=== PATIENT | male | born 1950 | race Caucasian/White ===

== ENCOUNTER → 2017-10-17 14:05 | Outpatient (CLI) | payer MEDICARE, SELFPAY ==
--- NOTE | 2017-10-17 | DI.US.S_ITS ---
PROCEDURE: US PERIPH VENOUS LOW EXTREM LT INDICATIONS: PAIN AND SWELLING LEFT LEG TECHNIQUE: Real-time imaging, as well as color and pulse Doppler interrogation, were performed of the lower extremity deep veins from the inguinal ligament to the popliteal fossa. COMPARISON: None. FINDINGS: The deep veins are normally compressible, and free of intraluminal thrombus. Color and pulse Doppler demonstrate normal phasic intraluminal flow. There is normal augmentation response to distal compression maneuver. IMPRESSION: No DVT in the left lower extremity. Dictated by: Audelia Casey M.D. on 10/17/2017 at 15:35 Approved by: Audelia Casey M.D. on 10/17/2017 at 15:36
== END ==
PROVIDERS: Family Provider Orthopaedic Surgery; PCP Internal Medicine; Visit Provider Internal Medicine
DX: M79.605 Pain in left leg (principal); M79.89 Other specified soft tissue disorders
CPT/HCPCS: 93971

== ENCOUNTER → 2017-10-24 08:29 | Outpatient (CLI) | payer MEDICARE, SELFPAY ==
[2017-10-24 09:59] LABS: Alanine Aminotransferase 28 IU/L (21-72); Albumin 4.2 g/dL (3.5-5.0); Albumin Globulin Ratio 1.4 (1.0-2.8); Alkaline Phosphatase 47 U/L (38-126); Aspartate Aminotransferase 24 IU/L (17-59); BUN Creatinine Ratio 24.4 (6-22); Blood Urea Nitrogen 22 mg/dL (9-20); Calcium 9.3 mg/dL (8.4-10.2); Carbon Dioxide 33 mmol/L (22-32); Chloride 101 mmol/L (98-107); Estimated Glomerular Filt Rate > 60.0 mL/min (>60); Globulin 2.9 g/dL (1.7-4.1); Glucose 103 mg/dL (80-110); HEMOLYSIS < 15 (0-50); Potassium 3.9 mmol/L (3.4-5.1); Sodium 142 mmol/L (137-145); Total Protein 7.1 g/dL (6.3-8.2)
== END ==
PROVIDERS: PCP Internal Medicine; Visit Provider Internal Medicine Cardiovascular Disease
DX: I48.2 Chronic atrial fibrillation (principal); I42.9 Cardiomyopathy, unspecified
CPT/HCPCS: 36415; 80053

== ENCOUNTER → 2018-01-02 08:06 | Outpatient (CLI) | payer MEDICARE, SELFPAY ==
[2018-01-02 10:00] LABS: Add Manual Diff / Slide Review NO; Basophils Percent Auto 0.3 % (0-2); Eosinophils Percent Auto 1.9 % (2-4); Hematocrit 47.9 % (41-53); Lymphocytes Percent Auto 23.9 % (25-40); Mean Corpuscular HGB Conc 33.4 % (30-36); Mean Corpuscular Hemoglobin 32.4 PG (26-34); Monocytes Percent Auto 12.9 % (3-14); Neutrophils Absolute Auto 2600 /uL (3000-5900); Platelet Count 221 X10^3/uL (150-400); Red Blood Cell Count 4.94 X10^6/uL (4.5-5.9); Red Cell Distribution Width 14.7 % (11.6-14.8); White Blood Cell Count 4.3 X10^3/uL (4.5-11.0)
[2018-01-02 10:19] LABS: Erythrocyte Sedimentation Rate 1 MM/HR (0-15)
[2018-01-02 10:52] LABS: Alanine Aminotransferase 30 IU/L (21-72); Albumin 4.3 g/dL (3.5-5.0); Albumin Globulin Ratio 1.3 (1.0-2.8); Alkaline Phosphatase 48 U/L (38-126); Aspartate Aminotransferase 30 IU/L (17-59); BUN Creatinine Ratio 26.3 (6-22); Blood Urea Nitrogen 21 mg/dL (9-20); Calcium 9.1 mg/dL (8.4-10.2); Carbon Dioxide 28 mmol/L (22-32); Chloride 104 mmol/L (98-107); Cholesterol 187 mg/dL (140-199); Estimated Glomerular Filt Rate > 60.0 mL/min (>60); Globulin 3.2 g/dL (1.7-4.1); Glucose 101 mg/dL (80-110); HDL Cholesterol 47 mg/dL (40-60); LDL Cholesterol Calculated 113 mg/dL (<100); Potassium 3.9 mmol/L (3.4-5.1); Sodium 144 mmol/L (137-145); Total Protein 7.5 g/dL (6.3-8.2); Triglycerides 135 mg/dL (35-150)
[2018-01-02 11:58] LABS: HEMOLYSIS < 15 (0-50)
== END ==
PROVIDERS: PCP Internal Medicine; Visit Provider Internal Medicine
DX: I48.2 Chronic atrial fibrillation (principal); M15.0 Primary generalized (osteo)arthritis; E29.1 Testicular hypofunction; I50.22 Chronic systolic (congestive) heart failure
CPT/HCPCS: 36415; 80053; 80061; 84403; 85025; 85651

== ENCOUNTER → 2018-05-29 08:28 | Outpatient (CLI) | payer MEDICARE, SELFPAY ==
[2018-05-29 10:00] LABS: Cholesterol 201 mg/dL (140-199); HDL Cholesterol 47 mg/dL (40-60); LDL Cholesterol Calculated 124 mg/dL (<100); Triglycerides 152 mg/dL (35-150)
[2018-05-29 10:32] LABS: Testosterone 81.2 ng/dL (71.8-623)
== END ==
PROVIDERS: PCP Internal Medicine; Visit Provider Internal Medicine
DX: I10 Essential (primary) hypertension (principal); E29.1 Testicular hypofunction
CPT/HCPCS: 36415; 80061; 84403

== ENCOUNTER → 2018-09-06 07:06 | Outpatient (CLI) | payer MEDICARE, SELFPAY ==
[2018-09-06 08:32] LABS: Add Manual Diff / Slide Review NO; Basophils Absolute Auto 0 /uL (0-100); Basophils Percent Auto 0.5 % (0-2); Eosinophils Absolute Auto 0 /uL (0-450); Eosinophils Percent Auto 1.1 % (2-4); Hematocrit 48.1 % (41-53); Hemoglobin 16.1 g/dL (13.5-17.5); Lymphocytes Absolute Auto 900 /uL (1100-4500); Lymphocytes Percent Auto 21.2 % (25-40); Mean Corpuscular HGB Conc 33.4 % (30-36); Mean Corpuscular Hemoglobin 33.1 PG (26-34); Mean Corpuscular Volume 98.9 fL (80-100); Monocytes Absolute Auto 500 /uL (0-900); Monocytes Percent Auto 11.1 % (3-14); Neutrophils Absolute Auto 2900 /uL (1500-7000); Neutrophils Percent Auto 66.1 % (50-75); Platelet Count 228 X10^3/uL (150-400); Red Blood Cell Count 4.86 X10^6/uL (4.5-5.9); Red Cell Distribution Width 14.7 % (11.6-14.8); White Blood Cell Count 4.5 X10^3/uL (4.5-11.0)
[2018-09-06 08:44] LABS: Alanine Aminotransferase 25 IU/L (21-72); Albumin 4.2 g/dL (3.5-5.0); Albumin Globulin Ratio 1.4 (1.0-2.8); Alkaline Phosphatase 52 U/L (38-126); Aspartate Aminotransferase 28 IU/L (17-59); BUN Creatinine Ratio 27.8 (6-22); Bilirubin Total 0.7 mg/dL (0.2-1.3); Blood Urea Nitrogen 25 mg/dL (9-20); Calcium 9.5 mg/dL (8.4-10.2); Carbon Dioxide 32 mmol/L (22-32); Chloride 101 mmol/L (98-107); Cholesterol 193 mg/dL (140-199); Estimated Glomerular Filt Rate > 60.0 mL/min (>60); Globulin 2.9 g/dL (1.7-4.1); Glucose 105 mg/dL (80-110); HDL Cholesterol 52 mg/dL (40-60); HEMOLYSIS 20 (0-50); LDL Cholesterol Calculated 109 mg/dL (<100); Potassium 4.5 mmol/L (3.4-5.1); Sodium 139 mmol/L (137-145); Total Protein 7.1 g/dL (6.3-8.2); Triglycerides 158 mg/dL (35-150)
== END ==
PROVIDERS: PCP Internal Medicine; Visit Provider Internal Medicine Cardiovascular Disease
DX: E78.5 Hyperlipidemia, unspecified (principal); I48.2 Chronic atrial fibrillation; I42.9 Cardiomyopathy, unspecified
CPT/HCPCS: 36415; 80053; 80061; 85025

== ENCOUNTER → 2019-02-25 08:25 | Outpatient (CLI) | payer MEDICARE, SELFPAY ==
[2019-02-28 17:15] LABS: Sex Hormone Binding Globulin 33 nmol/L (22-77); Testosterone, Bioavailable 144.9 ng/dL (15.0-150.0); Testosterone, Total 553 ng/dL (250-1100); Testosterone,Free 78.8 pg/mL (6.0-73.0)
== END ==
PROVIDERS: PCP Student in an Organized Health Care Education/Training Program; Visit Provider Student in an Organized Health Care Education/Training Program
DX: E29.1 Testicular hypofunction (principal)
CPT/HCPCS: 36415; 82040; 84270; 84403

== ENCOUNTER → 2019-06-11 12:03 | Outpatient (CLI) | payer MEDICARE, SELFPAY ==
[2019-06-11 12:55] LABS: Prothrombin Time 45.5 SECONDS (10.1-12.7)
== END ==
PROVIDERS: PCP Student in an Organized Health Care Education/Training Program; Referring Provider Internal Medicine Cardiovascular Disease; Visit Provider Internal Medicine Cardiovascular Disease
DX: I48.0 Paroxysmal atrial fibrillation (principal)
CPT/HCPCS: 36415; 85610

== ENCOUNTER → 2019-11-04 12:32 | Outpatient (CLI) | payer MEDICARE, SELFPAY ==
[2019-11-05 12:51] LABS: COVID19 Sendout Not Detected (Not Detect)
== END ==
PROVIDERS: PCP Student in an Organized Health Care Education/Training Program; Visit Provider Physician Assistant
DX: Z11.59 Encounter for screening for other viral diseases (principal); R06.02 Shortness of breath
CPT/HCPCS: 87635

== ENCOUNTER 2019-11-19 09:36 | Emergency (ER) | payer MEDICARE, SELFPAY ==
[2019-11-19 09:40] VITALS: BP 123/72; PULSE 64; RESP 14; TEMP 36.7; O2SAT 96
[2019-11-19 10:10] LABS: Add Manual Diff / Slide Review NO; Basophils Absolute Auto 0 /uL (0-100); Basophils Percent Auto 0.3 % (0-2); Eosinophils Absolute Auto 0 /uL (0-450); Eosinophils Percent Auto 0.3 % (2-4); Hemoglobin 15.3 g/dL (13.5-17.5); Lymphocytes Absolute Auto 600 /uL (1100-4500); Mean Corpuscular HGB Conc 33.4 % (30-36); Mean Corpuscular Hemoglobin 32.9 PG (26-34); Mean Corpuscular Volume 98.6 fL (80-100); Monocytes Absolute Auto 800 /uL (0-900); Monocytes Percent Auto 8.9 % (3-14); Neutrophils Absolute Auto 7500 /uL (1500-7000); Neutrophils Percent Auto 83.5 % (50-75); Platelet Count 183 X10^3/uL (150-400); Red Blood Cell Count 4.66 X10^6/uL (4.5-5.9)
[2019-11-19 10:18] LABS: INR 3.8 (0.9-1.3); Prothrombin Time 43.1 SECONDS (10.1-12.7)
[2019-11-19 10:20] LABS: PTT Partial Thromboplastin Tim 46 SECONDS (26.4-36.2)
[2019-11-19 10:21] LABS: Alanine Aminotransferase 21 IU/L (<50); Albumin 4.1 g/dL (3.5-5.0); Albumin Globulin Ratio 1.3 (1.0-2.8); Alkaline Phosphatase 48 U/L (38-126); Aspartate Aminotransferase 35 IU/L (17-59); BUN Creatinine Ratio 28.1 (6-22); Bilirubin Total 1.3 mg/dL (0.2-1.3); Blood Urea Nitrogen 25 mg/dL (9-20); Calcium 9.3 mg/dL (8.4-10.2); Carbon Dioxide 26 mmol/L (22-32); Chloride 105 mmol/L (98-107); Estimated Glomerular Filt Rate > 60.0 mL/min (>60); Globulin 3.2 g/dL (1.7-4.1); Glucose 108 mg/dL (80-110); Lipase 85 U/L (23-300); Potassium 4.3 mmol/L (3.4-5.1); Sodium 137 mmol/L (137-145); Total Protein 7.3 g/dL (6.3-8.2)
[2019-11-19 10:22] LABS: HEMOLYSIS 67 (0-50)
[2019-11-19 10:27] VITALS: PULSE 57; O2SAT 96
[2019-11-19 10:30] VITALS: PULSE 54; O2SAT 95
[2019-11-19 10:31] VITALS: BP 109/58; PULSE 59; O2SAT 93
[2019-11-19] MEDS: PHENAZOPYRIDINE 100 MG TABLET PO (10:43)
[2019-11-19 10:49] LABS: Ictotest Urine Negative (Negative); RBC Urine 5-10/HPF (0-5/HPF)
[2019-11-19 10:50] LABS: Bacteria Urine Moderate (10-30); Culture Indicated Urine Specimen Cultured; Hyaline Casts Urine 0-1/LPF; WBC Urine 30-100/HPF (0-5/HPF)
--- NOTE | 2019-11-19 10:51 | ED_ITS ---
HPI - Male Genitourinary General Chief complaint: Urogenital-Male Stated complaint: Says he might have a kidney stone. Time Seen by Provider: 11/19/19 09:59 Source: patient Mode of arrival: Ambulatory Limitations: no limitations History of Present Illness HPI Narrative: Patient here with . Complains of urinary urgency as well as dysuria. Onset 4:00 a.m. this morning. Awoke him at distally. Has suprapubic discomfort. No other abdominal pain. No flank pain back pain chest pain. No fever or chills. Has history of enlarged prostate followed by family physician which is a new provider. Does not have a urologist. In no distress at this time. Patient was on Augmentin for pneumonia earlier this month Related Data Home Medications Medication Instructions Recorded Confirmed carvedilol 12.5 mg tablet 12.5 mg PO BID 10/18/18 11/04/19 furosemide 40 mg tablet 40 mg PO DAILY 10/18/18 11/04/19 lisinopril 10 mg tablet 10 mg PO DAILY 10/18/18 11/04/19 warfarin 10 mg tablet 5 mg PO DAILY 12/25/18 11/04/19 Previous Rx's Medication Instructions Recorded tadalafil 2.5 mg tablet 2.5 mg PO BEDTIME #90 tab 01/24/19 omeprazole magnesium 20 mg 20 mg PO BID #180 cap 02/04/19 capsule,delayed release testosterone 30 mg/actuation (1.5 2 pump TOP DAILY #270 ml 06/18/19 mL) transderm solution metered pump terazosin 5 mg capsule 5 mg PO BEDTIME #90 cap 06/26/19 dicyclomine 10 mg capsule 10 mg PO BID #180 cap 09/13/19 nitrofurantoin monohyd/m-cryst 100 mg PO Q12H 5 Days #10 cap 11/19/19 [Macrobid] phenazopyridine [Pyridium] 100 mg PO TID PRN #6 tab 11/19/19 Allergies Allergy/AdvReac Type Severity Reaction Status Date / Time latex [LATEX] Allergy Intermediate Verified 11/19/19 10:33 CAT/DOG DANDER Allergy Intermediate WATERY,ITCHY Uncoded 08/30/19 14:36 EYES,COUGHING/SNEEZING FITS DUST MITES Allergy Intermediate WATERY/ITCHY Uncoded 08/30/19 14:36 EYES,COUGH,SNEEZING MULTIPLE FOOD ALLERGIES Allergy Intermediate STOMACH Uncoded 08/30/19 14:36 CRAMPS,DIARRHEA GRASS,T Allergy Unknown WATERY Uncoded 08/30/19 14:36 EYES,COUGHING/SNEEZING Review of Systems Review of Systems Narrative: GENERAL: Denies chills, fatigue, malaise, fever, sweats. HEENT: Denies sinus pain, ear pain, sore throat, difficulty swallowing, dizziness. RESPIRATORY: Denies dyspnea, cough, wheezing, hemoptysis, sputum. CARDIOVASCULAR: Denies chest pain, palpitations, orthopnea, edema, GASTROINTESTINAL: Denies nausea, vomiting, abdominal pain, diarrhea, constipation, melena. : Complains of dysuria, frequency, denies incontinence, hematuria, urinary retention. MUSCULOSKELETAL: denies weakness, joint pain, or bony pain SKIN: Denies rash, skin lesions, or other NEUROLOGIC: Denies weakness, headache, numbness, change in speech, confusion, seizures, incoordination. PSYCHIATRIC: No concerning psychosocial issues. ROS Unobtainable: All systems reviewed & are unremarkable except as noted in HPI and below Patient History Medical History Atrial fibrillation (Chronic ~2014) Chicken pox (Resolved ~1959) Chronic back pain (Chronic ~2009) Deep vein thrombosis (Inactive ~1989) Foot pain (Inactive ~1989) Fractures (Resolved ~1989) Irritable bowel syndrome (Chronic ~2014) Low testosterone (Inactive ~1989) Measles (Resolved ~1959) Pneumonia (Acute) Sleep apnea (Chronic ~1989) Surgical History Anesthesia (Resolved) [place] filter in place (Resolved ~1992) History of back surgery (Inactive) History of surgery (Resolved ~2015) History of tonsillectomy (Resolved) Social History Smoking Status: Never smoker Smoking Status: Never smoker alcohol intake frequency: 3 or more drinks per day Substance Use Type: does not use Exam Narrative Exam Narrative: GENERAL: patient appears stated age. Well-nourished, well- developed patient, in no distress, not toxic HEAD: Atraumatic. Normocephalic. EYES: Pupils equal round and reactive. Extraocular motions intact. No scleral icterus. No injection or drainage. ENT: Nose without bleeding, purulent drainage. Throat without erythema, tonsillar hypertrophy or exudate. Airway patent. NECK: Trachea midline. Non tender GASTROINTESTINAL: Abdomen soft, non-tender, nondistended. EXTREMITIES: No edema or joint tenderness. BACK: Nontender without deformity or crepitance. No flank tenderness. NEURO: AOx3. SKIN: No rash or erythema of visible areas PSYCH: Not anxious, is cooperative Initial Vital Signs Initial Vital Signs: Vital Signs Temperature 98.1 F 11/19/19 09:40 Pulse Rate 64 11/19/19 09:40 Respiratory Rate 14 11/19/19 09:40 Blood Pressure 123/72 11/19/19 09:40 Pulse Oximetry 96 11/19/19 09:40 Course Orders Ordered: Discontinued Medications Nitrofurantoin Macrocrystals (Macrobid 100 Mg Capsule) 100 mg PO NOW ONE Stop: 11/19/19 11:50 Last Admin: 11/19/19 12:23 Dose: 100 mg Documented by: SCANSTUARTO Phenazopyridine HCl (Pyridium) 100 mg PO NOW ONE Stop: 11/19/19 10:35 Last Admin: 11/19/19 10:43 Dose: 100 mg Documented by: SCANAPO Vital Signs Vital signs: Vital Signs - 8 hr 11/19/19 09:40 11/19/19 10:27 11/19/19 10:30 Temperature 98.1 F Pulse Rate 64 57 L 54 L Respiratory Rate 14 Blood Pressure 123/72 Pulse Oximetry 96 96 95 11/19/19 10:31 11/19/19 11:00 11/19/19 11:49 Temperature Pulse Rate 59 L 60 52 L Respiratory Rate Blood Pressure 109/58 L 102/58 L 120/59 L Pulse Oximetry 93 95 97 MDM - Male Genitourinary Differential Diagnosis Differential diagnosis: Likely urinary tract infection, urethritis, acute retention of urine and other (Kidney stone) Lab Data Attestation: I reviewed the patient's lab results. Result diagrams: 11/19/19 10:00 11/19/19 10:00 Labs: Lab Results 11/19/19 11/19/19 11/19/19 Range/Units 10:00 10:00 10:00 WBC 9.0 (4.5-11.0) X10^3/uL RBC 4.66 (4.5-5.9) X10^6/uL Hgb 15.3 (13.5-17.5) g/dL Hct 46.0 (41-53) % MCV 98.6 (80-100) fL MCH 32.9 (26-34) PG MCHC 33.4 (30-36) % RDW 15.0 H (11.6-14.8) % Plt Count 183 (150-400) X10^3/uL Neut % (Auto) 83.5 H (50-75) % Lymph % (Auto) 7.0 L (25-40) % [place] % (Auto) 8.9 (3-14) % Eos % (Auto) 0.3 L (2-4) % Baso % (Auto) 0.3 (0-2) % Neut # (Auto) 7500 H (6897-1155) /uL Lymph # (Auto) 600 L (7880-5488) /uL [place] # (Auto) 800 (0-900) /uL Eos # (Auto) 0 (0-450) /uL Baso # (Auto) 0 (0-100) /uL PT 43.1 H (10.1-12.7) SECONDS INR 3.8 H (0.9-1.3) APTT 46 H (26.4-36.2) SECONDS Sodium 137 (137-145) mmol/L Potassium 4.3 (3.4-5.1) mmol/L Chloride 105 (98-107) mmol/L Carbon Dioxide 26 (22-32) mmol/L BUN 25 H (9-20) mg/dL Creatinine 0.89 (0.66-1.25) mg/dL Estimated GFR > 60.0 (>60) mL/min BUN/Creatinine Ratio 28.1 H (6-22) Glucose 108 (80-110) mg/dL Calcium 9.3 (8.4-10.2) mg/dL Total Bilirubin 1.3 (0.2-1.3) mg/dL AST 35 (17-59) IU/L ALT 21 (<50) IU/L Alkaline Phosphatase 48 (38-126) U/L Total Protein 7.3 (6.3-8.2) g/dL Albumin 4.1 (3.5-5.0) g/dL Globulin 3.2 (1.7-4.1) g/dL Albumin/Globulin Ratio 1.3 (1.0-2.8) Lipase 85 (23-300) U/L Ur Bilirubin Confirm (Negative) Urine RBC (0-5/HPF) Urine WBC (0-5/HPF) Urine Bacteria (None) Hyaline Casts (None) Ur Culture Indicated? 11/19/19 Range/Units 10:20 WBC (4.5-11.0) X10^3/uL RBC (4.5-5.9) X10^6/uL Hgb (13.5-17.5) g/dL Hct (41-53) % MCV (80-100) fL MCH (26-34) PG MCHC (30-36) % RDW (11.6-14.8) % Plt Count (150-400) X10^3/uL Neut % (Auto) (50-75) % Lymph % (Auto) (25-40) % [place] % (Auto) (3-14) % Eos % (Auto) (2-4) % Baso % (Auto) (0-2) % Neut # (Auto) (6574-1907) /uL Lymph # (Auto) (8979-0956) /uL [place] # (Auto) (0-900) /uL Eos # (Auto) (0-450) /uL Baso # (Auto) (0-100) /uL PT (10.1-12.7) SECONDS INR (0.9-1.3) APTT (26.4-36.2) SECONDS Sodium (137-145) mmol/L Potassium (3.4-5.1) mmol/L Chloride (98-107) mmol/L Carbon Dioxide (22-32) mmol/L BUN (9-20) mg/dL Creatinine (0.66-1.25) mg/dL Estimated GFR (>60) mL/min BUN/Creatinine Ratio (6-22) Glucose (80-110) mg/dL Calcium (8.4-10.2) mg/dL Total Bilirubin (0.2-1.3) mg/dL AST (17-59) IU/L ALT (<50) IU/L Alkaline Phosphatase (38-126) U/L Total Protein (6.3-8.2) g/dL Albumin (3.5-5.0) g/dL Globulin (1.7-4.1) g/dL Albumin/Globulin Ratio (1.0-2.8) Lipase (23-300) U/L Ur Bilirubin Confirm Negative (Negative) Urine RBC 5-10/hpf H (0-5/HPF) Urine WBC 30-100/hpf H (0-5/HPF) Urine Bacteria Moderate (10-30) H (None) Hyaline Casts 0-1/lpf (None) Ur Culture Indicated? Specimen cultured Urine Dip Bedside Urine Glucose Negative Bedside Urine Bilirubin + 1 Bedside Urine Ketone +/- 5 Urine Specific [place] 1.015 Bedside Urine Occult Blood + Bedside Urine pH 5.5 Bedside Urine Protein + 30 Bedside Urine Urobilinogen +/- 1mg Bedside Urine Nitrite - Negative Bedside Urine Leukocytes ++ [address] scan - abdomen/pelvis: Radiologist's Impression: [address] [address] [address] Scan Report Signed Patient: Anderson Duarte CMR#: [id number] : 8Acct:[id number] Age/Sex: 69 / MDate of Service: 11/19/19 Loc: ED Accession Number: [id number] Procedure: CT abdomen pelvis wo con Ordering Provider: Lázaro Zuniga MD PROCEDURE: CT ABDOMEN PELVIS WO CON INDICATIONS: Dysuria/hematuria TECHNIQUE: Noncontrast 5 mm thick sections acquired from the diaphragms to the symphysis. 5 mm thick coronal and sagittal reformats were then performed. For radiation dose reduction, the following was used: automated exposure control, adjustment of mA and/or kV according to patient size. COMPARISON: [facility], CT, KIDNEY/ URETER/BLADDER, 01/07/2014, 23:56. [facility], CT, CT-IVP, 08/22/2007, 13:49. FINDINGS: Image quality: Excellent. Lung bases: Lung bases are clear. Heart size is mildly increased. There is a small hiatal hernia. Urinary system: Both kidneys are normal in size. No kidney stones. No hydronephrosis. Mild bilateral perinephric fat stranding. Both ureters appear non-dilated throughout their expected courses. Bladder wall thickness is normal; no calcified bladder stones. Other solid organs: Liver is normal in size. Gallbladder is normal. Pancreas is normal in contours. Spleen is normal in size. No adrenal nodules. Peritoneum and bowel: Unenhanced bowel loops demonstrate normal wall thickness and caliber. There are scattered colonic diverticula. No CT findings to suggest acute diverticulitis. No free fluid or air. There is mild stranding in the mesentery and numerous small normal sized mesenteric lymph nodes. Nodes and vessels: No retroperitoneal or mesenteric adenopathy by size criteria. Aorta and inferior vena cava are normal in caliber. There is an IVC filter. Abdominal wall: There is a small fat containing umbilical hernia. Pelvis: No free pelvic fluid. No inguinal adenopathy. There is a small fat containing right inguinal hernia. Bones: No suspicious bony lesions. No vertebral body compression fractures. IMPRESSION: 1. No renal stone or ureteral stone. No hydronephrosis. Mild bilateral perinephric stranding. 2. Mild diverticulosis without acute diverticulitis. 3. Mild stranding in the mesentery and numerous small normal sized mesenteric lymph nodes, consistent with mild mesenteric panniculitis and adenitis. 4. Small hiatal hernia. Dictated by: Audelia Casey M.D. on 11/19/2019 at 10:39 Approved by: Audelia Casey M.D. on 11/19/2019 at 10:53 MDM Narrative Medical decision making narrative: CT scan results nonspecific. Clinically will treat for UTI. Appropriate for discharge home. Laboratory studies reviewed. Not toxic. Discharge Plan Departure Patient Disposition: Home Clinical Impression: Urinary tract infection Qualifiers: Urinary tract infection type: site unspecified Hematuria presence: with hematuria Qualified Code(s): N39.0 - Urinary tract infection, site not specified Discharge Date/Time: 11/19/19 12:34 Instructions: DI for Urinary Tract Infection (UTI) Activity Restrictions/Additional Instructions: Return if worse or if new questions or concerns or fever or increased pain. Return if any nausea or vomiting. See family doctor in a week for recheck. Keep well hydrated. Continue prescribed antibiotic. Prescriptions: New nitrofurantoin monohyd/m-cryst [Macrobid] 100 mg capsule 100 mg PO Q12H 5 Days Qty: 10 RF: 0 phenazopyridine [Pyridium] 100 mg tablet 100 mg PO TID PRN (Reason: pain) Qty: 6 RF: 0 No Action carvedilol 12.5 mg tablet 12.5 mg PO BID RF: 0 furosemide 40 mg tablet 40 mg PO DAILY RF: 0 lisinopril 10 mg tablet 10 mg PO DAILY RF: 0 tadalafil 2.5 mg tablet 2.5 mg PO BEDTIME Qty: 90 RF: 1 omeprazole magnesium 20 mg capsule,delayed release(DR/EC) 20 mg PO BID Qty: 180 RF: 3 testosterone 30 mg/actuation (1.5 mL) solution in metered pump w/fabio 2 pump TOP DAILY Qty: 270 RF: 5 terazosin 5 mg capsule 5 mg PO BEDTIME Qty: 90 RF: 3 dicyclomine 10 mg capsule 10 mg PO BID Qty: 180 RF: 1 warfarin [Jantoven] 10 mg tablet 5 mg PO DAILY RF: 0 Referrals: Brandon Houston MD [Primary Care Provider] -
[2019-11-19 11:00] VITALS: BP 102/58; PULSE 60; O2SAT 95
[2019-11-19 11:49] VITALS: BP 120/59; PULSE 52; O2SAT 97
[2019-11-19] MEDS: NITROFURANTOIN ER 100 MG CAPSULE PO (12:23)
== END 2019-11-19 12:34 | disposition home or self-care (01) ==
PROVIDERS: Emergency Provider Emergency Medicine; PCP Student in an Organized Health Care Education/Training Program
DX: N39.0 Urinary tract infection, site not specified (principal); R31.9 Hematuria, unspecified; N40.0 Benign prostatic hyperplasia without lower urinary tract symptoms
CPT/HCPCS: 36415; 74176; 80053; 81003; 81015; 83690; 85025; 85610; 85730; 87077; 87086; 87186; 99284

== ENCOUNTER → 2019-11-27 15:43 | Outpatient (CLI) | payer MEDICARE, SELFPAY ==
--- NOTE | 2019-11-27 15:45 | DI.RAD.S_ITS ---
PROCEDURE: XR CHEST 2V INDICATIONS: Chest congestion TECHNIQUE: 2 views of the chest were acquired. COMPARISON: Merged With [facility], , CHEST 1 VIEW, 02/24/2014, 19:58. Merged With [facility], , CHEST 2 VIEW, 05/24/2013, 19:14. FINDINGS: Surgical changes and devices: None. Lungs and pleura: Lungs are abnormal with a chronic interstitial prominence. No pleural effusions or pneumothorax. Mediastinum: Mediastinal contours are normal. Heart size is mildly enlarged. Bones and chest wall: No suspicious bony abnormalities. Soft tissues appear unremarkable. IMPRESSION: Mild chronic cardiomegaly, mild chronic interstitial prominence. Episodic CHF likely explains the interstitial prominence, which also can be induced by episodic pulmonary edema over time. Dictated by: Toby Prabhakar M.D. on 11/27/2019 at 16:10 Approved by: Toby Prabhakar M.D. on 11/27/2019 at 16:11
== END ==
PROVIDERS: PCP Student in an Organized Health Care Education/Training Program; Referring Provider Student in an Organized Health Care Education/Training Program; Visit Provider Student in an Organized Health Care Education/Training Program
DX: J18.9 Pneumonia, unspecified organism (principal)
CPT/HCPCS: 71046

== ENCOUNTER → 2019-12-23 08:18 | Outpatient (CLI) | payer MEDICARE, SELFPAY ==
[2019-12-23 09:22] LABS: BUN Creatinine Ratio 22.6 (6-22); Blood Urea Nitrogen 19 mg/dL (9-20); Calcium 9.3 mg/dL (8.4-10.2); Carbon Dioxide 28 mmol/L (22-32); Chloride 105 mmol/L (98-107); Estimated Glomerular Filt Rate > 60.0 mL/min (>60); Glucose 92 mg/dL (80-110); HEMOLYSIS < 15 (0-50); Sodium 140 mmol/L (137-145)
== END ==
PROVIDERS: PCP Student in an Organized Health Care Education/Training Program; Referring Provider Physician Assistant; Visit Provider Physician Assistant
DX: I48.21 Permanent atrial fibrillation (principal); I42.8 Other cardiomyopathies
CPT/HCPCS: 36415; 80048

== ENCOUNTER → 2020-09-26 08:30 | Outpatient (CLI) | payer MEDICARE, SELFPAY ==
[2020-09-26 11:14] LABS: Clostridium Difficile Tox PCR Negative for C. diff (Negative)
== END ==
PROVIDERS: PCP Student in an Organized Health Care Education/Training Program; Referring Provider Student in an Organized Health Care Education/Training Program; Visit Provider Student in an Organized Health Care Education/Training Program
DX: K58.9 Irritable bowel syndrome, unspecified (principal); R19.7 Diarrhea, unspecified
CPT/HCPCS: 87045; 87493; 87899

== ENCOUNTER → 2020-12-18 09:05 | Outpatient (CLI) | payer MEDICARE, SELFPAY ==
[2020-12-18 10:17] LABS: Blood Urea Nitrogen 30 mg/dL (9-20); Calcium 10.2 mg/dL (8.4-10.2); Carbon Dioxide 33 mmol/L (22-32); Chloride 105 mmol/L (98-107); Estimated Glomerular Filt Rate > 60.0 mL/min (>60); Glucose 110 mg/dL (80-110); HEMOLYSIS < 15 (0-50); Potassium 4.8 mmol/L (3.4-5.1); Sodium 141 mmol/L (137-145)
== END ==
PROVIDERS: PCP Student in an Organized Health Care Education/Training Program; Referring Provider Physician Assistant; Visit Provider Physician Assistant
DX: I42.9 Cardiomyopathy, unspecified (principal)
CPT/HCPCS: 36415; 80048

== ENCOUNTER → 2021-10-19 14:10 | Outpatient (CLI) | payer MEDICARE, SELFPAY ==
[2021-10-19 15:22] LABS: Alanine Aminotransferase 33 IU/L (<50); Albumin 3.9 g/dL (3.5-5.0); Albumin Globulin Ratio 1.4 (1.0-2.8); Alkaline Phosphatase 95 U/L (38-126); Aspartate Aminotransferase 43 IU/L (17-59); BUN Creatinine Ratio 19.1 (6-22); Bilirubin Total 0.8 mg/dL (0.2-1.3); Blood Urea Nitrogen 29 mg/dL (9-20); Calcium 9.7 mg/dL (8.4-10.2); Carbon Dioxide 36 mmol/L (22-32); Chloride 102 mmol/L (98-107); Estimated Glomerular Filt Rate 48 mL/min (>60); Globulin 2.7 g/dL (1.7-4.1); Glucose 95 mg/dL (80-110); HEMOLYSIS < 15 (0-50); Potassium 4.1 mmol/L (3.4-5.1); Sodium 141 mmol/L (137-145); Total Protein 6.6 g/dL (6.3-8.2)
[2021-10-19 15:44] LABS: Vitamin D 25 Hydroxy (D3) 38.9 ng/mL (30.0-100.0)
== END ==
PROVIDERS: PCP Student in an Organized Health Care Education/Training Program; Referring Provider Student in an Organized Health Care Education/Training Program; Visit Provider Student in an Organized Health Care Education/Training Program
DX: E66.01 Morbid (severe) obesity due to excess calories (principal); E55.9 Vitamin D deficiency, unspecified; I48.91 Unspecified atrial fibrillation; Z79.899 Other long term (current) drug therapy
CPT/HCPCS: 36415; 80053; 82306

== ENCOUNTER 2021-10-22 18:49 | Emergency (ER) | payer MEDICARE, SELFPAY ==
[2021-10-22 18:55] VITALS: BP 117/77; PULSE 70; RESP 15; TEMP 36.9; O2SAT 97; BMI 40.4
--- NOTE | 2021-10-22 18:59 | DI.RAD.S_ITS ---
PROCEDURE: XR FOOT RT 2V INDICATIONS: wound right heel, toes 1/2. TECHNIQUE: Two views of the foot were acquired. COMPARISON: None. FINDINGS: Bones: No fractures or dislocations. No suspicious bony lesions. Plantar calcaneal spur. Soft tissues: No tibiotalar joint effusion. Achilles tendon was not well seen. There is small vessel calcification posteriorly. No soft tissue gas or foreign body. IMPRESSION: 1. No visible soft tissue gas or foreign body in the area of wounds. Dictated by: Sasha Zelaya M.D. on 10/22/2021 at 20:23 Approved by: Sasha Zelaya M.D. on 10/22/2021 at 20:24
--- NOTE | 2021-10-22 18:59 | ED.LOWEXIN ---
HPI - Extremity Injury (Lower) General Chief Complaint: Wound/Laceration Stated Complaint: Wound Time Seen by Provider: 10/22/21 18:59 Source: patient and old records reviewed Mode of arrival: EMS Limitations: no limitations History of Present Illness HPI Narrative: This is a 71-year-old male with history of AFib on Eliquis, CHF, chronic bilateral lower extremity weakness after some form of illness while in [place]. Patient lost the ability to ambulate and has had weakness and loss of sensation of his lower extremities since that time last January. Patient states he noticed some pain in his heel at the beginning of the week on Monday, it has been persistent and today when moving his leg wound opened up some pus and yellow purulent material drained. He is also had several small wounds on the knuckles of his toes. Patient states he does have decreased sensation in his feet. He states the toes of been curling for the last several weeks he can not straighten them any longer. States that he has weakness in his lower extremities he has proximal strength can lift and lower with his proximal muscles but can not flex extend the lower legs and he can plantar flex but can not dorsiflex. They have not been using any form of question or devices to prevent pressure ulcers. Patient denies any history of diabetes or issues with glucose. Does take gabapentin for pain. He has follow-up with [facility] for EMG and workup. He states that he was unconscious for several weeks or a month or 2 when he was in [place] had some form of viral illness is what he describes an and eventually regained consciousness but not his strength. Patient denies any allergies to medications. No tobacco, alcohol or illicit. He lives with his . His primary care is Dr. Houston. Related Data Home Medications Medication Instructions Recorded Confirmed fluticasone propionate 50 1 spray intranasal BID 10/14/21 10/19/21 mcg/actuation nasal spray,suspension (Flonase Allergy Relief) multivitamin 1 tab PO DAILY 10/14/21 10/19/21 Previous Rx's Medication Instructions Recorded amiodarone 200 mg tablet 200 mg PO DAILY #90 tabs 10/14/21 apixaban 5 mg tablet (Eliquis) 5 mg PO BID #180 tabs 10/14/21 carvedilol 6.25 mg tablet 6.25 mg PO BID #180 tabs 07/14/22 furosemide 20 mg tablet 20 mg PO BID #180 tabs 10/14/21 gabapentin 300 mg capsule 300 mg PO QD-BID #180 caps 10/14/21 omeprazole 20 mg capsule,delayed 20 mg PO DAILY #90 caps 10/14/21 release terazosin 5 mg capsule 5 mg PO BEDTIME #90 caps 10/14/21 clindamycin HCl 300 mg capsule 300 mg PO QID #40 caps 10/22/21 Allergies Allergy/AdvReac Type Severity Reaction Status Date / Time latex [LATEX] Allergy Intermediate Verified 10/22/21 19:02 CAT/DOG DANDER Allergy Intermediate WATERY,ITCHY Uncoded 09/22/20 09:40 EYES,COUGHING/SNEEZING FITS DUST MITES Allergy Intermediate WATERY/ITCHY Uncoded 09/22/20 09:40 EYES,COUGH,SNEEZING MULTIPLE FOOD ALLERGIES Allergy Intermediate STOMACH Uncoded 09/22/20 09:40 CRAMPS,DIARRHEA GRASS,T Allergy Unknown WATERY Uncoded 09/22/20 09:40 EYES,COUGHING/SNEEZING Review of Systems Review of Systems ROS Unobtainable: All systems reviewed & are unremarkable except as noted in HPI and below Patient History Medical History (Updated 10/22/21 @ 20:54 by Yahaira Mckeon DO) Atrial fibrillation (~2014) Chicken pox (~1959) Chronic back pain (~2009) Deep vein thrombosis (~1989) Foot pain (~1989) Fractures (~1989) Irritable bowel syndrome (~2014) Low testosterone (~1989) Measles (~1959) Pneumonia Sleep apnea (~1989) Surgical History Anesthesia Mehdi filter in place (~1992) History of back surgery History of surgery (~2015) History of tonsillectomy Social History Smoking Status: Never smoker Smoking Status: Never smoker alcohol intake frequency: 3 or more drinks per day Substance Use Type: does not use Exam Narrative Exam Narrative: GENERAL: Alert and oriented x three, obese male in mild distress. HEENT: Head normocephalic, atraumatic, EOMI, pupils reactive, face symmetric, moist mucous membranes NECK: Supple, full range of motion CARDIOVASCULAR: Regular rate and rhythm without murmurs, rubs or gallops. RESPIRATORY: Breath sounds equal bilaterally, no wheezes rales or rhonchi. ABDOMEN: Soft, nontender. Normoactive bowel sounds all 4 quadrants. No guarding or rebound, rigidity, no mass : No CVA tenderness EXTREMITIES: Patient has 2/5 strength of bilateral lower extremities at the proximal muscles, minimal to no movement of his lower legs. Has plantar flexion but no dorsiflexion. Toes are curled he is not able to straighten them bilaterally. Has wound that is approximately 3-1/2 x 3 cm on his right heel that shows subcutaneous tissue but no bone, there is a slight amount of erythema extending about 2 cm along the edge with no active purulent drainage there is serosanguineous drainage. Patient also has several small wounds that are 0.25 cm in size with some slight surrounding erythema over the proximal joint of the 1st and 2nd toe. Patient does not have sensation to touch over the toes he has some mild sensation over the feet but not significant. NEUROLOGICAL: Cranial nerves II through XII grossly intact. Moving all extremities SKIN: Warm, dry, no petechiae, no rashes or lesions otherwise noted. Initial Vital Signs Initial Vital Signs: Vital Signs Temperature 98.4 F 10/22/21 18:55 Pulse Rate 70 10/22/21 18:55 Respiratory Rate 15 10/22/21 18:55 Blood Pressure 117/77 10/22/21 18:55 Pulse Oximetry 97 10/22/21 18:55 Oxygen Delivery Method 10/22/21 18:55 Course Orders Ordered: ED Orders 10/22/21 18:59 XR foot RT 2V Stat 10/22/21 19:03 CBC Auto Diff [Complete Blood Count AUTO DIFF] Stat CMP [Comprehensive Metabolic Panel] Stat CRP [C-Reactive Protein Quant] Stat ESR [Erythrocyte Sedimentation Rate] Stat Lactate (Lactic Acid) Stat Procalcitonin Stat 10/22/21 19:05 Wound Culture and Gram Stain Stat 10/22/21 19:52 Blood Culture Stat Discontinued Medications Clindamycin Phosphate (Cleocin) 900 mg in 50 mls @ 50 mls/hr IV NOW ONE Stop: 10/22/21 20:05 Last Infusion: 10/22/21 21:11 Dose: 0 mls/hr Documented By: Admin: 10/22/21 20:09 Dose: 50 mls/hr Documented By: AT Vital Signs Vital signs: Vital Signs - 8 hr 10/22/21 18:55 10/22/21 21:07 10/22/21 22:17 Temperature 98.4 F Pulse Rate 70 71 56 L Respiratory Rate 15 18 16 Blood Pressure 117/77 93/52 L 95/68 Pulse Oximetry 97 99 99 Oxygen Delivery Method Room Air Room Air Room Air 10/23/21 00:03 Temperature Pulse Rate 63 Respiratory Rate 18 Blood Pressure 114/72 Pulse Oximetry 98 Oxygen Delivery Method Room Air MDM - Extremity Injury (Lower) Lab Data Result diagrams: 10/22/21 19:03 10/22/21 19:03 Labs: Lab Results 10/22/21 10/22/21 10/22/21 Range/Units 19:03 19:03 19:03 WBC 5.6 (4.5-11.0) X10^3/uL RBC 3.90 L (4.5-5.9) X10^6/uL Hgb 12.5 L (13.5-17.5) g/dL Hct 37.0 L (41-53) % MCV 95.0 (80-100) fL MCH 32.1 (26-34) PG MCHC 33.8 (30-36) % RDW 15.4 H (11.6-14.8) % Plt Count 201 (150-400) X10^3/uL Neut % (Auto) 69.2 (50-75) % Lymph % (Auto) 15.5 L (25-40) % Donley % (Auto) 10.1 (3-14) % Eos % (Auto) 4.6 H (2-4) % Baso % (Auto) 0.6 (0-2) % Neut # (Auto) 3900 (8229-3964) /uL Lymph # (Auto) 900 L (9230-3845) /uL Donley # (Auto) 600 (0-900) /uL Eos # (Auto) 300 (0-450) /uL Baso # (Auto) 0 (0-100) /uL ESR 39 H (0-15) MM/HR Sodium 139 (137-145) mmol/L Potassium 4.0 (3.4-5.1) mmol/L Chloride 101 (98-107) mmol/L Carbon Dioxide 34 H (22-32) mmol/L BUN 27 H (9-20) mg/dL Creatinine 1.42 H (0.66-1.25) mg/dL Estimated GFR 52 L (>60) mL/min BUN/Creatinine Ratio 19.0 (6-22) Glucose 110 (80-110) mg/dL Lactate 1.1 (0.7-2.1) mmol/L Calcium 9.4 (8.4-10.2) mg/dL Total Bilirubin 0.8 (0.2-1.3) mg/dL AST 39 (17-59) IU/L ALT 27 (<50) IU/L Alkaline Phosphatase 99 (38-126) U/L C-Reactive Protein 2.2 H (<1.0) mg/dL Total Protein 7.2 (6.3-8.2) g/dL Albumin 4.0 (3.5-5.0) g/dL Globulin 3.2 (1.7-4.1) g/dL Albumin/Globulin Ratio 1.3 (1.0-2.8) Procalcitonin 0.28 (<0.5) ng/mL Imaging Data Extremity x-ray #1: Radiologist's Impression: [address] [address] XRay Report Signed Patient: Anderson Duarte MR#: [id number] : 1950 Acct:[id number] Age/Sex: 71 / M Date of Service: 10/22/21 Loc: Accession Number: [id number] ?? Procedure: XR foot RT 2V Ordering Provider: Yahaira Mckeon D.O. PROCEDURE:? XR FOOT RT 2V ? INDICATIONS:? wound right heel, toes 1/2. ? TECHNIQUE:? Two views of the foot were acquired.? ? COMPARISON:? None. ? FINDINGS:? ? Bones:? No fractures or dislocations.? No suspicious bony lesions.? Plantar calcaneal spur. ? Soft tissues:? No tibiotalar joint effusion.? Achilles tendon was not well seen.? There is small vessel calcification posteriorly.? No soft tissue gas or foreign body. ? ? IMPRESSION:? ? 1. No visible soft tissue gas or foreign body in the area of wounds.? ? ? Dictated by: Sasha Zelaya M.D. on 10/22/2021 at 20:23 ? ? Approved by: Sasha Zelaya M.D. on 10/22/2021 at 20:24?? [facility] Narrative Medical decision making narrative: This is a 71-year-old male with some form of illness that caused permanent weakness in his bilateral lower extremities with minimal movement and appears to have developed a pressure ulcer on his right heel and possibly traumatic wounds over his toes as well. X-ray, labs were obtained to evaluate for possible underlying osteomyelitis. Patient's ESR CRP are slightly elevated, his x-ray does not show obvious changes consistent with osteomyelitis. Patient's wound just developed in the last day so my suspicion for osteomyelitis is low but we discussed following up for recheck, wound care, patient's has heel protectors at home but also given handout with options available for the patient. He has already been in touch to try to get referral for wound care and 1 was sent here from the department as well. Plan to cover for oral antibiotic as there is some slight erythema surrounding no signs of sepsis at this time, labs are otherwise reassuring. Patient and family were recommended to return if any worsening symptoms or changes. Discharge Plan Departure Patient Disposition: Home Clinical Impression: Pressure ulcer of right heel, Wound, open, toe Instructions: Pressure Injuries Activity Restrictions/Additional Instructions: Talk with your neurologist to let them know you have noticed that your toes your starting to curl, they may adjust your workup. You appear to have developed a pressure ulcer on the heel of your right foot. Please use the heel protectors at home, I have also included a link for alternatives if you are unable to find yours. These kinds of wounds can develop infections all the way down to the bone if it is not healing well with wound care you may need either MRI or bone scan to more fully evaluate. Take antibiotics until completely gone. Washing pat dry area daily. Make sure to monitor the wound each day. No long-term soaks or baths but you can shower. Prescription sent to [facility] in [place]. Please return for fevers, increasing pain, increasing redness, drainage, purulent drainage, if you are having increasing swelling or signs of worsening infection. Prescriptions: New clindamycin HCl 300 mg capsule 300 mg PO QID Qty: 40 0RF No Action omeprazole 20 mg capsule,delayed release(DR/EC) 20 mg PO DAILY Qty: 90 0RF multivitamin Tablet 1 tab PO DAILY fluticasone propionate [Flonase Allergy Relief] 50 mcg/actuation spray,suspension 1 spray intranasal BID Rx Instructions: administer into each nostril amiodarone 200 mg tablet 200 mg PO DAILY Qty: 90 3RF Eliquis 5 mg tablet 5 mg PO BID Qty: 180 3RF carvedilol 6.25 mg tablet 6.25 mg PO BID Qty: 180 3RF furosemide 20 mg tablet 20 mg PO BID Qty: 180 0RF gabapentin 300 mg capsule 300 mg PO QD-BID Qty: 180 1RF terazosin 5 mg capsule 5 mg PO BEDTIME Qty: 90 3RF Referrals: Brandon Houston MD [Primary Care Provider] - Visit Report Forms: Patient Portal/API
[2021-10-22 19:25] LABS: Add Manual Diff / Slide Review NO; Basophils Absolute Auto 0 /uL (0-100); Basophils Percent Auto 0.6 % (0-2); Eosinophils Absolute Auto 300 /uL (0-450); Eosinophils Percent Auto 4.6 % (2-4); Hemoglobin 12.5 g/dL (13.5-17.5); Lymphocytes Absolute Auto 900 /uL (1100-4500); Lymphocytes Percent Auto 15.5 % (25-40); Mean Corpuscular HGB Conc 33.8 % (30-36); Mean Corpuscular Hemoglobin 32.1 PG (26-34); Monocytes Absolute Auto 600 /uL (0-900); Monocytes Percent Auto 10.1 % (3-14); Neutrophils Absolute Auto 3900 /uL (1500-7000); Neutrophils Percent Auto 69.2 % (50-75); Platelet Count 201 X10^3/uL (150-400); Red Cell Distribution Width 15.4 % (11.6-14.8); White Blood Cell Count 5.6 X10^3/uL (4.5-11.0)
[2021-10-22 19:30] LABS: Lactate (Lactic Acid) 1.1 mmol/L (0.7-2.1)
[2021-10-22 19:34] LABS: Alanine Aminotransferase 27 IU/L (<50); Albumin Globulin Ratio 1.3 (1.0-2.8); Alkaline Phosphatase 99 U/L (38-126); Aspartate Aminotransferase 39 IU/L (17-59); Bilirubin Total 0.8 mg/dL (0.2-1.3); Blood Urea Nitrogen 27 mg/dL (9-20); C-Reactive Protein Quant 2.2 mg/dL (<1.0); Calcium 9.4 mg/dL (8.4-10.2); Carbon Dioxide 34 mmol/L (22-32); Chloride 101 mmol/L (98-107); Estimated Glomerular Filt Rate 52 mL/min (>60); Globulin 3.2 g/dL (1.7-4.1); Glucose 110 mg/dL (80-110); HEMOLYSIS < 15 (0-50); Sodium 139 mmol/L (137-145); Total Protein 7.2 g/dL (6.3-8.2)
[2021-10-22 19:45] LABS: Erythrocyte Sedimentation Rate 39 MM/HR (0-15)
[2021-10-22 19:49] LABS: Procalcitonin 0.28 ng/mL (<0.5)
--- NOTE | 2021-10-22 20:06 | PC.NURSE ---
Silicone foam dressing applied to left heel, duoderm padded dressing applied to right heel. Education about off loading heels provided to and pt. Pt states he is working on getting established with wound care through his PCP.
[2021-10-22] MEDS: CLINDAMYCIN 900 MG/50 ML PIGGYBACK 50 MG IV (20:09)
[2021-10-22 21:07] VITALS: BP 93/52; PULSE 71; RESP 18; O2SAT 99
--- NOTE | 2021-10-22 21:12 | PC.NURSE ---
Transport called for patient return to home, ETA 0120. Food and water offered to pt, call light in reach, heels offloaded of stretcher.
[2021-10-22 22:17] VITALS: BP 95/68; PULSE 56; RESP 16; O2SAT 99
[2021-10-23 00:03] VITALS: BP 114/72; PULSE 63; RESP 18; O2SAT 98
== END 2021-10-23 00:05 | disposition home or self-care (01) ==
PROVIDERS: Emergency Provider Emergency Medicine; PCP Student in an Organized Health Care Education/Training Program
DX: L89.619 Pressure ulcer of right heel, unspecified stage (principal); S91.109A Unspecified open wound of unspecified toe(s) without damage to nail, initial encounter; Z79.01 Long term (current) use of anticoagulants
CPT/HCPCS: 36415; 73620; 80053; 83605; 84145; 85025; 85651; 86140; 87040; 87070; 87205; 96365; 99284

== ENCOUNTER → 2021-11-01 12:52 | Outpatient (CLI) | payer MEDICARE, SELFPAY | PROVIDERS: PCP Student in an Organized Health Care Education/Training Program; Referring Provider Emergency Medicine; Visit Provider Family Medicine | DX: L89.613 Pressure ulcer of right heel, stage 3 (principal); L89.893 Pressure ulcer of other site, stage 3; G72.81 Critical illness myopathy; G90.09 Other idiopathic peripheral autonomic neuropathy; R53.1 Weakness; Z79.01 Long term (current) use of anticoagulants | CPT/HCPCS: 11042; 97597; 99204; 99213 ==

== ENCOUNTER → 2021-11-08 12:59 | Outpatient (CLI) | payer MEDICARE, SELFPAY | PROVIDERS: Family Provider Student in an Organized Health Care Education/Training Program; PCP Student in an Organized Health Care Education/Training Program; Referring Provider Student in an Organized Health Care Education/Training Program; Visit Provider Family Medicine | DX: L89.613 Pressure ulcer of right heel, stage 3 (principal); G72.81 Critical illness myopathy; G90.09 Other idiopathic peripheral autonomic neuropathy; R53.1 Weakness; Z79.01 Long term (current) use of anticoagulants; L08.9 Local infection of the skin and subcutaneous tissue, unspecified | CPT/HCPCS: 11042; 87070; 87075; 87077; 87186; 87205; 97597; 99213 ==

== ENCOUNTER → 2021-11-15 15:25 | Outpatient (CLI) | payer MEDICARE, SELFPAY | PROVIDERS: Family Provider Student in an Organized Health Care Education/Training Program; PCP Student in an Organized Health Care Education/Training Program; Referring Provider Student in an Organized Health Care Education/Training Program; Visit Provider Family Medicine | DX: L89.893 Pressure ulcer of other site, stage 3 (principal); L89.613 Pressure ulcer of right heel, stage 3; G72.81 Critical illness myopathy; G90.09 Other idiopathic peripheral autonomic neuropathy; R53.1 Weakness; B95.7 Other staphylococcus as the cause of diseases classified elsewhere; Z79.01 Long term (current) use of anticoagulants; L08.9 Local infection of the skin and subcutaneous tissue, unspecified; E66.01 Morbid (severe) obesity due to excess calories; Z68.41 Body mass index [BMI] 40.0-44.9, adult | CPT/HCPCS: 11042; 99214 ==

== ENCOUNTER → 2021-11-22 14:02 | Outpatient (CLI) | payer MEDICARE, SELFPAY | PROVIDERS: Family Provider Student in an Organized Health Care Education/Training Program; PCP Student in an Organized Health Care Education/Training Program; Referring Provider Student in an Organized Health Care Education/Training Program; Visit Provider Family Medicine | DX: L89.894 Pressure ulcer of other site, stage 4 (principal); L08.9 Local infection of the skin and subcutaneous tissue, unspecified; G72.81 Critical illness myopathy; G90.09 Other idiopathic peripheral autonomic neuropathy; R53.1 Weakness; Z79.01 Long term (current) use of anticoagulants | CPT/HCPCS: 73630; 87070; 87075; 87205; 97597; 99214 ==

== ENCOUNTER → 2021-11-22 15:22 | Outpatient (CLI) | payer MEDICARE, SELFPAY ==
--- NOTE | 2021-11-22 15:24 | DI.RAD.S_ITS ---
PROCEDURE: XR FOOT RT MIN 3V INDICATIONS: evaluate 1st IPJ for osteomyelitis TECHNIQUE: 3 views of the foot were acquired. COMPARISON: [facility], CR, XR FOOT RT 2V, 10/22/2021, 19:06. FINDINGS: Bones: The 1st IP joint is well visualized on the lateral view and appears intact without cortical erosions. However, there are questionable bony lucencies at the distal aspect of the 1st metatarsal. No other suspicious bony lesions. No acute fracture or dislocation. Soft tissues: No tibiotalar joint effusion. Achilles tendon appears normal. IMPRESSION: 1. No definite findings to suggest osteomyelitis at the 1st IP joint. 2. Questionable bony erosions of the distal 1st metatarsal. If further characterization is warranted, MRI of the foot with and without contrast could be used. Dictated by: Merissa Carbajal M.D. on 11/22/2021 at 16:49 Approved by: Merissa Carbajal M.D. on 11/22/2021 at 16:50
--- NOTE | 2021-11-22 15:24 | DI.RAD.S_ITS ---
PROCEDURE: XR FOOT LT MIN 3V INDICATIONS: evaluate 1st IPJ for osteomyelitis TECHNIQUE: 3 views of the foot were acquired. COMPARISON: [facility], CR, XR FOOT RT 2V, 10/22/2021, 19:06. FINDINGS: Bones: No fractures or dislocations. No suspicious bony lesions. Soft tissues: No tibiotalar joint effusion. Achilles tendon appears normal. IMPRESSION: No bony erosions to suggest acute osteomyelitis. Although no bony erosions are identified, plain film radiography is relatively insensitive in the acute phases of osteomyelitis and may not demonstrate radiographic changes for 15 days. If acute osteomyelitis is of clinical concern, nuclear medicine regional bone scan or MRI is recommended. Dictated by: Merissa Carbajal M.D. on 11/22/2021 at 16:50 Approved by: Merissa Carbajal M.D. on 11/22/2021 at 16:51
== END ==
PROVIDERS: Family Provider Student in an Organized Health Care Education/Training Program; PCP Student in an Organized Health Care Education/Training Program; Referring Provider Family Medicine; Visit Provider Family Medicine
DX: L89.893 Pressure ulcer of other site, stage 3 (principal)
CPT/HCPCS: 73630

== ENCOUNTER → 2021-11-30 10:51 | Outpatient (CLI) | payer MEDICARE, SELFPAY ==
[2021-11-30 11:29] LABS: Appearance Urine UA CLEAR; Bilirubin Urine UA NEGATIVE (NEGATIVE); Color Urine UA YELLOW; Glucose Urine UA NEGATIVE (Negative); Ketones Urine UA NEGATIVE (NEGATIVE); Leukocyte Esterase Urine UA NEGATIVE (NEGATIVE); Nitrite Urine UA NEGATIVE (Negative); Occult Blood Urine UA TRACE-INTACT (Negative); Protein Urine UA NEGATIVE (Negative); Specific Gravity Urine UA 1.015 (1.000-1.035); Urobilinogen Urine UA 0.2 E.U./dL (0.2); pH Urine UA 6.5 (4.5-8.0)
[2021-11-30 11:44] LABS: Bacteria Urine None Seen; Culture Indicated Urine Cult Not Indicated; Hyaline Casts Urine 1-5/LPF; RBC Urine 1-5/HPF (0-5/HPF); Squamous Epithelial Cell Urine None Seen (0-5/HPF); WBC Urine None Seen (0-5/HPF)
[2021-11-30 17:03] LABS: BUN Creatinine Ratio 23.1 (6-22); Blood Urea Nitrogen 36 mg/dL (9-20); Calcium 9.5 mg/dL (8.4-10.2); Carbon Dioxide 33 mmol/L (22-32); Chloride 104 mmol/L (98-107); Estimated Glomerular Filt Rate 47 mL/min (>60); Glucose 90 mg/dL (80-110); HEMOLYSIS < 15 (0-50); Potassium 4.3 mmol/L (3.4-5.1); Sodium 142 mmol/L (137-145)
== END ==
PROVIDERS: Family Provider Student in an Organized Health Care Education/Training Program; PCP Student in an Organized Health Care Education/Training Program; Referring Provider Student in an Organized Health Care Education/Training Program; Visit Provider Student in an Organized Health Care Education/Training Program
DX: N17.9 Acute kidney failure, unspecified (principal)
CPT/HCPCS: 36415; 80048; 81001

== ENCOUNTER → 2021-12-07 13:56 | Outpatient (CLI) | payer MEDICARE, SELFPAY | PROVIDERS: Family Provider Student in an Organized Health Care Education/Training Program; PCP Student in an Organized Health Care Education/Training Program; Referring Provider Student in an Organized Health Care Education/Training Program; Visit Provider Family Medicine | DX: L89.894 Pressure ulcer of other site, stage 4 (principal); G72.81 Critical illness myopathy; G90.09 Other idiopathic peripheral autonomic neuropathy; R53.1 Weakness; Z79.01 Long term (current) use of anticoagulants | CPT/HCPCS: 87070; 87075; 87077; 87205; 97597; 99213 ==

== ENCOUNTER → 2021-12-14 12:00 | Outpatient (CLI) | payer MEDICARE, SELFPAY | PROVIDERS: Family Provider Student in an Organized Health Care Education/Training Program; PCP Student in an Organized Health Care Education/Training Program; Referring Provider Student in an Organized Health Care Education/Training Program; Visit Provider Family Medicine | DX: L89.894 Pressure ulcer of other site, stage 4 (principal); G90.09 Other idiopathic peripheral autonomic neuropathy; G72.81 Critical illness myopathy; R53.1 Weakness; Z79.01 Long term (current) use of anticoagulants | CPT/HCPCS: 97597; 99212; 99213 ==

== ENCOUNTER → 2021-12-21 14:37 | Outpatient (CLI) | payer MEDICARE, SELFPAY | PROVIDERS: Family Provider Student in an Organized Health Care Education/Training Program; PCP Student in an Organized Health Care Education/Training Program; Referring Provider Student in an Organized Health Care Education/Training Program; Visit Provider Family Medicine | DX: L89.894 Pressure ulcer of other site, stage 4 (principal); G72.81 Critical illness myopathy; G90.09 Other idiopathic peripheral autonomic neuropathy; R53.1 Weakness; Z79.01 Long term (current) use of anticoagulants; E66.01 Morbid (severe) obesity due to excess calories; Z68.41 Body mass index [BMI] 40.0-44.9, adult | CPT/HCPCS: 97597 ==

== ENCOUNTER → 2022-01-04 13:49 | Outpatient (CLI) | payer MEDICARE, SELFPAY | PROVIDERS: Family Provider Student in an Organized Health Care Education/Training Program; PCP Student in an Organized Health Care Education/Training Program; Referring Provider Student in an Organized Health Care Education/Training Program; Visit Provider Family Medicine | DX: L89.894 Pressure ulcer of other site, stage 4 (principal); G90.09 Other idiopathic peripheral autonomic neuropathy; G72.81 Critical illness myopathy; R53.1 Weakness; Z79.01 Long term (current) use of anticoagulants | CPT/HCPCS: 99212 ==

== ENCOUNTER → 2022-01-18 14:28 | Outpatient (CLI) | payer MEDICARE, SELFPAY | PROVIDERS: Family Provider Student in an Organized Health Care Education/Training Program; PCP Student in an Organized Health Care Education/Training Program; Referring Provider Student in an Organized Health Care Education/Training Program; Visit Provider Family Medicine | DX: L89.894 Pressure ulcer of other site, stage 4 (principal); G72.81 Critical illness myopathy; G90.09 Other idiopathic peripheral autonomic neuropathy; R53.1 Weakness; Z79.01 Long term (current) use of anticoagulants; Z68.41 Body mass index [BMI] 40.0-44.9, adult | CPT/HCPCS: 99212; 99214 ==

== ENCOUNTER 2022-02-16 18:09 | Inpatient (IN) | payer MEDICARE, SELFPAY ==
[2022-02-16] VITALS (13 sets, daily range): BP systolic 115–152; BP diastolic 69–87; PULSE 65–100; RESP 16–38; TEMP 36.7–37; O2SAT 93–96; BMI 40.0
--- NOTE | 2022-02-16 18:17 | DI.RAD.S_ITS ---
PROCEDURE: XR CHEST 1V INDICATIONS: dyspnea TECHNIQUE: One view of the chest was acquired. COMPARISON: [facility], CR, XR CHEST 2V, 11/27/2019, 15:41. FINDINGS: Surgical changes and devices: None. Lungs and pleura: Mild diffuse interstitial prominence. Patchy airspace opacity of the right mid lung zone and left lung base. No pneumothorax. Suspected small left pleural effusion. Mediastinum: Mediastinal contours appear normal. Heart size is mildly enlarged. Bones and chest wall: No suspicious bony lesions. Overlying soft tissues appear unremarkable. IMPRESSION: Patchy airspace opacities of the right mid lung zone and left lung base which may represent developing airspace disease/pneumonia. Asymmetric pulmonary edema may have a similar appearance given mild cardiomegaly. Suspected small left pleural effusion. Recommend follow up chest radiograph 4-6 weeks after treatment to document resolution of findings and/or return to baseline examination. Dictated by: Matt Izaguirre M.D. on 02/16/2022 at 19:01 Approved by: Matt Izaguirre M.D. on 02/16/2022 at 19:02
--- NOTE | 2022-02-16 18:19 | ED.URI ---
HPI - URI/Sore Throat General Chief Complaint: Shortness of Breath/Dyspnea Stated Complaint: SOB Time Seen by Provider: 02/16/22 18:17 History of Present Illness HPI Narrative: Patient brought in by EMS from home. Complains of productive cough and dyspnea has had chills. History of pneumonia in the past. Is on CPAP for sleep apnea at night otherwise is not on any oxygen at home. Does have history of congestive heart failure. Denies any chest pain. EMS arrives with patient on 4 L nasal cannula. Did have DuoNeb treatment prior to arrival. Patient denies any chest pain. Denies any swelling more than usual for his congestive heart failure. He sees Dr. Carrasco for Cardiology. He sees Dr. Chester for primary care. Related Data Home Medications Medication Instructions Recorded Confirmed fluticasone propionate 50 1 spray intranasal BID 10/14/21 02/16/22 mcg/actuation nasal spray,suspension (Flonase Allergy Relief) amiodarone 200 mg tablet 200 mg PO DAILY 02/16/22 02/16/22 Previous Rx's Medication Instructions Recorded apixaban 5 mg tablet (Eliquis) 5 mg PO BID #180 tabs 10/14/21 carvedilol 6.25 mg tablet 6.25 mg PO BID #180 tabs 10/14/21 gabapentin 300 mg capsule 300 mg PO QD-BID #180 caps 10/14/21 omeprazole 20 mg capsule,delayed 20 mg PO DAILY #90 caps 10/14/21 release furosemide 20 mg tablet 20 mg PO BID #180 tabs 01/28/22 terazosin 10 mg capsule 10 mg PO BEDTIME #90 caps 01/28/22 Allergies Allergy/AdvReac Type Severity Reaction Status Date / Time latex [LATEX] Allergy Intermediate Verified 02/16/22 18:26 CAT/DOG DANDER Allergy Intermediate WATERY,ITCHY Uncoded 01/04/22 15:23 EYES,COUGHING/SNEEZING FITS DUST MITES Allergy Intermediate WATERY/ITCHY Uncoded 01/04/22 15:23 EYES,COUGH,SNEEZING MULTIPLE FOOD ALLERGIES Allergy Intermediate STOMACH Uncoded 01/04/22 15:23 CRAMPS,DIARRHEA GRASS,T Allergy Unknown WATERY Uncoded 01/04/22 15:23 EYES,COUGHING/SNEEZING Review of Systems Review of Systems Narrative: GENERAL: Positive for chills, fatigue, malaise, fever, sweats. HEENT: Denies sinus pain, ear pain, sore throat RESPIRATORY: positive dyspnea, cough CARDIOVASCULAR: Denies chest pain, palpitations GASTROINTESTINAL: Denies nausea, vomiting, abdominal pain : Denies dysuria, frequency, hematuria MUSCULOSKELETAL: denies muscle or bony pain SKIN: Denies rash, skin lesions NEUROLOGIC: Denies weakness, numbness ROS Unobtainable: All systems reviewed & are unremarkable except as noted in HPI and below Patient History Medical History Atrial fibrillation (~2014) Chicken pox (~1959) Chronic back pain (~2009) Deep vein thrombosis (~1989) Foot pain (~1989) Fractures (~1989) Hearing loss Irritable bowel syndrome (~2014) Low testosterone (~1989) Measles (~1959) Pneumonia Sleep apnea (~1989) Vision disorder Surgical History Anesthesia [place] filter in place (~1992) History of back surgery History of surgery (~2015) History of tonsillectomy Social History household members: spouse Smoking Status: Never smoker alcohol intake: current Smoking Status: Never smoker alcohol intake frequency: 3 or more drinks per day Substance Use Type: does not use Exam Narrative Exam Narrative: GENERAL: in no distress, not toxic not dyspneic HEAD: Normocephalic. EYES: Pupils equal round No scleral icterus. ENT: Mucous membranes moist. NECK: Trachea midline. CARDIOVASCULAR: Regular rate and rhythm without murmurs RESPIRATORY: Clear to auscultation. Breath sounds equal bilaterally. Bibasilar mild wheezes, as well as rales, and rhonchi. GASTROINTESTINAL: Abdomen soft, non-tender EXTREMITIES: No gross deformities. BACK: No flank tenderness. NEURO: AOx4. SKIN: Warm and dry PSYCH: Not anxious, is cooperative Initial Vital Signs Initial Vital Signs: Vital Signs Pulse Rate 81 02/16/22 18:14 Pulse Oximetry 95 02/16/22 18:14 Course Orders Ordered: ED Orders 02/16/22 18:17 XR chest 1V Stat 02/16/22 18:18 Sputum Culture Stat 02/16/22 18:26 Complete Blood Count AUTO DIFF Stat Comprehensive Metabolic Panel Stat Lactate (Lactic Acid) Stat NT-proBNP (BNP-Adult 18+) Stat Procalcitonin Stat Prothrombin Time INR Stat Troponin & CK Cardiac Panel Stat 02/16/22 18:27 EKG-12 Lead Stat 02/16/22 18:40 Blood Culture Stat Respiratory Panel (Film Array) Stat Acetaminophen (Acetaminophen 325 Mg Tablet) 650 mg PO Q6H PRN PRN Reason: Fever/Mild Pain (1-3) Last Admin: 02/16/22 23:28 Dose: 650 mg Documented By: Apixaban (Apixaban 5 Mg Tablet) 5 mg PO BID [facility] Last Admin: 02/16/22 22:31 Dose: 5 mg Documented By: MS Ceftriaxone Sodium 1,000 mg/ (Sodium Chloride) 100 mls @ 200 mls/hr IV Q24H [facility] Last Admin: 02/16/22 22:32 Dose: 200 mls/hr Documented By: Azithromycin 500 mg/ Dextrose 250 mls @ 250 mls/hr IV Q24H [facility] Last Admin: 02/16/22 23:26 Dose: 250 mls/hr Documented By: Ondansetron HCl (Ondansetron 4 Mg/2 Ml Inj) 4 mg IV Q8HR PRN PRN Reason: Nausea And Vomiting Discontinued Medications Acetaminophen (Acetaminophen 325 Mg Tablet) 975 mg PO NOW ONE Stop: 02/16/22 19:58 Last Admin: 02/16/22 20:03 Dose: 975 mg Documented By: DANAY Albuterol/Ipratropium (Albuterol/Ipratropium 3 Ml Ampul) 3 ml INH NOW ONE Stop: 02/16/22 18:40 Last Admin: 02/16/22 19:28 Dose: 3 ml Documented By: GAUDENCIO Ceftriaxone Sodium 2,000 mg/ (Sodium Chloride) 100 mls @ 200 mls/hr IV NOW ONE Stop: 02/16/22 19:40 Last Infusion: 02/16/22 20:41 Dose: 0 mls/hr Documented By: Admin: 02/16/22 19:53 Dose: 200 mls/hr Documented By: DANAY Doxycycline Hyclate 100 mg/ (Sodium Chloride) 100 mls @ 100 mls/hr IV NOW ONE Stop: 02/16/22 19:40 Vital Signs Vital signs: Vital Signs - 8 hr 02/16/22 18:20 02/16/22 19:28 02/16/22 18:30 Temperature 98.6 F Pulse Rate 65 94 H 96 H Respiratory Rate 16 20 38 H Blood Pressure 115/87 Pulse Oximetry 96 94 95 Oxygen Delivery Method Nasal Cannula Nasal Cannula Oxygen Flow Rate 4 4 02/16/22 19:00 02/16/22 19:00 02/16/22 19:30 Temperature Pulse Rate 94 H 95 H Respiratory Rate 32 H 23 Blood Pressure 142/83 H Pulse Oximetry 94 96 Oxygen Delivery Method Oxygen Flow Rate 02/16/22 19:31 02/16/22 19:31 Temperature Pulse Rate 91 H Respiratory Rate 22 Blood Pressure 152/69 H Pulse Oximetry 95 Oxygen Delivery Method Oxygen Flow Rate MDM - URI/Sore Throat Differential Diagnosis Differential diagnosis: Likely upper respiratory infection, bronchitis and other (Pneumonia/CHF) Lab Data Result diagrams: 02/16/22 18:26 02/16/22 18:26 Labs: Lab Results 02/16/22 02/16/22 02/16/22 Range/Units 18:26 18:26 18:26 WBC 5.8 (4.5-11.0) X10^3/uL RBC 3.42 L (4.5-5.9) X10^6/uL Hgb 11.6 L (13.5-17.5) g/dL Hct 33.8 L (41-53) % MCV 99.1 (80-100) fL MCH 34.0 (26-34) PG MCHC 34.3 (30-36) % RDW 14.3 (11.6-14.8) % Plt Count 182 (150-400) X10^3/uL Neut % (Auto) 76.7 H (50-75) % Lymph % (Auto) 12.6 L (25-40) % [place] % (Auto) 8.5 (3-14) % Eos % (Auto) 1.8 L (2-4) % Baso % (Auto) 0.4 (0-2) % Neut # (Auto) 4500 (7070-1786) /uL Lymph # (Auto) 700 L (9808-9152) /uL [place] # (Auto) 500 (0-900) /uL Eos # (Auto) 100 (0-450) /uL Baso # (Auto) 0 (0-100) /uL PT 16.0 H (10.1-12.7) SECONDS INR 1.4 H (0.9-1.3) D-Dimer (<500) ng/ml Sodium 144 (137-145) mmol/L Potassium 3.9 (3.4-5.1) mmol/L Chloride 107 (98-107) mmol/L Carbon Dioxide 30 (22-32) mmol/L BUN 43 H (9-20) mg/dL Creatinine 1.47 H (0.66-1.25) mg/dL Estimated GFR 50 L (>60) mL/min BUN/Creatinine Ratio 29.3 H (6-22) Glucose 102 (80-110) mg/dL Lactate (0.7-2.1) mmol/L Calcium 9.3 (8.4-10.2) mg/dL Total Bilirubin 0.7 (0.2-1.3) mg/dL AST 30 (17-59) IU/L ALT 19 (<50) IU/L Alkaline Phosphatase 89 (38-126) U/L Total Creatine Kinase 72 (55-170) U/L CK-MB (CK-2) TNP CK-MB (CK-2) Rel Index TNP Troponin I 0.050 H (0.01-0.034) ng/mL NT-Pro-B Natriuret Pep (<125) pg/mL Total Protein 7.5 (6.3-8.2) g/dL Albumin 4.1 (3.5-5.0) g/dL Globulin 3.4 (1.7-4.1) g/dL Albumin/Globulin Ratio 1.2 (1.0-2.8) Procalcitonin 0.16 (<0.5) ng/mL Chlamy pneumoniae PCR (Not Detect) Adenovirus (PCR) (Not Detect) B. pertussis DNA (PCR) (Not Detecte) B.parapertussis DNA PCR (Not Detecte) Coronavirus OC43 (PCR) (Not Detect) Coronavirus HKU1 (PCR) (Not Detect) Coronavirus 229E (PCR) (Not Detect) SARS-CoV-2 (PCR) (Not Detecte) Coronavirus NL63 (PCR) (Not Detect) Human Metapneumovir PCR (Not Detect) Influenza Type A (PCR) (Not Detect) Influenza Type B (PCR) (Not Detect) M. pneumoniae (PCR) (Not Detect) Parainfluenza 1 (PCR) (Not Detect) Parainfluenza 2 (PCR) (Not Detect) Parainfluenza 3 (PCR) (Not Detect) Parainfluenza 4 (PCR) (Not Detect) RSV (PCR) (Not Detect) Entero/Rhino (PCR) (Not Detect) 02/16/22 02/16/22 02/16/22 Range/Units 18:26 18:26 18:26 WBC (4.5-11.0) X10^3/uL RBC (4.5-5.9) X10^6/uL Hgb (13.5-17.5) g/dL Hct (41-53) % MCV (80-100) fL MCH (26-34) PG MCHC (30-36) % RDW (11.6-14.8) % Plt Count (150-400) X10^3/uL Neut % (Auto) (50-75) % Lymph % (Auto) (25-40) % [place] % (Auto) (3-14) % Eos % (Auto) (2-4) % Baso % (Auto) (0-2) % Neut # (Auto) (4488-4467) /uL Lymph # (Auto) (2324-8384) /uL [place] # (Auto) (0-900) /uL Eos # (Auto) (0-450) /uL Baso # (Auto) (0-100) /uL PT (10.1-12.7) SECONDS INR (0.9-1.3) D-Dimer 1740 H (<500) ng/ml Sodium (137-145) mmol/L Potassium (3.4-5.1) mmol/L Chloride (98-107) mmol/L Carbon Dioxide (22-32) mmol/L BUN (9-20) mg/dL Creatinine (0.66-1.25) mg/dL Estimated GFR (>60) mL/min BUN/Creatinine Ratio (6-22) Glucose (80-110) mg/dL Lactate 1.0 (0.7-2.1) mmol/L Calcium (8.4-10.2) mg/dL Total Bilirubin (0.2-1.3) mg/dL AST (17-59) IU/L ALT (<50) IU/L Alkaline Phosphatase (38-126) U/L Total Creatine Kinase (55-170) U/L CK-MB (CK-2) CK-MB (CK-2) Rel Index Troponin I (0.01-0.034) ng/mL NT-Pro-B Natriuret Pep 2130 H (<125) pg/mL Total Protein (6.3-8.2) g/dL Albumin (3.5-5.0) g/dL Globulin (1.7-4.1) g/dL Albumin/Globulin Ratio (1.0-2.8) Procalcitonin (<0.5) ng/mL Chlamy pneumoniae PCR (Not Detect) Adenovirus (PCR) (Not Detect) B. pertussis DNA (PCR) (Not Detecte) B.parapertussis DNA PCR (Not Detecte) Coronavirus OC43 (PCR) (Not Detect) Coronavirus HKU1 (PCR) (Not Detect) Coronavirus 229E (PCR) (Not Detect) SARS-CoV-2 (PCR) (Not Detecte) Coronavirus NL63 (PCR) (Not Detect) Human Metapneumovir PCR (Not Detect) Influenza Type A (PCR) (Not Detect) Influenza Type B (PCR) (Not Detect) M. pneumoniae (PCR) (Not Detect) Parainfluenza 1 (PCR) (Not Detect) Parainfluenza 2 (PCR) (Not Detect) Parainfluenza 3 (PCR) (Not Detect) Parainfluenza 4 (PCR) (Not Detect) RSV (PCR) (Not Detect) Entero/Rhino (PCR) (Not Detect) 02/16/22 Range/Units 18:40 WBC (4.5-11.0) X10^3/uL RBC (4.5-5.9) X10^6/uL Hgb (13.5-17.5) g/dL Hct (41-53) % MCV (80-100) fL MCH (26-34) PG MCHC (30-36) % RDW (11.6-14.8) % Plt Count (150-400) X10^3/uL Neut % (Auto) (50-75) % Lymph % (Auto) (25-40) % [place] % (Auto) (3-14) % Eos % (Auto) (2-4) % Baso % (Auto) (0-2) % Neut # (Auto) (8584-2578) /uL Lymph # (Auto) (0051-5300) /uL [place] # (Auto) (0-900) /uL Eos # (Auto) (0-450) /uL Baso # (Auto) (0-100) /uL PT (10.1-12.7) SECONDS INR (0.9-1.3) D-Dimer (<500) ng/ml Sodium (137-145) mmol/L Potassium (3.4-5.1) mmol/L Chloride (98-107) mmol/L Carbon Dioxide (22-32) mmol/L BUN (9-20) mg/dL Creatinine (0.66-1.25) mg/dL Estimated GFR (>60) mL/min BUN/Creatinine Ratio (6-22) Glucose (80-110) mg/dL Lactate (0.7-2.1) mmol/L Calcium (8.4-10.2) mg/dL Total Bilirubin (0.2-1.3) mg/dL AST (17-59) IU/L ALT (<50) IU/L Alkaline Phosphatase (38-126) U/L Total Creatine Kinase (55-170) U/L CK-MB (CK-2) CK-MB (CK-2) Rel Index Troponin I (0.01-0.034) ng/mL NT-Pro-B Natriuret Pep (<125) pg/mL Total Protein (6.3-8.2) g/dL Albumin (3.5-5.0) g/dL Globulin (1.7-4.1) g/dL Albumin/Globulin Ratio (1.0-2.8) Procalcitonin (<0.5) ng/mL Chlamy pneumoniae PCR Not detected (Not Detect) Adenovirus (PCR) Not detected (Not Detect) B. pertussis DNA (PCR) Not detected (Not Detecte) B.parapertussis DNA PCR Not detected (Not Detecte) Coronavirus OC43 (PCR) Not detected (Not Detect) Coronavirus HKU1 (PCR) Not detected (Not Detect) Coronavirus 229E (PCR) Not detected (Not Detect) SARS-CoV-2 (PCR) Not detected (Not Detecte) Coronavirus NL63 (PCR) Not detected (Not Detect) Human Metapneumovir PCR Not detected (Not Detect) Influenza Type A (PCR) Not detected (Not Detect) Influenza Type B (PCR) Not detected (Not Detect) M. pneumoniae (PCR) Not detected (Not Detect) Parainfluenza 1 (PCR) Not detected (Not Detect) Parainfluenza 2 (PCR) Not detected (Not Detect) Parainfluenza 3 (PCR) Not detected (Not Detect) Parainfluenza 4 (PCR) Not detected (Not Detect) RSV (PCR) Not detected (Not Detect) Entero/Rhino (PCR) Not detected (Not Detect) ECG Data Interpretation: Atrial fibrillation rate [address] elevation or depression MDM Narrative Medical decision making narrative: Appropriate for admission. Patient requiring supplemental oxygen. Antibiotics have been started. Patient agrees for admit. Hospitalist agrees for admit as well. Discharge Plan Departure Patient Disposition: Admitted As Inpatient Clinical Impression: Community acquired pneumonia Admit Date/Time: 02/16/22 19:55 Admit Provider: Claude Mason
[2022-02-16 18:34] LABS: Add Manual Diff / Slide Review NO; Basophils Absolute Auto 0 /uL (0-100); Basophils Percent Auto 0.4 % (0-2); Eosinophils Absolute Auto 100 /uL (0-450); Eosinophils Percent Auto 1.8 % (2-4); Hematocrit 33.8 % (41-53); Hemoglobin 11.6 g/dL (13.5-17.5); Lymphocytes Absolute Auto 700 /uL (1100-4500); Lymphocytes Percent Auto 12.6 % (25-40); Mean Corpuscular HGB Conc 34.3 % (30-36); Mean Corpuscular Volume 99.1 fL (80-100); Monocytes Absolute Auto 500 /uL (0-900); Monocytes Percent Auto 8.5 % (3-14); Neutrophils Absolute Auto 4500 /uL (1500-7000); Neutrophils Percent Auto 76.7 % (50-75); Platelet Count 182 X10^3/uL (150-400); Red Blood Cell Count 3.42 X10^6/uL (4.5-5.9); Red Cell Distribution Width 14.3 % (11.6-14.8); White Blood Cell Count 5.8 X10^3/uL (4.5-11.0)
[2022-02-16 18:38] LABS: INR 1.4 (0.9-1.3)
[2022-02-16 18:44] LABS: Alanine Aminotransferase 19 IU/L (<50); Albumin 4.1 g/dL (3.5-5.0); Albumin Globulin Ratio 1.2 (1.0-2.8); Alkaline Phosphatase 89 U/L (38-126); Aspartate Aminotransferase 30 IU/L (17-59); BUN Creatinine Ratio 29.3 (6-22); Bilirubin Total 0.7 mg/dL (0.2-1.3); Blood Urea Nitrogen 43 mg/dL (9-20); Calcium 9.3 mg/dL (8.4-10.2); Carbon Dioxide 30 mmol/L (22-32); Chloride 107 mmol/L (98-107); Creatine Kinase 72 U/L (55-170); Estimated Glomerular Filt Rate 50 mL/min (>60); Globulin 3.4 g/dL (1.7-4.1); Glucose 102 mg/dL (80-110); HEMOLYSIS < 15 (0-50); Potassium 3.9 mmol/L (3.4-5.1); Sodium 144 mmol/L (137-145); Total Protein 7.5 g/dL (6.3-8.2)
[2022-02-16 18:53] LABS: NT-proBNP (BNP-Adult 18+) 2130 pg/mL (<125)
[2022-02-16 19:00] LABS: Procalcitonin 0.16 ng/mL (<0.5)
[2022-02-16] MEDS: ALBUTEROL/IPRATROPIUM 3 ML AMPUL INH (19:28)
[2022-02-16] MEDS: cefTRIAXone 2,000 MG in SODIUM CHLORIDE 0.9% 100 ML 200 MG IV (19:53)
[2022-02-16] MEDS: ACETAMINOPHEN 325 MG TABLET 975 MG PO (20:03)
[2022-02-16 20:24] LABS: Adenovirus Not Detected (Not Detect); B. parapertussis Not Detected (Not Detecte); Bordetella pertussis Not Detected (Not Detecte); Chlamydophila pneumoniae Not Detected (Not Detect); Coronavirus 229E Not Detected (Not Detect); Coronavirus HKU1 Not Detected (Not Detect); Coronavirus NL 63 Not Detected (Not Detect); Coronavirus OC43 Not Detected (Not Detect); Human Metapneumovirus Not Detected (Not Detect); Human Rhinovirus/Enterovirus Not Detected (Not Detect); Influenza A Not Detected (Not Detect); Influenza B Not Detected (Not Detect); Mycoplasma pneumoniae Not Detected (Not Detect); Parainfluenza Virus 1 Not Detected (Not Detect); Parainfluenza Virus 2 Not Detected (Not Detect); Parainfluenza Virus 3 Not Detected (Not Detect); Parainfluenza Virus 4 Not Detected (Not Detect); Respiratory Syncytial Virus Not Detected (Not Detect); SARS- CoV-2 Not Detected (Not Detecte)
--- NOTE | 2022-02-16 20:37 | P.HP_ITS ---
History of Present Illness History of Present Illness Date Patient Seen: 02/16/22 Time Patient Seen: 21:30 Chief complaint: SOB Narrative: Mr. Duarte is a 71M with PMH afib, DVT, CAROL, CHF who presents to the hospital with cough and shortness of breath. He has a productive cough with green sputum and streaks of blood. He has also noted no fevers/chills. No chest pain. He has noted some slight increase in lower extremity edema. He called EMS who administered a duoneb and placed him on 4L oxygen. He has no sick contacts at home. In the ED workup was done, vitals notable for tachycardia and tachypnea. He continued on oxygen. Labs notable for WBC 5.8, hgb 11.6. Creatinine 1.47. Trop 0.05, BNP 2130. Procal 0.16. Respiratory pcr panel negative. Chest xray showed bilateral patchy airspace opacities. He was ordered for antibiotics and admitted for further treatment. Patient History Medical History Atrial fibrillation (~2014) Chicken pox (~1959) Chronic back pain (~2009) Deep vein thrombosis (~1989) Foot pain (~1989) Fractures (~1989) Hearing loss Irritable bowel syndrome (~2014) Low testosterone (~1989) Measles (~1959) Pneumonia Sleep apnea (~1989) Vision disorder Surgical History Anesthesia [employer] filter in place (~1992) History of back surgery History of surgery (~2015) History of tonsillectomy Family & Social History Safety & Behavioral: Feels Safe in Current Yes Environment Been Physically Hurt or No Threatened By a Person Tobacco & Substance use: Smoking Status Never smoker alcohol intake frequency 3 or more drinks per day Substance Use Type does not use Meds Home Medications and Allergies Home Medications Medication Instructions Recorded Confirmed Type apixaban 5 mg tablet (Eliquis) 5 mg PO BID #180 tabs 10/14/21 02/16/22 Rx carvedilol 6.25 mg tablet 6.25 mg PO BID #180 tabs 10/14/21 02/16/22 Rx fluticasone propionate 50 1 spray intranasal BID 10/14/21 02/16/22 History mcg/actuation nasal spray,suspension (Flonase Allergy Relief) gabapentin 300 mg capsule 300 mg PO QD-BID #180 caps 10/14/21 02/16/22 Rx omeprazole 20 mg capsule,delayed 20 mg PO DAILY #90 caps 10/14/21 02/16/22 Rx release furosemide 20 mg tablet 20 mg PO BID #180 tabs 01/28/22 02/16/22 Rx terazosin 10 mg capsule 10 mg PO BEDTIME #90 caps 01/28/22 02/16/22 Rx amiodarone 200 mg tablet 200 mg PO DAILY 02/16/22 02/16/22 History Allergies Allergy/AdvReac Type Severity Reaction Status Date / Time latex [LATEX] Allergy Intermediate Verified 02/16/22 18:26 CAT/DOG DANDER Allergy Intermediate WATERY,ITCHY Uncoded 01/04/22 15:23 EYES,COUGHING/SNEEZING FITS DUST MITES Allergy Intermediate WATERY/ITCHY Uncoded 01/04/22 15:23 EYES,COUGH,SNEEZING MULTIPLE FOOD ALLERGIES Allergy Intermediate STOMACH Uncoded 01/04/22 15:23 CRAMPS,DIARRHEA GRASS,T Allergy Unknown WATERY Uncoded 01/04/22 15:23 EYES,COUGHING/SNEEZING Review of Systems Review of Systems Narrative: 14 systems reviewed and negative aside from what is noted in HPI Exam Vital Signs (past 8 hours): - 02/16/22 18:20 02/16/22 19:28 Temperature 98.6 F Pulse Rate 65 94 H Respiratory Rate 16 20 Blood Pressure 115/87 Pulse Oximetry 96 94 Oxygen Delivery Method Nasal Cannula Nasal Cannula Oxygen Flow Rate 4 4 Oxygen Delivery Method Nasal Cannula Oxygen Flow Rate 4 Narrative Exam Narrative: GEN: in respiratory distress HEENT: moist mucous membranes, PERRL NECK: trachea midline, no JVD CV: irregular, no murmurs PULM: coarse breath sounds bilaterally with faint crackles ABD: soft, nontender, nondistended, no organomegaly EXT: warm and well perfused with no edema NEURO: awake, alert, oriented, no focal deficits Objective Labs Result Diagrams: 02/16/22 18:26 02/16/22 18:26 Labs: Laboratory Results - last 24 hr 02/16/22 02/16/22 02/16/22 18:26 18:26 18:26 WBC 5.8 RBC 3.42 L Hgb 11.6 L Hct 33.8 L MCV 99.1 MCH 34.0 MCHC 34.3 RDW 14.3 Plt Count 182 Neut % (Auto) 76.7 H Lymph % (Auto) 12.6 L [place] % (Auto) 8.5 Eos % (Auto) 1.8 L Baso % (Auto) 0.4 Neut # (Auto) 4500 Lymph # (Auto) 700 L [place] # (Auto) 500 Eos # (Auto) 100 Baso # (Auto) 0 PT 16.0 H INR 1.4 H Sodium 144 Potassium 3.9 Chloride 107 Carbon Dioxide 30 BUN 43 H Creatinine 1.47 H Estimated GFR 50 L BUN/Creatinine Ratio 29.3 H Glucose 102 Lactate Calcium 9.3 Total Bilirubin 0.7 AST 30 ALT 19 Alkaline Phosphatase 89 Total Creatine Kinase 72 CK-MB (CK-2) TNP CK-MB (CK-2) Rel Index TNP Troponin I 0.050 H NT-Pro-B Natriuret Pep Total Protein 7.5 Albumin 4.1 Globulin 3.4 Albumin/Globulin Ratio 1.2 Procalcitonin 0.16 Chlamy pneumoniae PCR Adenovirus (PCR) B. pertussis DNA (PCR) B.parapertussis DNA PCR Coronavirus OC43 (PCR) Coronavirus HKU1 (PCR) Coronavirus 229E (PCR) SARS-CoV-2 (PCR) Coronavirus NL63 (PCR) Human Metapneumovir PCR Influenza Type A (PCR) Influenza Type B (PCR) M. pneumoniae (PCR) Parainfluenza 1 (PCR) Parainfluenza 2 (PCR) Parainfluenza 3 (PCR) Parainfluenza 4 (PCR) RSV (PCR) Entero/Rhino (PCR) 02/16/22 02/16/22 02/16/22 18:26 18:26 18:40 WBC RBC Hgb Hct MCV MCH MCHC RDW Plt Count Neut % (Auto) Lymph % (Auto) [place] % (Auto) Eos % (Auto) Baso % (Auto) Neut # (Auto) Lymph # (Auto) [place] # (Auto) Eos # (Auto) Baso # (Auto) PT INR Sodium Potassium Chloride Carbon Dioxide BUN Creatinine Estimated GFR BUN/Creatinine Ratio Glucose Lactate 1.0 Calcium Total Bilirubin AST ALT Alkaline Phosphatase Total Creatine Kinase CK-MB (CK-2) CK-MB (CK-2) Rel Index Troponin I NT-Pro-B Natriuret Pep 2130 H Total Protein Albumin Globulin Albumin/Globulin Ratio Procalcitonin Chlamy pneumoniae PCR Not detected Adenovirus (PCR) Not detected B. pertussis DNA (PCR) Not detected B.parapertussis DNA PCR Not detected Coronavirus OC43 (PCR) Not detected Coronavirus HKU1 (PCR) Not detected Coronavirus 229E (PCR) Not detected SARS-CoV-2 (PCR) Not detected Coronavirus NL63 (PCR) Not detected Human Metapneumovir PCR Not detected Influenza Type A (PCR) Not detected Influenza Type B (PCR) Not detected M. pneumoniae (PCR) Not detected Parainfluenza 1 (PCR) Not detected Parainfluenza 2 (PCR) Not detected Parainfluenza 3 (PCR) Not detected Parainfluenza 4 (PCR) Not detected RSV (PCR) Not detected Entero/Rhino (PCR) Not detected Assessment & Plan Assessment & Plan narrative: 1. Acute hypoxemic respiratory failure secondary to probable pneumonia -patient with cough, chills, xray findings consistent with pneumonia with marguerite ateral patchy opacities -continue ceftriaxone and azithromycin -respratory panel PCR negative -BNP elevated, and troponin indeterminate -trend troponins -may have a component of fluid overload and will consider trialing IV lasix if not improving with antibiotics -check D-dimer which was elevated, patient already on anticoagulation -consider lung perfusion scan to rule out DVT, though this is lower on differential, and may be difficult to rule out with opacities on xray, may need CTA chest if not improved 2. Atrial fibrillation -hold coreg for now -continue apixaban 3. CAROL -continue CPAP 4. History of DVT -continue apixaban 5. CKD stage 2 -monitor creatinine, creatinine appears at baseline CODE: Full Proxy: Kennedi Duarte, spouse I have utilized all available resources to reconcile the patient's home medications Time Spent With Patient Critical Care time: I spent a total of [] minutes of critical care time on this patient's care today; this time is exclusive of procedural time.
[2022-02-16 21:01] LABS: D Dimer 1740 ng/ml (<500)
[2022-02-16] MEDS: APIXABAN 5 MG TABLET PO (22:31)
[2022-02-16] MEDS: cefTRIAXone 1,000 MG in SODIUM CHLORIDE 0.9% 100 ML 200 MG IV (22:32)
[2022-02-16] MEDS: AZITHROMYCIN 500 MG in DEXTROSE 5% IN WATER 250 ML 250 MG IV (23:26)
[2022-02-16] MEDS: ACETAMINOPHEN 325 MG TABLET 650 MG PO (23:28)
[2022-02-17] VITALS: BP 122/73; PULSE 86; RESP 18; TEMP 36.7; O2SAT 95
[2022-02-17 05:55] LABS: Add Manual Diff / Slide Review NO; Basophils Absolute Auto 0 /uL (0-100); Basophils Percent Auto 0.3 % (0-2); Eosinophils Absolute Auto 100 /uL (0-450); Eosinophils Percent Auto 1.3 % (2-4); Hematocrit 30.5 % (41-53); Hemoglobin 10.4 g/dL (13.5-17.5); Lymphocytes Absolute Auto 700 /uL (1100-4500); Lymphocytes Percent Auto 11.7 % (25-40); Mean Corpuscular Hemoglobin 33.9 PG (26-34); Mean Corpuscular Volume 99.6 fL (80-100); Monocytes Absolute Auto 600 /uL (0-900); Monocytes Percent Auto 10.8 % (3-14); Neutrophils Absolute Auto 4500 /uL (1500-7000); Neutrophils Percent Auto 75.9 % (50-75); Platelet Count 167 X10^3/uL (150-400); Red Blood Cell Count 3.07 X10^6/uL (4.5-5.9); Red Cell Distribution Width 14.3 % (11.6-14.8)
[2022-02-17 05:58] LABS: BUN Creatinine Ratio 31.3 (6-22); Blood Urea Nitrogen 42 mg/dL (9-20); Calcium 8.8 mg/dL (8.4-10.2); Carbon Dioxide 29 mmol/L (22-32); Chloride 106 mmol/L (98-107); Estimated Glomerular Filt Rate 56 mL/min (>60); Glucose 106 mg/dL (80-110); HEMOLYSIS < 15 (0-50); Potassium 3.8 mmol/L (3.4-5.1); Sodium 143 mmol/L (137-145)
[2022-02-17 06:00] VITALS: BP 129/87; PULSE 67; RESP 16; TEMP 36.6; O2SAT 97
[2022-02-17 06:10] LABS: Troponin I 0.069 ng/mL (0.01-0.034)
[2022-02-17 07:00] VITALS: O2SAT 97
--- NOTE | 2022-02-17 07:21 | DI.ECHO.S_ITS ---
[facility] +---------+ [facility] +---------+ : : [address] : : : : [id number] : : : : Phone: [phone]+ Echocardiogram Report + + :Name: MARIOLA DUCKWORTH Study Date: 02/17/2022 Height: 72 in : :[facility] ReadingLocation: Weight: 295 lb: : Gender: Male BSA: 2.5 m2 : :: 1950 Age: 71 yrs : :Reason For Study: Congestive Heart Failure : :Ordering Physician: JENNY, : :ASHLEIGH Performed By: Edgar Pandey : :Referring: ASHLEIGH ALVARADO : + + Interpretation Summary The left ventricle is moderate-severely dilated. Left ventricular systolic function is moderately reduced. The ejection fraction is estimated to be 30- 35%. LVEF has mildly decreased since prior study. There is moderate global hypokinesis of the left ventricle. The right ventricle is severely dilated. The right ventricular systolic function is normal. The right ventricular systolic pressure is estimated to be at least 59 mmHg based on an estimated right atrial pressure of 8 mm Hg. Pulomonary arterial hypertension has increased. Both atria are severely dilated. There is moderate mitral regurgitation. There is moderate tricuspid regurgitation. The aortic root is normal size. Procedure: A two-dimensional transthoracic echocardiogram with color flow and Doppler was performed. The study quality was technically adequate. Comparison is made with the echocardiogram of 12/18/2019. A contrast injection of Definity was performed to improve assessment of LV function. Left Ventricle: The left ventricle is moderate-severely dilated. Left ventricular wall thickness is borderline increased. Left ventricular systolic function is moderately reduced. The ejection fraction is estimated to be 30- 35%. There is moderate global hypokinesis of the left ventricle. Diastolic function could not be accurately assessed due to atrial fibrillation. Right Ventricle: The right ventricle is severely dilated. The right ventricular systolic function is normal. Atria: Both atria are severely dilated. The interatrial septum grossly appears intact with no obvious evidence for an atrial septal defect. Mitral Valve: There is mild mitral annular calcification. There is moderate mitral regurgitation. Aortic Valve: The aortic valve is normal in structure and function. No aortic regurgitation is present. Tricuspid Valve: The tricuspid valve is normal in structure but is abnormal in function. There is moderate tricuspid regurgitation. The right ventricular systolic pressure is estimated to be at least 59 mmHg based on an estimated right atrial pressure of 8 mm Hg. Pulmonic Valve: The pulmonic valve is not well seen, but is grossly normal. There is no pulmonic valvular regurgitation. Great Vessels: The aortic root is normal size. The ascending aorta could not be visualized. The IVC is dilated (diameter is greater than 2.1 cm) yet it collapses greater than 50% with a sniff. This suggests a right atrial pressure of 8 mm Hg. Pericardium/ Pleura There is no pericardial effusion. There is no pleural effusion. MMode/2D Measurements & Calculations LVIDd: 6.8 cm LVOT diam: 2.1 cm LVIDs: 5.3 cm Ao root diam: 3.4 cm FS: 22.1 % IVSd: 1.0 cm LVPWd: 1.0 cm LV marie. diameter/BSA (cm/m^2): 2.7 LV sys. diameter/BSA (cm/m^2): 2.1 LA dimension: 5.7 cm RA long axis: 8.4 cm LA A2 area: 48.7 cm2 IVC diam: 3.4 cm LA A4 area: 48.2 cm2 LA length (vol): 8.3 cm LA vol: 239.5 ml LA vol index: 95.3 ml/m2 LVLs ap4: 7.8 cm LVLd ap2: 8.7 cm LVLs ap2: 8.5 cm TAPSE_phl: 2.1 cm Doppler Measurements & Calculations Ao V2 max: 161.0 cm/sec LVOT Max Christo: 114.0 cm/sec Ao V2 mean: 111.0 cm/sec LV V1 max P.2 mmHg Ao max P.0 mmHg LV V1 VTI: 19.8 cm Ao mean P.0 mmHg HAYLEE(I,D): 2.7 cm2 Ao V2 VTI: 25.7 cm HAYLEE(V,D): 2.5 cm2 sev ratio: 0.77 HAYLEE indexed to BSA (cm^2/m^2): 1.1 TR max christo: 357.0 cm/sec MR VTI: 128.0 cm TR max P.0 mmHg SV(LVOT): 68.6 ml AV VR_phl: 0.71 HAYLEE(VTI)/BSA_phl: 1.1 Reading Physician:01:09 PM
[2022-02-17] MEDS: FUROSEMIDE 40 MG/4 ML VIAL IV ×2 (08:35→16:17)
[2022-02-17] MEDS: ACETAMINOPHEN 325 MG TABLET 650 MG PO (08:36)
--- NOTE | 2022-02-17 09:20 | CM.DANOTE ---
DCP Assessment: Payor confirmed: [facility] PCP Confirmed: Brandon Houston MD Pt is a 71 y.o. M admitted for pneumonia. Pt currently on O2 NC. Pt admitted for further management and evaluation of his symptoms. DCP met with pt this morning to discuss discharge needs. Pt sitting up in bed eating breakfast. DCP introduced self and role. Pt lives at home with his , Kennedi, in a three story house with an elevator in [place]. Pt is wheelchair bound. Pt denies using home O2. Pt relies on other for transport. Pt states he has caregivers who come to the home but unable to identify which agency. Pt to come up to hospital today to see pt and DCP will attempt to meet with her for further questions. Unclear needs at this time. [employer]ulse updated. Instructed to call. Pt thankful for discussion. Upon leaving room ,pt asking for O2 to be turned up as he is having trouble breathing. DCP verbalized she would let his nurse know. DCP did let RN know and she is managing. P: Unclear needs at this time. DCP to continue to follow. Anticipate home with his current caregivers/home health. Amina Rosa RN/KALLI Discharge Planning/Care Management Advanced directive, confirm from FAMILY Start: 02/16/22 21:43 Freq: Q24H Status: Active Protocol: Document 02/16/22 21:43 AKP (Rec: 02/16/22 21:44 AKP [id number]) Advance Directive, confirm on record Time 21:44 Person contacted pt to ask to bring in. Copy received No CM Discharge Assessment Start: 02/17/22 09:18 Freq: Status: Active Protocol: Document 02/17/22 09:18 AJ (Rec: 02/17/22 09:20 AJ [id number]) Discharge Planning Assessment Assigned Floor Mechanic Amina Rosa RN/KALLI Advance Directives? Yes Advance Directives on File No History Provided By Patient Prior Living Arrangements House Household Members spouse Type of transporation used prior to Relies on Others admit Independent with ADL's No: Pt requiring some assistance Needs Assistance With Bathing,Managing Medications, Home Chores / Shopping DME Already Rented / Owned Wheelchair Comment Pt wheelchair bound Discharge Plan Home Community Services Home Health Aid,Home Health Nurse Transportation Arrangement Spouse POV Referrals Initiated Home Health Additional Comment Pt does pay privately for caregivers. Whiteboard Updated in Patient Room with Yes name and ext. # of Floor Mechanic Comment Instructed to call Review Status In Process Please Provide Date Initial DC 02/17/22 Assessment Was Performed Next Review Type Continued Stay Review
[2022-02-17] MEDS: APIXABAN 5 MG TABLET PO ×2 (10:31→21:18)
--- NOTE | 2022-02-17 10:46 | PM.PN.1 ---
Subjective Subjective Date Patient Seen: 02/17/22 Time Patient Seen: 14:00 Interval history: Patient says his breathing has improved alot since this morning. Exam Vital Signs (past 8 hours): - 02/17/22 06:00 Temperature 97.8 F Pulse Rate 67 Respiratory Rate 16 Blood Pressure 129/87 Pulse Oximetry 97 Oxygen Flow Rate 4 Oxygen Delivery Method CPAP Oxygen Flow Rate 4 Narrative Exam Narrative: GEN: comfortable on O2 NC, no acute distress, obese HEENT: moist mucous membranes, PERRL NECK: trachea midline, no JVD CV: irregular, no murmurs PULM: faint crackles ABD: soft, nontender, nondistended, no organomegaly EXT: warm and well perfused with no edema NEURO: awake, alert, oriented, no focal deficits Objective Labs Result Diagrams: 02/17/22 04:50 02/17/22 04:50 Labs: Laboratory Results - last 24 hr 02/16/22 02/16/22 02/16/22 18:26 18:26 18:26 WBC 5.8 RBC 3.42 L Hgb 11.6 L Hct 33.8 L MCV 99.1 MCH 34.0 MCHC 34.3 RDW 14.3 Plt Count 182 Neut % (Auto) 76.7 H Lymph % (Auto) 12.6 L [place] % (Auto) 8.5 Eos % (Auto) 1.8 L Baso % (Auto) 0.4 Neut # (Auto) 4500 Lymph # (Auto) 700 L [place] # (Auto) 500 Eos # (Auto) 100 Baso # (Auto) 0 PT 16.0 H INR 1.4 H D-Dimer Sodium 144 Potassium 3.9 Chloride 107 Carbon Dioxide 30 BUN 43 H Creatinine 1.47 H Estimated GFR 50 L BUN/Creatinine Ratio 29.3 H Glucose 102 Lactate Calcium 9.3 Total Bilirubin 0.7 AST 30 ALT 19 Alkaline Phosphatase 89 Total Creatine Kinase 72 CK-MB (CK-2) TNP CK-MB (CK-2) Rel Index TNP Troponin I 0.050 H NT-Pro-B Natriuret Pep Total Protein 7.5 Albumin 4.1 Globulin 3.4 Albumin/Globulin Ratio 1.2 Procalcitonin 0.16 Chlamy pneumoniae PCR Adenovirus (PCR) B. pertussis DNA (PCR) B.parapertussis DNA PCR Coronavirus OC43 (PCR) Coronavirus HKU1 (PCR) Coronavirus 229E (PCR) SARS-CoV-2 (PCR) Coronavirus NL63 (PCR) Human Metapneumovir PCR Influenza Type A (PCR) Influenza Type B (PCR) M. pneumoniae (PCR) Parainfluenza 1 (PCR) Parainfluenza 2 (PCR) Parainfluenza 3 (PCR) Parainfluenza 4 (PCR) RSV (PCR) Entero/Rhino (PCR) 02/16/22 02/16/22 02/16/22 18:26 18:26 18:26 WBC RBC Hgb Hct MCV MCH MCHC RDW Plt Count Neut % (Auto) Lymph % (Auto) [place] % (Auto) Eos % (Auto) Baso % (Auto) Neut # (Auto) Lymph # (Auto) [place] # (Auto) Eos # (Auto) Baso # (Auto) PT INR D-Dimer 1740 H Sodium Potassium Chloride Carbon Dioxide BUN Creatinine Estimated GFR BUN/Creatinine Ratio Glucose Lactate 1.0 Calcium Total Bilirubin AST ALT Alkaline Phosphatase Total Creatine Kinase CK-MB (CK-2) CK-MB (CK-2) Rel Index Troponin I NT-Pro-B Natriuret Pep 2130 H Total Protein Albumin Globulin Albumin/Globulin Ratio Procalcitonin Chlamy pneumoniae PCR Adenovirus (PCR) B. pertussis DNA (PCR) B.parapertussis DNA PCR Coronavirus OC43 (PCR) Coronavirus HKU1 (PCR) Coronavirus 229E (PCR) SARS-CoV-2 (PCR) Coronavirus NL63 (PCR) Human Metapneumovir PCR Influenza Type A (PCR) Influenza Type B (PCR) M. pneumoniae (PCR) Parainfluenza 1 (PCR) Parainfluenza 2 (PCR) Parainfluenza 3 (PCR) Parainfluenza 4 (PCR) RSV (PCR) Entero/Rhino (PCR) 02/16/22 02/17/22 02/17/22 18:40 00:27 04:50 WBC 6.0 RBC 3.07 L Hgb 10.4 L Hct 30.5 L MCV 99.6 MCH 33.9 MCHC 34.0 RDW 14.3 Plt Count 167 Neut % (Auto) 75.9 H Lymph % (Auto) 11.7 L [place] % (Auto) 10.8 Eos % (Auto) 1.3 L Baso % (Auto) 0.3 Neut # (Auto) 4500 Lymph # (Auto) 700 L [place] # (Auto) 600 Eos # (Auto) 100 Baso # (Auto) 0 PT INR D-Dimer Sodium Potassium Chloride Carbon Dioxide BUN Creatinine Estimated GFR BUN/Creatinine Ratio Glucose Lactate Calcium Total Bilirubin AST ALT Alkaline Phosphatase Total Creatine Kinase CK-MB (CK-2) CK-MB (CK-2) Rel Index Troponin I 0.060 H NT-Pro-B Natriuret Pep Total Protein Albumin Globulin Albumin/Globulin Ratio Procalcitonin Chlamy pneumoniae PCR Not detected Adenovirus (PCR) Not detected B. pertussis DNA (PCR) Not detected B.parapertussis DNA PCR Not detected Coronavirus OC43 (PCR) Not detected Coronavirus HKU1 (PCR) Not detected Coronavirus 229E (PCR) Not detected SARS-CoV-2 (PCR) Not detected Coronavirus NL63 (PCR) Not detected Human Metapneumovir PCR Not detected Influenza Type A (PCR) Not detected Influenza Type B (PCR) Not detected M. pneumoniae (PCR) Not detected Parainfluenza 1 (PCR) Not detected Parainfluenza 2 (PCR) Not detected Parainfluenza 3 (PCR) Not detected Parainfluenza 4 (PCR) Not detected RSV (PCR) Not detected Entero/Rhino (PCR) Not detected 02/17/22 02/17/22 04:50 04:50 WBC RBC Hgb Hct MCV MCH MCHC RDW Plt Count Neut % (Auto) Lymph % (Auto) [place] % (Auto) Eos % (Auto) Baso % (Auto) Neut # (Auto) Lymph # (Auto) [place] # (Auto) Eos # (Auto) Baso # (Auto) PT INR D-Dimer Sodium 143 Potassium 3.8 Chloride 106 Carbon Dioxide 29 BUN 42 H Creatinine 1.34 H Estimated GFR 56 L BUN/Creatinine Ratio 31.3 H Glucose 106 Lactate Calcium 8.8 Total Bilirubin AST ALT Alkaline Phosphatase Total Creatine Kinase CK-MB (CK-2) CK-MB (CK-2) Rel Index Troponin I 0.069 H NT-Pro-B Natriuret Pep Total Protein Albumin Globulin Albumin/Globulin Ratio Procalcitonin Chlamy pneumoniae PCR Adenovirus (PCR) B. pertussis DNA (PCR) B.parapertussis DNA PCR Coronavirus OC43 (PCR) Coronavirus HKU1 (PCR) Coronavirus 229E (PCR) SARS-CoV-2 (PCR) Coronavirus NL63 (PCR) Human Metapneumovir PCR Influenza Type A (PCR) Influenza Type B (PCR) M. pneumoniae (PCR) Parainfluenza 1 (PCR) Parainfluenza 2 (PCR) Parainfluenza 3 (PCR) Parainfluenza 4 (PCR) RSV (PCR) Entero/Rhino (PCR) [facility] Medical History Atrial fibrillation (~2014) Chicken pox (~1959) Chronic back pain (~2009) Deep vein thrombosis (~1989) Foot pain (~1989) Fractures (~1989) Hearing loss Irritable bowel syndrome (~2014) Low testosterone (~1989) Measles (~1959) Pneumonia Sleep apnea (~1989) Vision disorder Surgical History Anesthesia [place] filter in place (~1992) History of back surgery History of surgery (~2015) History of tonsillectomy Social History household members: spouse Smoking Status: Never smoker alcohol intake: current Assessment & Plan Assessment & Plan narrative: 1. Acute hypoxemic respiratory failure secondary to probable pneumonia vs systolic CHF exacerbation -patient with cough, chills, xray findings consistent with pneumonia with bilateral patchy opacities. Requiring 4L NC and normally only on CPAP at night. -echo with EF 30-35%, global LV dysfunction and mildly reduced from prior echo. Dr. Carrasco his home health clinical supervisor contacted and aware and recommends diuresis. -continue ceftriaxone and azithromycin -continue lasix 40mg IV BID -respiratory panel PCR negative -BNP elevated, and troponin indeterminate -Dimer 1740 but patient on eliquis -breathing improving with diuresis and IV abx -wean O2 as able 2. Atrial fibrillation -restart home coreg -continue apixaban 3. CAROL -continue CPAP 4. History of DVT -continue apixaban 5. CKD stage 2 -monitor creatinine, creatinine appears at baseline 6. Myocardial demand ischemia -trops stable at 0.060's -doubt true nstemi as no chest pain CODE: Full Proxy: Kennedi Duarte, spouse I have utilized all available resources to reconcile the patient's home medications Dispo: 1-2 days pending improvement in CHF, PNA and weaning off O2. Time Spent With Patient Critical Care time: I spent a total of [] minutes of critical care time on this patient's care today; this time is exclusive of procedural time. Quality VTE Deep Vein Thrombosis/Pulmonary Embolism Present on Admission: No
[2022-02-17 12:00] VITALS: BP 130/72; PULSE 70; RESP 16; TEMP 37.2; O2SAT 97
[2022-02-17 21:15] VITALS: O2SAT 96
[2022-02-17] MEDS: cefTRIAXone 1,000 MG in SODIUM CHLORIDE 0.9% 100 ML 200 MG IV (21:22)
[2022-02-17] MEDS: AZITHROMYCIN 500 MG in DEXTROSE 5% IN WATER 250 ML 250 MG IV (22:21)
[2022-02-17] MEDS: SODIUM CHLORIDE 0.9% FLUSH 10 ML IV (23:21)
[2022-02-17 23:44] VITALS: BP 119/74; PULSE 75; RESP 19; TEMP 36.1; O2SAT 96
[2022-02-18] VITALS (7 sets, daily range): BP systolic 111–163; BP diastolic 60–83; PULSE 67–81; RESP 16–19; TEMP 36.1–36.4; O2SAT 94–98
[2022-02-18] MEDS: ACETAMINOPHEN 325 MG TABLET 650 MG PO (05:51)
[2022-02-18] MEDS: SODIUM CHLORIDE 0.9% FLUSH 10 ML IV ×2 (08:58→21:26)
[2022-02-18] MEDS: APIXABAN 5 MG TABLET PO ×2 (08:58→21:27)
[2022-02-18] MEDS: FUROSEMIDE 40 MG/4 ML VIAL IV ×2 (08:58→16:53)
--- NOTE | 2022-02-18 18:30 | PM.PN.1 ---
Subjective Subjective Date Patient Seen: 02/18/22 Interval history: 71-year-old gentleman with underlying atrial fibrillation, obstructive sleep apnea on CPAP, chronic systolic congestive heart failure,, chronically wheelchair-bound secondary to a viral illness he contracted in [place] that led to severe lower extremity weakness, and prior DVT who was admitted with acute hypoxic respiratory failure, pneumonia, and concern for acute CHF exacerbation. Patient reports he continues to have significant cough. He does expectorates some sputum. At baseline, he states he does not use any oxygen. However, here he has required 4 L of oxygen continuously. He denies any chest pain. He denies any other acute symptoms. Exam Vital Signs (past 8 hours): - 02/18/22 12:40 02/18/22 18:00 Temperature 97.5 F L 97.0 F L Pulse Rate 79 81 Respiratory Rate 16 18 Blood Pressure 135/74 163/79 H Pulse Oximetry 96 97 Oxygen Flow Rate 2 3 Oxygen Delivery Method Nasal Cannula Oxygen Flow Rate 3 Narrative Exam Narrative: GEN: Pleasant middle-aged male, Alert and oriented x 3, NAD HEENT:NC, Face symmetric CHEST: Respiratory excursions symmetric, decreased breath sounds in the anterior lung moss CV: Irregularly irregular, no M/R/G ABD: Soft, obese, NT/ND, BT present in all 4 quadrants, body habitus limits exam EXTR: warm, well perfused, no C/C/E SKIN: warm and dry, no rash NEURO: Alert and oriented x 3, nonfocal Objective Labs Result Diagrams: 02/17/22 04:50 02/17/22 04:50 [facility] Medical History Atrial fibrillation (~2014) Chicken pox (~1959) Chronic back pain (~2009) Deep vein thrombosis (~1989) Foot pain (~1989) Fractures (~1989) Hearing loss Irritable bowel syndrome (~2014) Low testosterone (~1989) Measles (~1959) Pneumonia Sleep apnea (~1989) Vision disorder Surgical History Anesthesia Chidester filter in place (~1992) History of back surgery History of surgery (~2015) History of tonsillectomy Social History household members: spouse Smoking Status: Never smoker alcohol intake: current Assessment & Plan Assessment & Plan narrative: Acute hypoxic respiratory failure Etiology is likely pneumonia. He continues to require 4 L of oxygen to maintain his saturations. Will wean as tolerated. I have encouraged him to work on getting up to a chair to help improve pulmonary hygiene. Pneumonia, right mid lung and left lung base Continue IV Rocephin and azithromycin. At noted, will work on it attempting to improve his pulmonary hygiene Atrial fibrillation Continue apixaban Restart Coreg. Holding amiodarone in the setting of azithromycin use Obstructive sleep apnea Continue his usual home CPAP History of DVT Remains on apixaban CKD 2 Creatinine is stable at 1.34 with a GFR 56 Chronic systolic CHF, with acute exacerbation Continue IV furosemide for now. Will consider transitioning to oral diuretics tomorrow. Code status Full Prophylaxis Apixaban Disposition Pending Time Spent With Patient Critical Care time: I spent a total of [] minutes of critical care time on this patient's care today; this time is exclusive of procedural time. Quality VTE Deep Vein Thrombosis/Pulmonary Embolism Present on Admission: No
[2022-02-18] MEDS: cefTRIAXone 1,000 MG in SODIUM CHLORIDE 0.9% 100 ML 200 MG IV (21:27)
[2022-02-18] MEDS: GABAPENTIN 300 MG CAPSULE PO (21:27)
[2022-02-18] MEDS: TERAZOSIN 5 MG CAPSULE 10 MG PO (21:30)
[2022-02-18] MEDS: carvediloL 12.5 MG TABLET 6.25 MG PO (21:38)
[2022-02-18] MEDS: AZITHROMYCIN 500 MG in DEXTROSE 5% IN WATER 250 ML 250 MG IV (22:13)
[2022-02-19] VITALS (9 sets, daily range): BP systolic 110–112; BP diastolic 45–62; PULSE 58–71; RESP 17–20; TEMP 36.9–37.3; O2SAT 92–98
--- NOTE | 2022-02-19 05:46 | P.PN_ITS ---
Subjective Subjective Interval history: 71-year-old gentleman with underlying atrial fibrillation, obstructive sleep apnea on CPAP, chronic systolic congestive heart failure,, chronically wheelchair-bound secondary to a viral illness he contracted in [place] that led to severe lower extremity weakness, and prior DVT who was admitted with acute hypoxic respiratory failure, pneumonia, and concern for acute CHF exacerbation. Patient reports he continues to have significant cough. He is expectorating green/yellow/clear sputum. He has had decreased oxygen need in the last 24 hours, down from 4 L to 1 L today. He is hopeful of being able to discharge home tomorrow. He continues to ask questions regarding his chronic lower extremity weakness with neurologic symptoms such as foot drop and he reports impaired nerve conduction studies. He has been followed at the [facility] as well as his primary care provider attempting to get him in with Neurology in [facility]. He reports he was up yesterday in a chair for quite awhile and was able to tolerate that well. He expresses that he will need to go home in an ambulance given his significant mobility issues. Exam Vital Signs (past 8 hours): - 02/19/22 00:00 Temperature 99.2 F Pulse Rate 60 Respiratory Rate 17 Blood Pressure 110/57 L Pulse Oximetry 92 Oxygen Flow Rate 3 Oxygen Delivery Method CPAP Oxygen Flow Rate 3 Const Other: GEN:? Pleasant middle-aged male, Alert and oriented x 3, NAD HEENT:NC, Face symmetric CHEST: Respiratory excursions symmetric, decreased breath sounds in the anterior lung moss CV:? Irregularly irregular, no M/R/G ABD: Soft, obese, NT/ND, BT present in all 4 quadrants, body habitus limits exam EXTR: warm, well perfused, no C/C/E SKIN: warm and dry, no rash NEURO: Alert and oriented x 3, nonfocal Objective Labs Result Diagrams: 02/19/22 17:15 02/19/22 17:15 [facility] Medical History Atrial fibrillation (~2014) Chicken pox (~1959) Chronic back pain (~2009) Deep vein thrombosis (~1989) Foot pain (~1989) Fractures (~1989) Hearing loss Irritable bowel syndrome (~2014) Low testosterone (~1989) Measles (~1959) Pneumonia Sleep apnea (~1989) Vision disorder Surgical History Anesthesia Mehdi filter in place (~1992) History of back surgery History of surgery (~2015) History of tonsillectomy Social History household members: spouse Smoking Status: Never smoker alcohol intake: current Assessment & Plan Assessment & Plan narrative: Acute hypoxic respiratory failure Etiology is likely pneumonia.? O2 need is improved today down from 4 liters/minute to 1 liter/minute. Continue working on getting up to chair as florencia erated..? Pneumonia, right mid lung and left lung base Continue IV Rocephin and azithromycin.? He is clinically improving. Atrial fibrillation Continue apixaban and Coreg. Holding amiodarone in the setting of azithromycin treatment Obstructive sleep apnea Continue his usual home CPAP History of DVT Remains on apixaban CKD 2 Creatinine was 1.34 yesterday with a GFR of 56. Today it is 1.50 with GFR 49, stable at baseline overall. However, will discontinue IV furosemide. Resume his usual oral Lasix. Chronic systolic CHF, with acute exacerbation As above, transitioned to usual home dose of Lasix today. Code status Full Prophylaxis Apixaban Disposition Possible discharge home tomorrow. Time Spent With Patient Critical Care time: I spent a total of [] minutes of critical care time on this patient's care tod ay; this time is exclusive of procedural time. Quality VTE Deep Vein Thrombosis/Pulmonary Embolism Present on Admission: No
[2022-02-19] MEDS: PANTOPRAZOLE DR 20 MG TABLET PO (06:17)
[2022-02-19] MEDS: carvediloL 12.5 MG TABLET 6.25 MG PO ×2 (10:23→20:38)
[2022-02-19] MEDS: MULTIVITAMIN 1 TABLET 1 TAB PO (10:23)
[2022-02-19] MEDS: FUROSEMIDE 40 MG/4 ML VIAL IV ×2 (10:27→17:36)
[2022-02-19] MEDS: APIXABAN 5 MG TABLET PO ×2 (10:27→20:37)
[2022-02-19] MEDS: GABAPENTIN 300 MG CAPSULE PO ×2 (10:27→20:37)
[2022-02-19] MEDS: FLUTICASONE 120 SPRAY/16 GM SPRAY.SUSP NASAL (10:29)
[2022-02-19] MEDS: SODIUM CHLORIDE 0.9% FLUSH 10 ML IV ×2 (10:30→20:42)
--- NOTE | 2022-02-19 13:31 | CM.DPC ---
DCP Cont: Met with patient in his room. Introduced self and role. Confirmed that patient resides with spouse, Kennedi. Patient is currently going to outpatient rehab next door. Patient prefers to continue to do so, not home health. He feels that he has been making progress. Patient indicated that he does have home elevator, and a sit to stand mechanical lift at home. He has [facility] that come in for 4 hours a week. He has a wheel-chair van that he will rent for appointments. Patient is frustrated, as he still does not know why his legs don't work. Let patient know that per hospitalist, placed a P.T. order for him. Patient also has orthodics that he uses. Patient has seen neurologists, feel that they don't help much. Patient indicated that he was at [facility] in [place] a year ago, developed a virus and could not walk. He indicated that he is frustrated, because he has a boat at the [place] that he can't use, and a jennifer that he can't get into. P: DCP to continue to follow. Plan at this time is home when medically stable, and patient will continue with outpatient P.T. He will work with P.T. here in the hospital. Vanna Hardy RN/Career Services Representative
--- NOTE | 2022-02-19 13:59 | PC.NURSE ---
Alert and oriented, follows commands asking appropriate questions, discussing plan of care will decrease O2 over the day as tolerated. at 3ltrs presently. spoke with RT decreased O2 to 1.5 ltrs. Pt sat 95-98%
[2022-02-19 17:34] LABS: BUN Creatinine Ratio 28.7 (6-22); Blood Urea Nitrogen 43 mg/dL (9-20); Calcium 9.1 mg/dL (8.4-10.2); Carbon Dioxide 34 mmol/L (22-32); Chloride 99 mmol/L (98-107); Estimated Glomerular Filt Rate 49 mL/min (>60); Glucose 109 mg/dL (80-110); HEMOLYSIS < 15 (0-50); Potassium 3.7 mmol/L (3.4-5.1); Sodium 139 mmol/L (137-145)
[2022-02-19 17:35] LABS: Add Manual Diff / Slide Review NO; Basophils Absolute Auto 0 /uL (0-100); Basophils Percent Auto 0.5 % (0-2); Eosinophils Absolute Auto 100 /uL (0-450); Eosinophils Percent Auto 2.6 % (2-4); Hematocrit 32.1 % (41-53); Lymphocytes Absolute Auto 800 /uL (1100-4500); Lymphocytes Percent Auto 14.8 % (25-40); Mean Corpuscular HGB Conc 34.4 % (30-36); Mean Corpuscular Hemoglobin 33.8 PG (26-34); Mean Corpuscular Volume 98.2 fL (80-100); Monocytes Absolute Auto 700 /uL (0-900); Monocytes Percent Auto 12.1 % (3-14); Neutrophils Absolute Auto 3900 /uL (1500-7000); Platelet Count 197 X10^3/uL (150-400); Red Blood Cell Count 3.27 X10^6/uL (4.5-5.9); Red Cell Distribution Width 13.9 % (11.6-14.8); White Blood Cell Count 5.5 X10^3/uL (4.5-11.0)
--- NOTE | 2022-02-19 17:40 | PT.IIE ---
Current Diagnoses Pneumonia, unspecified organism (02/16/22) Surgical History (Last Reviewed 02/16/22 @ 20:37 by Claude Mason MD) Anesthesia Mehdi filter in place (~1992) History of back surgery History of surgery (~2015) History of tonsillectomy Medical History (Last Reviewed 02/16/22 @ 20:37 by Claude aMson MD) Atrial fibrillation (~2014) Chicken pox (~1959) Chronic back pain (~2009) Deep vein thrombosis (~1989) Foot pain (~1989) Fractures (~1989) Hearing loss Irritable bowel syndrome (~2014) Low testosterone (~1989) Measles (~1959) Pneumonia Sleep apnea (~1989) Vision disorder Physical Therapy Inpatient Evaluation/Re-Eval M1 PT/OT-IP Prior Functional Status Start: 02/19/22 17:47 Freq: NEEDED Status: Active Protocol: Document 02/19/22 17:40 DLM (Rec: 02/19/22 18:08 DLM [id number]) Medical Review Prior Functional Status Medical History Reviewed Yes Diet/Fluid Consistency Regular Communication WFL Mobility and Gait uses manual wheelchair with assist from his , has power sit-stand for transfers, has been working on standing and taking steps in out-pt physical therapy with two assist, he has a hospital bed with bed rail and trapeze Activities of Daily Living and IADL's can feet himself; help with toileting, dressing, bathing His and hired caregiver assist him Prior Functional Level (Other details) Hired caregiver assist Mon-Sat for 4 hours at a time. Sometimes they have 6 hours of help so his can get errands, etc completed. Social History Household Members spouse Living Arrangements House Number of Stairs To Enter/Railing? elevator in house Home Environment High Toilet Home Equipment Front Wheel Walker,Manual Wheelchair,Hand Held Shower, Hospital Bed,Bed Rails,Grab Bars Near Toilet,Grab Bars In Shower Employment Status Retired Additional Social History Comment He is participating in out-pt PT at [facility]. His rents a wheelchair van to transport him but she has difficulty getting him up the ramp into the van. The driveway at their house is uphill which makes it difficult for his to push him up so the patient pushes with his UE's while his pushes. M2 PT-IP Current Condition Start: 02/19/22 17:47 Freq: NEEDED Status: Active Protocol: Document 02/19/22 17:40 DLM (Rec: 02/19/22 18:08 DLM [id number]) Physical Therapy Current Condition Current Condition Evaluation Date 02/19/22 Treatment Diagnosis PNA, impaired mobility/gait Onset Date 02/16/22 M3 PT-IP Subjective Start: 02/19/22 17:47 Freq: NEEDED Status: Active Protocol: Document 02/19/22 17:40 DLM (Rec: 02/19/22 18:08 DLM [id number]) Subjective Physical Therapy Visit Type Type Initial Evaluation Visit Start Time 16:30 Visit Stop Time 14:30 Total Visit Minutes 60 Number of PRINCIPAL SOFTWARE ARCHITECT Visits 0 Physical Therapy Visit Comments Patient Comments His reports as long as he can use the power sit-stand she can manage him at home. Patient Goals be able to discharge home M4 PT-IP Mobility and Gait Start: 02/19/22 17:47 Freq: NEEDED Status: Active Protocol: Document 02/19/22 17:40 DLM (Rec: 02/19/22 18:08 DLM [id number]) PT-Bed Mobility Assessment Rolling Type of Rolling Bilateral Level of Assist Minimal Assistance Supine to Sit Supine to Sit Minimal Assistance,Head of Bed Elevated,Bedrails Sit to Supine Sit to Supine Minimal Assistance,Bedrails Scooting Scooting to Edge of Bed Standby Assistance PT-Transfer Assessment Comments Mobility Comments Power sit to stand used to get pt in standing and to transfer. Pt able to participate with the power sit -stand and tolerated it well. Gait Assessment Comments Gait Comments not tested this visit, pt primarily in the wheelchair at home and working to progress to gait in out-pt PT Stair Climbing Assessment Comments Stair Climbing Comments does not do stairs at baseline PT-Balance Assessment Sitting Balance and Reactions Static Sitting Balance Ability Good Dynamic Sitting Balance Ability Good Comments Other Balance Tests/Deviations/Treatment pt only stood in the power sit : -stand so balance not assessed Functional Assessments Other Functional Tests Performed he was not able to scoot laterally seated on the edge of the bed M5 PT-IP Objective Assessments Start: 02/19/22 17:47 Freq: NEEDED Status: Active Protocol: Document 02/19/22 17:40 DLM (Rec: 02/19/22 18:08 DL [id number]) Orientation Orientation/Cognition Level of Alertness Alert Orientation Name,Age,Birthday,Month,Date, Year,Day of Week,Place, Situation Language Function Ability No Deficits Noted Safety Awareness Understands Safety Issues Memory Description No Deficits Noted Gross Range of Motion Upper Extremity ROM Assessment Within Functional Limits Lower Extremity ROM Assessment Within Functional Limits Strength Upper Extremity Strength Assessment Bilaterally Impaired Lower Extremity Strength Assessment Bilaterally Impaired Comments Strength Comments LE's more impaired than UE's Coordination Assessment Gross Coordination Gross Coordination WNL Sensation Assessment Sensation Gross Sensation Right LE Impaired,Left LE Impaired Sensation Description Hyperesthesia,Pain Comments Sensation Comments His distal LE's are hypersensative to touch M6 PT-IP Treatment Start: 02/19/22 17:47 Freq: NEEDED Status: Active Protocol: Document 02/19/22 17:40 DLM (Rec: 02/19/22 18:08 DL [id number]) Physical Therapy Treatment Education Education Provided Safety Other Treatments Other Treatment Performed His is present and discussed what he needs to be able to do to safely discharge home. Pt is on 1 LPM of oxygen today . M7 PT-IP Assessment and Plan Start: 02/19/22 17:47 Freq: NEEDED Status: Active Protocol: Document 02/19/22 17:40 DLM (Rec: 02/19/22 18:08 DL [id number]) PT Summary Assessment and Plan Potential Rehabilitation Potential Good Status of Condition at Evaluation Evolving Summary Impairments Pain,Strength,Sensation,Bed Mobility,Transfers,Gait, Activity Tolerance Progress Towards Goals Safe For Discharge Assessment Summary Anderson and his want to make sure he is safe to discharge home when he is medically cleared to leave the hospital. He uses a power sit -stand at home for transfers and showed good tolerance for using it today. Pt is using a wheelchair at home. After this assessment and discussion with pt and his he appears safe to discharge home with his and caregiver support. Recommend he return to out-pt PT for further therapy. Anderson and his feel they have a good routine at home. His feels she can transport him if she has the rented wheelchair van and pt is in his wheelchair. He will need to transport by stretcher if a wheelchair van is not available. Pt needs a wide wheelchair. Frequency of Treatment Frequency Of Treatment Discharge Treatment Plan Other Recommendations and Next Treatment defer further treatment to out Focus -pt PT Recommendations To Nursing Amount of Assist Needed Mechanical Lift,Power Sit- Stand Discharge Recommendations PT Discharge Recommendations Home with Assistance, Outpatient PT Other Discharge Recommendations His and hired caregivers assist him at home, his reports they have the equiment they need at this time Transportation Needs at Discharge Wheelchair/Cabulance,Stretcher /Ambulance
[2022-02-19] MEDS: LOPERAMIDE 2 MG CAPSULE PO ×2 (17:57→20:37)
[2022-02-19] MEDS: TERAZOSIN 5 MG CAPSULE 10 MG PO (20:37)
[2022-02-19] MEDS: AZITHROMYCIN 250 MG TABLET 500 MG PO (22:58)
[2022-02-19] MEDS: cefTRIAXone 1,000 MG in SODIUM CHLORIDE 0.9% 100 ML 200 MG IV (22:59)
[2022-02-20] VITALS: BP 111/63; PULSE 72; RESP 16; TEMP 36.9; O2SAT 94
[2022-02-20 05:43] VITALS: BP 104/65; PULSE 97; RESP 18; TEMP 37.2; O2SAT 97
[2022-02-20] MEDS: PANTOPRAZOLE DR 20 MG TABLET PO (06:08)
[2022-02-20] MEDS: FUROSEMIDE 20 MG TABLET PO (09:57)
[2022-02-20] MEDS: GABAPENTIN 300 MG CAPSULE PO (09:57)
[2022-02-20] MEDS: MULTIVITAMIN 1 TABLET 1 TAB PO (09:57)
[2022-02-20] MEDS: LOPERAMIDE 2 MG CAPSULE PO (09:57)
[2022-02-20] MEDS: APIXABAN 5 MG TABLET PO (09:57)
[2022-02-20] MEDS: FLUTICASONE 120 SPRAY/16 GM SPRAY.SUSP NASAL (09:57)
[2022-02-20 11:10] VITALS: BP 114/60; PULSE 69; RESP 22; TEMP 36.6; O2SAT 93
--- NOTE | 2022-02-20 11:26 | PC.NURSE ---
Patient is going to be discharged to home, [facility] transportation is being arranged, for around 1300. Patient is being repositioned every 2 hours, as he has a small pressure ulcer to his coccyx area. Cream being applied to area, He is lying on his r.side at this time. is at bedside. He denies pain, only when lying supine on his bottom.
--- NOTE | 2022-02-20 13:28 | CM.DPC ---
DCP Continued: CM met with patient at the bedside to discuss DC transportation home. Patient would like to have BLS transport home due to him being wheel chair/ bed bound at baseline and needs a lift to get him in and out of his chair and bed. Patients wheel chair is currently at home and will need assistance to get him into his chair at home once he arrives. Cm explained to the patient that he could receive a bill for around $1500 (Per [facility]) for the BLS ambulance ride home. Patient stated understanding and agreed to having BLS transport home. CM called [facility] and scheduled ride to patients home for 1345. CM contacted patients who stated she would be home when they arrive to assist with the patient. CM got medical necessity form signed by Dr. Wynne and gave original to Nurse to give to BLS transport and put copy to be scanned into EMR. Nancy Fox RNmanager global communications
--- NOTE | 2022-02-20 20:44 | PM.DS.1 ---
History of Present Illness History of Present Illness Chief complaint: SOB Narrative: Per history and physical: Mr. Duarte is a 71M with PMH afib, DVT, CAROL, CHF who presents to the hospital with cough and shortness of breath. He has a productive cough with green sputum and streaks of blood. He has also noted no fevers/chills. No chest pain. He has noted some slight increase in lower extremity edema. He called EMS who administered a duoneb and placed him on 4L oxygen. He has no sick contacts at home. In the ED workup was done, vitals notable for tachycardia and tachypnea. He continued on oxygen. Labs notable for WBC 5.8, hgb 11.6. Creatinine 1.47. Trop 0.05, BNP 2130. Procal 0.16. Respiratory pcr panel negative. Chest xray showed bilateral patchy airspace opacities. He was ordered for antibiotics and admitted for further treatment. Discharge Providers Provider Date of admission: 02/16/22 19:55 Discharge Date: 02/20/22 Primary care physician: Brandon Houston MD Consults: 02/19/22 12:58 Consult to Physical Therapy Evaluate & Treat Comment: Physician Instructions: Evaluate and Treat Discharge provider: Leonor Wynne MD Summary Hospital Course Discharge Diagnosis: Acute hypoxic respiratory failure, secondary to pneumonia, resolved Pneumonia, right mid lung and left lung base, improved Permanent atrial fibrillation, chronic, stable Chronic anticoagulation with apixaban Obstructive sleep apnea on CPAP History of DVT Chronic kidney disease stage 2 Chronic systolic congestive heart failure with acute exacerbation, improved Chronic lower extremity paresis/weakness secondary to unclear spinal cord injury related to viral infection 1 year ago Pulmonary artery hypertension Moderate mitral regurgitation Moderate tricuspid regurgitation Myocardial demand ischemia, improved Hospital Course: Patient presented to the emergency department with cough and shortness of breath. Cough was productive with green sputum and blood streaking. He was having a slight increase in lower extremity edema but denied fevers or chills. No chest pain. In the emergency department he was noted to be tachycardic and tachypneic. He was placed on oxygen. Chest x-ray revealed patchy bilateral airspace opacities and he was admitted for further treatment. He was placed on IV antibiotics. Given his shortness of breath echocardiogram was performed which revealed a moderately to severely dilated left ventricle, moderately reduced LV systolic function with an ejection fraction of 30-35%. LVEF had mildly decreased since prior study. Moderate global hypokinesis of the left ventricle. Severely dilated right ventricle. RV systolic pressure is elevated to at least 59 mmHg. Moderate mitral regurgitation, moderate tricuspid regurgitation were noted. Patient was placed on IV diuresis. He continued to require 4 L of oxygen to maintain his saturations. Gradually increase activity and oxygen need improved from 4 L on February 18 to 1 L on February 19. Due to some rising creatinine in the setting of his CKD 2, IV diuresis was discontinued on February 19 and he was placed back on his usual oral furosemide. By the date of discharge, he would weaned to room air. Reported clinically significant improvement. He felt ready for discharge home. His who was at bedside also felt comfortable with discharge. Due to his inability to sit up in a wheelchair, it was felt that discharge via nonemergent ambulance would be the best she. He does have an elevator in his home as well as appropriate adaptive DME for use upon his return home. He is encouraged to follow-up with his primary care provider. He remains greatly concerned about his lower extremity weakness and spinal cord injury. I have encouraged him to request a consult with Physical Medicine and rehab as well as Neurology on an outpatient basis. Is discharged in stable condition. 35 minutes spent coordinating discharge Status at Discharge Cognitive/behavioral status at discharge: at baseline, oriented Functional status at discharge: wheelchair bound Overall status at discharge: patient is progressing back to baseline Exam Vital Signs (past 8 hours): Oxygen Delivery Method Room Air Oxygen Flow Rate 0 Narrative Exam Narrative: GEN:? Pleasant middle-aged male, Alert and oriented x 3, NAD HEENT:NC, Face symmetric CHEST: Respiratory excursions symmetric, decreased breath sounds in the anterior lung moss CV:? Irregularly irregular, no M/R/G ABD: Soft, obese, NT/ND, BT present in all 4 quadrants, body habitus limits exam EXTR: warm, well perfused, no C/C/E SKIN: warm and dry, no rash NEURO: Alert and oriented x 3, nonfocal Objective Labs Result Diagrams: 02/19/22 17:15 02/19/22 17:15 [facility]END[facility] TO [facility] Medical History Atrial fibrillation (~2014) Chicken pox (~1959) Chronic back pain (~2009) Deep vein thrombosis (~1989) Foot pain (~1989) Fractures (~1989) Hearing loss Irritable bowel syndrome (~2014) Low testosterone (~1989) Measles (~1959) Pneumonia Sleep apnea (~1989) Vision disorder Surgical History Anesthesia Pass Christian filter in place (~1992) History of back surgery History of surgery (~2015) History of tonsillectomy Social History household members: spouse Smoking Status: Never smoker alcohol intake: current Discharge Plan Discharge Plan Patient Disposition: Home Provider Discharge Comment: Nonemergent ambulance transfer Please return to the ER for worsening shortness of breath/cough, fevers/chills, or inability to hold down food/fluids Discharge orders & Medications Prescriptions: New loperamide 2 mg Capsule 2 mg PO QID PRN (Reason: Diarrhea) Qty: 10 0RF azithromycin [Zithromax Z-Polo] 250 mg Tablet 500 mg PO DAILY@2200 Qty: 1 0RF cefdinir 300 mg capsule 300 mg PO Q12H Qty: 10 0RF Mucus-ER MAX 1,200 mg tablet extended release 12hr 1,200 mg PO Q12H Qty: 20 0RF Continued furosemide 20 mg tablet 20 mg PO BID Qty: 180 3RF terazosin 10 mg capsule 10 mg PO BEDTIME Qty: 90 3RF omeprazole 20 mg capsule,delayed release(DR/EC) 20 mg PO DAILY Qty: 90 0RF fluticasone propionate [Flonase Allergy Relief] 50 mcg/actuation spray,suspension 1 spray intranasal BID Rx Instructions: administer into each nostril Eliquis 5 mg tablet 5 mg PO BID Qty: 180 3RF carvedilol 6.25 mg tablet 6.25 mg PO BID Qty: 180 3RF gabapentin 300 mg capsule 300 mg PO QD-BID Qty: 180 1RF amiodarone 200 mg tablet 200 mg PO DAILY Label Comments: TAKE 1 TABLET BY MOUTH DAILY multivit with min-folic acid 0.4 mg Tablet 1 tab PO DAILY Follow up/Referrals: Brandon Houston MD [Primary Care Provider] - Diet/Activity/Treatments Diet: Diet as Tolerated and Low-sodium Activity: As tolerated Other treatments: Recommend you follow up with neurology and get a referral to a Physical Medicine and Rehab MD/spinal cord injury specialist for consultation Visit Report/Discharge Packet Instructions: DI for Pneumonia -- Adult Discharge Data Primary Care Provider: Brandon Houston VTE Deep Vein Thrombosis/Pulmonary Embolism Present on Admission: No
== END 2022-02-20 13:57 | disposition home or self-care (01) | DRG 193 ==
LOC: ED 18:17 → AC 19:55
PROVIDERS: Family Medicine; Admitting Provider Internal Medicine; Emergency Provider Emergency Medicine; Family Provider Student in an Organized Health Care Education/Training Program; PCP Student in an Organized Health Care Education/Training Program; Referring Provider Emergency Medicine; Visit Provider Internal Medicine
DX: J18.9 Pneumonia, unspecified organism (principal); I50.23 Acute on chronic systolic (congestive) heart failure; J96.01 Acute respiratory failure with hypoxia; I24.8 Other forms of acute ischemic heart disease; I48.21 Permanent atrial fibrillation; G47.33 Obstructive sleep apnea (adult) (pediatric); N18.2 Chronic kidney disease, stage 2 (mild); L89.159 Pressure ulcer of sacral region, unspecified stage; I34.0 Nonrheumatic mitral (valve) insufficiency; I07.1 Rheumatic tricuspid insufficiency; S90.31XA Contusion of right foot, initial encounter; X58.XXXA Exposure to other specified factors, initial encounter; Z86.718 Personal history of other venous thrombosis and embolism; Z79.01 Long term (current) use of anticoagulants; Z20.822 Contact with and (suspected) exposure to COVID-19
CPT/HCPCS: 36415; 71045; 80048; 80053; 82550; 83605; 83880; 84145; 84484; 85025; 85379; 85610; 87040; 87070; 87205; 87633; 93005; 94640; 94760; 96365; 97162; 99284; 99285; C8929; J0696; J1940; Q9957

== ENCOUNTER 2022-03-10 20:49 | Inpatient (IN) | payer MEDICARE, SELFPAY ==
[2022-02-16 21:24] VITALS: BMI 40.0
[2022-03-10] VITALS (14 sets, daily range): BP systolic 141–203; BP diastolic 65–114; PULSE 82–115; RESP 3–58; TEMP 36.7; O2SAT 87–97; BMI 40.0
--- NOTE | 2022-03-10 20:55 | DI.RAD.S_ITS ---
PROCEDURE: XR CHEST 1V INDICATIONS: Shortness of breath TECHNIQUE: One view of the chest was acquired. COMPARISON: [facility], [place], XR CHEST 1V, 02/16/2022, 18:27. FINDINGS: Surgical changes and devices: None. Lungs and pleura: There are bilateral confluent perihilar opacities redemonstrated suggestive of consolidation. Pulmonary vascular prominence is also present suggestive of pulmonary edema. There are small bilateral pleural effusions. No pneumothorax. Mediastinum: Mediastinal contours are unchanged. Heart size is enlarged. Bones and chest wall: No suspicious bony lesions. Overlying soft tissues appear unremarkable. IMPRESSION: 1. Bilateral perihilar opacities suggestive of consolidation and pneumonia. The differential includes confluent areas of pulmonary edema. 2. Pulmonary edema, small pleural effusions, and cardiomegaly suggestive of congestive heart failure. Dictated by: Yousif Virgen M.D. on 03/10/2022 at 23:19 Approved by: Yousif Virgen M.D. on 03/10/2022 at 23:22
--- NOTE | 2022-03-10 21:00 | ED_ITS ---
HPI - SOB/Dyspnea General Chief Complaint: Shortness of Breath/Dyspnea Stated Complaint: cough- fever Time Seen by Provider: 03/10/22 21:00 Source: patient and EMS Mode of arrival: EMS History of Present Illness HPI Narrative: 71-year-old male nonsmoker with extensive medical history including AFib on Eliquis, DVT, sleep apnea, CHF with recent hospitalization for pneumonia presents by EMS for evaluation increasing weakness, chills and productive cough over the past few days. He had been admitted on February 16 discharged on February 20 and had been doing well for 10 days or so and started to have a decline over the past few days. He is had oxygen saturations in the mid 80s and arrives on a nasal cannula at 3 L. he had a rather significant and prolonged hospitalization a year 2 ago after acquiring bacterial pneumonia while on a trip in [place]. Once appropriately stable he was airlifted from [place] to [facility] where he was eventually hospitalized for 85 days. In the aftermath he is had profound generalized weakness, difficulty with ambulation and requires a [id number] lift at home and can ambulate with a walker and much assistance. He does live at home with his they have 4 hours of in-home nursing care per day. In addition to the increasing shortness of breath and sputum production with chills he is profoundly weak. He denies headache or sore throat. He is had no chest pain. He denies nausea, vomiting or diarrhea. Related Data Home Medications Medication Instructions Recorded Confirmed fluticasone propionate 50 1 spray intranasal BID 10/14/21 03/08/22 mcg/actuation nasal spray,suspension (Flonase Allergy Relief) multivitamin with minerals-folic 1 tab PO DAILY 02/17/22 03/08/22 acid 0.4 mg tablet Previous Rx's Medication Instructions Recorded apixaban 5 mg tablet (Eliquis) 5 mg PO BID #180 tabs 10/14/21 carvedilol 6.25 mg tablet 6.25 mg PO BID #180 tabs 10/14/21 gabapentin 300 mg capsule 300 mg PO QD-BID #180 caps 10/14/21 omeprazole 20 mg capsule,delayed 20 mg PO DAILY #90 caps 10/14/21 release furosemide 20 mg tablet 20 mg PO BID #180 tabs 01/28/22 terazosin 10 mg capsule 10 mg PO BEDTIME #90 caps 01/28/22 cefdinir 300 mg capsule 300 mg PO Q12H #10 caps 02/20/22 loperamide 2 mg capsule 2 mg PO QID PRN Diarrhea #10 caps 02/20/22 albuterol sulfate 90 mcg/actuation 1 puff inhalation Q2-4H PRN 03/03/22 aerosol inhaler shortness of breath or wheezing #6.7 grams Allergies Allergy/AdvReac Type Severity Reaction Status Date / Time latex [LATEX] Allergy Intermediate Verified 03/10/22 20:57 CAT/DOG DANDER Allergy Intermediate WATERY,ITCHY Uncoded 03/08/22 15:10 EYES,COUGHING/SNEEZING FITS DUST MITES Allergy Intermediate WATERY/ITCHY Uncoded 03/08/22 15:10 EYES,COUGH,SNEEZING MULTIPLE FOOD ALLERGIES Allergy Intermediate STOMACH Uncoded 03/08/22 15:10 CRAMPS,DIARRHEA GRASS,T Allergy Unknown WATERY Uncoded 03/08/22 15:10 EYES,COUGHING/SNEEZING Review of Systems Review of Systems Narrative: GENERAL: see HPI HEENT: Denies sinus pain, ear pain, sore throat, difficulty swallowing, dizziness. RESPIRATORY: see HPI CARDIOVASCULAR: Denies chest pain, palpitations, orthopnea, edema, GASTROINTESTINAL: Denies nausea, vomiting, abdominal pain, diarrhea, constipation, melena. : Denies dysuria, frequency, incontinence, hematuria, urinary retention. MUSCULOSKELETAL: denies weakness, joint pain, or bony pain SKIN: Denies rash, skin lesions, or other NEUROLOGIC: Denies weakness, headache, numbness, change in speech, confusion, seizures, incoordination. PSYCHIATRIC: No concerning psychosocial issues. 12 point review of systems is negative except for those stated above Patient History Medical History Atrial fibrillation (~2014) Chicken pox (~1959) Chronic back pain (~2009) Deep vein thrombosis (~1989) Foot pain (~1989) Fractures (~1989) Hearing loss Irritable bowel syndrome (~2014) Low testosterone (~1989) Measles (~1959) Pneumonia Sleep apnea (~1989) Vision disorder Surgical History Anesthesia [place] filter in place (~1992) History of back surgery History of surgery (~2015) History of tonsillectomy Social History household members: spouse Smoking Status: Never smoker alcohol intake: current Smoking Status: Never smoker alcohol intake frequency: 0-2 drinks per day Substance Use Type: does not use Exam Narrative Exam Narrative: GENERAL: [71] year old patient appears stated age. Well-developed patient, in mild distress. Significantly weak, requires 2 person assist to sit up for physical exam. Wearing nasal cannula HEAD: Atraumatic. Normocephalic. EYES: Pupils equal round and reactive. Extraocular motions intact. No scleral icterus. No injection or drainage. ENT: Nose without bleeding, purulent drainage. Throat without erythema, tonsillar hypertrophy or exudate. Airway patent. NECK: Trachea midline. Non tender CARDIOVASCULAR: Regular rate and rhythm without murmurs, gallops, or rubs. RESPIRATORY: Decreased breath sounds throughout with crackles in bilateral ba ses GASTROINTESTINAL: Abdomen soft, non-tender, nondistended. EXTREMITIES: No edema or joint tenderness. BACK: Nontender without deformity or crepitance. No flank tenderness. NEURO: AOx3. SKIN: No rash or erythema of visible areas Initial Vital Signs Initial Vital Signs: Vital Signs Pulse Rate 115 H 03/10/22 20:53 Respiratory Rate 17 03/10/22 20:53 Blood Pressure 203/101 H 03/10/22 20:53 Pulse Oximetry 89 L 03/10/22 20:53 Oxygen Delivery Method 03/10/22 20:53 Oxygen Flow Rate 4 03/10/22 20:53 Course Orders Ordered: ED Orders 03/10/22 22:48 ABG [Arterial Blood Gas] Stat Acetaminophen (Acetaminophen 325 Mg Tablet) 650 mg PO Q6H PRN PRN Reason: Fever/Mild Pain (1-3) Albuterol (Albuterol 2.5 Mg/3 Ml Neb (Adult)) 2.5 mg INH Q2H PRN PRN Reason: Shortness Of Breath Or Wheezing Apixaban (Apixaban 5 Mg Tablet) 5 mg PO BID DONNELL Furosemide 80 mg/ Sodium (Chloride) 58 mls @ 116 mls/hr IV Q8H DONNELL Last Admin: 03/11/22 03:34 Dose: 116 mls/hr Documented By: MS Cefepime HCl 1 gm/ Sodium (Chloride) 100 mls @ 200 mls/hr IV Q12H DONNELL Azithromycin 500 mg/ Dextrose 250 mls @ 250 mls/hr IV Q24H [facility] Vancomycin HCl (Vancomycin) 1,250 mg in 250 mls @ 167 mls/hr IV Q12H DONNELL Ondansetron HCl (Ondansetron 4 Mg/2 Ml Inj) 4 mg IV Q8HR PRN PRN Reason: Nausea And Vomiting Vancomycin HCl (Vancomycin Per Pharmacy) 1 request MISC NOW ONE Stop: 03/11/22 01:05 Discontinued Medications Furosemide (Furosemide 40 Mg/4 Ml Vial) 40 mg IV NOW ONE Stop: 03/10/22 21:29 Last Admin: 03/10/22 22:02 Dose: 40 mg Documented By: ROBIN Lactated Ringer's (Lactated Ringers) 2,328 mls @ 776 mls/hr 30 ml/kg infuse over 3 hr (2328 ml) IV NOW ONE Stop: 03/11/22 00:01 Last Infusion: 03/10/22 23:31 Dose: 0 mls/hr Documented By: Admin: 03/10/22 21:58 Dose: 776 mls/hr Documented By: ROBIN Vancomycin HCl/Dextrose (Vancomycin) 2,000 mg in 400 mls @ 200 mls/hr IV NOW ONE Stop: 03/11/22 01:10 Last Admin: 03/11/22 04:10 Dose: 200 mls/hr Documented By: Cefepime HCl 2 gm/ Sodium (Chloride) 100 mls @ 200 mls/hr IV NOW ONE Stop: 03/10/22 23:11 Last Admin: 03/11/22 01:19 Dose: 200 mls/hr Documented By: Azithromycin 500 mg/ Dextrose 250 mls @ 250 mls/hr IV NOW ONE Stop: 03/10/22 23:11 Last Admin: 03/11/22 02:22 Dose: 250 mls/hr Documented By: Vital Signs Vital signs: Vital Signs - 8 hr 03/10/22 22:30 03/10/22 22:30 03/10/22 23:00 Pulse Rate 97 H 95 H Respiratory Rate 38 H 36 H Blood Pressure 172/109 H Pulse Oximetry 87 L 95 Oxygen Delivery Method Nasal Cannula Nasal Cannula Oxygen Flow Rate 4 4 03/10/22 23:01 03/10/22 23:01 Pulse Rate 86 Respiratory Rate 58 H Blood Pressure 157/65 H Pulse Oximetry 96 Oxygen Delivery Method Nasal Cannula Oxygen Flow Rate 4 MDM - SOB/Dyspnea Lab Data Result diagrams: 03/10/22 20:45 03/10/22 20:45 Labs: Lab Results 03/10/22 03/10/22 03/10/22 Range/Units 20:45 20:45 20:45 WBC 6.7 (4.5-11.0) X10^3/uL RBC 3.47 L (4.5-5.9) X10^6/uL Hgb 11.6 L (13.5-17.5) g/dL Hct 34.6 L (41-53) % MCV 99.8 (80-100) fL MCH 33.5 (26-34) PG MCHC 33.6 (30-36) % RDW 14.0 (11.6-14.8) % Plt Count 185 (150-400) X10^3/uL Neut % (Auto) 78.7 H (50-75) % Lymph % (Auto) 11.9 L (25-40) % [place] % (Auto) 7.2 (3-14) % Eos % (Auto) 1.7 L (2-4) % Baso % (Auto) 0.5 (0-2) % Neut # (Auto) 5200 (4911-8790) /uL Lymph # (Auto) 800 L (8472-7898) /uL [place] # (Auto) 500 (0-900) /uL Eos # (Auto) 100 (0-450) /uL Baso # (Auto) 0 (0-100) /uL PT 17.2 H (10.1-12.7) SECONDS INR 1.5 H (0.9-1.3) ABG pH (7.35-7.45) ABG pCO2 (35-45) mmHg ABG pO2 (80-100) mmHg ABG HCO3 (22-26) mmol/L ABG Total CO2 (21-31) mmol/L ABG O2 Saturation (95-100) % ABG Base Excess (-2-2) mmol/L FiO2 Sodium 144 (137-145) mmol/L Potassium 4.0 (3.4-5.1) mmol/L Chloride 107 (98-107) mmol/L Carbon Dioxide 31 (22-32) mmol/L BUN 29 H (9-20) mg/dL Creatinine 1.34 H (0.66-1.25) mg/dL Estimated GFR 56 L (>60) mL/min BUN/Creatinine Ratio 21.6 (6-22) Glucose 114 H (80-110) mg/dL Lactate (0.7-2.1) mmol/L Calcium 9.3 (8.4-10.2) mg/dL Total Bilirubin 0.8 (0.2-1.3) mg/dL AST 28 (17-59) IU/L ALT 19 (<50) IU/L Alkaline Phosphatase 77 (38-126) U/L Troponin I 0.038 H (0.01-0.034) ng/mL NT-Pro-B Natriuret Pep 3100 H (<125) pg/mL Total Protein 7.4 (6.3-8.2) g/dL Albumin 4.2 (3.5-5.0) g/dL Globulin 3.2 (1.7-4.1) g/dL Albumin/Globulin Ratio 1.3 (1.0-2.8) Procalcitonin (<0.5) ng/mL Chlamy pneumoniae PCR (Not Detect) Adenovirus (PCR) (Not Detect) B. pertussis DNA (PCR) (Not Detecte) B.parapertussis DNA PCR (Not Detecte) Coronavirus OC43 (PCR) (Not Detect) Coronavirus HKU1 (PCR) (Not Detect) Coronavirus 229E (PCR) (Not Detect) SARS-CoV-2 (PCR) (Not Detecte) Coronavirus NL63 (PCR) (Not Detect) Human Metapneumovir PCR (Not Detect) Influenza Type A (PCR) (Not Detect) Influenza Type B (PCR) (Not Detect) M. pneumoniae (PCR) (Not Detect) Parainfluenza 1 (PCR) (Not Detect) Parainfluenza 2 (PCR) (Not Detect) Parainfluenza 3 (PCR) (Not Detect) Parainfluenza 4 (PCR) (Not Detect) RSV (PCR) (Not Detect) Entero/Rhino (PCR) (Not Detect) 03/10/22 03/10/22 03/10/22 Range/Units 20:45 20:45 21:00 WBC (4.5-11.0) X10^3/uL RBC (4.5-5.9) X10^6/uL Hgb (13.5-17.5) g/dL Hct (41-53) % MCV (80-100) fL MCH (26-34) PG MCHC (30-36) % RDW (11.6-14.8) % Plt Count (150-400) X10^3/uL Neut % (Auto) (50-75) % Lymph % (Auto) (25-40) % [place] % (Auto) (3-14) % Eos % (Auto) (2-4) % Baso % (Auto) (0-2) % Neut # (Auto) (2617-0660) /uL Lymph # (Auto) (0743-9911) /uL [place] # (Auto) (0-900) /uL Eos # (Auto) (0-450) /uL Baso # (Auto) (0-100) /uL PT (10.1-12.7) SECONDS INR (0.9-1.3) ABG pH (7.35-7.45) ABG pCO2 (35-45) mmHg ABG pO2 (80-100) mmHg ABG HCO3 (22-26) mmol/L ABG Total CO2 (21-31) mmol/L ABG O2 Saturation (95-100) % ABG Base Excess (-2-2) mmol/L FiO2 Sodium (137-145) mmol/L Potassium (3.4-5.1) mmol/L Chloride (98-107) mmol/L Carbon Dioxide (22-32) mmol/L BUN (9-20) mg/dL Creatinine (0.66-1.25) mg/dL Estimated GFR (>60) mL/min BUN/Creatinine Ratio (6-22) Glucose (80-110) mg/dL Lactate 1.4 (0.7-2.1) mmol/L Calcium (8.4-10.2) mg/dL Total Bilirubin (0.2-1.3) mg/dL AST (17-59) IU/L ALT (<50) IU/L Alkaline Phosphatase (38-126) U/L Troponin I (0.01-0.034) ng/mL NT-Pro-B Natriuret Pep (<125) pg/mL Total Protein (6.3-8.2) g/dL Albumin (3.5-5.0) g/dL Globulin (1.7-4.1) g/dL Albumin/Globulin Ratio (1.0-2.8) Procalcitonin 0.14 (<0.5) ng/mL Chlamy pneumoniae PCR Not detected (Not Detect) Adenovirus (PCR) Not detected (Not Detect) B. pertussis DNA (PCR) Not detected (Not Detecte) B.parapertussis DNA PCR Not detected (Not Detecte) Coronavirus OC43 (PCR) Not detected (Not Detect) Coronavirus HKU1 (PCR) Not detected (Not Detect) Coronavirus 229E (PCR) Not detected (Not Detect) SARS-CoV-2 (PCR) Not detected (Not Detecte) Coronavirus NL63 (PCR) Not detected (Not Detect) Human Metapneumovir PCR Not detected (Not Detect) Influenza Type A (PCR) Not detected (Not Detect) Influenza Type B (PCR) Not detected (Not Detect) M. pneumoniae (PCR) Not detected (Not Detect) Parainfluenza 1 (PCR) Not detected (Not Detect) Parainfluenza 2 (PCR) Not detected (Not Detect) Parainfluenza 3 (PCR) Not detected (Not Detect) Parainfluenza 4 (PCR) Not detected (Not Detect) RSV (PCR) Not detected (Not Detect) Entero/Rhino (PCR) Not detected (Not Detect) 03/10/22 Range/Units 22:48 WBC (4.5-11.0) X10^3/uL RBC (4.5-5.9) X10^6/uL Hgb (13.5-17.5) g/dL Hct (41-53) % MCV (80-100) fL MCH (26-34) PG MCHC (30-36) % RDW (11.6-14.8) % Plt Count (150-400) X10^3/uL Neut % (Auto) (50-75) % Lymph % (Auto) (25-40) % [place] % (Auto) (3-14) % Eos % (Auto) (2-4) % Baso % (Auto) (0-2) % Neut # (Auto) (4671-7624) /uL Lymph # (Auto) (7059-9394) /uL [place] # (Auto) (0-900) /uL Eos # (Auto) (0-450) /uL Baso # (Auto) (0-100) /uL PT (10.1-12.7) SECONDS INR (0.9-1.3) ABG pH 7.30 L (7.35-7.45) ABG pCO2 61.0 H (35-45) mmHg ABG pO2 74 L (80-100) mmHg ABG HCO3 30 H (22-26) mmol/L ABG Total CO2 32 H (21-31) mmol/L ABG O2 Saturation 93 L (95-100) % ABG Base Excess 3.0 H (-2-2) mmol/L FiO2 38 Sodium (137-145) mmol/L Potassium (3.4-5.1) mmol/L Chloride (98-107) mmol/L Carbon Dioxide (22-32) mmol/L BUN (9-20) mg/dL Creatinine (0.66-1.25) mg/dL Estimated GFR (>60) mL/min BUN/Creatinine Ratio (6-22) Glucose (80-110) mg/dL Lactate (0.7-2.1) mmol/L Calcium (8.4-10.2) mg/dL Total Bilirubin (0.2-1.3) mg/dL AST (17-59) IU/L ALT (<50) IU/L Alkaline Phosphatase (38-126) U/L Troponin I (0.01-0.034) ng/mL NT-Pro-B Natriuret Pep (<125) pg/mL Total Protein (6.3-8.2) g/dL Albumin (3.5-5.0) g/dL Globulin (1.7-4.1) g/dL Albumin/Globulin Ratio (1.0-2.8) Procalcitonin (<0.5) ng/mL Chlamy pneumoniae PCR (Not Detect) Adenovirus (PCR) (Not Detect) B. pertussis DNA (PCR) (Not Detecte) B.parapertussis DNA PCR (Not Detecte) Coronavirus OC43 (PCR) (Not Detect) Coronavirus HKU1 (PCR) (Not Detect) Coronavirus 229E (PCR) (Not Detect) SARS-CoV-2 (PCR) (Not Detecte) Coronavirus NL63 (PCR) (Not Detect) Human Metapneumovir PCR (Not Detect) Influenza Type A (PCR) (Not Detect) Influenza Type B (PCR) (Not Detect) M. pneumoniae (PCR) (Not Detect) Parainfluenza 1 (PCR) (Not Detect) Parainfluenza 2 (PCR) (Not Detect) Parainfluenza 3 (PCR) (Not Detect) Parainfluenza 4 (PCR) (Not Detect) RSV (PCR) (Not Detect) Entero/Rhino (PCR) (Not Detect) Imaging Data Chest x-ray: Radiologist's Impression: Allergy/Adv: latex, [CAT/DOG DANDER], [DUST MITES], [MULTIPLE FOOD ALLERGIES], [GRASS,T] (More??) Close Chest X-Ray (Signed) Yousif Virgen - 03/10/22 Echocardiogram Ultrasound (Cancelled) 02/17/22 Chest X-Ray (Signed) Matt Izaguirre - 02/16/22 DI Result CC 02/10/22 Foot X-Ray (Signed) Merissa Carbajal - 11/22/21 Foot X-Ray (Signed) Merissa Carbajal - 11/22/21 Foot X-Ray (Signed) Sasha Zelaya - 10/22/21 DI Result CC 03/19/21 DI Result CC 03/19/21 DI Result CC 02/24/20 Chest X-Ray (Signed) Toby Prabhakar - 11/27/19 Abdomen/Pelvis CT (Signed) Yudy Casey - 11/19/19 Vascular Ultrasound (Signed) Yudy Casey - 10/17/17 Launch?[address] [address] XRay Report Signed Patient: Anderson Duarte MR#: [id number] : 1950 Acct:[id number] Age/Sex: 71 / M Date of Service: 03/10/22 Loc: 90B-1 Accession Number: [id number] ?? Procedure: XR chest 1V Ordering Provider: Nagi Mesa D.O. PROCEDURE:? XR CHEST 1V ? INDICATIONS:? Shortness of breath ? TECHNIQUE:? One view of the chest was acquired.? ? COMPARISON:? [facility], , XR CHEST 1V, 02/16/2022, 18:27. ? FINDINGS:? ? Surgical changes and devices:? None.? ? Lungs and pleura:? There are bilateral confluent perihilar opacities redemonstrated suggestive of consolidation.? Pulmonary vascular prominence is also present alejo ggestive of pulmonary edema.? There are small bilateral pleural effusions.? No pneumothorax. ? Mediastinum:? Mediastinal contours are unchanged.? Heart size is enlarged. ? Bones and chest wall:? No suspicious bony lesions.? Overlying soft tissues appear unremarkable.? ? IMPRESSION:? ? 1. Bilateral perihilar opacities suggestive of consolidation and pneumonia.? The differential includes confluent areas of pulmonary edema. ? 2. Pulmonary edema, small pleural effusions, and cardiomegaly suggestive of congestive heart failure.? ? Dictated by: Yousif Virgen M.D. on 03/10/2022 at 23:19 ? ? Approved by: Yousif Virgen M.D. on 03/10/2022 at 23:22 ? Discharge Plan Departure Patient Disposition: Admitted As Inpatient Clinical Impression: Shortness of breath, CHF (congestive heart failure), Acute hypoxemic r espiratory failure, Pneumonia Admit Date/Time: 03/10/22 23:25 Admit Provider: Claude Mason
[2022-03-10 21:07] LABS: Add Manual Diff / Slide Review NO; Basophils Absolute Auto 0 /uL (0-100); Basophils Percent Auto 0.5 % (0-2); Eosinophils Absolute Auto 100 /uL (0-450); Eosinophils Percent Auto 1.7 % (2-4); Hematocrit 34.6 % (41-53); Hemoglobin 11.6 g/dL (13.5-17.5); INR 1.5 (0.9-1.3); Lymphocytes Absolute Auto 800 /uL (1100-4500); Lymphocytes Percent Auto 11.9 % (25-40); Mean Corpuscular HGB Conc 33.6 % (30-36); Mean Corpuscular Hemoglobin 33.5 PG (26-34); Mean Corpuscular Volume 99.8 fL (80-100); Monocytes Absolute Auto 500 /uL (0-900); Monocytes Percent Auto 7.2 % (3-14); Neutrophils Absolute Auto 5200 /uL (1500-7000); Neutrophils Percent Auto 78.7 % (50-75); Platelet Count 185 X10^3/uL (150-400); Prothrombin Time 17.2 SECONDS (10.1-12.7); Red Blood Cell Count 3.47 X10^6/uL (4.5-5.9); White Blood Cell Count 6.7 X10^3/uL (4.5-11.0)
[2022-03-10 21:11] LABS: Lactate (Lactic Acid) 1.4 mmol/L (0.7-2.1)
[2022-03-10 21:12] LABS: Alanine Aminotransferase 19 IU/L (<50); Albumin 4.2 g/dL (3.5-5.0); Albumin Globulin Ratio 1.3 (1.0-2.8); Alkaline Phosphatase 77 U/L (38-126); Aspartate Aminotransferase 28 IU/L (17-59); BUN Creatinine Ratio 21.6 (6-22); Bilirubin Total 0.8 mg/dL (0.2-1.3); Blood Urea Nitrogen 29 mg/dL (9-20); Calcium 9.3 mg/dL (8.4-10.2); Carbon Dioxide 31 mmol/L (22-32); Chloride 107 mmol/L (98-107); Estimated Glomerular Filt Rate 56 mL/min (>60); Globulin 3.2 g/dL (1.7-4.1); Glucose 114 mg/dL (80-110); HEMOLYSIS 21 (0-50); Sodium 144 mmol/L (137-145); Total Protein 7.4 g/dL (6.3-8.2)
[2022-03-10 21:24] LABS: NT-proBNP (BNP-Adult 18+) 3100 pg/mL (<125); Troponin I 0.038 ng/mL (0.01-0.034)
[2022-03-10] MEDS: LACTATED RINGERS 2,328 ML 776 ML IV (21:58)
[2022-03-10 22:00] LABS: Adenovirus Not Detected (Not Detect); B. parapertussis Not Detected (Not Detecte); Bordetella pertussis Not Detected (Not Detecte); Chlamydophila pneumoniae Not Detected (Not Detect); Coronavirus 229E Not Detected (Not Detect); Coronavirus HKU1 Not Detected (Not Detect); Coronavirus NL 63 Not Detected (Not Detect); Coronavirus OC43 Not Detected (Not Detect); Human Metapneumovirus Not Detected (Not Detect); Human Rhinovirus/Enterovirus Not Detected (Not Detect); Influenza A Not Detected (Not Detect); Influenza B Not Detected (Not Detect); Mycoplasma pneumoniae Not Detected (Not Detect); Parainfluenza Virus 1 Not Detected (Not Detect); Parainfluenza Virus 2 Not Detected (Not Detect); Parainfluenza Virus 3 Not Detected (Not Detect); Parainfluenza Virus 4 Not Detected (Not Detect); Respiratory Syncytial Virus Not Detected (Not Detect); SARS- CoV-2 Not Detected (Not Detecte)
[2022-03-10] MEDS: FUROSEMIDE 40 MG/4 ML VIAL IV (22:02)
[2022-03-10 23:30] LABS: HCO3 ABG 30 mmol/L (22-26); Oxygen Saturation ABG 93 % (95-100); PO2 ABG 74 mmHg (80-100); TCO2 ABG 32 mmol/L (21-31)
[2022-03-10 23:31] LABS: Fractionated Inspired Oxygen 38
[2022-03-10 23:44] LABS: Procalcitonin 0.14 ng/mL (<0.5)
[2022-03-11] VITALS (45 sets, daily range): BP systolic 100–159; BP diastolic 57–90; PULSE 51–133; RESP 12–55; TEMP 31.7–37; O2SAT 86–99
--- NOTE | 2022-03-11 00:23 | PC.NURSE ---
Report called to [facility]. Questions answered. Pt transported to 218 via stretcher
[2022-03-11] MEDS: CEFEPIME 2 GM in SODIUM CHLORIDE 0.9% 100 ML IV (01:19)
[2022-03-11] MEDS: AZITHROMYCIN 500 MG in DEXTROSE 5% IN WATER 250 ML 250 MG IV ×2 (02:22→22:30)
[2022-03-11] MEDS: FUROSEMIDE 80 MG in SODIUM CHLORIDE 0.9% 50 ML 116 MG IV (03:34)
[2022-03-11] MEDS: VANCOMYCIN 2,000 MG/400 ML PIGGYBACK 200 MG IV (04:10)
[2022-03-11] MEDS: ALBUTEROL 2.5 MG/3 ML NEB (ADULT) INH (04:33)
--- NOTE | 2022-03-11 05:05 | P.HP_ITS ---
History of Present Illness History of Present Illness Date Patient Seen: 03/10/22 Time Patient Seen: 23:30 Chief complaint: cough- fever Narrative: Mr. Duarte is a 71M with PMH afib, DVT, CAROL, CHF who presents to the hospital with cough and shortness of breath. He has a productive cough with green sputum that has been worsening over the last day. He has also noted no fevers/chills. He has some chest pain with coughing. He is not sure if there is any increase in p eripheral edema. He has no sick contacts at home. He was recently in the hospital with similar complaints and diagnosed with pneumonia and CHF and discharged with antibiotics and after diuresis. His ECHO showed EF 30-35% with RV dilation also noted. He called EMS who found him sats in the 80s and placed him on 3L oxygen. In the ED workup was done, vitals notable for tachypnea. He was continued on 4L of oxygen. Labs notable for WBC 6.7, hgb 11.6. Creatinine 1.34. ABG 7.3, pco2 61, pao2 74. Trop 0.038, BNP 3100. Procal 0.14. Respiratory pcr panel negative. Chest xray showed bilateral opacities, additionally noted pulmonary edema, pleural effusions and cardiomegaly. He was initially thought to be septic and started on aggresive fluid resuscitation but this was stopped with further workup and he was then ordered for lasix. He was ordered for antibiotics and admitted for further treatment. Family history: siblings with diabetes Patient History Medical History Atrial fibrillation (~2014) Chicken pox (~1959) Chronic back pain (~2009) Deep vein thrombosis (~1989) Foot pain (~1989) Fractures (~1989) Hearing loss Irritable bowel syndrome (~2014) Low testosterone (~1989) Measles (~1959) Pneumonia Sleep apnea (~1989) Vision disorder Surgical History Anesthesia [place] filter in place (~1992) History of back surgery History of surgery (~2015) History of tonsillectomy Family & Social History Social History: household members spouse Safety & Behavioral: Feels Safe in Current Yes Environment Been Physically Hurt or No Threatened By a Person Tobacco & Substance use: Smoking Status Never smoker alcohol intake current alcohol intake frequency 0-2 drinks per day Substance Use Type does not use Meds Home Medications and Allergies Home Medications Medication Instructions Recorded Confirmed Type apixaban 5 mg tablet (Eliquis) 5 mg PO BID #180 tabs 10/14/21 03/08/22 Rx carvedilol 6.25 mg tablet 6.25 mg PO BID #180 tabs 10/14/21 03/08/22 Rx fluticasone propionate 50 1 spray intranasal BID 10/14/21 03/08/22 History mcg/actuation nasal spray,suspension (Flonase Allergy Relief) gabapentin 300 mg capsule 300 mg PO QD-BID #180 caps 10/14/21 03/08/22 Rx omeprazole 20 mg capsule,delayed 20 mg PO DAILY #90 caps 10/14/21 03/08/22 Rx release furosemide 20 mg tablet 20 mg PO BID #180 tabs 01/28/22 03/08/22 Rx terazosin 10 mg capsule 10 mg PO BEDTIME #90 caps 01/28/22 03/08/22 Rx multivitamin with minerals-folic 1 tab PO DAILY 02/17/22 03/08/22 History acid 0.4 mg tablet cefdinir 300 mg capsule 300 mg PO Q12H #10 caps 02/20/22 03/08/22 Rx loperamide 2 mg capsule 2 mg PO QID PRN Diarrhea #10 caps 02/20/22 03/08/22 Rx albuterol sulfate 90 mcg/actuation 1 puff inhalation Q2-4H PRN 03/03/22 03/08/22 Rx aerosol inhaler shortness of breath or wheezing #6.7 grams Allergies Allergy/AdvReac Type Severity Reaction Status Date / Time latex [LATEX] Allergy Intermediate Verified 03/10/22 20:57 CAT/DOG DANDER Allergy Intermediate WATERY,ITCHY Uncoded 03/08/22 15:10 EYES,COUGHING/SNEEZING FITS DUST MITES Allergy Intermediate WATERY/ITCHY Uncoded 03/08/22 15:10 EYES,COUGH,SNEEZING MULTIPLE FOOD ALLERGIES Allergy Intermediate STOMACH Uncoded 03/08/22 15:10 CRAMPS,DIARRHEA GRASS,T Allergy Unknown WATERY Uncoded 03/08/22 15:10 EYES,COUGHING/SNEEZING Review of Systems Review of Systems Narrative: 14 systems reviewed and negative aside from what is noted in HPI Exam Vital Signs (past 8 hours): - 03/10/22 20:57 03/10/22 20:53 03/10/22 20:53 Temperature 98.0 F Pulse Rate 88 115 H Respiratory Rate 30 H 17 Blood Pressure 193/84 H 203/101 H Pulse Oximetry 95 89 L Oxygen Delivery Method Room Air Nasal Cannula Oxygen Flow Rate 4 Fraction of Inspired Oxygen 03/10/22 20:56 03/10/22 20:56 03/10/22 21:00 Temperature Pulse Rate 90 85 Respiratory Rate 3 L 36 H Blood Pressure 193/84 H Pulse Oximetry 92 91 Oxygen Delivery Method Nasal Cannula Nasal Cannula Oxygen Flow Rate 4 4 Fraction of Inspired Oxygen 03/10/22 21:01 03/10/22 21:01 03/10/22 21:30 Temperature Pulse Rate 88 82 Respiratory Rate 33 H 34 H Blood Pressure 189/114 H Pulse Oximetry 92 94 Oxygen Delivery Method Nasal Cannula Nasal Cannula Oxygen Flow Rate 4 4 Fraction of Inspired Oxygen 03/10/22 21:31 03/10/22 21:31 03/10/22 22:00 Temperature Pulse Rate 83 83 Respiratory Rate 30 H 32 H Blood Pressure 169/95 H Pulse Oximetry 93 92 Oxygen Delivery Method Nasal Cannula Nasal Cannula Oxygen Flow Rate 4 4 Fraction of Inspired Oxygen 03/10/22 22:01 03/10/22 22:01 03/10/22 22:30 Temperature Pulse Rate 83 Respiratory Rate 35 H Blood Pressure 154/98 H 172/109 H Pulse Oximetry 92 Oxygen Delivery Method Nasal Cannula Oxygen Flow Rate 4 Fraction of Inspired Oxygen 03/10/22 22:30 03/10/22 23:00 03/10/22 23:01 Temperature Pulse Rate 97 H 95 H 86 Respiratory Rate 38 H 36 H 58 H Blood Pressure Pulse Oximetry 87 L 95 96 Oxygen Delivery Method Nasal Cannula Nasal Cannula Nasal Cannula Oxygen Flow Rate 4 4 4 Fraction of Inspired Oxygen 03/10/22 23:01 03/11/22 00:24 03/10/22 23:30 Temperature Pulse Rate 87 Respiratory Rate 34 H Blood Pressure 157/65 H Pulse Oximetry 96 Oxygen Delivery Method Nasal Cannula Oxygen Flow Rate 4 Fraction of Inspired Oxygen 03/10/22 23:31 03/10/22 23:31 03/11/22 00:00 Temperature Pulse Rate 87 81 Respiratory Rate 50 H 55 H Blood Pressure 141/67 H Pulse Oximetry 97 97 Oxygen Delivery Method Oxygen Flow Rate Fraction of Inspired Oxygen 03/11/22 00:01 03/11/22 00:01 03/11/22 00:16 Temperature Pulse Rate 80 65 Respiratory Rate 37 H 24 Blood Pressure 115/58 L Pulse Oximetry 96 99 Oxygen Delivery Method Nasal Cannula Oxygen Flow Rate 4 Fraction of Inspired Oxygen 36 Fraction of Inspired Oxygen 36 SaO2/FiO2 Ratio 275 Oxygen Delivery Method Nasal Cannula Oxygen Flow Rate 4 Narrative Exam Narrative: GEN: ill appearing, in respiratory distress HEENT: moist mucous membranes, PERRL NECK: trachea midline, no JVD CV: irregular, no murmurs PULM: coarse breath sounds bilaterally with faint crackles, increased work of breathing ABD: soft, nontender, nondistended, no organomegaly EXT: warm and well perfused with mild edema NEURO: awake, alert, oriented, no focal deficits Objective Labs Result Diagrams: 03/10/22 20:45 03/10/22 20:45 Labs: Laboratory Results - last 24 hr 03/10/22 03/10/22 03/10/22 20:45 20:45 20:45 WBC 6.7 RBC 3.47 L Hgb 11.6 L Hct 34.6 L MCV 99.8 MCH 33.5 MCHC 33.6 RDW 14.0 Plt Count 185 Neut % (Auto) 78.7 H Lymph % (Auto) 11.9 L Simpson % (Auto) 7.2 Eos % (Auto) 1.7 L Baso % (Auto) 0.5 Neut # (Auto) 5200 Lymph # (Auto) 800 L Simpson # (Auto) 500 Eos # (Auto) 100 Baso # (Auto) 0 PT 17.2 H INR 1.5 H ABG pH ABG pCO2 ABG pO2 ABG HCO3 ABG Total CO2 ABG O2 Saturation ABG Base Excess FiO2 Sodium 144 Potassium 4.0 Chloride 107 Carbon Dioxide 31 BUN 29 H Creatinine 1.34 H Estimated GFR 56 L BUN/Creatinine Ratio 21.6 Glucose 114 H Lactate Calcium 9.3 Total Bilirubin 0.8 AST 28 ALT 19 Alkaline Phosphatase 77 Troponin I 0.038 H NT-Pro-B Natriuret Pep 3100 H Total Protein 7.4 Albumin 4.2 Globulin 3.2 Albumin/Globulin Ratio 1.3 Procalcitonin Chlamy pneumoniae PCR Adenovirus (PCR) B. pertussis DNA (PCR) B.parapertussis DNA PCR Coronavirus OC43 (PCR) Coronavirus HKU1 (PCR) Coronavirus 229E (PCR) SARS-CoV-2 (PCR) Coronavirus NL63 (PCR) Human Metapneumovir PCR Influenza Type A (PCR) Influenza Type B (PCR) M. pneumoniae (PCR) Parainfluenza 1 (PCR) Parainfluenza 2 (PCR) Parainfluenza 3 (PCR) Parainfluenza 4 (PCR) RSV (PCR) Entero/Rhino (PCR) 03/10/22 03/10/22 03/10/22 20:45 20:45 21:00 WBC RBC Hgb Hct MCV MCH MCHC RDW Plt Count Neut % (Auto) Lymph % (Auto) Simpson % (Auto) Eos % (Auto) Baso % (Auto) Neut # (Auto) Lymph # (Auto) Simpson # (Auto) Eos # (Auto) Baso # (Auto) PT INR ABG pH ABG pCO2 ABG pO2 ABG HCO3 ABG Total CO2 ABG O2 Saturation ABG Base Excess FiO2 Sodium Potassium Chloride Carbon Dioxide BUN Creatinine Estimated GFR BUN/Creatinine Ratio Glucose Lactate 1.4 Calcium Total Bilirubin AST ALT Alkaline Phosphatase Troponin I NT-Pro-B Natriuret Pep Total Protein Albumin Globulin Albumin/Globulin Ratio Procalcitonin 0.14 Chlamy pneumoniae PCR Not detected Adenovirus (PCR) Not detected B. pertussis DNA (PCR) Not detected B.parapertussis DNA PCR Not detected Coronavirus OC43 (PCR) Not detected Coronavirus HKU1 (PCR) Not detected Coronavirus 229E (PCR) Not detected SARS-CoV-2 (PCR) Not detected Coronavirus NL63 (PCR) Not detected Human Metapneumovir PCR Not detected Influenza Type A (PCR) Not detected Influenza Type B (PCR) Not detected M. pneumoniae (PCR) Not detected Parainfluenza 1 (PCR) Not detected Parainfluenza 2 (PCR) Not detected Parainfluenza 3 (PCR) Not detected Parainfluenza 4 (PCR) Not detected RSV (PCR) Not detected Entero/Rhino (PCR) Not detected 03/10/22 22:48 WBC RBC Hgb Hct MCV MCH MCHC RDW Plt Count Neut % (Auto) Lymph % (Auto) Simpson % (Auto) Eos % (Auto) Baso % (Auto) Neut # (Auto) Lymph # (Auto) Simpson # (Auto) Eos # (Auto) Baso # (Auto) PT INR ABG pH 7.30 L ABG pCO2 61.0 H ABG pO2 74 L ABG HCO3 30 H ABG Total CO2 32 H ABG O2 Saturation 93 L ABG Base Excess 3.0 H FiO2 38 Sodium Potassium Chloride Carbon Dioxide BUN Creatinine Estimated GFR BUN/Creatinine Ratio Glucose Lactate Calcium Total Bilirubin AST ALT Alkaline Phosphatase Troponin I NT-Pro-B Natriuret Pep Total Protein Albumin Globulin Albumin/Globulin Ratio Procalcitonin Chlamy pneumoniae PCR Adenovirus (PCR) B. pertussis DNA (PCR) B.parapertussis DNA PCR Coronavirus OC43 (PCR) Coronavirus HKU1 (PCR) Coronavirus 229E (PCR) SARS-CoV-2 (PCR) Coronavirus NL63 (PCR) Human Metapneumovir PCR Influenza Type A (PCR) Influenza Type B (PCR) M. pneumoniae (PCR) Parainfluenza 1 (PCR) Parainfluenza 2 (PCR) Parainfluenza 3 (PCR) Parainfluenza 4 (PCR) RSV (PCR) Entero/Rhino (PCR) Assessment & Plan Assessment & Plan narrative: 1. Acute hypoxemic respiratory failure secondary to probable CHF exacerbation, and possible pneumonia -patient with cough, sputum production possibly with pneumonia -was just hospitalized so cover broadly with vanc, cefepime, azithro -respratory panel PCR negative -BNP elevated, and troponin indeterminate -trend troponins -appears volume overloaded and has known EF of 30-35% -start lasix, fluid restrction, low salt diet with goal 2-3L net negative -check D-dimer -consider lung perfusion scan to rule out DVT, though this is lower on differential, and may be difficult to rule out with opacities on xray, may need CTA chest if not improved 2. Atrial fibrillation -hold coreg for now -continue apixaban 3. CAROL -continue CPAP 4. History of DVT -continue apixaban 5. CKD stage 2 -monitor creatinine, creatinine appears at baseline CODE: Full Proxy: Kennedi Duarte, spouse I have utilized all available resources to reconcile the patient's home medications Time Spent With Patient Critical Care time: I spent a total of [] minutes of critical care time on this patient's care today; this time is exclusive of procedural time.
[2022-03-11 05:36] LABS: Magnesium 1.7 mg/dL (1.6-2.3)
[2022-03-11 05:42] LABS: HCO3 ABG 32 mmol/L (22-26); PCO2 ABG 58.6 mmHg (35-45); PO2 ABG 76 mmHg (80-100); pH ABG 7.35 (7.35-7.45)
[2022-03-11 05:43] LABS: Fractionated Inspired Oxygen 50; Oxygen Saturation ABG 94 % (95-100); TCO2 ABG 34 mmol/L (21-31)
--- NOTE | 2022-03-11 06:05 | PM.PN.1 ---
Subjective Subjective Date Patient Seen: 03/11/22 Time Patient Seen: 05:00 Interval history: He had increasing shortness of breath, higher oxygen needs, increased work of breathing. He was placed on BIPAP. Exam Vital Signs (past 8 hours): - 03/10/22 22:30 03/10/22 22:30 03/10/22 23:00 Temperature Pulse Rate 97 H 95 H Respiratory Rate 38 H 36 H Blood Pressure 172/109 H Pulse Oximetry 87 L 95 Oxygen Delivery Method Nasal Cannula Nasal Cannula Oxygen Flow Rate 4 4 Fraction of Inspired Oxygen 03/10/22 23:01 03/10/22 23:01 03/11/22 00:24 Temperature Pulse Rate 86 Respiratory Rate 58 H Blood Pressure 157/65 H Pulse Oximetry 96 Oxygen Delivery Method Nasal Cannula Nasal Cannula Oxygen Flow Rate 4 4 Fraction of Inspired Oxygen 03/10/22 23:30 03/10/22 23:31 03/10/22 23:31 Temperature Pulse Rate 87 87 Respiratory Rate 34 H 50 H Blood Pressure 141/67 H Pulse Oximetry 96 97 Oxygen Delivery Method Oxygen Flow Rate Fraction of Inspired Oxygen 03/11/22 00:00 03/11/22 00:01 03/11/22 00:01 Temperature Pulse Rate 81 80 Respiratory Rate 55 H 37 H Blood Pressure 115/58 L Pulse Oximetry 97 96 Oxygen Delivery Method Oxygen Flow Rate Fraction of Inspired Oxygen 03/11/22 00:16 03/11/22 01:10 03/10/22 23:31 Temperature 97.7 F Pulse Rate 65 90 Respiratory Rate 24 32 H Blood Pressure 159/90 H Pulse Oximetry 99 95 Oxygen Delivery Method Nasal Cannula Nasal Cannula Oxygen Flow Rate 4 4 Fraction of Inspired Oxygen 36 03/11/22 01:04 03/11/22 04:00 03/11/22 04:25 Temperature 97.7 F 97.8 F Pulse Rate 51 L 91 H Respiratory Rate 16 29 H Blood Pressure 153/89 H Pulse Oximetry 97 98 86 L Oxygen Delivery Method Nasal Cannula Oxygen Flow Rate 4 4 5 Fraction of Inspired Oxygen 03/11/22 04:45 03/11/22 04:45 Temperature Pulse Rate 101 H Respiratory Rate 28 H Blood Pressure Pulse Oximetry 98 Oxygen Delivery Method Oxygen Flow Rate 15 Fraction of Inspired Oxygen 50 Fraction of Inspired Oxygen 50 SaO2/FiO2 Ratio 275 Oxygen Delivery Method Nasal Cannula Oxygen Flow Rate 15 Narrative Exam Narrative: GEN: ill appearing, in respiratory distress HEENT: moist mucous membranes, PERRL NECK: trachea midline, no JVD CV: irregular, no murmurs PULM: coarse breath sounds bilaterally with faint crackles, increased work of breathing ABD: soft, nontender, nondistended, no organomegaly EXT: warm and well perfused with mild edema NEURO: awake, alert, oriented, no focal deficits Objective Labs Result Diagrams: 03/10/22 20:45 03/10/22 20:45 Labs: Laboratory Results - last 24 hr 03/10/22 03/10/22 03/10/22 20:45 20:45 20:45 WBC 6.7 RBC 3.47 L Hgb 11.6 L Hct 34.6 L MCV 99.8 MCH 33.5 MCHC 33.6 RDW 14.0 Plt Count 185 Neut % (Auto) 78.7 H Lymph % (Auto) 11.9 L Williams % (Auto) 7.2 Eos % (Auto) 1.7 L Baso % (Auto) 0.5 Neut # (Auto) 5200 Lymph # (Auto) 800 L Williams # (Auto) 500 Eos # (Auto) 100 Baso # (Auto) 0 PT 17.2 H INR 1.5 H ABG pH ABG pCO2 ABG pO2 ABG HCO3 ABG Total CO2 ABG O2 Saturation ABG Base Excess FiO2 Sodium 144 Potassium 4.0 Chloride 107 Carbon Dioxide 31 BUN 29 H Creatinine 1.34 H Estimated GFR 56 L BUN/Creatinine Ratio 21.6 Glucose 114 H Lactate Calcium 9.3 Magnesium Total Bilirubin 0.8 AST 28 ALT 19 Alkaline Phosphatase 77 Troponin I 0.038 H NT-Pro-B Natriuret Pep 3100 H Total Protein 7.4 Albumin 4.2 Globulin 3.2 Albumin/Globulin Ratio 1.3 Procalcitonin Chlamy pneumoniae PCR Adenovirus (PCR) B. pertussis DNA (PCR) B.parapertussis DNA PCR Coronavirus OC43 (PCR) Coronavirus HKU1 (PCR) Coronavirus 229E (PCR) SARS-CoV-2 (PCR) Coronavirus NL63 (PCR) Human Metapneumovir PCR Influenza Type A (PCR) Influenza Type B (PCR) M. pneumoniae (PCR) Parainfluenza 1 (PCR) Parainfluenza 2 (PCR) Parainfluenza 3 (PCR) Parainfluenza 4 (PCR) RSV (PCR) Entero/Rhino (PCR) 12/08/22 12/08/22 12/08/22 20:45 20:45 21:00 WBC RBC Hgb Hct MCV MCH MCHC RDW Plt Count Neut % (Auto) Lymph % (Auto) Williams % (Auto) Eos % (Auto) Baso % (Auto) Neut # (Auto) Lymph # (Auto) Williams # (Auto) Eos # (Auto) Baso # (Auto) PT INR ABG pH ABG pCO2 ABG pO2 ABG HCO3 ABG Total CO2 ABG O2 Saturation ABG Base Excess FiO2 Sodium Potassium Chloride Carbon Dioxide BUN Creatinine Estimated GFR BUN/Creatinine Ratio Glucose Lactate 1.4 Calcium Magnesium Total Bilirubin AST ALT Alkaline Phosphatase Troponin I NT-Pro-B Natriuret Pep Total Protein Albumin Globulin Albumin/Globulin Ratio Procalcitonin 0.14 Chlamy pneumoniae PCR Not detected Adenovirus (PCR) Not detected B. pertussis DNA (PCR) Not detected B.parapertussis DNA PCR Not detected Coronavirus OC43 (PCR) Not detected Coronavirus HKU1 (PCR) Not detected Coronavirus 229E (PCR) Not detected SARS-CoV-2 (PCR) Not detected Coronavirus NL63 (PCR) Not detected Human Metapneumovir PCR Not detected Influenza Type A (PCR) Not detected Influenza Type B (PCR) Not detected M. pneumoniae (PCR) Not detected Parainfluenza 1 (PCR) Not detected Parainfluenza 2 (PCR) Not detected Parainfluenza 3 (PCR) Not detected Parainfluenza 4 (PCR) Not detected RSV (PCR) Not detected Entero/Rhino (PCR) Not detected 03/10/22 03/11/22 03/11/22 22:48 04:55 04:55 WBC RBC Hgb Hct MCV MCH MCHC RDW Plt Count Neut % (Auto) Lymph % (Auto) Williams % (Auto) Eos % (Auto) Baso % (Auto) Neut # (Auto) Lymph # (Auto) Williams # (Auto) Eos # (Auto) Baso # (Auto) PT INR ABG pH 7.30 L ABG pCO2 61.0 H ABG pO2 74 L ABG HCO3 30 H ABG Total CO2 32 H ABG O2 Saturation 93 L ABG Base Excess 3.0 H FiO2 38 Sodium Cancelled Potassium Cancelled Chloride Cancelled Carbon Dioxide Cancelled BUN Cancelled Creatinine Cancelled Estimated GFR Cancelled BUN/Creatinine Ratio Cancelled Glucose Cancelled Lactate Calcium Cancelled Magnesium 1.7 Total Bilirubin AST ALT Alkaline Phosphatase Troponin I NT-Pro-B Natriuret Pep Total Protein Albumin Globulin Albumin/Globulin Ratio Procalcitonin Chlamy pneumoniae PCR Adenovirus (PCR) B. pertussis DNA (PCR) B.parapertussis DNA PCR Coronavirus OC43 (PCR) Coronavirus HKU1 (PCR) Coronavirus 229E (PCR) SARS-CoV-2 (PCR) Coronavirus NL63 (PCR) Human Metapneumovir PCR Influenza Type A (PCR) Influenza Type B (PCR) M. pneumoniae (PCR) Parainfluenza 1 (PCR) Parainfluenza 2 (PCR) Parainfluenza 3 (PCR) Parainfluenza 4 (PCR) RSV (PCR) Entero/Rhino (PCR) 03/11/22 05:05 WBC RBC Hgb Hct MCV MCH MCHC RDW Plt Count Neut % (Auto) Lymph % (Auto) Williams % (Auto) Eos % (Auto) Baso % (Auto) Neut # (Auto) Lymph # (Auto) Williams # (Auto) Eos # (Auto) Baso # (Auto) PT INR ABG pH 7.35 ABG pCO2 58.6 H ABG pO2 76 L ABG HCO3 32 H ABG Total CO2 34 H ABG O2 Saturation 94 L ABG Base Excess 7.0 H FiO2 50 Sodium Potassium Chloride Carbon Dioxide BUN Creatinine Estimated GFR BUN/Creatinine Ratio Glucose Lactate Calcium Magnesium Total Bilirubin AST ALT Alkaline Phosphatase Troponin I NT-Pro-B Natriuret Pep Total Protein Albumin Globulin Albumin/Globulin Ratio Procalcitonin Chlamy pneumoniae PCR Adenovirus (PCR) B. pertussis DNA (PCR) B.parapertussis DNA PCR Coronavirus OC43 (PCR) Coronavirus HKU1 (PCR) Coronavirus 229E (PCR) SARS-CoV-2 (PCR) Coronavirus NL63 (PCR) Human Metapneumovir PCR Influenza Type A (PCR) Influenza Type B (PCR) M. pneumoniae (PCR) Parainfluenza 1 (PCR) Parainfluenza 2 (PCR) Parainfluenza 3 (PCR) Parainfluenza 4 (PCR) RSV (PCR) Entero/Rhino (PCR) [facility] Medical History Atrial fibrillation (~2014) Chicken pox (~1959) Chronic back pain (~2009) Deep vein thrombosis (~1989) Foot pain (~1989) Fractures (~1989) Hearing loss Irritable bowel syndrome (~2014) Low testosterone (~1989) Measles (~1959) Pneumonia Sleep apnea (~1989) Vision disorder Surgical History Anesthesia [place] filter in place (~1992) History of back surgery History of surgery (~2015) History of tonsillectomy Social History household members: spouse Smoking Status: Never smoker alcohol intake: current Assessment & Plan Assessment & Plan narrative: 1. Acute hypoxemic respiratory failure secondary to probable CHF exacerbation, and possible pneumonia -patient with cough, sputum production possibly with pneumonia -was just hospitalized so cover broadly with vanc, cefepime, azithro -respratory panel PCR negative -BNP elevated, and troponin indeterminate -trend troponins -appears volume overloaded and has known EF of 30-35% -lasix, fluid restriction, low salt diet with goal 2-3L net negative -check D-dimer, has been on apixaban so doubt PE 2. Atrial fibrillation -hold coreg for now -continue apixaban 3. CAROL -continue CPAP 4. History of DVT -continue apixaban 5. CKD stage 2 -monitor creatinine, creatinine appears at baseline He is transferred to the ICU with circuit court clerk consult for increased work of breathing requiring BIPAP. CODE: Full Proxy: Kennedi Duarte, spouse I have utilized all available resources to reconcile the patient's home medications Time Spent With Patient Critical Care time: I spent a total of [] minutes of critical care time on this patient's care today; this time is exclusive of procedural time.
[2022-03-11 06:06] LABS: Alanine Aminotransferase 17 IU/L (<50); Albumin 3.6 g/dL (3.5-5.0); Albumin Globulin Ratio 1.2 (1.0-2.8); Alkaline Phosphatase 76 U/L (38-126); Aspartate Aminotransferase 39 IU/L (17-59); BUN Creatinine Ratio 21.1 (6-22); Bilirubin Total 0.9 mg/dL (0.2-1.3); Blood Urea Nitrogen 27 mg/dL (9-20); Calcium 8.9 mg/dL (8.4-10.2); Carbon Dioxide 30 mmol/L (22-32); Chloride 104 mmol/L (98-107); Estimated Glomerular Filt Rate 59 mL/min (>60); Globulin 3.1 g/dL (1.7-4.1); Glucose 120 mg/dL (80-110); HEMOLYSIS < 15 (0-50); Potassium 3.9 mmol/L (3.4-5.1); Sodium 141 mmol/L (137-145); Total Protein 6.7 g/dL (6.3-8.2)
[2022-03-11 06:07] LABS: Magnesium 1.8 mg/dL (1.6-2.3); Phosphorous 4.1 mg/dL (2.3-3.7)
[2022-03-11 06:18] LABS: Troponin I 0.113 ng/mL (0.01-0.034)
--- NOTE | 2022-03-11 06:30 | P.TELICUCN_ITS ---
History of Present Illness Consult details IF CAMERA ACTIVATED, patient seen via real-time interactive audiovisual communication: Camera activated Chief complaint: cough- fever Consent obtained for tele-orthotic aide care: Yes Patient Location: ICU Provider location (State): Other participants/roles: RN Narrative: Mr. Duarte is a 71M with medical history of afib, DVT, on Eliquis, CAROL, CHF with EF 30-35 who presents to the hospital with productive cough with greenish sputum, shortness of breath and worsening LE swelling. no fevers, chills, pt was found hypoxic ?sats in the 80s and placed him on 3L oxygen. In ED received fluid initially then Lasix as his Chest xray showed bilateral opacities, pulmonary edema, pleural effusions and cardiomegaly. On the floor he was working to breathe, and increasing O2 requirement so he was placed on BiPAP and transferred to ICU. He was recently in the hospital with similar complaints and diagnosed with pneumonia and CHF. Last Echo: Moderate global hypokinesis of the left ventricle.? Severely dilated right ventricle.? RV systolic pressure is elevated to at least 59 mmHg.? Moderate mitral regurgitation, moderate tricuspid regurgitation were noted. Assessment: Acute hypoxic respiratory failure, multifactorial 2/2 the below probelms Acute on chronic systolic CHF Pul edema ? Recurrent PNA CKD stage III witn baseline Cr around 1.3 Permanent atrial fibrillation, chronic, on apixaban Obstructive sleep apnea on CPAP History of DVT Pulmonary artery hypertension Moderate mitral regurgitation Moderate tricuspid regurgitation Recommendation Continue BiPAP at the current sitting 15/08/49 IV diuresis Lasix 80 mg Q8H, strict I/O , goal 2 L negative daily/ adjust diuretics based on that. Fluid restriction to 1 L daily BMP bid and Mag daily, replace electrolytes as needed Continue VAnc , Cefepime and Azithromycin ( check QTC and switch to Doxy if prolonged), f/u resp and blood Cx and de esacalate as appropriate Pharmacy to manage Vanc dosing CT Chest w/o contrast after becoming stable and off BiPAP Continue Eliquis Pepcid for GI ppx Recommendation discussed with ICU staff CCT 60 min [facility] Medical History Atrial fibrillation (~2014) Chicken pox (~1959) Chronic back pain (~2009) Deep vein thrombosis (~1989) Foot pain (~1989) Fractures (~1989) Hearing loss Irritable bowel syndrome (~2014) Low testosterone (~1989) Measles (~1959) Pneumonia Sleep apnea (~1989) Vision disorder Surgical History Anesthesia Mehdi filter in place (~1992) History of back surgery History of surgery (~2015) History of tonsillectomy Social History household members: spouse Smoking Status: Never smoker alcohol intake: current Current Medications Current Medications Medications: Home Medications apixaban 5 mg tablet (Eliquis) 5 mg PO BID #180 tabs 10/14/21 [Rx Confirmed 03/08/22] carvedilol 6.25 mg tablet 6.25 mg PO BID #180 tabs 10/14/21 [Rx Confirmed 03/08/22] fluticasone propionate 50 mcg/actuation nasal spray,suspension (Flonase Allergy Relief) 1 spray intranasal BID 10/14/21 [History Confirmed 03/08/22] gabapentin 300 mg capsule 300 mg PO QD-BID #180 caps 10/14/21 [Rx Confirmed 03/08/22] omeprazole 20 mg capsule,delayed release 20 mg PO DAILY #90 caps 10/14/21 [Rx Confirmed 03/08/22] furosemide 20 mg tablet 20 mg PO BID #180 tabs 01/28/22 [Rx Confirmed 03/08/22] terazosin 10 mg capsule 10 mg PO BEDTIME #90 caps 01/28/22 [Rx Confirmed 03/08/22] multivitamin with minerals-folic acid 0.4 mg tablet 1 tab PO DAILY 02/17/22 [History Confirmed 03/08/22] cefdinir 300 mg capsule 300 mg PO Q12H #10 caps 02/20/22 [Rx Confirmed 03/08/22] loperamide 2 mg capsule 2 mg PO QID PRN Diarrhea #10 caps 02/20/22 [Rx Confirmed 03/08/22] albuterol sulfate 90 mcg/actuation aerosol inhaler 1 puff inhalation Q2-4H PRN shortness of breath or wheezing #6.7 grams 03/03/22 [Rx Confirmed 03/08/22] Visit Medications (administered) Generic Name Dose Route Start Last Admin Trade Name Freq PRN Reason Stop Dose Admin Furosemide 80 mg/ Sodium 58 mls @ 116 mls/hr 03/11/22 04:00 03/11/22 03:34 Chloride IV 116 mls/hr Q8H DONNELL Administration Exam Vital Signs (past 8 hours): - 03/10/22 23:00 03/10/22 23:01 03/10/22 23:01 Temperature Pulse Rate 95 H 86 Respiratory Rate 36 H 58 H Blood Pressure 157/65 H Pulse Oximetry 95 96 Oxygen Delivery Method Nasal Cannula Nasal Cannula Oxygen Flow Rate 4 4 Fraction of Inspired Oxygen 03/11/22 00:24 03/10/22 23:30 03/10/22 23:31 Temperature Pulse Rate 87 87 Respiratory Rate 34 H 50 H Blood Pressure Pulse Oximetry 96 97 Oxygen Delivery Method Nasal Cannula Oxygen Flow Rate 4 Fraction of Inspired Oxygen 03/10/22 23:31 03/11/22 00:00 03/11/22 00:01 Temperature Pulse Rate 81 80 Respiratory Rate 55 H 37 H Blood Pressure 141/67 H Pulse Oximetry 97 96 Oxygen Delivery Method Oxygen Flow Rate Fraction of Inspired Oxygen 03/11/22 00:01 03/11/22 00:16 03/11/22 01:10 Temperature 97.7 F Pulse Rate 65 90 Respiratory Rate 24 32 H Blood Pressure 115/58 L 159/90 H Pulse Oximetry 99 95 Oxygen Delivery Method Nasal Cannula Oxygen Flow Rate 4 4 Fraction of Inspired Oxygen 36 03/10/22 23:31 03/11/22 01:04 03/11/22 04:00 Temperature 97.7 F Pulse Rate 51 L Respiratory Rate 16 Blood Pressure 153/89 H Pulse Oximetry 97 98 Oxygen Delivery Method Nasal Cannula Nasal Cannula Oxygen Flow Rate 4 4 Fraction of Inspired Oxygen 03/11/22 04:25 03/11/22 04:45 03/11/22 04:45 Temperature 97.8 F Pulse Rate 91 H 101 H Respiratory Rate 29 H 28 H Blood Pressure Pulse Oximetry 86 L 98 Oxygen Delivery Method Oxygen Flow Rate 5 15 Fraction of Inspired Oxygen 50 Fraction of Inspired Oxygen 50 SaO2/FiO2 Ratio 275 Oxygen Delivery Method Nasal Cannula Oxygen Flow Rate 15 Objective Labs Result Diagrams: 03/10/22 20:45 03/11/22 04:55 Labs: Laboratory Results - last 24 hr 03/10/22 03/10/22 03/10/22 20:45 20:45 20:45 WBC 6.7 RBC 3.47 L Hgb 11.6 L Hct 34.6 L MCV 99.8 MCH 33.5 MCHC 33.6 RDW 14.0 Plt Count 185 Neut % (Auto) 78.7 H Lymph % (Auto) 11.9 L [place] % (Auto) 7.2 Eos % (Auto) 1.7 L Baso % (Auto) 0.5 Neut # (Auto) 5200 Lymph # (Auto) 800 L [place] # (Auto) 500 Eos # (Auto) 100 Baso # (Auto) 0 PT 17.2 H INR 1.5 H ABG pH ABG pCO2 ABG pO2 ABG HCO3 ABG Total CO2 ABG O2 Saturation ABG Base Excess FiO2 Sodium 144 Potassium 4.0 Chloride 107 Carbon Dioxide 31 BUN 29 H Creatinine 1.34 H Estimated GFR 56 L BUN/Creatinine Ratio 21.6 Glucose 114 H Lactate Calcium 9.3 Phosphorus Magnesium Total Bilirubin 0.8 AST 28 ALT 19 Alkaline Phosphatase 77 Troponin I 0.038 H NT-Pro-B Natriuret Pep 3100 H Total Protein 7.4 Albumin 4.2 Globulin 3.2 Albumin/Globulin Ratio 1.3 Procalcitonin Chlamy pneumoniae PCR Adenovirus (PCR) B. pertussis DNA (PCR) B.parapertussis DNA PCR Coronavirus OC43 (PCR) Coronavirus HKU1 (PCR) Coronavirus 229E (PCR) SARS-CoV-2 (PCR) Coronavirus NL63 (PCR) Human Metapneumovir PCR Influenza Type A (PCR) Influenza Type B (PCR) M. pneumoniae (PCR) Parainfluenza 1 (PCR) Parainfluenza 2 (PCR) Parainfluenza 3 (PCR) Parainfluenza 4 (PCR) RSV (PCR) Entero/Rhino (PCR) 03/10/22 03/10/22 03/10/22 20:45 20:45 21:00 WBC RBC Hgb Hct MCV MCH MCHC RDW Plt Count Neut % (Auto) Lymph % (Auto) [place] % (Auto) Eos % (Auto) Baso % (Auto) Neut # (Auto) Lymph # (Auto) [place] # (Auto) Eos # (Auto) Baso # (Auto) PT INR ABG pH ABG pCO2 ABG pO2 ABG HCO3 ABG Total CO2 ABG O2 Saturation ABG Base Excess FiO2 Sodium Potassium Chloride Carbon Dioxide BUN Creatinine Estimated GFR BUN/Creatinine Ratio Glucose Lactate 1.4 Calcium Phosphorus Magnesium Total Bilirubin AST ALT Alkaline Phosphatase Troponin I NT-Pro-B Natriuret Pep Total Protein Albumin Globulin Albumin/Globulin Ratio Procalcitonin 0.14 Chlamy pneumoniae PCR Not detected Adenovirus (PCR) Not detected B. pertussis DNA (PCR) Not detected B.parapertussis DNA PCR Not detected Coronavirus OC43 (PCR) Not detected Coronavirus HKU1 (PCR) Not detected Coronavirus 229E (PCR) Not detected SARS-CoV-2 (PCR) Not detected Coronavirus NL63 (PCR) Not detected Human Metapneumovir PCR Not detected Influenza Type A (PCR) Not detected Influenza Type B (PCR) Not detected M. pneumoniae (PCR) Not detected Parainfluenza 1 (PCR) Not detected Parainfluenza 2 (PCR) Not detected Parainfluenza 3 (PCR) Not detected Parainfluenza 4 (PCR) Not detected RSV (PCR) Not detected Entero/Rhino (PCR) Not detected 03/10/22 03/11/22 03/11/22 22:48 04:55 04:55 WBC RBC Hgb Hct MCV MCH MCHC RDW Plt Count Neut % (Auto) Lymph % (Auto) [place] % (Auto) Eos % (Auto) Baso % (Auto) Neut # (Auto) Lymph # (Auto) [place] # (Auto) Eos # (Auto) Baso # (Auto) PT INR ABG pH 7.30 L ABG pCO2 61.0 H ABG pO2 74 L ABG HCO3 30 H ABG Total CO2 32 H ABG O2 Saturation 93 L ABG Base Excess 3.0 H FiO2 38 Sodium Cancelled 141 Potassium Cancelled 3.9 Chloride Cancelled 104 Carbon Dioxide Cancelled 30 BUN Cancelled 27 H Creatinine Cancelled 1.28 H Estimated GFR Cancelled 59 L BUN/Creatinine Ratio Cancelled 21.1 Glucose Cancelled 120 H Lactate Calcium Cancelled 8.9 Phosphorus 4.1 H Magnesium 1.8 Total Bilirubin 0.9 AST 39 ALT 17 Alkaline Phosphatase 76 Troponin I 0.113 H NT-Pro-B Natriuret Pep Total Protein 6.7 Albumin 3.6 Globulin 3.1 Albumin/Globulin Ratio 1.2 Procalcitonin Chlamy pneumoniae PCR Adenovirus (PCR) B. pertussis DNA (PCR) B.parapertussis DNA PCR Coronavirus OC43 (PCR) Coronavirus HKU1 (PCR) Coronavirus 229E (PCR) SARS-CoV-2 (PCR) Coronavirus NL63 (PCR) Human Metapneumovir PCR Influenza Type A (PCR) Influenza Type B (PCR) M. pneumoniae (PCR) Parainfluenza 1 (PCR) Parainfluenza 2 (PCR) Parainfluenza 3 (PCR) Parainfluenza 4 (PCR) RSV (PCR) Entero/Rhino (PCR) 03/11/22 03/11/22 04:55 05:05 WBC RBC Hgb Hct MCV MCH MCHC RDW Plt Count Neut % (Auto) Lymph % (Auto) [place] % (Auto) Eos % (Auto) Baso % (Auto) Neut # (Auto) Lymph # (Auto) [place] # (Auto) Eos # (Auto) Baso # (Auto) PT INR ABG pH 7.35 ABG pCO2 58.6 H ABG pO2 76 L ABG HCO3 32 H ABG Total CO2 34 H ABG O2 Saturation 94 L ABG Base Excess 7.0 H FiO2 50 Sodium Potassium Chloride Carbon Dioxide BUN Creatinine Estimated GFR BUN/Creatinine Ratio Glucose Lactate Calcium Phosphorus Magnesium 1.7 Total Bilirubin AST ALT Alkaline Phosphatase Troponin I NT-Pro-B Natriuret Pep Total Protein Albumin Globulin Albumin/Globulin Ratio Procalcitonin Chlamy pneumoniae PCR Adenovirus (PCR) B. pertussis DNA (PCR) B.parapertussis DNA PCR Coronavirus OC43 (PCR) Coronavirus HKU1 (PCR) Coronavirus 229E (PCR) SARS-CoV-2 (PCR) Coronavirus NL63 (PCR) Human Metapneumovir PCR Influenza Type A (PCR) Influenza Type B (PCR) M. pneumoniae (PCR) Parainfluenza 1 (PCR) Parainfluenza 2 (PCR) Parainfluenza 3 (PCR) Parainfluenza 4 (PCR) RSV (PCR) Entero/Rhino (PCR) Assessment & Plan Time Spent With Patient Critical Care time: I spent a total of [] minutes of critical care time on this patient's care today; this time is exclusive of procedural time.
[2022-03-11 06:31] LABS: Lactate (Lactic Acid) 1.5 mmol/L (0.7-2.1)
[2022-03-11 06:39] LABS: Add Manual Diff / Slide Review NO; Basophils Absolute Auto 0 /uL (0-100); Basophils Percent Auto 0.5 % (0-2); Eosinophils Absolute Auto 0 /uL (0-450); Eosinophils Percent Auto 0.4 % (2-4); Hematocrit 32.7 % (41-53); Hemoglobin 10.9 g/dL (13.5-17.5); Lymphocytes Absolute Auto 900 /uL (1100-4500); Mean Corpuscular HGB Conc 33.4 % (30-36); Mean Corpuscular Hemoglobin 33.4 PG (26-34); Monocytes Absolute Auto 0 /uL (0-900); Monocytes Percent Auto 1.2 % (3-14); Neutrophils Absolute Auto 2100 /uL (1500-7000); Neutrophils Percent Auto 67.9 % (50-75); Platelet Count 175 X10^3/uL (150-400); Red Blood Cell Count 3.28 X10^6/uL (4.5-5.9); Red Cell Distribution Width 13.9 % (11.6-14.8); White Blood Cell Count 3.1 X10^3/uL (4.5-11.0)
--- NOTE | 2022-03-11 07:05 | PC.NURSE ---
Received patient from the floor in minimal distress. Patient on bipap at 50% 15/5. No respiratory distress noted at present time. Patient placed on bed using lift and heart rhythm remains in atrial fibrillation.
--- NOTE | 2022-03-11 07:23 | DI.ECHO.S_ITS ---
[facility] +---------+ : : [address] [address] : : : : [id number] : : : : Phone: [phone]+ Echocardiogram Report + + :Name: MARIOLA DUCKWORTH Study Date: 03/11/2022 Height: 72 in : :[facility] ReadingLocation: Weight: 295 lb : : Gender: Male BSA: 2.5 m2 : :: 1950 Age: 71 yrs BP: 100/66 mmHg: :Reason For Study: NSTEMI : :Ordering Physician: : :EUGENE PATTERSON Performed By: Edgar Pandey : :Referring: EUGENE PATTERSON : + + Interpretation Summary Limited Echo: 1) Moderately enlarged left ventricle with moderately reduced systolic function (EF about 35%). 2) Severely enlarged right ventricle with mildly to moderately reduced function. 3) There is mild to moderate tricuspid regurgitation. 4) The right ventricular systolic pressure is estimated to be at least 42 mmHg based on an estimated right atrial pressure of 15 mm Hg. 5) There is a large left-sided pleural effusion. 6) Compared to the Echo done 02/17/2022, hypervolemia is present on this study. Procedure: A two-dimensional transthoracic echocardiogram with color flow and Doppler was performed. The study quality was technically adequate. Comparison is made with the echocardiogram of 02/17/2022. A contrast injection of Definity was performed to improve assessment of LV function. Left Ventricle: The left ventricle is moderately dilated. The estimated left ventricular end diastolic volume is 240 ml. Left ventricular systolic function is moderately reduced. Left ventricular ejection fraction is estimated to be 35 +/- 5%. There is moderate global hypokinesis of the left ventricle. Right Ventricle: The right ventricle is severely dilated. Right ventricular systolic function is mild to moderately reduced. Tricuspid Valve: There is mild to moderate tricuspid regurgitation. The right ventricular systolic pressure is estimated to be at least 42 mmHg based on an estimated right atrial pressure of 15 mm Hg. Great Vessels: The IVC is dilated (diameter is greater than 2.1 cm) and it collapses less than 50% with a sniff. This suggests a high right atrial pressure of 15 mm Hg. Pericardium/ Pleura There is no pericardial effusion. There is a large left- sided pleural effusion. MMode/2D Measurements & Calculations LVIDd: 6.1 cm LVIDs: 5.0 cm FS: 16.9 % IVSd: 1.1 cm LVPWd: 1.1 cm LV marie. diameter/BSA (cm/m^2): 2.4 LV sys. diameter/BSA (cm/m^2): 2.0 Doppler Measurements & Calculations TR max delfina: 259.8 cm/sec TR max P.0 mmHg Reading Physician:01:49 PM
[2022-03-11 07:36] LABS: D Dimer 3041 ng/ml (<500)
[2022-03-11] MEDS: APIXABAN 5 MG TABLET PO ×2 (09:22→20:47)
[2022-03-11] MEDS: FAMOTIDINE 20 MG/2 ML VIAL IV (09:48)
[2022-03-11] MEDS: ASPIRIN 325 MG TABLET PO (10:00)
[2022-03-11 11:44] LABS: Troponin I 0.138 ng/mL (0.01-0.034)
[2022-03-11] MEDS: CEFEPIME 1 GM in SODIUM CHLORIDE 0.9% 100 ML IV (13:56)
--- NOTE | 2022-03-11 15:13 | CM.DANOTE ---
Initial DCP Assessment Note Pt is a 71 yo male, resident of [place], arrives via EMS with cough, SOB, dyspnea. Admitted for further treatment of Acute hypoxic respiratory failure, CHF and other chronic medical conditions Chart notes indicate that approx 2 years ago patient had an 85 day hospital stay for bacterial pneumonia after being air [place]. After which patient has been severely debilitated and w/c bound PCP: Brandon Houston Payer: [facility] Reviewed chart, met w/patient to introduce self and role, patient currently on his home cpap but able to carry on conversation Patient reports he lives w/spouse and has caregivers through [employer] Mon-Sat approx 6 hours daily. Patient's home is well equipped with DME that helps him navigate in his manual wheelchair. Patient states he requires assist with most ADLs at baseline and cannot stand for long or ambulate at this time d/t profound weakness. Asked about prior SNF stay and willingness to consider upon discharge? Patient discharged to [facility] after his extended hospitalization and prefers to return home w/assistance from his caregivers. CM team will plan to follow closely as medical POC unfolds. Patient may require SNF stay d/t heaviness of care needs vs home w/caregivers and HH services if recommended PADDY Olmos Discharge Planning/Care Management CM Discharge Assessment Start: 03/11/22 15:08 Freq: Status: Active Protocol: Document 03/11/22 15:10 ANNA (Rec: 03/11/22 15:13 [id number]) Discharge Planning Assessment Assigned Inventory Control Clerk PADDY Guzman DPOA/Assigned Designee Name Kennedi Duarte, spouse Contact Information [phone] Advance Directives? Yes Advance Directives on File No History Provided By Patient Prior Living Arrangements House Household Members spouse Type of transporation used prior to Relies on Others admit Independent with ADL's No Is patient alert and oriented? Yes Comment Pt wheelchair bound Comment In home caregivers from [employer] Patient/Family Preference Home with Home Health Comment TBD Discharge Plan Home Transportation Arrangement Spouse POV Referrals Initiated Home Health Additional Comment Pt does pay privately for caregivers.
[2022-03-11] MEDS: VANCOMYCIN 1,250 MG/250 ML PIGGYBACK 167 MG IV (18:19)
[2022-03-12] VITALS (12 sets, daily range): BP systolic 100–123; BP diastolic 53–79; PULSE 60–79; RESP 16–22; TEMP 36.3–37.1; O2SAT 94–98
[2022-03-12] MEDS: CEFEPIME 1 GM in SODIUM CHLORIDE 0.9% 100 ML IV ×2 (01:09→13:20)
[2022-03-12 04:55] LABS: Add Manual Diff / Slide Review NO; Basophils Absolute Auto 100 /uL (0-100); Basophils Percent Auto 1.1 % (0-2); Eosinophils Absolute Auto 100 /uL (0-450); Eosinophils Percent Auto 1.1 % (2-4); Hematocrit 29.4 % (41-53); Hemoglobin 9.9 g/dL (13.5-17.5); Lymphocytes Absolute Auto 700 /uL (1100-4500); Lymphocytes Percent Auto 7.1 % (25-40); Mean Corpuscular HGB Conc 33.7 % (30-36); Mean Corpuscular Hemoglobin 33.5 PG (26-34); Mean Corpuscular Volume 99.5 fL (80-100); Monocytes Absolute Auto 800 /uL (0-900); Monocytes Percent Auto 8.4 % (3-14); Neutrophils Absolute Auto 7600 /uL (1500-7000); Neutrophils Percent Auto 82.3 % (50-75); Platelet Count 136 X10^3/uL (150-400); Red Blood Cell Count 2.96 X10^6/uL (4.5-5.9); Red Cell Distribution Width 14.1 % (11.6-14.8); White Blood Cell Count 9.3 X10^3/uL (4.5-11.0)
[2022-03-12 05:02] LABS: Blood Urea Nitrogen 38 mg/dL (9-20); Calcium 8.5 mg/dL (8.4-10.2); Carbon Dioxide 29 mmol/L (22-32); Chloride 103 mmol/L (98-107); Estimated Glomerular Filt Rate 44 mL/min (>60); Glucose 96 mg/dL (80-110); HEMOLYSIS < 15 (0-50); Potassium 3.4 mmol/L (3.4-5.1); Sodium 140 mmol/L (137-145)
[2022-03-12] MEDS: VANCOMYCIN 1,250 MG/250 ML PIGGYBACK 167 MG IV (05:26)
--- NOTE | 2022-03-12 06:08 | PC.NURSE ---
Patient with stable respiratory system, all night. sleeping on home cpap unit. Abiding by his fluid limit.
[2022-03-12] MEDS: FAMOTIDINE 20 MG/2 ML VIAL IV (09:14)
[2022-03-12] MEDS: APIXABAN 5 MG TABLET PO ×2 (09:14→20:54)
[2022-03-12] MEDS: POTASSIUM CHLORIDE 20 MEQ TAB 40 MEQ PO (09:14)
--- NOTE | 2022-03-12 10:49 | PM.PN.1 ---
Subjective Subjective Interval history: 71-year-old gentleman with atrial fibrillation, prior DVT, obstructive sleep apnea, and congestive heart failure who was admitted early yesterday morning with acute hypoxic respiratory failure felt to be secondary to CHF exacerbation and possible pneumonia. He required initiation of BiPAP on the date of admission. Tele employee development manager consultation was obtained with recommendations for ongoing diuresis, BiPAP, and recommendations for a CT of the chest. Patient reports he is feeling quite a bit better overall today. He has been weaned down to nasal cannula oxygen. Pedroza catheter remains in place. He denies significant shortness of breath. No chest pain. He has been coughing up greenish sputum. He states following his hospital discharge he felt quite well for at least a week. He then developed hemoptysis which has since resolved. His notes that during therapies he was having reduced oxygen saturations but recovered quickly. He had a bowel movement this morning. Exam Vital Signs (past 8 hours): - 03/12/22 05:00 03/12/22 06:00 03/12/22 09:00 Temperature 97.4 F L Pulse Rate 60 Respiratory Rate 18 Blood Pressure 107/66 Pulse Oximetry 98 96 95 Oxygen Delivery Method CPAP Nasal Cannula Oxygen Flow Rate 5 2 03/12/22 08:00 03/12/22 08:45 Temperature 97.9 F Pulse Rate 70 Respiratory Rate 16 Blood Pressure 115/75 Pulse Oximetry 96 Oxygen Delivery Method CPAP Oxygen Flow Rate 5 Fraction of Inspired Oxygen 35 SaO2/FiO2 Ratio 275 Oxygen Delivery Method Nasal Cannula Oxygen Flow Rate 2 Narrative Exam Narrative: GEN: Pleasant middle-aged male, Alert and oriented x 3, NAD HEENT:NC, Face symmetric CHEST: Respiratory excursions symmetric, coarse but CTAB CV: RRR, no M/R/G ABD: Soft, obese, NT/ND, BT present in all 4 quadrants, body habitus limits exam EXTR: warm, well perfused, no C/C/E SKIN: warm and dry, no rash NEURO: Alert and oriented x 3, nonfocal Objective Labs Result Diagrams: 03/12/22 04:17 03/12/22 04:17 Labs: Laboratory Results - last 24 hr 03/11/22 03/11/22 03/12/22 10:50 18:00 04:17 WBC 9.3 D RBC 2.96 L Hgb 9.9 L Hct 29.4 L MCV 99.5 MCH 33.5 MCHC 33.7 RDW 14.1 Plt Count 136 L Neut % (Auto) 82.3 H Lymph % (Auto) 7.1 L D [place] % (Auto) 8.4 Eos % (Auto) 1.1 L Baso % (Auto) 1.1 Neut # (Auto) 7600 H Lymph # (Auto) 700 L [place] # (Auto) 800 Eos # (Auto) 100 Baso # (Auto) 100 Sodium Potassium Chloride Carbon Dioxide BUN Creatinine Estimated GFR BUN/Creatinine Ratio Glucose Calcium Troponin I 0.138 H* Nasal Screen MRSA (PCR) Negative for mrsa 03/12/22 04:17 WBC RBC Hgb Hct MCV MCH MCHC RDW Plt Count Neut % (Auto) Lymph % (Auto) [place] % (Auto) Eos % (Auto) Baso % (Auto) Neut # (Auto) Lymph # (Auto) [place] # (Auto) Eos # (Auto) Baso # (Auto) Sodium 140 Potassium 3.4 Chloride 103 Carbon Dioxide 29 BUN 38 H Creatinine 1.65 H Estimated GFR 44 L BUN/Creatinine Ratio 23.0 H Glucose 96 Calcium 8.5 Troponin I Nasal Screen MRSA (PCR) [facility] Medical History Atrial fibrillation (~2014) Chicken pox (~1959) Chronic back pain (~2009) Deep vein thrombosis (~1989) Foot pain (~1989) Fractures (~1989) Hearing loss Irritable bowel syndrome (~2014) Low testosterone (~1989) Measles (~1959) Pneumonia Sleep apnea (~1989) Vision disorder Surgical History Anesthesia Mehdi filter in place (~1992) History of back surgery History of surgery (~2015) History of tonsillectomy Social History household members: spouse Smoking Status: Never smoker alcohol intake: current Assessment & Plan Assessment & Plan narrative: 1. Acute hypoxic respiratory failure Suspected etiology of congestive heart failure and pneumonia. He remains on cefepime, vancomycin and azithromycin. He was receiving furosemide 80 mg IV q.8 hours. This was discontinued yesterday. We will restart furosemide at 40 mg IV b.i.d.. Will discontinue vancomycin, as MRSA swab was negative. Will plan a total of 3 doses of azithromycin. Continue cefepime. Patient was just hospitalized a few weeks ago with pneumonia and CHF. 2. Acute on chronic systolic CHF exacerbation Echocardiogram was done yesterday and revealed: a moderately enlarged left ventricle with moderately reduced systolic function. LVEF 35%. Severely enlarged right ventricle with mild to moderately reduced function. To moderate tricuspid regurgitation. RVSP 42 mmHg. Large left pleural effusion. Compared with prior study, hypervolemia is present on this study. 3. Atrial fibrillation Continue apixaban. 4. Obstructive sleep apnea Continue CPAP at night 5. Prior DVT Continue apixaban 6. CKD 2 Creatinine is up from 1.28 yesterday to 1.65 today. Baseline appears to be between about 1.3 and 1.5. Will monitor. Code status Full Prophylaxis Apixaban Disposition Home at discharge. PT consult ordered. Time Spent With Patient Critical Care time: I spent a total of [] minutes of critical care time on this patient's care today; this time is exclusive of procedural time.
--- NOTE | 2022-03-12 11:43 | CM.DPC ---
DCP Cont: Per MD, pt able to transition off bipap this morning and on NC oxygen at this time and not yet medically stable to d/c today. SW met bedside with pt and explained role and he confirms that about 2 years ago he had an extended hospital stay for bacterial pneumonia at [facility] and was finally discharged to [facility] for SNF and was at SNF for a couple months before discharging home with HH. Pt states that he and spouse have been fighting insurance for the past two years and have had to pay out of pocket at least $100,000 for air flight [employer], DME in the home like hospital bed and [id number] lift, and copays for SNF, etc.. Pt states he feels outpt PT at [facility] has been the most beneficial and his goal is still to be able to walk. Pt does not feel SNF needed at [facility] as they have the DME, hospital bed, and set up for home and he is concerned that he will have more bills at SNF due to [facility] managing his Medicare. PT was ordered initially to confirm pt at his baseline but pt appears to be baseline and w/c bound and does not transfer independently without [id number] and would likely not be skillable for SNF and pt discharged from Inpt PT. Pt feels outpt PT more beneficial than HH and preference would be home with spouse assist and resume outpt PT. Plan: SW to follow closely to confirm safe plan of home with spouse and any further identified discharge planning needs. PADDY Curry
[2022-03-12] MEDS: FUROSEMIDE 40 MG/4 ML VIAL IV ×2 (13:19→23:16)
--- NOTE | 2022-03-12 13:20 | PT-IP ANOTE ---
checked on pt and wants to eat lunch first. will check back again.
--- NOTE | 2022-03-12 14:10 | PT.IIE ---
Current Diagnoses Unspecified atrial fibrillation (03/10/22) Pneumonia, unspecified organism (03/10/22) Surgical History (Last Reviewed 03/11/22 @ 01:05 by Claude Mason MD) Anesthesia Mehdi filter in place (~1992) History of back surgery History of surgery (~2015) History of tonsillectomy Medical History (Last Reviewed 03/11/22 @ 01:05 by Claude Mason MD) Atrial fibrillation (~2014) Chicken pox (~1959) Chronic back pain (~2009) Deep vein thrombosis (~1989) Foot pain (~1989) Fractures (~1989) Hearing loss Irritable bowel syndrome (~2014) Low testosterone (~1989) Measles (~1959) Pneumonia Sleep apnea (~1989) Vision disorder Physical Therapy Inpatient Evaluation/Re-Eval M1 PT/OT-IP Prior Functional Status Start: 03/12/22 16:22 Freq: NEEDED Status: Active Protocol: Document 03/12/22 14:10 AB (Rec: 03/12/22 16:57 AB [id number]) Medical Review Prior Functional Status Medical History Reviewed Yes Communication able to make needs known Mobility and Gait pt requiring assistance at home: has 4 hours caregivers and spouse to assist. Pt has a hospital bed and an overhead trapeze to assist him with bed mobility and and able to complete mod I at home per pt. pt uses a sit to stand machine for transfers and is w/c bound. per pt, he has been going to outpt PT and has been working on ambulation and able to ambulate using FWW max A and w/c follow. Per outpt PT notes: pt just recently started ambulating using FWW; prior to that has been standing in // bars Activities of Daily Living and IADL's pt has assists with all ADLs Social History Household Members spouse Living Arrangements House Number of Floors (Floors) Two Floors Home Environment High Toilet,Tub/Shower Doors, Elevator Home Equipment Front Wheel Walker,Manual Wheelchair,Tub Transfer Bench, Shower Seat with Backrest,Hand Held Shower,Grab Bars Near Toilet,Grab Bars In Shower Additional Social History Comment caregivers: M-Sat ~ 4 hours pt has a hospital bed and overhead trapeze at home. M2 PT-IP Current Condition Start: 03/12/22 16:22 Freq: NEEDED Status: Active Protocol: Document 03/12/22 14:10 AB (Rec: 03/12/22 16:57 [email or web address]) Physical Therapy Current Condition Current Condition Evaluation Date 03/12/22 Treatment Diagnosis CHF; generalized weakness Onset Date 03/10/22 M3 PT-IP Subjective Start: 03/12/22 16:22 Freq: NEEDED Status: Active Protocol: Document 03/12/22 14:10 AB (Rec: 03/12/22 16:57 [email or web address]) Subjective Physical Therapy Visit Type Type Initial Evaluation Visit Start Time 14:10 Visit Stop Time 14:45 Total Visit Minutes 35 Notes Checked on pt prior to lunch and talked with spouse and pt. informed regarding PT eval and educated on risks and benefits. Pt uses a sit<> stand machine for transfers at home and between his caregivers and spouse has 24/7 assist at home. pt has been receiving outpt PT prior to admission and has been slowly progressing and has been able to ambulate with max A using FWW for a few feet and a w/c follow. Pt and spouse stated that they don't want pt to lose the progress pt made with outpt PT. Pt at that time, wanting to eat lunch first but agreed to do PT in the afternoon. Checked back on pt after lunch and initially refusing PT. spouse was not in room. Pt stated that his LLE is swollen and he does not want to move his LE. reminded pt of the earlier conversation with him and spouse regarding PT and reiterated of what he really wants to do with regarding PT goals. Pt then stated that he is willing to try and agreed to do PT. Pt seemed to be more motivated and agreeable to do PT with present. Number of ORTHOPEDIC NURSE Visits 0 Physical Therapy Visit Comments Patient Comments initially refusing PT but then agreed after education M4 PT-IP Mobility and Gait Start: 03/12/22 16:22 Freq: NEEDED Status: Active Protocol: Document 03/12/22 14:10 AB (Rec: 03/12/22 16:57 [email or web address]) PT-Bed Mobility Assessment Supine to Sit Supine to Sit Moderate Assistance,Maximum Assistance,Head of Bed Elevated,Bedrails Sit to Supine Sit to Supine Maximum Assistance,2 Person Assistance,Bedrails Scooting Scooting to Edge of Bed Maximum Assistance PT-Transfer Assessment Sit to and From Stand Sit to and from Stand Maximum Assistance,2 Person Assistance,Use of Upper Extremities Equipment Transfer Assistive Device Gait Belt,Front Wheeled Walker Orthotic/Prosthetic Devices or Brace: No Comments Mobility Comments O2 sat with 2L/min O2 at rest: 94%. completed supine to sit mod to max A and max cues. max A for scooting to EOB. O2 sat decreased to 85%. cued for deep breathing and O2 sat increased to 90%. nurse stated that O2 can be increased up to 6L/min. completed sit to stand max A x 2 and max cues. O2 sat decreased to ~ 87% with standing and O2 increased to 3L/min. able to take side stepping towards HOB max A x 2 and max cues. LE shuffling and needing assist to weight shift to be able to have LE clearance to move LE. pt sat on EOB and O2 sat checked: 80% . increased O2 to 4L/min and cued for deep breathing. O2 sat increased to 92%. able to completed sit to supine max A x 2 and max cues. positioned pt in bed total Ax 2. call light and table placed within reach. O2 sat supine with 4Lmin: 96%. O2 decreased back to 2L/min: O2 sat 93% informed nurse PT-Balance Assessment Sitting Balance and Reactions Static Sitting Balance Ability Fair Dynamic Sitting Balance Ability Fair Standing Balance and Reactions Static Standing Balance Ability Poor Dynamic Standing Balance Ability Poor Device Used FWW M5 PT-IP Objective Assessments Start: 03/12/22 16:22 Freq: NEEDED Status: Active Protocol: Document 03/12/22 14:10 AB (Rec: 03/12/22 16:57 AB [id number]) Orientation Orientation/Cognition Level of Alertness Alert Orientation Name,Place,Situation Language Function Ability No Deficits Noted Safety Awareness Decreased Safety Awareness Memory Description Short Term Impaired Strength Lower Extremity Strength Assessment Bilaterally Impaired Knee 3+/5 Ankle bilateral foot drop Sensation Assessment Sensation Gross Sensation Right LE Impaired,Left LE Impaired Light Touch Impaired Proprioception (Position) Impaired Sensation Description Numbness M6 PT-IP Treatment Start: 03/12/22 16:22 Freq: NEEDED Status: Active Protocol: Document 03/12/22 14:10 AB (Rec: 03/12/22 16:57 AB [id number]) Physical Therapy Treatment Education Education Provided Safety M7 PT-IP Assessment and Plan Start: 03/12/22 16:22 Freq: NEEDED Status: Active Protocol: Document 03/12/22 14:10 AB (Rec: 03/12/22 16:57 AB [email or web address]) PT Summary Assessment and Plan Potential Rehabilitation Potential Fair Status of Condition at Evaluation Evolving Summary Impairments Pain,ROM,Strength,Balance, Coordination,Sensation,Tone, Cognition,Bed Mobility, Transfers,Gait,Activity Tolerance Assessment Summary pt has very limited mobility at home and is w/c bound but has been working with outpt PT to improve standing and ambulation and has been slowly progressing. Pt admitted in the hospital for CHF and has gotten weaker and PT to improve overall strength and prevent further deconditioning . pt and spouse refuses to go to SNF and has caregivers a few hours 6/wk to assist. pt has all DME needs at home. will continue to assess progress. Goals Bed Mobility Goal Standby Assistance Transfer Goal Maximal Assistance,Front Wheeled Walker Gait Goal Maximal Assistance,Front Wheel Walker Gait Distance 10 Days to Meet Goals 10 Frequency of Treatment Frequency Of Treatment Once a Day Treatment Plan Physical Therapy Treatment Plan Bed Mobility Training,Transfer Training,Gait Training, Therapeutic Exercise,Balance Retraining,Discharge Planning, Hot or Cold Pack,Neuromuscular Re-ed,Coordination Retraining ,Manual Therapy Precautions Other Precautions falls; O2 sat Recommendations To Nursing Amount of Assist Needed Mechanical Lift Discharge Recommendations PT Discharge Recommendations Home with 24/10 Assist Available,Home Health Transportation Needs at Discharge Wheelchair/Cabulance
[2022-03-12] MEDS: POTASSIUM CHLORIDE 20 MEQ TAB PO (16:52)
[2022-03-12] MEDS: LACTOBACILLUS ACIDOPHILUS TABLET 1 EACH PO (16:52)
[2022-03-12] MEDS: AZITHROMYCIN 500 MG in DEXTROSE 5% IN WATER 250 ML 250 MG IV (22:36)
[2022-03-12] MEDS: ACETAMINOPHEN 325 MG TABLET 650 MG PO (23:14)
[2022-03-13] VITALS (10 sets, daily range): BP systolic 129–146; BP diastolic 62–86; PULSE 55–76; RESP 18–21; TEMP 36.3–36.9; O2SAT 90–99
[2022-03-13] MEDS: CEFEPIME 1 GM in SODIUM CHLORIDE 0.9% 100 ML IV ×2 (00:28→14:13)
[2022-03-13 05:03] LABS: Add Manual Diff / Slide Review NO; Basophils Absolute Auto 0 /uL (0-100); Basophils Percent Auto 0.5 % (0-2); Eosinophils Absolute Auto 200 /uL (0-450); Eosinophils Percent Auto 3.1 % (2-4); Hematocrit 29.8 % (41-53); Hemoglobin 10.1 g/dL (13.5-17.5); Lymphocytes Absolute Auto 800 /uL (1100-4500); Lymphocytes Percent Auto 11.6 % (25-40); Mean Corpuscular Hemoglobin 33.4 PG (26-34); Mean Corpuscular Volume 98.2 fL (80-100); Monocytes Absolute Auto 700 /uL (0-900); Monocytes Percent Auto 10.8 % (3-14); Neutrophils Absolute Auto 4800 /uL (1500-7000); Platelet Count 137 X10^3/uL (150-400); Red Blood Cell Count 3.03 X10^6/uL (4.5-5.9); Red Cell Distribution Width 14.2 % (11.6-14.8); White Blood Cell Count 6.5 X10^3/uL (4.5-11.0)
[2022-03-13 05:09] LABS: BUN Creatinine Ratio 21.1 (6-22); Blood Urea Nitrogen 37 mg/dL (9-20); Carbon Dioxide 33 mmol/L (22-32); Chloride 102 mmol/L (98-107); Estimated Glomerular Filt Rate 41 mL/min (>60); Glucose 89 mg/dL (80-110); HEMOLYSIS < 15 (0-50); Potassium 3.8 mmol/L (3.4-5.1); Sodium 141 mmol/L (137-145)
--- NOTE | 2022-03-13 05:56 | PM.PN.1 ---
Subjective Subjective Interval history: 71-year-old gentleman with atrial fibrillation, prior DVT, obstructive sleep apnea, and congestive heart failure who was admitted early yesterday morning with acute hypoxic respiratory failure felt to be secondary to CHF exacerbation and possible pneumonia.? He required initiation of BiPAP on the date of admission.? Tele computer repair technician consultation was obtained with recommendations for ongoing diuresis, BiPAP, and recommendations for a CT of the chest. Patient reports he is feeling a bit better again today. He is down to a 0.5 L of oxygen. Pedroza catheter remains in place but he would like to have it discontinued. He is hopeful to go home tomorrow. He continues to cough up some greenish sputum. He denies any chest pain, nausea. He is moving his bowels as noted yesterday. Exam Vital Signs (past 8 hours): - 03/13/22 01:00 03/13/22 04:00 03/13/22 05:00 Temperature 97.3 F L Pulse Rate 65 Respiratory Rate 18 Blood Pressure 129/86 Pulse Oximetry 90 L 97 94 Oxygen Delivery Method Nasal Cannula CPAP Oxygen Flow Rate 2 5 2 Fraction of Inspired Oxygen 35 SaO2/FiO2 Ratio 275 Oxygen Delivery Method CPAP Oxygen Flow Rate 2 Narrative Exam Narrative: GEN:? Pleasant middle-aged male, Alert and oriented x 3, NAD HEENT:NC, Face symmetric CHEST: Respiratory excursions symmetric, coarse but CTAB CV: RRR, no M/R/G ABD: Soft, obese, NT/ND, BT present in all 4 quadrants, body habitus limits exam EXTR: warm, well perfused, no C/C/E SKIN: warm and dry, no rash NEURO: Alert and oriented x 3, nonfocal Objective Labs Result Diagrams: 03/13/22 04:33 03/13/22 04:33 Labs: Laboratory Results - last 24 hr 03/13/22 03/13/22 04:33 04:33 WBC 6.5 RBC 3.03 L Hgb 10.1 L Hct 29.8 L MCV 98.2 MCH 33.4 MCHC 34.0 RDW 14.2 Plt Count 137 L Neut % (Auto) 74.0 Lymph % (Auto) 11.6 L [place] % (Auto) 10.8 Eos % (Auto) 3.1 Baso % (Auto) 0.5 Neut # (Auto) 4800 Lymph # (Auto) 800 L [place] # (Auto) 700 Eos # (Auto) 200 Baso # (Auto) 0 Sodium 141 Potassium 3.8 Chloride 102 Carbon Dioxide 33 H BUN 37 H Creatinine 1.75 H Estimated GFR 41 L BUN/Creatinine Ratio 21.1 Glucose 89 Calcium 9.0 PFS Medical History Atrial fibrillation (~2014) Chicken pox (~1959) Chronic back pain (~2009) Deep vein thrombosis (~1989) Foot pain (~1989) Fractures (~1989) Hearing loss Irritable bowel syndrome (~2014) Low testosterone (~1989) Measles (~1959) Pneumonia Sleep apnea (~1989) Vision disorder Surgical History Anesthesia [place] filter in place (~1992) History of back surgery History of surgery (~2015) History of tonsillectomy Social History household members: spouse Smoking Status: Never smoker alcohol intake: current Assessment & Plan Assessment & Plan narrative: 1. Acute hypoxic respiratory failure Suspected etiology of congestive heart failure and pneumonia.? He remains on cefepime.? He w is receiving furosemide 40 mg IV b.i.d.. Will plan to transition back to his usual outpatient oral Lasix..? He completed 3 doses of azithromycin. Continue cefepime for another 24 hours as he did have a very recent hospitalization for pneumonia, and I want to ensure this is not ongoing infection versus new discrete episode of pneumonia. 2. Acute on chronic systolic CHF exacerbation Echocardiogram was done on March 11 and revealed: a moderately enlarged left ventricle with moderately reduced systolic function.? LVEF 35%.? Severely enlarged right ventricle with mild to moderately reduced function.? To moderate tricuspid regurgitation.? RVSP 42 mmHg.? Large left pleural effusion.? Compared with prior study, hypervolemia is present on this study. As his creatinine has been increasing, plan to discontinue IV diuresis and transitioned back to his usual oral Lasix. 3. Atrial fibrillation Continue apixaban. 4. Obstructive sleep apnea Continue CPAP at night 5. Prior DVT Continue apixaban 6. CKD 2 Creatinine is up from 1.28 on admission to 1.65 yesterday and 1.75 today. Baseline appears to be between about 1.3 and 1.5.? As noted, will transition back to oral diuresis. Code status Full Prophylaxis Apixaban Disposition Home at discharge.? Possible discharge home tomorrow. His can bring him home in the rented van with his wheelchair. Would benefit from ongoing home health therapies. Time Spent With Patient Critical Care time: I spent a total of [] minutes of critical care time on this patient's care today; this time is exclusive of procedural time.
--- NOTE | 2022-03-13 06:41 | PC.NURSE ---
0640- Patient noted to have significant desaturation at night while on his CPap. Saturations as low as 79% with a good wave form. Rebounds after a few seconds. Patient refusing to turn as he says he cannot sleep tipped. Patient otherwise stable.
[2022-03-13] MEDS: LACTOBACILLUS ACIDOPHILUS TABLET 1 EACH PO ×2 (08:33→18:17)
[2022-03-13] MEDS: APIXABAN 5 MG TABLET PO ×2 (08:33→20:53)
[2022-03-13] MEDS: POTASSIUM CHLORIDE 20 MEQ TAB PO ×2 (08:33→18:17)
[2022-03-13] MEDS: ACETAMINOPHEN 325 MG TABLET 650 MG PO ×2 (08:34→23:26)
[2022-03-13] MEDS: FAMOTIDINE 20 MG/2 ML VIAL IV (08:34)
[2022-03-13] MEDS: FUROSEMIDE 40 MG/4 ML VIAL IV (14:13)
--- NOTE | 2022-03-13 14:18 | PT.IPTN ---
Current Diagnoses Unspecified atrial fibrillation (03/10/22) Pneumonia, unspecified organism (03/10/22) Physical Therapy Treatment Note M2 PT-IP Current Condition Start: 03/12/22 16:22 Freq: NEEDED Status: Active Protocol: Document 03/12/22 14:10 AB (Rec: 03/12/22 16:57 AB [id number]) Physical Therapy Current Condition Current Condition Evaluation Date 03/12/22 Treatment Diagnosis CHF; generalized weakness Onset Date 03/10/22 M3 PT-IP Subjective Start: 03/12/22 16:22 Freq: NEEDED Status: Active Protocol: Document 03/13/22 14:03 LJ (Rec: 03/13/22 14:18 LJ [id number]) Subjective Physical Therapy Visit Type Type Treatment Note Visit Start Time 13:37 Visit Stop Time 14:03 Total Visit Minutes 26 Notes Assist from nursing Physical Therapy Visit Comments Patient Comments Pt agreeable to stand at side of the bed M4 PT-IP Mobility and Gait Start: 03/12/22 16:22 Freq: NEEDED Status: Active Protocol: Document 03/13/22 14:03 LJ (Rec: 03/13/22 14:18 LJ [id number]) PT-Bed Mobility Assessment Rolling Type of Rolling Bilateral Supine to Sit Supine to Sit Maximum Assistance,2 Person Assistance,Bedrails Sit to Supine Sit to Supine Maximum Assistance,2 Person Assistance,Bedrails Scooting Scooting to Edge of Bed Maximum Assistance Scooting Up and Down in Bed Dependent PT-Transfer Assessment Sit to and From Stand Sit to and from Stand Maximum Assistance,2 Person Assistance,Use of Upper Extremities Equipment Transfer Assistive Device Gait Belt,Front Wheeled Walker Orthotic/Prosthetic Devices or Brace: No Comments Mobility Comments Pt requirred MaxA x2 for logroll to left using bedrails also. MaxA x2 for moving LEs off side of the bed and lifting trunk to seated position. Pt sat at dieo of bed several minutes prior to standing. O2 remained at 97% on 3L. Pt stood maxA x2 and Max cues for standing upright. Nursing changing and weighing bed which required pt to stand several minutes. Unable to shuffle feet sideways to reposition prior to returning to bed. Pt sat on side of bed then stood again MaxA x2 to swing buttocks toward head of bed. Pt sat back on the bed and required MaxA x2-3 for repositioning in bed. Dependent for scooting up in bed. Pt was left in bed with all needs within reach. O2 did not drop below 93% during tx. PT-Balance Assessment Sitting Balance and Reactions Static Sitting Balance Ability Fair Dynamic Sitting Balance Ability Fair Standing Balance and Reactions Static Standing Balance Ability Poor Dynamic Standing Balance Ability Poor Device Used FWW M5 PT-IP Objective Assessments Start: 03/12/22 16:22 Freq: NEEDED Status: Active Protocol: Document 03/12/22 14:10 AB (Rec: 03/12/22 16:57 AB [id number]) Orientation Orientation/Cognition Level of Alertness Alert Orientation Name,Place,Situation Language Function Ability No Deficits Noted Safety Awareness Decreased Safety Awareness Memory Description Short Term Impaired Strength Lower Extremity Strength Assessment Bilaterally Impaired Knee 3+/5 Ankle bilateral foot drop Sensation Assessment Sensation Gross Sensation Right LE Impaired,Left LE Impaired Light Touch Impaired Proprioception (Position) Impaired Sensation Description Numbness M6 PT-IP Treatment Start: 03/12/22 16:22 Freq: NEEDED Status: Active Protocol: Document 03/12/22 14:10 AB (Rec: 03/12/22 16:57 AB [id number]) Physical Therapy Treatment Education Education Provided Safety M7 PT-IP Assessment and Plan Start: 03/12/22 16:22 Freq: NEEDED Status: Active Protocol: Document 03/13/22 14:03 PURA (Rec: 03/13/22 14:18 LJ [id number]) PT Summary Assessment and Plan Potential Rehabilitation Potential Fair Status of Condition at Evaluation Evolving Summary Impairments Pain,ROM,Strength,Balance, Coordination,Sensation,Tone, Cognition,Bed Mobility, Transfers,Gait,Activity Tolerance Assessment Summary Pt required same amount of assist this session. Unable to shuffle his LEs sideways unlike . He stood x2 which is more than and his O2% sat improved. He will require continued PT to improve mobility and strength. Goals Bed Mobility Goal Standby Assistance Transfer Goal Maximal Assistance,Front Wheeled Walker Gait Goal Maximal Assistance,Front Wheel Walker Gait Distance 10 Days to Meet Goals 10 Frequency of Treatment Frequency Of Treatment Once a Day Treatment Plan Physical Therapy Treatment Plan Bed Mobility Training,Transfer Training,Gait Training, Therapeutic Exercise,Balance Retraining,Discharge Planning, Hot or Cold Pack,Neuromuscular Re-ed,Coordination Retraining ,Manual Therapy Other Recommendations and Next Treatment defer further treatment to out Focus -pt PT Precautions Other Precautions falls; O2 sat Recommendations To Nursing Amount of Assist Needed 3 or More Person Assist, Mechanical Lift Discharge Recommendations PT Discharge Recommendations Home with 24/10 Assist Available,Home Health
[2022-03-13] MEDS: GABAPENTIN 300 MG CAPSULE PO (20:49)
[2022-03-13] MEDS: carvediloL 3.125 MG TABLET 6.25 MG PO (20:49)
[2022-03-13] MEDS: TERAZOSIN 5 MG CAPSULE 10 MG PO (20:53)
[2022-03-13] MEDS: FLUTICASONE 120 SPRAY/16 GM SPRAY.SUSP NASAL (20:53)
[2022-03-13] MEDS: FUROSEMIDE 20 MG TABLET PO (20:53)
[2022-03-14] VITALS: BP 114/67; PULSE 71; RESP 22; TEMP 36.9; O2SAT 93
[2022-03-14] MEDS: CEFEPIME 1 GM in SODIUM CHLORIDE 0.9% 100 ML IV (00:44)
[2022-03-14 01:00] VITALS: O2SAT 93
[2022-03-14 04:00] VITALS: BP 104/6; PULSE 67; RESP 19; TEMP 36.4; O2SAT 96
[2022-03-14 04:51] LABS: Add Manual Diff / Slide Review NO; Basophils Absolute Auto 0 /uL (0-100); Basophils Percent Auto 0.6 % (0-2); Eosinophils Absolute Auto 200 /uL (0-450); Eosinophils Percent Auto 3.4 % (2-4); Hematocrit 29.5 % (41-53); Hemoglobin 9.9 g/dL (13.5-17.5); Lymphocytes Absolute Auto 700 /uL (1100-4500); Lymphocytes Percent Auto 13.5 % (25-40); Mean Corpuscular HGB Conc 33.8 % (30-36); Mean Corpuscular Hemoglobin 33.1 PG (26-34); Mean Corpuscular Volume 97.9 fL (80-100); Monocytes Absolute Auto 600 /uL (0-900); Neutrophils Absolute Auto 3600 /uL (1500-7000); Neutrophils Percent Auto 71.5 % (50-75); Platelet Count 139 X10^3/uL (150-400); Red Blood Cell Count 3.01 X10^6/uL (4.5-5.9); Red Cell Distribution Width 14.2 % (11.6-14.8)
[2022-03-14 04:59] LABS: HEMOLYSIS < 15 (0-50); Potassium 3.7 mmol/L (3.4-5.1)
[2022-03-14 05:00] LABS: BUN Creatinine Ratio 21.9 (6-22); Blood Urea Nitrogen 35 mg/dL (9-20); Calcium 9.1 mg/dL (8.4-10.2); Carbon Dioxide 32 mmol/L (22-32); Chloride 105 mmol/L (98-107); Estimated Glomerular Filt Rate 45 mL/min (>60); Glucose 101 mg/dL (80-110); Sodium 142 mmol/L (137-145)
[2022-03-14 05:25] VITALS: O2SAT 94
[2022-03-14] MEDS: PANTOPRAZOLE DR 40 MG TABLET PO (06:41)
[2022-03-14 06:50] VITALS: BP 105/67; PULSE 58; RESP 19; TEMP 36.1; O2SAT 95
--- NOTE | 2022-03-14 07:22 | P.DS_ITS ---
History of Present Illness History of Present Illness Date Patient Seen: 03/14/22 Chief complaint: cough- fever Discharge Providers Provider Date of admission: 03/10/22 23:25 Discharge Date: 03/14/22 Primary care physician: Brandon Houston MD Consults: 03/11/22 06:55 Consult to Tele-fly rail operator Routine Comment: Consulting Provider: [facility] [employer] Reason for consultation: Analysis Intern services 03/12/22 11:29 Consult to Physical Therapy Evaluate & Treat Comment: Physician Instructions: Evaluate and Treat Discharge provider: Terrance Rodriguez DO Summary Hospital Course Discharge Diagnosis: 1. Acute hypoxic respiratory failure with possible CAP Suspected etiology of congestive heart failure and pneumonia.? He remains on c efepime.? He received furosemide 40 mg IV b.i.d. then transitioned back to his usual outpatient oral Lasix..? He completed 3 doses of azithromycin.? Finished 5 days of cefepime as well. Discharged on 6 more days of po augmentin. 2. Acute on chronic systolic CHF exacerbation Echocardiogram was done on March 11 and revealed: a moderately enlarged left ventricle with moderately reduced systolic function.? LVEF 35%.? Severely enlarged right ventricle with mild to moderately reduced function.? To moderate tricuspid regurgitation.? RVSP 42 mmHg.? Large left pleural effusion.? Compared with prior study, hypervolemia is present on this study.? As his creatinine has been increasing, plan to discontinue IV diuresis and transitioned back to his usual oral Lasix. 3. Atrial fibrillation Continue apixaban. 4. Obstructive sleep apnea Continue CPAP at night 5. Prior DVT Continue apixaban 6. CKD 2 Creatinine is up from 1.28 on admission to 1.65 yesterday and 1.75 today.? Baseline appears to be between about 1.3 and 1.5.? As noted, will transition back to oral diuresis. Hospital Course: Admitted for acute hypoxic resp failure thought to be due to pneumonia and CHF. Given IV abx and diuretics with improvement in his O2 requirements and able to wean off O2. Discharged on 6 more days of po abx. Time Spent with Patient Time spent: Greater than 30 minutes Exam Vital Signs (past 8 hours): Fraction of Inspired Oxygen 35 SaO2/FiO2 Ratio 275 Oxygen Delivery Method Room Air Oxygen Flow Rate 1 Narrative Exam Narrative: GEN:? Pleasant middle-aged male, Alert and oriented x 3, NAD HEENT:NC, Face symmetric CHEST: Respiratory excursions symmetric, coarse but CTAB CV: RRR, no M/R/G ABD: Soft, obese, NT/ND, BT present in all 4 quadrants, body habitus limits exam EXTR: warm, well perfused, no C/C/E SKIN: warm and dry, no rash NEURO: Alert and oriented x 3, nonfocal Objective Labs Result Diagrams: 03/14/22 04:31 03/14/22 04:31 [facility] Medical History Atrial fibrillation (~2014) Chicken pox (~1959) Chronic back pain (~2009) Deep vein thrombosis (~1989) Foot pain (~1989) Fractures (~1989) Hearing loss Irritable bowel syndrome (~2014) Low testosterone (~1989) Measles (~1959) Pneumonia Sleep apnea (~1989) Vision disorder Surgical History Anesthesia Mehdi filter in place (~1992) History of back surgery History of surgery (~2015) History of tonsillectomy Social History household members: spouse Smoking Status: Never smoker alcohol intake: current Discharge Plan Discharge Plan Patient Disposition: Home Provider Discharge Comment: Continue working on good pulmonary hygiene (increased time out of bed, frequent cough and deep breathing), continue good hand hygiene, avoid being around ill people, optimize good nutrition. You will complete a few more days of oral antibiotics. I've sent you a small supply of a pain pill for your heel. Discharge orders & Medications Prescriptions: New Freeze Dried Acidophilus Capsule 1 ea PO BIDWM Qty: 60 0RF amoxicillin-pot clavulanate 875-125 mg tablet 1 tab PO BID Qty: 12 0RF oxycodone 5 mg tablet 5 mg PO Q8H PRN (Reason: pain) Qty: 20 0RF Continued furosemide 20 mg tablet 20 mg PO BID Qty: 180 3RF terazosin 10 mg capsule 10 mg PO BEDTIME Qty: 90 3RF albuterol sulfate 90 mcg/actuation HFA aerosol inhaler 1 puff inhalation Q2-4H PRN (Reason: shortness of breath or wheezing) Qty: 6.7 0RF omeprazole 20 mg capsule,delayed release(/EC) 20 mg PO DAILY Qty: 90 0RF fluticasone propionate [Flonase Allergy Relief] 50 mcg/actuation spray,suspension 1 spray intranasal BID Rx Instructions: administer into each nostril Eliquis 5 mg tablet 5 mg PO BID Qty: 180 3RF carvedilol 6.25 mg tablet 6.25 mg PO BID Qty: 180 3RF gabapentin 300 mg capsule 300 mg PO QD-BID Qty: 180 1RF multivit with min-folic acid 0.4 mg Tablet 1 tab PO DAILY loperamide 2 mg Capsule 2 mg PO QID PRN (Reason: Diarrhea) Qty: 10 0RF Discontinued cefdinir 300 mg capsule 300 mg PO Q12H Qty: 10 0RF Follow up/Referrals: Brandon Houston MD [Primary Care Provider] - 2 Weeks Diet/Activity/Treatments Diet: Diet as Tolerated and Low-sodium Diet comment: Do not consume more than 2 liters of fluid daily Activity: Resume Home Health PT/OT. Continue increasing activity as tolerated Oxygen: N/A Visit Report/Discharge Packet Instructions: Pneumonia-Adult, DI for Heart Failure, Amoxicillin and Clavulanic Acid Discharge Data Primary Care Provider: Brandon Houston
[2022-03-14] MEDS: FLUTICASONE 120 SPRAY/16 GM SPRAY.SUSP NASAL (09:07)
[2022-03-14] MEDS: carvediloL 3.125 MG TABLET 6.25 MG PO (09:07)
[2022-03-14] MEDS: MULTIVITAMIN 1 TABLET 1 TAB PO (09:07)
[2022-03-14] MEDS: APIXABAN 5 MG TABLET PO (09:08)
[2022-03-14] MEDS: LACTOBACILLUS ACIDOPHILUS TABLET 1 EACH PO (09:08)
[2022-03-14] MEDS: GABAPENTIN 300 MG CAPSULE PO (09:08)
[2022-03-14] MEDS: FUROSEMIDE 20 MG TABLET PO (09:08)
[2022-03-14] MEDS: POTASSIUM CHLORIDE 20 MEQ TAB PO (09:08)
[2022-03-14] MEDS: FAMOTIDINE 20 MG TABLET PO (09:14)
--- NOTE | 2022-03-14 09:26 | PC.NURSE ---
Addendum entered by Debra Rossi R.N. 03/14/22 11:23: Patient placed on the bed leung. Patient had a medium, soft stool. Cleaned up and pulled up in bed. His r.heel is pink and dry but not open. He states that he can feel pain to area. Support socks on with non skid socks, and heel protectors to area. Patient ate all of his breakfast and is visiting with his . He may discharge home today, and he resting comfortably. Original Note: Assess- Patient is alert and oriented x4, he has been on his light several times. He is asking to go home in an ambulance, this message has been relayed to health care social worker and Priscilla is aware. Patient complains of pain to his r.heel. Per report patients skin is boggy but not open. He does not help with any of his care, and he is a 3 person assist to be scooted up in bed with a lift sheet. VSS and patient took his medications whole with water.
[2022-03-14 12:00] VITALS: BP 100/67; PULSE 57; RESP 21; TEMP 36.5; O2SAT 96
[2022-03-14] MEDS: OXYCODONE IR 5 MG TABLET PO (13:22)
== END 2022-03-14 13:56 | disposition home or self-care (01) | DRG 193 ==
LOC: ED 21:02 → AC 23:26 → ICU 03-11 05:57
PROVIDERS: Student in an Organized Health Care Education/Training Program; Admitting Provider Internal Medicine; Emergency Provider Emergency Medicine; Family Provider Student in an Organized Health Care Education/Training Program; PCP Student in an Organized Health Care Education/Training Program; Referring Provider Emergency Medicine; Visit Provider Internal Medicine
DX: J18.9 Pneumonia, unspecified organism (principal); I50.23 Acute on chronic systolic (congestive) heart failure; J96.01 Acute respiratory failure with hypoxia; I48.91 Unspecified atrial fibrillation; G47.33 Obstructive sleep apnea (adult) (pediatric); N18.2 Chronic kidney disease, stage 2 (mild); Z20.822 Contact with and (suspected) exposure to COVID-19; Z79.01 Long term (current) use of anticoagulants; Z86.718 Personal history of other venous thrombosis and embolism; R29.898 Other symptoms and signs involving the musculoskeletal system; M62.81 Muscle weakness (generalized); Z74.09 Other reduced mobility; R53.83 Other fatigue; R26.9 Unspecified abnormalities of gait and mobility
CPT/HCPCS: 36415; 36600; 71045; 80048; 80053; 82805; 83605; 83735; 83880; 84100; 84145; 84484; 85025; 85379; 85610; 87040; 87070; 87205; 87633; 87797; 93005; 93010; 93307; 94640; 94660; 94760; 94762; 96374; 97116; 97163; 97530; 99285; A9270; J0692; J1940; J7613; Q9957

== ENCOUNTER → 2022-05-23 15:10 | Outpatient (CLI) | payer MEDICARE, SELFPAY ==
[2022-03-10 23:31] VITALS: BMI 40.0
[2022-03-11 12:11] VITALS: PULSE 64; RESP 22; O2SAT 98
--- NOTE | 2022-05-23 15:11 | DI.RAD.S_ITS ---
PROCEDURE: XR CHEST 2V INDICATIONS: Cough, chest congestion TECHNIQUE: 2 views of the chest were acquired. COMPARISON: [facility], [place], XR CHEST 1V, 03/10/2022, 21:30. [facility], [place], XR CHEST 1V, 02/16/2022, 18:27. FINDINGS: Surgical changes and devices: None. Lungs and pleura: Small pleural effusions. Mediastinum: Cardiomegaly. Bones and chest wall: No suspicious bony abnormalities. Soft tissues appear unremarkable. IMPRESSION: Small pleural effusions. Dictated by: Reymundo Kong M.D. on 05/23/2022 at 15:48 Approved by: Reymundo Kong M.D. on 05/23/2022 at 15:49
== END ==
PROVIDERS: Family Provider Student in an Organized Health Care Education/Training Program; PCP Student in an Organized Health Care Education/Training Program; Referring Provider Student in an Organized Health Care Education/Training Program; Visit Provider Student in an Organized Health Care Education/Training Program
DX: J90 Pleural effusion, not elsewhere classified (principal); I50.9 Heart failure, unspecified; R06.02 Shortness of breath
CPT/HCPCS: 71046

== ENCOUNTER → 2022-05-26 10:43 | Outpatient (CLI) | payer MEDICARE, SELFPAY ==
[2022-03-10 23:31] VITALS: BMI 40.0
[2022-03-11 12:11] VITALS: PULSE 64; RESP 22; O2SAT 98
[2022-05-26 11:54] LABS: Appearance Urine UA SL CLOUDY; Bilirubin Urine UA NEGATIVE (NEGATIVE); Color Urine UA YELLOW; Glucose Urine UA NEGATIVE (Negative); Ketones Urine UA NEGATIVE (NEGATIVE); Leukocyte Esterase Urine UA 2+ (NEGATIVE); Nitrite Urine UA POSITIVE (Negative); Occult Blood Urine UA 1+ (Negative); Protein Urine UA 1+ (Negative); Specific Gravity Urine UA 1.015 (1.000-1.035); Urobilinogen Urine UA 0.2 E.U./dL (0.2)
[2022-05-26 12:28] LABS: Amorphous Sediment Urine 1+; Bacteria Urine Many (>30); RBC Urine 1-5/HPF (0-5/HPF); Triple Phosphate Crystal Urine Few; WBC Urine 10-30/HPF (0-5/HPF)
[2022-05-26 12:29] LABS: Culture Indicated Urine Specimen Cultured
== END ==
PROVIDERS: Family Provider Student in an Organized Health Care Education/Training Program; PCP Student in an Organized Health Care Education/Training Program; Referring Provider Student in an Organized Health Care Education/Training Program; Visit Provider Student in an Organized Health Care Education/Training Program
DX: R30.0 Dysuria (principal)
CPT/HCPCS: 81001; 87077; 87086; 87186

== ENCOUNTER 2022-06-07 13:45 | Outpatient (RCR) | payer MEDICARE, SELFPAY ==
--- NOTE | 2021-12-14 16:45 | PT.OPPOC ---
Physical, Occupational & Speech Therapy At [facility] Current Diagnoses Muscle weakness (generalized) (12/14/21) Unspecified abnormalities of gait and mobility (12/14/21) Other symptoms and signs involving the musculoskeletal system (12/14/21) Other fatigue (12/14/21) Other reduced mobility (12/14/21) Visit Care Team Role Provider Type Brandon Houston MD Attending Provider Physician Family Provider Primary Care Provider Referring Provider Specialty: Internal Medicine Address: [address] [place] [address], [address], [facility] Email: [email or web address] Plan Of Care PT-OP-T Assessment and Plan Start: 12/14/21 17:57 Freq: Status: Active Protocol: Document 12/14/21 16:00 DCW (Rec: 12/15/21 09:25 DCW [id number]) Physical Therapy Assessment Rehab Potential Rehabilitation Potential Fair Evaluation Complexity Number of Personal Factors/Comorbidities 3 or More Number of Body Systems Impaired 4 or More Clinical Presentation at Evaluation Unstable Impairments Impairments Activity Tolerance,Balance, Edema,Functional Activities, Functional Mobility,Gait,ROM, Sensation,Strength,Tone, Transfers Other Concerns Fall Risk Severe falls risk Goals Three Impairment Pt unable to propel himself well in w/c due to severely limited R UE ROM Nursing Home Goal (LTG) Pt to improve right shoulder ROM to 100? flexion and abduction and increase IR to reach back to at least his left SI area in order to better propel his wheelchair independently. LTG Duration 03/14/22 Two Impairment Pt unable to step inside // bars due to severe ankle weakness and neuropath Head Filter Press Tender Goal (LTG) Pt to ambulate 50' using least restrictive AD CGA while wearing appropriate AFOs to limit impact of foot drop to allow him to be more functionally mobile at home, including getting to the bathroom. LTG Duration 03/14/22 One Impairment Pt does not have an appropriate home exercise program Short Term Goal (STG) Pt to be independent and compliant with an appropriate HEP STG Duration 01/28/22 Assessment Summary Assessment Pt presents to skilled therapy severely debilitated with global weakness, decreased activity tolerance, limited mobility, inability to perform gait, poor balance, neuropathy, and increased reliance on caregivers following a very long, complicated illness which left him either in a hospital or rehab facility for eight months. Pt currently only able to sit->stand with UE assistance using parallel bars or Mod Ax2 from his caregivers holding a walker stable, which he uses to pull himself up, as he is unable to push himself up from the chair due to UE weakness and decreased shoulder ROM. Pt has recently improved with bed mobility in the past few weeks , noting that he can largely perform bed mobility independently, as long as he as help getting seated EOB. Pt currently limited to standing inside parallel bars for 4 minutes, unable/unwilling to ambulate without AFOs that prevent his dropfoot, feels it is too risky between dropfoot and neuropathy. Pt should benefit from skilled therapy focusing on increasing strength, mobility, activity tolerance, UE ROM, bracing, gait, balance, and transfers. Physical Therapy Plan Frequency and Duration Frequency of Treatment 2x/Week Duration of Treatment 90 days Plan of Care Start Date 12/14/21 Plan of Care End Date 03/14/22 Therapeutic Interventions Therapeutic Interventions Aquatic Therapy,Balance Training,Coordination Training ,Gait Training,Home Exercise Program,Lymphedema Management, Manual Therapy,Neuromuscular Re-education,Orthotic/ Prosthetic Management,Patient/ Caregiver Education,Self-Care/ Home Management,Soft Tissue Mobilization,Therapeutic Activities,Therapeutic Exercises,Wheelchair Management Modalities Cold Pack/Ice Massage,Electric Stimulation,Hot Packs, Ultrasound Other Referrals/Consults Referrals/Consults Recommended Pt would likely greatly benefit from bilateral AFOs to help improve potential of pt to ambulate with his severe foot drop. Next Visit Focus/Plan Next Note Type Treatment Note Next Visit Plan Activity tolerance, sit<-> stand, LE strengthening, UE ROM Plan of Care Dates Plan of Care Start Date 12/14/21 Plan of Care End Date 03/14/22 Electronically Signed by: Rikki Lopez, PT 12/15/21 0926 If you are in agreement with this Plan of Care, please return a signed and dated copy. I have reviewed this Plan of Care and certify that the skilled therapy services above are required to meet the patient?s needs. Physician Signature Date Printed Name and Credentials Clinical Instructor Signature Printed Name and Credentials
--- NOTE | 2021-12-14 16:45 | PT.OIE ---
Current Diagnoses Muscle weakness (generalized) (12/14/21) Unspecified abnormalities of gait and mobility (12/14/21) Other symptoms and signs involving the musculoskeletal system (12/14/21) Other fatigue (12/14/21) Other reduced mobility (12/14/21) Past Medical History (Last Updated 10/25/21 @ 08:25 by Brandon Houston MD) Atrial fibrillation (~2014) Chicken pox (~1959) Chronic back pain (~2009) Deep vein thrombosis (~1989) Foot pain (~1989) Fractures (~1989) Hearing loss Irritable bowel syndrome (~2014) Low testosterone (~1989) Measles (~1959) Pneumonia Sleep apnea (~1989) Vision disorder Past Surgical History (Last Reviewed 10/22/21 @ 19:04 by Yahaira Mckeon DO) Anesthesia Stopover filter in place (~1992) History of back surgery History of surgery (~2015) History of tonsillectomy Visit Care Team Role Provider Type Brandon Houston MD Attending Provider Physician Family Provider Primary Care Provider Referring Provider Specialty: Internal Medicine Address: [address] [place] [address], [address], [facility] Email: [email or web address] Physical Therapy Initial Evaluation PT-OP-A Visit Information Start: 12/14/21 17:57 Freq: Status: Active Protocol: Document 12/14/21 16:00 DCW (Rec: 12/14/21 18:01 DC [id number]) Out-Patient Physical Therapy Visit Information Visit Information Visit Type Initial Evaluation Visit Start Time 16:00 Visit Stop Time 16:45 Total Visit Minutes 45 Visit Number 1 Number of NEEDLE CONTROL CHENILLER Visits 0 Evaluation Information Evaluation Date 12/14/21 PT-OP-B Current Condition Start: 12/14/21 17:57 Freq: Status: Active Protocol: Document 12/14/21 16:00 DCW (Rec: 12/14/21 18:10 DC [id number]) Current Condition History of Current Condition Onset Date February, Current Complaints Physical debility, deconditioning, limited mobility, weakness History of Current Condition Pt is a 71 year old male presenting with a very complicated medical history. Pt was vacationing in [place] in February,, when he was hospitalized with a bacterial respiratory infection. He was there for two weeks, and then airlifted to [facility] in [place], where he remained for 90 days, including a long stay on a respirator. He was released from [facility] on May 17, 2021 and sent to a rehab facility in [place] until October 06, 2021, and then finally released home. Pt had home health PT for a few weeks, but they stopped coming after pt developed pressure ulcers. Pt is now healed, and feeling improved enough to begin outpatient therapy. Pt is dramatically deconditioned, limited to w/c mobility, and only uses a FWW and Mod Ax1 to stand for 1-2 minutes at a time. Pt complains of ongoing neuropathy and foot drop, both of which began during his hospital stay. is primary caregiver, but they do have an additional caregiver come for four hours a day. They have purchased a recumbent elliptical for exercise, and pt has improved from using it on level 0 for 5 minutes to level 8 for an hour or more. Pt notes that he has been trying to get a prescription for AFOs to help with his drop foot, as he is unable to take a step due to 0/5 ankle weakness. Able to slowly mobilize himself in his manual wheelchair, but unable to propel himself with his LEs. Treatment Goals Patient/Caregiver Goals Pt wants to be able to get up and take a few steps. Personal Factors Other Personal Factors That May Effect Obesity, limited R shoulder Therapy/Recovery mobility, severe ankle weakness/drop foot, Hx PE, lymphedema, neuropathy PT-OP-C Subjective Start: 12/14/21 17:57 Freq: Status: Active Protocol: Document 12/14/21 16:00 DCW (Rec: 12/15/21 09:08 [facility] [id number]) OP-PT Subjective Patient Comments Patient Comments I've really been waiting to get something to help with this dropfoot. I don't think I 'll be able to walk until I get braces or something. Between my feet dragging and not being able to feel them, it just wouldn't be safe. Patient Reported Progress Improving Patient Questionnaires Lower Extremity Functional Scale LEFS Score 4/80 = 5% LEFS Impairment 80 to 99% Impaired (Score 1-16 ) OP-PT Pain Assessment Pain Assessment Grid Paper Pain Assessment Grid Completed No PT-OP-G Mobility & Gait Start: 12/14/21 17:57 Freq: Status: Active Protocol: Document 12/14/21 16:00 DCW (Rec: 12/15/21 09:08 DCW [id number]) OP Mobility Evaluation Bed Mobility Rolling Per pt's , Indep, occasional Min A Transfers Sit to Stand Pt able to sit->stand from w/c CGA using UE assist on // bars. Pt requires Mod Ax2 at home with and caregiver holding FWW stable so he can pull himself up. Wheelchair Management Type of Wheelchair Manual Assessment Details Pt able to use UE to propel w/ c at a very slow speed, limited by overall arm weakness and decreased shoulder ROM. Barely able to propel with LEs, very weak HS pull with limited traction on floor due to ankle weakness and neuropathy. OP Gait Assessment Comments Gait Comments Unwilling and unable to attempt to ambulate at this time, even in parallel bars. Severe foot drop with neuropathy makes pt unable to take any steps forward due to fear of falling and tripping hazard. PT-OP-K Range of Motion Start: 12/14/21 17:57 Freq: Status: Active Protocol: Document 12/14/21 16:00 DCW (Rec: 12/15/21 09:08 DCW [id number]) Shoulder Goniometric Range of Motion Shoulder Right Active Shoulder ROM WFL No Testing Position Sitting Flexion 50 Abduction 50 Internal Rotation Behind Back (text) Unable to reach back past lateral hip Left Active Shoulder ROM WFL No Testing Position Sitting Flexion 90 Abduction 110 Internal Rotation Behind Back (text) L PSIS PT-OP-M Strength Start: 12/14/21 17:57 Freq: Status: Active Protocol: Document 12/14/21 16:00 DCW (Rec: 12/14/21 18:01 DCW [id number]) Hip Strength Hip Manual Muscle Testing Right Flexion (L2) 2 Poor Abduction 3+ Fair+ Adduction 3- Fair- Left Flexion (L2) 2 Poor Abduction 3+ Fair+ Adduction 3- Fair- Knee Strength Knee Manual Muscle Testing Right Flexion (S2) 2+ Poor+ Extension (L3) 4+ Good+ Left Flexion (S2) 3 Fair Extension (L3) 4+ Good+ Ankle/Foot Strength Ankle and Foot Manual Muscle Testing Right Dorsiflexion (L4) 0 Zero Plantarflexion (S1) 2+ Poor+ Inversion 0 Zero Eversion (S1) 0 Zero Left Dorsiflexion (L4) 0 Zero Plantarflexion (S1) 1 Trace Inversion 0 Zero Eversion (S1) 0 Zero PT-OP-T Assessment and Plan Start: 12/14/21 17:57 Freq: Status: Active Protocol: Document 12/14/21 16:00 DCW (Rec: 12/15/21 09:25 DCW [id number]) Physical Therapy Assessment Rehab Potential Rehabilitation Potential Fair Evaluation Complexity Number of Personal Factors/Comorbidities 3 or More Number of Body Systems Impaired 4 or More Clinical Presentation at Evaluation Unstable Impairments Impairments Activity Tolerance,Balance, Edema,Functional Activities, Functional Mobility,Gait,ROM, Sensation,Strength,Tone, Transfers Other Concerns Fall Risk Severe falls risk Goals Three Impairment Pt unable to propel himself well in w/c due to severely limited R UE ROM Halfway Goal (LTG) Pt to improve right shoulder ROM to 100? flexion and abduction and increase IR to reach back to at least his left SI area in order to better propel his wheelchair independently. LTG Duration 03/14/22 Two Impairment Pt unable to step inside // bars due to severe ankle weakness and neuropath Halfway Goal (LTG) Pt to ambulate 50' using least restrictive AD CGA while wearing appropriate AFOs to limit impact of foot drop to allow him to be more functionally mobile at home, including getting to the bathroom. LTG Duration 03/14/22 One Impairment Pt does not have an appropriate home exercise program Short Term Goal (STG) Pt to be independent and compliant with an appropriate HEP STG Duration 01/28/22 Assessment Summary Assessment Pt presents to skilled therapy severely debilitated with global weakness, decreased activity tolerance, limited mobility, inability to perform gait, poor balance, neuropathy, and increased reliance on caregivers following a very long, complicated illness which left him either in a hospital or rehab facility for eight months. Pt currently only able to sit->stand with UE assistance using parallel bars or Mod Ax2 from his caregivers holding a walker stable, which he uses to pull himself up, as he is unable to push himself up from the chair due to UE weakness and decreased shoulder ROM. Pt has recently improved with bed mobility in the past few weeks , noting that he can largely perform bed mobility independently, as long as he as help getting seated EOB. Pt currently limited to standing inside parallel bars for 4 minutes, unable/unwilling to ambulate without AFOs that prevent his dropfoot, feels it is too risky between dropfoot and neuropathy. Pt should benefit from skilled therapy focusing on increasing strength, mobility, activity tolerance, UE ROM, bracing, gait, balance, and transfers. Physical Therapy Plan Frequency and Duration Frequency of Treatment 2x/Week Duration of Treatment 90 days Plan of Care Start Date 12/14/21 Plan of Care End Date 03/14/22 Therapeutic Interventions Therapeutic Interventions Aquatic Therapy,Balance Training,Coordination Training ,Gait Training,Home Exercise Program,Lymphedema Management, Manual Therapy,Neuromuscular Re-education,Orthotic/ Prosthetic Management,Patient/ Caregiver Education,Self-Care/ Home Management,Soft Tissue Mobilization,Therapeutic Activities,Therapeutic Exercises,Wheelchair Management Modalities Cold Pack/Ice Massage,Electric Stimulation,Hot Packs, Ultrasound Other Referrals/Consults Referrals/Consults Recommended Pt would likely greatly benefit from bilateral AFOs to help improve potential of pt to ambulate with his severe foot drop. Next Visit Focus/Plan Next Note Type Treatment Note Next Visit Plan Activity tolerance, sit<-> stand, LE strengthening, UE ROM
--- NOTE | 2021-12-17 15:07 | PT.OTN ---
Current Diagnoses Muscle weakness (generalized) (12/17/21) Unspecified abnormalities of gait and mobility (12/17/21) Other symptoms and signs involving the musculoskeletal system (12/17/21) Other fatigue (12/17/21) Other reduced mobility (12/17/21) Physical Therapy Treatment Note PT-OP-A Visit Information Start: 12/14/21 17:57 Freq: Status: Active Protocol: Document 12/17/21 14:30 DCW (Rec: 12/17/21 15:07 DCW [id number]) Out-Patient Physical Therapy Visit Information Visit Information Visit Type Treatment Note Visit Start Time 14:30 Visit Stop Time 15:00 Total Visit Minutes 30 Visit Number 2 Number of PLAYER DEVELOPMENT EXECUTIVE Visits 0 Evaluation Information Evaluation Date 12/14/21 PT-OP-B Current Condition Start: 12/14/21 17:57 Freq: Status: Active Protocol: Document 12/14/21 16:00 DCW (Rec: 12/14/21 18:10 DCW [id number]) Current Condition History of Current Condition Onset Date February, Current Complaints Physical debility, deconditioning, limited mobility, weakness History of Current Condition Pt is a 71 year old male presenting with a very complicated medical history. Pt was vacationing in [place] in February,, when he was hospitalized with a bacterial respiratory infection. He was there for two weeks, and then airlifted to [facility] in [place], where he remained for 90 days, including a long stay on a respirator. He was released from [facility] on May 17, 2021 and sent to a rehab facility in [place] until October 06, 2021, and then finally released home. Pt had home health PT for a few weeks, but they stopped coming after pt developed pressure ulcers. Pt is now healed, and feeling improved enough to begin outpatient therapy. Pt is dramatically deconditioned, limited to w/c mobility, and only uses a FWW and Mod Ax1 to stand for 1-2 minutes at a time. Pt complains of ongoing neuropathy and foot drop, both of which began during his hospital stay. is primary caregiver, but they do have an additional caregiver come for four hours a day. They have purchased a recumbent elliptical for exercise, and pt has improved from using it on level 0 for 5 minutes to level 8 for an hour or more. Pt notes that he has been trying to get a prescription for AFOs to help with his drop foot, as he is unable to take a step due to 0/5 ankle weakness. Able to slowly mobilize himself in his manual wheelchair, but unable to propell himself with his LEs. Treatment Goals Patient/Caregiver Goals Pt wants to be able to get up and take a few steps. Personal Factors Other Personal Factors That May Effect Obesity, limited R shoulder Therapy/Recovery mobility, severe ankle weakness/drop foot, Hx PE, lymphedema, neuropathy PT-OP-C Subjective Start: 12/14/21 17:57 Freq: Status: Active Protocol: Document 12/17/21 14:30 DCW (Rec: 12/17/21 15:07 DCW [id number]) OP-PT Subjective Patient Comments Patient Comments I really over did it yesterday. I got new ankle weights and I just really did too much. PT-OP-G Mobility & Gait Start: 12/14/21 17:57 Freq: Status: Active Protocol: Document 12/14/21 16:00 DCW (Rec: 12/15/21 09:08 DCW [id number]) OP Mobility Evaluation Bed Mobility Rolling Per pt's , Indep, occasional Min A Transfers Sit to Stand Pt able to sit->stand from w/c CGA using UE assist on // bars. Pt requires Mod Ax2 at home with and caregiver holding FWW stable so he can pull himself up. Wheelchair Management Type of Wheelchair Manual Assessment Details Pt able to use UE to propel w/ c at a very slow speed, limited by overall arm weakness and decreased shoulder ROM. Barely able to propel with LEs, very weak HS pull with limited traction on floor due to ankle weakness and neuropathy. OP Gait Assessment Comments Gait Comments Unwilling and unable to attempt to ambulate at this time, even in parallel bars. Severe foot drop with neuropathy makes pt unable to take any steps forward due to fear of falling and tripping hazard. PT-OP-K Range of Motion Start: 12/14/21 17:57 Freq: Status: Active Protocol: Document 12/14/21 16:00 DCW (Rec: 12/15/21 09:08 DCW [id number]) Shoulder Goniometric Range of Motion Shoulder Right Active Shoulder ROM WFL No Testing Position Sitting Flexion 50 Abduction 50 Internal Rotation Behind Back (text) Unable to reach back past lateral hip Left Active Shoulder ROM WFL No Testing Position Sitting Flexion 90 Abduction 110 Internal Rotation Behind Back (text) L PSIS PT-OP-M Strength Start: 12/14/21 17:57 Freq: Status: Active Protocol: Document 12/14/21 16:00 DCW (Rec: 12/14/21 18:01 DCW [id number]) Hip Strength Hip Manual Muscle Testing Right Flexion (L2) 2 Poor Abduction 3+ Fair+ Adduction 3- Fair- Left Flexion (L2) 2 Poor Abduction 3+ Fair+ Adduction 3- Fair- Knee Strength Knee Manual Muscle Testing Right Flexion (S2) 2+ Poor+ Extension (L3) 4+ Good+ Left Flexion (S2) 3 Fair Extension (L3) 4+ Good+ Ankle/Foot Strength Ankle and Foot Manual Muscle Testing Right Dorsiflexion (L4) 0 Zero Plantarflexion (S1) 2+ Poor+ Inversion 0 Zero Eversion (S1) 0 Zero Left Dorsiflexion (L4) 0 Zero Plantarflexion (S1) 1 Trace Inversion 0 Zero Eversion (S1) 0 Zero PT-OP-Q Treatments Start: 12/14/21 17:57 Freq: Status: Active Protocol: Document 12/17/21 14:30 DCW (Rec: 12/17/21 15:07 DCW [id number]) Cardio Equipment Upper Body Ergometer (UBE) Seat Position w/c Height 2.5 Recumbent Stepper (Sci-Fit) Duration (Minutes) 4 Resistance 1 Seat Position w/c Other c/o LE pain Therapeutic Activity Therapeutic Activity Sit<->stand Name Sit<->stand attempts x6 Max Ax1 Comments was able to get fully standing one time, was unable to remain up longer than 5 seconds PT-OP-T Assessment and Plan Start: 12/14/21 17:57 Freq: Status: Active Protocol: Document 12/17/21 14:30 DCW (Rec: 12/17/21 15:07 DCW [id number]) Physical Therapy Assessment Impairments Impairments Activity Tolerance,Balance, Edema,Functional Activities, Functional Mobility,Gait,ROM, Sensation,Strength,Tone, Transfers Other Concerns Fall Risk Severe falls risk Goals Three Impairment Pt unable to propel himself well in w/c due to severely limited R UE ROM Fci Goal (LTG) Pt to improve right shoulder ROM to 100? flexion and abduction and increase IR to reach back to at least his left SI area in order to better propel his wheelchair independently. LTG Duration 03/14/22 Two Impairment Pt unable to step inside // bars due to severe ankle weakness and neuropath Fci Goal (LTG) Pt to ambulate 50' using least restrictive AD CGA while wearing appropriate AFOs to limit impact of foot drop to allow him to be more functionally mobile at home, including getting to the bathroom. LTG Duration 03/14/22 One Impairment Pt does not have an appropriate home exercise program Short Term Goal (STG) Pt to be independent and compliant with an appropriate HEP STG Duration 01/28/22 Assessment Summary Assessment Attempted to walk with straps to limit foot drop, however pt was so sore and fatigued from exercise yesterday, he was unable to even stand up from wheelchair, much less attempt to ambulate. Tried multiple different activities and exercises, and pt was completely unable to perform any activities due to extreme weakness and fatigue. Too much LE pain with recumbent stepper, pt tolerated UBE slightly better, was able to help some with right UE mobility in an effort to improve pt's ability to propel wheelchair. Physical Therapy Plan Frequency and Duration Frequency of Treatment 2x/Week Duration of Treatment 90 days Plan of Care Start Date 12/14/21 Plan of Care End Date 03/14/22 Therapeutic Interventions Therapeutic Interventions Aquatic Therapy,Balance Training,Coordination Training ,Gait Training,Home Exercise Program,Lymphedema Management, Manual Therapy,Neuromuscular Re-education,Orthotic/ Prosthetic Management,Patient/ Caregiver Education,Self-Care/ Home Management,Soft Tissue Mobilization,Therapeutic Activities,Therapeutic Exercises,Wheelchair Management Modalities Cold Pack/Ice Massage,Electric Stimulation,Hot Packs, Ultrasound Other Referrals/Consults Referrals/Consults Recommended Pt would likely greatly benefit from bilateral AFOs to help improve potential of pt to ambulate with his severe foot drop. Next Visit Focus/Plan Next Note Type Treatment Note Next Visit Plan Activity tolerance, sit<-> stand, LE strengthening, UE ROM
--- NOTE | 2021-12-20 15:17 | PT.OTN ---
Current Diagnoses Muscle weakness (generalized) (12/20/21) Unspecified abnormalities of gait and mobility (12/20/21) Other symptoms and signs involving the musculoskeletal system (12/20/21) Other fatigue (12/20/21) Other reduced mobility (12/20/21) Physical Therapy Treatment Note PT-OP-A Visit Information Start: 12/14/21 17:57 Freq: Status: Active Protocol: Document 12/20/21 14:30 DCW (Rec: 12/20/21 15:17 DCW [id number]) Out-Patient Physical Therapy Visit Information Visit Information Visit Type Treatment Note Visit Start Time 14:30 Visit Stop Time 15:15 Total Visit Minutes 45 Visit Number 3 Number of CRUST SORTER Visits 0 Evaluation Information Evaluation Date 12/14/21 PT-OP-B Current Condition Start: 12/14/21 17:57 Freq: Status: Active Protocol: Document 12/14/21 16:00 DCW (Rec: 12/14/21 18:10 DCW [id number]) Current Condition History of Current Condition Onset Date February, Current Complaints Physical debility, deconditioning, limited mobility, weakness History of Current Condition Pt is a 71 year old male presenting with a very complicated medical history. Pt was vacationing in [place] in February,, when he was hospitalized with a bacterial respiratory infection. He was there for two weeks, and then airlifted to [facility] in [place], where he remained for 90 days, including a long stay on a respirator. He was released from [facility] on May 17, 2021 and sent to a rehab facility in [place] until October 06, 2021, and then finally released home. Pt had home health PT for a few weeks, but they stopped coming after pt developed pressure ulcers. Pt is now healed, and feeling improved enough to begin outpatient therapy. Pt is dramatically deconditioned, limited to w/c mobility, and only uses a FWW and Mod Ax1 to stand for 1-2 minutes at a time. Pt complains of ongoing neuropathy and foot drop, both of which began during his hospital stay. is primary caregiver, but they do have an additional caregiver come for four hours a day. They have purchased a recumbent elliptical for exercise, and pt has improved from using it on level 0 for 5 minutes to level 8 for an hour or more. Pt notes that he has been trying to get a prescription for AFOs to help with his drop foot, as he is unable to take a step due to 0/5 ankle weakness. Able to slowly mobilize himself in his manual wheelchair, but unable to propell himself with his LEs. Treatment Goals Patient/Caregiver Goals Pt wants to be able to get up and take a few steps. Personal Factors Other Personal Factors That May Effect Obesity, limited R shoulder Therapy/Recovery mobility, severe ankle weakness/drop foot, Hx PE, lymphedema, neuropathy PT-OP-C Subjective Start: 12/14/21 17:57 Freq: Status: Active Protocol: Document 12/20/21 14:30 DCW (Rec: 12/20/21 15:17 DCW [id number]) OP-PT Subjective Patient Comments Patient Comments I did some sit to stands today, but made sure I didn't overdo anything. PT-OP-G Mobility & Gait Start: 12/14/21 17:57 Freq: Status: Active Protocol: Document 12/14/21 16:00 DCW (Rec: 12/15/21 09:08 DCW [id number]) OP Mobility Evaluation Bed Mobility Rolling Per pt's , Indep, occasional Min A Transfers Sit to Stand Pt able to sit->stand from w/c CGA using UE assist on // bars. Pt requires Mod Ax2 at home with and caregiver holding FWW stable so he can pull himself up. Wheelchair Management Type of Wheelchair Manual Assessment Details Pt able to use UE to propel w/ c at a very slow speed, limited by overall arm weakness and decreased shoulder ROM. Barely able to propel with LEs, very weak HS pull with limited traction on floor due to ankle weakness and neuropathy. OP Gait Assessment Comments Gait Comments Unwilling and unable to attempt to ambulate at this time, even in parallel bars. Severe foot drop with neuropathy makes pt unable to take any steps forward due to fear of falling and tripping hazard. PT-OP-K Range of Motion Start: 12/14/21 17:57 Freq: Status: Active Protocol: Document 12/14/21 16:00 DCW (Rec: 12/15/21 09:08 DCW [id number]) Shoulder Goniometric Range of Motion Shoulder Right Active Shoulder ROM WFL No Testing Position Sitting Flexion 50 Abduction 50 Internal Rotation Behind Back (text) Unable to reach back past lateral hip Left Active Shoulder ROM WFL No Testing Position Sitting Flexion 90 Abduction 110 Internal Rotation Behind Back (text) L PSIS PT-OP-M Strength Start: 12/14/21 17:57 Freq: Status: Active Protocol: Document 12/14/21 16:00 DCW (Rec: 12/14/21 18:01 DCW [id number]) Hip Strength Hip Manual Muscle Testing Right Flexion (L2) 2 Poor Abduction 3+ Fair+ Adduction 3- Fair- Left Flexion (L2) 2 Poor Abduction 3+ Fair+ Adduction 3- Fair- Knee Strength Knee Manual Muscle Testing Right Flexion (S2) 2+ Poor+ Extension (L3) 4+ Good+ Left Flexion (S2) 3 Fair Extension (L3) 4+ Good+ Ankle/Foot Strength Ankle and Foot Manual Muscle Testing Right Dorsiflexion (L4) 0 Zero Plantarflexion (S1) 2+ Poor+ Inversion 0 Zero Eversion (S1) 0 Zero Left Dorsiflexion (L4) 0 Zero Plantarflexion (S1) 1 Trace Inversion 0 Zero Eversion (S1) 0 Zero PT-OP-Q Treatments Start: 12/14/21 17:57 Freq: Status: Active Protocol: Document 12/20/21 14:30 DCW (Rec: 12/20/21 15:17 DCW [id number]) Therapeutic Exercises Sitting Exercises Hamstring curls Sitting Exercise Name HS curls Side bilateral Resistance Lv 1 Therapeutic Activity Therapeutic Activity Sit<->stand Name StS x4 Gait Training Gait Activity Pre-gait Description Pre-gait weight shift Distance/Duration 3' Assisted gait Distance/Duration 7 x2 Comments Min Ax1 to advance right foot. Using straps attached to gait belt in order to limit foot drop PT-OP-T Assessment and Plan Start: 12/14/21 17:57 Freq: Status: Active Protocol: Document 12/20/21 14:30 DCW (Rec: 12/20/21 15:17 DCW [id number]) Physical Therapy Assessment Impairments Impairments Activity Tolerance,Balance, Edema,Functional Activities, Functional Mobility,Gait,ROM, Sensation,Strength,Tone, Transfers Other Concerns Fall Risk Severe falls risk Goals Three Impairment Pt unable to propel himself well in w/c due to severely limited R UE ROM Barrelhead Inspector Goal (LTG) Pt to improve right shoulder ROM to 100? flexion and abduction and increase IR to reach back to at least his left SI area in order to better propel his wheelchair independently. LTG Duration 03/14/22 Two Impairment Pt unable to step inside // bars due to severe ankle weakness and neuropath Usp Goal (LTG) Pt to ambulate 50' using least restrictive AD CGA while wearing appropriate AFOs to limit impact of foot drop to allow him to be more functionally mobile at home, including getting to the bathroom. LTG Duration 03/14/22 One Impairment Pt does not have an appropriate home exercise program Short Term Goal (STG) Pt to be independent and compliant with an appropriate HEP STG Duration 01/28/22 Assessment Summary Assessment Pt much better able to participate in today's session , he and very happy with ability to take a few forward steps with assistance. Has appt to get measured for AFOs later this week. Physical Therapy Plan Frequency and Duration Frequency of Treatment 2x/Week Duration of Treatment 90 days Plan of Care Start Date 12/14/21 Plan of Care End Date 03/14/22 Therapeutic Interventions Therapeutic Interventions Aquatic Therapy,Balance Training,Coordination Training ,Gait Training,Home Exercise Program,Lymphedema Management, Manual Therapy,Neuromuscular Re-education,Orthotic/ Prosthetic Management,Patient/ Caregiver Education,Self-Care/ Home Management,Soft Tissue Mobilization,Therapeutic Activities,Therapeutic Exercises,Wheelchair Management Modalities Cold Pack/Ice Massage,Electric Stimulation,Hot Packs, Ultrasound Next Visit Focus/Plan Next Note Type Treatment Note Next Visit Plan Activity tolerance, sit<-> stand, LE strengthening, UE ROM
--- NOTE | 2021-12-23 15:16 | PT.OTN ---
Current Diagnoses Muscle weakness (generalized) (12/23/21) Unspecified abnormalities of gait and mobility (12/23/21) Other symptoms and signs involving the musculoskeletal system (12/23/21) Other fatigue (12/23/21) Other reduced mobility (12/23/21) Physical Therapy Treatment Note PT-OP-A Visit Information Start: 12/14/21 17:57 Freq: Status: Active Protocol: Document 12/23/21 14:30 DCW (Rec: 12/23/21 15:16 DCW [id number]) Out-Patient Physical Therapy Visit Information Visit Information Visit Type Treatment Note Visit Start Time 14:30 Visit Stop Time 15:15 Total Visit Minutes 45 Visit Number 4 Number of CREATIVE/ART DIRECTOR Visits 0 Evaluation Information Evaluation Date 12/14/21 PT-OP-B Current Condition Start: 12/14/21 17:57 Freq: Status: Active Protocol: Document 12/14/21 16:00 DCW (Rec: 12/14/21 18:10 DCW [id number]) Current Condition History of Current Condition Onset Date February, Current Complaints Physical debility, deconditioning, limited mobility, weakness History of Current Condition Pt is a 71 year old male presenting with a very complicated medical history. Pt was vacationing in [place] in February,, when he was hospitalized with a bacterial respiratory infection. He was there for two weeks, and then airlifted to [facility] in [place], where he remained for 90 days, including a long stay on a respirator. He was released from [facility] on May 17, 2021 and sent to a rehab facility in [place] until October 06, 2021, and then finally released home. Pt had home health PT for a few weeks, but they stopped coming after pt developed pressure ulcers. Pt is now healed, and feeling improved enough to begin outpatient therapy. Pt is dramatically deconditioned, limited to w/c mobility, and only uses a FWW and Mod Ax1 to stand for 1-2 minutes at a time. Pt complains of ongoing neuropathy and foot drop, both of which began during his hospital stay. is primary caregiver, but they do have an additional caregiver come for four hours a day. They have purchased a recumbent elliptical for exercise, and pt has improved from using it on level 0 for 5 minutes to level 8 for an hour or more. Pt notes that he has been trying to get a prescription for AFOs to help with his drop foot, as he is unable to take a step due to 0/5 ankle weakness. Able to slowly mobilize himself in his manual wheelchair, but unable to propell himself with his LEs. Treatment Goals Patient/Caregiver Goals Pt wants to be able to get up and take a few steps. Personal Factors Other Personal Factors That May Effect Obesity, limited R shoulder Therapy/Recovery mobility, severe ankle weakness/drop foot, Hx PE, lymphedema, neuropathy PT-OP-C Subjective Start: 12/14/21 17:57 Freq: Status: Active Protocol: Document 12/23/21 14:30 DCW (Rec: 12/23/21 15:16 DCW [id number]) OP-PT Subjective Patient Comments Patient Comments PT unable to make it to his orthotic appintment today due to car trouble. PT-OP-G Mobility & Gait Start: 12/14/21 17:57 Freq: Status: Active Protocol: Document 12/14/21 16:00 DCW (Rec: 12/15/21 09:08 DCW [id number]) OP Mobility Evaluation Bed Mobility Rolling Per pt's , Indep, occasional Min A Transfers Sit to Stand Pt able to sit->stand from w/c CGA using UE assist on // bars. Pt requires Mod Ax2 at home with and caregiver holding FWW stable so he can pull himself up. Wheelchair Management Type of Wheelchair Manual Assessment Details Pt able to use UE to propel w/ c at a very slow speed, limited by overall arm weakness and decreased shoulder ROM. Barely able to propel with LEs, very weak HS pull with limited traction on floor due to ankle weakness and neuropathy. OP Gait Assessment Comments Gait Comments Unwilling and unable to attempt to ambulate at this time, even in parallel bars. Severe foot drop with neuropathy makes pt unable to take any steps forward due to fear of falling and tripping hazard. PT-OP-K Range of Motion Start: 12/14/21 17:57 Freq: Status: Active Protocol: Document 12/14/21 16:00 DCW (Rec: 12/15/21 09:08 DCW [id number]) Shoulder Goniometric Range of Motion Shoulder Right Active Shoulder ROM WFL No Testing Position Sitting Flexion 50 Abduction 50 Internal Rotation Behind Back (text) Unable to reach back past lateral hip Left Active Shoulder ROM WFL No Testing Position Sitting Flexion 90 Abduction 110 Internal Rotation Behind Back (text) L PSIS PT-OP-M Strength Start: 12/14/21 17:57 Freq: Status: Active Protocol: Document 12/14/21 16:00 DCW (Rec: 12/14/21 18:01 DCW [id number]) Hip Strength Hip Manual Muscle Testing Right Flexion (L2) 2 Poor Abduction 3+ Fair+ Adduction 3- Fair- Left Flexion (L2) 2 Poor Abduction 3+ Fair+ Adduction 3- Fair- Knee Strength Knee Manual Muscle Testing Right Flexion (S2) 2+ Poor+ Extension (L3) 4+ Good+ Left Flexion (S2) 3 Fair Extension (L3) 4+ Good+ Ankle/Foot Strength Ankle and Foot Manual Muscle Testing Right Dorsiflexion (L4) 0 Zero Plantarflexion (S1) 2+ Poor+ Inversion 0 Zero Eversion (S1) 0 Zero Left Dorsiflexion (L4) 0 Zero Plantarflexion (S1) 1 Trace Inversion 0 Zero Eversion (S1) 0 Zero PT-OP-Q Treatments Start: 12/14/21 17:57 Freq: Status: Active Protocol: Document 12/23/21 14:30 DCW (Rec: 12/23/21 15:16 DCW [id number]) Therapeutic Exercises Sitting Exercises Shoulder PROM Sitting Exercise Name Abduction, ER, Flexion /c PVC Side right Therapeutic Activity Therapeutic Activity Sit<->stand Name StS x6 Comments Min Ax1 Gait Training Gait Activity Pre-gait Description Pre-gait weight shift Device Used // bars Level of Assistance Min Ax1 Distance/Duration x3 Assisted gait Distance/Duration 5 x2 Comments Min Ax1 to advance right foot. Using straps attached to gait belt in order to limit foot drop PT-OP-T Assessment and Plan Start: 12/14/21 17:57 Freq: Status: Active Protocol: Document 12/23/21 14:30 DCW (Rec: 12/23/21 15:16 DCW [id number]) Physical Therapy Assessment Impairments Impairments Activity Tolerance,Balance, Edema,Functional Activities, Functional Mobility,Gait,ROM, Sensation,Strength,Tone, Transfers Other Concerns Fall Risk Severe falls risk Goals Three Impairment Pt unable to propel himself well in w/c due to severely limited R UE ROM Long-Term Goal (LTG) Pt to improve right shoulder ROM to 100? flexion and abduction and increase IR to reach back to at least his left SI area in order to better propel his wheelchair independently. LTG Duration 03/14/22 Two Impairment Pt unable to step inside // bars due to severe ankle weakness and neuropath Long-Term Goal (LTG) Pt to ambulate 50' using least restrictive AD CGA while wearing appropriate AFOs to limit impact of foot drop to allow him to be more functionally mobile at home, including getting to the bathroom. LTG Duration 03/14/22 One Impairment Pt does not have an appropriate home exercise program Short Term Goal (STG) Pt to be independent and compliant with an appropriate HEP STG Duration 01/28/22 Assessment Summary Assessment Pt struggled more with advancing his feet today than he did last visit, but sit<-> stands and weight shifting both improved. Started more PROM of his R shoulder to help with UE assist during sit<-> stand and propelling his wheelchair. Physical Therapy Plan Frequency and Duration Frequency of Treatment 2x/Week Duration of Treatment 90 days Plan of Care Start Date 12/14/21 Plan of Care End Date 03/14/22 Therapeutic Interventions Therapeutic Interventions Aquatic Therapy,Balance Training,Coordination Training ,Gait Training,Home Exercise Program,Lymphedema Management, Manual Therapy,Neuromuscular Re-education,Orthotic/ Prosthetic Management,Patient/ Caregiver Education,Self-Care/ Home Management,Soft Tissue Mobilization,Therapeutic Activities,Therapeutic Exercises,Wheelchair Management Modalities Cold Pack/Ice Massage,Electric Stimulation,Hot Packs, Ultrasound Next Visit Focus/Plan Next Note Type Treatment Note Next Visit Plan Activity tolerance, sit<-> stand, LE strengthening, UE ROM
--- NOTE | 2021-12-27 17:33 | PT.OTN ---
Current Diagnoses Muscle weakness (generalized) (12/27/21) Unspecified abnormalities of gait and mobility (12/27/21) Other symptoms and signs involving the musculoskeletal system (12/27/21) Other fatigue (12/27/21) Other reduced mobility (12/27/21) Physical Therapy Treatment Note PT-OP-A Visit Information Start: 12/14/21 17:57 Freq: Status: Active Protocol: Document 12/27/21 16:45 DCW (Rec: 12/27/21 17:33 DCW [id number]) Out-Patient Physical Therapy Visit Information Visit Information Visit Type Treatment Note Visit Start Time 16:45 Visit Stop Time 17:30 Total Visit Minutes 45 Visit Number 5 Number of ASSEMBLER ADJUSTER Visits 0 Evaluation Information Evaluation Date 12/14/21 PT-OP-B Current Condition Start: 12/14/21 17:57 Freq: Status: Active Protocol: Document 12/14/21 16:00 DCW (Rec: 12/14/21 18:10 DCW [id number]) Current Condition History of Current Condition Onset Date February, Current Complaints Physical debility, deconditioning, limited mobility, weakness History of Current Condition Pt is a 71 year old male presenting with a very complicated medical history. Pt was vacationing in [place] in February,, when he was hospitalized with a bacterial respiratory infection. He was there for two weeks, and then airlifted to [facility] in [place], where he remained for 90 days, including a long stay on a respirator. He was released from [facility] on May 17, 2021 and sent to a rehab facility in [place] until October 06, 2021, and then finally released home. Pt had home health PT for a few weeks, but they stopped coming after pt developed pressure ulcers. Pt is now healed, and feeling improved enough to begin outpatient therapy. Pt is dramatically deconditioned, limited to w/c mobility, and only uses a FWW and Mod Ax1 to stand for 1-2 minutes at a time. Pt complains of ongoing neuropathy and foot drop, both of which began during his hospital stay. is primary caregiver, but they do have an additional caregiver come for four hours a day. They have purchased a recumbent elliptical for exercise, and pt has improved from using it on level 0 for 5 minutes to level 8 for an hour or more. Pt notes that he has been trying to get a prescription for AFOs to help with his drop foot, as he is unable to take a step due to 0/5 ankle weakness. Able to slowly mobilize himself in his manual wheelchair, but unable to propell himself with his LEs. Treatment Goals Patient/Caregiver Goals Pt wants to be able to get up and take a few steps. Personal Factors Other Personal Factors That May Effect Obesity, limited R shoulder Therapy/Recovery mobility, severe ankle weakness/drop foot, Hx PE, lymphedema, neuropathy PT-OP-C Subjective Start: 12/14/21 17:57 Freq: Status: Active Protocol: Document 12/27/21 16:45 DCW (Rec: 12/27/21 17:33 DCW [id number]) OP-PT Subjective Patient Comments Patient Comments Pt has not done much exercise today due to car difficulty leading to a busy day. PT-OP-G Mobility & Gait Start: 12/14/21 17:57 Freq: Status: Active Protocol: Document 12/14/21 16:00 DCW (Rec: 12/15/21 09:08 DCW [id number]) OP Mobility Evaluation Bed Mobility Rolling Per pt's , Indep, occasional Min A Transfers Sit to Stand Pt able to sit->stand from w/c CGA using UE assist on // bars. Pt requires Mod Ax2 at home with and caregiver holding FWW stable so he can pull himself up. Wheelchair Management Type of Wheelchair Manual Assessment Details Pt able to use UE to propel w/ c at a very slow speed, limited by overall arm weakness and decreased shoulder ROM. Barely able to propel with LEs, very weak HS pull with limited traction on floor due to ankle weakness and neuropathy. OP Gait Assessment Comments Gait Comments Unwilling and unable to attempt to ambulate at this time, even in parallel bars. Severe foot drop with neuropathy makes pt unable to take any steps forward due to fear of falling and tripping hazard. PT-OP-K Range of Motion Start: 12/14/21 17:57 Freq: Status: Active Protocol: Document 12/14/21 16:00 DCW (Rec: 12/15/21 09:08 DCW [id number]) Shoulder Goniometric Range of Motion Shoulder Right Active Shoulder ROM WFL No Testing Position Sitting Flexion 50 Abduction 50 Internal Rotation Behind Back (text) Unable to reach back past lateral hip Left Active Shoulder ROM WFL No Testing Position Sitting Flexion 90 Abduction 110 Internal Rotation Behind Back (text) L PSIS PT-OP-M Strength Start: 12/14/21 17:57 Freq: Status: Active Protocol: Document 12/14/21 16:00 DCW (Rec: 12/14/21 18:01 DCW [id number]) Hip Strength Hip Manual Muscle Testing Right Flexion (L2) 2 Poor Abduction 3+ Fair+ Adduction 3- Fair- Left Flexion (L2) 2 Poor Abduction 3+ Fair+ Adduction 3- Fair- Knee Strength Knee Manual Muscle Testing Right Flexion (S2) 2+ Poor+ Extension (L3) 4+ Good+ Left Flexion (S2) 3 Fair Extension (L3) 4+ Good+ Ankle/Foot Strength Ankle and Foot Manual Muscle Testing Right Dorsiflexion (L4) 0 Zero Plantarflexion (S1) 2+ Poor+ Inversion 0 Zero Eversion (S1) 0 Zero Left Dorsiflexion (L4) 0 Zero Plantarflexion (S1) 1 Trace Inversion 0 Zero Eversion (S1) 0 Zero PT-OP-Q Treatments Start: 12/14/21 17:57 Freq: Status: Active Protocol: Document 12/27/21 16:45 DCW (Rec: 12/27/21 17:33 DCW [id number]) Therapeutic Exercises Sitting Exercises Shoulder PROM Sitting Exercise Name Abduction, ER, Flexion /c PVC Side right Standing Exercises TKE Standing Exercise Name TKE Side bilateral Resistance Lv 1 Equipment Used // bars Comments T-band anchored to therapist knee Therapeutic Activity Therapeutic Activity Sit<->stand Name StS x6 Comments Min Ax1 Gait Training Gait Activity Pre-gait Description Pre-gait weight shift Device Used // bars Level of Assistance Min Ax1 Distance/Duration x3 Assisted gait Distance/Duration 8' x2 Comments Min Ax1 to advance right foot. Using straps attached to gait belt in order to limit foot drop PT-OP-T Assessment and Plan Start: 12/14/21 17:57 Freq: Status: Active Protocol: Document 12/27/21 16:45 DCW (Rec: 12/27/21 17:33 DCW [id number]) Physical Therapy Assessment Impairments Impairments Activity Tolerance,Balance, Edema,Functional Activities, Functional Mobility,Gait,ROM, Sensation,Strength,Tone, Transfers Goals Three Impairment Pt unable to propel himself well in w/c due to severely limited R UE ROM Assisted Goal (LTG) Pt to improve right shoulder ROM to 100? flexion and abduction and increase IR to reach back to at least his left SI area in order to better propel his wheelchair independently. LTG Duration 03/14/22 Two Impairment Pt unable to step inside // bars due to severe ankle weakness and neuropath Cafeteria Supervisor Goal (LTG) Pt to ambulate 50' using least restrictive AD CGA while wearing appropriate AFOs to limit impact of foot drop to allow him to be more functionally mobile at home, including getting to the bathroom. LTG Duration 03/14/22 One Impairment Pt does not have an appropriate home exercise program Short Term Goal (STG) Pt to be independent and compliant with an appropriate HEP STG Duration 01/28/22 Assessment Summary Assessment Pt able to do more today, improved gait and sit<->stands , although advancing right foot during gait still heavily reliant on therapist. Added TKE standing in // bars, pt fatigued quickly, but was able to do good work while standing. Physical Therapy Plan Frequency and Duration Frequency of Treatment 2x/Week Plan of Care Start Date 12/14/21 Plan of Care End Date 03/14/22 Therapeutic Interventions Therapeutic Interventions Aquatic Therapy,Balance Training,Coordination Training ,Gait Training,Home Exercise Program,Lymphedema Management, Manual Therapy,Neuromuscular Re-education,Orthotic/ Prosthetic Management,Patient/ Caregiver Education,Self-Care/ Home Management,Soft Tissue Mobilization,Therapeutic Activities,Therapeutic Exercises,Wheelchair Management Modalities Cold Pack/Ice Massage,Electric Stimulation,Hot Packs, Ultrasound Next Visit Focus/Plan Next Note Type Treatment Note Next Visit Plan Activity tolerance, sit<-> stand, LE strengthening, UE ROM
--- NOTE | 2021-12-30 15:58 | PT.OTN ---
Current Diagnoses Muscle weakness (generalized) (12/30/21) Unspecified abnormalities of gait and mobility (12/30/21) Other symptoms and signs involving the musculoskeletal system (12/30/21) Other fatigue (12/30/21) Other reduced mobility (12/30/21) Physical Therapy Treatment Note PT-OP-A Visit Information Start: 12/14/21 17:57 Freq: Status: Active Protocol: Document 12/30/21 15:15 DCW (Rec: 12/30/21 15:53 DCW [id number]) Out-Patient Physical Therapy Visit Information Visit Information Visit Type Treatment Note Visit Start Time 15:15 Visit Stop Time 16:00 Total Visit Minutes 45 Visit Number 6 Number of FOREIGN LAW CONSULTANT Visits 0 Evaluation Information Evaluation Date 12/14/21 PT-OP-B Current Condition Start: 12/14/21 17:57 Freq: Status: Active Protocol: Document 12/14/21 16:00 DCW (Rec: 12/14/21 18:10 DCW [id number]) Current Condition History of Current Condition Onset Date February, Current Complaints Physical debility, deconditioning, limited mobility, weakness History of Current Condition Pt is a 71 year old male presenting with a very complicated medical history. Pt was vacationing in [place] in February,, when he was hospitalized with a bacterial respiratory infection. He was there for two weeks, and then airlifted to [facility] in [place], where he remained for 90 days, including a long stay on a respirator. He was released from [facility] on May 17, 2021 and sent to a rehab facility in [place] until October 06, 2021, and then finally released home. Pt had home health PT for a few weeks, but they stopped coming after pt developed pressure ulcers. Pt is now healed, and feeling improved enough to begin outpatient therapy. Pt is dramatically deconditioned, limited to w/c mobility, and only uses a FWW and Mod Ax1 to stand for 1-2 minutes at a time. Pt complains of ongoing neuropathy and foot drop, both of which began during his hospital stay. is primary caregiver, but they do have an additional caregiver come for four hours a day. They have purchased a recumbent elliptical for exercise, and pt has improved from using it on level 0 for 5 minutes to level 8 for an hour or more. Pt notes that he has been trying to get a prescription for AFOs to help with his drop foot, as he is unable to take a step due to 0/5 ankle weakness. Able to slowly mobilize himself in his manual wheelchair, but unable to propell himself with his LEs. Treatment Goals Patient/Caregiver Goals Pt wants to be able to get up and take a few steps. Personal Factors Other Personal Factors That May Effect Obesity, limited R shoulder Therapy/Recovery mobility, severe ankle weakness/drop foot, Hx PE, lymphedema, neuropathy PT-OP-C Subjective Start: 12/14/21 17:57 Freq: Status: Active Protocol: Document 12/30/21 15:15 DCW (Rec: 12/30/21 15:53 DCW [id number]) OP-PT Subjective Patient Comments Patient Comments Pt arrives today with a left AFO, notes they had to order a R one. PT-OP-G Mobility & Gait Start: 12/14/21 17:57 Freq: Status: Active Protocol: Document 12/14/21 16:00 DCW (Rec: 12/15/21 09:08 DCW [id number]) OP Mobility Evaluation Bed Mobility Rolling Per pt's , Indep, occasional Min A Transfers Sit to Stand Pt able to sit->stand from w/c CGA using UE assist on // bars. Pt requires Mod Ax2 at home with and caregiver holding FWW stable so he can pull himself up. Wheelchair Management Type of Wheelchair Manual Assessment Details Pt able to use UE to propel w/ c at a very slow speed, limited by overall arm weakness and decreased shoulder ROM. Barely able to propel with LEs, very weak HS pull with limited traction on floor due to ankle weakness and neuropathy. OP Gait Assessment Comments Gait Comments Unwilling and unable to attempt to ambulate at this time, even in parallel bars. Severe foot drop with neuropathy makes pt unable to take any steps forward due to fear of falling and tripping hazard. PT-OP-K Range of Motion Start: 12/14/21 17:57 Freq: Status: Active Protocol: Document 12/14/21 16:00 DCW (Rec: 12/15/21 09:08 DCW [id number]) Shoulder Goniometric Range of Motion Shoulder Right Active Shoulder ROM WFL No Testing Position Sitting Flexion 50 Abduction 50 Internal Rotation Behind Back (text) Unable to reach back past lateral hip Left Active Shoulder ROM WFL No Testing Position Sitting Flexion 90 Abduction 110 Internal Rotation Behind Back (text) L PSIS PT-OP-M Strength Start: 12/14/21 17:57 Freq: Status: Active Protocol: Document 12/14/21 16:00 DCW (Rec: 12/14/21 18:01 DCW [id number]) Hip Strength Hip Manual Muscle Testing Right Flexion (L2) 2 Poor Abduction 3+ Fair+ Adduction 3- Fair- Left Flexion (L2) 2 Poor Abduction 3+ Fair+ Adduction 3- Fair- Knee Strength Knee Manual Muscle Testing Right Flexion (S2) 2+ Poor+ Extension (L3) 4+ Good+ Left Flexion (S2) 3 Fair Extension (L3) 4+ Good+ Ankle/Foot Strength Ankle and Foot Manual Muscle Testing Right Dorsiflexion (L4) 0 Zero Plantarflexion (S1) 2+ Poor+ Inversion 0 Zero Eversion (S1) 0 Zero Left Dorsiflexion (L4) 0 Zero Plantarflexion (S1) 1 Trace Inversion 0 Zero Eversion (S1) 0 Zero PT-OP-Q Treatments Start: 12/14/21 17:57 Freq: Status: Active Protocol: Document 12/30/21 15:15 DCW (Rec: 12/30/21 15:53 DCW [id number]) Therapeutic Exercises Sitting Exercises Seated crunch Sitting Exercise Name Seated crunch/reverse crunch Resistance Lv 3 Shoulder PROM Sitting Exercise Name Abduction, ER, Flexion /c PVC Side right Gait Training Gait Activity Stance Description Double leg stance /s UE support Device Used // bars Comments Able to stand 2-3 seconds with Min Ax1 for stability. Pre-gait Description Pre-gait weight shift Device Used // bars Level of Assistance Min Ax1 Distance/Duration 6' Comments Attempting to lift heel off floor during weight shift. Assisted gait Device Used // bars Distance/Duration 8' x2 Comments Min Ax1 to advance right foot. Using straps attached to gait belt in order to limit R foot drop, L foot using AFO PT-OP-T Assessment and Plan Start: 12/14/21 17:57 Freq: Status: Active Protocol: Document 12/30/21 15:15 DCW (Rec: 12/30/21 15:53 DCW [id number]) Physical Therapy Assessment Impairments Impairments Activity Tolerance,Balance, Edema,Functional Activities, Functional Mobility,Gait,ROM, Sensation,Strength,Tone, Transfers Goals Three Impairment Pt unable to propel himself well in w/c due to severely limited R UE ROM Gimp Buttonhole Machine Operator Goal (LTG) Pt to improve right shoulder ROM to 100? flexion and abduction and increase IR to reach back to at least his left SI area in order to better propel his wheelchair independently. LTG Duration 03/14/22 Two Impairment Pt unable to step inside // bars due to severe ankle weakness and neuropath Prison Goal (LTG) Pt to ambulate 50' using least restrictive AD CGA while wearing appropriate AFOs to limit impact of foot drop to allow him to be more functionally mobile at home, including getting to the bathroom. LTG Duration 03/14/22 One Impairment Pt does not have an appropriate home exercise program Short Term Goal (STG) Pt to be independent and compliant with an appropriate HEP STG Duration 01/28/22 Assessment Summary Assessment Pt showing much better confidence and stability in standing with new AFO, should continue to improve with addition of R AFO when it comes in next week. Added some core/back strengthening to HEP. Physical Therapy Plan Frequency and Duration Frequency of Treatment 2x/Week Plan of Care Start Date 12/14/21 Plan of Care End Date 03/14/22 Therapeutic Interventions Therapeutic Interventions Aquatic Therapy,Balance Training,Coordination Training ,Gait Training,Home Exercise Program,Lymphedema Management, Manual Therapy,Neuromuscular Re-education,Orthotic/ Prosthetic Management,Patient/ Caregiver Education,Self-Care/ Home Management,Soft Tissue Mobilization,Therapeutic Activities,Therapeutic Exercises,Wheelchair Management Modalities Cold Pack/Ice Massage,Electric Stimulation,Hot Packs, Ultrasound Next Visit Focus/Plan Next Note Type Treatment Note Next Visit Plan Activity tolerance, sit<-> stand, LE strengthening, UE ROM
--- NOTE | 2022-01-03 16:00 | PT.OTN ---
Current Diagnoses Muscle weakness (generalized) (01/03/22) Unspecified abnormalities of gait and mobility (01/03/22) Other symptoms and signs involving the musculoskeletal system (01/03/22) Other fatigue (01/03/22) Other reduced mobility (01/03/22) Physical Therapy Treatment Note PT-OP-A Visit Information Start: 12/14/21 17:57 Freq: Status: Active Protocol: Document 01/03/22 15:20 DCW (Rec: 01/03/22 16:00 DCW [id number]) Out-Patient Physical Therapy Visit Information Visit Information Visit Type Treatment Note Visit Start Time 15:20 Visit Stop Time 16:00 Total Visit Minutes 40 Visit Number 7 Number of SURGICAL LEAD Visits 0 Evaluation Information Evaluation Date 12/14/21 PT-OP-B Current Condition Start: 12/14/21 17:57 Freq: Status: Active Protocol: Document 12/14/21 16:00 DCW (Rec: 12/14/21 18:10 DCW [id number]) Current Condition History of Current Condition Onset Date February, Current Complaints Physical debility, deconditioning, limited mobility, weakness History of Current Condition Pt is a 71 year old male presenting with a very complicated medical history. Pt was vacationing in [place] in February,, when he was hospitalized with a bacterial respiratory infection. He was there for two weeks, and then airlifted to [facility] in [place], where he remained for 90 days, including a long stay on a respirator. He was released from [facility] on May 17, 2021 and sent to a rehab facility in [place] until October 06, 2021, and then finally released home. Pt had home health PT for a few weeks, but they stopped coming after pt developed pressure ulcers. Pt is now healed, and feeling improved enough to begin outpatient therapy. Pt is dramatically deconditioned, limited to w/c mobility, and only uses a FWW and Mod Ax1 to stand for 1-2 minutes at a time. Pt complains of ongoing neuropathy and foot drop, both of which began during his hospital stay. is primary caregiver, but they do have an additional caregiver come for four hours a day. They have purchased a recumbent elliptical for exercise, and pt has improved from using it on level 0 for 5 minutes to level 8 for an hour or more. Pt notes that he has been trying to get a prescription for AFOs to help with his drop foot, as he is unable to take a step due to 0/5 ankle weakness. Able to slowly mobilize himself in his manual wheelchair, but unable to propell himself with his LEs. Treatment Goals Patient/Caregiver Goals Pt wants to be able to get up and take a few steps. Personal Factors Other Personal Factors That May Effect Obesity, limited R shoulder Therapy/Recovery mobility, severe ankle weakness/drop foot, Hx PE, lymphedema, neuropathy PT-OP-C Subjective Start: 12/14/21 17:57 Freq: Status: Active Protocol: Document 01/03/22 15:20 DCW (Rec: 01/03/22 16:00 DCW [id number]) OP-PT Subjective Patient Comments Patient Comments Pt received R AFO earlier this afternoon. PT-OP-G Mobility & Gait Start: 12/14/21 17:57 Freq: Status: Active Protocol: Document 12/14/21 16:00 DCW (Rec: 12/15/21 09:08 DCW [id number]) OP Mobility Evaluation Bed Mobility Rolling Per pt's , Indep, occasional Min A Transfers Sit to Stand Pt able to sit->stand from w/c CGA using UE assist on // bars. Pt requires Mod Ax2 at home with and caregiver holding FWW stable so he can pull himself up. Wheelchair Management Type of Wheelchair Manual Assessment Details Pt able to use UE to propel w/ c at a very slow speed, limited by overall arm weakness and decreased shoulder ROM. Barely able to propel with LEs, very weak HS pull with limited traction on floor due to ankle weakness and neuropathy. OP Gait Assessment Comments Gait Comments Unwilling and unable to attempt to ambulate at this time, even in parallel bars. Severe foot drop with neuropathy makes pt unable to take any steps forward due to fear of falling and tripping hazard. PT-OP-K Range of Motion Start: 12/14/21 17:57 Freq: Status: Active Protocol: Document 12/14/21 16:00 DCW (Rec: 12/15/21 09:08 DCW [id number]) Shoulder Goniometric Range of Motion Shoulder Right Active Shoulder ROM WFL No Testing Position Sitting Flexion 50 Abduction 50 Internal Rotation Behind Back (text) Unable to reach back past lateral hip Left Active Shoulder ROM WFL No Testing Position Sitting Flexion 90 Abduction 110 Internal Rotation Behind Back (text) L PSIS PT-OP-M Strength Start: 12/14/21 17:57 Freq: Status: Active Protocol: Document 12/14/21 16:00 DCW (Rec: 12/14/21 18:01 DCW [id number]) Hip Strength Hip Manual Muscle Testing Right Flexion (L2) 2 Poor Abduction 3+ Fair+ Adduction 3- Fair- Left Flexion (L2) 2 Poor Abduction 3+ Fair+ Adduction 3- Fair- Knee Strength Knee Manual Muscle Testing Right Flexion (S2) 2+ Poor+ Extension (L3) 4+ Good+ Left Flexion (S2) 3 Fair Extension (L3) 4+ Good+ Ankle/Foot Strength Ankle and Foot Manual Muscle Testing Right Dorsiflexion (L4) 0 Zero Plantarflexion (S1) 2+ Poor+ Inversion 0 Zero Eversion (S1) 0 Zero Left Dorsiflexion (L4) 0 Zero Plantarflexion (S1) 1 Trace Inversion 0 Zero Eversion (S1) 0 Zero PT-OP-Q Treatments Start: 12/14/21 17:57 Freq: Status: Active Protocol: Document 01/03/22 15:20 DCW (Rec: 01/03/22 16:00 DCW [id number]) Therapeutic Exercises Sitting Exercises Shoulder PROM Sitting Exercise Name Abduction, ER, Flexion /c PVC Side right Therapeutic Activity Therapeutic Activity Sit<->stand Name StS x8 Comments Min Ax1 Gait Training Gait Activity Stance Description Double leg stance /s UE support Device Used // bars Comments Able to stand 2-3 seconds with Min Ax1 for stability. Pre-gait Description Pre-gait weight shift Device Used // bars Level of Assistance Min Ax1 Distance/Duration 6' Comments Attempting to lift heel off floor during weight shift. Assisted gait Device Used // bars Distance/Duration 8' x2 Comments Min Ax1 to advance right foot, manual assistand for right knee flexion and right foot clearance PT-OP-T Assessment and Plan Start: 12/14/21 17:57 Freq: Status: Active Protocol: Document 01/03/22 15:20 DCW (Rec: 01/03/22 16:00 DCW [id number]) Physical Therapy Assessment Impairments Impairments Activity Tolerance,Balance, Edema,Functional Activities, Functional Mobility,Gait,ROM, Sensation,Strength,Tone, Transfers Goals Three Impairment Pt unable to propel himself well in w/c due to severely limited R UE ROM Bumboater Goal (LTG) Pt to improve right shoulder ROM to 100? flexion and abduction and increase IR to reach back to at least his left SI area in order to better propel his wheelchair independently. LTG Duration 03/14/22 Two Impairment Pt unable to step inside // bars due to severe ankle weakness and neuropath Bumboater Goal (LTG) Pt to ambulate 50' using least restrictive AD CGA while wearing appropriate AFOs to limit impact of foot drop to allow him to be more functionally mobile at home, including getting to the bathroom. LTG Duration 03/14/22 One Impairment Pt does not have an appropriate home exercise program Short Term Goal (STG) Pt to be independent and compliant with an appropriate HEP STG Duration 01/28/22 Assessment Summary Assessment Sit<->stand and weight- shifting much improved today, showing good progress with advancing feet during gait, especially left foot. Right foot still requires assistance from therapist, doing better today with new AFO. Physical Therapy Plan Frequency and Duration Frequency of Treatment 2x/Week Plan of Care Start Date 12/14/21 Plan of Care End Date 03/14/22 Therapeutic Interventions Therapeutic Interventions Aquatic Therapy,Balance Training,Coordination Training ,Gait Training,Home Exercise Program,Lymphedema Management, Manual Therapy,Neuromuscular Re-education,Orthotic/ Prosthetic Management,Patient/ Caregiver Education,Self-Care/ Home Management,Soft Tissue Mobilization,Therapeutic Activities,Therapeutic Exercises,Wheelchair Management Modalities Cold Pack/Ice Massage,Electric Stimulation,Hot Packs, Ultrasound Next Visit Focus/Plan Next Note Type Treatment Note Next Visit Plan Activity tolerance, sit<-> stand, LE strengthening, UE ROM
--- NOTE | 2022-01-06 15:59 | PT.OTN ---
Current Diagnoses Muscle weakness (generalized) (01/06/22) Unspecified abnormalities of gait and mobility (01/06/22) Other symptoms and signs involving the musculoskeletal system (01/06/22) Other fatigue (01/06/22) Other reduced mobility (01/06/22) Physical Therapy Treatment Note PT-OP-A Visit Information Start: 12/14/21 17:57 Freq: Status: Active Protocol: Document 01/06/22 15:15 DCW (Rec: 01/06/22 15:59 DCW [id number]) Out-Patient Physical Therapy Visit Information Visit Information Visit Type Treatment Note Visit Start Time 15:15 Visit Stop Time 16:00 Total Visit Minutes 45 Visit Number 8 Number of FUEL TRUCK DRIVER Visits 0 Evaluation Information Evaluation Date 12/14/21 PT-OP-B Current Condition Start: 12/14/21 17:57 Freq: Status: Active Protocol: Document 12/14/21 16:00 DCW (Rec: 12/14/21 18:10 DCW [id number]) Current Condition History of Current Condition Onset Date February, Current Complaints Physical debility, deconditioning, limited mobility, weakness History of Current Condition Pt is a 71 year old male presenting with a very complicated medical history. Pt was vacationing in [place] in February,, when he was hospitalized with a bacterial respiratory infection. He was there for two weeks, and then airlifted to [facility] in [place], where he remained for 90 days, including a long stay on a respirator. He was released from [facility] on May 17, 2021 and sent to a rehab facility in [place] until October 06, 2021, and then finally released home. Pt had home health PT for a few weeks, but they stopped coming after pt developed pressure ulcers. Pt is now healed, and feeling improved enough to begin outpatient therapy. Pt is dramatically deconditioned, limited to w/c mobility, and only uses a FWW and Mod Ax1 to stand for 1-2 minutes at a time. Pt complains of ongoing neuropathy and foot drop, both of which began during his hospital stay. is primary caregiver, but they do have an additional caregiver come for four hours a day. They have purchased a recumbent elliptical for exercise, and pt has improved from using it on level 0 for 5 minutes to level 8 for an hour or more. Pt notes that he has been trying to get a prescription for AFOs to help with his drop foot, as he is unable to take a step due to 0/5 ankle weakness. Able to slowly mobilize himself in his manual wheelchair, but unable to propell himself with his LEs. Treatment Goals Patient/Caregiver Goals Pt wants to be able to get up and take a few steps. Personal Factors Other Personal Factors That May Effect Obesity, limited R shoulder Therapy/Recovery mobility, severe ankle weakness/drop foot, Hx PE, lymphedema, neuropathy PT-OP-C Subjective Start: 12/14/21 17:57 Freq: Status: Active Protocol: Document 01/06/22 15:15 DCW (Rec: 01/06/22 15:59 DCW [id number]) OP-PT Subjective Patient Comments Patient Comments Pt feeling good with his gains the last few visits. PT-OP-G Mobility & Gait Start: 12/14/21 17:57 Freq: Status: Active Protocol: Document 12/14/21 16:00 DCW (Rec: 12/15/21 09:08 DCW [id number]) OP Mobility Evaluation Bed Mobility Rolling Per pt's , Indep, occasional Min A Transfers Sit to Stand Pt able to sit->stand from w/c CGA using UE assist on // bars. Pt requires Mod Ax2 at home with and caregiver holding FWW stable so he can pull himself up. Wheelchair Management Type of Wheelchair Manual Assessment Details Pt able to use UE to propel w/ c at a very slow speed, limited by overall arm weakness and decreased shoulder ROM. Barely able to propel with LEs, very weak HS pull with limited traction on floor due to ankle weakness and neuropathy. OP Gait Assessment Comments Gait Comments Unwilling and unable to attempt to ambulate at this time, even in parallel bars. Severe foot drop with neuropathy makes pt unable to take any steps forward due to fear of falling and tripping hazard. PT-OP-K Range of Motion Start: 12/14/21 17:57 Freq: Status: Active Protocol: Document 12/14/21 16:00 DCW (Rec: 12/15/21 09:08 DCW [id number]) Shoulder Goniometric Range of Motion Shoulder Right Active Shoulder ROM WFL No Testing Position Sitting Flexion 50 Abduction 50 Internal Rotation Behind Back (text) Unable to reach back past lateral hip Left Active Shoulder ROM WFL No Testing Position Sitting Flexion 90 Abduction 110 Internal Rotation Behind Back (text) L PSIS PT-OP-M Strength Start: 12/14/21 17:57 Freq: Status: Active Protocol: Document 12/14/21 16:00 DCW (Rec: 12/14/21 18:01 DCW [id number]) Hip Strength Hip Manual Muscle Testing Right Flexion (L2) 2 Poor Abduction 3+ Fair+ Adduction 3- Fair- Left Flexion (L2) 2 Poor Abduction 3+ Fair+ Adduction 3- Fair- Knee Strength Knee Manual Muscle Testing Right Flexion (S2) 2+ Poor+ Extension (L3) 4+ Good+ Left Flexion (S2) 3 Fair Extension (L3) 4+ Good+ Ankle/Foot Strength Ankle and Foot Manual Muscle Testing Right Dorsiflexion (L4) 0 Zero Plantarflexion (S1) 2+ Poor+ Inversion 0 Zero Eversion (S1) 0 Zero Left Dorsiflexion (L4) 0 Zero Plantarflexion (S1) 1 Trace Inversion 0 Zero Eversion (S1) 0 Zero PT-OP-Q Treatments Start: 12/14/21 17:57 Freq: Status: Active Protocol: Document 01/06/22 15:15 DCW (Rec: 01/06/22 15:59 DCW [id number]) Therapeutic Exercises Sitting Exercises Chest Press Sitting Exercise Name UE Chest Press /c PVC UE PNF Sitting Exercise Name PNF B UE Lift Resistance 4.4# ball Therapeutic Activity Therapeutic Activity Sit<->stand Name StS x8 Comments Min Ax1->CGA Use of 2 seat lift SBA Gait Training Gait Activity Stance Description Double leg stance /s UE support Device Used // bars Comments Able to stand 2-3 seconds with Min Ax1 for stability. Pre-gait Description Pre-gait weight shift Device Used // bars Level of Assistance Min Ax1 Distance/Duration 6' Comments Weight-shift with standing marching Assisted gait Device Used // bars Distance/Duration 8' x3 Comments Min Ax1 to advance right foot first lap, the VCs for lifting foot up first instead of forward. Pt then able to perform next two laps without assistance for advancing foot. PT-OP-T Assessment and Plan Start: 12/14/21 17:57 Freq: Status: Active Protocol: Document 01/06/22 15:15 DCW (Rec: 01/06/22 15:59 DCW [id number]) Physical Therapy Assessment Impairments Impairments Activity Tolerance,Balance, Edema,Functional Activities, Functional Mobility,Gait,ROM, Sensation,Strength,Tone, Transfers Goals Three Impairment Pt unable to propel himself well in w/c due to severely limited R UE ROM Mcc Goal (LTG) Pt to improve right shoulder ROM to 100? flexion and abduction and increase IR to reach back to at least his left SI area in order to better propel his wheelchair independently. LTG Duration 03/14/22 Two Impairment Pt unable to step inside // bars due to severe ankle weakness and neuropath Mcc Goal (LTG) Pt to ambulate 50' using least restrictive AD CGA while wearing appropriate AFOs to limit impact of foot drop to allow him to be more functionally mobile at home, including getting to the bathroom. LTG Duration 03/14/22 One Impairment Pt does not have an appropriate home exercise program Short Term Goal (STG) Pt to be independent and compliant with an appropriate HEP STG Duration 01/28/22 Assessment Summary Assessment Great progress today, able to sit->stand and ambulate without only CGA for the first time today, although still relying heavily on UEs. Able to advance both LEs during gait with no assistance. Physical Therapy Plan Frequency and Duration Frequency of Treatment 2x/Week Plan of Care Start Date 12/14/21 Plan of Care End Date 03/14/22 Therapeutic Interventions Therapeutic Interventions Aquatic Therapy,Balance Training,Coordination Training ,Gait Training,Home Exercise Program,Lymphedema Management, Manual Therapy,Neuromuscular Re-education,Orthotic/ Prosthetic Management,Patient/ Caregiver Education,Self-Care/ Home Management,Soft Tissue Mobilization,Therapeutic Activities,Therapeutic Exercises,Wheelchair Management Modalities Cold Pack/Ice Massage,Electric Stimulation,Hot Packs, Ultrasound Next Visit Focus/Plan Next Note Type Treatment Note Next Visit Plan Activity tolerance, sit<-> stand, LE strengthening, UE ROM
--- NOTE | 2022-01-10 15:14 | PT.OTN ---
Current Diagnoses Muscle weakness (generalized) (01/10/22) Unspecified abnormalities of gait and mobility (01/10/22) Other symptoms and signs involving the musculoskeletal system (01/10/22) Other fatigue (01/10/22) Other reduced mobility (01/10/22) Physical Therapy Treatment Note PT-OP-A Visit Information Start: 12/14/21 17:57 Freq: Status: Active Protocol: Document 01/10/22 14:30 DCW (Rec: 01/10/22 15:14 DCW [id number]) Out-Patient Physical Therapy Visit Information Visit Information Visit Type Treatment Note Visit Start Time 14:30 Visit Stop Time 15:15 Total Visit Minutes 45 Visit Number 9 Number of ASSISTANT CROSS COUNTRY COACH Visits 0 Evaluation Information Evaluation Date 12/14/21 PT-OP-B Current Condition Start: 12/14/21 17:57 Freq: Status: Active Protocol: Document 12/14/21 16:00 DCW (Rec: 12/14/21 18:10 DCW [id number]) Current Condition History of Current Condition Onset Date February, Current Complaints Physical debility, deconditioning, limited mobility, weakness History of Current Condition Pt is a 71 year old male presenting with a very complicated medical history. Pt was vacationing in [place] in February,, when he was hospitalized with a bacterial respiratory infection. He was there for two weeks, and then airlifted to [facility] in [place], where he remained for 90 days, including a long stay on a respirator. He was released from [facility] on May 17, 2021 and sent to a rehab facility in [place] until October 06, 2021, and then finally released home. Pt had home health PT for a few weeks, but they stopped coming after pt developed pressure ulcers. Pt is now healed, and feeling improved enough to begin outpatient therapy. Pt is dramatically deconditioned, limited to w/c mobility, and only uses a FWW and Mod Ax1 to stand for 1-2 minutes at a time. Pt complains of ongoing neuropathy and foot drop, both of which began during his hospital stay. is primary caregiver, but they do have an additional caregiver come for four hours a day. They have purchased a recumbent elliptical for exercise, and pt has improved from using it on level 0 for 5 minutes to level 8 for an hour or more. Pt notes that he has been trying to get a prescription for AFOs to help with his drop foot, as he is unable to take a step due to 0/5 ankle weakness. Able to slowly mobilize himself in his manual wheelchair, but unable to propell himself with his LEs. Treatment Goals Patient/Caregiver Goals Pt wants to be able to get up and take a few steps. Personal Factors Other Personal Factors That May Effect Obesity, limited R shoulder Therapy/Recovery mobility, severe ankle weakness/drop foot, Hx PE, lymphedema, neuropathy PT-OP-C Subjective Start: 12/14/21 17:57 Freq: Status: Active Protocol: Document 01/10/22 14:30 DCW (Rec: 01/10/22 15:14 DCW [id number]) OP-PT Subjective Patient Comments Patient Comments Pt feeling pretty good overall today. PT-OP-G Mobility & Gait Start: 12/14/21 17:57 Freq: Status: Active Protocol: Document 12/14/21 16:00 DCW (Rec: 12/15/21 09:08 DCW [id number]) OP Mobility Evaluation Bed Mobility Rolling Per pt's , Indep, occasional Min A Transfers Sit to Stand Pt able to sit->stand from w/c CGA using UE assist on // bars. Pt requires Mod Ax2 at home with and caregiver holding FWW stable so he can pull himself up. Wheelchair Management Type of Wheelchair Manual Assessment Details Pt able to use UE to propel w/ c at a very slow speed, limited by overall arm weakness and decreased shoulder ROM. Barely able to propel with LEs, very weak HS pull with limited traction on floor due to ankle weakness and neuropathy. OP Gait Assessment Comments Gait Comments Unwilling and unable to attempt to ambulate at this time, even in parallel bars. Severe foot drop with neuropathy makes pt unable to take any steps forward due to fear of falling and tripping hazard. PT-OP-K Range of Motion Start: 12/14/21 17:57 Freq: Status: Active Protocol: Document 12/14/21 16:00 DCW (Rec: 12/15/21 09:08 DCW [id number]) Shoulder Goniometric Range of Motion Shoulder Right Active Shoulder ROM WFL No Testing Position Sitting Flexion 50 Abduction 50 Internal Rotation Behind Back (text) Unable to reach back past lateral hip Left Active Shoulder ROM WFL No Testing Position Sitting Flexion 90 Abduction 110 Internal Rotation Behind Back (text) L PSIS PT-OP-M Strength Start: 12/14/21 17:57 Freq: Status: Active Protocol: Document 12/14/21 16:00 DCW (Rec: 12/14/21 18:01 DCW [id number]) Hip Strength Hip Manual Muscle Testing Right Flexion (L2) 2 Poor Abduction 3+ Fair+ Adduction 3- Fair- Left Flexion (L2) 2 Poor Abduction 3+ Fair+ Adduction 3- Fair- Knee Strength Knee Manual Muscle Testing Right Flexion (S2) 2+ Poor+ Extension (L3) 4+ Good+ Left Flexion (S2) 3 Fair Extension (L3) 4+ Good+ Ankle/Foot Strength Ankle and Foot Manual Muscle Testing Right Dorsiflexion (L4) 0 Zero Plantarflexion (S1) 2+ Poor+ Inversion 0 Zero Eversion (S1) 0 Zero Left Dorsiflexion (L4) 0 Zero Plantarflexion (S1) 1 Trace Inversion 0 Zero Eversion (S1) 0 Zero PT-OP-Q Treatments Start: 12/14/21 17:57 Freq: Status: Active Protocol: Document 01/10/22 14:30 DCW (Rec: 01/10/22 15:14 DCW [id number]) Therapeutic Exercises Sitting Exercises Rows Sitting Exercise Name Seated Rows Side bilateral Resistance Lv 3 Chest Press Sitting Exercise Name UE Chest Press /c PVC Resistance 5# UE PNF Sitting Exercise Name PNF B UE Lift Resistance 4.4# ball Reps/Minutes x8 Therapeutic Activity Therapeutic Activity Sit<->stand Name StS x8 Comments CGA Gait Training Gait Activity Stance Description Double leg stance /s UE support Device Used // bars Comments Able to stand 2-3 seconds with Min Ax1 for stability. Pre-gait Description Pre-gait weight shift Device Used // bars Level of Assistance Min Ax1 Distance/Duration 3' x2 Comments Weight-shift with standing marching, 4# Assisted gait Description Forward then Backwards Device Used // bars Distance/Duration 8' each direction x3 Comments VCs for lifting foot up first instead of forward, PT Aide assist with W/C follow for safety PT-OP-T Assessment and Plan Start: 12/14/21 17:57 Freq: Status: Active Protocol: Document 01/10/22 14:30 DCW (Rec: 01/10/22 15:14 DCW [id number]) Physical Therapy Assessment Impairments Impairments Activity Tolerance,Balance, Edema,Functional Activities, Functional Mobility,Gait,ROM, Sensation,Strength,Tone, Transfers Goals Three Impairment Pt unable to propel himself well in w/c due to severely limited R UE ROM Jail Goal (LTG) Pt to improve right shoulder ROM to 100? flexion and abduction and increase IR to reach back to at least his left SI area in order to better propel his wheelchair independently. LTG Duration 03/14/22 Two Impairment Pt unable to step inside // bars due to severe ankle weakness and neuropath [employer] T[employer] Goal (LTG) Pt to ambulate 50' using least restrictive AD CGA while wearing appropriate AFOs to limit impact of foot drop to allow him to be more functionally mobile at home, including getting to the bathroom. LTG Duration 03/14/22 One Impairment Pt does not have an appropriate home exercise program Short Term Goal (STG) Pt to be independent and compliant with an appropriate HEP STG Duration 01/28/22 Assessment Summary Assessment Pt continues to progress well, improved sit<->stand with reduced reliance on PT assist. Able to show good foot clearance while marching with added ankle weights. Using less UE support on // bars during gait. Physical Therapy Plan Frequency and Duration Frequency of Treatment 2x/Week Plan of Care Start Date 12/14/21 Plan of Care End Date 03/14/22 Therapeutic Interventions Therapeutic Interventions Aquatic Therapy,Balance Training,Coordination Training ,Gait Training,Home Exercise Program,Lymphedema Management, Manual Therapy,Neuromuscular Re-education,Orthotic/ Prosthetic Management,Patient/ Caregiver Education,Self-Care/ Home Management,Soft Tissue Mobilization,Therapeutic Activities,Therapeutic Exercises,Wheelchair Management Modalities Cold Pack/Ice Massage,Electric Stimulation,Hot Packs, Ultrasound Next Visit Focus/Plan Next Note Type Treatment Note Next Visit Plan Activity tolerance, sit<-> stand, LE strengthening, gait in // bars, UE ROM
--- NOTE | 2022-01-13 15:14 | PT.OTN ---
Current Diagnoses Muscle weakness (generalized) (01/13/22) Unspecified abnormalities of gait and mobility (01/13/22) Other symptoms and signs involving the musculoskeletal system (01/13/22) Other fatigue (01/13/22) Other reduced mobility (01/13/22) Physical Therapy Treatment Note PT-OP-A Visit Information Start: 12/14/21 17:57 Freq: Status: Active Protocol: Document 01/13/22 14:30 DCW (Rec: 01/13/22 15:14 DCW [id number]) Out-Patient Physical Therapy Visit Information Visit Information Visit Type Treatment Note Visit Start Time 14:30 Visit Stop Time 15:15 Total Visit Minutes 45 Visit Number 10 Number of CENTERPUNCHER Visits 0 Evaluation Information Evaluation Date 12/14/21 PT-OP-B Current Condition Start: 12/14/21 17:57 Freq: Status: Active Protocol: Document 12/14/21 16:00 DCW (Rec: 12/14/21 18:10 DCW [id number]) Current Condition History of Current Condition Onset Date February, Current Complaints Physical debility, deconditioning, limited mobility, weakness History of Current Condition Pt is a 71 year old male presenting with a very complicated medical history. Pt was vacationing in [place] in February,, when he was hospitalized with a bacterial respiratory infection. He was there for two weeks, and then airlifted to [facility] in [place], where he remained for 90 days, including a long stay on a respirator. He was released from [facility] on May 17, 2021 and sent to a rehab facility in [place] until October 06, 2021, and then finally released home. Pt had home health PT for a few weeks, but they stopped coming after pt developed pressure ulcers. Pt is now healed, and feeling improved enough to begin outpatient therapy. Pt is dramatically deconditioned, limited to w/c mobility, and only uses a FWW and Mod Ax1 to stand for 1-2 minutes at a time. Pt complains of ongoing neuropathy and foot drop, both of which began during his hospital stay. is primary caregiver, but they do have an additional caregiver come for four hours a day. They have purchased a recumbent elliptical for exercise, and pt has improved from using it on level 0 for 5 minutes to level 8 for an hour or more. Pt notes that he has been trying to get a prescription for AFOs to help with his drop foot, as he is unable to take a step due to 0/5 ankle weakness. Able to slowly mobilize himself in his manual wheelchair, but unable to propell himself with his LEs. Treatment Goals Patient/Caregiver Goals Pt wants to be able to get up and take a few steps. Personal Factors Other Personal Factors That May Effect Obesity, limited R shoulder Therapy/Recovery mobility, severe ankle weakness/drop foot, Hx PE, lymphedema, neuropathy PT-OP-C Subjective Start: 12/14/21 17:57 Freq: Status: Active Protocol: Document 01/13/22 14:30 DCW (Rec: 01/13/22 15:14 DCW [id number]) OP-PT Subjective Patient Comments Patient Comments Pt reports he has very very sore toes, notes his toes have been curled in and he has a toenail that has been digging into his foot. PT-OP-G Mobility & Gait Start: 12/14/21 17:57 Freq: Status: Active Protocol: Document 12/14/21 16:00 DCW (Rec: 12/15/21 09:08 DCW [id number]) OP Mobility Evaluation Bed Mobility Rolling Per pt's , Indep, occasional Min A Transfers Sit to Stand Pt able to sit->stand from w/c CGA using UE assist on // bars. Pt requires Mod Ax2 at home with and caregiver holding FWW stable so he can pull himself up. Wheelchair Management Type of Wheelchair Manual Assessment Details Pt able to use UE to propel w/ c at a very slow speed, limited by overall arm weakness and decreased shoulder ROM. Barely able to propel with LEs, very weak HS pull with limited traction on floor due to ankle weakness and neuropathy. OP Gait Assessment Comments Gait Comments Unwilling and unable to attempt to ambulate at this time, even in parallel bars. Severe foot drop with neuropathy makes pt unable to take any steps forward due to fear of falling and tripping hazard. PT-OP-K Range of Motion Start: 12/14/21 17:57 Freq: Status: Active Protocol: Document 12/14/21 16:00 DCW (Rec: 12/15/21 09:08 DCW [id number]) Shoulder Goniometric Range of Motion Shoulder Right Active Shoulder ROM WFL No Testing Position Sitting Flexion 50 Abduction 50 Internal Rotation Behind Back (text) Unable to reach back past lateral hip Left Active Shoulder ROM WFL No Testing Position Sitting Flexion 90 Abduction 110 Internal Rotation Behind Back (text) L PSIS PT-OP-M Strength Start: 12/14/21 17:57 Freq: Status: Active Protocol: Document 12/14/21 16:00 DCW (Rec: 12/14/21 18:01 DCW [id number]) Hip Strength Hip Manual Muscle Testing Right Flexion (L2) 2 Poor Abduction 3+ Fair+ Adduction 3- Fair- Left Flexion (L2) 2 Poor Abduction 3+ Fair+ Adduction 3- Fair- Knee Strength Knee Manual Muscle Testing Right Flexion (S2) 2+ Poor+ Extension (L3) 4+ Good+ Left Flexion (S2) 3 Fair Extension (L3) 4+ Good+ Ankle/Foot Strength Ankle and Foot Manual Muscle Testing Right Dorsiflexion (L4) 0 Zero Plantarflexion (S1) 2+ Poor+ Inversion 0 Zero Eversion (S1) 0 Zero Left Dorsiflexion (L4) 0 Zero Plantarflexion (S1) 1 Trace Inversion 0 Zero Eversion (S1) 0 Zero PT-OP-Q Treatments Start: 12/14/21 17:57 Freq: Status: Active Protocol: Document 01/13/22 14:30 DCW (Rec: 01/13/22 15:14 DCW [id number]) Therapeutic Exercises Sitting Exercises Rows Sitting Exercise Name Seated Rows Side bilateral Resistance Lv 3 Chest Press Sitting Exercise Name UE Chest Press /c PVC Resistance 5# UE PNF Sitting Exercise Name PNF B UE Lift Resistance 4.4# ball Reps/Minutes x8 Therapeutic Activity Therapeutic Activity Sit<->stand Name StS x8 Comments Min Ax1 More fatigued today Gait Training Gait Activity Stance Description Double leg stance /s UE support Device Used // bars Comments Able to stand 2-4 seconds with Min Ax1 for stability. Pre-gait Description Pre-gait weight shift Device Used // bars Level of Assistance Min Ax1 Distance/Duration 5' Comments Weight-shift with standing marching, 5# Assisted gait Description Forward then Backwards Device Used // bars Distance/Duration 8' each direction x4 Comments VCs for lifting foot up first instead of forward, two laps without resting x2, did not require w/c follow PT-OP-T Assessment and Plan Start: 12/14/21 17:57 Freq: Status: Active Protocol: Document 01/13/22 14:30 DCW (Rec: 01/13/22 15:14 DCW [id number]) Physical Therapy Assessment Impairments Impairments Activity Tolerance,Balance, Edema,Functional Activities, Functional Mobility,Gait,ROM, Sensation,Strength,Tone, Transfers Goals Three Impairment Pt unable to propel himself well in w/c due to severely limited R UE ROM Chcf Goal (LTG) Pt to improve right shoulder ROM to 100? flexion and abduction and increase IR to reach back to at least his left SI area in order to better propel his wheelchair independently. LTG Duration 03/14/22 Two Impairment Pt unable to step inside // bars due to severe ankle weakness and neuropath Staying Machine Operator Goal (LTG) Pt to ambulate 50' using least restrictive AD CGA while wearing appropriate AFOs to limit impact of foot drop to allow him to be more functionally mobile at home, including getting to the bathroom. LTG Duration 03/14/22 One Impairment Pt does not have an appropriate home exercise program Short Term Goal (STG) Pt to be independent and compliant with an appropriate HEP STG Duration 01/28/22 Assessment Summary Assessment Pt progressing very well, fewer rest breaks during ambulation today, feeling confident and controlled enough that he was comfortable with walking in // bars without a w/c follow. Pt did have some notable increased foot pain due to a toenail issue, which resulted in requiring a little bit more assistance with sit<->stand than what he has needed recently. Physical Therapy Plan Frequency and Duration Frequency of Treatment 2x/Week Plan of Care Start Date 12/14/21 Plan of Care End Date 03/14/22 Therapeutic Interventions Therapeutic Interventions Aquatic Therapy,Balance Training,Coordination Training ,Gait Training,Home Exercise Program,Lymphedema Management, Manual Therapy,Neuromuscular Re-education,Orthotic/ Prosthetic Management,Patient/ Caregiver Education,Self-Care/ Home Management,Soft Tissue Mobilization,Therapeutic Activities,Therapeutic Exercises,Wheelchair Management Modalities Cold Pack/Ice Massage,Electric Stimulation,Hot Packs, Ultrasound Next Visit Focus/Plan Next Note Type Treatment Note Next Visit Plan Activity tolerance, sit<-> stand, LE strengthening, gait in // bars, UE ROM
--- NOTE | 2022-01-17 18:23 | PT.OTN ---
Current Diagnoses Muscle weakness (generalized) (01/17/22) Unspecified abnormalities of gait and mobility (01/17/22) Other symptoms and signs involving the musculoskeletal system (01/17/22) Other fatigue (01/17/22) Other reduced mobility (01/17/22) Physical Therapy Treatment Note PT-OP-A Visit Information Start: 12/14/21 17:57 Freq: Status: Active Protocol: Document 01/17/22 15:21 NBM (Rec: 01/17/22 18:20 NBM [id number]) Out-Patient Physical Therapy Visit Information Visit Information Visit Type Treatment Note Visit Note spouse Priscilla present throughout treatment session. Visit Start Time 15:20 Visit Stop Time 16:05 Total Visit Minutes 45 Visit Number 11 Number of CERTIFIED INCOME TAX PREPARER Visits 1 PT-OP-B Current Condition Start: 12/14/21 17:57 Freq: Status: Active Protocol: Document 12/14/21 16:00 DCW (Rec: 12/14/21 18:10 DCW [id number]) Current Condition History of Current Condition Onset Date February, Current Complaints Physical debility, deconditioning, limited mobility, weakness History of Current Condition Pt is a 71 year old male presenting with a very complicated medical history. Pt was vacationing in [place] in February,, when he was hospitalized with a bacterial respiratory infection. He was there for two weeks, and then airlifted to [facility] in [place], where he remained for 90 days, including a long stay on a respirator. He was released from [facility] on May 17, 2021 and sent to a rehab facility in [place] until October 06, 2021, and then finally released home. Pt had home health PT for a few weeks, but they stopped coming after pt developed pressure ulcers. Pt is now healed, and feeling improved enough to begin outpatient therapy. Pt is dramatically deconditioned, limited to w/c mobility, and only uses a FWW and Mod Ax1 to stand for 1-2 minutes at a time. Pt complains of ongoing neuropathy and foot drop, both of which began during his hospital stay. is primary caregiver, but they do have an additional caregiver come for four hours a day. They have purchased a recumbent elliptical for exercise, and pt has improved from using it on level 0 for 5 minutes to level 8 for an hour or more. Pt notes that he has been trying to get a prescription for AFOs to help with his drop foot, as he is unable to take a step due to 0/5 ankle weakness. Able to slowly mobilize himself in his manual wheelchair, but unable to propell himself with his LEs. Treatment Goals Patient/Caregiver Goals Pt wants to be able to get up and take a few steps. Personal Factors Other Personal Factors That May Effect Obesity, limited R shoulder Therapy/Recovery mobility, severe ankle weakness/drop foot, Hx PE, lymphedema, neuropathy PT-OP-C Subjective Start: 12/14/21 17:57 Freq: Status: Active Protocol: Document 01/17/22 15:21 NBM (Rec: 01/17/22 18:20 NBM [id number]) OP-PT Subjective Patient Comments Patient Comments Pt reports he did his upper body exercises later in the day than usual and feels sore all over. He's doing more cooking but the stove is tall for the wheel chair so his arms are tired. PT-OP-G Mobility & Gait Start: 12/14/21 17:57 Freq: Status: Active Protocol: Document 12/14/21 16:00 DCW (Rec: 12/15/21 09:08 DCW [id number]) OP Mobility Evaluation Bed Mobility Rolling Per pt's , Indep, occasional Min A Transfers Sit to Stand Pt able to sit->stand from w/c CGA using UE assist on // bars. Pt requires Mod Ax2 at home with and caregiver holding FWW stable so he can pull himself up. Wheelchair Management Type of Wheelchair Manual Assessment Details Pt able to use UE to propel w/ c at a very slow speed, limited by overall arm weakness and decreased shoulder ROM. Barely able to propel with LEs, very weak HS pull with limited traction on floor due to ankle weakness and neuropathy. OP Gait Assessment Comments Gait Comments Unwilling and unable to attempt to ambulate at this time, even in parallel bars. Severe foot drop with neuropathy makes pt unable to take any steps forward due to fear of falling and tripping hazard. PT-OP-K Range of Motion Start: 12/14/21 17:57 Freq: Status: Active Protocol: Document 12/14/21 16:00 DCW (Rec: 12/15/21 09:08 DCW [id number]) Shoulder Goniometric Range of Motion Shoulder Right Active Shoulder ROM WFL No Testing Position Sitting Flexion 50 Abduction 50 Internal Rotation Behind Back (text) Unable to reach back past lateral hip Left Active Shoulder ROM WFL No Testing Position Sitting Flexion 90 Abduction 110 Internal Rotation Behind Back (text) L PSIS PT-OP-M Strength Start: 12/14/21 17:57 Freq: Status: Active Protocol: Document 12/14/21 16:00 DCW (Rec: 12/14/21 18:01 DCW [id number]) Hip Strength Hip Manual Muscle Testing Right Flexion (L2) 2 Poor Abduction 3+ Fair+ Adduction 3- Fair- Left Flexion (L2) 2 Poor Abduction 3+ Fair+ Adduction 3- Fair- Knee Strength Knee Manual Muscle Testing Right Flexion (S2) 2+ Poor+ Extension (L3) 4+ Good+ Left Flexion (S2) 3 Fair Extension (L3) 4+ Good+ Ankle/Foot Strength Ankle and Foot Manual Muscle Testing Right Dorsiflexion (L4) 0 Zero Plantarflexion (S1) 2+ Poor+ Inversion 0 Zero Eversion (S1) 0 Zero Left Dorsiflexion (L4) 0 Zero Plantarflexion (S1) 1 Trace Inversion 0 Zero Eversion (S1) 0 Zero PT-OP-Q Treatments Start: 12/14/21 17:57 Freq: Status: Active Protocol: Document 01/17/22 15:21 [facility] (Rec: 01/17/22 18:20 [facility] [id number]) Therapeutic Exercises Sitting Exercises Scapular Squeezes Sitting Exercise Name added to HEP Reps/Minutes x10 Comments R UT overactive; tactile and verbal cues initially - improves w/ repetition Rows Sitting Exercise Name Seated Rows Side bilateral Resistance Lv 3 Comments cues for scapular setting, R UT overactivation Chest Press Sitting Exercise Name UE Chest Press /c PVC Resistance Lv 3 Tb only >5#>4# Comments R UT overactive; vc for scap resetting Therapeutic Activity Therapeutic Activity Sit<->stand Name StS x2 Comments CGA Gait Training Gait Activity Stance Description Double leg stance /s UE support Device Used // bars Comments Able to stand 2-5 seconds with Min Ax1 for stability. Cues for glute activation, upright posture. Assisted gait Description Forward then Backwards Device Used // bars Distance/Duration 8' each direction x4 Comments VC for upright posture, lift foot completely for backwards; no rest breaks, did not require w/c follow Self-Care/Home Management Treatment Education Patient Education Home Exercise Program Other Education Extra time spent educating on scapular setting to improve RUE functional mobility. Added to HEP: Glute sets, Quad sets, Heel Digs, Scap squeeze - HO given. PT-OP-T Assessment and Plan Start: 12/14/21 17:57 Freq: Status: Active Protocol: Document 01/17/22 15:21 [facility] (Rec: 01/17/22 18:20 [facility] [id number]) Physical Therapy Assessment Impairments Impairments Activity Tolerance,Balance, Edema,Functional Activities, Functional Mobility,Gait,ROM, Sensation,Strength,Tone, Transfers Goals Three Impairment Pt unable to propel himself well in w/c due to severely limited R UE ROM Water Resource Specialist Goal (LTG) Pt to improve right shoulder ROM to 100? flexion and abduction and increase IR to reach back to at least his left SI area in order to better propel his wheelchair independently. LTG Duration 03/14/22 Two Impairment Pt unable to step inside // bars due to severe ankle weakness and neuropath Water Resource Specialist Goal (LTG) Pt to ambulate 50' using least restrictive AD CGA while wearing appropriate AFOs to limit impact of foot drop to allow him to be more functionally mobile at home, including getting to the bathroom. LTG Duration 03/14/22 One Impairment Pt does not have an appropriate home exercise program Short Term Goal (STG) Pt to be independent and compliant with an appropriate HEP STG Duration 01/28/22 Assessment Summary Assessment Anderson is able to walk in parallel bars forwards and backwards 4x 8 ft without rest breaks or w/c follow today - pt does require cues for upright posture and lifting R foot completely w/ walking backwards. Pt is able to heat and frost insulator helper parallel bars up to 5 seconds today. Pt presents w/ observable R Upper trapezius overactivation (possibly related to increased time cooking at stove in low w/c) - pt requires max cues for scapular squeezing and R UT overactivation w/ RUE mobility but improves w/ repetition. Chest press resistance modified from 5# to 4# today due to extreme R Upper trap overactivation w/ 5#. Added to HEP: Glute sets, Quad sets, Heel Digs, Scap squeeze - HO given. Physical Therapy Plan Frequency and Duration Frequency of Treatment 2x/Week Plan of Care Start Date 12/14/21 Plan of Care End Date 03/14/22 Therapeutic Interventions Therapeutic Interventions Aquatic Therapy,Balance Training,Coordination Training ,Gait Training,Home Exercise Program,Lymphedema Management, Manual Therapy,Neuromuscular Re-education,Orthotic/ Prosthetic Management,Patient/ Caregiver Education,Self-Care/ Home Management,Soft Tissue Mobilization,Therapeutic Activities,Therapeutic Exercises,Wheelchair Management Modalities Cold Pack/Ice Massage,Electric Stimulation,Hot Packs, Ultrasound Next Visit Focus/Plan Next Note Type Treatment Note Next Visit Plan Activity tolerance, sit<-> stand, LE strengthening, gait in // bars, UE ROM
--- NOTE | 2022-01-20 15:18 | PT.OTN ---
Current Diagnoses Muscle weakness (generalized) (01/20/22) Unspecified abnormalities of gait and mobility (01/20/22) Other symptoms and signs involving the musculoskeletal system (01/20/22) Other fatigue (01/20/22) Other reduced mobility (01/20/22) Physical Therapy Treatment Note PT-OP-A Visit Information Start: 12/14/21 17:57 Freq: Status: Active Protocol: Document 01/20/22 14:26 SAK (Rec: 01/20/22 15:18 SAK [id number]) Out-Patient Physical Therapy Visit Information Visit Information Visit Type Treatment Note Visit Note spouse Priscilla present throughout treatment session. Visit Start Time 14:30 Visit Stop Time 15:15 Total Visit Minutes 45 Visit Number 12 Number of COMPUTER SCIENCE PROFESSOR Visits 0 PT-OP-B Current Condition Start: 12/14/21 17:57 Freq: Status: Active Protocol: Document 12/14/21 16:00 DCW (Rec: 12/14/21 18:10 DCW [id number]) Current Condition History of Current Condition Onset Date February, Current Complaints Physical debility, deconditioning, limited mobility, weakness History of Current Condition Pt is a 71 year old male presenting with a very complicated medical history. Pt was vacationing in [place] in February,, when he was hospitalized with a bacterial respiratory infection. He was there for two weeks, and then airlifted to [facility] in [place], where he remained for 90 days, including a long stay on a respirator. He was released from [facility] on May 17, 2021 and sent to a rehab facility in [place] until October 06, 2021, and then finally released home. Pt had home health PT for a few weeks, but they stopped coming after pt developed pressure ulcers. Pt is now healed, and feeling improved enough to begin outpatient therapy. Pt is dramatically deconditioned, limited to w/c mobility, and only uses a FWW and Mod Ax1 to stand for 1-2 minutes at a time. Pt complains of ongoing neuropathy and foot drop, both of which began during his hospital stay. is primary caregiver, but they do have an additional caregiver come for four hours a day. They have purchased a recumbent elliptical for exercise, and pt has improved from using it on level 0 for 5 minutes to level 8 for an hour or more. Pt notes that he has been trying to get a prescription for AFOs to help with his drop foot, as he is unable to take a step due to 0/5 ankle weakness. Able to slowly mobilize himself in his manual wheelchair, but unable to propell himself with his LEs. Treatment Goals Patient/Caregiver Goals Pt wants to be able to get up and take a few steps. Personal Factors Other Personal Factors That May Effect Obesity, limited R shoulder Therapy/Recovery mobility, severe ankle weakness/drop foot, Hx PE, lymphedema, neuropathy PT-OP-C Subjective Start: 12/14/21 17:57 Freq: Status: Active Protocol: Document 01/20/22 14:26 SAK (Rec: 01/20/22 15:18 SAK [id number]) OP-PT Subjective Patient Comments Patient Comments Nothing new to report. Feels PT helpful. PT-OP-G Mobility & Gait Start: 12/14/21 17:57 Freq: Status: Active Protocol: Document 12/14/21 16:00 DCW (Rec: 12/15/21 09:08 DCW [id number]) OP Mobility Evaluation Bed Mobility Rolling Per pt's , Indep, occasional Min A Transfers Sit to Stand Pt able to sit->stand from w/c CGA using UE assist on // bars. Pt requires Mod Ax2 at home with and caregiver holding FWW stable so he can pull himself up. Wheelchair Management Type of Wheelchair Manual Assessment Details Pt able to use UE to propel w/ c at a very slow speed, limited by overall arm weakness and decreased shoulder ROM. Barely able to propel with LEs, very weak HS pull with limited traction on floor due to ankle weakness and neuropathy. OP Gait Assessment Comments Gait Comments Unwilling and unable to attempt to ambulate at this time, even in parallel bars. Severe foot drop with neuropathy makes pt unable to take any steps forward due to fear of falling and tripping hazard. PT-OP-K Range of Motion Start: 12/14/21 17:57 Freq: Status: Active Protocol: Document 12/14/21 16:00 DCW (Rec: 12/15/21 09:08 DCW [id number]) Shoulder Goniometric Range of Motion Shoulder Right Active Shoulder ROM WFL No Testing Position Sitting Flexion 50 Abduction 50 Internal Rotation Behind Back (text) Unable to reach back past lateral hip Left Active Shoulder ROM WFL No Testing Position Sitting Flexion 90 Abduction 110 Internal Rotation Behind Back (text) L PSIS PT-OP-M Strength Start: 12/14/21 17:57 Freq: Status: Active Protocol: Document 12/14/21 16:00 DCW (Rec: 12/14/21 18:01 DCW [id number]) Hip Strength Hip Manual Muscle Testing Right Flexion (L2) 2 Poor Abduction 3+ Fair+ Adduction 3- Fair- Left Flexion (L2) 2 Poor Abduction 3+ Fair+ Adduction 3- Fair- Knee Strength Knee Manual Muscle Testing Right Flexion (S2) 2+ Poor+ Extension (L3) 4+ Good+ Left Flexion (S2) 3 Fair Extension (L3) 4+ Good+ Ankle/Foot Strength Ankle and Foot Manual Muscle Testing Right Dorsiflexion (L4) 0 Zero Plantarflexion (S1) 2+ Poor+ Inversion 0 Zero Eversion (S1) 0 Zero Left Dorsiflexion (L4) 0 Zero Plantarflexion (S1) 1 Trace Inversion 0 Zero Eversion (S1) 0 Zero PT-OP-Q Treatments Start: 12/14/21 17:57 Freq: Status: Active Protocol: Document 01/20/22 14:26 SAK (Rec: 01/20/22 15:18 SAK [id number]) Therapeutic Exercises Sitting Exercises pulleys Sitting Exercise Name flexion, scaption Scapular Squeezes Sitting Exercise Name added to HEP Reps/Minutes x10 Comments R UT overactive; tactile and verbal cues initially - improves w/ repetition Rows Sitting Exercise Name Seated Rows Side bilateral Resistance Lv 3 Comments cues for scapular setting, R UT overactivation Chest Press Sitting Exercise Name UE Chest Press /c PVC Shoulder PROM Sitting Exercise Name Abduction, ER, Flexion /c PVC Side right Hamstring curls Sitting Exercise Name HS curls Side bilateral Resistance Lv 1 Therapeutic Activity Therapeutic Activity Sit<->stand Name StS x2 Comments CGA Gait Training Gait Activity Stance Description Double leg stance /s UE support Device Used // bars with FWW Comments Able to stand 2-5 seconds with Min Ax1 for stability. Cues for glute activation, upright posture. Pre-gait Description Pre-gait weight shift Device Used // bars ( in bars holding bariatric walker) Level of Assistance CGA Distance/Duration 5' Comments Weight-shift with standing marching, 5# Assisted gait Description Forward then Backwards Device Used // bars Distance/Duration 8' each direction x5 Comments VC for upright posture, lift foot completely for backwards; no rest breaks, did not require w/c follow PT-OP-T Assessment and Plan Start: 12/14/21 17:57 Freq: Status: Active Protocol: Document 01/20/22 14:26 [facility] (Rec: 01/20/22 15:18 [facility] [id number]) Physical Therapy Assessment Impairments Impairments Activity Tolerance,Balance, Edema,Functional Activities, Functional Mobility,Gait,ROM, Sensation,Strength,Tone, Transfers Goals Three Impairment Pt unable to propel himself well in w/c due to severely limited R UE ROM Precision Crop Manager Goal (LTG) Pt to improve right shoulder ROM to 100? flexion and abduction and increase IR to reach back to at least his left SI area in order to better propel his wheelchair independently. LTG Duration 03/14/22 Two Impairment Pt unable to step inside // bars due to severe ankle weakness and neuropath Precision Crop Manager Goal (LTG) Pt to ambulate 50' using least restrictive AD CGA while wearing appropriate AFOs to limit impact of foot drop to allow him to be more functionally mobile at home, including getting to the bathroom. LTG Duration 03/14/22 One Impairment Pt does not have an appropriate home exercise program Short Term Goal (STG) Pt to be independent and compliant with an appropriate HEP STG Duration 01/28/22 Assessment Summary Assessment Able to walk in parallel bars 1 more time. Also introducted patient to FWW (bariatric) inside of parallel bars; standing only, too fatigued and fearful of trying step with walker. Physical Therapy Plan Frequency and Duration Frequency of Treatment 2x/Week Plan of Care Start Date 12/14/21 Plan of Care End Date 03/14/22 Therapeutic Interventions Therapeutic Interventions Aquatic Therapy,Balance Training,Coordination Training ,Gait Training,Home Exercise Program,Lymphedema Management, Manual Therapy,Neuromuscular Re-education,Orthotic/ Prosthetic Management,Patient/ Caregiver Education,Self-Care/ Home Management,Soft Tissue Mobilization,Therapeutic Activities,Therapeutic Exercises,Wheelchair Management Modalities Cold Pack/Ice Massage,Electric Stimulation,Hot Packs, Ultrasound Next Visit Focus/Plan Next Note Type Treatment Note Next Visit Plan Activity tolerance, sit<-> stand, LE strengthening, gait in // bars, UE ROM. Start with gait in parallel bars, use FWW as tolerated.
--- NOTE | 2022-01-26 17:38 | PT.OTN ---
Current Diagnoses Muscle weakness (generalized) (01/26/22) Unspecified abnormalities of gait and mobility (01/26/22) Other symptoms and signs involving the musculoskeletal system (01/26/22) Other fatigue (01/26/22) Other reduced mobility (01/26/22) Physical Therapy Treatment Note PT-OP-A Visit Information Start: 12/14/21 17:57 Freq: Status: Active Protocol: Document 01/26/22 16:48 DCW (Rec: 01/26/22 17:37 DCW [id number]) Out-Patient Physical Therapy Visit Information Visit Information Visit Type Treatment Note Visit Note spouse Priscilla present throughout treatment session. Visit Start Time 16:48 Visit Stop Time 17:30 Total Visit Minutes 42 Visit Number 13 Number of ONLINE PRODUCER Visits 0 Evaluation Information Evaluation Date 12/14/21 PT-OP-B Current Condition Start: 12/14/21 17:57 Freq: Status: Active Protocol: Document 12/14/21 16:00 DCW (Rec: 12/14/21 18:10 DCW [id number]) Current Condition History of Current Condition Onset Date February, Current Complaints Physical debility, deconditioning, limited mobility, weakness History of Current Condition Pt is a 71 year old male presenting with a very complicated medical history. Pt was vacationing in [place] in February,, when he was hospitalized with a bacterial respiratory infection. He was there for two weeks, and then airlifted to [facility] in [place], where he remained for 90 days, including a long stay on a respirator. He was released from [facility] on May 17, 2021 and sent to a rehab facility in [place] until October 06, 2021, and then finally released home. Pt had home health PT for a few weeks, but they stopped coming after pt developed pressure ulcers. Pt is now healed, and feeling improved enough to begin outpatient therapy. Pt is dramatically deconditioned, limited to w/c mobility, and only uses a FWW and Mod Ax1 to stand for 1-2 minutes at a time. Pt complains of ongoing neuropathy and foot drop, both of which began during his hospital stay. is primary caregiver, but they do have an additional caregiver come for four hours a day. They have purchased a recumbent elliptical for exercise, and pt has improved from using it on level 0 for 5 minutes to level 8 for an hour or more. Pt notes that he has been trying to get a prescription for AFOs to help with his drop foot, as he is unable to take a step due to 0/5 ankle weakness. Able to slowly mobilize himself in his manual wheelchair, but unable to propell himself with his LEs. Treatment Goals Patient/Caregiver Goals Pt wants to be able to get up and take a few steps. Personal Factors Other Personal Factors That May Effect Obesity, limited R shoulder Therapy/Recovery mobility, severe ankle weakness/drop foot, Hx PE, lymphedema, neuropathy PT-OP-C Subjective Start: 12/14/21 17:57 Freq: Status: Active Protocol: Document 01/26/22 16:48 DCW (Rec: 01/26/22 17:38 DCW [id number]) OP-PT Subjective Patient Comments Patient Comments Pt reports they had to [place] her[place] from another appointment , he's feeling a little tired. PT-OP-G Mobility & Gait Start: 12/14/21 17:57 Freq: Status: Active Protocol: Document 12/14/21 16:00 DCW (Rec: 12/15/21 09:08 DCW [id number]) OP Mobility Evaluation Bed Mobility Rolling Per pt's , Indep, occasional Min A Transfers Sit to Stand Pt able to sit->stand from w/c CGA using UE assist on // bars. Pt requires Mod Ax2 at home with and caregiver holding FWW stable so he can pull himself up. Wheelchair Management Type of Wheelchair Manual Assessment Details Pt able to use UE to propel w/ c at a very slow speed, limited by overall arm weakness and decreased shoulder ROM. Barely able to propel with LEs, very weak HS pull with limited traction on floor due to ankle weakness and neuropathy. OP Gait Assessment Comments Gait Comments Unwilling and unable to attempt to ambulate at this time, even in parallel bars. Severe foot drop with neuropathy makes pt unable to take any steps forward due to fear of falling and tripping hazard. PT-OP-K Range of Motion Start: 12/14/21 17:57 Freq: Status: Active Protocol: Document 12/14/21 16:00 DCW (Rec: 12/15/21 09:08 DCW [id number]) Shoulder Goniometric Range of Motion Shoulder Right Active Shoulder ROM WFL No Testing Position Sitting Flexion 50 Abduction 50 Internal Rotation Behind Back (text) Unable to reach back past lateral hip Left Active Shoulder ROM WFL No Testing Position Sitting Flexion 90 Abduction 110 Internal Rotation Behind Back (text) L PSIS PT-OP-M Strength Start: 12/14/21 17:57 Freq: Status: Active Protocol: Document 12/14/21 16:00 DCW (Rec: 12/14/21 18:01 DCW [id number]) Hip Strength Hip Manual Muscle Testing Right Flexion (L2) 2 Poor Abduction 3+ Fair+ Adduction 3- Fair- Left Flexion (L2) 2 Poor Abduction 3+ Fair+ Adduction 3- Fair- Knee Strength Knee Manual Muscle Testing Right Flexion (S2) 2+ Poor+ Extension (L3) 4+ Good+ Left Flexion (S2) 3 Fair Extension (L3) 4+ Good+ Ankle/Foot Strength Ankle and Foot Manual Muscle Testing Right Dorsiflexion (L4) 0 Zero Plantarflexion (S1) 2+ Poor+ Inversion 0 Zero Eversion (S1) 0 Zero Left Dorsiflexion (L4) 0 Zero Plantarflexion (S1) 1 Trace Inversion 0 Zero Eversion (S1) 0 Zero PT-OP-Q Treatments Start: 12/14/21 17:57 Freq: Status: Active Protocol: Document 01/26/22 16:48 DCW (Rec: 01/26/22 17:37 DCW [id number]) Therapeutic Exercises Sitting Exercises Chest Press Sitting Exercise Name UE Chest Press /c PVC Resistance 5# UE PNF Sitting Exercise Name PNF B UE Lift Resistance 4.4# ball Reps/Minutes x8 Therapeutic Activity Therapeutic Activity Sit<->stand Name StS x3 Comments CGA Gait Training Gait Activity FWW Description Fwd amb /c FWW Device Used Bariactric FWW Level of Assistance Min Ax1 Distance/Duration 5', 2' Assisted gait Description Forward then Backwards Device Used // bars Distance/Duration 8' each direction x2 Comments VC for upright posture, lift foot completely for backwards; no rest breaks, did not require w/c follow PT-OP-T Assessment and Plan Start: 12/14/21 17:57 Freq: Status: Active Protocol: Document 01/26/22 16:48 DCW (Rec: 01/26/22 17:37 DCW [id number]) Physical Therapy Assessment Impairments Impairments Activity Tolerance,Balance, Edema,Functional Activities, Functional Mobility,Gait,ROM, Sensation,Strength,Tone, Transfers Goals Three Impairment Pt unable to propel himself well in w/c due to severely limited R UE ROM Nursing Home Goal (LTG) Pt to improve right shoulder ROM to 100? flexion and abduction and increase IR to reach back to at least his left SI area in order to better propel his wheelchair independently. LTG Duration 03/14/22 Two Impairment Pt unable to step inside // bars due to severe ankle weakness and neuropath Therapeutic Assistant Goal (LTG) Pt to ambulate 50' using least restrictive AD CGA while wearing appropriate AFOs to limit impact of foot drop to allow him to be more functionally mobile at home, including getting to the bathroom. LTG Duration 03/14/22 One Impairment Pt does not have an appropriate home exercise program Short Term Goal (STG) Pt to be independent and compliant with an appropriate HEP STG Duration 01/28/22 Assessment Summary Assessment Pt fatigued very quickly with FWW, had increased difficulty advancing right foot, required extended rest break after each attempt. Physical Therapy Plan Frequency and Duration Frequency of Treatment 2x/Week Plan of Care Start Date 12/14/21 Plan of Care End Date 03/14/22 Therapeutic Interventions Therapeutic Interventions Aquatic Therapy,Balance Training,Coordination Training ,Gait Training,Home Exercise Program,Lymphedema Management, Manual Therapy,Neuromuscular Re-education,Orthotic/ Prosthetic Management,Patient/ Caregiver Education,Self-Care/ Home Management,Soft Tissue Mobilization,Therapeutic Activities,Therapeutic Exercises,Wheelchair Management Modalities Cold Pack/Ice Massage,Electric Stimulation,Hot Packs, Ultrasound Next Visit Focus/Plan Next Note Type Treatment Note Next Visit Plan Activity tolerance, sit<-> stand, LE strengthening, gait in // bars, UE ROM. Start with gait in parallel bars, use FWW as tolerated.
--- NOTE | 2022-01-28 16:02 | PT.OTN ---
Current Diagnoses Muscle weakness (generalized) (01/28/22) Unspecified abnormalities of gait and mobility (01/28/22) Other symptoms and signs involving the musculoskeletal system (01/28/22) Other fatigue (01/28/22) Other reduced mobility (01/28/22) Physical Therapy Treatment Note PT-OP-A Visit Information Start: 12/14/21 17:57 Freq: Status: Active Protocol: Document 01/28/22 15:15 DCW (Rec: 01/28/22 16:02 DCW [id number]) Out-Patient Physical Therapy Visit Information Visit Information Visit Type Treatment Note Visit Note spouse Priscilla present throughout treatment session. Visit Start Time 15:15 Visit Stop Time 16:00 Total Visit Minutes 45 Visit Number 14 Number of WATER TREATMENT PLANT ENGINEER Visits 0 Evaluation Information Evaluation Date 12/14/21 PT-OP-B Current Condition Start: 12/14/21 17:57 Freq: Status: Active Protocol: Document 12/14/21 16:00 DCW (Rec: 12/14/21 18:10 DCW [id number]) Current Condition History of Current Condition Onset Date February, Current Complaints Physical debility, deconditioning, limited mobility, weakness History of Current Condition Pt is a 71 year old male presenting with a very complicated medical history. Pt was vacationing in [place] in February,, when he was hospitalized with a bacterial respiratory infection. He was there for two weeks, and then airlifted to [facility] in [place], where he remained for 90 days, including a long stay on a respirator. He was released from [facility] on May 17, 2021 and sent to a rehab facility in [place] until October 06, 2021, and then finally released home. Pt had home health PT for a few weeks, but they stopped coming after pt developed pressure ulcers. Pt is now healed, and feeling improved enough to begin outpatient therapy. Pt is dramatically deconditioned, limited to w/c mobility, and only uses a FWW and Mod Ax1 to stand for 1-2 minutes at a time. Pt complains of ongoing neuropathy and foot drop, both of which began during his hospital stay. is primary caregiver, but they do have an additional caregiver come for four hours a day. They have purchased a recumbent elliptical for exercise, and pt has improved from using it on level 0 for 5 minutes to level 8 for an hour or more. Pt notes that he has been trying to get a prescription for AFOs to help with his drop foot, as he is unable to take a step due to 0/5 ankle weakness. Able to slowly mobilize himself in his manual wheelchair, but unable to propell himself with his LEs. Treatment Goals Patient/Caregiver Goals Pt wants to be able to get up and take a few steps. Personal Factors Other Personal Factors That May Effect Obesity, limited R shoulder Therapy/Recovery mobility, severe ankle weakness/drop foot, Hx PE, lymphedema, neuropathy PT-OP-C Subjective Start: 12/14/21 17:57 Freq: Status: Active Protocol: Document 01/28/22 15:15 DCW (Rec: 01/28/22 16:02 DCW [id number]) OP-PT Subjective Patient Comments Patient Comments Pt feeling pretty good today. PT-OP-G Mobility & Gait Start: 12/14/21 17:57 Freq: Status: Active Protocol: Document 12/14/21 16:00 DCW (Rec: 12/15/21 09:08 DCW [id number]) OP Mobility Evaluation Bed Mobility Rolling Per pt's , Indep, occasional Min A Transfers Sit to Stand Pt able to sit->stand from w/c CGA using UE assist on // bars. Pt requires Mod Ax2 at home with and caregiver holding FWW stable so he can pull himself up. Wheelchair Management Type of Wheelchair Manual Assessment Details Pt able to use UE to propel w/ c at a very slow speed, limited by overall arm weakness and decreased shoulder ROM. Barely able to propel with LEs, very weak HS pull with limited traction on floor due to ankle weakness and neuropathy. OP Gait Assessment Comments Gait Comments Unwilling and unable to attempt to ambulate at this time, even in parallel bars. Severe foot drop with neuropathy makes pt unable to take any steps forward due to fear of falling and tripping hazard. PT-OP-K Range of Motion Start: 12/14/21 17:57 Freq: Status: Active Protocol: Document 12/14/21 16:00 DCW (Rec: 12/15/21 09:08 DCW [id number]) Shoulder Goniometric Range of Motion Shoulder Right Active Shoulder ROM WFL No Testing Position Sitting Flexion 50 Abduction 50 Internal Rotation Behind Back (text) Unable to reach back past lateral hip Left Active Shoulder ROM WFL No Testing Position Sitting Flexion 90 Abduction 110 Internal Rotation Behind Back (text) L PSIS PT-OP-M Strength Start: 12/14/21 17:57 Freq: Status: Active Protocol: Document 12/14/21 16:00 DCW (Rec: 12/14/21 18:01 DCW [id number]) Hip Strength Hip Manual Muscle Testing Right Flexion (L2) 2 Poor Abduction 3+ Fair+ Adduction 3- Fair- Left Flexion (L2) 2 Poor Abduction 3+ Fair+ Adduction 3- Fair- Knee Strength Knee Manual Muscle Testing Right Flexion (S2) 2+ Poor+ Extension (L3) 4+ Good+ Left Flexion (S2) 3 Fair Extension (L3) 4+ Good+ Ankle/Foot Strength Ankle and Foot Manual Muscle Testing Right Dorsiflexion (L4) 0 Zero Plantarflexion (S1) 2+ Poor+ Inversion 0 Zero Eversion (S1) 0 Zero Left Dorsiflexion (L4) 0 Zero Plantarflexion (S1) 1 Trace Inversion 0 Zero Eversion (S1) 0 Zero PT-OP-Q Treatments Start: 12/14/21 17:57 Freq: Status: Active Protocol: Document 01/28/22 15:15 DCW (Rec: 01/28/22 16:02 DCW [id number]) Therapeutic Exercises Sitting Exercises Chest Press Sitting Exercise Name UE Chest Press /c PVC Resistance 5# UE PNF Sitting Exercise Name PNF B UE Lift Resistance 4.4# ball Reps/Minutes x8 Therapeutic Activity Therapeutic Activity Sit<->stand Name StS x3 Comments CGA Gait Training Gait Activity FWW Description Fwd amb /c FWW Device Used Bariactric FWW Level of Assistance CGA Distance/Duration 8' Comments Forward /c FWW, backward with // bars 2 full laps without rest x2 Stance Description Double leg stance /s UE support Device Used // bars with FWW Comments Able to stand 2-5.5 seconds with Min Ax1 for stability. Cues for glute activation, upright posture. PT-OP-T Assessment and Plan Start: 12/14/21 17:57 Freq: Status: Active Protocol: Document 01/28/22 15:15 DCW (Rec: 01/28/22 16:02 DCW [id number]) Physical Therapy Assessment Impairments Impairments Activity Tolerance,Balance, Edema,Functional Activities, Functional Mobility,Gait,ROM, Sensation,Strength,Tone, Transfers Goals Three Impairment Pt unable to propel himself well in w/c due to severely limited R UE ROM Supervisor Chassis Assembly Goal (LTG) Pt to improve right shoulder ROM to 100? flexion and abduction and increase IR to reach back to at least his left SI area in order to better propel his wheelchair independently. LTG Duration 03/14/22 Two Impairment Pt unable to step inside // bars due to severe ankle weakness and neuropath Supervisor Chassis Assembly Goal (LTG) Pt to ambulate 50' using least restrictive AD CGA while wearing appropriate AFOs to limit impact of foot drop to allow him to be more functionally mobile at home, including getting to the bathroom. LTG Duration 03/14/22 One Impairment Pt does not have an appropriate home exercise program Short Term Goal (STG) Pt to be independent and compliant with an appropriate HEP STG Duration 01/28/22 Assessment Summary Assessment Pt did much better using FWW today, able to ambulate forward while inside the bars without any assistance, did very well advancing right foot , no signs of instability. Physical Therapy Plan Frequency and Duration Frequency of Treatment 2x/Week Plan of Care Start Date 12/14/21 Plan of Care End Date 03/14/22 Therapeutic Interventions Therapeutic Interventions Aquatic Therapy,Balance Training,Coordination Training ,Gait Training,Home Exercise Program,Lymphedema Management, Manual Therapy,Neuromuscular Re-education,Orthotic/ Prosthetic Management,Patient/ Caregiver Education,Self-Care/ Home Management,Soft Tissue Mobilization,Therapeutic Activities,Therapeutic Exercises,Wheelchair Management Modalities Cold Pack/Ice Massage,Electric Stimulation,Hot Packs, Ultrasound Next Visit Focus/Plan Next Note Type Treatment Note Next Visit Plan Activity tolerance, sit<-> stand, LE strengthening, gait in // bars, UE ROM. Start with gait in parallel bars, use FWW as tolerated.
--- NOTE | 2022-02-01 16:45 | PT.OTN ---
Current Diagnoses Muscle weakness (generalized) (02/01/22) Unspecified abnormalities of gait and mobility (02/01/22) Other symptoms and signs involving the musculoskeletal system (02/01/22) Other fatigue (02/01/22) Other reduced mobility (02/01/22) Physical Therapy Treatment Note PT-OP-A Visit Information Start: 12/14/21 17:57 Freq: Status: Active Protocol: Document 02/01/22 16:01 DCW (Rec: 02/01/22 16:44 DCW [id number]) Out-Patient Physical Therapy Visit Information Visit Information Visit Type Treatment Note Visit Note spouse Priscilla present throughout treatment session. Visit Start Time 16:01 Visit Stop Time 16:45 Total Visit Minutes 44 Visit Number 15 Number of DEAN OF FACULTY Visits 0 Evaluation Information Evaluation Date 12/14/21 PT-OP-B Current Condition Start: 12/14/21 17:57 Freq: Status: Active Protocol: Document 12/14/21 16:00 DCW (Rec: 12/14/21 18:10 DCW [id number]) Current Condition History of Current Condition Onset Date February, Current Complaints Physical debility, deconditioning, limited mobility, weakness History of Current Condition Pt is a 71 year old male presenting with a very complicated medical history. Pt was vacationing in [place] in February,, when he was hospitalized with a bacterial respiratory infection. He was there for two weeks, and then airlifted to [facility] in [place], where he remained for 90 days, including a long stay on a respirator. He was released from [facility] on May 17, 2021 and sent to a rehab facility in [place] until October 06, 2021, and then finally released home. Pt had home health PT for a few weeks, but they stopped coming after pt developed pressure ulcers. Pt is now healed, and feeling improved enough to begin outpatient therapy. Pt is dramatically deconditioned, limited to w/c mobility, and only uses a FWW and Mod Ax1 to stand for 1-2 minutes at a time. Pt complains of ongoing neuropathy and foot drop, both of which began during his hospital stay. is primary caregiver, but they do have an additional caregiver come for four hours a day. They have purchased a recumbent elliptical for exercise, and pt has improved from using it on level 0 for 5 minutes to level 8 for an hour or more. Pt notes that he has been trying to get a prescription for AFOs to help with his drop foot, as he is unable to take a step due to 0/5 ankle weakness. Able to slowly mobilize himself in his manual wheelchair, but unable to propell himself with his LEs. Treatment Goals Patient/Caregiver Goals Pt wants to be able to get up and take a few steps. Personal Factors Other Personal Factors That May Effect Obesity, limited R shoulder Therapy/Recovery mobility, severe ankle weakness/drop foot, Hx PE, lymphedema, neuropathy PT-OP-C Subjective Start: 12/14/21 17:57 Freq: Status: Active Protocol: Document 02/01/22 16:01 DCW (Rec: 02/01/22 16:44 DCW [id number]) OP-PT Subjective Patient Comments Patient Comments Pt reports his goal is to attend his er registrar's meeting next month while using his or his 's vehicle to ride in, because they are getting rid of the transport van they had rented. PT-OP-G Mobility & Gait Start: 12/14/21 17:57 Freq: Status: Active Protocol: Document 12/14/21 16:00 DCW (Rec: 12/15/21 09:08 DCW [id number]) OP Mobility Evaluation Bed Mobility Rolling Per pt's , Indep, occasional Min A Transfers Sit to Stand Pt able to sit->stand from w/c CGA using UE assist on // bars. Pt requires Mod Ax2 at home with and caregiver holding FWW stable so he can pull himself up. Wheelchair Management Type of Wheelchair Manual Assessment Details Pt able to use UE to propel w/ c at a very slow speed, limited by overall arm weakness and decreased shoulder ROM. Barely able to propel with LEs, very weak HS pull with limited traction on floor due to ankle weakness and neuropathy. OP Gait Assessment Comments Gait Comments Unwilling and unable to attempt to ambulate at this time, even in parallel bars. Severe foot drop with neuropathy makes pt unable to take any steps forward due to fear of falling and tripping hazard. PT-OP-K Range of Motion Start: 12/14/21 17:57 Freq: Status: Active Protocol: Document 12/14/21 16:00 DCW (Rec: 12/15/21 09:08 DCW [id number]) Shoulder Goniometric Range of Motion Shoulder Right Active Shoulder ROM WFL No Testing Position Sitting Flexion 50 Abduction 50 Internal Rotation Behind Back (text) Unable to reach back past lateral hip Left Active Shoulder ROM WFL No Testing Position Sitting Flexion 90 Abduction 110 Internal Rotation Behind Back (text) L PSIS PT-OP-M Strength Start: 12/14/21 17:57 Freq: Status: Active Protocol: Document 12/14/21 16:00 DCW (Rec: 12/14/21 18:01 [facility] [id number]) Hip Strength Hip Manual Muscle Testing Right Flexion (L2) 2 Poor Abduction 3+ Fair+ Adduction 3- Fair- Left Flexion (L2) 2 Poor Abduction 3+ Fair+ Adduction 3- Fair- Knee Strength Knee Manual Muscle Testing Right Flexion (S2) 2+ Poor+ Extension (L3) 4+ Good+ Left Flexion (S2) 3 Fair Extension (L3) 4+ Good+ Ankle/Foot Strength Ankle and Foot Manual Muscle Testing Right Dorsiflexion (L4) 0 Zero Plantarflexion (S1) 2+ Poor+ Inversion 0 Zero Eversion (S1) 0 Zero Left Dorsiflexion (L4) 0 Zero Plantarflexion (S1) 1 Trace Inversion 0 Zero Eversion (S1) 0 Zero PT-OP-Q Treatments Start: 12/14/21 17:57 Freq: Status: Active Protocol: Document 02/01/22 16:01 DCW (Rec: 02/01/22 16:44 [facility] [id number]) Therapeutic Exercises Sitting Exercises Chest Press Sitting Exercise Name UE Chest Press /c PVC Resistance 5# UE PNF Sitting Exercise Name PNF B UE Lift Resistance 5.5# ball Reps/Minutes x8 Therapeutic Activity Therapeutic Activity Sit<->stand Name StS x4 Comments CGA Gait Training Gait Activity FWW Description Fwd amb /c FWW Device Used Bariactric FWW Level of Assistance CGA Distance/Duration 8' Comments Forward /c FWW, backward with // bars 4 full laps without rest Stance Description Double leg stance /s UE support Device Used // bars with FWW Comments Able to stand 2-13 seconds with Min Ax1 for stability. Cues for glute activation, upright posture. PT-OP-T Assessment and Plan Start: 12/14/21 17:57 Freq: Status: Active Protocol: Document 02/01/22 16:01 DCW (Rec: 02/01/22 16:44 [facility] [id number]) Physical Therapy Assessment Impairments Impairments Activity Tolerance,Balance, Edema,Functional Activities, Functional Mobility,Gait,ROM, Sensation,Strength,Tone, Transfers Goals Three Impairment Pt unable to propel himself well in w/c due to severely limited R UE ROM Skilled Nursing Goal (LTG) Pt to improve right shoulder ROM to 100? flexion and abduction and increase IR to reach back to at least his left SI area in order to better propel his wheelchair independently. LTG Duration 03/14/22 Two Impairment Pt unable to step inside // bars due to severe ankle weakness and neuropath Sap Developer Goal (LTG) Pt to ambulate 50' using least restrictive AD CGA while wearing appropriate AFOs to limit impact of foot drop to allow him to be more functionally mobile at home, including getting to the bathroom. LTG Duration 03/14/22 One Impairment Pt does not have an appropriate home exercise program Short Term Goal (STG) Pt to be independent and compliant with an appropriate HEP STG Duration 01/28/22 Assessment Summary Assessment Pt continues to show great improvement, improving activity tolerance and gait, will work toward gait outside of parallel bars and turns/ pivots to prepare for car transfers. Physical Therapy Plan Frequency and Duration Frequency of Treatment 2x/Week Plan of Care Start Date 12/14/21 Plan of Care End Date 03/14/22 Therapeutic Interventions Therapeutic Interventions Aquatic Therapy,Balance Training,Coordination Training ,Gait Training,Home Exercise Program,Lymphedema Management, Manual Therapy,Neuromuscular Re-education,Orthotic/ Prosthetic Management,Patient/ Caregiver Education,Self-Care/ Home Management,Soft Tissue Mobilization,Therapeutic Activities,Therapeutic Exercises,Wheelchair Management Modalities Cold Pack/Ice Massage,Electric Stimulation,Hot Packs, Ultrasound Next Visit Focus/Plan Next Note Type Treatment Note Next Visit Plan Start with FWW outside of // bars, activity tolerance, sit< ->stand, LE strengthening, gait in // bars, UE ROM.
--- NOTE | 2022-02-03 15:55 | PT.OTN ---
Current Diagnoses Muscle weakness (generalized) (02/03/22) Unspecified abnormalities of gait and mobility (02/03/22) Other symptoms and signs involving the musculoskeletal system (02/03/22) Other fatigue (02/03/22) Other reduced mobility (02/03/22) Physical Therapy Treatment Note PT-OP-A Visit Information Start: 12/14/21 17:57 Freq: Status: Active Protocol: Document 02/03/22 15:15 DCW (Rec: 02/03/22 15:54 DCW [id number]) Out-Patient Physical Therapy Visit Information Visit Information Visit Type Treatment Note Visit Note spouse Priscilla present throughout treatment session. Visit Start Time 15:15 Visit Stop Time 16:00 Total Visit Minutes 45 Visit Number 16 Number of MOVE COORDINATOR Visits 0 Evaluation Information Evaluation Date 12/14/21 PT-OP-B Current Condition Start: 12/14/21 17:57 Freq: Status: Active Protocol: Document 12/14/21 16:00 DCW (Rec: 12/14/21 18:10 DCW [id number]) Current Condition History of Current Condition Onset Date February, Current Complaints Physical debility, deconditioning, limited mobility, weakness History of Current Condition Pt is a 71 year old male presenting with a very complicated medical history. Pt was vacationing in [place] in February,, when he was hospitalized with a bacterial respiratory infection. He was there for two weeks, and then airlifted to [facility] in [place], where he remained for 90 days, including a long stay on a respirator. He was released from [facility] on May 17, 2021 and sent to a rehab facility in [place] until October 06, 2021, and then finally released home. Pt had home health PT for a few weeks, but they stopped coming after pt developed pressure ulcers. Pt is now healed, and feeling improved enough to begin outpatient therapy. Pt is dramatically deconditioned, limited to w/c mobility, and only uses a FWW and Mod Ax1 to stand for 1-2 minutes at a time. Pt complains of ongoing neuropathy and foot drop, both of which began during his hospital stay. is primary caregiver, but they do have an additional caregiver come for four hours a day. They have purchased a recumbent elliptical for exercise, and pt has improved from using it on level 0 for 5 minutes to level 8 for an hour or more. Pt notes that he has been trying to get a prescription for AFOs to help with his drop foot, as he is unable to take a step due to 0/5 ankle weakness. Able to slowly mobilize himself in his manual wheelchair, but unable to propell himself with his LEs. Treatment Goals Patient/Caregiver Goals Pt wants to be able to get up and take a few steps. Personal Factors Other Personal Factors That May Effect Obesity, limited R shoulder Therapy/Recovery mobility, severe ankle weakness/drop foot, Hx PE, lymphedema, neuropathy PT-OP-C Subjective Start: 12/14/21 17:57 Freq: Status: Active Protocol: Document 02/03/22 15:15 DCW (Rec: 02/03/22 15:54 DCW [id number]) OP-PT Subjective Patient Comments Patient Comments Pt notes he had a frustrating day. PT-OP-G Mobility & Gait Start: 12/14/21 17:57 Freq: Status: Active Protocol: Document 12/14/21 16:00 DCW (Rec: 12/15/21 09:08 DCW [id number]) OP Mobility Evaluation Bed Mobility Rolling Per pt's , Indep, occasional Min A Transfers Sit to Stand Pt able to sit->stand from w/c CGA using UE assist on // bars. Pt requires Mod Ax2 at home with and caregiver holding FWW stable so he can pull himself up. Wheelchair Management Type of Wheelchair Manual Assessment Details Pt able to use UE to propel w/ c at a very slow speed, limited by overall arm weakness and decreased shoulder ROM. Barely able to propel with LEs, very weak HS pull with limited traction on floor due to ankle weakness and neuropathy. OP Gait Assessment Comments Gait Comments Unwilling and unable to attempt to ambulate at this time, even in parallel bars. Severe foot drop with neuropathy makes pt unable to take any steps forward due to fear of falling and tripping hazard. PT-OP-K Range of Motion Start: 12/14/21 17:57 Freq: Status: Active Protocol: Document 12/14/21 16:00 DCW (Rec: 12/15/21 09:08 DCW [id number]) Shoulder Goniometric Range of Motion Shoulder Right Active Shoulder ROM WFL No Testing Position Sitting Flexion 50 Abduction 50 Internal Rotation Behind Back (text) Unable to reach back past lateral hip Left Active Shoulder ROM WFL No Testing Position Sitting Flexion 90 Abduction 110 Internal Rotation Behind Back (text) L PSIS PT-OP-M Strength Start: 12/14/21 17:57 Freq: Status: Active Protocol: Document 12/14/21 16:00 DCW (Rec: 12/14/21 18:01 DCW [id number]) Hip Strength Hip Manual Muscle Testing Right Flexion (L2) 2 Poor Abduction 3+ Fair+ Adduction 3- Fair- Left Flexion (L2) 2 Poor Abduction 3+ Fair+ Adduction 3- Fair- Knee Strength Knee Manual Muscle Testing Right Flexion (S2) 2+ Poor+ Extension (L3) 4+ Good+ Left Flexion (S2) 3 Fair Extension (L3) 4+ Good+ Ankle/Foot Strength Ankle and Foot Manual Muscle Testing Right Dorsiflexion (L4) 0 Zero Plantarflexion (S1) 2+ Poor+ Inversion 0 Zero Eversion (S1) 0 Zero Left Dorsiflexion (L4) 0 Zero Plantarflexion (S1) 1 Trace Inversion 0 Zero Eversion (S1) 0 Zero PT-OP-Q Treatments Start: 12/14/21 17:57 Freq: Status: Active Protocol: Document 02/03/22 15:15 DCW (Rec: 02/03/22 15:54 DCW [id number]) Therapeutic Exercises Sitting Exercises Chest Press Sitting Exercise Name UE Chest Press /c PVC Resistance 7# Therapeutic Activity Therapeutic Activity Sit<->stand Name StS x4 Comments From s/c to FWW, outside of // bars, Mod Ax1 Gait Training Gait Activity FWW Description Fwd amb /c FWW Device Used Bariactric FWW Level of Assistance CGA->Min Ax1 Distance/Duration 45' Comments FWW outside of // bars, w/c follow, included two 90 deg R turns PT-OP-T Assessment and Plan Start: 12/14/21 17:57 Freq: Status: Active Protocol: Document 02/03/22 15:15 DCW (Rec: 02/03/22 15:54 DCW [id number]) Physical Therapy Assessment Impairments Impairments Activity Tolerance,Balance, Edema,Functional Activities, Functional Mobility,Gait,ROM, Sensation,Strength,Tone, Transfers Goals Three Impairment Pt unable to propel himself well in w/c due to severely limited R UE ROM Assisted Goal (LTG) Pt to improve right shoulder ROM to 100? flexion and abduction and increase IR to reach back to at least his left SI area in order to better propel his wheelchair independently. LTG Duration 03/14/22 Two Impairment Pt unable to step inside // bars due to severe ankle weakness and neuropath Assisted Goal (LTG) Pt to ambulate 50' using least restrictive AD CGA while wearing appropriate AFOs to limit impact of foot drop to allow him to be more functionally mobile at home, including getting to the bathroom. LTG Duration 03/14/22 One Impairment Pt does not have an appropriate home exercise program Short Term Goal (STG) Pt to be independent and compliant with an appropriate HEP STG Duration 01/28/22 Assessment Summary Assessment Pt did very well with ambulation using FWW outside of // bars for the first time, able to maintain balance and advance feet bilaterally CGA. Did struggle more attempting to sit<->stand when outside of // bars, required Mod Ax1, repeated verbal cues for hand positioning. Physical Therapy Plan Frequency and Duration Frequency of Treatment 2x/Week Plan of Care Start Date 12/14/21 Plan of Care End Date 03/14/22 Therapeutic Interventions Therapeutic Interventions Aquatic Therapy,Balance Training,Coordination Training ,Gait Training,Home Exercise Program,Lymphedema Management, Manual Therapy,Neuromuscular Re-education,Orthotic/ Prosthetic Management,Patient/ Caregiver Education,Self-Care/ Home Management,Soft Tissue Mobilization,Therapeutic Activities,Therapeutic Exercises,Wheelchair Management Modalities Cold Pack/Ice Massage,Electric Stimulation,Hot Packs, Ultrasound Next Visit Focus/Plan Next Note Type Treatment Note Next Visit Plan Amb FWW outside of // bars, activity tolerance, sit<-> stand, LE strengthening, UE ROM.
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
--- NOTE | 2022-02-11 14:34 | PT.OTN ---
Current Diagnoses Muscle weakness (generalized) (02/11/22) Unspecified abnormalities of gait and mobility (02/11/22) Other symptoms and signs involving the musculoskeletal system (02/11/22) Other fatigue (02/11/22) Other reduced mobility (02/11/22) Physical Therapy Treatment Note PT-OP-A Visit Information Start: 12/14/21 17:57 Freq: Status: Active Protocol: Document 02/11/22 13:50 LRN (Rec: 02/11/22 14:34 LRN [id number]) Out-Patient Physical Therapy Visit Information Visit Information Visit Type Treatment Note Visit Start Time 13:51 Visit Stop Time 14:29 Total Visit Minutes 38 Visit Number 18 Evaluation Information Evaluation Date 12/14/21 PT-OP-B Current Condition Start: 12/14/21 17:57 Freq: Status: Active Protocol: Document 12/14/21 16:00 DCW (Rec: 12/14/21 18:10 DCW [id number]) Current Condition History of Current Condition Onset Date February, Current Complaints Physical debility, deconditioning, limited mobility, weakness History of Current Condition Pt is a 71 year old male presenting with a very complicated medical history. Pt was vacationing in [place] in February,, when he was hospitalized with a bacterial respiratory infection. He was there for two weeks, and then airlifted to [facility] in [place], where he remained for 90 days, including a long stay on a respirator. He was released from [facility] on May 17, 2021 and sent to a rehab facility in [place] until October 06, 2021, and then finally released home. Pt had home health PT for a few weeks, but they stopped coming after pt developed pressure ulcers. Pt is now healed, and feeling improved enough to begin outpatient therapy. Pt is dramatically deconditioned, limited to w/c mobility, and only uses a FWW and Mod Ax1 to stand for 1-2 minutes at a time. Pt complains of ongoing neuropathy and foot drop, both of which began during his hospital stay. is primary caregiver, but they do have an additional caregiver come for four hours a day. They have purchased a recumbent elliptical for exercise, and pt has improved from using it on level 0 for 5 minutes to level 8 for an hour or more. Pt notes that he has been trying to get a prescription for AFOs to help with his drop foot, as he is unable to take a step due to 0/5 ankle weakness. Able to slowly mobilize himself in his manual wheelchair, but unable to propell himself with his LEs. Treatment Goals Patient/Caregiver Goals Pt wants to be able to get up and take a few steps. Personal Factors Other Personal Factors That May Effect Obesity, limited R shoulder Therapy/Recovery mobility, severe ankle weakness/drop foot, Hx PE, lymphedema, neuropathy PT-OP-C Subjective Start: 12/14/21 17:57 Freq: Status: Active Protocol: Document 02/11/22 13:50 LRN (Rec: 02/11/22 14:34 LRN [id number]) OP-PT Subjective Patient Comments Patient Comments Spouse states his stepping in walker looked like he was walking with baby steps, so he wasn't doing as well as he used to be. States his R shoulder is feeling better. PT-OP-G Mobility & Gait Start: 12/14/21 17:57 Freq: Status: Active Protocol: Document 12/14/21 16:00 DCW (Rec: 12/15/21 09:08 DCW [id number]) OP Mobility Evaluation Bed Mobility Rolling Per pt's , Indep, occasional Min A Transfers Sit to Stand Pt able to sit->stand from w/c CGA using UE assist on // bars. Pt requires Mod Ax2 at home with and caregiver holding FWW stable so he can pull himself up. Wheelchair Management Type of Wheelchair Manual Assessment Details Pt able to use UE to propel w/ c at a very slow speed, limited by overall arm weakness and decreased shoulder ROM. Barely able to propel with LEs, very weak HS pull with limited traction on floor due to ankle weakness and neuropathy. OP Gait Assessment Comments Gait Comments Unwilling and unable to attempt to ambulate at this time, even in parallel bars. Severe foot drop with neuropathy makes pt unable to take any steps forward due to fear of falling and tripping hazard. PT-OP-K Range of Motion Start: 12/14/21 17:57 Freq: Status: Active Protocol: Document 12/14/21 16:00 DCW (Rec: 12/15/21 09:08 DCW [id number]) Shoulder Goniometric Range of Motion Shoulder Right Active Shoulder ROM WFL No Testing Position Sitting Flexion 50 Abduction 50 Internal Rotation Behind Back (text) Unable to reach back past lateral hip Left Active Shoulder ROM WFL No Testing Position Sitting Flexion 90 Abduction 110 Internal Rotation Behind Back (text) L PSIS PT-OP-M Strength Start: 12/14/21 17:57 Freq: Status: Active Protocol: Document 12/14/21 16:00 DCW (Rec: 12/14/21 18:01 DCW [id number]) Hip Strength Hip Manual Muscle Testing Right Flexion (L2) 2 Poor Abduction 3+ Fair+ Adduction 3- Fair- Left Flexion (L2) 2 Poor Abduction 3+ Fair+ Adduction 3- Fair- Knee Strength Knee Manual Muscle Testing Right Flexion (S2) 2+ Poor+ Extension (L3) 4+ Good+ Left Flexion (S2) 3 Fair Extension (L3) 4+ Good+ Ankle/Foot Strength Ankle and Foot Manual Muscle Testing Right Dorsiflexion (L4) 0 Zero Plantarflexion (S1) 2+ Poor+ Inversion 0 Zero Eversion (S1) 0 Zero Left Dorsiflexion (L4) 0 Zero Plantarflexion (S1) 1 Trace Inversion 0 Zero Eversion (S1) 0 Zero PT-OP-Q Treatments Start: 12/14/21 17:57 Freq: Status: Active Protocol: Document 02/11/22 13:50 LRN (Rec: 02/11/22 14:34 LRN [id number]) Therapeutic Activity Therapeutic Activity Sit<->stand Name StS x2 Comments Using // bars to help pull self up. Gait Training Gait Activity FWW Description Fwd amb /c FWW Device Used Bariactric FWW Level of Assistance CGA->Min A x1 Distance/Duration 30' Comments FWW outside of // bars, w/c follow, included two 90 deg R turns Stance Description Marching w/UE support Device Used // bars Comments Standing marching between sit< >stands. Cues for glute activation, upright posture. Assisted gait Description Forward then Backwards Device Used // bars Distance/Duration 8' each direction x3 Comments VC for upright posture, lift foot completely for backwards; no rest breaks, did not require w/c follow PT-OP-T Assessment and Plan Start: 12/14/21 17:57 Freq: Status: Active Protocol: Document 02/11/22 13:50 LRN (Rec: 02/11/22 14:34 LRN [id number]) Physical Therapy Assessment Goals Three Impairment Pt unable to propel himself well in w/c due to severely limited R UE ROM [facility] Living Goal (LTG) Pt to improve right shoulder ROM to 100? flexion and abduction and increase IR to reach back to at least his left SI area in order to better propel his wheelchair independently. LTG Duration 03/14/22 Two Impairment Pt unable to step inside // bars due to severe ankle weakness and neuropath Senior Living Goal (LTG) Pt to ambulate 50' using least restrictive AD CGA while wearing appropriate AFOs to limit impact of foot drop to allow him to be more functionally mobile at home, including getting to the bathroom. LTG Duration 03/14/22 One Impairment Pt does not have an appropriate home exercise program Short Term Goal (STG) Pt to be independent and compliant with an appropriate HEP STG Duration 01/28/22 Assessment Summary Assessment Pt needed much cuing to keep posture more upright. He tends to lean forward with gait, placing more weight through the arms. R shoulder discomfort is lessening; therefore may tolerate ROM ex' s next week. Physical Therapy Plan Frequency and Duration Frequency of Treatment 2x/Week Plan of Care Start Date 12/14/21 Plan of Care End Date 03/14/22 Next Visit Focus/Plan Next Note Type Treatment Note Next Visit Plan Amb FWW outside of // bars if R shoulder recovered from recent pull strain, activity tolerance, sit<->stand, LE strengthening, UE ROM.
--- NOTE | 2022-02-14 15:58 | PT.OTN ---
Current Diagnoses Muscle weakness (generalized) (02/14/22) Unspecified abnormalities of gait and mobility (02/14/22) Other symptoms and signs involving the musculoskeletal system (02/14/22) Other fatigue (02/14/22) Other reduced mobility (02/14/22) Physical Therapy Treatment Note PT-OP-A Visit Information Start: 12/14/21 17:57 Freq: Status: Active Protocol: Document 02/14/22 15:15 DCW (Rec: 02/14/22 15:58 DCW [id number]) Out-Patient Physical Therapy Visit Information Visit Information Visit Type Treatment Note Visit Note spouse Priscilla present throughout treatment session. Visit Start Time 15:15 Visit Stop Time 16:00 Total Visit Minutes 45 Visit Number 19 Evaluation Information Evaluation Date 12/14/21 PT-OP-B Current Condition Start: 12/14/21 17:57 Freq: Status: Active Protocol: Document 12/14/21 16:00 DCW (Rec: 12/14/21 18:10 DCW [id number]) Current Condition History of Current Condition Onset Date February, Current Complaints Physical debility, deconditioning, limited mobility, weakness History of Current Condition Pt is a 71 year old male presenting with a very complicated medical history. Pt was vacationing in [place] in February,, when he was hospitalized with a bacterial respiratory infection. He was there for two weeks, and then airlifted to [facility] in [place], where he remained for 90 days, including a long stay on a respirator. He was released from [facility] on May 17, 2021 and sent to a rehab facility in [place] until October 06, 2021, and then finally released home. Pt had home health PT for a few weeks, but they stopped coming after pt developed pressure ulcers. Pt is now healed, and feeling improved enough to begin outpatient therapy. Pt is dramatically deconditioned, limited to w/c mobility, and only uses a FWW and Mod Ax1 to stand for 1-2 minutes at a time. Pt complains of ongoing neuropathy and foot drop, both of which began during his hospital stay. is primary caregiver, but they do have an additional caregiver come for four hours a day. They have purchased a recumbent elliptical for exercise, and pt has improved from using it on level 0 for 5 minutes to level 8 for an hour or more. Pt notes that he has been trying to get a prescription for AFOs to help with his drop foot, as he is unable to take a step due to 0/5 ankle weakness. Able to slowly mobilize himself in his manual wheelchair, but unable to propell himself with his LEs. Treatment Goals Patient/Caregiver Goals Pt wants to be able to get up and take a few steps. Personal Factors Other Personal Factors That May Effect Obesity, limited R shoulder Therapy/Recovery mobility, severe ankle weakness/drop foot, Hx PE, lymphedema, neuropathy PT-OP-C Subjective Start: 12/14/21 17:57 Freq: Status: Active Protocol: Document 02/14/22 15:15 DCW (Rec: 02/14/22 15:58 DCW [id number]) OP-PT Subjective Patient Comments Patient Comments Pt reports he was sick Monday, carried over a little bit to Monday, and this morning they were having problems and on the phone with [employer], so he hasn't done much exercise since Monday. PT-OP-G Mobility & Gait Start: 12/14/21 17:57 Freq: Status: Active Protocol: Document 12/14/21 16:00 DCW (Rec: 12/15/21 09:08 DCW [id number]) OP Mobility Evaluation Bed Mobility Rolling Per pt's , Indep, occasional Min A Transfers Sit to Stand Pt able to sit->stand from w/c CGA using UE assist on // bars. Pt requires Mod Ax2 at home with and caregiver holding FWW stable so he can pull himself up. Wheelchair Management Type of Wheelchair Manual Assessment Details Pt able to use UE to propel w/ c at a very slow speed, limited by overall arm weakness and decreased shoulder ROM. Barely able to propel with LEs, very weak HS pull with limited traction on floor due to ankle weakness and neuropathy. OP Gait Assessment Comments Gait Comments Unwilling and unable to attempt to ambulate at this time, even in parallel bars. Severe foot drop with neuropathy makes pt unable to take any steps forward due to fear of falling and tripping hazard. PT-OP-K Range of Motion Start: 12/14/21 17:57 Freq: Status: Active Protocol: Document 12/14/21 16:00 DCW (Rec: 12/15/21 09:08 DCW [id number]) Shoulder Goniometric Range of Motion Shoulder Right Active Shoulder ROM WFL No Testing Position Sitting Flexion 50 Abduction 50 Internal Rotation Behind Back (text) Unable to reach back past lateral hip Left Active Shoulder ROM WFL No Testing Position Sitting Flexion 90 Abduction 110 Internal Rotation Behind Back (text) L PSIS PT-OP-M Strength Start: 12/14/21 17:57 Freq: Status: Active Protocol: Document 12/14/21 16:00 DCW (Rec: 12/14/21 18:01 DCW [id number]) Hip Strength Hip Manual Muscle Testing Right Flexion (L2) 2 Poor Abduction 3+ Fair+ Adduction 3- Fair- Left Flexion (L2) 2 Poor Abduction 3+ Fair+ Adduction 3- Fair- Knee Strength Knee Manual Muscle Testing Right Flexion (S2) 2+ Poor+ Extension (L3) 4+ Good+ Left Flexion (S2) 3 Fair Extension (L3) 4+ Good+ Ankle/Foot Strength Ankle and Foot Manual Muscle Testing Right Dorsiflexion (L4) 0 Zero Plantarflexion (S1) 2+ Poor+ Inversion 0 Zero Eversion (S1) 0 Zero Left Dorsiflexion (L4) 0 Zero Plantarflexion (S1) 1 Trace Inversion 0 Zero Eversion (S1) 0 Zero PT-OP-Q Treatments Start: 12/14/21 17:57 Freq: Status: Active Protocol: Document 02/14/22 15:15 DCW (Rec: 02/14/22 15:58 DCW [id number]) Therapeutic Exercises Sitting Exercises UE PNF Sitting Exercise Name PNF B UE Lift Resistance 5.5# ball Reps/Minutes x8 Therapeutic Activity Therapeutic Activity Sit<->stand Name StS x3, plus x3 during gait Comments at //, VCs for hand placement and sequencing Gait Training Gait Activity FWW Description Fwd amb /c FWW Device Used Bariactric FWW Level of Assistance CGA->Min A x1 Distance/Duration 14' x3 Comments FWW outside of // bars, w/c follow Stance Description Marching w/UE support Device Used // bars Comments Standing marching between sit< >stands. Cues for glute activation, upright posture. PT-OP-T Assessment and Plan Start: 12/14/21 17:57 Freq: Status: Active Protocol: Document 02/14/22 15:15 DCW (Rec: 02/14/22 15:58 DCW [id number]) Physical Therapy Assessment Impairments Impairments Activity Tolerance,Balance, Edema,Functional Activities, Functional Mobility,Gait,ROM, Sensation,Strength,Tone, Transfers Goals Three Impairment Pt unable to propel himself well in w/c due to severely limited R UE ROM Penitentiary Goal (LTG) Pt to improve right shoulder ROM to 100? flexion and abduction and increase IR to reach back to at least his left SI area in order to better propel his wheelchair independently. 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 LTG Duration 03/14/22 One Impairment Pt does not have an appropriate home exercise program Short Term Goal (STG) Pt to be independent and compliant with an appropriate HEP STG Duration 01/28/22 Assessment Summary Assessment Continues to require both manual and verbal assistance with sit<->stand, struggled more with activity tolerance and step length today. Physical Therapy Plan Frequency and Duration Frequency of Treatment 2x/Week Plan of Care Start Date 12/14/21 Plan of Care End Date 03/14/22 Therapeutic Interventions Therapeutic Interventions Aquatic Therapy,Balance Training,Coordination Training ,Gait Training,Home Exercise Program,Lymphedema Management, Manual Therapy,Neuromuscular Re-education,Orthotic/ Prosthetic Management,Patient/ Caregiver Education,Self-Care/ Home Management,Soft Tissue Mobilization,Therapeutic Activities,Therapeutic Exercises,Wheelchair Management Modalities Cold Pack/Ice Massage,Electric Stimulation,Hot Packs, Ultrasound Next Visit Focus/Plan Next Note Type Treatment Note Next Visit Plan Amb FWW outside of // bars if R shoulder recovered from recent pull strain, activity tolerance, sit<->stand, LE strengthening, UE ROM.
--- NOTE | 2022-02-23 15:16 | PT.OTN ---
Current Diagnoses Muscle weakness (generalized) (02/23/22) Unspecified abnormalities of gait and mobility (02/23/22) Other symptoms and signs involving the musculoskeletal system (02/23/22) Other fatigue (02/23/22) Other reduced mobility (02/23/22) Physical Therapy Treatment Note PT-OP-A Visit Information Start: 12/14/21 17:57 Freq: Status: Active Protocol: Document 02/23/22 14:30 DCW (Rec: 02/23/22 15:15 DCW [id number]) Out-Patient Physical Therapy Visit Information Visit Information Visit Type Progress Note Visit Start Time 14:30 Visit Stop Time 15:15 Total Visit Minutes 45 Visit Number 20 Number of GEOLOGIST PETROLEUM Visits 0 Evaluation Information Evaluation Date 12/14/21 PT-OP-B Current Condition Start: 12/14/21 17:57 Freq: Status: Active Protocol: Document 12/14/21 16:00 DCW (Rec: 12/14/21 18:10 DCW [id number]) Current Condition History of Current Condition Onset Date February, Current Complaints Physical debility, deconditioning, limited mobility, weakness History of Current Condition Pt is a 71 year old male presenting with a very complicated medical history. Pt was vacationing in [place] in February,, when he was hospitalized with a bacterial respiratory infection. He was there for two weeks, and then airlifted to [facility] in [place], where he remained for 90 days, including a long stay on a respirator. He was released from [facility] on May 17, 2021 and sent to a rehab facility in [place] until October 06, 2021, and then finally released home. Pt had home health PT for a few weeks, but they stopped coming after pt developed pressure ulcers. Pt is now healed, and feeling improved enough to begin outpatient therapy. Pt is dramatically deconditioned, limited to w/c mobility, and only uses a FWW and Mod Ax1 to stand for 1-2 minutes at a time. Pt complains of ongoing neuropathy and foot drop, both of which began during his hospital stay. is primary caregiver, but they do have an additional caregiver come for four hours a day. They have purchased a recumbent elliptical for exercise, and pt has improved from using it on level 0 for 5 minutes to level 8 for an hour or more. Pt notes that he has been trying to get a prescription for AFOs to help with his drop foot, as he is unable to take a step due to 0/5 ankle weakness. Able to slowly mobilize himself in his manual wheelchair, but unable to propell himself with his LEs. Treatment Goals Patient/Caregiver Goals Pt wants to be able to get up and take a few steps. Personal Factors Other Personal Factors That May Effect Obesity, limited R shoulder Therapy/Recovery mobility, severe ankle weakness/drop foot, Hx PE, lymphedema, neuropathy PT-OP-C Subjective Start: 12/14/21 17:57 Freq: Status: Active Protocol: Document 02/23/22 14:30 DCW (Rec: 02/23/22 15:15 DCW [id number]) OP-PT Subjective Patient Comments Patient Comments Pt returns following hospitalization secondary to pneumonia. Pt feeling better overall, still more fatigued than normal. PT-OP-G Mobility & Gait Start: 12/14/21 17:57 Freq: Status: Active Protocol: Document 12/14/21 16:00 DCW (Rec: 12/15/21 09:08 DCW [id number]) OP Mobility Evaluation Bed Mobility Rolling Per pt's , Indep, occasional Min A Transfers Sit to Stand Pt able to sit->stand from w/c CGA using UE assist on // bars. Pt requires Mod Ax2 at home with and caregiver holding FWW stable so he can pull himself up. Wheelchair Management Type of Wheelchair Manual Assessment Details Pt able to use UE to propel w/ c at a very slow speed, limited by overall arm weakness and decreased shoulder ROM. Barely able to propel with LEs, very weak HS pull with limited traction on floor due to ankle weakness and neuropathy. OP Gait Assessment Comments Gait Comments Unwilling and unable to attempt to ambulate at this time, even in parallel bars. Severe foot drop with neuropathy makes pt unable to take any steps forward due to fear of falling and tripping hazard. PT-OP-K Range of Motion Start: 12/14/21 17:57 Freq: Status: Active Protocol: Document 12/14/21 16:00 DCW (Rec: 12/15/21 09:08 DCW [id number]) Shoulder Goniometric Range of Motion Shoulder Right Active Shoulder ROM WFL No Testing Position Sitting Flexion 50 Abduction 50 Internal Rotation Behind Back (text) Unable to reach back past lateral hip Left Active Shoulder ROM WFL No Testing Position Sitting Flexion 90 Abduction 110 Internal Rotation Behind Back (text) L PSIS PT-OP-M Strength Start: 12/14/21 17:57 Freq: Status: Active Protocol: Document 12/14/21 16:00 DCW (Rec: 12/14/21 18:01 DCW [id number]) Hip Strength Hip Manual Muscle Testing Right Flexion (L2) 2 Poor Abduction 3+ Fair+ Adduction 3- Fair- Left Flexion (L2) 2 Poor Abduction 3+ Fair+ Adduction 3- Fair- Knee Strength Knee Manual Muscle Testing Right Flexion (S2) 2+ Poor+ Extension (L3) 4+ Good+ Left Flexion (S2) 3 Fair Extension (L3) 4+ Good+ Ankle/Foot Strength Ankle and Foot Manual Muscle Testing Right Dorsiflexion (L4) 0 Zero Plantarflexion (S1) 2+ Poor+ Inversion 0 Zero Eversion (S1) 0 Zero Left Dorsiflexion (L4) 0 Zero Plantarflexion (S1) 1 Trace Inversion 0 Zero Eversion (S1) 0 Zero PT-OP-Q Treatments Start: 12/14/21 17:57 Freq: Status: Active Protocol: Document 02/23/22 14:30 DCW (Rec: 02/23/22 15:15 DCW [id number]) Therapeutic Exercises Sitting Exercises Chest Press Sitting Exercise Name UE Chest Press /c PVC Resistance 7# UE PNF Sitting Exercise Name PNF B UE Lift Resistance 5.5# ball Reps/Minutes x8 Gait Training Gait Activity Stance Description Double leg stance /s UE support Device Used // bars with FWW Pre-gait Description Pre-gait weight shift Device Used // bars Level of Assistance Min Ax1 Distance/Duration 5' Comments Weight-shift with standing marching Assisted gait Description Forward then Backwards Device Used // bars Distance/Duration 8' each direction x3 without break, then x2 Comments VC for upright posture, lift foot completely for backwards; no rest breaks, did not require w/c follow PT-OP-T Assessment and Plan Start: 12/14/21 17:57 Freq: Status: Active Protocol: Document 02/23/22 14:30 DCW (Rec: 02/23/22 15:15 DCW [id number]) Physical Therapy Assessment Impairments Impairments Activity Tolerance,Balance, Edema,Functional Activities, Functional Mobility,Gait,ROM, Sensation,Strength,Tone, Transfers Goals Three Impairment Pt unable to propel himself well in w/c due to severely limited R UE ROM Retirement Goal (LTG) Pt to improve right shoulder ROM to 100? flexion and abduction and increase IR to reach back to at least his left SI area in order to better propel his wheelchair independently. LTG Duration 03/14/22 Two Impairment Pt unable to step inside // bars due to severe ankle weakness and neuropath Retirement Goal (LTG) Pt to ambulate 50' using least restrictive AD CGA while wearing appropriate AFOs to limit impact of foot drop to allow him to be more functionally mobile at home, including getting to the bathroom. LTG Duration 03/14/22 One Impairment Pt does not have an appropriate home exercise program Short Term Goal (STG) Pt to be independent and compliant with an appropriate HEP STG Duration 01/28/22 Assessment Summary Assessment Pt obviously more fatigued today following hospital stay, but actually did very well with overall activity level. Good gait inside // bars, not requiring as much VCs for advancing feet. O2 sat dropped down to 88% after ambulation, recovered to 98% quickly. Physical Therapy Plan Frequency and Duration Frequency of Treatment 2x/Week Plan of Care Start Date 12/14/21 Plan of Care End Date 03/14/22 Therapeutic Interventions Therapeutic Interventions Aquatic Therapy,Balance Training,Coordination Training ,Gait Training,Home Exercise Program,Lymphedema Management, Manual Therapy,Neuromuscular Re-education,Orthotic/ Prosthetic Management,Patient/ Caregiver Education,Self-Care/ Home Management,Soft Tissue Mobilization,Therapeutic Activities,Therapeutic Exercises,Wheelchair Management Modalities Cold Pack/Ice Massage,Electric Stimulation,Hot Packs, Ultrasound Next Visit Focus/Plan Next Note Type Treatment Note Next Visit Plan Amb FWW outside of // bars if R shoulder recovered from recent pull strain, activity tolerance, sit<->stand, LE strengthening, UE ROM.
--- NOTE | 2022-02-28 15:16 | PT.OTN ---
Current Diagnoses Muscle weakness (generalized) (02/28/22) Unspecified abnormalities of gait and mobility (02/28/22) Other symptoms and signs involving the musculoskeletal system (02/28/22) Other fatigue (02/28/22) Other reduced mobility (02/28/22) Physical Therapy Treatment Note PT-OP-A Visit Information Start: 12/14/21 17:57 Freq: Status: Active Protocol: Document 02/28/22 14:30 DCW (Rec: 02/28/22 15:16 DCW [id number]) Out-Patient Physical Therapy Visit Information Visit Information Visit Type Treatment Note Visit Start Time 14:30 Visit Stop Time 15:15 Total Visit Minutes 45 Visit Number 21 Number of BUSINESS LAW TEACHER Visits 0 Evaluation Information Evaluation Date 12/14/21 PT-OP-B Current Condition Start: 12/14/21 17:57 Freq: Status: Active Protocol: Document 12/14/21 16:00 DCW (Rec: 12/14/21 18:10 DCW [id number]) Current Condition History of Current Condition Onset Date February, Current Complaints Physical debility, deconditioning, limited mobility, weakness History of Current Condition Pt is a 71 year old male presenting with a very complicated medical history. Pt was vacationing in [place] in February,, when he was hospitalized with a bacterial respiratory infection. He was there for two weeks, and then airlifted to [facility] in [place], where he remained for 90 days, including a long stay on a respirator. He was released from [facility] on May 17, 2021 and sent to a rehab facility in [place] until October 06, 2021, and then finally released home. Pt had home health PT for a few weeks, but they stopped coming after pt developed pressure ulcers. Pt is now healed, and feeling improved enough to begin outpatient therapy. Pt is dramatically deconditioned, limited to w/c mobility, and only uses a FWW and Mod Ax1 to stand for 1-2 minutes at a time. Pt complains of ongoing neuropathy and foot drop, both of which began during his hospital stay. is primary caregiver, but they do have an additional caregiver come for four hours a day. They have purchased a recumbent elliptical for exercise, and pt has improved from using it on level 0 for 5 minutes to level 8 for an hour or more. Pt notes that he has been trying to get a prescription for AFOs to help with his drop foot, as he is unable to take a step due to 0/5 ankle weakness. Able to slowly mobilize himself in his manual wheelchair, but unable to propell himself with his LEs. Treatment Goals Patient/Caregiver Goals Pt wants to be able to get up and take a few steps. Personal Factors Other Personal Factors That May Effect Obesity, limited R shoulder Therapy/Recovery mobility, severe ankle weakness/drop foot, Hx PE, lymphedema, neuropathy PT-OP-C Subjective Start: 12/14/21 17:57 Freq: Status: Active Protocol: Document 02/28/22 14:30 DCW (Rec: 02/28/22 15:16 DCW [id number]) OP-PT Subjective Patient Comments Patient Comments Pt notes he has been sitting too long today, it's making his legs sore. PT-OP-G Mobility & Gait Start: 12/14/21 17:57 Freq: Status: Active Protocol: Document 12/14/21 16:00 DCW (Rec: 12/15/21 09:08 DCW [id number]) OP Mobility Evaluation Bed Mobility Rolling Per pt's , Indep, occasional Min A Transfers Sit to Stand Pt able to sit->stand from w/c CGA using UE assist on // bars. Pt requires Mod Ax2 at home with and caregiver holding FWW stable so he can pull himself up. Wheelchair Management Type of Wheelchair Manual Assessment Details Pt able to use UE to propel w/ c at a very slow speed, limited by overall arm weakness and decreased shoulder ROM. Barely able to propel with LEs, very weak HS pull with limited traction on floor due to ankle weakness and neuropathy. OP Gait Assessment Comments Gait Comments Unwilling and unable to attempt to ambulate at this time, even in parallel bars. Severe foot drop with neuropathy makes pt unable to take any steps forward due to fear of falling and tripping hazard. PT-OP-K Range of Motion Start: 12/14/21 17:57 Freq: Status: Active Protocol: Document 12/14/21 16:00 DCW (Rec: 12/15/21 09:08 DCW [id number]) Shoulder Goniometric Range of Motion Shoulder Right Active Shoulder ROM WFL No Testing Position Sitting Flexion 50 Abduction 50 Internal Rotation Behind Back (text) Unable to reach back past lateral hip Left Active Shoulder ROM WFL No Testing Position Sitting Flexion 90 Abduction 110 Internal Rotation Behind Back (text) L PSIS PT-OP-M Strength Start: 12/14/21 17:57 Freq: Status: Active Protocol: Document 12/14/21 16:00 DCW (Rec: 12/14/21 18:01 DCW [id number]) Hip Strength Hip Manual Muscle Testing Right Flexion (L2) 2 Poor Abduction 3+ Fair+ Adduction 3- Fair- Left Flexion (L2) 2 Poor Abduction 3+ Fair+ Adduction 3- Fair- Knee Strength Knee Manual Muscle Testing Right Flexion (S2) 2+ Poor+ Extension (L3) 4+ Good+ Left Flexion (S2) 3 Fair Extension (L3) 4+ Good+ Ankle/Foot Strength Ankle and Foot Manual Muscle Testing Right Dorsiflexion (L4) 0 Zero Plantarflexion (S1) 2+ Poor+ Inversion 0 Zero Eversion (S1) 0 Zero Left Dorsiflexion (L4) 0 Zero Plantarflexion (S1) 1 Trace Inversion 0 Zero Eversion (S1) 0 Zero PT-OP-Q Treatments Start: 12/14/21 17:57 Freq: Status: Active Protocol: Document 02/28/22 14:30 DCW (Rec: 02/28/22 15:16 DCW [id number]) Therapeutic Exercises Sitting Exercises Chest Press Sitting Exercise Name UE Chest Press /c PVC Resistance 10# UE PNF Sitting Exercise Name PNF B UE Lift Resistance 5.5# ball Reps/Minutes x8 Therapeutic Activity Therapeutic Activity Sit<->stand Name StS x3, plus x3 during gait Comments at //, VCs for hand placement and sequencing Gait Training Gait Activity FWW Description Fwd amb /c FWW Device Used Bariactric FWW Level of Assistance CGA->Min A x1 Distance/Duration 25' x3 Comments FWW outside of // bars, w/c follow, 180 degree turn x2 Stance Description Double leg stance /s UE support Device Used // bars with FWW PT-OP-T Assessment and Plan Start: 12/14/21 17:57 Freq: Status: Active Protocol: Document 02/28/22 14:30 DCW (Rec: 02/28/22 15:16 DCW [id number]) Physical Therapy Assessment Impairments Impairments Activity Tolerance,Balance, Edema,Functional Activities, Functional Mobility,Gait,ROM, Sensation,Strength,Tone, Transfers Goals Three Impairment Pt unable to propel himself well in w/c due to severely limited R UE ROM Housing Inspectors Goal (LTG) Pt to improve right shoulder ROM to 100? flexion and abduction and increase IR to reach back to at least his left SI area in order to better propel his wheelchair independently. LTG Duration 03/14/22 Two Impairment Pt unable to step inside // bars due to severe ankle weakness and neuropath Housing Inspectors Goal (LTG) Pt to ambulate 50' using least restrictive AD CGA while wearing appropriate AFOs to limit impact of foot drop to allow him to be more functionally mobile at home, including getting to the bathroom. LTG Duration 03/14/22 One Impairment Pt does not have an appropriate home exercise program Short Term Goal (STG) Pt to be independent and compliant with an appropriate HEP STG Duration 01/28/22 Assessment Summary Assessment Increased ambulation distance today, able to ambulate 25' using FWW x3. Additionally, worked on standing-pivot turns using FWW in order to prep for car transfers. Physical Therapy Plan Frequency and Duration Frequency of Treatment 2x/Week Plan of Care Start Date 12/14/21 Plan of Care End Date 03/14/22 Therapeutic Interventions Therapeutic Interventions Aquatic Therapy,Balance Training,Coordination Training ,Gait Training,Home Exercise Program,Lymphedema Management, Manual Therapy,Neuromuscular Re-education,Orthotic/ Prosthetic Management,Patient/ Caregiver Education,Self-Care/ Home Management,Soft Tissue Mobilization,Therapeutic Activities,Therapeutic Exercises,Wheelchair Management Modalities Cold Pack/Ice Massage,Electric Stimulation,Hot Packs, Ultrasound Next Visit Focus/Plan Next Note Type Treatment Note Next Visit Plan Work toward vehicle transfers, Amb FWW outside of // bars, activity tolerance, sit<-> stand, LE strengthening, UE ROM.
--- NOTE | 2022-03-03 14:59 | PT.OTN ---
Current Diagnoses Muscle weakness (generalized) (03/03/22) Unspecified abnormalities of gait and mobility (03/03/22) Other symptoms and signs involving the musculoskeletal system (03/03/22) Other fatigue (03/03/22) Other reduced mobility (03/03/22) Physical Therapy Treatment Note PT-OP-A Visit Information Start: 12/14/21 17:57 Freq: Status: Active Protocol: Document 03/03/22 14:30 DCW (Rec: 03/03/22 14:59 DCW [id number]) Out-Patient Physical Therapy Visit Information Visit Information Visit Type Treatment Note Visit Start Time 14:30 Visit Stop Time 14:55 Total Visit Minutes 25 Visit Number 22 Number of PATIENT EXPERIENCE COORDINATOR Visits 0 Evaluation Information Evaluation Date 12/14/21 PT-OP-B Current Condition Start: 12/14/21 17:57 Freq: Status: Active Protocol: Document 12/14/21 16:00 DCW (Rec: 12/14/21 18:10 DCW [id number]) Current Condition History of Current Condition Onset Date February, Current Complaints Physical debility, deconditioning, limited mobility, weakness History of Current Condition Pt is a 71 year old male presenting with a very complicated medical history. Pt was vacationing in [place] in February,, when he was hospitalized with a bacterial respiratory infection. He was there for two weeks, and then airlifted to [facility] in [place], where he remained for 90 days, including a long stay on a respirator. He was released from [facility] on May 17, 2021 and sent to a rehab facility in [place] until October 06, 2021, and then finally released home. Pt had home health PT for a few weeks, but they stopped coming after pt developed pressure ulcers. Pt is now healed, and feeling improved enough to begin outpatient therapy. Pt is dramatically deconditioned, limited to w/c mobility, and only uses a FWW and Mod Ax1 to stand for 1-2 minutes at a time. Pt complains of ongoing neuropathy and foot drop, both of which began during his hospital stay. is primary caregiver, but they do have an additional caregiver come for four hours a day. They have purchased a recumbent elliptical for exercise, and pt has improved from using it on level 0 for 5 minutes to level 8 for an hour or more. Pt notes that he has been trying to get a prescription for AFOs to help with his drop foot, as he is unable to take a step due to 0/5 ankle weakness. Able to slowly mobilize himself in his manual wheelchair, but unable to propell himself with his LEs. Treatment Goals Patient/Caregiver Goals Pt wants to be able to get up and take a few steps. Personal Factors Other Personal Factors That May Effect Obesity, limited R shoulder Therapy/Recovery mobility, severe ankle weakness/drop foot, Hx PE, lymphedema, neuropathy PT-OP-C Subjective Start: 12/14/21 17:57 Freq: Status: Active Protocol: Document 03/03/22 14:30 DCW (Rec: 03/03/22 14:59 DCW [id number]) OP-PT Subjective Patient Comments Patient Comments Pt's : I don't know how well he's going to do today, his oxygen has been all over the place. We talked to his doctor, and she said we should come anyway, give it a try PT-OP-G Mobility & Gait Start: 12/14/21 17:57 Freq: Status: Active Protocol: Document 12/14/21 16:00 DCW (Rec: 12/15/21 09:08 DCW [id number]) OP Mobility Evaluation Bed Mobility Rolling Per pt's , Indep, occasional Min A Transfers Sit to Stand Pt able to sit->stand from w/c CGA using UE assist on // bars. Pt requires Mod Ax2 at home with and caregiver holding FWW stable so he can pull himself up. Wheelchair Management Type of Wheelchair Manual Assessment Details Pt able to use UE to propel w/ c at a very slow speed, limited by overall arm weakness and decreased shoulder ROM. Barely able to propel with LEs, very weak HS pull with limited traction on floor due to ankle weakness and neuropathy. OP Gait Assessment Comments Gait Comments Unwilling and unable to attempt to ambulate at this time, even in parallel bars. Severe foot drop with neuropathy makes pt unable to take any steps forward due to fear of falling and tripping hazard. PT-OP-K Range of Motion Start: 12/14/21 17:57 Freq: Status: Active Protocol: Document 12/14/21 16:00 DCW (Rec: 12/15/21 09:08 DCW [id number]) Shoulder Goniometric Range of Motion Shoulder Right Active Shoulder ROM WFL No Testing Position Sitting Flexion 50 Abduction 50 Internal Rotation Behind Back (text) Unable to reach back past lateral hip Left Active Shoulder ROM WFL No Testing Position Sitting Flexion 90 Abduction 110 Internal Rotation Behind Back (text) L PSIS PT-OP-M Strength Start: 12/14/21 17:57 Freq: Status: Active Protocol: Document 12/14/21 16:00 DCW (Rec: 12/14/21 18:01 DCW [id number]) Hip Strength Hip Manual Muscle Testing Right Flexion (L2) 2 Poor Abduction 3+ Fair+ Adduction 3- Fair- Left Flexion (L2) 2 Poor Abduction 3+ Fair+ Adduction 3- Fair- Knee Strength Knee Manual Muscle Testing Right Flexion (S2) 2+ Poor+ Extension (L3) 4+ Good+ Left Flexion (S2) 3 Fair Extension (L3) 4+ Good+ Ankle/Foot Strength Ankle and Foot Manual Muscle Testing Right Dorsiflexion (L4) 0 Zero Plantarflexion (S1) 2+ Poor+ Inversion 0 Zero Eversion (S1) 0 Zero Left Dorsiflexion (L4) 0 Zero Plantarflexion (S1) 1 Trace Inversion 0 Zero Eversion (S1) 0 Zero PT-OP-Q Treatments Start: 12/14/21 17:57 Freq: Status: Active Protocol: Document 03/03/22 14:30 DCW (Rec: 03/03/22 14:59 [facility] [id number]) Therapeutic Exercises Sitting Exercises Chest Press Sitting Exercise Name UE Chest Press /c PVC Resistance 7# Reps/Minutes x4 Gait Training Gait Activity FWW Comments Standing 180? turn using FWW, w/c follow. PT-OP-T Assessment and Plan Start: 12/14/21 17:57 Freq: Status: Active Protocol: Document 03/03/22 14:30 DCW (Rec: 03/03/22 14:59 [facility] [id number]) Physical Therapy Assessment Impairments Impairments Activity Tolerance,Balance, Edema,Functional Activities, Functional Mobility,Gait,ROM, Sensation,Strength,Tone, Transfers Goals Three Impairment Pt unable to propel himself well in w/c due to severely limited R UE ROM Nursing Home Goal (LTG) Pt to improve right shoulder ROM to 100? flexion and abduction and increase IR to reach back to at least his left SI area in order to better propel his wheelchair independently. LTG Duration 03/14/22 Two Impairment Pt unable to step inside // bars due to severe ankle weakness and neuropath Interactive Media Specialist Goal (LTG) Pt to ambulate 50' using least restrictive AD CGA while wearing appropriate AFOs to limit impact of foot drop to allow him to be more functionally mobile at home, including getting to the bathroom. LTG Duration 03/14/22 One Impairment Pt does not have an appropriate home exercise program Short Term Goal (STG) Pt to be independent and compliant with an appropriate HEP STG Duration 01/28/22 Assessment Summary Assessment Pt performed one 180? turn today, O2 sat dropped from 94% ->85%, requires PLB and long rest to return to 94%. Attempted to just focus on UE strengthening, chest press x2 resulted in O2 sat dropping to 87%. Decided to stop therapy at this time. discussed importance of pt and tracking O2 levels, recommended going to ED with any changes. Physical Therapy Plan Frequency and Duration Frequency of Treatment 2x/Week Plan of Care Start Date 12/14/21 Plan of Care End Date 03/14/22 Therapeutic Interventions Therapeutic Interventions Aquatic Therapy,Balance Training,Coordination Training ,Gait Training,Home Exercise Program,Lymphedema Management, Manual Therapy,Neuromuscular Re-education,Orthotic/ Prosthetic Management,Patient/ Caregiver Education,Self-Care/ Home Management,Soft Tissue Mobilization,Therapeutic Activities,Therapeutic Exercises,Wheelchair Management Modalities Cold Pack/Ice Massage,Electric Stimulation,Hot Packs, Ultrasound Next Visit Focus/Plan Next Note Type Treatment Note Next Visit Plan Work toward vehicle transfers, Amb FWW outside of // bars, activity tolerance, sit<-> stand, LE strengthening, UE ROM.
--- NOTE | 2022-03-07 15:13 | PT.OTN ---
Current Diagnoses Muscle weakness (generalized) (03/07/22) Unspecified abnormalities of gait and mobility (03/07/22) Other symptoms and signs involving the musculoskeletal system (03/07/22) Other fatigue (03/07/22) Other reduced mobility (03/07/22) Physical Therapy Treatment Note PT-OP-A Visit Information Start: 12/14/21 17:57 Freq: Status: Active Protocol: Document 03/07/22 14:30 DCW (Rec: 03/07/22 15:13 DCW [id number]) Out-Patient Physical Therapy Visit Information Visit Information Visit Type Treatment Note Visit Start Time 14:30 Visit Stop Time 14:55 Total Visit Minutes 45 Visit Number 23 Number of MOBILE HE[employer] VEHICLE OPERATOR Visits 0 Evaluation Information Evaluation Date 12/14/21 PT-OP-B Current Condition Start: 12/14/21 17:57 Freq: Status: Active Protocol: Document 12/14/21 16:00 DCW (Rec: 12/14/21 18:10 DCW [id number]) Current Condition History of Current Condition Onset Date February, Current Complaints Physical debility, deconditioning, limited mobility, weakness History of Current Condition Pt is a 71 year old male presenting with a very complicated medical history. Pt was vacationing in [place] in February,, when he was hospitalized with a bacterial respiratory infection. He was there for two weeks, and then airlifted to [facility] in [place], where he remained for 90 days, including a long stay on a respirator. He was released from [facility] on May 17, 2021 and sent to a rehab facility in [place] until October 06, 2021, and then finally released home. Pt had home health PT for a few weeks, but they stopped coming after pt developed pressure ulcers. Pt is now healed, and feeling improved enough to begin outpatient therapy. Pt is dramatically deconditioned, limited to w/c mobility, and only uses a FWW and Mod Ax1 to stand for 1-2 minutes at a time. Pt complains of ongoing neuropathy and foot drop, both of which began during his hospital stay. is primary caregiver, but they do have an additional caregiver come for four hours a day. They have purchased a recumbent elliptical for exercise, and pt has improved from using it on level 0 for 5 minutes to level 8 for an hour or more. Pt notes that he has been trying to get a prescription for AFOs to help with his drop foot, as he is unable to take a step due to 0/5 ankle weakness. Able to slowly mobilize himself in his manual wheelchair, but unable to propell himself with his LEs. Treatment Goals Patient/Caregiver Goals Pt wants to be able to get up and take a few steps. Personal Factors Other Personal Factors That May Effect Obesity, limited R shoulder Therapy/Recovery mobility, severe ankle weakness/drop foot, Hx PE, lymphedema, neuropathy PT-OP-C Subjective Start: 12/14/21 17:57 Freq: Status: Active Protocol: Document 03/07/22 14:30 DCW (Rec: 03/07/22 15:13 DCW [id number]) OP-PT Subjective Patient Comments Patient Comments Pt doing better today, still not great, admits O2 sat has still been falling to low 90s with a longer recovery time with any activity. PT-OP-G Mobility & Gait Start: 12/14/21 17:57 Freq: Status: Active Protocol: Document 12/14/21 16:00 DCW (Rec: 12/15/21 09:08 DCW [id number]) OP Mobility Evaluation Bed Mobility Rolling Per pt's , Indep, occasional Min A Transfers Sit to Stand Pt able to sit->stand from w/c CGA using UE assist on // bars. Pt requires Mod Ax2 at home with and caregiver holding FWW stable so he can pull himself up. Wheelchair Management Type of Wheelchair Manual Assessment Details Pt able to use UE to propel w/ c at a very slow speed, limited by overall arm weakness and decreased shoulder ROM. Barely able to propel with LEs, very weak HS pull with limited traction on floor due to ankle weakness and neuropathy. OP Gait Assessment Comments Gait Comments Unwilling and unable to attempt to ambulate at this time, even in parallel bars. Severe foot drop with neuropathy makes pt unable to take any steps forward due to fear of falling and tripping hazard. PT-OP-K Range of Motion Start: 12/14/21 17:57 Freq: Status: Active Protocol: Document 12/14/21 16:00 DCW (Rec: 12/15/21 09:08 DCW [id number]) Shoulder Goniometric Range of Motion Shoulder Right Active Shoulder ROM WFL No Testing Position Sitting Flexion 50 Abduction 50 Internal Rotation Behind Back (text) Unable to reach back past lateral hip Left Active Shoulder ROM WFL No Testing Position Sitting Flexion 90 Abduction 110 Internal Rotation Behind Back (text) L PSIS PT-OP-M Strength Start: 12/14/21 17:57 Freq: Status: Active Protocol: Document 12/14/21 16:00 DCW (Rec: 12/14/21 18:01 DCW [id number]) Hip Strength Hip Manual Muscle Testing Right Flexion (L2) 2 Poor Abduction 3+ Fair+ Adduction 3- Fair- Left Flexion (L2) 2 Poor Abduction 3+ Fair+ Adduction 3- Fair- Knee Strength Knee Manual Muscle Testing Right Flexion (S2) 2+ Poor+ Extension (L3) 4+ Good+ Left Flexion (S2) 3 Fair Extension (L3) 4+ Good+ Ankle/Foot Strength Ankle and Foot Manual Muscle Testing Right Dorsiflexion (L4) 0 Zero Plantarflexion (S1) 2+ Poor+ Inversion 0 Zero Eversion (S1) 0 Zero Left Dorsiflexion (L4) 0 Zero Plantarflexion (S1) 1 Trace Inversion 0 Zero Eversion (S1) 0 Zero PT-OP-Q Treatments Start: 12/14/21 17:57 Freq: Status: Active Protocol: Document 03/07/22 14:30 DCW (Rec: 03/07/22 15:13 DCW [id number]) Therapeutic Exercises Sitting Exercises Chest Press Sitting Exercise Name UE Chest Press /c PVC Resistance 7# Reps/Minutes x10 UE PNF Sitting Exercise Name PNF B UE Lift Resistance 5.5# ball Reps/Minutes x8 Therapeutic Activity Therapeutic Activity Sit<->stand Name StS x2 Comments FWW held in place by /PT, VCs for hand placement and sequencing Gait Training Gait Activity FWW Description Fwd amb /c FWW Device Used Bariactric FWW Level of Assistance CGA->Min A x1 Distance/Duration 10' x1, 20' x1 Comments FWW outside of // bars, w/c follow, 180? turn x2 Stance Description Double leg stance /s UE support Device Used // bars with FWW PT-OP-T Assessment and Plan Start: 12/14/21 17:57 Freq: Status: Active Protocol: Document 03/07/22 14:30 DCW (Rec: 03/07/22 15:13 DCW [id number]) Physical Therapy Assessment Impairments Impairments Activity Tolerance,Balance, Edema,Functional Activities, Functional Mobility,Gait,ROM, Sensation,Strength,Tone, Transfers Goals Three Impairment Pt unable to propel himself well in w/c due to severely limited R UE ROM Skilled Nursing Goal (LTG) Pt to improve right shoulder ROM to 100? flexion and abduction and increase IR to reach back to at least his left SI area in order to better propel his wheelchair independently. LTG Duration 03/14/22 Two Impairment Pt unable to step inside // bars due to severe ankle weakness and neuropath Production Graphic Designer Goal (LTG) Pt to ambulate 50' using least restrictive AD CGA while wearing appropriate AFOs to limit impact of foot drop to allow him to be more functionally mobile at home, including getting to the bathroom. LTG Duration 03/14/22 One Impairment Pt does not have an appropriate home exercise program Short Term Goal (STG) Pt to be independent and compliant with an appropriate HEP STG Duration 01/28/22 Assessment Summary Assessment Despite continued complaints of fatigue and weakness, pt largely returned to normal function during today's session, with exception of ambulation distance, limited to 10' then 20', as well as demonstrating decreased spenser during turns. Physical Therapy Plan Frequency and Duration Frequency of Treatment 2x/Week Plan of Care Start Date 12/14/21 Plan of Care End Date 03/14/22 Therapeutic Interventions Therapeutic Interventions Aquatic Therapy,Balance Training,Coordination Training ,Gait Training,Home Exercise Program,Lymphedema Management, Manual Therapy,Neuromuscular Re-education,Orthotic/ Prosthetic Management,Patient/ Caregiver Education,Self-Care/ Home Management,Soft Tissue Mobilization,Therapeutic Activities,Therapeutic Exercises,Wheelchair Management Modalities Cold Pack/Ice Massage,Electric Stimulation,Hot Packs, Ultrasound Next Visit Focus/Plan Next Note Type Treatment Note Next Visit Plan Work toward vehicle transfers, Amb FWW outside of // bars, activity tolerance, sit<-> stand, LE strengthening, UE ROM.
--- NOTE | 2022-03-10 15:15 | PT.OTN ---
Current Diagnoses Muscle weakness (generalized) (03/10/22) Unspecified abnormalities of gait and mobility (03/10/22) Other symptoms and signs involving the musculoskeletal system (03/10/22) Other fatigue (03/10/22) Other reduced mobility (03/10/22) Physical Therapy Treatment Note PT-OP-A Visit Information Start: 12/14/21 17:57 Freq: Status: Active Protocol: Document 03/10/22 14:30 DCW (Rec: 03/10/22 15:15 DCW [id number]) Out-Patient Physical Therapy Visit Information Visit Information Visit Type Treatment Note Visit Start Time 14:30 Visit Stop Time 15:15 Total Visit Minutes 45 Visit Number 24 Number of TUGBOAT ENGINEER Visits 0 Evaluation Information Evaluation Date 12/14/21 PT-OP-B Current Condition Start: 12/14/21 17:57 Freq: Status: Active Protocol: Document 12/14/21 16:00 DCW (Rec: 12/14/21 18:10 DCW [id number]) Current Condition History of Current Condition Onset Date February, Current Complaints Physical debility, deconditioning, limited mobility, weakness History of Current Condition Pt is a 71 year old male presenting with a very complicated medical history. Pt was vacationing in [place] in February,, when he was hospitalized with a bacterial respiratory infection. He was there for two weeks, and then airlifted to [facility] in [place], where he remained for 90 days, including a long stay on a respirator. He was released from [facility] on May 17, 2021 and sent to a rehab facility in [place] until October 06, 2021, and then finally released home. Pt had home health PT for a few weeks, but they stopped coming after pt developed pressure ulcers. Pt is now healed, and feeling improved enough to begin outpatient therapy. Pt is dramatically deconditioned, limited to w/c mobility, and only uses a FWW and Mod Ax1 to stand for 1-2 minutes at a time. Pt complains of ongoing neuropathy and foot drop, both of which began during his hospital stay. is primary caregiver, but they do have an additional caregiver come for four hours a day. They have purchased a recumbent elliptical for exercise, and pt has improved from using it on level 0 for 5 minutes to level 8 for an hour or more. Pt notes that he has been trying to get a prescription for AFOs to help with his drop foot, as he is unable to take a step due to 0/5 ankle weakness. Able to slowly mobilize himself in his manual wheelchair, but unable to propell himself with his LEs. Treatment Goals Patient/Caregiver Goals Pt wants to be able to get up and take a few steps. Personal Factors Other Personal Factors That May Effect Obesity, limited R shoulder Therapy/Recovery mobility, severe ankle weakness/drop foot, Hx PE, lymphedema, neuropathy PT-OP-C Subjective Start: 12/14/21 17:57 Freq: Status: Active Protocol: Document 03/10/22 14:30 DCW (Rec: 03/10/22 15:15 DCW [id number]) OP-PT Subjective Patient Comments Patient Comments Pt still having some decreased O2 sat readings at home, averaging ~94%. PT-OP-G Mobility & Gait Start: 12/14/21 17:57 Freq: Status: Active Protocol: Document 12/14/21 16:00 DCW (Rec: 12/15/21 09:08 DCW [id number]) OP Mobility Evaluation Bed Mobility Rolling Per pt's , Indep, occasional Min A Transfers Sit to Stand Pt able to sit->stand from w/c CGA using UE assist on // bars. Pt requires Mod Ax2 at home with and caregiver holding FWW stable so he can pull himself up. Wheelchair Management Type of Wheelchair Manual Assessment Details Pt able to use UE to propel w/ c at a very slow speed, limited by overall arm weakness and decreased shoulder ROM. Barely able to propel with LEs, very weak HS pull with limited traction on floor due to ankle weakness and neuropathy. OP Gait Assessment Comments Gait Comments Unwilling and unable to attempt to ambulate at this time, even in parallel bars. Severe foot drop with neuropathy makes pt unable to take any steps forward due to fear of falling and tripping hazard. PT-OP-K Range of Motion Start: 12/14/21 17:57 Freq: Status: Active Protocol: Document 12/14/21 16:00 DCW (Rec: 12/15/21 09:08 DCW [id number]) Shoulder Goniometric Range of Motion Shoulder Right Active Shoulder ROM WFL No Testing Position Sitting Flexion 50 Abduction 50 Internal Rotation Behind Back (text) Unable to reach back past lateral hip Left Active Shoulder ROM WFL No Testing Position Sitting Flexion 90 Abduction 110 Internal Rotation Behind Back (text) L PSIS PT-OP-M Strength Start: 12/14/21 17:57 Freq: Status: Active Protocol: Document 12/14/21 16:00 DCW (Rec: 12/14/21 18:01 DCW [id number]) Hip Strength Hip Manual Muscle Testing Right Flexion (L2) 2 Poor Abduction 3+ Fair+ Adduction 3- Fair- Left Flexion (L2) 2 Poor Abduction 3+ Fair+ Adduction 3- Fair- Knee Strength Knee Manual Muscle Testing Right Flexion (S2) 2+ Poor+ Extension (L3) 4+ Good+ Left Flexion (S2) 3 Fair Extension (L3) 4+ Good+ Ankle/Foot Strength Ankle and Foot Manual Muscle Testing Right Dorsiflexion (L4) 0 Zero Plantarflexion (S1) 2+ Poor+ Inversion 0 Zero Eversion (S1) 0 Zero Left Dorsiflexion (L4) 0 Zero Plantarflexion (S1) 1 Trace Inversion 0 Zero Eversion (S1) 0 Zero PT-OP-Q Treatments Start: 12/14/21 17:57 Freq: Status: Active Protocol: Document 03/10/22 14:30 DCW (Rec: 03/10/22 15:15 DCW [id number]) Therapeutic Activity Therapeutic Activity Sit<->stand Name StS x4 Comments FWW held in place by /PT, VCs for hand placement and sequencing Gait Training Gait Activity FWW Description Fwd amb /c FWW Device Used Bariactric FWW Level of Assistance CGA->Min A x1 Comments 180? turn x1, backward ambulation with FWW, 8', then forward ambulation 40' x1 /c FWW PT-OP-T Assessment and Plan Start: 12/14/21 17:57 Freq: Status: Active Protocol: Document 03/10/22 14:30 DCW (Rec: 03/10/22 15:15 DCW [id number]) Physical Therapy Assessment Impairments Impairments Activity Tolerance,Balance, Edema,Functional Activities, Functional Mobility,Gait,ROM, Sensation,Strength,Tone, Transfers Goals Three Impairment Pt unable to propel himself well in w/c due to severely limited R UE ROM Correction Goal (LTG) Pt to improve right shoulder ROM to 100? flexion and abduction and increase IR to reach back to at least his left SI area in order to better propel his wheelchair independently. LTG Duration 03/14/22 Two Impairment Pt unable to step inside // bars due to severe ankle weakness and neuropath Lace Cutter Goal (LTG) Pt to ambulate 50' using least restrictive AD CGA while wearing appropriate AFOs to limit impact of foot drop to allow him to be more functionally mobile at home, including getting to the bathroom. LTG Duration 03/14/22 One Impairment Pt does not have an appropriate home exercise program Short Term Goal (STG) Pt to be independent and compliant with an appropriate HEP STG Duration 01/28/22 Assessment Summary Assessment Pt continues to be limited by fatigue and decreased O2 sat, also unable currently to use UEs to help himself sit->stand , relies on pulling himself up using FWW Physical Therapy Plan Frequency and Duration Frequency of Treatment 2x/Week Plan of Care Start Date 12/14/21 Plan of Care End Date 03/14/22 Therapeutic Interventions Therapeutic Interventions Aquatic Therapy,Balance Training,Coordination Training ,Gait Training,Home Exercise Program,Lymphedema Management, Manual Therapy,Neuromuscular Re-education,Orthotic/ Prosthetic Management,Patient/ Caregiver Education,Self-Care/ Home Management,Soft Tissue Mobilization,Therapeutic Activities,Therapeutic Exercises,Wheelchair Management Modalities Cold Pack/Ice Massage,Electric Stimulation,Hot Packs, Ultrasound Next Visit Focus/Plan Next Note Type Treatment Note Next Visit Plan Work toward vehicle transfers, Amb FWW outside of // bars, activity tolerance, sit<-> stand, LE strengthening, UE ROM.
--- NOTE | 2022-03-14 15:49 | PT-OP ANOTE ---
Spoke with pt's by phone following pt's discharge from ICU due to pneumonia. Reports doctors were insistent that continued therapy and getting up and moving is the best thing for him, and they are looking forward to returning to PT later this week.
--- NOTE | 2022-03-17 15:17 | PT.OTN ---
Current Diagnoses Muscle weakness (generalized) (03/17/22) Unspecified abnormalities of gait and mobility (03/17/22) Other symptoms and signs involving the musculoskeletal system (03/17/22) Other fatigue (03/17/22) Other reduced mobility (03/17/22) Physical Therapy Treatment Note PT-OP-A Visit Information Start: 12/14/21 17:57 Freq: Status: Active Protocol: Document 03/17/22 14:30 DCW (Rec: 03/17/22 15:17 DCW [id number]) Out-Patient Physical Therapy Visit Information Visit Information Visit Type Treatment Note Visit Start Time 14:30 Visit Stop Time 15:15 Total Visit Minutes 45 Visit Number 25 Number of REHABILITATION TEAM LEAD Visits 0 Evaluation Information Evaluation Date 12/14/21 PT-OP-B Current Condition Start: 12/14/21 17:57 Freq: Status: Active Protocol: Document 12/14/21 16:00 DCW (Rec: 12/14/21 18:10 DCW [id number]) Current Condition History of Current Condition Onset Date February, Current Complaints Physical debility, deconditioning, limited mobility, weakness History of Current Condition Pt is a 71 year old male presenting with a very complicated medical history. Pt was vacationing in [place] in February,, when he was hospitalized with a bacterial respiratory infection. He was there for two weeks, and then airlifted to [facility] in [place], where he remained for 90 days, including a long stay on a respirator. He was released from [facility] on May 17, 2021 and sent to a rehab facility in [place] until October 06, 2021, and then finally released home. Pt had home health PT for a few weeks, but they stopped coming after pt developed pressure ulcers. Pt is now healed, and feeling improved enough to begin outpatient therapy. Pt is dramatically deconditioned, limited to w/c mobility, and only uses a FWW and Mod Ax1 to stand for 1-2 minutes at a time. Pt complains of ongoing neuropathy and foot drop, both of which began during his hospital stay. is primary caregiver, but they do have an additional caregiver come for four hours a day. They have purchased a recumbent elliptical for exercise, and pt has improved from using it on level 0 for 5 minutes to level 8 for an hour or more. Pt notes that he has been trying to get a prescription for AFOs to help with his drop foot, as he is unable to take a step due to 0/5 ankle weakness. Able to slowly mobilize himself in his manual wheelchair, but unable to propell himself with his LEs. Treatment Goals Patient/Caregiver Goals Pt wants to be able to get up and take a few steps. Personal Factors Other Personal Factors That May Effect Obesity, limited R shoulder Therapy/Recovery mobility, severe ankle weakness/drop foot, Hx PE, lymphedema, neuropathy PT-OP-C Subjective Start: 12/14/21 17:57 Freq: Status: Active Protocol: Document 03/17/22 14:30 DCW (Rec: 03/17/22 15:17 DCW [id number]) OP-PT Subjective Patient Comments Patient Comments Pt returns after hospitalization due to pneumonia. Feeling much better , still fatiguing more quickly , but breathing is much better . PT-OP-G Mobility & Gait Start: 12/14/21 17:57 Freq: Status: Active Protocol: Document 03/17/22 14:30 DCW (Rec: 03/17/22 15:00 DCW [id number]) OP Mobility Evaluation Transfers Sit to Stand Pt able to sit->stand from w/c Min Ax1 using UE assist on // bars. Pt requires Mod Ax2 at home with and caregiver holding FWW stable so he can pull himself up. Wheelchair Management Type of Wheelchair Manual Assessment Details Pt showing increased use of UEs while propelling wheelchair, although still very slow speed. OP Gait Assessment Comments Gait Comments FWW SBA 40', decreased foot clearance, decreased spenser, heavily relies on UE support. Struggles with turning FWW, requires very wide turning radius. PT-OP-K Range of Motion Start: 12/14/21 17:57 Freq: Status: Active Protocol: Document 03/17/22 14:30 DCW (Rec: 03/17/22 15:00 DCW [id number]) Shoulder Goniometric Range of Motion Shoulder Right Active Shoulder ROM WFL No Testing Position Sitting Flexion 78 Abduction 86 Internal Rotation Behind Back (text) R PSIS PT-OP-M Strength Start: 12/14/21 17:57 Freq: Status: Active Protocol: Document 03/17/22 14:30 DCW (Rec: 03/17/22 15:00 DCW [id number]) Hip Strength Hip Manual Muscle Testing Right Flexion (L2) 3- Fair- Abduction 4- Good- Adduction 4- Good- Left Flexion (L2) 2 Poor Abduction 4- Good- Adduction 4- Good- Knee Strength Knee Manual Muscle Testing Right Flexion (S2) 2+ Poor+ Extension (L3) 4+ Good+ Left Flexion (S2) 3- Fair- Extension (L3) 4+ Good+ Comments Pain with resisted flexion Ankle/Foot Strength Ankle and Foot Manual Muscle Testing Right Dorsiflexion (L4) 0 Zero Plantarflexion (S1) 2+ Poor+ Inversion 0 Zero Eversion (S1) 0 Zero Left Dorsiflexion (L4) 0 Zero Plantarflexion (S1) 1 Trace Inversion 0 Zero Eversion (S1) 0 Zero PT-OP-Q Treatments Start: 12/14/21 17:57 Freq: Status: Active Protocol: Document 03/17/22 14:30 DCW (Rec: 03/17/22 15:17 DCW [id number]) Therapeutic Activity Therapeutic Activity Sit<->stand Name StS x4 Comments FWW held in place by /PT, VCs for hand placement and sequencing Gait Training Gait Activity FWW Description Fwd amb /c FWW Device Used Bariactric FWW Level of Assistance CGA Comments 40' x2 /c FWW, working on decreasing turn radius PT-OP-T Assessment and Plan Start: 12/14/21 17:57 Freq: Status: Active Protocol: Document 03/17/22 14:30 DCW (Rec: 03/17/22 15:17 DCW [id number]) Physical Therapy Assessment Impairments Impairments Activity Tolerance,Balance, Edema,Functional Activities, Functional Mobility,Gait,ROM, Sensation,Strength,Tone, Transfers Goals Three Impairment Pt unable to propel himself well in w/c due to severely limited R UE ROM Bareback Rider Goal (LTG) Pt to improve right shoulder ROM to 100? flexion and abduction and increase IR to reach back to at least his left SI area in order to better propel his wheelchair independently. LTG Duration 06/15/22 Two Impairment Pt unable to step inside // bars due to severe ankle weakness and neuropath [facility] Goal (LTG) Pt to ambulate 50' using least restrictive AD CGA while wearing appropriate AFOs to limit impact of foot drop to allow him to be more functionally mobile at home, including getting to the bathroom. LTG Duration 06/15/22 One Impairment Pt does not have an appropriate home exercise program Short Term Goal (STG) Pt to be independent and compliant with an appropriate HEP STG Duration 05/18/22 Progress Towards Goals Progress Towards Goals Slow Progress due to Medical Issues Assessment Summary Assessment Pt showing great progress since initial evaluation, even after recent hospitalization due to pneumonia. Pt transfers much better, able to tolerate ambulation for 40' CGA /c FWW . Continues to display decreased, although improving, activity tolerance. Continues to be unable to actually use upper extremities to assist with sit<->stand, and therefore relies on two peoplae trying to stabilize FWW. Need to continue to work on addressing this issue, or else pt will be unable to perform car transfers with just him and his at home. Physical Therapy Plan Frequency and Duration Frequency of Treatment 2x/Week Plan of Care Start Date 03/17/22 Plan of Care End Date 06/15/22 Therapeutic Interventions Therapeutic Interventions Aquatic Therapy,Balance Training,Coordination Training ,Gait Training,Home Exercise Program,Lymphedema Management, Manual Therapy,Neuromuscular Re-education,Orthotic/ Prosthetic Management,Patient/ Caregiver Education,Self-Care/ Home Management,Soft Tissue Mobilization,Therapeutic Activities,Therapeutic Exercises,Wheelchair Management Modalities Cold Pack/Ice Massage,Electric Stimulation,Hot Packs, Ultrasound Next Visit Focus/Plan Next Note Type Treatment Note Next Visit Plan Work toward vehicle transfers, Amb FWW outside of // bars, activity tolerance, sit<-> stand, LE strengthening, UE ROM.
--- NOTE | 2022-03-17 15:18 | PT.OPPOC ---
Physical, Occupational & Speech Therapy At [facility] Current Diagnoses Muscle weakness (generalized) (03/17/22) Unspecified abnormalities of gait and mobility (03/17/22) Other symptoms and signs involving the musculoskeletal system (03/17/22) Other fatigue (03/17/22) Other reduced mobility (03/17/22) Visit Care Team Role Provider Type Brandon Houston MD Attending Provider Physician Family Provider Primary Care Provider Referring Provider Specialty: Internal Medicine Address: [address] [place] [address], [address], [facility] Email: [email or web address] Plan Of Care PT-OP-T Assessment and Plan Start: 12/14/21 17:57 Freq: Status: Active Protocol: Document 03/17/22 14:30 DCW (Rec: 03/17/22 15:17 DCW [id number]) Physical Therapy Assessment Impairments Impairments Activity Tolerance,Balance, Edema,Functional Activities, Functional Mobility,Gait,ROM, Sensation,Strength,Tone, Transfers Goals Three Impairment Pt unable to propel himself well in w/c due to severely limited R UE ROM [facility] Goal (LTG) Pt to improve right shoulder ROM to 100? flexion and abduction and increase IR to reach back to at least his left SI area in order to better propel his wheelchair independently. LTG Duration 06/15/22 Two Impairment Pt unable to step inside // bars due to severe ankle weakness and neuropath [facility] Goal (LTG) Pt to ambulate 50' using least restrictive AD CGA while wearing appropriate AFOs to limit impact of foot drop to allow him to be more functionally mobile at home, including getting to the bathroom. LTG Duration 06/15/22 One Impairment Pt does not have an appropriate home exercise program Short Term Goal (STG) Pt to be independent and compliant with an appropriate HEP STG Duration 05/18/22 Progress Towards Goals Progress Towards Goals Slow Progress due to Medical Issues Assessment Summary Assessment Pt showing great progress since initial evaluation, even after recent hospitalization due to pneumonia. Pt transfers much better, able to tolerate ambulation for 40' CGA /c FWW . Continues to display decreased, although improving, activity tolerance. Continues to be unable to actually use upper extremities to assist with sit<->stand, and therefore relies on two people trying to stabilize FWW. Need to continue to work on addressing this issue, or else pt will be unable to perform car transfers with just him and his at home. Physical Therapy Plan Frequency and Duration Frequency of Treatment 2x/Week Plan of Care Start Date 03/17/22 Plan of Care End Date 06/15/22 Therapeutic Interventions Therapeutic Interventions Aquatic Therapy,Balance Training,Coordination Training ,Gait Training,Home Exercise Program,Lymphedema Management, Manual Therapy,Neuromuscular Re-education,Orthotic/ Prosthetic Management,Patient/ Caregiver Education,Self-Care/ Home Management,Soft Tissue Mobilization,Therapeutic Activities,Therapeutic Exercises,Wheelchair Management Modalities Cold Pack/Ice Massage,Electric Stimulation,Hot Packs, Ultrasound Next Visit Focus/Plan Next Note Type Treatment Note Next Visit Plan Work toward vehicle transfers, Amb FWW outside of // bars, activity tolerance, sit<-> stand, LE strengthening, UE ROM. Plan of Care Dates Plan of Care Start Date 03/17/22 Plan of Care End Date 06/15/22 Electronically Signed by: Rikki Lopez, PT 03/17/22 2161 If you are in agreement with this Plan of Care, please return a signed and dated copy. I have reviewed this Plan of Care and certify that the skilled therapy services above are required to meet the patient?s needs. Physician Signature Date Printed Name and Credentials Clinical Instructor Signature Printed Name and Credentials
--- NOTE | 2022-03-21 15:02 | PT.OTN ---
Current Diagnoses Muscle weakness (generalized) (03/21/22) Unspecified abnormalities of gait and mobility (03/21/22) Other symptoms and signs involving the musculoskeletal system (03/21/22) Other fatigue (03/21/22) Other reduced mobility (03/21/22) Physical Therapy Treatment Note PT-OP-A Visit Information Start: 12/14/21 17:57 Freq: Status: Active Protocol: Document 03/21/22 14:05 DCW (Rec: 03/21/22 15:02 DCW [id number]) Out-Patient Physical Therapy Visit Information Visit Information Visit Type Treatment Note Visit Start Time 14:05 Visit Stop Time 14:50 Total Visit Minutes 45 Visit Number 26 Number of RAILWAY YARD ASSISTANT Visits 0 Evaluation Information Evaluation Date 12/14/21 PT-OP-B Current Condition Start: 12/14/21 17:57 Freq: Status: Active Protocol: Document 12/14/21 16:00 DCW (Rec: 12/14/21 18:10 DCW [id number]) Current Condition History of Current Condition Onset Date February, Current Complaints Physical debility, deconditioning, limited mobility, weakness History of Current Condition Pt is a 71 year old male presenting with a very complicated medical history. Pt was vacationing in [place] in February,, when he was hospitalized with a bacterial respiratory infection. He was there for two weeks, and then airlifted to [facility] in [place], where he remained for 90 days, including a long stay on a respirator. He was released from [facility] on May 17, 2021 and sent to a rehab facility in [place] until October 06, 2021, and then finally released home. Pt had home health PT for a few weeks, but they stopped coming after pt developed pressure ulcers. Pt is now healed, and feeling improved enough to begin outpatient therapy. Pt is dramatically deconditioned, limited to w/c mobility, and only uses a FWW and Mod Ax1 to stand for 1-2 minutes at a time. Pt complains of ongoing neuropathy and foot drop, both of which began during his hospital stay. is primary caregiver, but they do have an additional caregiver come for four hours a day. They have purchased a recumbent elliptical for exercise, and pt has improved from using it on level 0 for 5 minutes to level 8 for an hour or more. Pt notes that he has been trying to get a prescription for AFOs to help with his drop foot, as he is unable to take a step due to 0/5 ankle weakness. Able to slowly mobilize himself in his manual wheelchair, but unable to propell himself with his LEs. Treatment Goals Patient/Caregiver Goals Pt wants to be able to get up and take a few steps. Personal Factors Other Personal Factors That May Effect Obesity, limited R shoulder Therapy/Recovery mobility, severe ankle weakness/drop foot, Hx PE, lymphedema, neuropathy PT-OP-C Subjective Start: 12/14/21 17:57 Freq: Status: Active Protocol: Document 03/21/22 14:05 DCW (Rec: 03/21/22 15:02 DCW [id number]) OP-PT Subjective Patient Comments Patient Comments Pt continues to feel much better following his recent hospitalization. PT-OP-G Mobility & Gait Start: 12/14/21 17:57 Freq: Status: Active Protocol: Document 03/17/22 14:30 DCW (Rec: 03/17/22 15:00 DCW [id number]) OP Mobility Evaluation Transfers Sit to Stand Pt able to sit->stand from w/c Min Ax1 using UE assist on // bars. Pt requires Mod Ax2 at home with and caregiver holding FWW stable so he can pull himself up. Wheelchair Management Type of Wheelchair Manual Assessment Details Pt showing increased use of UEs while propelling wheelchair, although still very slow speed. OP Gait Assessment Comments Gait Comments FWW SBA 40', decreased foot clearance, decreased spenser, heavily relies on UE support. Struggles with turning FWW, requires very wide turning radius. PT-OP-K Range of Motion Start: 12/14/21 17:57 Freq: Status: Active Protocol: Document 03/17/22 14:30 DCW (Rec: 03/17/22 15:00 DCW [id number]) Shoulder Goniometric Range of Motion Shoulder Right Active Shoulder ROM WFL No Testing Position Sitting Flexion 78 Abduction 86 Internal Rotation Behind Back (text) R PSIS PT-OP-M Strength Start: 12/14/21 17:57 Freq: Status: Active Protocol: Document 03/17/22 14:30 DCW (Rec: 03/17/22 15:00 DCW [id number]) Hip Strength Hip Manual Muscle Testing Right Flexion (L2) 3- Fair- Abduction 4- Good- Adduction 4- Good- Left Flexion (L2) 2 Poor Abduction 4- Good- Adduction 4- Good- Knee Strength Knee Manual Muscle Testing Right Flexion (S2) 2+ Poor+ Extension (L3) 4+ Good+ Left Flexion (S2) 3- Fair- Extension (L3) 4+ Good+ Comments Pain with resisted flexion Ankle/Foot Strength Ankle and Foot Manual Muscle Testing Right Dorsiflexion (L4) 0 Zero Plantarflexion (S1) 2+ Poor+ Inversion 0 Zero Eversion (S1) 0 Zero Left Dorsiflexion (L4) 0 Zero Plantarflexion (S1) 1 Trace Inversion 0 Zero Eversion (S1) 0 Zero PT-OP-Q Treatments Start: 12/14/21 17:57 Freq: Status: Active Protocol: Document 03/21/22 14:05 DCW (Rec: 03/21/22 15:02 DC [id number]) Therapeutic Exercises Sitting Exercises Chest Press Sitting Exercise Name UE Chest Press /c PVC Resistance 7# Reps/Minutes x10 UE PNF Sitting Exercise Name PNF B UE Lift Resistance 5.5# ball Reps/Minutes x8 Therapeutic Activity Therapeutic Activity Transfers Name Tight stand-pivot transfers Reps/Minutes w/c<->chair Comments Mimic car transfers Sit<->stand Name StS x4 Comments FWW held in place by /PT, VCs for hand placement and sequencing, able to use one UE to help push Gait Training Gait Activity FWW Description Fwd amb /c FWW Device Used Bariactric FWW Level of Assistance CGA Comments 40' x2 /c FWW, working on decreasing turn radius PT-OP-T Assessment and Plan Start: 12/14/21 17:57 Freq: Status: Active Protocol: Document 03/21/22 14:05 DCW (Rec: 03/21/22 15:02 DCW [id number]) Physical Therapy Assessment Impairments Impairments Activity Tolerance,Balance, Edema,Functional Activities, Functional Mobility,Gait,ROM, Sensation,Strength,Tone, Transfers Goals Three Impairment Pt unable to propel himself well in w/c due to severely limited R UE ROM [facility] Goal (LTG) Pt to improve right shoulder ROM to 100? flexion and abduction and increase IR to reach back to at least his left SI area in order to better propel his wheelchair independently. LTG Duration 06/15/22 Two Impairment Pt unable to step inside // bars due to severe ankle weakness and neuropath [facility] Goal (LTG) Pt to ambulate 50' using least restrictive AD CGA while wearing appropriate AFOs to limit impact of foot drop to allow him to be more functionally mobile at home, including getting to the bathroom. LTG Duration 06/15/22 One Impairment Pt does not have an appropriate home exercise program Short Term Goal (STG) Pt to be independent and compliant with an appropriate HEP STG Duration 05/18/22 Progress Towards Goals Progress Towards Goals Slow Progress due to Medical Issues Assessment Summary Assessment Pt finally able to assist using his UEs with sit->stand, although did then require more therapist-assistance. Worked more on stand-pivot turns in prep for car transfers. Physical Therapy Plan Frequency and Duration Frequency of Treatment 2x/Week Plan of Care Start Date 03/17/22 Plan of Care End Date 06/15/22 Therapeutic Interventions Therapeutic Interventions Aquatic Therapy,Balance Training,Coordination Training ,Gait Training,Home Exercise Program,Lymphedema Management, Manual Therapy,Neuromuscular Re-education,Orthotic/ Prosthetic Management,Patient/ Caregiver Education,Self-Care/ Home Management,Soft Tissue Mobilization,Therapeutic Activities,Therapeutic Exercises,Wheelchair Management Modalities Cold Pack/Ice Massage,Electric Stimulation,Hot Packs, Ultrasound Next Visit Focus/Plan Next Note Type Treatment Note Next Visit Plan Work toward vehicle transfers, Amb FWW outside of // bars, activity tolerance, sit<-> stand, LE strengthening, UE ROM.
--- NOTE | 2022-03-31 15:58 | PT.OTN ---
Current Diagnoses Muscle weakness (generalized) (03/31/22) Unspecified abnormalities of gait and mobility (03/31/22) Other symptoms and signs involving the musculoskeletal system (03/31/22) Other fatigue (03/31/22) Other reduced mobility (03/31/22) Physical Therapy Treatment Note PT-OP-A Visit Information Start: 12/14/21 17:57 Freq: Status: Active Protocol: Document 03/31/22 15:15 DCW (Rec: 03/31/22 15:58 DCW [id number]) Out-Patient Physical Therapy Visit Information Visit Information Visit Type Treatment Note Visit Start Time 15:15 Visit Stop Time 16:00 Total Visit Minutes 45 Visit Number 27 Number of MANUFACTURING ENGINEER MACHINING Visits 0 Evaluation Information Evaluation Date 12/14/21 PT-OP-B Current Condition Start: 12/14/21 17:57 Freq: Status: Active Protocol: Document 12/14/21 16:00 DCW (Rec: 12/14/21 18:10 DCW [id number]) Current Condition History of Current Condition Onset Date February, Current Complaints Physical debility, deconditioning, limited mobility, weakness History of Current Condition Pt is a 71 year old male presenting with a very complicated medical history. Pt was vacationing in [place] in February,, when he was hospitalized with a bacterial respiratory infection. He was there for two weeks, and then airlifted to [facility] in [place], where he remained for 90 days, including a long stay on a respirator. He was released from [facility] on May 17, 2021 and sent to a rehab facility in [place] until October 06, 2021, and then finally released home. Pt had home health PT for a few weeks, but they stopped coming after pt developed pressure ulcers. Pt is now healed, and feeling improved enough to begin outpatient therapy. Pt is dramatically deconditioned, limited to w/c mobility, and only uses a FWW and Mod Ax1 to stand for 1-2 minutes at a time. Pt complains of ongoing neuropathy and foot drop, both of which began during his hospital stay. is primary caregiver, but they do have an additional caregiver come for four hours a day. They have purchased a recumbent elliptical for exercise, and pt has improved from using it on level 0 for 5 minutes to level 8 for an hour or more. Pt notes that he has been trying to get a prescription for AFOs to help with his drop foot, as he is unable to take a step due to 0/5 ankle weakness. Able to slowly mobilize himself in his manual wheelchair, but unable to propell himself with his LEs. Treatment Goals Patient/Caregiver Goals Pt wants to be able to get up and take a few steps. Personal Factors Other Personal Factors That May Effect Obesity, limited R shoulder Therapy/Recovery mobility, severe ankle weakness/drop foot, Hx PE, lymphedema, neuropathy PT-OP-C Subjective Start: 12/14/21 17:57 Freq: Status: Active Protocol: Document 03/31/22 15:15 DCW (Rec: 03/31/22 15:58 DCW [id number]) OP-PT Subjective Patient Comments Patient Comments Pt reports his breathing has been feeling better, measuring ~96-97% at home. PT-OP-G Mobility & Gait Start: 12/14/21 17:57 Freq: Status: Active Protocol: Document 03/17/22 14:30 DCW (Rec: 03/17/22 15:00 DCW [id number]) OP Mobility Evaluation Transfers Sit to Stand Pt able to sit->stand from w/c Min Ax1 using UE assist on // bars. Pt requires Mod Ax2 at home with and caregiver holding FWW stable so he can pull himself up. Wheelchair Management Type of Wheelchair Manual Assessment Details Pt showing increased use of UEs while propelling wheelchair, although still very slow speed. OP Gait Assessment Comments Gait Comments FWW SBA 40', decreased foot clearance, decreased spenser, heavily relies on UE support. Struggles with turning FWW, requires very wide turning radius. PT-OP-K Range of Motion Start: 12/14/21 17:57 Freq: Status: Active Protocol: Document 03/17/22 14:30 DCW (Rec: 03/17/22 15:00 DCW [id number]) Shoulder Goniometric Range of Motion Shoulder Right Active Shoulder ROM WFL No Testing Position Sitting Flexion 78 Abduction 86 Internal Rotation Behind Back (text) R PSIS PT-OP-M Strength Start: 12/14/21 17:57 Freq: Status: Active Protocol: Document 03/17/22 14:30 DCW (Rec: 03/17/22 15:00 DCW [id number]) Hip Strength Hip Manual Muscle Testing Right Flexion (L2) 3- Fair- Abduction 4- Good- Adduction 4- Good- Left Flexion (L2) 2 Poor Abduction 4- Good- Adduction 4- Good- Knee Strength Knee Manual Muscle Testing Right Flexion (S2) 2+ Poor+ Extension (L3) 4+ Good+ Left Flexion (S2) 3- Fair- Extension (L3) 4+ Good+ Comments Pain with resisted flexion Ankle/Foot Strength Ankle and Foot Manual Muscle Testing Right Dorsiflexion (L4) 0 Zero Plantarflexion (S1) 2+ Poor+ Inversion 0 Zero Eversion (S1) 0 Zero Left Dorsiflexion (L4) 0 Zero Plantarflexion (S1) 1 Trace Inversion 0 Zero Eversion (S1) 0 Zero PT-OP-Q Treatments Start: 12/14/21 17:57 Freq: Status: Active Protocol: Document 03/31/22 15:15 DCW (Rec: 03/31/22 15:58 DCW [id number]) Therapeutic Exercises Sitting Exercises Triceps extension Sitting Exercise Name Triceps ext/press-downs Side bilateral Resistance Lv 3->5 Therapeutic Activity Therapeutic Activity Sit<->stand Name StS x2 Comments FWW held in place by /PT, VCs for hand placement and sequencing, able to use one UE to help push, then chair push -ups x8 Gait Training Gait Activity FWW Description Fwd amb /c FWW Device Used Bariactric FWW Level of Assistance CGA Comments 90' /c FWW, working on decreasing turn radius PT-OP-T Assessment and Plan Start: 12/14/21 17:57 Freq: Status: Active Protocol: Document 03/31/22 15:15 DCW (Rec: 03/31/22 15:58 DCW [id number]) Physical Therapy Assessment Impairments Impairments Activity Tolerance,Balance, Edema,Functional Activities, Functional Mobility,Gait,ROM, Sensation,Strength,Tone, Transfers Goals Three Impairment Pt unable to propel himself well in w/c due to severely limited R UE ROM Microfiche Camera Operator Goal (LTG) Pt to improve right shoulder ROM to 100? flexion and abduction and increase IR to reach back to at least his left SI area in order to better propel his wheelchair independently. LTG Duration 06/15/22 Two Impairment Pt unable to step inside // bars due to severe ankle weakness and neuropath Microfiche Camera Operator Goal (LTG) Pt to ambulate 50' using least restrictive AD CGA while wearing appropriate AFOs to limit impact of foot drop to allow him to be more functionally mobile at home, including getting to the bathroom. LTG Duration 06/15/22 One Impairment Pt does not have an appropriate home exercise program Short Term Goal (STG) Pt to be independent and compliant with an appropriate HEP STG Duration 05/18/22 Progress Towards Goals Progress Towards Goals Slow Progress due to Medical Issues Assessment Summary Assessment Increased gait distance today, able to ambulate 90' without rest. Additionally, increased focus on sit<->stand motion using UEs with both chair push -ups and press-downs. Pt continues to improve overall functional abilities. Physical Therapy Plan Frequency and Duration Frequency of Treatment 2x/Week Plan of Care Start Date 03/17/22 Plan of Care End Date 06/15/22 Therapeutic Interventions Therapeutic Interventions Aquatic Therapy,Balance Training,Coordination Training ,Gait Training,Home Exercise Program,Lymphedema Management, Manual Therapy,Neuromuscular Re-education,Orthotic/ Prosthetic Management,Patient/ Caregiver Education,Self-Care/ Home Management,Soft Tissue Mobilization,Therapeutic Activities,Therapeutic Exercises,Wheelchair Management Modalities Cold Pack/Ice Massage,Electric Stimulation,Hot Packs, Ultrasound Next Visit Focus/Plan Next Note Type Treatment Note Next Visit Plan Work toward vehicle transfers, Amb FWW outside of // bars, activity tolerance, sit<-> stand, LE strengthening, UE ROM.
--- NOTE | 2022-04-08 15:09 | PT.OTN ---
Current Diagnoses Muscle weakness (generalized) (04/08/22) Unspecified abnormalities of gait and mobility (04/08/22) Other symptoms and signs involving the musculoskeletal system (04/08/22) Other fatigue (04/08/22) Other reduced mobility (04/08/22) Physical Therapy Treatment Note PT-OP-A Visit Information Start: 12/14/21 17:57 Freq: Status: Active Protocol: Document 04/08/22 14:15 DCW (Rec: 04/08/22 15:09 DCW [id number]) Out-Patient Physical Therapy Visit Information Visit Information Visit Type Treatment Note Visit Start Time 14:15 Visit Stop Time 15:00 Total Visit Minutes 45 Visit Number 28 Number of RUBBER THREAD SPOOLER Visits 0 Evaluation Information Evaluation Date 12/14/21 PT-OP-B Current Condition Start: 12/14/21 17:57 Freq: Status: Active Protocol: Document 12/14/21 16:00 DCW (Rec: 12/14/21 18:10 DCW [id number]) Current Condition History of Current Condition Onset Date February, Current Complaints Physical debility, deconditioning, limited mobility, weakness History of Current Condition Pt is a 71 year old male presenting with a very complicated medical history. Pt was vacationing in [place] in February,, when he was hospitalized with a bacterial respiratory infection. He was there for two weeks, and then airlifted to [facility] in [place], where he remained for 90 days, including a long stay on a respirator. He was released from [facility] on May 17, 2021 and sent to a rehab facility in [place] until October 06, 2021, and then finally released home. Pt had home health PT for a few weeks, but they stopped coming after pt developed pressure ulcers. Pt is now healed, and feeling improved enough to begin outpatient therapy. Pt is dramatically deconditioned, limited to w/c mobility, and only uses a FWW and Mod Ax1 to stand for 1-2 minutes at a time. Pt complains of ongoing neuropathy and foot drop, both of which began during his hospital stay. is primary caregiver, but they do have an additional caregiver come for four hours a day. They have purchased a recumbent elliptical for exercise, and pt has improved from using it on level 0 for 5 minutes to level 8 for an hour or more. Pt notes that he has been trying to get a prescription for AFOs to help with his drop foot, as he is unable to take a step due to 0/5 ankle weakness. Able to slowly mobilize himself in his manual wheelchair, but unable to propell himself with his LEs. Treatment Goals Patient/Caregiver Goals Pt wants to be able to get up and take a few steps. Personal Factors Other Personal Factors That May Effect Obesity, limited R shoulder Therapy/Recovery mobility, severe ankle weakness/drop foot, Hx PE, lymphedema, neuropathy PT-OP-C Subjective Start: 12/14/21 17:57 Freq: Status: Active Protocol: Document 04/08/22 14:15 DCW (Rec: 04/08/22 15:09 DCW [id number]) OP-PT Subjective Patient Comments Patient Comments Pt still struggling with some digestive issues, spoke with physician, feel it is likely due to the antibiotics he had been on recently. PT-OP-G Mobility & Gait Start: 12/14/21 17:57 Freq: Status: Active Protocol: Document 03/17/22 14:30 DCW (Rec: 03/17/22 15:00 DCW [id number]) OP Mobility Evaluation Transfers Sit to Stand Pt able to sit->stand from w/c Min Ax1 using UE assist on // bars. Pt requires Mod Ax2 at home with and caregiver holding FWW stable so he can pull himself up. Wheelchair Management Type of Wheelchair Manual Assessment Details Pt showing increased use of UEs while propelling wheelchair, although still very slow speed. OP Gait Assessment Comments Gait Comments FWW SBA 40', decreased foot clearance, decreased spenser, heavily relies on UE support. Struggles with turning FWW, requires very wide turning radius. PT-OP-K Range of Motion Start: 12/14/21 17:57 Freq: Status: Active Protocol: Document 03/17/22 14:30 DCW (Rec: 03/17/22 15:00 DCW [id number]) Shoulder Goniometric Range of Motion Shoulder Right Active Shoulder ROM WFL No Testing Position Sitting Flexion 78 Abduction 86 Internal Rotation Behind Back (text) R PSIS PT-OP-M Strength Start: 12/14/21 17:57 Freq: Status: Active Protocol: Document 03/17/22 14:30 DCW (Rec: 03/17/22 15:00 DCW [id number]) Hip Strength Hip Manual Muscle Testing Right Flexion (L2) 3- Fair- Abduction 4- Good- Adduction 4- Good- Left Flexion (L2) 2 Poor Abduction 4- Good- Adduction 4- Good- Knee Strength Knee Manual Muscle Testing Right Flexion (S2) 2+ Poor+ Extension (L3) 4+ Good+ Left Flexion (S2) 3- Fair- Extension (L3) 4+ Good+ Comments Pain with resisted flexion Ankle/Foot Strength Ankle and Foot Manual Muscle Testing Right Dorsiflexion (L4) 0 Zero Plantarflexion (S1) 2+ Poor+ Inversion 0 Zero Eversion (S1) 0 Zero Left Dorsiflexion (L4) 0 Zero Plantarflexion (S1) 1 Trace Inversion 0 Zero Eversion (S1) 0 Zero PT-OP-Q Treatments Start: 12/14/21 17:57 Freq: Status: Active Protocol: Document 04/08/22 14:15 DCW (Rec: 04/08/22 15:09 DCW [id number]) Therapeutic Exercises Sitting Exercises Chest Press Sitting Exercise Name UE Chest Press /c PVC Resistance 7# Reps/Minutes x10 UE PNF Sitting Exercise Name PNF B UE Lift Resistance 5.5# ball Reps/Minutes x8 Therapeutic Activity Therapeutic Activity Sit<->stand Name StS x2 Comments FWW held in place by /PT, VCs for hand placement and sequencing, able to use one UE to help push, then chair push -ups x10 Gait Training Gait Activity FWW Description Fwd amb /c FWW Device Used Bariactric FWW Level of Assistance CGA Comments 90' /c FWW, working on decreasing turn radius PT-OP-T Assessment and Plan Start: 12/14/21 17:57 Freq: Status: Active Protocol: Document 04/08/22 14:15 DCW (Rec: 04/08/22 15:09 DCW [id number]) Physical Therapy Assessment Impairments Impairments Activity Tolerance,Balance, Edema,Functional Activities, Functional Mobility,Gait,ROM, Sensation,Strength,Tone, Transfers Goals Three Impairment Pt unable to propel himself well in w/c due to severely limited R UE ROM Jail Goal (LTG) Pt to improve right shoulder ROM to 100? flexion and abduction and increase IR to reach back to at least his left SI area in order to better propel his wheelchair independently. LTG Duration 06/15/22 Two Impairment Pt unable to step inside // bars due to severe ankle weakness and neuropath Fast Food Shift Supervisor Goal (LTG) Pt to ambulate 50' using least restrictive AD CGA while wearing appropriate AFOs to limit impact of foot drop to allow him to be more functionally mobile at home, including getting to the bathroom. LTG Duration 06/15/22 One Impairment Pt does not have an appropriate home exercise program Short Term Goal (STG) Pt to be independent and compliant with an appropriate HEP STG Duration 05/18/22 Progress Towards Goals Progress Towards Goals Slow Progress due to Medical Issues Assessment Summary Assessment Pt similar today vs last week, gait distance remained 90'. Struggles to use UEs for sit<- >stand, still needs someone to hold FWW stable for support to get to standing. Appears to be fairly fatigued still from recent illness, will hopefully make further gains as he recovers. Physical Therapy Plan Frequency and Duration Frequency of Treatment 2x/Week Plan of Care Start Date 03/17/22 Plan of Care End Date 06/15/22 Therapeutic Interventions Therapeutic Interventions Aquatic Therapy,Balance Training,Coordination Training ,Gait Training,Home Exercise Program,Lymphedema Management, Manual Therapy,Neuromuscular Re-education,Orthotic/ Prosthetic Management,Patient/ Caregiver Education,Self-Care/ Home Management,Soft Tissue Mobilization,Therapeutic Activities,Therapeutic Exercises,Wheelchair Management Modalities Cold Pack/Ice Massage,Electric Stimulation,Hot Packs, Ultrasound Next Visit Focus/Plan Next Note Type Treatment Note Next Visit Plan Work toward vehicle transfers, Amb FWW outside of // bars, activity tolerance, sit<-> stand, LE strengthening, UE ROM.
--- NOTE | 2022-04-12 15:14 | PT.OTN ---
Current Diagnoses Muscle weakness (generalized) (04/12/22) Unspecified abnormalities of gait and mobility (04/12/22) Other symptoms and signs involving the musculoskeletal system (04/12/22) Other fatigue (04/12/22) Other reduced mobility (04/12/22) Physical Therapy Treatment Note PT-OP-A Visit Information Start: 12/14/21 17:57 Freq: Status: Active Protocol: Document 04/12/22 14:30 DCW (Rec: 04/12/22 15:14 DCW [id number]) Out-Patient Physical Therapy Visit Information Visit Information Visit Type Treatment Note Visit Start Time 14:30 Visit Stop Time 15:15 Total Visit Minutes 45 Visit Number 29 Number of SENIOR FIRE PROTECTION ENGINEER Visits 0 Evaluation Information Evaluation Date 12/14/21 PT-OP-B Current Condition Start: 12/14/21 17:57 Freq: Status: Active Protocol: Document 12/14/21 16:00 DCW (Rec: 12/14/21 18:10 DCW [id number]) Current Condition History of Current Condition Onset Date February, Current Complaints Physical debility, deconditioning, limited mobility, weakness History of Current Condition Pt is a 71 year old male presenting with a very complicated medical history. Pt was vacationing in [place] in February,, when he was hospitalized with a bacterial respiratory infection. He was there for two weeks, and then airlifted to [facility] in [place], where he remained for 90 days, including a long stay on a respirator. He was released from [facility] on May 17, 2021 and sent to a rehab facility in [place] until October 06, 2021, and then finally released home. Pt had home health PT for a few weeks, but they stopped coming after pt developed pressure ulcers. Pt is now healed, and feeling improved enough to begin outpatient therapy. Pt is dramatically deconditioned, limited to w/c mobility, and only uses a FWW and Mod Ax1 to stand for 1-2 minutes at a time. Pt complains of ongoing neuropathy and foot drop, both of which began during his hospital stay. is primary caregiver, but they do have an additional caregiver come for four hours a day. They have purchased a recumbent elliptical for exercise, and pt has improved from using it on level 0 for 5 minutes to level 8 for an hour or more. Pt notes that he has been trying to get a prescription for AFOs to help with his drop foot, as he is unable to take a step due to 0/5 ankle weakness. Able to slowly mobilize himself in his manual wheelchair, but unable to propell himself with his LEs. Treatment Goals Patient/Caregiver Goals Pt wants to be able to get up and take a few steps. Personal Factors Other Personal Factors That May Effect Obesity, limited R shoulder Therapy/Recovery mobility, severe ankle weakness/drop foot, Hx PE, lymphedema, neuropathy PT-OP-C Subjective Start: 12/14/21 17:57 Freq: Status: Active Protocol: Document 04/12/22 14:30 DCW (Rec: 04/12/22 15:14 DCW [id number]) OP-PT Subjective Patient Comments Patient Comments Pt's reports that she has been trying to get pt to walk a little bit more each day. PT-OP-G Mobility & Gait Start: 12/14/21 17:57 Freq: Status: Active Protocol: Document 03/17/22 14:30 DCW (Rec: 03/17/22 15:00 DCW [id number]) OP Mobility Evaluation Transfers Sit to Stand Pt able to sit->stand from w/c Min Ax1 using UE assist on // bars. Pt requires Mod Ax2 at home with and caregiver holding FWW stable so he can pull himself up. Wheelchair Management Type of Wheelchair Manual Assessment Details Pt showing increased use of UEs while propelling wheelchair, although still very slow speed. OP Gait Assessment Comments Gait Comments FWW SBA 40', decreased foot clearance, decreased spenser, heavily relies on UE support. Struggles with turning FWW, requires very wide turning radius. PT-OP-K Range of Motion Start: 12/14/21 17:57 Freq: Status: Active Protocol: Document 03/17/22 14:30 DCW (Rec: 03/17/22 15:00 DCW [id number]) Shoulder Goniometric Range of Motion Shoulder Right Active Shoulder ROM WFL No Testing Position Sitting Flexion 78 Abduction 86 Internal Rotation Behind Back (text) R PSIS PT-OP-M Strength Start: 12/14/21 17:57 Freq: Status: Active Protocol: Document 03/17/22 14:30 DCW (Rec: 03/17/22 15:00 DCW [id number]) Hip Strength Hip Manual Muscle Testing Right Flexion (L2) 3- Fair- Abduction 4- Good- Adduction 4- Good- Left Flexion (L2) 2 Poor Abduction 4- Good- Adduction 4- Good- Knee Strength Knee Manual Muscle Testing Right Flexion (S2) 2+ Poor+ Extension (L3) 4+ Good+ Left Flexion (S2) 3- Fair- Extension (L3) 4+ Good+ Comments Pain with resisted flexion Ankle/Foot Strength Ankle and Foot Manual Muscle Testing Right Dorsiflexion (L4) 0 Zero Plantarflexion (S1) 2+ Poor+ Inversion 0 Zero Eversion (S1) 0 Zero Left Dorsiflexion (L4) 0 Zero Plantarflexion (S1) 1 Trace Inversion 0 Zero Eversion (S1) 0 Zero PT-OP-Q Treatments Start: 12/14/21 17:57 Freq: Status: Active Protocol: Document 04/12/22 14:30 DCW (Rec: 04/12/22 15:14 DCW [id number]) Therapeutic Exercises Sitting Exercises IR/ER Sitting Exercise Name IR/ER in 90/90 Side right Resistance 2.2# Yellow ball Balloon Volley Sitting Exercise Name Balloon volley Side bilateral Resistance 4# Standing Exercises Hip Extension Standing Exercise Name Hip Extension Side bilateral Equipment Used // bars Therapeutic Activity Therapeutic Activity Sit<->stand Name StS x2 Comments FWW held in place by /PT, VCs for hand placement and sequencing, able to use one UE to help push, then chair push -ups x10 Gait Training Gait Activity FWW Description Fwd amb /c FWW Device Used Bariactric FWW Level of Assistance CGA Comments 90' /c FWW, working on decreasing turn radius Stance Description Double leg stance /s UE support Device Used // bars with FWW PT-OP-T Assessment and Plan Start: 12/14/21 17:57 Freq: Status: Active Protocol: Document 04/12/22 14:30 DCW (Rec: 04/12/22 15:14 DCW [id number]) Physical Therapy Assessment Impairments Impairments Activity Tolerance,Balance, Edema,Functional Activities, Functional Mobility,Gait,ROM, Sensation,Strength,Tone, Transfers Goals Three Impairment Pt unable to propel himself well in w/c due to severely limited R UE ROM Halfway Goal (LTG) Pt to improve right shoulder ROM to 100? flexion and abduction and increase IR to reach back to at least his left SI area in order to better propel his wheelchair independently. LTG Duration 06/15/22 Two Impairment Pt unable to step inside // bars due to severe ankle weakness and neuropath Halfway Goal (LTG) Pt to ambulate 50' using least restrictive AD CGA while wearing appropriate AFOs to limit impact of foot drop to allow him to be more functionally mobile at home, including getting to the bathroom. LTG Duration 06/15/22 One Impairment Pt does not have an appropriate home exercise program Short Term Goal (STG) Pt to be independent and compliant with an appropriate HEP STG Duration 05/18/22 Progress Towards Goals Progress Towards Goals Slow Progress due to Medical Issues Assessment Summary Assessment Pt fatigued by end of session, but happy overall with performance with new exercises . Physical Therapy Plan Frequency and Duration Frequency of Treatment 2x/Week Plan of Care Start Date 03/17/22 Plan of Care End Date 06/15/22 Therapeutic Interventions Therapeutic Interventions Aquatic Therapy,Balance Training,Coordination Training ,Gait Training,Home Exercise Program,Lymphedema Management, Manual Therapy,Neuromuscular Re-education,Orthotic/ Prosthetic Management,Patient/ Caregiver Education,Self-Care/ Home Management,Soft Tissue Mobilization,Therapeutic Activities,Therapeutic Exercises,Wheelchair Management Modalities Cold Pack/Ice Massage,Electric Stimulation,Hot Packs, Ultrasound Next Visit Focus/Plan Next Note Type Treatment Note Next Visit Plan Work toward vehicle transfers, Amb FWW outside of // bars, activity tolerance, sit<-> stand, LE strengthening, UE ROM.
--- NOTE | 2022-04-15 15:14 | PT.OTN ---
Current Diagnoses Muscle weakness (generalized) (04/15/22) Unspecified abnormalities of gait and mobility (04/15/22) Other symptoms and signs involving the musculoskeletal system (04/15/22) Other fatigue (04/15/22) Other reduced mobility (04/15/22) Physical Therapy Treatment Note PT-OP-A Visit Information Start: 12/14/21 17:57 Freq: Status: Active Protocol: Document 04/15/22 14:30 DCW (Rec: 04/15/22 15:14 DCW [id number]) Out-Patient Physical Therapy Visit Information Visit Information Visit Type Treatment Note Visit Start Time 14:30 Visit Stop Time 15:15 Total Visit Minutes 45 Visit Number 30 Number of COMMUNICATIONS DEPARTMENT CHAIRPERSON Visits 0 Evaluation Information Evaluation Date 12/14/21 PT-OP-B Current Condition Start: 12/14/21 17:57 Freq: Status: Active Protocol: Document 12/14/21 16:00 DCW (Rec: 12/14/21 18:10 DCW [id number]) Current Condition History of Current Condition Onset Date February, Current Complaints Physical debility, deconditioning, limited mobility, weakness History of Current Condition Pt is a 71 year old male presenting with a very complicated medical history. Pt was vacationing in [place] in February,, when he was hospitalized with a bacterial respiratory infection. He was there for two weeks, and then airlifted to [facility] in [place], where he remained for 90 days, including a long stay on a respirator. He was released from [facility] on May 17, 2021 and sent to a rehab facility in [place] until October 06, 2021, and then finally released home. Pt had home health PT for a few weeks, but they stopped coming after pt developed pressure ulcers. Pt is now healed, and feeling improved enough to begin outpatient therapy. Pt is dramatically deconditioned, limited to w/c mobility, and only uses a FWW and Mod Ax1 to stand for 1-2 minutes at a time. Pt complains of ongoing neuropathy and foot drop, both of which began during his hospital stay. is primary caregiver, but they do have an additional caregiver come for four hours a day. They have purchased a recumbent elliptical for exercise, and pt has improved from using it on level 0 for 5 minutes to level 8 for an hour or more. Pt notes that he has been trying to get a prescription for AFOs to help with his drop foot, as he is unable to take a step due to 0/5 ankle weakness. Able to slowly mobilize himself in his manual wheelchair, but unable to propell himself with his LEs. Treatment Goals Patient/Caregiver Goals Pt wants to be able to get up and take a few steps. Personal Factors Other Personal Factors That May Effect Obesity, limited R shoulder Therapy/Recovery mobility, severe ankle weakness/drop foot, Hx PE, lymphedema, neuropathy PT-OP-C Subjective Start: 12/14/21 17:57 Freq: Status: Active Protocol: Document 04/15/22 14:30 DCW (Rec: 04/15/22 15:14 DCW [id number]) OP-PT Subjective Patient Comments Patient Comments Pt reports that he is feeling okay. Did a lot of sit<->stand and short walks with FWW today. PT-OP-G Mobility & Gait Start: 12/14/21 17:57 Freq: Status: Active Protocol: Document 03/17/22 14:30 DCW (Rec: 03/17/22 15:00 DCW [id number]) OP Mobility Evaluation Transfers Sit to Stand Pt able to sit->stand from w/c Min Ax1 using UE assist on // bars. Pt requires Mod Ax2 at home with and caregiver holding FWW stable so he can pull himself up. Wheelchair Management Type of Wheelchair Manual Assessment Details Pt showing increased use of UEs while propelling wheelchair, although still very slow speed. OP Gait Assessment Comments Gait Comments FWW SBA 40', decreased foot clearance, decreased spenser, heavily relies on UE support. Struggles with turning FWW, requires very wide turning radius. PT-OP-K Range of Motion Start: 12/14/21 17:57 Freq: Status: Active Protocol: Document 03/17/22 14:30 DCW (Rec: 03/17/22 15:00 DCW [id number]) Shoulder Goniometric Range of Motion Shoulder Right Active Shoulder ROM WFL No Testing Position Sitting Flexion 78 Abduction 86 Internal Rotation Behind Back (text) R PSIS PT-OP-M Strength Start: 12/14/21 17:57 Freq: Status: Active Protocol: Document 03/17/22 14:30 DCW (Rec: 03/17/22 15:00 DCW [id number]) Hip Strength Hip Manual Muscle Testing Right Flexion (L2) 3- Fair- Abduction 4- Good- Adduction 4- Good- Left Flexion (L2) 2 Poor Abduction 4- Good- Adduction 4- Good- Knee Strength Knee Manual Muscle Testing Right Flexion (S2) 2+ Poor+ Extension (L3) 4+ Good+ Left Flexion (S2) 3- Fair- Extension (L3) 4+ Good+ Comments Pain with resisted flexion Ankle/Foot Strength Ankle and Foot Manual Muscle Testing Right Dorsiflexion (L4) 0 Zero Plantarflexion (S1) 2+ Poor+ Inversion 0 Zero Eversion (S1) 0 Zero Left Dorsiflexion (L4) 0 Zero Plantarflexion (S1) 1 Trace Inversion 0 Zero Eversion (S1) 0 Zero PT-OP-Q Treatments Start: 12/14/21 17:57 Freq: Status: Active Protocol: Document 04/15/22 14:30 DCW (Rec: 04/15/22 15:14 DCW [id number]) Therapeutic Exercises Sitting Exercises Balloon Volley Sitting Exercise Name Balloon volley Side bilateral Resistance 2# Therapeutic Activity Therapeutic Activity Sit<->stand Name StS x2 Comments FWW held in place by /PT, VCs for hand placement and sequencing, able to use one UE to help push, then chair push -ups 2x10, assisted for second set Gait Training Gait Activity FWW Description Fwd amb /c FWW Device Used Bariactric FWW Level of Assistance CGA Comments 75'x1, 50'x1 /c FWW, working on decreasing turn radius Stance Description Double leg stance /s UE support Device Used // bars with FWW PT-OP-T Assessment and Plan Start: 12/14/21 17:57 Freq: Status: Active Protocol: Document 04/15/22 14:30 DCW (Rec: 04/15/22 15:14 DCW [id number]) Physical Therapy Assessment Impairments Impairments Activity Tolerance,Balance, Edema,Functional Activities, Functional Mobility,Gait,ROM, Sensation,Strength,Tone, Transfers Goals Three Impairment Pt unable to propel himself well in w/c due to severely limited R UE ROM Mcfp Goal (LTG) Pt to improve right shoulder ROM to 100? flexion and abduction and increase IR to reach back to at least his left SI area in order to better propel his wheelchair independently. LTG Duration 06/15/22 Two Impairment Pt unable to step inside // bars due to severe ankle weakness and neuropath Mcfp Goal (LTG) Pt to ambulate 50' using least restrictive AD CGA while wearing appropriate AFOs to limit impact of foot drop to allow him to be more functionally mobile at home, including getting to the bathroom. LTG Duration 06/15/22 One Impairment Pt does not have an appropriate home exercise program Short Term Goal (STG) Pt to be independent and compliant with an appropriate HEP STG Duration 05/18/22 Progress Towards Goals Progress Towards Goals Slow Progress due to Medical Issues Assessment Summary Assessment Pt showing progress, increased total distance ambulated, although it was broken up into two smaller sessions. Improving R UE strength as well. Physical Therapy Plan Frequency and Duration Frequency of Treatment 2x/Week Plan of Care Start Date 03/17/22 Plan of Care End Date 06/15/22 Therapeutic Interventions Therapeutic Interventions Aquatic Therapy,Balance Training,Coordination Training ,Gait Training,Home Exercise Program,Lymphedema Management, Manual Therapy,Neuromuscular Re-education,Orthotic/ Prosthetic Management,Patient/ Caregiver Education,Self-Care/ Home Management,Soft Tissue Mobilization,Therapeutic Activities,Therapeutic Exercises,Wheelchair Management Modalities Cold Pack/Ice Massage,Electric Stimulation,Hot Packs, Ultrasound Next Visit Focus/Plan Next Note Type Treatment Note Next Visit Plan Work toward vehicle transfers, Amb FWW outside of // bars, activity tolerance, sit<-> stand, LE strengthening, UE ROM.
--- NOTE | 2022-04-19 15:14 | PT.OTN ---
Current Diagnoses Muscle weakness (generalized) (04/19/22) Unspecified abnormalities of gait and mobility (04/19/22) Other symptoms and signs involving the musculoskeletal system (04/19/22) Other fatigue (04/19/22) Other reduced mobility (04/19/22) Physical Therapy Treatment Note PT-OP-A Visit Information Start: 12/14/21 17:57 Freq: Status: Active Protocol: Document 04/19/22 14:30 DCW (Rec: 04/19/22 15:14 DCW [id number]) Out-Patient Physical Therapy Visit Information Visit Information Visit Type Treatment Note Visit Start Time 14:30 Visit Stop Time 15:05 Total Visit Minutes 35 Visit Number 31 Number of PLYWOOD PATCHER Visits 0 Evaluation Information Evaluation Date 12/14/21 PT-OP-B Current Condition Start: 12/14/21 17:57 Freq: Status: Active Protocol: Document 12/14/21 16:00 DCW (Rec: 12/14/21 18:10 DCW [id number]) Current Condition History of Current Condition Onset Date February, Current Complaints Physical debility, deconditioning, limited mobility, weakness History of Current Condition Pt is a 71 year old male presenting with a very complicated medical history. Pt was vacationing in [place] in February,, when he was hospitalized with a bacterial respiratory infection. He was there for two weeks, and then airlifted to [facility] in [place], where he remained for 90 days, including a long stay on a respirator. He was released from [facility] on May 17, 2021 and sent to a rehab facility in [place] until October 06, 2021, and then finally released home. Pt had home health PT for a few weeks, but they stopped coming after pt developed pressure ulcers. Pt is now healed, and feeling improved enough to begin outpatient therapy. Pt is dramatically deconditioned, limited to w/c mobility, and only uses a FWW and Mod Ax1 to stand for 1-2 minutes at a time. Pt complains of ongoing neuropathy and foot drop, both of which began during his hospital stay. is primary caregiver, but they do have an additional caregiver come for four hours a day. They have purchased a recumbent elliptical for exercise, and pt has improved from using it on level 0 for 5 minutes to level 8 for an hour or more. Pt notes that he has been trying to get a prescription for AFOs to help with his drop foot, as he is unable to take a step due to 0/5 ankle weakness. Able to slowly mobilize himself in his manual wheelchair, but unable to propell himself with his LEs. Treatment Goals Patient/Caregiver Goals Pt wants to be able to get up and take a few steps. Personal Factors Other Personal Factors That May Effect Obesity, limited R shoulder Therapy/Recovery mobility, severe ankle weakness/drop foot, Hx PE, lymphedema, neuropathy PT-OP-C Subjective Start: 12/14/21 17:57 Freq: Status: Active Protocol: Document 04/19/22 14:30 DCW (Rec: 04/19/22 15:14 DCW [id number]) OP-PT Subjective Patient Comments Patient Comments Pt wearing a soft brace today bilateral ankles that they purchased OTC, unable to get AFO over toe today, R great toe curled up, could not fit in AFO. PT-OP-G Mobility & Gait Start: 12/14/21 17:57 Freq: Status: Active Protocol: Document 03/17/22 14:30 DCW (Rec: 03/17/22 15:00 DCW [id number]) OP Mobility Evaluation Transfers Sit to Stand Pt able to sit->stand from w/c Min Ax1 using UE assist on // bars. Pt requires Mod Ax2 at home with and caregiver holding FWW stable so he can pull himself up. Wheelchair Management Type of Wheelchair Manual Assessment Details Pt showing increased use of UEs while propelling wheelchair, although still very slow speed. OP Gait Assessment Comments Gait Comments FWW SBA 40', decreased foot clearance, decreased spenser, heavily relies on UE support. Struggles with turning FWW, requires very wide turning radius. PT-OP-K Range of Motion Start: 12/14/21 17:57 Freq: Status: Active Protocol: Document 03/17/22 14:30 DCW (Rec: 03/17/22 15:00 DCW [id number]) Shoulder Goniometric Range of Motion Shoulder Right Active Shoulder ROM WFL No Testing Position Sitting Flexion 78 Abduction 86 Internal Rotation Behind Back (text) R PSIS PT-OP-M Strength Start: 12/14/21 17:57 Freq: Status: Active Protocol: Document 03/17/22 14:30 DCW (Rec: 03/17/22 15:00 DCW [id number]) Hip Strength Hip Manual Muscle Testing Right Flexion (L2) 3- Fair- Abduction 4- Good- Adduction 4- Good- Left Flexion (L2) 2 Poor Abduction 4- Good- Adduction 4- Good- Knee Strength Knee Manual Muscle Testing Right Flexion (S2) 2+ Poor+ Extension (L3) 4+ Good+ Left Flexion (S2) 3- Fair- Extension (L3) 4+ Good+ Comments Pain with resisted flexion Ankle/Foot Strength Ankle and Foot Manual Muscle Testing Right Dorsiflexion (L4) 0 Zero Plantarflexion (S1) 2+ Poor+ Inversion 0 Zero Eversion (S1) 0 Zero Left Dorsiflexion (L4) 0 Zero Plantarflexion (S1) 1 Trace Inversion 0 Zero Eversion (S1) 0 Zero PT-OP-Q Treatments Start: 12/14/21 17:57 Freq: Status: Active Protocol: Document 04/19/22 14:30 DCW (Rec: 04/19/22 15:14 DCW [id number]) Therapeutic Exercises Sitting Exercises IR/ER Sitting Exercise Name IR/ER in 90/90 Side right Resistance 2.2# Yellow ball->1# DB Balloon Volley Sitting Exercise Name Balloon volley Side bilateral Resistance 4# Chest Press Sitting Exercise Name UE Chest Press /c PVC Resistance 7# Reps/Minutes x10 UE PNF Sitting Exercise Name PNF B UE Lift Resistance 5.5# ball Reps/Minutes x8 Standing Exercises Hamstring Curls Standing Exercise Name HS Curls Side bilateral Equipment Used // bars Hip Extension Standing Exercise Name Hip Extension Side bilateral Equipment Used // bars Gait Training Gait Activity FWW Description Fwd amb /c FWW Device Used Bariactric FWW Level of Assistance CGA Comments 35', increased difficulty with toe clearance due to OTC AFO. PT-OP-T Assessment and Plan Start: 12/14/21 17:57 Freq: Status: Active Protocol: Document 04/19/22 14:30 DCW (Rec: 04/19/22 15:14 DCW [id number]) Physical Therapy Assessment Impairments Impairments Activity Tolerance,Balance, Edema,Functional Activities, Functional Mobility,Gait,ROM, Sensation,Strength,Tone, Transfers Goals Three Impairment Pt unable to propel himself well in w/c due to severely limited R UE ROM Long-Term Goal (LTG) Pt to improve right shoulder ROM to 100? flexion and abduction and increase IR to reach back to at least his left SI area in order to better propel his wheelchair independently. LTG Duration 06/15/22 Two Impairment Pt unable to step inside // bars due to severe ankle weakness and neuropath Retail Sales Specialist Goal (LTG) Pt to ambulate 50' using least restrictive AD CGA while wearing appropriate AFOs to limit impact of foot drop to allow him to be more functionally mobile at home, including getting to the bathroom. LTG Duration 06/15/22 One Impairment Pt does not have an appropriate home exercise program Short Term Goal (STG) Pt to be independent and compliant with an appropriate HEP STG Duration 05/18/22 Progress Towards Goals Progress Towards Goals Slow Progress due to Medical Issues Assessment Summary Assessment Pt very fatigued today, requested early finish due to increased digestive distress after ongoing attempts to sit< ->stand. Physical Therapy Plan Frequency and Duration Frequency of Treatment 2x/Week Plan of Care Start Date 03/17/22 Plan of Care End Date 06/15/22 Therapeutic Interventions Therapeutic Interventions Aquatic Therapy,Balance Training,Coordination Training ,Gait Training,Home Exercise Program,Lymphedema Management, Manual Therapy,Neuromuscular Re-education,Orthotic/ Prosthetic Management,Patient/ Caregiver Education,Self-Care/ Home Management,Soft Tissue Mobilization,Therapeutic Activities,Therapeutic Exercises,Wheelchair Management Modalities Cold Pack/Ice Massage,Electric Stimulation,Hot Packs, Ultrasound Next Visit Focus/Plan Next Note Type Treatment Note Next Visit Plan Work toward vehicle transfers, Amb FWW outside of // bars, activity tolerance, sit<-> stand, LE strengthening, UE ROM.
--- NOTE | 2022-04-22 15:15 | PT.OTN ---
Current Diagnoses Muscle weakness (generalized) (04/22/22) Unspecified abnormalities of gait and mobility (04/22/22) Other symptoms and signs involving the musculoskeletal system (04/22/22) Other fatigue (04/22/22) Other reduced mobility (04/22/22) Physical Therapy Treatment Note PT-OP-A Visit Information Start: 12/14/21 17:57 Freq: Status: Active Protocol: Document 04/22/22 14:30 DCW (Rec: 04/22/22 15:15 DCW [id number]) Out-Patient Physical Therapy Visit Information Visit Information Visit Type Treatment Note Visit Start Time 14:30 Visit Stop Time 15:15 Total Visit Minutes 45 Visit Number 32 Number of SAMPLE HAND Visits 0 Evaluation Information Evaluation Date 12/14/21 PT-OP-B Current Condition Start: 12/14/21 17:57 Freq: Status: Active Protocol: Document 12/14/21 16:00 DCW (Rec: 12/14/21 18:10 DCW [id number]) Current Condition History of Current Condition Onset Date February, Current Complaints Physical debility, deconditioning, limited mobility, weakness History of Current Condition Pt is a 71 year old male presenting with a very complicated medical history. Pt was vacationing in [place] in February,, when he was hospitalized with a bacterial respiratory infection. He was there for two weeks, and then airlifted to [facility] in [place], where he remained for 90 days, including a long stay on a respirator. He was released from [facility] on May 17, 2021 and sent to a rehab facility in [place] until October 06, 2021, and then finally released home. Pt had home health PT for a few weeks, but they stopped coming after pt developed pressure ulcers. Pt is now healed, and feeling improved enough to begin outpatient therapy. Pt is dramatically deconditioned, limited to w/c mobility, and only uses a FWW and Mod Ax1 to stand for 1-2 minutes at a time. Pt complains of ongoing neuropathy and foot drop, both of which began during his hospital stay. is primary caregiver, but they do have an additional caregiver come for four hours a day. They have purchased a recumbent elliptical for exercise, and pt has improved from using it on level 0 for 5 minutes to level 8 for an hour or more. Pt notes that he has been trying to get a prescription for AFOs to help with his drop foot, as he is unable to take a step due to 0/5 ankle weakness. Able to slowly mobilize himself in his manual wheelchair, but unable to propell himself with his LEs. Treatment Goals Patient/Caregiver Goals Pt wants to be able to get up and take a few steps. Personal Factors Other Personal Factors That May Effect Obesity, limited R shoulder Therapy/Recovery mobility, severe ankle weakness/drop foot, Hx PE, lymphedema, neuropathy PT-OP-C Subjective Start: 12/14/21 17:57 Freq: Status: Active Protocol: Document 04/22/22 14:30 DCW (Rec: 04/22/22 15:15 DCW [id number]) OP-PT Subjective Patient Comments Patient Comments Pt reports he performed sit<-> stand about 8-10 times this morning, due to it being a shower day. PT-OP-G Mobility & Gait Start: 12/14/21 17:57 Freq: Status: Active Protocol: Document 03/17/22 14:30 DCW (Rec: 03/17/22 15:00 DCW [id number]) OP Mobility Evaluation Transfers Sit to Stand Pt able to sit->stand from w/c Min Ax1 using UE assist on // bars. Pt requires Mod Ax2 at home with and caregiver holding FWW stable so he can pull himself up. Wheelchair Management Type of Wheelchair Manual Assessment Details Pt showing increased use of UEs while propelling wheelchair, although still very slow speed. OP Gait Assessment Comments Gait Comments FWW SBA 40', decreased foot clearance, decreased spenser, heavily relies on UE support. Struggles with turning FWW, requires very wide turning radius. PT-OP-K Range of Motion Start: 12/14/21 17:57 Freq: Status: Active Protocol: Document 03/17/22 14:30 DCW (Rec: 03/17/22 15:00 DCW [id number]) Shoulder Goniometric Range of Motion Shoulder Right Active Shoulder ROM WFL No Testing Position Sitting Flexion 78 Abduction 86 Internal Rotation Behind Back (text) R PSIS PT-OP-M Strength Start: 12/14/21 17:57 Freq: Status: Active Protocol: Document 03/17/22 14:30 DCW (Rec: 03/17/22 15:00 DCW [id number]) Hip Strength Hip Manual Muscle Testing Right Flexion (L2) 3- Fair- Abduction 4- Good- Adduction 4- Good- Left Flexion (L2) 2 Poor Abduction 4- Good- Adduction 4- Good- Knee Strength Knee Manual Muscle Testing Right Flexion (S2) 2+ Poor+ Extension (L3) 4+ Good+ Left Flexion (S2) 3- Fair- Extension (L3) 4+ Good+ Comments Pain with resisted flexion Ankle/Foot Strength Ankle and Foot Manual Muscle Testing Right Dorsiflexion (L4) 0 Zero Plantarflexion (S1) 2+ Poor+ Inversion 0 Zero Eversion (S1) 0 Zero Left Dorsiflexion (L4) 0 Zero Plantarflexion (S1) 1 Trace Inversion 0 Zero Eversion (S1) 0 Zero PT-OP-Q Treatments Start: 12/14/21 17:57 Freq: Status: Active Protocol: Document 04/22/22 14:30 DCW (Rec: 04/22/22 15:15 DCW [id number]) Therapeutic Exercises Sitting Exercises Chest Press Sitting Exercise Name UE Chest Press /c PVC Resistance 10# Reps/Minutes x10 UE PNF Sitting Exercise Name PNF B UE Lift Resistance 6.6# ball Reps/Minutes x8 Standing Exercises Hip Abduction Standing Exercise Name Hip Abduction Side bilateral Equipment Used // bars Hamstring Curls Standing Exercise Name HS Curls Side bilateral Equipment Used // bars Hip Extension Standing Exercise Name Hip Extension Side bilateral Equipment Used // bars Therapeutic Activity Therapeutic Activity Sit<->stand Name StS x3 Comments FWW held in place by /PT, VCs for hand placement and sequencing, able to use one UE to help push, then chair push -ups x10 Gait Training Gait Activity FWW Description Fwd amb /c FWW Device Used Bariactric FWW Level of Assistance CGA Comments 103'x1 /c FWW Stance Description Double leg stance /s UE support Device Used // bars with FWW PT-OP-T Assessment and Plan Start: 12/14/21 17:57 Freq: Status: Active Protocol: Document 04/22/22 14:30 DCW (Rec: 04/22/22 15:15 DCW [id number]) Physical Therapy Assessment Impairments Impairments Activity Tolerance,Balance, Edema,Functional Activities, Functional Mobility,Gait,ROM, Sensation,Strength,Tone, Transfers Goals Three Impairment Pt unable to propel himself well in w/c due to severely limited R UE ROM Blade Balancer Goal (LTG) Pt to improve right shoulder ROM to 100? flexion and abduction and increase IR to reach back to at least his left SI area in order to better propel his wheelchair independently. LTG Duration 06/15/22 Two Impairment Pt unable to step inside // bars due to severe ankle weakness and neuropath Blade Balancer Goal (LTG) Pt to ambulate 50' using least restrictive AD CGA while wearing appropriate AFOs to limit impact of foot drop to allow him to be more functionally mobile at home, including getting to the bathroom. LTG Duration 06/15/22 One Impairment Pt does not have an appropriate home exercise program Short Term Goal (STG) Pt to be independent and compliant with an appropriate HEP STG Duration 05/18/22 Progress Towards Goals Progress Towards Goals Slow Progress due to Medical Issues Assessment Summary Assessment Pt performing much better today, no need for extended rest breaks, able to fully participate in all activities, increased weight with UE exercises. Improving shoulder ROM. Physical Therapy Plan Frequency and Duration Frequency of Treatment 2x/Week Plan of Care Start Date 03/17/22 Plan of Care End Date 06/15/22 Therapeutic Interventions Therapeutic Interventions Aquatic Therapy,Balance Training,Coordination Training ,Gait Training,Home Exercise Program,Lymphedema Management, Manual Therapy,Neuromuscular Re-education,Orthotic/ Prosthetic Management,Patient/ Caregiver Education,Self-Care/ Home Management,Soft Tissue Mobilization,Therapeutic Activities,Therapeutic Exercises,Wheelchair Management Modalities Cold Pack/Ice Massage,Electric Stimulation,Hot Packs, Ultrasound Next Visit Focus/Plan Next Note Type Treatment Note Next Visit Plan Work toward vehicle transfers, Amb FWW outside of // bars, activity tolerance, sit<-> stand, LE strengthening, UE ROM.
--- NOTE | 2022-04-26 15:15 | PT.OTN ---
Current Diagnoses Muscle weakness (generalized) (04/26/22) Unspecified abnormalities of gait and mobility (04/26/22) Other symptoms and signs involving the musculoskeletal system (04/26/22) Other fatigue (04/26/22) Other reduced mobility (04/26/22) Physical Therapy Treatment Note PT-OP-A Visit Information Start: 12/14/21 17:57 Freq: Status: Active Protocol: Document 04/26/22 14:30 DCW (Rec: 04/26/22 15:15 DCW [id number]) Out-Patient Physical Therapy Visit Information Visit Information Visit Type Treatment Note Visit Start Time 14:30 Visit Stop Time 15:15 Total Visit Minutes 45 Visit Number 33 Number of SOFTWARE INSTALLER Visits 0 Evaluation Information Evaluation Date 12/14/21 PT-OP-B Current Condition Start: 12/14/21 17:57 Freq: Status: Active Protocol: Document 12/14/21 16:00 DCW (Rec: 12/14/21 18:10 DCW [id number]) Current Condition History of Current Condition Onset Date February, Current Complaints Physical debility, deconditioning, limited mobility, weakness History of Current Condition Pt is a 71 year old male presenting with a very complicated medical history. Pt was vacationing in [place] in February,, when he was hospitalized with a bacterial respiratory infection. He was there for two weeks, and then airlifted to [facility] in [place], where he remained for 90 days, including a long stay on a respirator. He was released from [facility] on May 17, 2021 and sent to a rehab facility in [place] until October 06, 2021, and then finally released home. Pt had home health PT for a few weeks, but they stopped coming after pt developed pressure ulcers. Pt is now healed, and feeling improved enough to begin outpatient therapy. Pt is dramatically deconditioned, limited to w/c mobility, and only uses a FWW and Mod Ax1 to stand for 1-2 minutes at a time. Pt complains of ongoing neuropathy and foot drop, both of which began during his hospital stay. is primary caregiver, but they do have an additional caregiver come for four hours a day. They have purchased a recumbent elliptical for exercise, and pt has improved from using it on level 0 for 5 minutes to level 8 for an hour or more. Pt notes that he has been trying to get a prescription for AFOs to help with his drop foot, as he is unable to take a step due to 0/5 ankle weakness. Able to slowly mobilize himself in his manual wheelchair, but unable to propell himself with his LEs. Treatment Goals Patient/Caregiver Goals Pt wants to be able to get up and take a few steps. Personal Factors Other Personal Factors That May Effect Obesity, limited R shoulder Therapy/Recovery mobility, severe ankle weakness/drop foot, Hx PE, lymphedema, neuropathy PT-OP-C Subjective Start: 12/14/21 17:57 Freq: Status: Active Protocol: Document 04/26/22 14:30 DCW (Rec: 04/26/22 15:15 DCW [id number]) OP-PT Subjective Patient Comments Patient Comments Pt feeling pretty good overall today. PT-OP-G Mobility & Gait Start: 12/14/21 17:57 Freq: Status: Active Protocol: Document 03/17/22 14:30 DCW (Rec: 03/17/22 15:00 DCW [id number]) OP Mobility Evaluation Transfers Sit to Stand Pt able to sit->stand from w/c Min Ax1 using UE assist on // bars. Pt requires Mod Ax2 at home with and caregiver holding FWW stable so he can pull himself up. Wheelchair Management Type of Wheelchair Manual Assessment Details Pt showing increased use of UEs while propelling wheelchair, although still very slow speed. OP Gait Assessment Comments Gait Comments FWW SBA 40', decreased foot clearance, decreased spenser, heavily relies on UE support. Struggles with turning FWW, requires very wide turning radius. PT-OP-K Range of Motion Start: 12/14/21 17:57 Freq: Status: Active Protocol: Document 03/17/22 14:30 DCW (Rec: 03/17/22 15:00 DCW [id number]) Shoulder Goniometric Range of Motion Shoulder Right Active Shoulder ROM WFL No Testing Position Sitting Flexion 78 Abduction 86 Internal Rotation Behind Back (text) R PSIS PT-OP-M Strength Start: 12/14/21 17:57 Freq: Status: Active Protocol: Document 03/17/22 14:30 DCW (Rec: 03/17/22 15:00 DCW [id number]) Hip Strength Hip Manual Muscle Testing Right Flexion (L2) 3- Fair- Abduction 4- Good- Adduction 4- Good- Left Flexion (L2) 2 Poor Abduction 4- Good- Adduction 4- Good- Knee Strength Knee Manual Muscle Testing Right Flexion (S2) 2+ Poor+ Extension (L3) 4+ Good+ Left Flexion (S2) 3- Fair- Extension (L3) 4+ Good+ Comments Pain with resisted flexion Ankle/Foot Strength Ankle and Foot Manual Muscle Testing Right Dorsiflexion (L4) 0 Zero Plantarflexion (S1) 2+ Poor+ Inversion 0 Zero Eversion (S1) 0 Zero Left Dorsiflexion (L4) 0 Zero Plantarflexion (S1) 1 Trace Inversion 0 Zero Eversion (S1) 0 Zero PT-OP-Q Treatments Start: 12/14/21 17:57 Freq: Status: Active Protocol: Document 04/26/22 14:30 DCW (Rec: 04/26/22 15:15 DCW [id number]) Therapeutic Exercises Sitting Exercises Body Blade Sitting Exercise Name Body blade - Flexion Side right Resistance Yellow body blade Chest Press Sitting Exercise Name UE Chest Press /c PVC Resistance 10# Reps/Minutes x10 UE PNF Sitting Exercise Name PNF B UE Lift Resistance 6.6# ball Reps/Minutes x8 Standing Exercises Hip Abduction Standing Exercise Name Hip Abduction Side bilateral Equipment Used // bars Hamstring Curls Standing Exercise Name HS Curls Side bilateral Equipment Used // bars Hip Extension Standing Exercise Name Hip Extension Side bilateral Equipment Used // bars Gait Training Gait Activity FWW Description Fwd amb /c FWW Device Used Bariactric FWW Level of Assistance CGA Comments 121'x1 /c FWW Stance Description Double leg stance /s UE support Device Used // bars with FWW PT-OP-T Assessment and Plan Start: 12/14/21 17:57 Freq: Status: Active Protocol: Document 04/26/22 14:30 DCW (Rec: 04/26/22 15:15 DCW [id number]) Physical Therapy Assessment Impairments Impairments Activity Tolerance,Balance, Edema,Functional Activities, Functional Mobility,Gait,ROM, Sensation,Strength,Tone, Transfers Goals Three Impairment Pt unable to propel himself well in w/c due to severely limited R UE ROM Assisted Goal (LTG) Pt to improve right shoulder ROM to 100? flexion and abduction and increase IR to reach back to at least his left SI area in order to better propel his wheelchair independently. LTG Duration 06/15/22 Two Impairment Pt unable to step inside // bars due to severe ankle weakness and neuropath Lead Electrical Engineer Goal (LTG) Pt to ambulate 50' using least restrictive AD CGA while wearing appropriate AFOs to limit impact of foot drop to allow him to be more functionally mobile at home, including getting to the bathroom. LTG Duration 06/15/22 One Impairment Pt does not have an appropriate home exercise program Short Term Goal (STG) Pt to be independent and compliant with an appropriate HEP STG Duration 05/18/22 Progress Towards Goals Progress Towards Goals Slow Progress due to Medical Issues Assessment Summary Assessment Pt ambulating with a faster, more stable spenser today, able to complete a longer distance in less time than prior attempts. Physical Therapy Plan Frequency and Duration Frequency of Treatment 2x/Week Plan of Care Start Date 03/17/22 Plan of Care End Date 06/15/22 Therapeutic Interventions Therapeutic Interventions Aquatic Therapy,Balance Training,Coordination Training ,Gait Training,Home Exercise Program,Lymphedema Management, Manual Therapy,Neuromuscular Re-education,Orthotic/ Prosthetic Management,Patient/ Caregiver Education,Self-Care/ Home Management,Soft Tissue Mobilization,Therapeutic Activities,Therapeutic Exercises,Wheelchair Management Modalities Cold Pack/Ice Massage,Electric Stimulation,Hot Packs, Ultrasound Next Visit Focus/Plan Next Note Type Treatment Note Next Visit Plan Work toward vehicle transfers, Amb FWW outside of // bars, activity tolerance, sit<-> stand, LE strengthening, UE ROM.
--- NOTE | 2022-04-29 15:12 | PT.OTN ---
Current Diagnoses Muscle weakness (generalized) (04/29/22) Unspecified abnormalities of gait and mobility (04/29/22) Other symptoms and signs involving the musculoskeletal system (04/29/22) Other fatigue (04/29/22) Other reduced mobility (04/29/22) Physical Therapy Treatment Note PT-OP-A Visit Information Start: 12/14/21 17:57 Freq: Status: Active Protocol: Document 04/29/22 14:30 DCW (Rec: 04/29/22 15:12 DCW [id number]) Out-Patient Physical Therapy Visit Information Visit Information Visit Type Treatment Note Visit Start Time 14:30 Visit Stop Time 15:15 Total Visit Minutes 45 Visit Number 34 Number of NAVY MATERIAL INSPECTOR Visits 0 Evaluation Information Evaluation Date 12/14/21 PT-OP-B Current Condition Start: 12/14/21 17:57 Freq: Status: Active Protocol: Document 12/14/21 16:00 DCW (Rec: 12/14/21 18:10 DCW [id number]) Current Condition History of Current Condition Onset Date February, Current Complaints Physical debility, deconditioning, limited mobility, weakness History of Current Condition Pt is a 71 year old male presenting with a very complicated medical history. Pt was vacationing in [place] in February,, when he was hospitalized with a bacterial respiratory infection. He was there for two weeks, and then airlifted to [facility] in [place], where he remained for 90 days, including a long stay on a respirator. He was released from [facility] on May 17, 2021 and sent to a rehab facility in [place] until October 06, 2021, and then finally released home. Pt had home health PT for a few weeks, but they stopped coming after pt developed pressure ulcers. Pt is now healed, and feeling improved enough to begin outpatient therapy. Pt is dramatically deconditioned, limited to w/c mobility, and only uses a FWW and Mod Ax1 to stand for 1-2 minutes at a time. Pt complains of ongoing neuropathy and foot drop, both of which began during his hospital stay. is primary caregiver, but they do have an additional caregiver come for four hours a day. They have purchased a recumbent elliptical for exercise, and pt has improved from using it on level 0 for 5 minutes to level 8 for an hour or more. Pt notes that he has been trying to get a prescription for AFOs to help with his drop foot, as he is unable to take a step due to 0/5 ankle weakness. Able to slowly mobilize himself in his manual wheelchair, but unable to propell himself with his LEs. Treatment Goals Patient/Caregiver Goals Pt wants to be able to get up and take a few steps. Personal Factors Other Personal Factors That May Effect Obesity, limited R shoulder Therapy/Recovery mobility, severe ankle weakness/drop foot, Hx PE, lymphedema, neuropathy PT-OP-C Subjective Start: 12/14/21 17:57 Freq: Status: Active Protocol: Document 04/29/22 14:30 DCW (Rec: 04/29/22 15:12 DCW [id number]) OP-PT Subjective Patient Comments Patient Comments Pt a little more tired today, but feeling pretty good. PT-OP-G Mobility & Gait Start: 12/14/21 17:57 Freq: Status: Active Protocol: Document 03/17/22 14:30 DCW (Rec: 03/17/22 15:00 DCW [id number]) OP Mobility Evaluation Transfers Sit to Stand Pt able to sit->stand from w/c Min Ax1 using UE assist on // bars. Pt requires Mod Ax2 at home with and caregiver holding FWW stable so he can pull himself up. Wheelchair Management Type of Wheelchair Manual Assessment Details Pt showing increased use of UEs while propelling wheelchair, although still very slow speed. OP Gait Assessment Comments Gait Comments FWW SBA 40', decreased foot clearance, decreased spenser, heavily relies on UE support. Struggles with turning FWW, requires very wide turning radius. PT-OP-K Range of Motion Start: 12/14/21 17:57 Freq: Status: Active Protocol: Document 03/17/22 14:30 DCW (Rec: 03/17/22 15:00 DCW [id number]) Shoulder Goniometric Range of Motion Shoulder Right Active Shoulder ROM WFL No Testing Position Sitting Flexion 78 Abduction 86 Internal Rotation Behind Back (text) R PSIS PT-OP-M Strength Start: 12/14/21 17:57 Freq: Status: Active Protocol: Document 03/17/22 14:30 DCW (Rec: 03/17/22 15:00 DCW [id number]) Hip Strength Hip Manual Muscle Testing Right Flexion (L2) 3- Fair- Abduction 4- Good- Adduction 4- Good- Left Flexion (L2) 2 Poor Abduction 4- Good- Adduction 4- Good- Knee Strength Knee Manual Muscle Testing Right Flexion (S2) 2+ Poor+ Extension (L3) 4+ Good+ Left Flexion (S2) 3- Fair- Extension (L3) 4+ Good+ Comments Pain with resisted flexion Ankle/Foot Strength Ankle and Foot Manual Muscle Testing Right Dorsiflexion (L4) 0 Zero Plantarflexion (S1) 2+ Poor+ Inversion 0 Zero Eversion (S1) 0 Zero Left Dorsiflexion (L4) 0 Zero Plantarflexion (S1) 1 Trace Inversion 0 Zero Eversion (S1) 0 Zero PT-OP-Q Treatments Start: 12/14/21 17:57 Freq: Status: Active Protocol: Document 04/29/22 14:30 DCW (Rec: 04/29/22 15:12 DCW [id number]) Therapeutic Exercises Sitting Exercises Body Blade Sitting Exercise Name Body blade - Flexion Side right Resistance Yellow body blade Balloon Volley Sitting Exercise Name Balloon volley Side bilateral Resistance 4# Chest Press Sitting Exercise Name UE Chest Press /c PVC Resistance 10# Reps/Minutes x10 Standing Exercises Hip Abduction Standing Exercise Name Hip Abduction Side bilateral Equipment Used // bars Hamstring Curls Standing Exercise Name HS Curls Side bilateral Equipment Used // bars Hip Extension Standing Exercise Name Hip Extension Side bilateral Equipment Used // bars Therapeutic Activity Therapeutic Activity Sit<->stand Name Chair push-ups 2x10 Gait Training Gait Activity FWW Description Fwd amb /c FWW Device Used Bariactric FWW Level of Assistance CGA Comments 128'x1 /c FWW PT-OP-T Assessment and Plan Start: 12/14/21 17:57 Freq: Status: Active Protocol: Document 04/29/22 14:30 DCW (Rec: 04/29/22 15:12 DCW [id number]) Physical Therapy Assessment Impairments Impairments Activity Tolerance,Balance, Edema,Functional Activities, Functional Mobility,Gait,ROM, Sensation,Strength,Tone, Transfers Goals Three Impairment Pt unable to propel himself well in w/c due to severely limited R UE ROM Alemite Operator Goal (LTG) Pt to improve right shoulder ROM to 100? flexion and abduction and increase IR to reach back to at least his left SI area in order to better propel his wheelchair independently. LTG Duration 06/15/22 Two Impairment Pt unable to step inside // bars due to severe ankle weakness and neuropath Alemite Operator Goal (LTG) Pt to ambulate 50' using least restrictive AD CGA while wearing appropriate AFOs to limit impact of foot drop to allow him to be more functionally mobile at home, including getting to the bathroom. LTG Duration 06/15/22 One Impairment Pt does not have an appropriate home exercise program Short Term Goal (STG) Pt to be independent and compliant with an appropriate HEP STG Duration 05/18/22 Progress Towards Goals Progress Towards Goals Slow Progress due to Medical Issues Assessment Summary Assessment Pt had decreased activity tolerance today, much slower spenser, although he was bale to ambulate a slightly further distance. Less reliance on therapist during chair push- ups. Physical Therapy Plan Frequency and Duration Frequency of Treatment 2x/Week Plan of Care Start Date 03/17/22 Plan of Care End Date 06/15/22 Therapeutic Interventions Therapeutic Interventions Aquatic Therapy,Balance Training,Coordination Training ,Gait Training,Home Exercise Program,Lymphedema Management, Manual Therapy,Neuromuscular Re-education,Orthotic/ Prosthetic Management,Patient/ Caregiver Education,Self-Care/ Home Management,Soft Tissue Mobilization,Therapeutic Activities,Therapeutic Exercises,Wheelchair Management Modalities Cold Pack/Ice Massage,Electric Stimulation,Hot Packs, Ultrasound Next Visit Focus/Plan Next Note Type Treatment Note Next Visit Plan Work toward vehicle transfers, Amb FWW outside of // bars, activity tolerance, sit<-> stand, LE strengthening, UE ROM.
--- NOTE | 2022-05-03 15:16 | PT.OTN ---
Current Diagnoses Muscle weakness (generalized) (05/03/22) Unspecified abnormalities of gait and mobility (05/03/22) Other symptoms and signs involving the musculoskeletal system (05/03/22) Other fatigue (05/03/22) Other reduced mobility (05/03/22) Physical Therapy Treatment Note PT-OP-A Visit Information Start: 12/14/21 17:57 Freq: Status: Active Protocol: Document 05/03/22 14:30 DCW (Rec: 05/03/22 15:16 DCW [id number]) Out-Patient Physical Therapy Visit Information Visit Information Visit Type Treatment Note Visit Start Time 14:30 Visit Stop Time 15:15 Total Visit Minutes 45 Visit Number 35 Number of PEDIATRIC IMMUNOLOGIST Visits 0 Evaluation Information Evaluation Date 12/14/21 PT-OP-B Current Condition Start: 12/14/21 17:57 Freq: Status: Active Protocol: Document 12/14/21 16:00 DCW (Rec: 12/14/21 18:10 DCW [id number]) Current Condition History of Current Condition Onset Date February, Current Complaints Physical debility, deconditioning, limited mobility, weakness History of Current Condition Pt is a 71 year old male presenting with a very complicated medical history. Pt was vacationing in [place] in February,, when he was hospitalized with a bacterial respiratory infection. He was there for two weeks, and then airlifted to [facility] in [place], where he remained for 90 days, including a long stay on a respirator. He was released from [facility] on May 17, 2021 and sent to a rehab facility in [place] until October 06, 2021, and then finally released home. Pt had home health PT for a few weeks, but they stopped coming after pt developed pressure ulcers. Pt is now healed, and feeling improved enough to begin outpatient therapy. Pt is dramatically deconditioned, limited to w/c mobility, and only uses a FWW and Mod Ax1 to stand for 1-2 minutes at a time. Pt complains of ongoing neuropathy and foot drop, both of which began during his hospital stay. is primary caregiver, but they do have an additional caregiver come for four hours a day. They have purchased a recumbent elliptical for exercise, and pt has improved from using it on level 0 for 5 minutes to level 8 for an hour or more. Pt notes that he has been trying to get a prescription for AFOs to help with his drop foot, as he is unable to take a step due to 0/5 ankle weakness. Able to slowly mobilize himself in his manual wheelchair, but unable to propell himself with his LEs. Treatment Goals Patient/Caregiver Goals Pt wants to be able to get up and take a few steps. Personal Factors Other Personal Factors That May Effect Obesity, limited R shoulder Therapy/Recovery mobility, severe ankle weakness/drop foot, Hx PE, lymphedema, neuropathy PT-OP-C Subjective Start: 12/14/21 17:57 Freq: Status: Active Protocol: Document 05/03/22 14:30 DCW (Rec: 05/03/22 15:16 DCW [id number]) OP-PT Subjective Patient Comments Patient Comments Pt's notes pt was able to largely get himself to the toilet unassisted today, but needed help getting up off the toilet. PT-OP-G Mobility & Gait Start: 12/14/21 17:57 Freq: Status: Active Protocol: Document 03/17/22 14:30 DCW (Rec: 03/17/22 15:00 DCW [id number]) OP Mobility Evaluation Transfers Sit to Stand Pt able to sit->stand from w/c Min Ax1 using UE assist on // bars. Pt requires Mod Ax2 at home with and caregiver holding FWW stable so he can pull himself up. Wheelchair Management Type of Wheelchair Manual Assessment Details Pt showing increased use of UEs while propelling wheelchair, although still very slow speed. OP Gait Assessment Comments Gait Comments FWW SBA 40', decreased foot clearance, decreased spenser, heavily relies on UE support. Struggles with turning FWW, requires very wide turning radius. PT-OP-K Range of Motion Start: 12/14/21 17:57 Freq: Status: Active Protocol: Document 03/17/22 14:30 DCW (Rec: 03/17/22 15:00 DCW [id number]) Shoulder Goniometric Range of Motion Shoulder Right Active Shoulder ROM WFL No Testing Position Sitting Flexion 78 Abduction 86 Internal Rotation Behind Back (text) R PSIS PT-OP-M Strength Start: 12/14/21 17:57 Freq: Status: Active Protocol: Document 03/17/22 14:30 DCW (Rec: 03/17/22 15:00 DCW [id number]) Hip Strength Hip Manual Muscle Testing Right Flexion (L2) 3- Fair- Abduction 4- Good- Adduction 4- Good- Left Flexion (L2) 2 Poor Abduction 4- Good- Adduction 4- Good- Knee Strength Knee Manual Muscle Testing Right Flexion (S2) 2+ Poor+ Extension (L3) 4+ Good+ Left Flexion (S2) 3- Fair- Extension (L3) 4+ Good+ Comments Pain with resisted flexion Ankle/Foot Strength Ankle and Foot Manual Muscle Testing Right Dorsiflexion (L4) 0 Zero Plantarflexion (S1) 2+ Poor+ Inversion 0 Zero Eversion (S1) 0 Zero Left Dorsiflexion (L4) 0 Zero Plantarflexion (S1) 1 Trace Inversion 0 Zero Eversion (S1) 0 Zero PT-OP-Q Treatments Start: 12/14/21 17:57 Freq: Status: Active Protocol: Document 05/03/22 14:30 DCW (Rec: 05/03/22 15:16 DCW [id number]) Therapeutic Exercises Sitting Exercises Chest Press Sitting Exercise Name UE Chest Press /c PVC Resistance 10# Reps/Minutes x10 UE PNF Sitting Exercise Name PNF B UE Lift Resistance 6.6# ball Reps/Minutes x8 Standing Exercises Hip Abduction Standing Exercise Name Hip Abduction Side bilateral Equipment Used // bars Hamstring Curls Standing Exercise Name HS Curls Side bilateral Equipment Used // bars Hip Extension Standing Exercise Name Hip Extension Side bilateral Equipment Used // bars Gait Training Gait Activity FWW Description Fwd amb /c FWW Device Used Bariactric FWW Level of Assistance CGA Comments 180'x1 50' x1 /c FWW PT-OP-T Assessment and Plan Start: 12/14/21 17:57 Freq: Status: Active Protocol: Document 05/03/22 14:30 DCW (Rec: 05/03/22 15:16 DCW [id number]) Physical Therapy Assessment Impairments Impairments Activity Tolerance,Balance, Edema,Functional Activities, Functional Mobility,Gait,ROM, Sensation,Strength,Tone, Transfers Goals Three Impairment Pt unable to propel himself well in w/c due to severely limited R UE ROM Chcf Goal (LTG) Pt to improve right shoulder ROM to 100? flexion and abduction and increase IR to reach back to at least his left SI area in order to better propel his wheelchair independently. LTG Duration 06/15/22 Two Impairment Pt unable to step inside // bars due to severe ankle weakness and neuropath Summer Babysitter Goal (LTG) Pt to ambulate 50' using least restrictive AD CGA while wearing appropriate AFOs to limit impact of foot drop to allow him to be more functionally mobile at home, including getting to the bathroom. LTG Duration 06/15/22 One Impairment Pt does not have an appropriate home exercise program Short Term Goal (STG) Pt to be independent and compliant with an appropriate HEP STG Duration 05/18/22 Progress Towards Goals Progress Towards Goals Slow Progress due to Medical Issues Assessment Summary Assessment Pt once again reached a personal best with his ambulation distance using a FWW. Additionally, appears to be doing much better with sit< ->stands. Physical Therapy Plan Frequency and Duration Frequency of Treatment 2x/Week Plan of Care Start Date 03/17/22 Plan of Care End Date 06/15/22 Therapeutic Interventions Therapeutic Interventions Aquatic Therapy,Balance Training,Coordination Training ,Gait Training,Home Exercise Program,Lymphedema Management, Manual Therapy,Neuromuscular Re-education,Orthotic/ Prosthetic Management,Patient/ Caregiver Education,Self-Care/ Home Management,Soft Tissue Mobilization,Therapeutic Activities,Therapeutic Exercises,Wheelchair Management Modalities Cold Pack/Ice Massage,Electric Stimulation,Hot Packs, Ultrasound Next Visit Focus/Plan Next Note Type Treatment Note Next Visit Plan Work toward vehicle transfers, Amb FWW outside of // bars, activity tolerance, sit<-> stand, LE strengthening, UE ROM.
--- NOTE | 2022-05-05 15:16 | PT.OTN ---
Current Diagnoses Muscle weakness (generalized) (05/05/22) Unspecified abnormalities of gait and mobility (05/05/22) Other symptoms and signs involving the musculoskeletal system (05/05/22) Other fatigue (05/05/22) Other reduced mobility (05/05/22) Physical Therapy Treatment Note PT-OP-A Visit Information Start: 12/14/21 17:57 Freq: Status: Active Protocol: Document 05/05/22 14:30 DCW (Rec: 05/05/22 15:15 DCW [id number]) Out-Patient Physical Therapy Visit Information Visit Information Visit Type Treatment Note Visit Start Time 14:30 Visit Stop Time 15:15 Total Visit Minutes 45 Visit Number 36 Number of URBAN AND REGIONAL PLANNER Visits 0 Evaluation Information Evaluation Date 12/14/21 PT-OP-B Current Condition Start: 12/14/21 17:57 Freq: Status: Active Protocol: Document 12/14/21 16:00 DCW (Rec: 12/14/21 18:10 DCW [id number]) Current Condition History of Current Condition Onset Date February, Current Complaints Physical debility, deconditioning, limited mobility, weakness History of Current Condition Pt is a 71 year old male presenting with a very complicated medical history. Pt was vacationing in [place] in February,, when he was hospitalized with a bacterial respiratory infection. He was there for two weeks, and then airlifted to [facility] in [place], where he remained for 90 days, including a long stay on a respirator. He was released from [facility] on May 17, 2021 and sent to a rehab facility in [place] until October 06, 2021, and then finally released home. Pt had home health PT for a few weeks, but they stopped coming after pt developed pressure ulcers. Pt is now healed, and feeling improved enough to begin outpatient therapy. Pt is dramatically deconditioned, limited to w/c mobility, and only uses a FWW and Mod Ax1 to stand for 1-2 minutes at a time. Pt complains of ongoing neuropathy and foot drop, both of which began during his hospital stay. is primary caregiver, but they do have an additional caregiver come for four hours a day. They have purchased a recumbent elliptical for exercise, and pt has improved from using it on level 0 for 5 minutes to level 8 for an hour or more. Pt notes that he has been trying to get a prescription for AFOs to help with his drop foot, as he is unable to take a step due to 0/5 ankle weakness. Able to slowly mobilize himself in his manual wheelchair, but unable to propell himself with his LEs. Treatment Goals Patient/Caregiver Goals Pt wants to be able to get up and take a few steps. Personal Factors Other Personal Factors That May Effect Obesity, limited R shoulder Therapy/Recovery mobility, severe ankle weakness/drop foot, Hx PE, lymphedema, neuropathy PT-OP-C Subjective Start: 12/14/21 17:57 Freq: Status: Active Protocol: Document 05/05/22 14:30 DCW (Rec: 05/05/22 15:15 DCW [id number]) OP-PT Subjective Patient Comments Patient Comments Pt reports he was quite sore following his last visit with the increase in walking distance PT-OP-G Mobility & Gait Start: 12/14/21 17:57 Freq: Status: Active Protocol: Document 03/17/22 14:30 DCW (Rec: 03/17/22 15:00 DCW [id number]) OP Mobility Evaluation Transfers Sit to Stand Pt able to sit->stand from w/c Min Ax1 using UE assist on // bars. Pt requires Mod Ax2 at home with and caregiver holding FWW stable so he can pull himself up. Wheelchair Management Type of Wheelchair Manual Assessment Details Pt showing increased use of UEs while propelling wheelchair, although still very slow speed. OP Gait Assessment Comments Gait Comments FWW SBA 40', decreased foot clearance, decreased spenser, heavily relies on UE support. Struggles with turning FWW, requires very wide turning radius. PT-OP-K Range of Motion Start: 12/14/21 17:57 Freq: Status: Active Protocol: Document 03/17/22 14:30 DCW (Rec: 03/17/22 15:00 DCW [id number]) Shoulder Goniometric Range of Motion Shoulder Right Active Shoulder ROM WFL No Testing Position Sitting Flexion 78 Abduction 86 Internal Rotation Behind Back (text) R PSIS PT-OP-M Strength Start: 12/14/21 17:57 Freq: Status: Active Protocol: Document 03/17/22 14:30 DCW (Rec: 03/17/22 15:00 DCW [id number]) Hip Strength Hip Manual Muscle Testing Right Flexion (L2) 3- Fair- Abduction 4- Good- Adduction 4- Good- Left Flexion (L2) 2 Poor Abduction 4- Good- Adduction 4- Good- Knee Strength Knee Manual Muscle Testing Right Flexion (S2) 2+ Poor+ Extension (L3) 4+ Good+ Left Flexion (S2) 3- Fair- Extension (L3) 4+ Good+ Comments Pain with resisted flexion Ankle/Foot Strength Ankle and Foot Manual Muscle Testing Right Dorsiflexion (L4) 0 Zero Plantarflexion (S1) 2+ Poor+ Inversion 0 Zero Eversion (S1) 0 Zero Left Dorsiflexion (L4) 0 Zero Plantarflexion (S1) 1 Trace Inversion 0 Zero Eversion (S1) 0 Zero PT-OP-Q Treatments Start: 12/14/21 17:57 Freq: Status: Active Protocol: Document 05/05/22 14:30 DCW (Rec: 05/05/22 15:15 DCW [id number]) Therapeutic Exercises Sitting Exercises UE PNF Sitting Exercise Name PNF B UE Lift Resistance 6.6# ball Reps/Minutes x8 Standing Exercises Hip Abduction Standing Exercise Name Hip Abduction Side bilateral Resistance Yellow Equipment Used // bars Hip Extension Standing Exercise Name Hip Extension Side bilateral Equipment Used // bars Therapeutic Activity Therapeutic Activity Sit<->stand Name Chair push-ups 2x10 Gait Training Gait Activity FWW Description Fwd amb /c FWW Device Used Bariactric FWW Level of Assistance CGA Comments 120' x1, 100' x1 /c FWW PT-OP-T Assessment and Plan Start: 12/14/21 17:57 Freq: Status: Active Protocol: Document 05/05/22 14:30 DCW (Rec: 05/05/22 15:15 DCW [id number]) Physical Therapy Assessment Impairments Impairments Activity Tolerance,Balance, Edema,Functional Activities, Functional Mobility,Gait,ROM, Sensation,Strength,Tone, Transfers Goals Three Impairment Pt unable to propel himself well in w/c due to severely limited R UE ROM Snf Goal (LTG) Pt to improve right shoulder ROM to 100? flexion and abduction and increase IR to reach back to at least his left SI area in order to better propel his wheelchair independently. LTG Duration 06/15/22 Two Impairment Pt unable to step inside // bars due to severe ankle weakness and neuropath Snf Goal (LTG) Pt to ambulate 50' using least restrictive AD CGA while wearing appropriate AFOs to limit impact of foot drop to allow him to be more functionally mobile at home, including getting to the bathroom. LTG Duration 06/15/22 One Impairment Pt does not have an appropriate home exercise program Short Term Goal (STG) Pt to be independent and compliant with an appropriate HEP STG Duration 05/18/22 Progress Towards Goals Progress Towards Goals Slow Progress due to Medical Issues Assessment Summary Assessment Pt continues to improve with activity tolerance, feeling more comfortable with sit<-> stands and weight shifting. Pt is still limited with inability to use UEs for assistance in standing. Physical Therapy Plan Frequency and Duration Frequency of Treatment 2x/Week Plan of Care Start Date 03/17/22 Plan of Care End Date 06/15/22 Therapeutic Interventions Therapeutic Interventions Aquatic Therapy,Balance Training,Coordination Training ,Gait Training,Home Exercise Program,Lymphedema Management, Manual Therapy,Neuromuscular Re-education,Orthotic/ Prosthetic Management,Patient/ Caregiver Education,Self-Care/ Home Management,Soft Tissue Mobilization,Therapeutic Activities,Therapeutic Exercises,Wheelchair Management Modalities Cold Pack/Ice Massage,Electric Stimulation,Hot Packs, Ultrasound Next Visit Focus/Plan Next Note Type Treatment Note Next Visit Plan Work toward vehicle transfers, Amb FWW outside of // bars, activity tolerance, sit<-> stand, LE strengthening, UE ROM.
--- NOTE | 2022-05-10 15:16 | PT.OTN ---
Current Diagnoses Muscle weakness (generalized) (05/10/22) Unspecified abnormalities of gait and mobility (05/10/22) Other symptoms and signs involving the musculoskeletal system (05/10/22) Other fatigue (05/10/22) Other reduced mobility (05/10/22) Physical Therapy Treatment Note PT-OP-A Visit Information Start: 12/14/21 17:57 Freq: Status: Active Protocol: Document 05/10/22 14:30 DCW (Rec: 05/10/22 15:15 DCW [id number]) Out-Patient Physical Therapy Visit Information Visit Information Visit Type Treatment Note Visit Start Time 14:30 Visit Stop Time 15:15 Total Visit Minutes 45 Visit Number 37 Number of PROPERTY CLERK Visits 0 Evaluation Information Evaluation Date 12/14/21 PT-OP-B Current Condition Start: 12/14/21 17:57 Freq: Status: Active Protocol: Document 12/14/21 16:00 DCW (Rec: 12/14/21 18:10 DCW [id number]) Current Condition History of Current Condition Onset Date February, Current Complaints Physical debility, deconditioning, limited mobility, weakness History of Current Condition Pt is a 71 year old male presenting with a very complicated medical history. Pt was vacationing in [place] in February,, when he was hospitalized with a bacterial respiratory infection. He was there for two weeks, and then airlifted to [facility] in [place], where he remained for 90 days, including a long stay on a respirator. He was released from [facility] on May 17, 2021 and sent to a rehab facility in [place] until October 06, 2021, and then finally released home. Pt had home health PT for a few weeks, but they stopped coming after pt developed pressure ulcers. Pt is now healed, and feeling improved enough to begin outpatient therapy. Pt is dramatically deconditioned, limited to w/c mobility, and only uses a FWW and Mod Ax1 to stand for 1-2 minutes at a time. Pt complains of ongoing neuropathy and foot drop, both of which began during his hospital stay. is primary caregiver, but they do have an additional caregiver come for four hours a day. They have purchased a recumbent elliptical for exercise, and pt has improved from using it on level 0 for 5 minutes to level 8 for an hour or more. Pt notes that he has been trying to get a prescription for AFOs to help with his drop foot, as he is unable to take a step due to 0/5 ankle weakness. Able to slowly mobilize himself in his manual wheelchair, but unable to propell himself with his LEs. Treatment Goals Patient/Caregiver Goals Pt wants to be able to get up and take a few steps. Personal Factors Other Personal Factors That May Effect Obesity, limited R shoulder Therapy/Recovery mobility, severe ankle weakness/drop foot, Hx PE, lymphedema, neuropathy PT-OP-C Subjective Start: 12/14/21 17:57 Freq: Status: Active Protocol: Document 05/10/22 14:30 DCW (Rec: 05/10/22 15:15 DCW [id number]) OP-PT Subjective Patient Comments Patient Comments Pt reports he is pretty tired today. PT-OP-G Mobility & Gait Start: 12/14/21 17:57 Freq: Status: Active Protocol: Document 03/17/22 14:30 DCW (Rec: 03/17/22 15:00 DCW [id number]) OP Mobility Evaluation Transfers Sit to Stand Pt able to sit->stand from w/c Min Ax1 using UE assist on // bars. Pt requires Mod Ax2 at home with and caregiver holding FWW stable so he can pull himself up. Wheelchair Management Type of Wheelchair Manual Assessment Details Pt showing increased use of UEs while propelling wheelchair, although still very slow speed. OP Gait Assessment Comments Gait Comments FWW SBA 40', decreased foot clearance, decreased spenser, heavily relies on UE support. Struggles with turning FWW, requires very wide turning radius. PT-OP-K Range of Motion Start: 12/14/21 17:57 Freq: Status: Active Protocol: Document 03/17/22 14:30 DCW (Rec: 03/17/22 15:00 DCW [id number]) Shoulder Goniometric Range of Motion Shoulder Right Active Shoulder ROM WFL No Testing Position Sitting Flexion 78 Abduction 86 Internal Rotation Behind Back (text) R PSIS PT-OP-M Strength Start: 12/14/21 17:57 Freq: Status: Active Protocol: Document 03/17/22 14:30 DCW (Rec: 03/17/22 15:00 DCW [id number]) Hip Strength Hip Manual Muscle Testing Right Flexion (L2) 3- Fair- Abduction 4- Good- Adduction 4- Good- Left Flexion (L2) 2 Poor Abduction 4- Good- Adduction 4- Good- Knee Strength Knee Manual Muscle Testing Right Flexion (S2) 2+ Poor+ Extension (L3) 4+ Good+ Left Flexion (S2) 3- Fair- Extension (L3) 4+ Good+ Comments Pain with resisted flexion Ankle/Foot Strength Ankle and Foot Manual Muscle Testing Right Dorsiflexion (L4) 0 Zero Plantarflexion (S1) 2+ Poor+ Inversion 0 Zero Eversion (S1) 0 Zero Left Dorsiflexion (L4) 0 Zero Plantarflexion (S1) 1 Trace Inversion 0 Zero Eversion (S1) 0 Zero PT-OP-Q Treatments Start: 12/14/21 17:57 Freq: Status: Active Protocol: Document 05/10/22 14:30 DCW (Rec: 05/10/22 15:15 DCW [id number]) Therapeutic Exercises Sitting Exercises Chest Press Sitting Exercise Name UE Chest Press /c PVC Resistance 10# Reps/Minutes x10 UE PNF Sitting Exercise Name PNF B UE Lift Resistance 6.6# ball Reps/Minutes x8 Standing Exercises Hip Abduction Standing Exercise Name Hip Abduction Side bilateral Resistance Yellow Equipment Used // bars Hip Extension Standing Exercise Name Hip Extension Side bilateral Equipment Used // bars Gait Training Gait Activity FWW Description Fwd amb /c FWW Device Used Bariactric FWW Level of Assistance CGA Comments 140' x1, 80' x1 /c FWW PT-OP-T Assessment and Plan Start: 12/14/21 17:57 Freq: Status: Active Protocol: Document 05/10/22 14:30 DCW (Rec: 05/10/22 15:15 DCW [id number]) Physical Therapy Assessment Impairments Impairments Activity Tolerance,Balance, Edema,Functional Activities, Functional Mobility,Gait,ROM, Sensation,Strength,Tone, Transfers Goals Three Impairment Pt unable to propel himself well in w/c due to severely limited R UE ROM Monitor Technician Goal (LTG) Pt to improve right shoulder ROM to 100? flexion and abduction and increase IR to reach back to at least his left SI area in order to better propel his wheelchair independently. LTG Duration 06/15/22 Two Impairment Pt unable to step inside // bars due to severe ankle weakness and neuropath Monitor Technician Goal (LTG) Pt to ambulate 50' using least restrictive AD CGA while wearing appropriate AFOs to limit impact of foot drop to allow him to be more functionally mobile at home, including getting to the bathroom. LTG Duration 06/15/22 One Impairment Pt does not have an appropriate home exercise program Short Term Goal (STG) Pt to be independent and compliant with an appropriate HEP STG Duration 05/18/22 Progress Towards Goals Progress Towards Goals Slow Progress due to Medical Issues Assessment Summary Assessment Pt clearly more fatigued today , struggled to complete his full two laps, as well as hip abduction and extension. Physical Therapy Plan Frequency and Duration Frequency of Treatment 2x/Week Plan of Care Start Date 03/17/22 Plan of Care End Date 06/15/22 Therapeutic Interventions Therapeutic Interventions Aquatic Therapy,Balance Training,Coordination Training ,Gait Training,Home Exercise Program,Lymphedema Management, Manual Therapy,Neuromuscular Re-education,Orthotic/ Prosthetic Management,Patient/ Caregiver Education,Self-Care/ Home Management,Soft Tissue Mobilization,Therapeutic Activities,Therapeutic Exercises,Wheelchair Management Modalities Cold Pack/Ice Massage,Electric Stimulation,Hot Packs, Ultrasound Next Visit Focus/Plan Next Note Type Treatment Note Next Visit Plan Work toward vehicle transfers, Amb FWW outside of // bars, activity tolerance, sit<-> stand, LE strengthening, UE ROM.
--- NOTE | 2022-05-12 15:11 | PT.OTN ---
Current Diagnoses Muscle weakness (generalized) (05/12/22) Unspecified abnormalities of gait and mobility (05/12/22) Other symptoms and signs involving the musculoskeletal system (05/12/22) Other fatigue (05/12/22) Other reduced mobility (05/12/22) Physical Therapy Treatment Note PT-OP-A Visit Information Start: 12/14/21 17:57 Freq: Status: Active Protocol: Document 05/12/22 14:30 DCW (Rec: 05/12/22 15:11 DCW [id number]) Out-Patient Physical Therapy Visit Information Visit Information Visit Type Treatment Note Visit Start Time 14:30 Visit Stop Time 15:15 Total Visit Minutes 45 Visit Number 38 Number of DATA COMPILER Visits 0 Evaluation Information Evaluation Date 12/14/21 PT-OP-B Current Condition Start: 12/14/21 17:57 Freq: Status: Active Protocol: Document 12/14/21 16:00 DCW (Rec: 12/14/21 18:10 DCW [id number]) Current Condition History of Current Condition Onset Date February, Current Complaints Physical debility, deconditioning, limited mobility, weakness History of Current Condition Pt is a 71 year old male presenting with a very complicated medical history. Pt was vacationing in [place] in February,, when he was hospitalized with a bacterial respiratory infection. He was there for two weeks, and then airlifted to [facility] in [place], where he remained for 90 days, including a long stay on a respirator. He was released from [facility] on May 17, 2021 and sent to a rehab facility in [place] until October 06, 2021, and then finally released home. Pt had home health PT for a few weeks, but they stopped coming after pt developed pressure ulcers. Pt is now healed, and feeling improved enough to begin outpatient therapy. Pt is dramatically deconditioned, limited to w/c mobility, and only uses a FWW and Mod Ax1 to stand for 1-2 minutes at a time. Pt complains of ongoing neuropathy and foot drop, both of which began during his hospital stay. is primary caregiver, but they do have an additional caregiver come for four hours a day. They have purchased a recumbent elliptical for exercise, and pt has improved from using it on level 0 for 5 minutes to level 8 for an hour or more. Pt notes that he has been trying to get a prescription for AFOs to help with his drop foot, as he is unable to take a step due to 0/5 ankle weakness. Able to slowly mobilize himself in his manual wheelchair, but unable to propell himself with his LEs. Treatment Goals Patient/Caregiver Goals Pt wants to be able to get up and take a few steps. Personal Factors Other Personal Factors That May Effect Obesity, limited R shoulder Therapy/Recovery mobility, severe ankle weakness/drop foot, Hx PE, lymphedema, neuropathy PT-OP-C Subjective Start: 12/14/21 17:57 Freq: Status: Active Protocol: Document 05/12/22 14:30 DCW (Rec: 05/12/22 15:11 DCW [id number]) OP-PT Subjective Patient Comments Patient Comments Pt reports he didn't do enough exercise this morning, so he is not limbered up. PT-OP-G Mobility & Gait Start: 12/14/21 17:57 Freq: Status: Active Protocol: Document 03/17/22 14:30 DCW (Rec: 03/17/22 15:00 DCW [id number]) OP Mobility Evaluation Transfers Sit to Stand Pt able to sit->stand from w/c Min Ax1 using UE assist on // bars. Pt requires Mod Ax2 at home with and caregiver holding FWW stable so he can pull himself up. Wheelchair Management Type of Wheelchair Manual Assessment Details Pt showing increased use of UEs while propelling wheelchair, although still very slow speed. OP Gait Assessment Comments Gait Comments FWW SBA 40', decreased foot clearance, decreased spenser, heavily relies on UE support. Struggles with turning FWW, requires very wide turning radius. PT-OP-K Range of Motion Start: 12/14/21 17:57 Freq: Status: Active Protocol: Document 03/17/22 14:30 DCW (Rec: 03/17/22 15:00 DCW [id number]) Shoulder Goniometric Range of Motion Shoulder Right Active Shoulder ROM WFL No Testing Position Sitting Flexion 78 Abduction 86 Internal Rotation Behind Back (text) R PSIS PT-OP-M Strength Start: 12/14/21 17:57 Freq: Status: Active Protocol: Document 03/17/22 14:30 DCW (Rec: 03/17/22 15:00 DCW [id number]) Hip Strength Hip Manual Muscle Testing Right Flexion (L2) 3- Fair- Abduction 4- Good- Adduction 4- Good- Left Flexion (L2) 2 Poor Abduction 4- Good- Adduction 4- Good- Knee Strength Knee Manual Muscle Testing Right Flexion (S2) 2+ Poor+ Extension (L3) 4+ Good+ Left Flexion (S2) 3- Fair- Extension (L3) 4+ Good+ Comments Pain with resisted flexion Ankle/Foot Strength Ankle and Foot Manual Muscle Testing Right Dorsiflexion (L4) 0 Zero Plantarflexion (S1) 2+ Poor+ Inversion 0 Zero Eversion (S1) 0 Zero Left Dorsiflexion (L4) 0 Zero Plantarflexion (S1) 1 Trace Inversion 0 Zero Eversion (S1) 0 Zero PT-OP-Q Treatments Start: 12/14/21 17:57 Freq: Status: Active Protocol: Document 05/12/22 14:30 DCW (Rec: 05/12/22 15:11 DC [id number]) Therapeutic Exercises Sitting Exercises Chest Press Sitting Exercise Name UE Chest Press /c PVC Resistance 10# Reps/Minutes x10 UE PNF Sitting Exercise Name PNF B UE Lift Resistance 6.6# ball Reps/Minutes x10 Standing Exercises Hip Abduction Standing Exercise Name Hip Abduction Side bilateral Resistance Yellow Equipment Used // bars Hip Extension Standing Exercise Name Hip Extension Side bilateral Equipment Used // bars Gait Training Gait Activity FWW Description Fwd amb /c FWW Device Used Bariactric FWW Level of Assistance CGA Comments 120' x1, 100' x1 /c FWW PT-OP-T Assessment and Plan Start: 12/14/21 17:57 Freq: Status: Active Protocol: Document 05/12/22 14:30 DCW (Rec: 05/12/22 15:11 DCW [id number]) Physical Therapy Assessment Impairments Impairments Activity Tolerance,Balance, Edema,Functional Activities, Functional Mobility,Gait,ROM, Sensation,Strength,Tone, Transfers Goals Three Impairment Pt unable to propel himself well in w/c due to severely limited R UE ROM Hand Stone Polisher Goal (LTG) Pt to improve right shoulder ROM to 100? flexion and abduction and increase IR to reach back to at least his left SI area in order to better propel his wheelchair independently. LTG Duration 06/15/22 Two Impairment Pt unable to step inside // bars due to severe ankle weakness and neuropath Hand Stone Polisher Goal (LTG) Pt to ambulate 50' using least restrictive AD CGA while wearing appropriate AFOs to limit impact of foot drop to allow him to be more functionally mobile at home, including getting to the bathroom. LTG Duration 06/15/22 One Impairment Pt does not have an appropriate home exercise program Short Term Goal (STG) Pt to be independent and compliant with an appropriate HEP STG Duration 05/18/22 Progress Towards Goals Progress Towards Goals Slow Progress due to Medical Issues Assessment Summary Assessment Slower spenser today during ambulation, took up more of his session than usual. Still struggling more shifting weight to left leg than right. Physical Therapy Plan Frequency and Duration Frequency of Treatment 2x/Week Plan of Care Start Date 03/17/22 Plan of Care End Date 06/15/22 Therapeutic Interventions Therapeutic Interventions Aquatic Therapy,Balance Training,Coordination Training ,Gait Training,Home Exercise Program,Lymphedema Management, Manual Therapy,Neuromuscular Re-education,Orthotic/ Prosthetic Management,Patient/ Caregiver Education,Self-Care/ Home Management,Soft Tissue Mobilization,Therapeutic Activities,Therapeutic Exercises,Wheelchair Management Modalities Cold Pack/Ice Massage,Electric Stimulation,Hot Packs, Ultrasound Next Visit Focus/Plan Next Note Type Treatment Note Next Visit Plan Work toward vehicle transfers, Amb FWW outside of // bars, activity tolerance, sit<-> stand, LE strengthening, UE ROM.
--- NOTE | 2022-05-17 15:15 | PT.OTN ---
Current Diagnoses Muscle weakness (generalized) (05/17/22) Unspecified abnormalities of gait and mobility (05/17/22) Other symptoms and signs involving the musculoskeletal system (05/17/22) Other fatigue (05/17/22) Other reduced mobility (05/17/22) Physical Therapy Treatment Note PT-OP-A Visit Information Start: 12/14/21 17:57 Freq: Status: Active Protocol: Document 05/17/22 14:30 DCW (Rec: 05/17/22 15:15 DCW [id number]) Out-Patient Physical Therapy Visit Information Visit Information Visit Type Treatment Note Visit Start Time 14:30 Visit Stop Time 15:15 Total Visit Minutes 45 Visit Number 39 Number of NURSERY HELPER Visits 0 Evaluation Information Evaluation Date 12/14/21 PT-OP-B Current Condition Start: 12/14/21 17:57 Freq: Status: Active Protocol: Document 12/14/21 16:00 DCW (Rec: 12/14/21 18:10 DCW [id number]) Current Condition History of Current Condition Onset Date February, Current Complaints Physical debility, deconditioning, limited mobility, weakness History of Current Condition Pt is a 71 year old male presenting with a very complicated medical history. Pt was vacationing in [place] in February,, when he was hospitalized with a bacterial respiratory infection. He was there for two weeks, and then airlifted to [facility] in [place], where he remained for 90 days, including a long stay on a respirator. He was released from [facility] on May 17, 2021 and sent to a rehab facility in [place] until October 06, 2021, and then finally released home. Pt had home health PT for a few weeks, but they stopped coming after pt developed pressure ulcers. Pt is now healed, and feeling improved enough to begin outpatient therapy. Pt is dramatically deconditioned, limited to w/c mobility, and only uses a FWW and Mod Ax1 to stand for 1-2 minutes at a time. Pt complains of ongoing neuropathy and foot drop, both of which began during his hospital stay. is primary caregiver, but they do have an additional caregiver come for four hours a day. They have purchased a recumbent elliptical for exercise, and pt has improved from using it on level 0 for 5 minutes to level 8 for an hour or more. Pt notes that he has been trying to get a prescription for AFOs to help with his drop foot, as he is unable to take a step due to 0/5 ankle weakness. Able to slowly mobilize himself in his manual wheelchair, but unable to propell himself with his LEs. Treatment Goals Patient/Caregiver Goals Pt wants to be able to get up and take a few steps. Personal Factors Other Personal Factors That May Effect Obesity, limited R shoulder Therapy/Recovery mobility, severe ankle weakness/drop foot, Hx PE, lymphedema, neuropathy PT-OP-C Subjective Start: 12/14/21 17:57 Freq: Status: Active Protocol: Document 05/17/22 14:30 DCW (Rec: 05/17/22 15:15 DCW [id number]) OP-PT Subjective Patient Comments Patient Comments Pt reports he is feeling blah today. admits pt has been feeling some increased chest congestion. PT-OP-G Mobility & Gait Start: 12/14/21 17:57 Freq: Status: Active Protocol: Document 03/17/22 14:30 DCW (Rec: 03/17/22 15:00 DCW [id number]) OP Mobility Evaluation Transfers Sit to Stand Pt able to sit->stand from w/c Min Ax1 using UE assist on // bars. Pt requires Mod Ax2 at home with and caregiver holding FWW stable so he can pull himself up. Wheelchair Management Type of Wheelchair Manual Assessment Details Pt showing increased use of UEs while propelling wheelchair, although still very slow speed. OP Gait Assessment Comments Gait Comments FWW SBA 40', decreased foot clearance, decreased spenser, heavily relies on UE support. Struggles with turning FWW, requires very wide turning radius. PT-OP-K Range of Motion Start: 12/14/21 17:57 Freq: Status: Active Protocol: Document 03/17/22 14:30 DCW (Rec: 03/17/22 15:00 DCW [id number]) Shoulder Goniometric Range of Motion Shoulder Right Active Shoulder ROM WFL No Testing Position Sitting Flexion 78 Abduction 86 Internal Rotation Behind Back (text) R PSIS PT-OP-M Strength Start: 12/14/21 17:57 Freq: Status: Active Protocol: Document 03/17/22 14:30 DCW (Rec: 03/17/22 15:00 DCW [id number]) Hip Strength Hip Manual Muscle Testing Right Flexion (L2) 3- Fair- Abduction 4- Good- Adduction 4- Good- Left Flexion (L2) 2 Poor Abduction 4- Good- Adduction 4- Good- Knee Strength Knee Manual Muscle Testing Right Flexion (S2) 2+ Poor+ Extension (L3) 4+ Good+ Left Flexion (S2) 3- Fair- Extension (L3) 4+ Good+ Comments Pain with resisted flexion Ankle/Foot Strength Ankle and Foot Manual Muscle Testing Right Dorsiflexion (L4) 0 Zero Plantarflexion (S1) 2+ Poor+ Inversion 0 Zero Eversion (S1) 0 Zero Left Dorsiflexion (L4) 0 Zero Plantarflexion (S1) 1 Trace Inversion 0 Zero Eversion (S1) 0 Zero PT-OP-Q Treatments Start: 12/14/21 17:57 Freq: Status: Active Protocol: Document 05/17/22 14:30 DCW (Rec: 05/17/22 15:15 DCW [id number]) Therapeutic Exercises Sitting Exercises Chest Press Sitting Exercise Name UE Chest Press /c PVC Resistance 10# Reps/Minutes x10 UE PNF Sitting Exercise Name PNF B UE Lift Resistance 6.6# ball Reps/Minutes x10 Gait Training Gait Activity FWW Description Fwd amb /c FWW Device Used Bariactric FWW Level of Assistance CGA Comments 90' x1, 100' x1 /c FWW Stance Description Double leg stance /s UE support Device Used // bars with FWW Pre-gait Description Pre-gait weight shift Device Used // bars Level of Assistance Min Ax1 Distance/Duration 5' Comments Weight-shift with standing marching PT-OP-T Assessment and Plan Start: 12/14/21 17:57 Freq: Status: Active Protocol: Document 05/17/22 14:30 DCW (Rec: 05/17/22 15:15 DCW [id number]) Physical Therapy Assessment Impairments Impairments Activity Tolerance,Balance, Edema,Functional Activities, Functional Mobility,Gait,ROM, Sensation,Strength,Tone, Transfers Goals Three Impairment Pt unable to propel himself well in w/c due to severely limited R UE ROM Dental Surgery Doctor Goal (LTG) Pt to improve right shoulder ROM to 100? flexion and abduction and increase IR to reach back to at least his left SI area in order to better propel his wheelchair independently. LTG Duration 06/15/22 Two Impairment Pt unable to step inside // bars due to severe ankle weakness and neuropath Alf Goal (LTG) Pt to ambulate 50' using least restrictive AD CGA while wearing appropriate AFOs to limit impact of foot drop to allow him to be more functionally mobile at home, including getting to the bathroom. LTG Duration 06/15/22 One Impairment Pt does not have an appropriate home exercise program Short Term Goal (STG) Pt to be independent and compliant with an appropriate HEP STG Duration 05/18/22 Progress Towards Goals Progress Towards Goals Slow Progress due to Medical Issues Assessment Summary Assessment Again demonstrating slower spenser, increased fatigued. O2 sat measured at multiple points during today's session, remained 95-97% at all times. Continue to work on activity tolerance, gait/balance, and strengthening. Physical Therapy Plan Frequency and Duration Frequency of Treatment 2x/Week Plan of Care Start Date 03/17/22 Plan of Care End Date 06/15/22 Therapeutic Interventions Therapeutic Interventions Aquatic Therapy,Balance Training,Coordination Training ,Gait Training,Home Exercise Program,Lymphedema Management, Manual Therapy,Neuromuscular Re-education,Orthotic/ Prosthetic Management,Patient/ Caregiver Education,Self-Care/ Home Management,Soft Tissue Mobilization,Therapeutic Activities,Therapeutic Exercises,Wheelchair Management Modalities Cold Pack/Ice Massage,Electric Stimulation,Hot Packs, Ultrasound Next Visit Focus/Plan Next Note Type Treatment Note Next Visit Plan Work toward vehicle transfers, Amb FWW outside of // bars, activity tolerance, sit<-> stand, LE strengthening, UE ROM.
--- NOTE | 2022-05-24 15:17 | PT.OTN ---
Current Diagnoses Muscle weakness (generalized) (05/24/22) Unspecified abnormalities of gait and mobility (05/24/22) Other symptoms and signs involving the musculoskeletal system (05/24/22) Other fatigue (05/24/22) Other reduced mobility (05/24/22) Physical Therapy Treatment Note PT-OP-A Visit Information Start: 12/14/21 17:57 Freq: Status: Active Protocol: Document 05/24/22 14:30 DCW (Rec: 05/24/22 15:17 DCW [id number]) Out-Patient Physical Therapy Visit Information Visit Information Visit Type Treatment Note Visit Start Time 14:30 Visit Stop Time 15:15 Total Visit Minutes 45 Visit Number [address] JUDGE Visits 0 Evaluation Information Evaluation Date 12/14/21 PT-OP-B Current Condition Start: 12/14/21 17:57 Freq: Status: Active Protocol: Document 12/14/21 16:00 DCW (Rec: 12/14/21 18:10 DCW [id number]) Current Condition History of Current Condition Onset Date February, Current Complaints Physical debility, deconditioning, limited mobility, weakness History of Current Condition Pt is a 71 year old male presenting with a very complicated medical history. Pt was vacationing in [place] in February,, when he was hospitalized with a bacterial respiratory infection. He was there for two weeks, and then airlifted to [facility] in [place], where he remained for 90 days, including a long stay on a respirator. He was released from [facility] on May 17, 2021 and sent to a rehab facility in [place] until October 06, 2021, and then finally released home. Pt had home health PT for a few weeks, but they stopped coming after pt developed pressure ulcers. Pt is now healed, and feeling improved enough to begin outpatient therapy. Pt is dramatically deconditioned, limited to w/c mobility, and only uses a FWW and Mod Ax1 to stand for 1-2 minutes at a time. Pt complains of ongoing neuropathy and foot drop, both of which began during his hospital stay. is primary caregiver, but they do have an additional caregiver come for four hours a day. They have purchased a recumbent elliptical for exercise, and pt has improved from using it on level 0 for 5 minutes to level 8 for an hour or more. Pt notes that he has been trying to get a prescription for AFOs to help with his drop foot, as he is unable to take a step due to 0/5 ankle weakness. Able to slowly mobilize himself in his manual wheelchair, but unable to propell himself with his LEs. Treatment Goals Patient/Caregiver Goals Pt wants to be able to get up and take a few steps. Personal Factors Other Personal Factors That May Effect Obesity, limited R shoulder Therapy/Recovery mobility, severe ankle weakness/drop foot, Hx PE, lymphedema, neuropathy PT-OP-C Subjective Start: 12/14/21 17:57 Freq: Status: Active Protocol: Document 05/24/22 14:30 DCW (Rec: 05/24/22 15:17 DCW [id number]) OP-PT Subjective Patient Comments Patient Comments Pt still feeling congested and run down, saw PCP yesterday, they feel it is just some upper respiratory congestion PT-OP-G Mobility & Gait Start: 12/14/21 17:57 Freq: Status: Active Protocol: Document 03/17/22 14:30 DCW (Rec: 03/17/22 15:00 DCW [id number]) OP Mobility Evaluation Transfers Sit to Stand Pt able to sit->stand from w/c Min Ax1 using UE assist on // bars. Pt requires Mod Ax2 at home with and caregiver holding FWW stable so he can pull himself up. Wheelchair Management Type of Wheelchair Manual Assessment Details Pt showing increased use of UEs while propelling wheelchair, although still very slow speed. OP Gait Assessment Comments Gait Comments FWW SBA 40', decreased foot clearance, decreased spenser, heavily relies on UE support. Struggles with turning FWW, requires very wide turning radius. PT-OP-K Range of Motion Start: 12/14/21 17:57 Freq: Status: Active Protocol: Document 03/17/22 14:30 DCW (Rec: 03/17/22 15:00 DCW [id number]) Shoulder Goniometric Range of Motion Shoulder Right Active Shoulder ROM WFL No Testing Position Sitting Flexion 78 Abduction 86 Internal Rotation Behind Back (text) R PSIS PT-OP-M Strength Start: 12/14/21 17:57 Freq: Status: Active Protocol: Document 03/17/22 14:30 DCW (Rec: 03/17/22 15:00 DCW [id number]) Hip Strength Hip Manual Muscle Testing Right Flexion (L2) 3- Fair- Abduction 4- Good- Adduction 4- Good- Left Flexion (L2) 2 Poor Abduction 4- Good- Adduction 4- Good- Knee Strength Knee Manual Muscle Testing Right Flexion (S2) 2+ Poor+ Extension (L3) 4+ Good+ Left Flexion (S2) 3- Fair- Extension (L3) 4+ Good+ Comments Pain with resisted flexion Ankle/Foot Strength Ankle and Foot Manual Muscle Testing Right Dorsiflexion (L4) 0 Zero Plantarflexion (S1) 2+ Poor+ Inversion 0 Zero Eversion (S1) 0 Zero Left Dorsiflexion (L4) 0 Zero Plantarflexion (S1) 1 Trace Inversion 0 Zero Eversion (S1) 0 Zero PT-OP-Q Treatments Start: 12/14/21 17:57 Freq: Status: Active Protocol: Document 05/24/22 14:30 DCW (Rec: 05/24/22 15:17 DCW [id number]) Therapeutic Exercises Sitting Exercises Chest Press Sitting Exercise Name UE Chest Press /c PVC Resistance 10# Reps/Minutes x10 UE PNF Sitting Exercise Name PNF B UE Lift Resistance 6.6# ball Reps/Minutes x10 Standing Exercises Hip Abduction Standing Exercise Name Hip Abduction Side bilateral Resistance Yellow Equipment Used // bars Hamstring Curls Standing Exercise Name HS Curls Side bilateral Equipment Used // bars Hip Extension Standing Exercise Name Hip Extension Side bilateral Equipment Used // bars Gait Training Gait Activity FWW Description Fwd amb /c FWW Device Used Bariactric FWW Level of Assistance CGA Comments 110' x1, 100' x1 /c FWW PT-OP-T Assessment and Plan Start: 12/14/21 17:57 Freq: Status: Active Protocol: Document 05/24/22 14:30 DCW (Rec: 05/24/22 15:17 DCW [id number]) Physical Therapy Assessment Impairments Impairments Activity Tolerance,Balance, Edema,Functional Activities, Functional Mobility,Gait,ROM, Sensation,Strength,Tone, Transfers Goals Three Impairment Pt unable to propel himself well in w/c due to severely limited R UE ROM Correction Goal (LTG) Pt to improve right shoulder ROM to 100? flexion and abduction and increase IR to reach back to at least his left SI area in order to better propel his wheelchair independently. LTG Duration 06/15/22 Two Impairment Pt unable to step inside // bars due to severe ankle weakness and neuropath Crime Prevention Police Officer Goal (LTG) Pt to ambulate 50' using least restrictive AD CGA while wearing appropriate AFOs to limit impact of foot drop to allow him to be more functionally mobile at home, including getting to the bathroom. LTG Duration 06/15/22 One Impairment Pt does not have an appropriate home exercise program Short Term Goal (STG) Pt to be independent and compliant with an appropriate HEP STG Duration 05/18/22 Progress Towards Goals Progress Towards Goals Slow Progress due to Medical Issues Assessment Summary Assessment Pt showed some much better ambulation today, spenser did slow down significantly as he experienced decreased activity tolerance. Continues to struggle in // bars when needing to shift weight onto left leg. Physical Therapy Plan Frequency and Duration Frequency of Treatment 2x/Week Plan of Care Start Date 03/17/22 Plan of Care End Date 06/15/22 Therapeutic Interventions Therapeutic Interventions Aquatic Therapy,Balance Training,Coordination Training ,Gait Training,Home Exercise Program,Lymphedema Management, Manual Therapy,Neuromuscular Re-education,Orthotic/ Prosthetic Management,Patient/ Caregiver Education,Self-Care/ Home Management,Soft Tissue Mobilization,Therapeutic Activities,Therapeutic Exercises,Wheelchair Management Modalities Cold Pack/Ice Massage,Electric Stimulation,Hot Packs, Ultrasound Next Visit Focus/Plan Next Note Type Treatment Note Next Visit Plan Work toward vehicle transfers, Amb FWW outside of // bars, activity tolerance, sit<-> stand, LE strengthening, UE ROM.
--- NOTE | 2022-05-26 15:14 | PT.OTN ---
Current Diagnoses Muscle weakness (generalized) (05/26/22) Unspecified abnormalities of gait and mobility (05/26/22) Other symptoms and signs involving the musculoskeletal system (05/26/22) Other fatigue (05/26/22) Other reduced mobility (05/26/22) Physical Therapy Treatment Note PT-OP-A Visit Information Start: 12/14/21 17:57 Freq: Status: Active Protocol: Document 05/26/22 14:30 DCW (Rec: 05/26/22 15:14 DCW [id number]) Out-Patient Physical Therapy Visit Information Visit Information Visit Type Treatment Note Visit Start Time 14:30 Visit Stop Time 15:15 Total Visit Minutes 45 Visit Number 41 Number of PEOPLESOFT DEVELOPER Visits 0 Evaluation Information Evaluation Date 12/14/21 PT-OP-B Current Condition Start: 12/14/21 17:57 Freq: Status: Active Protocol: Document 12/14/21 16:00 DCW (Rec: 12/14/21 18:10 DCW [id number]) Current Condition History of Current Condition Onset Date February, Current Complaints Physical debility, deconditioning, limited mobility, weakness History of Current Condition Pt is a 71 year old male presenting with a very complicated medical history. Pt was vacationing in [place] in February,, when he was hospitalized with a bacterial respiratory infection. He was there for two weeks, and then airlifted to [facility] in [place], where he remained for 90 days, including a long stay on a respirator. He was released from [facility] on May 17, 2021 and sent to a rehab facility in [place] until October 06, 2021, and then finally released home. Pt had home health PT for a few weeks, but they stopped coming after pt developed pressure ulcers. Pt is now healed, and feeling improved enough to begin outpatient therapy. Pt is dramatically deconditioned, limited to w/c mobility, and only uses a FWW and Mod Ax1 to stand for 1-2 minutes at a time. Pt complains of ongoing neuropathy and foot drop, both of which began during his hospital stay. is primary caregiver, but they do have an additional caregiver come for four hours a day. They have purchased a recumbent elliptical for exercise, and pt has improved from using it on level 0 for 5 minutes to level 8 for an hour or more. Pt notes that he has been trying to get a prescription for AFOs to help with his drop foot, as he is unable to take a step due to 0/5 ankle weakness. Able to slowly mobilize himself in his manual wheelchair, but unable to propell himself with his LEs. Treatment Goals Patient/Caregiver Goals Pt wants to be able to get up and take a few steps. Personal Factors Other Personal Factors That May Effect Obesity, limited R shoulder Therapy/Recovery mobility, severe ankle weakness/drop foot, Hx PE, lymphedema, neuropathy PT-OP-C Subjective Start: 12/14/21 17:57 Freq: Status: Active Protocol: Document 05/26/22 14:30 DCW (Rec: 05/26/22 15:13 DCW [id number]) OP-PT Subjective Patient Comments Patient Comments Pt and report pt has a UTI, but congestion is not pneumonia this time, /likely just bronchitis. PT-OP-G Mobility & Gait Start: 12/14/21 17:57 Freq: Status: Active Protocol: Document 03/17/22 14:30 DCW (Rec: 03/17/22 15:00 DCW [id number]) OP Mobility Evaluation Transfers Sit to Stand Pt able to sit->stand from w/c Min Ax1 using UE assist on // bars. Pt requires Mod Ax2 at home with and caregiver holding FWW stable so he can pull himself up. Wheelchair Management Type of Wheelchair Manual Assessment Details Pt showing increased use of UEs while propelling wheelchair, although still very slow speed. OP Gait Assessment Comments Gait Comments FWW SBA 40', decreased foot clearance, decreased spenser, heavily relies on UE support. Struggles with turning FWW, requires very wide turning radius. PT-OP-K Range of Motion Start: 12/14/21 17:57 Freq: Status: Active Protocol: Document 03/17/22 14:30 DCW (Rec: 03/17/22 15:00 DCW [id number]) Shoulder Goniometric Range of Motion Shoulder Right Active Shoulder ROM WFL No Testing Position Sitting Flexion 78 Abduction 86 Internal Rotation Behind Back (text) R PSIS PT-OP-M Strength Start: 12/14/21 17:57 Freq: Status: Active Protocol: Document 03/17/22 14:30 DCW (Rec: 03/17/22 15:00 DCW [id number]) Hip Strength Hip Manual Muscle Testing Right Flexion (L2) 3- Fair- Abduction 4- Good- Adduction 4- Good- Left Flexion (L2) 2 Poor Abduction 4- Good- Adduction 4- Good- Knee Strength Knee Manual Muscle Testing Right Flexion (S2) 2+ Poor+ Extension (L3) 4+ Good+ Left Flexion (S2) 3- Fair- Extension (L3) 4+ Good+ Comments Pain with resisted flexion Ankle/Foot Strength Ankle and Foot Manual Muscle Testing Right Dorsiflexion (L4) 0 Zero Plantarflexion (S1) 2+ Poor+ Inversion 0 Zero Eversion (S1) 0 Zero Left Dorsiflexion (L4) 0 Zero Plantarflexion (S1) 1 Trace Inversion 0 Zero Eversion (S1) 0 Zero PT-OP-Q Treatments Start: 12/14/21 17:57 Freq: Status: Active Protocol: Document 05/26/22 14:30 DCW (Rec: 05/26/22 15:13 DCW [id number]) Gait Training Gait Activity FWW Description Fwd amb /c FWW Device Used Bariactric FWW Level of Assistance CGA Comments 90' x1, 70' x1 /c FWW Stance Description Double leg stance /s UE support Device Used // bars with FWW Comments WBOS, Stride stance PT-OP-T Assessment and Plan Start: 12/14/21 17:57 Freq: Status: Active Protocol: Document 05/26/22 14:30 DCW (Rec: 05/26/22 15:13 DCW [id number]) Physical Therapy Assessment Impairments Impairments Activity Tolerance,Balance, Edema,Functional Activities, Functional Mobility,Gait,ROM, Sensation,Strength,Tone, Transfers Goals Three Impairment Pt unable to propel himself well in w/c due to severely limited R UE ROM Halfway Goal (LTG) Pt to improve right shoulder ROM to 100? flexion and abduction and increase IR to reach back to at least his left SI area in order to better propel his wheelchair independently. LTG Duration 06/15/22 Two Impairment Pt unable to step inside // bars due to severe ankle weakness and neuropath Cutter Head Sharpener Goal (LTG) Pt to ambulate 50' using least restrictive AD CGA while wearing appropriate AFOs to limit impact of foot drop to allow him to be more functionally mobile at home, including getting to the bathroom. LTG Duration 06/15/22 One Impairment Pt does not have an appropriate home exercise program Short Term Goal (STG) Pt to be independent and compliant with an appropriate HEP STG Duration 05/18/22 Progress Towards Goals Progress Towards Goals Slow Progress due to Medical Issues Assessment Summary Assessment Pt very fatigued today, poor activity tolerance, slower spenser with ambulation, required more rest breaks today. Physical Therapy Plan Frequency and Duration Frequency of Treatment 2x/Week Plan of Care Start Date 03/17/22 Plan of Care End Date 06/15/22 Therapeutic Interventions Therapeutic Interventions Aquatic Therapy,Balance Training,Coordination Training ,Gait Training,Home Exercise Program,Lymphedema Management, Manual Therapy,Neuromuscular Re-education,Orthotic/ Prosthetic Management,Patient/ Caregiver Education,Self-Care/ Home Management,Soft Tissue Mobilization,Therapeutic Activities,Therapeutic Exercises,Wheelchair Management Modalities Cold Pack/Ice Massage,Electric Stimulation,Hot Packs, Ultrasound Next Visit Focus/Plan Next Note Type Treatment Note Next Visit Plan Work toward vehicle transfers, Amb FWW outside of // bars, activity tolerance, sit<-> stand, LE strengthening, UE ROM.
--- NOTE | 2022-05-31 15:14 | PT.OTN ---
Current Diagnoses Muscle weakness (generalized) (05/31/22) Unspecified abnormalities of gait and mobility (05/31/22) Other symptoms and signs involving the musculoskeletal system (05/31/22) Other fatigue (05/31/22) Other reduced mobility (05/31/22) Physical Therapy Treatment Note PT-OP-A Visit Information Start: 12/14/21 17:57 Freq: Status: Active Protocol: Document 05/31/22 14:30 DCW (Rec: 05/31/22 15:14 DCW [id number]) Out-Patient Physical Therapy Visit Information Visit Information Visit Type Treatment Note Visit Start Time 14:30 Visit Stop Time 15:15 Total Visit Minutes 45 Visit Number 42 Number of SUPERVISOR PUMPING Visits 0 Evaluation Information Evaluation Date 12/14/21 PT-OP-B Current Condition Start: 12/14/21 17:57 Freq: Status: Active Protocol: Document 12/14/21 16:00 DCW (Rec: 12/14/21 18:10 DCW [id number]) Current Condition History of Current Condition Onset Date February, Current Complaints Physical debility, deconditioning, limited mobility, weakness History of Current Condition Pt is a 71 year old male presenting with a very complicated medical history. Pt was vacationing in [place] in February,, when he was hospitalized with a bacterial respiratory infection. He was there for two weeks, and then airlifted to [facility] in [place], where he remained for 90 days, including a long stay on a respirator. He was released from [facility] on May 17, 2021 and sent to a rehab facility in [place] until October 06, 2021, and then finally released home. Pt had home health PT for a few weeks, but they stopped coming after pt developed pressure ulcers. Pt is now healed, and feeling improved enough to begin outpatient therapy. Pt is dramatically deconditioned, limited to w/c mobility, and only uses a FWW and Mod Ax1 to stand for 1-2 minutes at a time. Pt complains of ongoing neuropathy and foot drop, both of which began during his hospital stay. is primary caregiver, but they do have an additional caregiver come for four hours a day. They have purchased a recumbent elliptical for exercise, and pt has improved from using it on level 0 for 5 minutes to level 8 for an hour or more. Pt notes that he has been trying to get a prescription for AFOs to help with his drop foot, as he is unable to take a step due to 0/5 ankle weakness. Able to slowly mobilize himself in his manual wheelchair, but unable to propell himself with his LEs. Treatment Goals Patient/Caregiver Goals Pt wants to be able to get up and take a few steps. Personal Factors Other Personal Factors That May Effect Obesity, limited R shoulder Therapy/Recovery mobility, severe ankle weakness/drop foot, Hx PE, lymphedema, neuropathy PT-OP-C Subjective Start: 12/14/21 17:57 Freq: Status: Active Protocol: Document 05/31/22 14:30 DCW (Rec: 05/31/22 15:14 DCW [id number]) OP-PT Subjective Patient Comments Patient Comments Pt and excited about recent progress, has been able to get himself up out of bed and walk 20' to their elevator , and then get himself turned around and walk to his recliner. PT-OP-G Mobility & Gait Start: 12/14/21 17:57 Freq: Status: Active Protocol: Document 03/17/22 14:30 DCW (Rec: 03/17/22 15:00 DCW [id number]) OP Mobility Evaluation Transfers Sit to Stand Pt able to sit->stand from w/c Min Ax1 using UE assist on // bars. Pt requires Mod Ax2 at home with and caregiver holding FWW stable so he can pull himself up. Wheelchair Management Type of Wheelchair Manual Assessment Details Pt showing increased use of UEs while propelling wheelchair, although still very slow speed. OP Gait Assessment Comments Gait Comments FWW SBA 40', decreased foot clearance, decreased spenser, heavily relies on UE support. Struggles with turning FWW, requires very wide turning radius. PT-OP-K Range of Motion Start: 12/14/21 17:57 Freq: Status: Active Protocol: Document 03/17/22 14:30 DCW (Rec: 03/17/22 15:00 DCW [id number]) Shoulder Goniometric Range of Motion Shoulder Right Active Shoulder ROM WFL No Testing Position Sitting Flexion 78 Abduction 86 Internal Rotation Behind Back (text) R PSIS PT-OP-M Strength Start: 12/14/21 17:57 Freq: Status: Active Protocol: Document 03/17/22 14:30 DCW (Rec: 03/17/22 15:00 DCW [id number]) Hip Strength Hip Manual Muscle Testing Right Flexion (L2) 3- Fair- Abduction 4- Good- Adduction 4- Good- Left Flexion (L2) 2 Poor Abduction 4- Good- Adduction 4- Good- Knee Strength Knee Manual Muscle Testing Right Flexion (S2) 2+ Poor+ Extension (L3) 4+ Good+ Left Flexion (S2) 3- Fair- Extension (L3) 4+ Good+ Comments Pain with resisted flexion Ankle/Foot Strength Ankle and Foot Manual Muscle Testing Right Dorsiflexion (L4) 0 Zero Plantarflexion (S1) 2+ Poor+ Inversion 0 Zero Eversion (S1) 0 Zero Left Dorsiflexion (L4) 0 Zero Plantarflexion (S1) 1 Trace Inversion 0 Zero Eversion (S1) 0 Zero PT-OP-Q Treatments Start: 12/14/21 17:57 Freq: Status: Active Protocol: Document 05/31/22 14:30 DCW (Rec: 05/31/22 15:14 DCW [id number]) Therapeutic Exercises Standing Exercises Hamstring Curls Standing Exercise Name HS Curls Side bilateral Equipment Used // bars Hip Extension Standing Exercise Name Hip Extension Side bilateral Equipment Used // bars Gait Training Gait Activity FWW Description Fwd amb /c FWW Device Used Bariactric FWW Level of Assistance CGA Comments 70' x1, 15' x1 /c FWW Stance Description Double leg stance /s UE support Device Used // bars with FWW Comments WBOS, Stride stance PT-OP-T Assessment and Plan Start: 12/14/21 17:57 Freq: Status: Active Protocol: Document 05/31/22 14:30 DCW (Rec: 05/31/22 15:14 DCW [id number]) Physical Therapy Assessment Impairments Impairments Activity Tolerance,Balance, Edema,Functional Activities, Functional Mobility,Gait,ROM, Sensation,Strength,Tone, Transfers Goals Three Impairment Pt unable to propel himself well in w/c due to severely limited R UE ROM Senior Care Goal (LTG) Pt to improve right shoulder ROM to 100? flexion and abduction and increase IR to reach back to at least his left SI area in order to better propel his wheelchair independently. LTG Duration 06/15/22 Two Impairment Pt unable to step inside // bars due to severe ankle weakness and neuropath Maintenance Data Analyst Goal (LTG) Pt to ambulate 50' using least restrictive AD CGA while wearing appropriate AFOs to limit impact of foot drop to allow him to be more functionally mobile at home, including getting to the bathroom. LTG Duration 06/15/22 One Impairment Pt does not have an appropriate home exercise program Short Term Goal (STG) Pt to be independent and compliant with an appropriate HEP STG Duration 05/18/22 Progress Towards Goals Progress Towards Goals Slow Progress due to Medical Issues Assessment Summary Assessment Pt again very fatigued, limited gait distance due to legs and arms tiring out. Pt admits he hasn't been sleeping well due to GI complaints after being put on antibiotics for his UTI. Physical Therapy Plan Frequency and Duration Frequency of Treatment 2x/Week Plan of Care Start Date 03/17/22 Plan of Care End Date 06/15/22 Therapeutic Interventions Therapeutic Interventions Aquatic Therapy,Balance Training,Coordination Training ,Gait Training,Home Exercise Program,Lymphedema Management, Manual Therapy,Neuromuscular Re-education,Orthotic/ Prosthetic Management,Patient/ Caregiver Education,Self-Care/ Home Management,Soft Tissue Mobilization,Therapeutic Activities,Therapeutic Exercises,Wheelchair Management Modalities Cold Pack/Ice Massage,Electric Stimulation,Hot Packs, Ultrasound Next Visit Focus/Plan Next Note Type Treatment Note Next Visit Plan Work toward vehicle transfers, Amb FWW outside of // bars, activity tolerance, sit<-> stand, LE strengthening, UE ROM.
--- NOTE | 2022-06-07 14:28 | PT.OTN ---
Current Diagnoses Muscle weakness (generalized) (06/07/22) Unspecified abnormalities of gait and mobility (06/07/22) Other symptoms and signs involving the musculoskeletal system (06/07/22) Other fatigue (06/07/22) Other reduced mobility (06/07/22) Physical Therapy Treatment Note PT-OP-A Visit Information Start: 12/14/21 17:57 Freq: Status: Active Protocol: Document 06/07/22 13:45 DCW (Rec: 06/07/22 14:28 DCW [id number]) Out-Patient Physical Therapy Visit Information Visit Information Visit Type Treatment Note Visit Start Time 13:45 Visit Stop Time 14:30 Total Visit Minutes 45 Visit Number 43 Number of PHOTOGRAPHER'S ASSISTANT Visits 0 Evaluation Information Evaluation Date 12/14/21 PT-OP-B Current Condition Start: 12/14/21 17:57 Freq: Status: Active Protocol: Document 12/14/21 16:00 DCW (Rec: 12/14/21 18:10 DCW [id number]) Current Condition History of Current Condition Onset Date February, Current Complaints Physical debility, deconditioning, limited mobility, weakness History of Current Condition Pt is a 71 year old male presenting with a very complicated medical history. Pt was vacationing in [place] in February,, when he was hospitalized with a bacterial respiratory infection. He was there for two weeks, and then airlifted to [facility] in [place], where he remained for 90 days, including a long stay on a respirator. He was released from [facility] on May 17, 2021 and sent to a rehab facility in [place] until October 06, 2021, and then finally released home. Pt had home health PT for a few weeks, but they stopped coming after pt developed pressure ulcers. Pt is now healed, and feeling improved enough to begin outpatient therapy. Pt is dramatically deconditioned, limited to w/c mobility, and only uses a FWW and Mod Ax1 to stand for 1-2 minutes at a time. Pt complains of ongoing neuropathy and foot drop, both of which began during his hospital stay. is primary caregiver, but they do have an additional caregiver come for four hours a day. They have purchased a recumbent elliptical for exercise, and pt has improved from using it on level 0 for 5 minutes to level 8 for an hour or more. Pt notes that he has been trying to get a prescription for AFOs to help with his drop foot, as he is unable to take a step due to 0/5 ankle weakness. Able to slowly mobilize himself in his manual wheelchair, but unable to propell himself with his LEs. Treatment Goals Patient/Caregiver Goals Pt wants to be able to get up and take a few steps. Personal Factors Other Personal Factors That May Effect Obesity, limited R shoulder Therapy/Recovery mobility, severe ankle weakness/drop foot, Hx PE, lymphedema, neuropathy PT-OP-C Subjective Start: 12/14/21 17:57 Freq: Status: Active Protocol: Document 06/07/22 13:45 DCW (Rec: 06/07/22 14:28 DCW [id number]) OP-PT Subjective Patient Comments Patient Comments Pt once again having some pulmonary issues, admits his O2 sat this morning was down around 92% just lying in bed. Measured today at start of today's session at 96%. PT-OP-G Mobility & Gait Start: 12/14/21 17:57 Freq: Status: Active Protocol: Document 03/17/22 14:30 DCW (Rec: 03/17/22 15:00 DCW [id number]) OP Mobility Evaluation Transfers Sit to Stand Pt able to sit->stand from w/c Min Ax1 using UE assist on // bars. Pt requires Mod Ax2 at home with and caregiver holding FWW stable so he can pull himself up. Wheelchair Management Type of Wheelchair Manual Assessment Details Pt showing increased use of UEs while propelling wheelchair, although still very slow speed. OP Gait Assessment Comments Gait Comments FWW SBA 40', decreased foot clearance, decreased spenser, heavily relies on UE support. Struggles with turning FWW, requires very wide turning radius. PT-OP-K Range of Motion Start: 12/14/21 17:57 Freq: Status: Active Protocol: Document 03/17/22 14:30 DCW (Rec: 03/17/22 15:00 DCW [id number]) Shoulder Goniometric Range of Motion Shoulder Right Active Shoulder ROM WFL No Testing Position Sitting Flexion 78 Abduction 86 Internal Rotation Behind Back (text) R PSIS PT-OP-M Strength Start: 12/14/21 17:57 Freq: Status: Active Protocol: Document 03/17/22 14:30 DCW (Rec: 03/17/22 15:00 DCW [id number]) Hip Strength Hip Manual Muscle Testing Right Flexion (L2) 3- Fair- Abduction 4- Good- Adduction 4- Good- Left Flexion (L2) 2 Poor Abduction 4- Good- Adduction 4- Good- Knee Strength Knee Manual Muscle Testing Right Flexion (S2) 2+ Poor+ Extension (L3) 4+ Good+ Left Flexion (S2) 3- Fair- Extension (L3) 4+ Good+ Comments Pain with resisted flexion Ankle/Foot Strength Ankle and Foot Manual Muscle Testing Right Dorsiflexion (L4) 0 Zero Plantarflexion (S1) 2+ Poor+ Inversion 0 Zero Eversion (S1) 0 Zero Left Dorsiflexion (L4) 0 Zero Plantarflexion (S1) 1 Trace Inversion 0 Zero Eversion (S1) 0 Zero PT-OP-Q Treatments Start: 12/14/21 17:57 Freq: Status: Active Protocol: Document 06/07/22 13:45 DCW (Rec: 06/07/22 14:28 DCW [id number]) Therapeutic Exercises Sitting Exercises Chest Press Sitting Exercise Name UE Chest Press /c PVC Resistance 10# Reps/Minutes x10 UE PNF Sitting Exercise Name PNF B UE Lift Resistance 6.6# ball Reps/Minutes x10 Standing Exercises Hip Abduction Standing Exercise Name Hip Abduction Side bilateral Resistance Yellow Equipment Used // bars Hamstring Curls Standing Exercise Name HS Curls Side bilateral Equipment Used // bars Gait Training Gait Activity FWW Description Fwd amb /c FWW Device Used Bariactric FWW Level of Assistance CGA Comments 70' x1 /c FWW, O2 dropped to 90% PT-OP-T Assessment and Plan Start: 12/14/21 17:57 Freq: Status: Active Protocol: Document 06/07/22 13:45 DCW (Rec: 06/07/22 14:28 DCW [id number]) Physical Therapy Assessment Impairments Impairments Activity Tolerance,Balance, Edema,Functional Activities, Functional Mobility,Gait,ROM, Sensation,Strength,Tone, Transfers Goals Three Impairment Pt unable to propel himself well in w/c due to severely limited R UE ROM Textile Colorist Formulator Goal (LTG) Pt to improve right shoulder ROM to 100? flexion and abduction and increase IR to reach back to at least his left SI area in order to better propel his wheelchair independently. LTG Duration 06/15/22 Two Impairment Pt unable to step inside // bars due to severe ankle weakness and neuropath Fdc Goal (LTG) Pt to ambulate 50' using least restrictive AD CGA while wearing appropriate AFOs to limit impact of foot drop to allow him to be more functionally mobile at home, including getting to the bathroom. LTG Duration 06/15/22 One Impairment Pt does not have an appropriate home exercise program Short Term Goal (STG) Pt to be independent and compliant with an appropriate HEP STG Duration 05/18/22 Progress Towards Goals Progress Towards Goals Slow Progress due to Medical Issues Assessment Summary Assessment O2 sat repeatedly fell to ~90% with any activity, pt required extended rest breaks after each exercise today, significantly limited participation in therapy today . Physical Therapy Plan Frequency and Duration Frequency of Treatment 2x/Week Plan of Care Start Date 03/17/22 Plan of Care End Date 06/15/22 Therapeutic Interventions Therapeutic Interventions Aquatic Therapy,Balance Training,Coordination Training ,Gait Training,Home Exercise Program,Lymphedema Management, Manual Therapy,Neuromuscular Re-education,Orthotic/ Prosthetic Management,Patient/ Caregiver Education,Self-Care/ Home Management,Soft Tissue Mobilization,Therapeutic Activities,Therapeutic Exercises,Wheelchair Management Modalities Cold Pack/Ice Massage,Electric Stimulation,Hot Packs, Ultrasound Next Visit Focus/Plan Next Note Type Treatment Note Next Visit Plan Work toward vehicle transfers, Amb FWW outside of // bars, activity tolerance, sit<-> stand, LE strengthening, UE ROM.
--- NOTE | 2022-06-17 08:45 | PT.OPDS ---
Current Diagnoses Muscle weakness (generalized) (06/07/22) Unspecified abnormalities of gait and mobility (06/07/22) Other symptoms and signs involving the musculoskeletal system (06/07/22) Other fatigue (06/07/22) Other reduced mobility (06/07/22) Visit Care Team Role Provider Type Brandon Houston MD Attending Provider Physician Family Provider Primary Care Provider Referring Provider Specialty: Internal Medicine Address: [address] [place] [address], [address], [facility] Email: [email or web address] Visit Number Visit Number 43 Discharge Summary PT-OP-B Current Condition Start: 12/14/21 17:57 Freq: Status: Active Protocol: Document 12/14/21 16:00 DCW (Rec: 12/14/21 18:10 DCW [id number]) Current Condition History of Current Condition Onset Date February, Current Complaints Physical debility, deconditioning, limited mobility, weakness History of Current Condition Pt is a 71 year old male presenting with a very complicated medical history. Pt was vacationing in [place] in February,, when he was hospitalized with a bacterial respiratory infection. He was there for two weeks, and then airlifted to [facility] in [place], where he remained for 90 days, including a long stay on a respirator. He was released from [facility] on May 17, 2021 and sent to a rehab facility in [place] until October 06, 2021, and then finally released home. Pt had home health PT for a few weeks, but they stopped coming after pt developed pressure ulcers. Pt is now healed, and feeling improved enough to begin outpatient therapy. Pt is dramatically deconditioned, limited to w/c mobility, and only uses a FWW and Mod Ax1 to stand for 1-2 minutes at a time. Pt complains of ongoing neuropathy and foot drop, both of which began during his hospital stay. is primary caregiver, but they do have an additional caregiver come for four hours a day. They have purchased a recumbent elliptical for exercise, and pt has improved from using it on level 0 for 5 minutes to level 8 for an hour or more. Pt notes that he has been trying to get a prescription for AFOs to help with his drop foot, as he is unable to take a step due to 0/5 ankle weakness. Able to slowly mobilize himself in his manual wheelchair, but unable to propell himself with his LEs. Treatment Goals Patient/Caregiver Goals Pt wants to be able to get up and take a few steps. Personal Factors Other Personal Factors That May Effect Obesity, limited R shoulder Therapy/Recovery mobility, severe ankle weakness/drop foot, Hx PE, lymphedema, neuropathy PT-OP-C Subjective Start: 12/14/21 17:57 Freq: Status: Active Protocol: Document 06/07/22 13:45 DCW (Rec: 06/07/22 14:28 DCW [id number]) OP-PT Subjective Patient Comments Patient Comments Pt once again having some pulmonary issues, admits his O2 sat this morning was down around 92% just lying in bed. Measured today at start of today's session at 96%. PT-OP-G Mobility & Gait Start: 12/14/21 17:57 Freq: Status: Active Protocol: Document 03/17/22 14:30 DCW (Rec: 03/17/22 15:00 DCW [id number]) OP Mobility Evaluation Transfers Sit to Stand Pt able to sit->stand from w/c Min Ax1 using UE assist on // bars. Pt requires Mod Ax2 at home with and caregiver holding FWW stable so he can pull himself up. Wheelchair Management Type of Wheelchair Manual Assessment Details Pt showing increased use of UEs while propelling wheelchair, although still very slow speed. OP Gait Assessment Comments Gait Comments FWW SBA 40', decreased foot clearance, decreased spenser, heavily relies on UE support. Struggles with turning FWW, requires very wide turning radius. PT-OP-K Range of Motion Start: 12/14/21 17:57 Freq: Status: Active Protocol: Document 03/17/22 14:30 DCW (Rec: 03/17/22 15:00 DCW [id number]) Shoulder Goniometric Range of Motion Shoulder Right Active Shoulder ROM WFL No Testing Position Sitting Flexion 78 Abduction 86 Internal Rotation Behind Back (text) R PSIS PT-OP-M Strength Start: 12/14/21 17:57 Freq: Status: Active Protocol: Document 03/17/22 14:30 DCW (Rec: 03/17/22 15:00 DCW [id number]) Hip Strength Hip Manual Muscle Testing Right Flexion (L2) 3- Fair- Abduction 4- Good- Adduction 4- Good- Left Flexion (L2) 2 Poor Abduction 4- Good- Adduction 4- Good- Knee Strength Knee Manual Muscle Testing Right Flexion (S2) 2+ Poor+ Extension (L3) 4+ Good+ Left Flexion (S2) 3- Fair- Extension (L3) 4+ Good+ Comments Pain with resisted flexion Ankle/Foot Strength Ankle and Foot Manual Muscle Testing Right Dorsiflexion (L4) 0 Zero Plantarflexion (S1) 2+ Poor+ Inversion 0 Zero Eversion (S1) 0 Zero Left Dorsiflexion (L4) 0 Zero Plantarflexion (S1) 1 Trace Inversion 0 Zero Eversion (S1) 0 Zero PT-OP-T Assessment and Plan Start: 12/14/21 17:57 Freq: Status: Active Protocol: Document 06/17/22 08:43 DCW (Rec: 06/17/22 08:45 DC [id number]) Physical Therapy Assessment Assessment Summary Assessment Pt has recently undergone a large change in medical status , 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 Pt will be undergoing Cardiac Rehab, will be discharged from skilled PT at this time. Pt will require a new referral in order to return to PT. Physical Therapy Plan Discharge Physical Therapy Discharge Reasons Change in Medical Status
== END 2022-06-20 16:10 | disposition home or self-care (01) ==
LOC: PHYS 13:45
PROVIDERS: Family Provider Student in an Organized Health Care Education/Training Program; PCP Student in an Organized Health Care Education/Training Program; Referring Provider Student in an Organized Health Care Education/Training Program; Visit Provider Student in an Organized Health Care Education/Training Program
DX: R29.898 Other symptoms and signs involving the musculoskeletal system (principal); M62.81 Muscle weakness (generalized); Z74.09 Other reduced mobility; R53.83 Other fatigue; R26.9 Unspecified abnormalities of gait and mobility
CPT/HCPCS: 97110; 97112; 97116; 97140; 97163; 97530; 97535

== ENCOUNTER 2022-06-10 07:42 | Day surgery (SDC) | payer MEDICARE, SELFPAY ==
[2022-03-10 23:31] VITALS: BMI 40.0
[2022-03-11 12:11] VITALS: PULSE 64; RESP 22; O2SAT 98
[2022-06-08 08:15] VITALS: BMI 54.2
== END 2022-06-10 07:45 | disposition home or self-care (01) ==
LOC: OR 07:42
PROVIDERS: Family Provider Student in an Organized Health Care Education/Training Program; PCP Student in an Organized Health Care Education/Training Program; Referring Provider Orthopaedic Surgery Foot and Ankle Surgery; Visit Provider Orthopaedic Surgery Foot and Ankle Surgery
DX: M20.5X2 Other deformities of toe(s) (acquired), left foot (principal); M20.5X1 Other deformities of toe(s) (acquired), right foot; E66.01 Morbid (severe) obesity due to excess calories; Z53.09 Procedure and treatment not carried out because of other contraindication

== ENCOUNTER 2022-08-12 06:33 | Day surgery (SDC) | payer MEDICARE, SELFPAY ==
[2022-03-10 23:31] VITALS: BMI 40.0
[2022-03-11 12:11] VITALS: PULSE 64; RESP 22; O2SAT 98
[2022-08-09 10:27] VITALS: BMI 54.2
[2022-08-12] VITALS (7 sets, daily range): BP systolic 106–131; BP diastolic 60–74; PULSE 64–75; RESP 12–16; TEMP 36.2–36.4; O2SAT 95–98; BMI 54.2
[2022-08-12] MEDS: ACETAMINOPHEN 325 MG TABLET 975 MG PO (07:13)
--- NOTE | 2022-08-12 07:19 | SUR.OPER ---
Supine on padded OR bed, head on pillow, arms secured on padded arm boards at <90 degrees abduction, legs uncrossed, safety belt at thigh, tape over blanket over lower legs.
[2022-08-12] MEDS: LACTATED RINGERS 1,000 ML 42 ML IV (07:22)
--- NOTE | 2022-08-12 07:22 | PM.PREOP ---
Pre-operative Note Interval Note History & Physical reviewed/Exam performed by Physician: Yes Changes to H&P: No
[2022-08-12] MEDS: BUPIVACAINE 0.25% (PF) 30 ML, EPINEPHrine 0.15 MG INJ (08:43)
--- NOTE | 2022-08-12 08:49 | SUR.OPER ---
MAGNET TO [facility]. PRIOR TO PROCEDURE. DRESSING: TALL WALKER BOOT.
--- NOTE | 2022-08-12 10:15 | PM.OP.1 ---
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 He is unable to wear his braces and shoes due to the foot deformities. He is recently undergone pacemaker placement and has been optimized for surgery by his sap abap developer. Been indicated for deformity correction to facilitate brace wear ambulation and reduce the risk for callus and wound formation Surgeon: Davina Lim Click Yes if Unassisted: Yes Anesthesia Type: MAC +/-, Peripheral nerve block and Local Operative Notes Findings: Rigid mallet and clawtoe deformity right forefoot. Great toe mallet toe deformity corrected with IP joint fusion. Second 3rd and 4th rigid hammertoes and claw toe deformities corrected with the IP and PIP fusions. Fifth toe claw toe corrected with flexor tenotomy Closure Type: primary Specimen(s): none sent Prosthetic devices, grafts, tissues, transplants, or devices: Arthrex 2.5 micro compression full threaded screws 32 mm x 1, 36 mm x 1, 38 mm x 1, Arthrex 4.0 standard compression fully-threaded screw 40 mm x 1 Estimated Blood Loss (mL): 5 Tourniquet time (min): 63 Procedure in detail: Patient was seen in the preoperative area the site of surgery was marked informed consent confirmed. The patient is brought to the operating room by the anesthesia team. A peripheral nerve block was placed for anesthesia and this was supplemented with a MAC anesthesia. All bony prominences well padded. A well-padded calf tourniquet was placed. An ipsilateral thigh bump was placed. The right lower extremity was prepped and draped in the standard sterile fashion. A formal time-out procedure was performed confirming the patient's side and site of surgery administration of appropriate preoperative antibiotics which was 3 g of Ancef. Attention turned to the right lower extremity Esmarch was used for exsanguination tourniquet raised on the calf to 250 mmHg. Attention turned to the toe deformities. The mini C-arm was brought in the level of the IP joint was identified. A blade was used to incise dorsally over the IP joint through the extensor mechanism next the Arthrex 2.9 wedge bur was used to remove the cartilage from the distal and proximal phalanx. Once this was completed the toe was aligned and the guidewire for the 4.0 screw was advanced 1st proximally and over-drilled and then distally and overdrilled. A screw was measured and a 40 mm 4.0 screw was selected and advanced maintaining compression alignment and rotation. Once this was completed attention was turned to the 2nd toe and the 2nd claw toe was corrected the similar fashion the incision was made over the PIP joint through the extensor mechanism making room for the micro bur which was then used to debride the PIP joint. The guidewire was placed and a 38 mm 2.5 micro compression screw was advanced from the tip of the toe through the distal middle and proximal phalanx. Same procedure was performed for the 3rd 4th toes same fashion. The 5th toe was examined and was Satnam with a tight flexor but did not require rigid fixation. Flexor tenotomy was made through a plantar incision at the level of the proximal phalanx completing the percutaneous tenotomy and improving alignment of the 5th toe. Once this was completed multiplanar intraoperative fluoroscopy confirmed appropriate placement of the screws in bone and correction of the deformities. The wounds were irrigated and closed with nylon suture. The 5th toe incision was closed with Monocryl. A sterile dressing was placed with Xeroform gauze and Amanda wrap and an Alonzo wrap. Drapes removed patient was woken from anesthesia and taken to recovery room in good condition. There no immediate complications from this procedure. Counts were correct. Complications: none Post-operative Condition: stable Disposition: PACU Plan for aftercare: Weightbear as tolerated in the boot. Keep dressing clean dry and intact. Focus on elevation and taking it easy over the next week or 2 to help prevent swelling. Return in 2 weeks for suture removal.
[2022-08-12] MEDS: OXYCODONE IR 5 MG TABLET PO (10:45)
== END 2022-08-12 11:34 | disposition home or self-care (01) ==
PROVIDERS: Family Provider Student in an Organized Health Care Education/Training Program; PCP Student in an Organized Health Care Education/Training Program; Referring Provider Orthopaedic Surgery Foot and Ankle Surgery; Visit Provider Orthopaedic Surgery Foot and Ankle Surgery
PROC: (CPT 28755; principal; 2022-08-12 07:45)
DX: M20.5X1 Other deformities of toe(s) (acquired), right foot (principal); M21.371 Foot drop, right foot; E66.01 Morbid (severe) obesity due to excess calories; Z95.0 Presence of cardiac pacemaker; G47.33 Obstructive sleep apnea (adult) (pediatric); I11.0 Hypertensive heart disease with heart failure; I50.9 Heart failure, unspecified; I48.91 Unspecified atrial fibrillation; Z86.718 Personal history of other venous thrombosis and embolism; Z79.01 Long term (current) use of anticoagulants; Z68.41 Body mass index [BMI] 40.0-44.9, adult; G89.18 Other acute postprocedural pain
CPT/HCPCS: 28755; 28285 ×3; 28232; 64450; J0171; J0330; J1100; J1885; J2405; J2704; J3010

== ENCOUNTER → 2022-09-19 15:23 | Outpatient (CLI) | payer MEDICARE, SELFPAY ==
[2022-03-10 23:31] VITALS: BMI 40.0
[2022-03-11 12:11] VITALS: PULSE 64; RESP 22; O2SAT 98
[2022-09-20 05:12] LABS: x Labcorp Estim. Avg Glu (eAG) 100 mg/dL (.); x Labcorp Hemoglobin A1c 5.1 % (4.8-5.6)
== END ==
PROVIDERS: Family Provider Student in an Organized Health Care Education/Training Program; PCP Pediatrics; Referring Provider Pediatrics; Visit Provider Pediatrics
DX: R63.1 Polydipsia (principal)
CPT/HCPCS: 36415; 83036

== ENCOUNTER → 2022-10-11 14:50 | Outpatient (CLI) | payer MEDICARE, SELFPAY ==
[2022-03-10 23:31] VITALS: BMI 40.0
[2022-03-11 12:11] VITALS: PULSE 64; RESP 22; O2SAT 98
[2022-10-11 15:49] LABS: BUN Creatinine Ratio 24.2 (6-22); Blood Urea Nitrogen 50 mg/dL (9-20); Calcium 9.2 mg/dL (8.4-10.2); Carbon Dioxide 32 mmol/L (22-32); Chloride 100 mmol/L (98-107); Estimated Glomerular Filt Rate 33 mL/min (>60); Glucose 92 mg/dL (80-110); HEMOLYSIS < 15 (0-50); Magnesium 2.4 mg/dL (1.6-2.3); Potassium 4.4 mmol/L (3.4-5.1); Sodium 140 mmol/L (137-145)
== END ==
PROVIDERS: Family Provider Student in an Organized Health Care Education/Training Program; PCP Pediatrics; Referring Provider Internal Medicine Cardiovascular Disease; Visit Provider Internal Medicine Cardiovascular Disease
DX: I50.20 Unspecified systolic (congestive) heart failure (principal)
CPT/HCPCS: 36415; 80048; 83735

== ENCOUNTER → 2022-10-17 06:46 | Outpatient (CLI) | payer MEDICARE, SELFPAY ==
[2022-03-10 23:31] VITALS: BMI 40.0
[2022-03-11 12:11] VITALS: PULSE 64; RESP 22; O2SAT 98
--- NOTE | 2022-10-17 06:47 | DI.ECHO.S_ITS ---
[facility]---------+ [facility] +---------+ : : [address] [place] [address] : : : : [id number] : : : : Phone: [phone]+ Echocardiogram Report + + :Name: MARIOLA DUCKWORTH Study Date: 10/17/2022 Height: 72 in : :[facility] ReadingLocation: Weight: 298 lb : : Gender: Male BSA: 2.5 m2 : :: 1950 Age: 72 yrs BP: 116/74 mmHg: :Reason For Study: SYSTOLIC HEART FAILURE : :Ordering Physician: RUSS, : :MALA Performed By: Carolyne Fowler : :Referring: MALA SOLANO : + + Interpretation Summary The left ventricle is moderately dilated. Left ventricular ejection fraction is estimated to be 25 +/- 5%. Previously,Left ventricular ejection fraction is estimated to be 35 +/- 5%. There is severe global hypokinesis of the left ventricle. Compared to the prior exam, the left ventricular function is reduced. The right ventricle is severely dilated. Right ventricular systolic function is moderately reduced. No significant change. Tented mitral leaflets. There is moderate to severe mitral regurgitation. Previously moderate. Compared to the prior echo study, there has been an increase in the severity of mitral regurgitation. The tricuspid annulus is dilated. There is severe tricuspid regurgitation. Previously moderate TR. Compared to the prior echo exam, there has been an increase in TR severity. The right ventricular systolic pressure is estimated to be at least 50 mmHg based on an estimated right atrial pressure of 15 mm Hg. Previously 42 mmHg. Compared to the prior echo exam, there has been an increase in the severity of pulmonary hypertension. There is a moderate left-sided pleural effusion. Previously large pleural effusion. Procedure: A two-dimensional transthoracic echocardiogram with color flow and Doppler was performed. Comparison is made with the echocardiogram of 03/11/2022. The study quality was technically difficult. A contrast injection of Definity was performed to improve assessment of LV function. The heart rate ranged between 70-96 bpm during the study. The patient has a paced rhythm. Left Ventricle: The left ventricle is moderately dilated. Left ventricular wall thickness is at the upper limits of normal. Left ventricular ejection fraction is estimated to be 25 +/- 5%. Compared to the prior exam, the left ventricular function is reduced. There is severe global hypokinesis of the left ventricle. Diastolic function could not be accurately assessed due to paced rhythm. E/E' med: 19.4. Right Ventricle: There is a pacemaker lead in the right ventricle. The right ventricle is severely dilated. This is unchanged compared to the previous study. Right ventricular systolic function is moderately reduced. There has been no significant change since the previous study. Atria: The left atrium is severely dilated. There has been no significant change since the previous study. The right atrium is severely dilated. There is no Doppler evidence for an interatrial shunt. Mitral Valve: The mitral valve leaflets are mildly calcified. There is mild mitral annular calcification. Tented mitral leaflets. There is moderate to severe mitral regurgitation. Compared to the prior echo study, there has been an increase in the severity of mitral regurgitation. Aortic Valve: The aortic valve is trileaflet. There is mild aortic valve sclerosis. There is no aortic valve stenosis. No aortic regurgitation is present. Tricuspid Valve: The tricuspid valve is not well visualized. The tricuspid annulus is dilated. There is severe tricuspid regurgitation. The right ventricular systolic pressure is estimated to be at least 50 mmHg based on an estimated right atrial pressure of 15 mm Hg. Compared to the prior echo exam, there has been an increase in TR severity. Compared to the prior echo exam, there has been an increase in the severity of pulmonary hypertension. Pulmonic Valve: The pulmonic valve is not well seen, but is grossly normal. There is trace pulmonic regurgitation. Great Vessels: The aortic root is normal size. The ascending aorta is at the upper limits of normal in size. The IVC is dilated (diameter is greater than 2.1 cm) and it collapses less than 50% with a sniff. This suggests a high right atrial pressure of 15 mm Hg. Pericardium/ Pleura There is no pericardial effusion. There is a moderate left-sided pleural effusion. MMode/2D Measurements & Calculations LVIDd: 6.5 cm LVOT diam: 2.3 cm LVIDs: 5.3 cm Ao root diam: 3.5 cm FS: 18.6 % asc Aorta Diam: 3.9 cm EPSS: 1.9 cm Ao Arch Diam (Prox Trans): 4.0 cm IVSd: 0.91 cm LVPWd: 1.1 cm LV marie. diameter/BSA (cm/m^2): 2.6 LV sys. diameter/BSA (cm/m^2): 2.1 LA A2 area: 51.8 cm2 RA long axis: 7.5 cm LA A4 area: 42.5 cm2 RA area: 35.2 cm2 LA length (vol): 7.6 cm RA vol: 141.1 ml LA vol: 245.5 ml RA : 55.9 ml/m2 LA vol index: 97.3 ml/m2 IVC diam: 3.6 cm RVD1 (basal): 6.4 cm RVD2 (mid): 6.2 cm TAPSE: 1.3 cm Doppler Measurements & Calculations Ao V2 max: 165.0 cm/sec LVOT Max Christo: 105.4 cm/sec Ao V2 mean: 119.3 cm/sec LV V1 max P.4 mmHg Ao max P.9 mmHg LV V1 VTI: 17.8 cm Ao mean P.2 mmHg HAYLEE(I,D): 2.4 cm2 Ao V2 VTI: 31.3 cm HAYLEE(V,D): 2.7 cm2 sev ratio: 0.57 HAYLEE indexed to BSA (cm^2/m^2): 0.95 MV E max christo: 101.7 cm/sec TR max christo: 296.8 cm/sec MV A max christo: 1.2 cm/sec TR max P.2 mmHg MV E/A: 83.9 PA pr(Accel): 32.8 mmHg Med Peak E' Christo: 5.3 cm/sec E/E' med: 19.4 Lat Peak E' Christo: 10.9 cm/sec E/E' lat: 9.3 E/e' average: 14.3 MV dec time: 0.16 sec SV(LVOT): 75.3 ml Reading Physician:03:55 PM
== END ==
PROVIDERS: PCP Pediatrics; Referring Provider Internal Medicine Cardiovascular Disease; Visit Provider Internal Medicine Cardiovascular Disease
DX: I08.3 Combined rheumatic disorders of mitral, aortic and tricuspid valves (principal); I50.20 Unspecified systolic (congestive) heart failure; J90 Pleural effusion, not elsewhere classified
CPT/HCPCS: C8929; Q9957

== ENCOUNTER → 2022-10-20 14:51 | Outpatient (CLI) | payer MEDICARE, SELFPAY ==
[2022-03-10 23:31] VITALS: BMI 40.0
[2022-03-11 12:11] VITALS: PULSE 64; RESP 22; O2SAT 98
[2022-10-20 22:02] LABS: Blood Urea Nitrogen 40 mg/dL (9-20); Calcium 9.2 mg/dL (8.4-10.2); Carbon Dioxide 31 mmol/L (22-32); Chloride 102 mmol/L (98-107); Estimated Glomerular Filt Rate 43 mL/min (>60); Glucose 102 mg/dL (80-110); HEMOLYSIS < 15 (0-50); Sodium 142 mmol/L (137-145)
== END ==
PROVIDERS: PCP Pediatrics; Referring Provider Internal Medicine Cardiovascular Disease; Visit Provider Internal Medicine Cardiovascular Disease
DX: I27.20 Pulmonary hypertension, unspecified (principal)
CPT/HCPCS: 36415; 80048

== ENCOUNTER → 2022-10-31 14:48 | Outpatient (CLI) | payer MEDICARE, SELFPAY ==
[2022-03-10 23:31] VITALS: BMI 40.0
[2022-03-11 12:11] VITALS: PULSE 64; RESP 22; O2SAT 98
[2022-10-31 15:33] LABS: BUN Creatinine Ratio 24.2 (6-22); Blood Urea Nitrogen 37 mg/dL (9-20); Calcium 9.4 mg/dL (8.4-10.2); Carbon Dioxide 30 mmol/L (22-32); Chloride 104 mmol/L (98-107); Estimated Glomerular Filt Rate 47 mL/min (>60); Glucose 93 mg/dL (80-110); HEMOLYSIS < 15 (0-50); Potassium 4.3 mmol/L (3.4-5.1); Sodium 141 mmol/L (137-145)
== END ==
PROVIDERS: PCP Pediatrics; Referring Provider Internal Medicine Cardiovascular Disease; Visit Provider Internal Medicine Cardiovascular Disease
DX: I50.20 Unspecified systolic (congestive) heart failure (principal)
CPT/HCPCS: 36415; 80048

== ENCOUNTER → 2022-12-08 13:15 | Outpatient (CLI) | payer MEDICARE, SELFPAY ==
[2022-03-10 23:31] VITALS: BMI 40.0
[2022-03-11 12:11] VITALS: PULSE 64; RESP 22; O2SAT 98
[2022-12-08 14:54] LABS: BUN Creatinine Ratio 35.2 (6-22); Blood Urea Nitrogen 62 mg/dL (9-20); Calcium 9.7 mg/dL (8.4-10.2); Carbon Dioxide 30 mmol/L (22-32); Chloride 104 mmol/L (98-107); Estimated Glomerular Filt Rate 40 mL/min (>60); Glucose 85 mg/dL (80-110); HEMOLYSIS < 15 (0-50); Potassium 4.2 mmol/L (3.4-5.1); Sodium 142 mmol/L (137-145)
== END ==
PROVIDERS: PCP Pediatrics; Referring Provider Internal Medicine Cardiovascular Disease; Visit Provider Internal Medicine Cardiovascular Disease
DX: N17.9 Acute kidney failure, unspecified (principal); N28.9 Disorder of kidney and ureter, unspecified; I48.11 Longstanding persistent atrial fibrillation
CPT/HCPCS: 36415; 80048

== ENCOUNTER 2023-01-16 10:46 | Emergency (ER) | payer MEDICARE, SELFPAY ==
[2022-03-10 23:31] VITALS: BMI 40.0
[2022-03-11 12:11] VITALS: PULSE 64; RESP 22; O2SAT 98
[2023-01-16] VITALS (121 sets, daily range): BP systolic 60–149; BP diastolic 28–81; PULSE 68–75; RESP 12–36; TEMP 35.6–37.3; O2SAT 93–99
[2023-01-16] MEDS: SODIUM CHLORIDE 0.9% 1,000 ML 1000 ML IV ×3 (10:50→12:18)
--- NOTE | 2023-01-16 11:00 | DI.RAD.S_ITS ---
PROCEDURE: XR CHEST 1V INDICATIONS: suspected sepsis TECHNIQUE: One view of the chest was acquired. COMPARISON: [facility], CR, XR CHEST 2V, 05/23/2022, 15:16. FINDINGS: Surgical changes and devices: Pacemaker Lungs and pleura: Lungs are clear. No pleural effusions or pneumothorax. Mediastinum: Mediastinal contours appear normal. Cardiomegaly. Bones and chest wall: No suspicious bony lesions. Overlying soft tissues appear unremarkable. IMPRESSION: Cardiomegaly. No evidence acute pulmonary process. Dictated by: Wiliam Casper M.D. on 01/16/2023 at 11:51 Approved by: Wiliam Casper M.D. on 01/16/2023 at 11:52
[2023-01-16 11:27] LABS: INR 1.5 (0.9-1.3); Prothrombin Time 16.8 SECONDS (10.1-12.7)
[2023-01-16 11:29] LABS: COVID19 -Nasal RAPID Negative (Negative)
[2023-01-16 11:30] LABS: PTT Partial Thromboplastin Tim 35 SECONDS (26-36)
[2023-01-16 11:32] LABS: Add Manual Diff / Slide Review NO; Basophils Absolute Auto 0 /uL (0-100); Basophils Percent Auto 0.6 % (0-2); Eosinophils Absolute Auto 200 /uL (0-450); Eosinophils Percent Auto 4.1 % (2-4); Hematocrit 32.2 % (41-53); Hemoglobin 10.9 g/dL (13.5-17.5); Lactate (Lactic Acid) 3.7 mmol/L (0.7-2.1); Lymphocytes Absolute Auto 800 /uL (1100-4500); Lymphocytes Percent Auto 19.7 % (25-40); Mean Corpuscular HGB Conc 33.8 % (30-36); Mean Corpuscular Hemoglobin 31.7 PG (26-34); Mean Corpuscular Volume 93.9 fL (80-100); Monocytes Absolute Auto 500 /uL (0-900); Monocytes Percent Auto 10.6 % (3-14); Neutrophils Absolute Auto 2800 /uL (1500-7000); Platelet Count 158 X10^3/uL (150-400); Red Blood Cell Count 3.43 X10^6/uL (4.5-5.9); White Blood Cell Count 4.3 X10^3/uL (4.5-11.0)
[2023-01-16 11:33] LABS: Alanine Aminotransferase 32 IU/L (<50); Albumin 4.1 g/dL (3.5-5.0); Albumin Globulin Ratio 1.2 (1.0-2.8); Alkaline Phosphatase 83 U/L (38-126); Aspartate Aminotransferase 43 IU/L (17-59); BUN Creatinine Ratio 33.7 (6-22); Bilirubin Total 0.6 mg/dL (0.2-1.3); Blood Urea Nitrogen 64 mg/dL (9-20); Calcium 10.1 mg/dL (8.4-10.2); Carbon Dioxide 22 mmol/L (22-32); Chloride 110 mmol/L (98-107); Creatine Kinase 52 U/L (55-170); Estimated Glomerular Filt Rate 37 mL/min (>60); Globulin 3.4 g/dL (1.7-4.1); Glucose 118 mg/dL (80-110); HEMOLYSIS 25 (0-50); Lipase 102 U/L (23-300); Potassium 4.5 mmol/L (3.4-5.1); Sodium 143 mmol/L (137-145); Total Protein 7.5 g/dL (6.3-8.2)
[2023-01-16 11:44] LABS: NT-proBNP (BNP-Adult 18+) 4330 pg/mL (<125); Troponin I 0.041 ng/mL (0.01-0.034)
[2023-01-16 11:49] LABS: Procalcitonin 0.16 ng/mL (<0.5)
--- NOTE | 2023-01-16 11:57 | ED_ITS ---
HPI - Weakness General Chief complaint: Weakness Stated complaint: hypotension Time Seen by Provider: 01/16/23 11:55 Source: patient and EMS Mode of arrival: EMS History of Present Illness HPI Narrative: This is a 72-year-old male anticoagulated on apixaban, history of ICD/defibrillator who had recent 2nd lead placed on 01/08/[address] [facility] patient had complications and had hypotension and issues and was hospitalized for 10 days. states there were fluid issues but he was ultimately discharged home. She states he is had medication changes but not in the last week but did have spironolactone added over the last 1-2 weeks. Patient states he is felt tired and weak the last couple days but did not have any other symptoms he was in the shower patient states no fevers no chills no headache, no chest pain or shortness of breath he denies nausea or vomiting abdominal back or flank pain. Yesterday had episode who is very weak and has some trouble transferring but was brief. He did have some episodes of diarrhea last night several, no black or bloody stools. No constipation. No bright red blood, no melena. He also noted some frequency overnight which was atypical he got up 4 times to urinate. He states he is little bit of dysuria but he normally has dysuria with urination. Patient states his systolic blood pressure is typically 102-103. He notes that he had pacemaker/defibrillator placed back in June there was difficulty with the 2nd lead and was referred to [facility] we had the 2nd lead placed on the or around the 08 of January. He is not had a CABG or other cardiac interventions he has been told he should have some kind of valvular surgery but they are not sure which kind. They are referred to [facility] and Dr. Leos. He does have a Bois D Arc filter in place. He is had prior tonsillectomy denies other surgeries. No known drug allergies. No tobacco, he did have a screwdriver alcoholic drink this morning. He states that is not typical but had not had a drink since he was hospitalized and wanted 1. No illicit drugs. His primary care was Dr. [place]. Dr. Ruiz sees him local for Cardiology and for his interventions he has been going to [facility]. Related Data Home Medications Medication Instructions Recorded Confirmed fluticasone propionate 50 1 spray intranasal BID 10/14/21 08/12/22 mcg/actuation nasal spray,suspension (Flonase Allergy Relief) multivitamin with minerals-folic 1 tab PO DAILY 02/17/22 08/12/22 acid 0.4 mg tablet losartan 25 mg tablet 12.5 mg PO DAILY 08/10/22 08/12/22 pantoprazole 40 mg tablet,delayed 40 mg PO DAILY 08/10/22 08/12/22 release Previous Rx's Medication Instructions Recorded gabapentin 300 mg capsule 300 mg PO QD-BID #180 caps 06/29/22 apixaban 5 mg tablet (Eliquis) See Rx Instructions .Route 07/19/22 .COMPLEX #180 tabs carvedilol 6.25 mg tablet See Rx Instructions .Route 07/19/22 .COMPLEX #180 tabs tamsulosin 0.4 mg capsule 0.8 mg (2 x 0.4 mg) PO DAILY #180 08/10/22 caps torsemide 20 mg tablet 40 mg (2 x 20 mg) PO DAILY #180 08/10/22 tabs Allergies Allergy/AdvReac Type Severity Reaction Status Date / Time latex [LATEX] Allergy Intermediate Verified 01/16/23 11:15 CAT/DOG DANDER Allergy Intermediate WATERY,ITCHY Uncoded 05/23/22 14:40 EYES,COUGHING/SNEEZING FITS DUST MITES Allergy Intermediate WATERY/ITCHY Uncoded 05/23/22 14:40 EYES,COUGH,SNEEZING MULTIPLE FOOD ALLERGIES Allergy Intermediate STOMACH Uncoded 05/23/22 14:40 CRAMPS,DIARRHEA GRASS,T Allergy Unknown WATERY Uncoded 05/23/22 14:40 EYES,COUGHING/SNEEZING Review of Systems Review of Systems ROS Unobtainable: All systems reviewed & are unremarkable except as noted in HPI and below Patient History Medical History Presence of IVC filter Morbid obesity with BMI of 50.0-59.9, adult Pulmonary edema (06/2022) Peripheral neuropathy BPH (benign prostatic hyperplasia) GERD (gastroesophageal reflux disease) Thrombocytopenia Nonischemic cardiomyopathy Severe muscle deconditioning Acute respiratory failure with hypoxia Acute on chronic systolic heart failure Pneumonia Vision disorder Hearing loss Sleep apnea (~1989) Fractures (~1989) Foot pain (~1989) Chronic back pain (~2009) Measles (~1959) Chicken pox (~1959) Irritable bowel syndrome (~2014) Low testosterone (~1989) Deep vein thrombosis (~1989) Atrial fibrillation (~2014) Surgical History AICD (automatic cardioverter/defibrillator) present (06/13/22) Anesthesia History of back surgery History of tonsillectomy History of surgery (~2015) Bois D Arc filter in place (~1992) Social History household members: spouse Smoking Status: Never smoker alcohol intake: current Smoking Status: Never smoker alcohol intake frequency: a few times a month Substance Use Type: does not use Exam Narrative Exam Narrative: GEN: Obese male, alert and oriented x 3, patient appears to be in moderate distress. Patient in Trendelenburg. Has good pink color. HEENT: Atraumatic, pupils are equal round reactive to light, extraocular movements are intact, nares are clear,there is no conjunctival pallor. Throat is clear without any exudates, erythema, tonsillar enlargement or uvular deviation HEART: Regular rate and rhythm without murmur, clicks, rubs. No carotid bruits, pulses are equal in upper and lower extremities. No edema bilateral lower extremities. LUNGS:Lungs clear to auscultation, no wheezes, rales, crackles, chest moves symmetrically, no tachypnea accessory muscle use. ABD:bowel sounds normal, soft, non-tender, no guarding, rebound, rigidity, no masses noted, no hepatosplenomegaly :No CVA tenderness MSCL: Non-tender, no muscle atrophy, muscles strength 5/5 upper and lower extremities, full range of motion, NEURO:CN 2-12 intact, sensation normal Initial Vital Signs Initial Vital Signs: Vital Signs Temperature 97.1 F L 01/16/23 10:50 Pulse Rate 68 01/16/23 10:50 Respiratory Rate 22 01/16/23 10:50 Blood Pressure 80/65 L 01/16/23 10:50 Pulse Oximetry 95 01/16/23 10:50 Oxygen Delivery Method Room Air 01/16/23 10:50 Course Orders Ordered: ED Orders 01/16/23 10:49 Complete Blood Count AUTO DIFF Stat Comprehensive Metabolic Panel Stat ETOH [Ethanol (ETOH)] Stat Lactate (Lactic Acid) Stat Lipase Stat NT-proBNP (BNP-Adult 18+) Stat PTT Partial Thromboplastin Jacek Stat Procalcitonin Stat Prothrombin Time INR Stat Troponin & CK Cardiac Panel Stat 01/16/23 11:00 XR chest 1V Stat COVID19 -Nasal RAPID Stat EKG-12 Lead Stat RT Consult Eval and Treat NOW 01/16/23 11:36 Blood Culture Stat 01/16/23 11:57 Urinalysis and Microscopic Stat 01/16/23 12:25 CT angio chest PE protocol Stat Respiratory Panel (Film Array) Stat 01/16/23 12:31 EC echo complete with contrast Stat 01/16/23 12:56 Troponin & CK Cardiac Panel Stat 01/16/23 14:06 XR chest for PICC 1V Stat NOREPINEPHRINE BITARTRATE/D5W (Levophed) 4 mg in 250 mls @ 51.982 mls/hr IV TITRATE DONNELL; Protocol Last Titration: 01/16/23 19:08 Dose: 0.05 mcg/kg/min, 25.9 mls/hr Documented By: Titration: 01/16/23 15:36 Dose: 0.05 mcg/kg/min, 25.9 mls/hr Documented By: Titration: 01/16/23 15:03 Dose: 0.1 mcg/kg/min, 51.8 mls/hr Documented By: Titration: 01/16/23 12:59 Dose: 0 mcg/kg/min, 0 mls/hr Documented By: Admin: 01/16/23 12:58 Dose: 0.1 mcg/kg/min, 51.982 mls/hr Documented By: SPF Ondansetron HCl (Ondansetron 4 Mg/2 Ml Inj) 4 mg IV NOW PRN PRN Reason: Nausea And Vomiting Ondansetron HCl (Ondansetron 4 Mg Odt) 4 mg SL NOW PRN PRN Reason: Nausea And Vomiting Discontinued Medications Sodium Chloride (Normal Saline 0.9%) 1,000 mls @ 1,000 mls/hr IV BOLUS ONE Stop: 01/16/23 11:59 Last Infusion: 01/16/23 11:21 Dose: Infused Documented By: Admin: 01/16/23 10:50 Dose: 1,000 mls/hr Documented By: ANDREA Sodium Chloride (Normal Saline 0.9%) 1,000 mls @ 1,000 mls/hr IV BOLUS ONE Stop: 01/16/23 12:00 Last Infusion: 01/16/23 11:39 Dose: Infused Documented By: Admin: 01/16/23 11:15 Dose: 1,000 mls/hr Documented By: ANDREA Sodium Chloride (Normal Saline 0.9%) 1,000 mls @ 1,000 mls/hr IV BOLUS ONE Stop: 01/16/23 13:11 Last Infusion: 01/16/23 13:10 Dose: Infused Documented By: Admin: 01/16/23 12:18 Dose: 1,000 mls/hr Documented By: OTTONIEL Piperacillin Sod/Tazobactam (Sod 4.5 gm/ Sodium Chloride) 100 mls @ 200 mls/hr IV NOW ONE Stop: 01/16/23 12:29 Last Infusion: 01/16/23 13:32 Dose: Infused Documented By: Admin: 01/16/23 12:35 Dose: 200 mls/hr Documented By: OTTONIEL Sodium Chloride (Normal Saline 0.9%) 500 mls @ 1,000 mls/hr IV BOLUS ONE Stop: 01/16/23 14:47 Last Infusion: 01/16/23 14:56 Dose: Infused Documented By: [facility] Admin: 01/16/23 14:24 Dose: 1,000 mls/hr Documented By: TREY Vital Signs Vital signs: Vital Signs - 8 hr 01/16/23 11:30 01/16/23 11:30 01/16/23 11:35 Temperature Pulse Rate 71 73 Respiratory Rate 23 18 Blood Pressure 98/52 L Pulse Oximetry 95 Oxygen Delivery Method 01/16/23 11:37 01/16/23 11:37 01/16/23 11:40 Temperature Pulse Rate 71 Respiratory Rate 23 Blood Pressure 96/44 L 96/48 L Pulse Oximetry 98 Oxygen Delivery Method Room Air 01/16/23 11:40 01/16/23 11:45 01/16/23 11:45 Temperature Pulse Rate 71 75 Respiratory Rate 24 17 Blood Pressure 87/42 L Pulse Oximetry 97 96 Oxygen Delivery Method 01/16/23 11:50 01/16/23 11:50 01/16/23 11:55 Temperature 96.4 F L Pulse Rate 69 69 Respiratory Rate 13 19 Blood Pressure 89/53 L Pulse Oximetry 98 96 Oxygen Delivery Method Room Air 01/16/23 11:55 01/16/23 12:00 01/16/23 12:00 Temperature 96.4 F L Pulse Rate 69 Respiratory Rate 18 Blood Pressure 87/49 L 92/53 L Pulse Oximetry 96 Oxygen Delivery Method 01/16/23 12:05 01/16/23 12:05 01/16/23 12:10 Temperature 96.4 F L 96.4 F L Pulse Rate 69 69 Respiratory Rate 22 16 Blood Pressure 82/43 L Pulse Oximetry 94 94 Oxygen Delivery Method 01/16/23 12:11 01/16/23 12:11 01/16/23 12:15 Temperature 96.4 F L 96.4 F L Pulse Rate 74 70 Respiratory Rate 20 20 Blood Pressure 65/31 L Pulse Oximetry 94 97 Oxygen Delivery Method Room Air 01/16/23 12:16 01/16/23 12:16 01/16/23 12:20 Temperature 96.4 F L Pulse Rate 69 Respiratory Rate 19 Blood Pressure 82/48 L 94/58 L Pulse Oximetry 97 Oxygen Delivery Method 01/16/23 12:20 01/16/23 12:25 01/16/23 12:25 Temperature 96.3 F L 96.3 F L Pulse Rate 70 71 Respiratory Rate 13 17 Blood Pressure 106/59 L Pulse Oximetry 97 97 Oxygen Delivery Method Room Air 01/16/23 12:30 01/16/23 12:30 01/16/23 12:35 Temperature 96.3 F L Pulse Rate 71 Respiratory Rate 14 Blood Pressure 96/53 L 98/53 L Pulse Oximetry 97 Oxygen Delivery Method Room Air 01/16/23 12:35 01/16/23 12:40 01/16/23 12:40 Temperature 96.3 F L 96.1 F L Pulse Rate 70 72 Respiratory Rate 14 17 Blood Pressure 97/53 L Pulse Oximetry 96 95 Oxygen Delivery Method 01/16/23 12:45 01/16/23 12:45 01/16/23 12:50 Temperature 96.1 F L Pulse Rate 70 Respiratory Rate 14 Blood Pressure 86/49 L 96/48 L Pulse Oximetry 94 Oxygen Delivery Method 01/16/23 12:50 01/16/23 12:55 01/16/23 12:55 Temperature 96.1 F L 96.1 F L Pulse Rate 72 71 Respiratory Rate 17 17 Blood Pressure 101/52 L Pulse Oximetry 97 97 Oxygen Delivery Method 01/16/23 13:00 01/16/23 13:00 01/16/23 13:05 Temperature 96.1 F L 96.3 F L Pulse Rate 72 69 Respiratory Rate 17 18 Blood Pressure 100/51 L Pulse Oximetry 97 93 Oxygen Delivery Method Room Air 01/16/23 13:05 01/16/23 13:10 01/16/23 13:11 Temperature Pulse Rate 69 69 Respiratory Rate 14 14 Blood Pressure 101/55 L Pulse Oximetry 96 94 Oxygen Delivery Method 01/16/23 13:11 01/16/23 13:13 01/16/23 13:13 Temperature Pulse Rate 70 Respiratory Rate 22 Blood Pressure 90/50 L 90/53 L Pulse Oximetry 96 Oxygen Delivery Method Room Air 01/16/23 13:15 01/16/23 13:17 01/16/23 13:17 Temperature Pulse Rate 70 69 Respiratory Rate Blood Pressure 99/51 L Pulse Oximetry 96 Oxygen Delivery Method Room Air 01/16/23 13:20 01/16/23 13:20 01/16/23 13:25 Temperature Pulse Rate 69 Respiratory Rate Blood Pressure 88/51 L 89/51 L Pulse Oximetry 96 Oxygen Delivery Method Room Air 01/16/23 13:25 01/16/23 13:26 01/16/23 13:26 Temperature 96.3 F L 96.3 F L Pulse Rate 72 72 Respiratory Rate 20 Blood Pressure 93/48 L Pulse Oximetry 95 Oxygen Delivery Method 01/16/23 13:30 01/16/23 13:30 01/16/23 13:35 Temperature 96.3 F L Pulse Rate 70 Respiratory Rate 24 Blood Pressure 96/55 L 87/47 L Pulse Oximetry 96 Oxygen Delivery Method Room Air 01/16/23 13:35 01/16/23 13:40 01/16/23 13:40 Temperature 96.3 F L 96.3 F L Pulse Rate 70 69 Respiratory Rate Blood Pressure 95/51 L Pulse Oximetry 97 97 Oxygen Delivery Method 01/16/23 13:45 01/16/23 13:45 01/16/23 13:50 Temperature 96.3 F L Pulse Rate 69 Respiratory Rate 32 H Blood Pressure 94/51 L 94/54 L Pulse Oximetry 95 Oxygen Delivery Method 01/16/23 13:50 01/16/23 13:55 01/16/23 13:55 Temperature 96.3 F L 96.3 F L Pulse Rate 73 69 Respiratory Rate 35 H 16 Blood Pressure 96/51 L Pulse Oximetry 95 99 Oxygen Delivery Method 01/16/23 14:00 01/16/23 14:00 01/16/23 14:05 Temperature 96.3 F L Pulse Rate 69 Respiratory Rate 25 H Blood Pressure 94/51 L 100/52 L Pulse Oximetry 96 Oxygen Delivery Method 01/16/23 14:05 01/16/23 14:10 01/16/23 14:10 Temperature 96.3 F L 96.3 F L Pulse Rate 69 69 Respiratory Rate 36 H 33 H Blood Pressure 103/52 L Pulse Oximetry 97 97 Oxygen Delivery Method 01/16/23 14:15 01/16/23 14:16 01/16/23 14:16 Temperature 96.3 F L 96.3 F L Pulse Rate 69 73 Respiratory Rate 12 15 Blood Pressure 60/28 L Pulse Oximetry 99 98 Oxygen Delivery Method 01/16/23 14:18 01/16/23 14:18 01/16/23 14:20 Temperature 96.3 F L 96.3 F L Pulse Rate 71 73 Respiratory Rate 18 21 Blood Pressure 76/48 L Pulse Oximetry 98 99 Oxygen Delivery Method 01/16/23 14:21 01/16/23 14:21 01/16/23 14:25 Temperature 96.3 F L Pulse Rate 72 Respiratory Rate 21 Blood Pressure 85/50 L 104/55 L Pulse Oximetry 98 Oxygen Delivery Method 01/16/23 14:25 01/16/23 14:30 01/16/23 14:30 Temperature 96.3 F L 96.3 F L Pulse Rate 72 73 Respiratory Rate 15 Blood Pressure 106/58 L Pulse Oximetry 98 98 Oxygen Delivery Method 01/16/23 14:33 01/16/23 14:33 01/16/23 14:35 Temperature 96.3 F L 96.3 F L Pulse Rate 71 70 Respiratory Rate 14 14 Blood Pressure 104/57 L Pulse Oximetry 97 96 Oxygen Delivery Method 01/16/23 14:36 01/16/23 14:36 01/16/23 14:40 Temperature 96.3 F L Pulse Rate 71 Respiratory Rate 14 Blood Pressure 112/59 L 101/55 L Pulse Oximetry 96 Oxygen Delivery Method 01/16/23 14:40 01/16/23 14:45 01/16/23 14:45 Temperature 96.3 F L 96.3 F L Pulse Rate 70 70 Respiratory Rate 15 15 Blood Pressure 98/56 L Pulse Oximetry 96 96 Oxygen Delivery Method Room Air Room Air 01/16/23 14:50 01/16/23 14:51 01/16/23 14:51 Temperature 96.3 F L 96.3 F L Pulse Rate 69 69 Respiratory Rate 21 22 Blood Pressure 115/59 L Pulse Oximetry 98 98 Oxygen Delivery Method 01/16/23 14:55 01/16/23 14:55 01/16/23 15:00 Temperature 96.3 F L 96.3 F L Pulse Rate 69 69 Respiratory Rate 17 18 Blood Pressure 113/59 L Pulse Oximetry 98 97 Oxygen Delivery Method 01/16/23 15:00 01/16/23 15:05 01/16/23 15:05 Temperature 96.4 F L Pulse Rate 69 Respiratory Rate 15 Blood Pressure 110/57 L 107/58 L Pulse Oximetry 95 Oxygen Delivery Method Room Air 01/16/23 15:10 01/16/23 15:10 01/16/23 15:15 Temperature 96.4 F L 96.4 F L Pulse Rate 71 69 Respiratory Rate 15 15 Blood Pressure 107/55 L Pulse Oximetry 95 97 Oxygen Delivery Method Room Air 01/16/23 15:16 01/16/23 15:16 01/16/23 15:20 Temperature 96.4 F L 96.4 F L Pulse Rate 68 69 Respiratory Rate 16 19 Blood Pressure 114/75 Pulse Oximetry 97 96 Oxygen Delivery Method Room Air 01/16/23 15:21 01/16/23 15:21 01/16/23 15:25 Temperature 96.6 F L 96.6 F L Pulse Rate 70 70 Respiratory Rate 18 15 Blood Pressure 130/77 Pulse Oximetry 96 94 Oxygen Delivery Method 01/16/23 15:26 01/16/23 15:26 01/16/23 15:30 Temperature 96.6 F L Pulse Rate 70 Respiratory Rate 24 Blood Pressure 148/81 H 149/69 H Pulse Oximetry 94 Oxygen Delivery Method Room Air 01/16/23 15:30 01/16/23 15:35 01/16/23 15:35 Temperature 96.6 F L 96.8 F L Pulse Rate 69 70 Respiratory Rate 14 14 Blood Pressure 148/72 H Pulse Oximetry 97 97 Oxygen Delivery Method Room Air Room Air 01/16/23 15:40 01/16/23 15:40 01/16/23 15:45 Temperature 96.8 F L Pulse Rate 69 Respiratory Rate 15 Blood Pressure 133/71 141/67 H Pulse Oximetry 96 Oxygen Delivery Method Room Air 01/16/23 15:45 01/16/23 15:50 01/16/23 15:50 Temperature 97.0 F L 97.0 F L Pulse Rate 69 71 Respiratory Rate 21 15 Blood Pressure 131/64 Pulse Oximetry 97 96 Oxygen Delivery Method Room Air Room Air 01/16/23 15:55 01/16/23 15:55 01/16/23 16:00 Temperature 97.2 F L Pulse Rate 70 Respiratory Rate 15 Blood Pressure 147/67 H 131/63 Pulse Oximetry 97 Oxygen Delivery Method 01/16/23 16:00 01/16/23 16:05 01/16/23 16:05 Temperature 97.2 F L 97.3 F L Pulse Rate 71 72 Respiratory Rate 17 15 Blood Pressure 139/64 Pulse Oximetry 97 95 Oxygen Delivery Method Room Air 01/16/23 16:10 01/16/23 16:10 01/16/23 16:15 Temperature 97.5 F L Pulse Rate 72 Respiratory Rate 15 Blood Pressure 137/65 128/66 Pulse Oximetry 94 Oxygen Delivery Method Room Air 01/16/23 16:15 01/16/23 16:20 01/16/23 16:20 Temperature 97.5 F L 97.7 F Pulse Rate 71 69 Respiratory Rate 15 14 Blood Pressure 132/63 Pulse Oximetry 94 94 Oxygen Delivery Method Room Air 01/16/23 16:25 01/16/23 16:25 01/16/23 16:30 Temperature 97.7 F 97.7 F Pulse Rate 71 69 Respiratory Rate 15 15 Blood Pressure 127/61 Pulse Oximetry 95 96 Oxygen Delivery Method Room Air 01/16/23 16:30 01/16/23 16:35 01/16/23 16:35 Temperature 97.9 F Pulse Rate 69 Respiratory Rate 13 Blood Pressure 136/62 124/61 Pulse Oximetry 97 Oxygen Delivery Method Room Air 01/16/23 16:40 01/16/23 16:40 01/16/23 16:45 Temperature 97.9 F Pulse Rate 69 Respiratory Rate 22 Blood Pressure 118/57 L 118/59 L Pulse Oximetry 96 Oxygen Delivery Method 01/16/23 16:45 01/16/23 16:50 01/16/23 16:50 Temperature 98.1 F 97.7 F Pulse Rate 69 71 Respiratory Rate 22 22 Blood Pressure 112/63 Pulse Oximetry 97 96 Oxygen Delivery Method Room Air 01/16/23 16:55 01/16/23 16:55 01/16/23 17:00 Temperature 98.1 F Pulse Rate 72 Respiratory Rate 23 Blood Pressure 117/64 125/59 L Pulse Oximetry 97 Oxygen Delivery Method Room Air 01/16/23 17:00 01/16/23 17:05 01/16/23 17:05 Temperature 98.2 F 98.2 F Pulse Rate 69 72 Respiratory Rate 13 16 Blood Pressure 116/56 L Pulse Oximetry 96 95 Oxygen Delivery Method Room Air 01/16/23 17:10 01/16/23 17:10 01/16/23 17:15 Temperature 98.2 F 98.2 F Pulse Rate 70 69 Respiratory Rate 14 Blood Pressure 116/58 L Pulse Oximetry 97 96 Oxygen Delivery Method 01/16/23 17:15 01/16/23 17:20 01/16/23 17:20 Temperature Pulse Rate 69 Respiratory Rate Blood Pressure 125/56 L 109/57 L Pulse Oximetry 97 Oxygen Delivery Method 01/16/23 17:25 01/16/23 17:25 01/16/23 17:30 Temperature Pulse Rate 69 Respiratory Rate Blood Pressure 109/59 L 125/57 L Pulse Oximetry 96 Oxygen Delivery Method 01/16/23 17:30 01/16/23 17:35 01/16/23 17:35 Temperature 97.0 F L 97.5 F L Pulse Rate 69 69 Respiratory Rate 27 H 24 Blood Pressure 110/56 L Pulse Oximetry 96 97 Oxygen Delivery Method Room Air Room Air 01/16/23 17:40 01/16/23 17:41 01/16/23 17:41 Temperature 97.9 F 97.9 F Pulse Rate 70 70 Respiratory Rate 25 H 24 Blood Pressure 106/63 Pulse Oximetry Oxygen Delivery Method 01/16/23 17:45 01/16/23 17:46 01/16/23 17:46 Temperature 98.1 F 98.1 F Pulse Rate 69 69 Respiratory Rate 27 H 21 Blood Pressure 129/60 Pulse Oximetry Oxygen Delivery Method 01/16/23 17:50 01/16/23 17:51 01/16/23 17:51 Temperature 98.2 F 98.2 F Pulse Rate 70 73 Respiratory Rate 24 Blood Pressure 113/58 L Pulse Oximetry Oxygen Delivery Method 01/16/23 17:55 01/16/23 17:55 01/16/23 18:00 Temperature 98.2 F 98.4 F Pulse Rate 69 69 Respiratory Rate 16 Blood Pressure 137/70 Pulse Oximetry 97 95 Oxygen Delivery Method Room Air 01/16/23 18:01 01/16/23 18:01 01/16/23 18:05 Temperature 98.4 F Pulse Rate 69 Respiratory Rate 22 Blood Pressure 123/62 121/60 Pulse Oximetry 95 Oxygen Delivery Method 01/16/23 18:05 01/16/23 18:10 01/16/23 18:10 Temperature 98.6 F 98.6 F Pulse Rate 71 69 Respiratory Rate 23 16 Blood Pressure 118/61 Pulse Oximetry 95 96 Oxygen Delivery Method Room Air Room Air 01/16/23 18:15 01/16/23 18:15 01/16/23 18:20 Temperature 98.6 F Pulse Rate 69 Respiratory Rate 15 Blood Pressure 121/56 L 126/60 Pulse Oximetry 96 Oxygen Delivery Method 01/16/23 18:20 01/16/23 18:25 01/16/23 18:25 Temperature 98.8 F 98.8 F Pulse Rate 69 69 Respiratory Rate 20 19 Blood Pressure 117/56 L Pulse Oximetry 95 95 Oxygen Delivery Method Room Air Room Air 01/16/23 18:30 01/16/23 18:30 01/16/23 18:35 Temperature 98.8 F Pulse Rate 69 Respiratory Rate 17 Blood Pressure 111/57 L 116/59 L Pulse Oximetry 94 Oxygen Delivery Method Room Air 01/16/23 18:35 01/16/23 18:40 01/16/23 18:40 Temperature 98.8 F 99.0 F Pulse Rate 69 69 Respiratory Rate 15 17 Blood Pressure 113/57 L Pulse Oximetry 94 94 Oxygen Delivery Method Room Air 01/16/23 18:45 01/16/23 18:45 01/16/23 18:50 Temperature 99.0 F Pulse Rate 69 Respiratory Rate 15 Blood Pressure 116/57 L 129/71 Pulse Oximetry 95 Oxygen Delivery Method 01/16/23 18:50 01/16/23 18:55 01/16/23 18:55 Temperature 99.0 F 99.0 F Pulse Rate 69 69 Respiratory Rate 16 20 Blood Pressure 119/58 L Pulse Oximetry 95 96 Oxygen Delivery Method Room Air Room Air 01/16/23 19:00 01/16/23 19:00 Temperature 99.1 F Pulse Rate 69 Respiratory Rate 19 Blood Pressure 118/62 Pulse Oximetry 95 Oxygen Delivery Method Room Air MDM - Weakness Lab Data 01/16/23 10:49 01/16/23 10:49 Labs: Lab Results 01/16/23 01/16/23 01/16/23 Range/Units 10:49 11:00 11:57 WBC 4.3 L (4.5-11.0) X10^3/uL RBC 3.43 L (4.5-5.9) X10^6/uL Hgb 10.9 L (13.5-17.5) g/dL Hct 32.2 L (41-53) % MCV 93.9 (80-100) fL MCH 31.7 (26-34) PG MCHC 33.8 (30-36) % RDW 16.0 H (11.6-14.8) % Plt Count 158 (150-400) X10^3/uL Neut % (Auto) 65.0 (50-75) % Lymph % (Auto) 19.7 L (25-40) % [place] % (Auto) 10.6 (3-14) % Eos % (Auto) 4.1 H (2-4) % Baso % (Auto) 0.6 (0-2) % Neut # (Auto) 2800 (8725-0856) /uL Lymph # (Auto) 800 L (9960-8720) /uL [place] # (Auto) 500 (0-900) /uL Eos # (Auto) 200 (0-450) /uL Baso # (Auto) 0 (0-100) /uL PT 16.8 H (10.1-12.7) SECONDS INR 1.5 H (0.9-1.3) APTT 35 (26-36) SECONDS Sodium 143 (137-145) mmol/L Potassium 4.5 (3.4-5.1) mmol/L Chloride 110 H (98-107) mmol/L Carbon Dioxide 22 (22-32) mmol/L BUN 64 H (9-20) mg/dL Creatinine 1.90 H (0.66-1.25) mg/dL Estimated GFR 37 L (>60) mL/min BUN/Creatinine Ratio 33.7 H (6-22) Glucose 118 H (80-110) mg/dL Lactate 3.7 H (0.7-2.1) mmol/L Calcium 10.1 (8.4-10.2) mg/dL Total Bilirubin 0.6 (0.2-1.3) mg/dL AST 43 (17-59) IU/L ALT 32 (<50) IU/L Alkaline Phosphatase 83 (38-126) U/L Total Creatine Kinase 52 L (55-170) U/L Troponin I 0.041 H (0.01-0.034) ng/mL NT-Pro-B Natriuret Pep 4330 H (<125) pg/mL Total Protein 7.5 (6.3-8.2) g/dL Albumin 4.1 (3.5-5.0) g/dL Globulin 3.4 (1.7-4.1) g/dL Albumin/Globulin Ratio 1.2 (1.0-2.8) Lipase 102 (23-300) U/L Procalcitonin 0.16 (<0.5) ng/mL Urine Color Yellow Urine Appearance Clear Urine pH 5.5 (4.5-8.0) Ur Specific [place] 1.015 (1.000-1.035) Urine Protein Negative (Negative) Urine Glucose (UA) Negative (Negative) g/dL Urine Ketones Negative (NEGATIVE) Urine Occult Blood Negative (Negative) Urine Nitrate Negative (Negative) Urine Bilirubin Negative (NEGATIVE) Urine Urobilinogen 0.2 (0.2) E.U./dL Ur Leukocyte Esterase Negative (NEGATIVE) Urine RBC 0-1/hpf (0-5/HPF) Urine WBC 0-1/hpf (0-5/HPF) Ur Squamous Epith Cells 0-1 /hpf (0-5/HPF) Urine Bacteria Few (2-10) H (None) Ur Culture Indicated? Cult not indicated Ethyl Alcohol < 10 ( - 10) mg/dL Chlamy pneumoniae PCR (Not Detect) Adenovirus (PCR) (Not Detect) B.parapertussis DNA PCR (Not Detecte) Coronavirus OC43 (PCR) (Not Detect) Coronavirus HKU1 (PCR) (Not Detect) Coronavirus 229E (PCR) (Not Detect) SARS-CoV-2 (PCR) Negative (Negative) Coronavirus NL63 (PCR) (Not Detect) Human Metapneumovir PCR (Not Detect) Influenza Type A (PCR) (Not Detect) Influenza Type B (PCR) (Not Detect) M. pneumoniae (PCR) (Not Detect) Parainfluenza 1 (PCR) (Not Detect) Parainfluenza 2 (PCR) (Not Detect) Parainfluenza 3 (PCR) (Not Detect) Parainfluenza 4 (PCR) (Not Detect) RSV (PCR) (Not Detect) Entero/Rhino (PCR) (Not Detect) 01/16/23 01/16/23 Range/Units 12:25 12:56 WBC (4.5-11.0) X10^3/uL RBC (4.5-5.9) X10^6/uL Hgb (13.5-17.5) g/dL Hct (41-53) % MCV (80-100) fL MCH (26-34) PG MCHC (30-36) % RDW (11.6-14.8) % Plt Count (150-400) X10^3/uL Neut % (Auto) (50-75) % Lymph % (Auto) (25-40) % [place] % (Auto) (3-14) % Eos % (Auto) (2-4) % Baso % (Auto) (0-2) % Neut # (Auto) (7789-8653) /uL Lymph # (Auto) (9139-2983) /uL [place] # (Auto) (0-900) /uL Eos # (Auto) (0-450) /uL Baso # (Auto) (0-100) /uL PT (10.1-12.7) SECONDS INR (0.9-1.3) APTT (26-36) SECONDS Sodium (137-145) mmol/L Potassium (3.4-5.1) mmol/L Chloride (98-107) mmol/L Carbon Dioxide (22-32) mmol/L BUN (9-20) mg/dL Creatinine (0.66-1.25) mg/dL Estimated GFR (>60) mL/min BUN/Creatinine Ratio (6-22) Glucose (80-110) mg/dL Lactate 0.9 (0.7-2.1) mmol/L Calcium (8.4-10.2) mg/dL Total Bilirubin (0.2-1.3) mg/dL AST (17-59) IU/L ALT (<50) IU/L Alkaline Phosphatase (38-126) U/L Total Creatine Kinase 48 L (55-170) U/L Troponin I 0.034 (0.01-0.034) ng/mL NT-Pro-B Natriuret Pep (<125) pg/mL Total Protein (6.3-8.2) g/dL Albumin (3.5-5.0) g/dL Globulin (1.7-4.1) g/dL Albumin/Globulin Ratio (1.0-2.8) Lipase (23-300) U/L Procalcitonin (<0.5) ng/mL Urine Color Urine Appearance Urine pH (4.5-8.0) Ur Specific [place] (1.000-1.035) Urine Protein (Negative) Urine Glucose (UA) (Negative) g/dL Urine Ketones (NEGATIVE) Urine Occult Blood (Negative) Urine Nitrate (Negative) Urine Bilirubin (NEGATIVE) Urine Urobilinogen (0.2) E.U./dL Ur Leukocyte Esterase (NEGATIVE) Urine RBC (0-5/HPF) Urine WBC (0-5/HPF) Ur Squamous Epith Cells (0-5/HPF) Urine Bacteria (None) Ur Culture Indicated? Ethyl Alcohol ( - 10) mg/dL Chlamy pneumoniae PCR Not detected (Not Detect) Adenovirus (PCR) Not detected (Not Detect) B.parapertussis DNA PCR Not detected (Not Detecte) Coronavirus OC43 (PCR) Not detected (Not Detect) Coronavirus HKU1 (PCR) Not detected (Not Detect) Coronavirus 229E (PCR) Not detected (Not Detect) SARS-CoV-2 (PCR) Not detected (Negative) Coronavirus NL63 (PCR) Not detected (Not Detect) Human Metapneumovir PCR Not detected (Not Detect) Influenza Type A (PCR) Not detected (Not Detect) Influenza Type B (PCR) Not detected (Not Detect) M. pneumoniae (PCR) Not detected (Not Detect) Parainfluenza 1 (PCR) Not detected (Not Detect) Parainfluenza 2 (PCR) Not detected (Not Detect) Parainfluenza 3 (PCR) Not detected (Not Detect) Parainfluenza 4 (PCR) Not detected (Not Detect) RSV (PCR) Not detected (Not Detect) Entero/Rhino (PCR) Not detected (Not Detect) Imaging Data Chest x-ray: Radiologist Impression: Close Chest X-Ray (Signed) Wiliam Casper - 01/16/23 Chest X-Ray (Signed) Reymundo Kong - 05/23/22 Telemetry Strips 03/10/22 Telemetry Strips 03/10/22 Chest X-Ray (Signed) VirgenYousif - 03/10/22 Echocardiogram Ultrasound (Cancelled) 02/17/22 Chest X-Ray (Signed) ZinaMatt - 02/16/22 DI Result CC 02/10/22 Foot X-Ray (Signed) TavaresMerissa arrington - 11/22/21 Foot X-Ray (Signed) TavaresMerissa arrington - 11/22/21 Foot X-Ray (Signed) aSsha Zelaya - 10/22/21 DI Result CC 03/19/21 DI Result CC 03/19/21 DI Result CC 02/24/20 Chest X-Ray (Signed) Toby Prabhakar - 11/27/19 Abdomen/Pelvis CT (Signed) Yudy Casey - 11/19/19 Vascular Ultrasound (Signed) Yudy Casey - 10/17/17 Launch?Image [address] [address] XRay Report Signed Patient: Anderson Duarte MR#: [id number] : 1950 Acct:[id number] Age/Sex: 72 / M Date of Service: 01/16/23 Loc: ED Accession Number: [id number] Procedure: XR chest 1V Ordering Provider: Yahaira Mckeon D.O. PROCEDURE: XR CHEST 1V INDICATIONS: suspected sepsis TECHNIQUE: One view of the chest was acquired. COMPARISON: [facility], , XR CHEST 2V, 05/23/2022, 15:16. FINDINGS: Surgical changes and devices: Pacemaker Lungs and pleura: Lungs are clear. No pleural effusions or pneumothorax. Mediastinum: Mediastinal contours appear normal. Cardiomegaly. Bones and chest wall: No suspicious bony lesions. Overlying soft tissues appear unremarkable. IMPRESSION: Cardiomegaly. No evidence acute pulmonary process. Dictated by: Wiliam Casper M.D. on 01/16/2023 at 11:51 Approved by: Wiliam Casper M.D. on 01/16/2023 at 11:52 CT scan - chest: Radiologist Impression: [address] [address] [address] Scan Report Signed Patient: Anderson Duarte MR#: [id number] : 1950 Acct:[id number] Age/Sex: 72 / M Date of Service: 01/16/23 Loc: ED Accession Number: [id number] Procedure: CT angio chest PE protocol Ordering Provider: Yahaira Mckeon D.O. PROCEDURE: CT ANGIO CHEST PE PROTOCOL INDICATIONS: hypotension, near syncope, hospitalized ICD lead complicatio TECHNIQUE: After the administration of intravenous contrast, 2 mm thick sections acquired from the pulmonary apices to the posterior costophrenic angles. 3-dimensional maximum intensity projection (MIP) coronal and sagittal reformats were then acquired through the thorax. For radiation dose reduction, the following was used: automated exposure control, adjustment of mA and/or kV according to patient size. COMPARISON: [facility], CR, XR CHEST 1V, 01/16/2023, 11:05. FINDINGS: Image quality: Excellent. Pulmonary arteries: Pulmonary arteries are normal in size, and demonstrate no intraluminal filling defects to suggest central pulmonary embolism. Lungs and pleura: Lungs are clear. Elevation of the right hemidiaphragm. No pleural effusions or pneumothorax. Central and peripheral airways are patent. Mediastinum: Heart size is enlarged, without pericardial effusion. Pacemaker. No mediastinal or hilar adenopathy. Borderline aneurysmal dilatation of the ascending aorta, measuring 4.1 cm. No dissection.. Esophagus is normal in caliber, without hiatal hernia. Bones and chest wall: No suspicious bony lesions. Ribs and thoracic spine appear intact throughout. Thyroid gland is unremarkable. No axillary or supraclavicular adenopathy. Abdomen: Visualized upper abdominal solid organs appear normal in the early arterial phase of enhancement. IMPRESSION: 1. No acute pulmonary emboli. 2. No acute pulmonary process. 3. Borderline aneurysmal dilatation of the ascending aorta. 4. Cardiomegaly, pacemaker. Dictated by: Wiliam Casper M.D. on 01/16/2023 at 13:45 Approved by: Wiliam Casper M.D. on 01/16/2023 at 13:50 ECG Data Attestation: I personally reviewed and interpreted this ECG as follows: Interpretation: Ventricularly paced rhythm rate of 71 PA 162 QTC 5 x 4. No acute ST changes appreciated. Patient has pacemaker was interrogated call notes devices BV ICD, leads look good stable left ventricular lead is turned off but this is not new has been in place for some time no recent episodes noted. 65% on battery. [facility] Narrative Medical decision making narrative: Patient presents with near syncopal episode, hypotension in the field subsequent significant 60 and below, patient is 70-80 systolic initially here, does seem to be responsive to fluids. Patient does have cardiac history reported valvular issues, ICD lead placement or adjustment with [facility] and patient had hospitalization secondary to this secondary to persistent hypotension. Family is unable to really give history about why he was hypotensive if there was infection, cardiac complications or other. Patient was initially pale, mottled color has improved. Blood pressure has been somewhat labile up and down sometimes in his normal systolic of 105 by patient report dropping back down to 70s intermittently. Patient had good urine output with a L of urine out initially, he is not been hypoxic he has been paced, pacemaker was interrogated did not show any events, appears to be working appropriately in no firing of his defibrillator. They note that 1 lead is still turned off but this is not new. Patient's lab workup shows white count of 4.3 temperature has been low at 96, he was warmed, platelets were negative, lactate was elevated but improved. Sepsis is potentially on the potential differential. Patient did receive fluid bolus but not full 30 cc/kilos that would be 4.23 L, based more on ideal body weight. Patient's renal function shows a creatinine of 1.9 was 1.6 early in December, BUN 64 but consistent with prior normal electrolytes lactate improved from 3.7- 0.9, procalcitonin is negative BNP is elevated at 4300 troponin was indeterminate but trending down words with normal LFTs. UA shows bacteria but no other clear signs of infection. Chest x-ray showed no acute change, patient had CT angio no PE, no large pericardial effusion, no obvious pulmonary edema. Patient has continued to improve while he is in the department. Was eventually started on norepinephrine is continues to have low blood pressures into the 80s frequently despite fluid resuscitation. Patient responded almost immediately to norepinephrine. Patient had PICC line placed. Scratch Polisher had difficulty advancing, suspect secondary to his pacemaker being present at that location. They are able to withdraw, withdrawn somewhat able to draw back and flush without issue. Patient on chest x-ray shows no acute change and felt appropriate for use. Dr. Ruiz [facility] out of [facility]. Discussed patient's findings today, he suspects CHF and patient has quite complicated cardiac history recommends Levophed, Lasix drip if patient's appearing fluid overloaded does encourage sepsis workup and recommends transfer to a larger facility. Patient has had recent cardiac interventions at [facility], felt to be the most appropriate location for placement. Patient case discussed with Dr. Cha from [facility]. Feels patient would be very appropriate for transfer. Asked to continue your epi, does not have to diurese here but felt needed can go ahead and give while awaiting for transfer. Can diuresis patient appears to be having increasing changes for fluid overload. Agrees with current plan. Spoke with Dr. Almonte, reservations manager at [facility] for transfer. Feels can hold off on diuresis continue with norepinephrine and they will diurese their as needed unless or acute changes here. Discussed with patient all questions answered. Critical Care Time Critical Care Time Critical Care Time: Yes Total Critical Care Time: 45 Attestation: The high probability of a clinically significant, sudden or life threatening deterioration of the [cardiac, pulm] system(s) required my full and direct attention, intervention and personal management. The aggregate critical care time was [] minutes. This time is in addition to time spent performing reported procedures but includes the following: [x] Data Review and interpretation [x] Patient assessment and monitoring of vital signs [x] Documentation [x] Medication orders and management Discharge Plan Departure Patient Disposition: [facility] Clinical Impression: Hypotension, CHF (congestive heart failure), SIRS (systemic inflammatory response syndrome) Prescriptions: No Action gabapentin 300 mg capsule 300 mg PO QD-BID Qty: 180 1RF carvedilol 6.25 mg tablet See Rx Instructions .ROUTE .COMPLEX Qty: 180 3RF Dose Instruction: TAKE 1 TABLET TWICE A DAY Rx Instructions: TAKE 1 TABLET TWICE A DAY Eliquis 5 mg tablet See Rx Instructions .ROUTE .COMPLEX Qty: 180 3RF Dose Instruction: TAKE 1 TABLET TWICE A DAY Rx Instructions: TAKE 1 TABLET TWICE A DAY losartan 25 mg tablet 12.5 mg PO DAILY pantoprazole 40 mg tablet,delayed release (DR/EC) 40 mg PO DAILY tamsulosin 0.4 mg capsule 0.8 mg PO DAILY Qty: 180 3RF torsemide 20 mg tablet 40 mg PO DAILY Qty: 180 3RF fluticasone propionate [Flonase Allergy Relief] 50 mcg/actuation spray,suspension 1 spray intranasal BID Rx Instructions: administer into each nostril multivit with min-folic acid 0.4 mg Tablet 1 tab PO DAILY Referrals: Matt Lopez MD [Primary Care Provider] -
[2023-01-16 12:18] LABS: Appearance Urine UA CLEAR; Bilirubin Urine UA NEGATIVE (NEGATIVE); Color Urine UA YELLOW; Glucose Urine UA NEGATIVE (Negative); Ketones Urine UA NEGATIVE (NEGATIVE); Leukocyte Esterase Urine UA NEGATIVE (NEGATIVE); Nitrite Urine UA NEGATIVE (Negative); Occult Blood Urine UA NEGATIVE (Negative); Protein Urine UA NEGATIVE (Negative); Specific Gravity Urine UA 1.015 (1.000-1.035); Urobilinogen Urine UA 0.2 E.U./dL (0.2); pH Urine UA 5.5 (4.5-8.0)
[2023-01-16 12:25] LABS: Bacteria Urine Few (2-10); Culture Indicated Urine Cult Not Indicated; RBC Urine 0-1/HPF (0-5/HPF); Squamous Epithelial Cell Urine 0-1 /HPF (0-5/HPF); WBC Urine 0-1/HPF (0-5/HPF)
--- NOTE | 2023-01-16 12:25 | DI.CT.S_ITS ---
PROCEDURE: CT ANGIO CHEST PE PROTOCOL INDICATIONS: hypotension, near syncope, hospitalized ICD lead complicatio TECHNIQUE: After the administration of intravenous contrast, 2 mm thick sections acquired from the pulmonary apices to the posterior costophrenic angles. 3-dimensional maximum intensity projection (MIP) coronal and sagittal reformats were then acquired through the thorax. For radiation dose reduction, the following was used: automated exposure control, adjustment of mA and/or kV according to patient size. COMPARISON: [facility], CR, XR CHEST 1V, 01/16/2023, 11:05. FINDINGS: Image quality: Excellent. Pulmonary arteries: Pulmonary arteries are normal in size, and demonstrate no intraluminal filling defects to suggest central pulmonary embolism. Lungs and pleura: Lungs are clear. Elevation of the right hemidiaphragm. No pleural effusions or pneumothorax. Central and peripheral airways are patent. Mediastinum: Heart size is enlarged, without pericardial effusion. Pacemaker. No mediastinal or hilar adenopathy. Borderline aneurysmal dilatation of the ascending aorta, measuring 4.1 cm. No dissection.. Esophagus is normal in caliber, without hiatal hernia. Bones and chest wall: No suspicious bony lesions. Ribs and thoracic spine appear intact throughout. Thyroid gland is unremarkable. No axillary or supraclavicular adenopathy. Abdomen: Visualized upper abdominal solid organs appear normal in the early arterial phase of enhancement. IMPRESSION: 1. No acute pulmonary emboli. 2. No acute pulmonary process. 3. Borderline aneurysmal dilatation of the ascending aorta. 4. Cardiomegaly, pacemaker. Dictated by: Wiliam Casper M.D. on 01/16/2023 at 13:45 Approved by: Wiliam Casper M.D. on 01/16/2023 at 13:50
--- NOTE | 2023-01-16 12:31 | DI.ECHO.S_ITS ---
[place] [facility]---------+ [facility] +---------+ : : [address] : : : : [id number] : : : : Phone: [phone]+ Echocardiogram Report + + :Name: MARIOLA DUCKWORTH Study Date: 01/16/2023 Height: 72 in : :[facility] ReadingLocation: Weight: 312 lb : : Gender: Male BSA: 2.6 m2 : :: 1950 Age: 72 yrs BP: 110/57 mmHg: :Reason For Study: HAD ICD LEAD ADJUSTED 01/08, HYPOTENSION, : :HOSPITALIZED : :Ordering Physician: GERTRUDE, : :ESTEFANÍA Performed By: Carolyne Fowler : :Referring: ESTEFANÍA LOREDO : + + Interpretation Summary Technically difficult study. The left ventricle is moderately dilated. The ejection fraction is estimated to be 40-45%. The right ventricle is severely dilated. There is a pacemaker lead in the right ventricle. There is severe biatrial enlargement. There is mild aortic valve sclerosis. There is mild aortic regurgitation. There is moderate to severe mitral regurgitation. There is severe tricuspid regurgitation. The right ventricular systolic pressure is estimated to be at least 57 mmHg based on an estimated right atrial pressure of 15 mm Hg. The ascending aorta is mildly enlarged. There is no pericardial effusion. Comparison is made with the echocardiogram of 10/17/2022, LV function has imporoved. Procedure: A two-dimensional transthoracic echocardiogram with color flow and Doppler was performed. The study quality was technically difficult. Comparison is made with the echocardiogram of 10/17/2022. A contrast injection of Definity was performed to improve assessment of LV function. The heart rate ranged between 69-83 bpm during the study. Left Ventricle: The left ventricle is moderately dilated. There is normal left ventricular wall thickness. The ejection fraction is estimated to be 40- 45%. There is mild global hypokinesis of the left ventricle. Septal motion is consistent with conduction abnormality. Diastolic function could not be accurately assessed due to confounding valvular disease. Right Ventricle: There is a pacemaker lead in the right ventricle. The right ventricle is severely dilated. Atria: There is severe biatrial enlargement. There is no Doppler evidence for an interatrial shunt. Mitral Valve: The mitral valve leaflets are mildly calcified. There is moderate to severe mitral regurgitation. Aortic Valve: The aortic valve opens well. There is mild aortic valve sclerosis. There is no aortic valve stenosis. There is mild aortic regurgitation. Tricuspid Valve: The tricuspid annulus is dilated. There is severe tricuspid regurgitation. The right ventricular systolic pressure is estimated to be at least 57 mmHg based on an estimated right atrial pressure of 15 mm Hg. Pulmonic Valve: The pulmonic valve is not well visualized. There is no pulmonic valvular regurgitation. Great Vessels: The aortic root is normal size. The ascending aorta is mildly enlarged. The IVC is dilated (diameter is greater than 2.1 cm) and it collapses less than 50% with a sniff. This suggests a high right atrial pressure of 15 mm Hg. Pericardium/ Pleura There is no pericardial effusion. There is no pleural effusion. MMode/2D Measurements & Calculations LVIDd: 6.6 cm LVOT diam: 2.3 cm LVIDs: 5.3 cm Ao root diam: 3.7 cm FS: 20.3 % asc Aorta Diam: 4.1 cm EPSS: 1.6 cm Ao Arch Diam (Prox Trans): 3.8 cm IVSd: 0.78 cm LVPWd: 0.86 cm LV marie. diameter/BSA (cm/m^2): 2.6 LV sys. diameter/BSA (cm/m^2): 2.1 LA A2 area: 48.8 cm2 RA long axis: 9.6 cm LA A4 area: 53.7 cm2 RA area: 55.9 cm2 LA length (vol): 8.8 cm RA vol: 276.6 ml LA vol: 251.6 ml RA : 107.5 ml/m2 LA vol index: 97.8 ml/m2 IVC diam: 2.8 cm RVD1 (basal): 6.1 cm TAPSE: 1.7 cm Doppler Measurements & Calculations Ao V2 max: 172.2 cm/sec LVOT Max Christo: 78.5 cm/sec Ao V2 mean: 117.2 cm/sec LV V1 max P.5 mmHg Ao max P.9 mmHg LV V1 VTI: 14.5 cm Ao mean P.2 mmHg HAYLEE(I,D): 1.9 cm2 Ao V2 VTI: 31.3 cm HAYLEE(V,D): 1.9 cm2 sev ratio: 0.46 HAYLEE indexed to BSA (cm^2/m^2): 0.75 MV E max christo: 106.3 cm/sec TR max christo: 324.5 cm/sec MV A max christo: 40.0 cm/sec TR max P.1 mmHg MV E/A: 2.7 PA V2 max: 89.4 cm/sec Med Peak E' Christo: 6.3 cm/sec PA V2 mean: 63.0 cm/sec E/E' med: 16.9 PA mean P.8 mmHg Lat Peak E' Christo: 12.7 cm/sec PA pr(Accel): 32.8 mmHg E/E' lat: 8.4 E/e' average: 12.7 MV dec time: 0.19 sec SV(LVOT): 60.2 ml Electronically signed by: Bertha King on Reading Physician:01/16/2023 07:12 PM
[2023-01-16] MEDS: PIPERACILLIN/TAZO 4.5 GM in SODIUM CHLORIDE 0.9% 100 ML IV (12:35)
[2023-01-16 12:46] LABS: Ethanol (ETOH) < 10 mg/dL
[2023-01-16 12:58] LABS: Reflexed Lactate in 2 Hours Y
[2023-01-16] MEDS: NOREPINEPHRINE BITARTRATE/D5W 4 MG/250 ML PLAST..BAG 51.982 MG IV (12:58)
--- NOTE | 2023-01-16 13:04 | PC.NURSE ---
Dr. Mckeon states to hold off on administering vasopressors and see if 3rd liter of fluid maintains patient's BP. See MAR
[2023-01-16 13:21] LABS: Adenovirus Not Detected (Not Detect); B. parapertussis Not Detected (Not Detecte); Bordetella pertussis Not Detected (Not Detect); Chlamydophila pneumoniae Not Detected (Not Detect); Coronavirus 229E Not Detected (Not Detect); Coronavirus HKU1 Not Detected (Not Detect); Coronavirus NL 63 Not Detected (Not Detect); Coronavirus OC43 Not Detected (Not Detect); Human Metapneumovirus Not Detected (Not Detect); Human Rhinovirus/Enterovirus Not Detected (Not Detect); Influenza A Not Detected (Not Detect); Influenza B Not Detected (Not Detect); Mycoplasma pneumoniae Not Detected (Not Detect); Parainfluenza Virus 1 Not Detected (Not Detect); Parainfluenza Virus 2 Not Detected (Not Detect); Parainfluenza Virus 3 Not Detected (Not Detect); Parainfluenza Virus 4 Not Detected (Not Detect); Respiratory Syncytial Virus Not Detected (Not Detect); SARS- CoV-2 Not Detected (Not Detecte)
--- NOTE | 2023-01-16 13:23 | PC.NURSE ---
Nurse with patient to CT, vitals as documented. Patient kept on monitor and is back in room.
[2023-01-16 13:33] LABS: Lactate 2HR (Lactic Acid Rflx) 0.9 mmol/L (0.7-2.1)
[2023-01-16 13:34] LABS: Creatine Kinase 48 U/L (55-170)
--- NOTE | 2023-01-16 13:41 | PC.NURSE ---
Patient was recently discharged from [facility] and went home this past monday01/13/23. Since being at home he states he has a hard time ambulating with a walker, and today he felt dizzy and was able to get assistance into the shower. He got to the point where he felt like he was so weak, he thought he was going to pass out. Pt currently denies dizziness or nausea. PICC nurse at bedside.
[2023-01-16 13:46] LABS: Troponin I 0.034 ng/mL (0.01-0.034)
--- NOTE | 2023-01-16 14:06 | DI.RAD.S_ITS ---
PROCEDURE: XR CHEST FOR PICC 1V INDICATIONS: picc line placement TECHNIQUE: One view of the chest was acquired. COMPARISON: [facility], CR, XR CHEST 1V, 01/16/2023, 11:05. FINDINGS: Surgical changes and devices: Left-sided pacer. Left arm PICC, tip of which appears to be within the left lateral subclavian vein. Lungs and pleura: Lungs are clear. No pleural effusions or pneumothorax. Mediastinum: Mediastinal contours appear normal. Heart size is normal. Bones and chest wall: No suspicious bony lesions. Overlying soft tissues appear unremarkable. IMPRESSION: 1. No acute process. 2. Left arm PICC as above. Dictated by: Kendy Cox M.D. on 01/16/2023 at 14:39 Approved by: Kendy Cox M.D. on 01/16/2023 at 14:40
[2023-01-16] MEDS: SODIUM CHLORIDE 0.9% 500 ML 1000 ML IV (14:24)
--- NOTE | 2023-01-16 17:02 | PC.NURSE ---
Pt's spouse was called to inform of pt's acceptance to [facility]. plans on bringing him his tablet, glasses, and CPAP per patient request.
--- NOTE | 2023-01-16 17:05 | PC.NURSE ---
Patient was repositioned and taken off of the bedpan. Pt states he was unable to have a BM, and that he felt his catheter leak on his legs. Pt's legs were wet with urine and he was cleaned up. Provider instructed to remove saline from catheter retention balloon and reinflate. The catheter balloon was emptied and contained 9cc of saline. 10cc of saline was put back into the barboza balloon. Patient denies pain or pressure. We elevated patients heel's off of the bed with pillows.
--- NOTE | 2023-01-16 19:21 | PC.NURSE ---
Patient's tablet, CPAP, and glasses were sent with transfer ambulance. [facility]
== END 2023-01-16 19:10 | disposition short-term general hospital (02) ==
PROVIDERS: Emergency Provider Emergency Medicine; PCP Family Medicine
DX: I95.9 Hypotension, unspecified (principal); I50.9 Heart failure, unspecified; R65.10 Systemic inflammatory response syndrome (SIRS) of non-infectious origin without acute organ dysfunction; Z20.822 Contact with and (suspected) exposure to COVID-19
CPT/HCPCS: 36415; 36569; 71045; 71275; 80053; 80320; 81001; 82550; 83605; 83690; 83880; 84145; 84484; 85025; 85610; 85730; 87040; 87633; 87635; 93005; 93010; 96361; 96365; 96366; 96367; 99285; 99291; 99292; C9803; C8929; J2543; Q9957; Q9967

== ENCOUNTER → 2023-02-14 15:13 | Outpatient (CLI) | payer MEDICARE, SELFPAY ==
[2022-03-10 23:31] VITALS: BMI 40.0
[2022-03-11 12:11] VITALS: PULSE 64; RESP 22; O2SAT 98
[2023-02-14 17:30] LABS: BUN Creatinine Ratio 29.5 (6-22); Blood Urea Nitrogen 36 mg/dL (9-20); Calcium 9.7 mg/dL (8.4-10.2); Carbon Dioxide 25 mmol/L (22-32); Chloride 110 mmol/L (98-107); Estimated Glomerular Filt Rate > 60 mL/min (>60); Glucose 89 mg/dL (80-110); HEMOLYSIS < 15 (0-50); Potassium 4.3 mmol/L (3.4-5.1); Sodium 139 mmol/L (137-145)
== END ==
PROVIDERS: Family Provider Student in an Organized Health Care Education/Training Program; PCP Family Medicine; Referring Provider Physician Assistant; Visit Provider Physician Assistant
DX: I42.8 Other cardiomyopathies (principal)
CPT/HCPCS: 36415; 80048

== ENCOUNTER → 2023-05-18 12:13 | Outpatient (CLI) | payer MEDICARE, SELFPAY ==
[2022-03-10 23:31] VITALS: BMI 40.0
[2022-03-11 12:11] VITALS: PULSE 64; RESP 22; O2SAT 98
== END ==
LOC: PHYS 12:13
PROVIDERS: Family Provider Family Medicine; PCP Family Medicine; Referring Provider Family Medicine; Visit Provider Family Medicine
DX: E66.01 Morbid (severe) obesity due to excess calories (principal); M54.9 Dorsalgia, unspecified; G89.29 Other chronic pain; R29.898 Other symptoms and signs involving the musculoskeletal system; M79.674 Pain in right toe(s); M79.675 Pain in left toe(s); R53.1 Weakness
CPT/HCPCS: 95886; 95911

== ENCOUNTER 2023-06-06 13:45 | Outpatient (RCR) | payer MEDICARE, SELFPAY ==
[2022-03-10 23:31] VITALS: BMI 40.0
[2022-03-11 12:11] VITALS: PULSE 64; RESP 22; O2SAT 98
--- NOTE | 2023-01-26 14:45 | PT.OPPOC ---
Physical, Occupational & Speech Therapy At [facility] Current Diagnoses Morbid (severe) obesity due to excess calories (01/26/23) Other chronic pain (01/26/23) Dorsalgia, unspecified (01/26/23) Muscle weakness (generalized) (01/26/23) Pain in right toe(s) (01/26/23) Pain in left toe(s) (01/26/23) Other abnormalities of gait and mobility (01/26/23) Other symptoms and signs involving the musculoskeletal system (01/26/23) Chronic fatigue, unspecified (01/26/23) Other reduced mobility (01/26/23) Visit Care Team Role Provider Type Brandon Houston MD Family Provider Physician Specialty: Internal Medicine Address: [address] [place] [address], [address], [facility] Email: [email or web address] Matt Lopez MD Attending Provider Physician Primary Care Provider Referring Provider Specialty: Family Practice Obstetrics Address: [address] [place] [address], [facility] Email: [email or web address] Plan Of Care PT-OP-T Assessment and Plan Start: 01/26/23 17:24 Freq: Status: Active Protocol: Document 01/26/23 14:00 DCW (Rec: 01/27/23 13:05 DCW [id number]) Physical Therapy Assessment Rehab Potential Rehabilitation Potential Good Evaluation Complexity Number of Personal Factors/Comorbidities 3 or More Number of Body Systems Impaired 4 or More Clinical Presentation at Evaluation Unstable Impairments Impairments Activity Tolerance,Balance, Functional Activities, Functional Mobility,Gait,Pain, Posture,ROM,Strength,Tone, Transfers Goals Three Impairment Completes 5x Sit to marketing rep 1 :51.03 Long-Term Goal (LTG) Pt to improve 5xStS score to < 60 seconds in order to display increased leg strength and improved transfer ability. LTG Duration 04/26/23 Two Impairment Pt ambulation limited to 142' in 3:20 using FWW. Long-Term Goal (LTG) Pt to ambulate >800' during a 6 minute walk test to demonstrate improved activity tolerance and increased independent gait mobility LTG Duration 04/26/23 One Impairment Pt does not have an appropriate home exercise program Short Term Goal (STG) Pt to be independent and compliant with appropriate HEP STG Duration 02/27/23 Assessment Summary Assessment Pt presents with a highly complex medical history, currently greatly affected in his day to day function by ongoing weakness, poor activity tolerance, immobility , and decreased functional independence nearly two years after a severe bacterial respiratory infection. Over the past two years, pt has additionally experienced cardiac issues, including an [place] and two surgeries to place pacemaker leads, which has limited his ability to participate in skilled therapy at different times. Pt is finally hopeful that his heart surgeries are now past, and is looking forward to continue to build up leg and shoulder strength, decrease burden of care, and decrease reliance on wheelchair by improving gait, balance, and activity tolerance. Physical Therapy Plan Frequency and Duration Frequency of Treatment 2x/Week Plan of Care Start Date 01/26/23 Plan of Care End Date 04/26/23 Therapeutic Interventions Therapeutic Interventions Balance Training,Coordination Training,Home Exercise Program ,Joint Mobilizations,Manual Therapy,Neuromuscular Re- education,Patient/Caregiver Education,Self-Care/Home Management,Soft Tissue Mobilization,Therapeutic Activities,Therapeutic Exercises Next Visit Focus/Plan Next Note Type Treatment Note Next Visit Plan LE strength, shoulder mobility , activty tolerance, balance and gait training Plan of Care Dates Plan of Care Start Date 01/26/23 Plan of Care End Date 04/26/23 Electronically Signed by: Rikki Lopez, PT 01/27/23 4877 If you are in agreement with this Plan of Care, please return a signed and dated copy. I have reviewed this Plan of Care and certify that the skilled therapy services above are required to meet the patient?s needs. Physician Signature Date Printed Name and Credentials Clinical Instructor Signature Printed Name and Credentials
--- NOTE | 2023-01-26 14:45 | PT.OPPOC ---
Physical, Occupational & Speech Therapy At [facility] Current Diagnoses Morbid (severe) obesity due to excess calories (01/26/23) Other chronic pain (01/26/23) Dorsalgia, unspecified (01/26/23) Muscle weakness (generalized) (01/26/23) Pain in right toe(s) (01/26/23) Pain in left toe(s) (01/26/23) Other abnormalities of gait and mobility (01/26/23) Other symptoms and signs involving the musculoskeletal system (01/26/23) Chronic fatigue, unspecified (01/26/23) Other reduced mobility (01/26/23) Visit Care Team Role Provider Type Brandon Houston MD Family Provider Physician Specialty: Internal Medicine Address: [address] [place] [address], [address], [facility] Email: [email or web address] Matt Lopez MD Attending Provider Physician Primary Care Provider Referring Provider Specialty: Family Practice Obstetrics Address: [address] [place] [address], [facility] Email: [email or web address] Plan Of Care PT-OP-T Assessment and Plan Start: 01/26/23 17:24 Freq: Status: Active Protocol: Document 01/26/23 14:00 DCW (Rec: 01/27/23 13:05 DCW [id number]) Physical Therapy Assessment Rehab Potential Rehabilitation Potential Good Evaluation Complexity Number of Personal Factors/Comorbidities 3 or More Number of Body Systems Impaired 4 or More Clinical Presentation at Evaluation Unstable Impairments Impairments Activity Tolerance,Balance, Functional Activities, Functional Mobility,Gait,Pain, Posture,ROM,Strength,Tone, Transfers Goals Three Impairment Completes 5x Sit to plumbing and heating contractor 1 :51.03 Senior Living Goal (LTG) Pt to improve 5xStS score to < 60 seconds in order to display increased leg strength and improved transfer ability. LTG Duration 04/26/23 Two Impairment Pt ambulation limited to 142' in 3:20 using FWW. Senior Living Goal (LTG) Pt to ambulate >800' during a 6 minute walk test to demonstrate improved activity tolerance and increased independent gait mobility LTG Duration 04/26/23 One Impairment Pt does not have an appropriate home exercise program Short Term Goal (STG) Pt to be independent and compliant with appropriate HEP STG Duration 02/27/23 Assessment Summary Assessment Pt presents with a highly complex medical history, currently greatly affected in his day to day function by ongoing weakness, poor activity tolerance, immobility , and decreased functional independence nearly two years after a severe bacterial respiratory infection. Over the past two years, pt has additionally experienced cardiac issues, including an [place] and two surgeries to place pacemaker leads, which has limited his ability to participate in skilled therapy at different times. Pt is finally hopeful that his heart surgeries are now past, and is looking forward to continue to build up leg and shoulder strength, decrease burden of care, and decrease reliance on wheelchair by improving gait, balance, and activity tolerance. Physical Therapy Plan Frequency and Duration Frequency of Treatment 2x/Week Plan of Care Start Date 01/26/23 Plan of Care End Date 04/26/23 Therapeutic Interventions Therapeutic Interventions Balance Training,Coordination Training,Home Exercise Program ,Joint Mobilizations,Manual Therapy,Neuromuscular Re- education,Patient/Caregiver Education,Self-Care/Home Management,Soft Tissue Mobilization,Therapeutic Activities,Therapeutic Exercises Next Visit Focus/Plan Next Note Type Treatment Note Next Visit Plan LE strength, shoulder mobility , activty tolerance, balance and gait training Plan of Care Dates Plan of Care Start Date 01/26/23 Plan of Care End Date 04/26/23 Electronically Signed by: Rikki Lopez, PT 01/27/23 [id number] If you are in agreement with this Plan of Care, please return a signed and dated copy. I have reviewed this Plan of Care and certify that the skilled therapy services above are required to meet the patient?s needs. Physician Signature Date Printed Name and Credentials Clinical Instructor Signature Printed Name and Credentials
--- NOTE | 2023-01-26 14:45 | PT.OIE ---
Current Diagnoses Morbid (severe) obesity due to excess calories (01/26/23) Other chronic pain (01/26/23) Dorsalgia, unspecified (01/26/23) Muscle weakness (generalized) (01/26/23) Pain in right toe(s) (01/26/23) Pain in left toe(s) (01/26/23) Other abnormalities of gait and mobility (01/26/23) Other symptoms and signs involving the musculoskeletal system (01/26/23) Chronic fatigue, unspecified (01/26/23) Other reduced mobility (01/26/23) Past Medical History (Last Updated 01/25/23 @ 00:15 by Matt Lopez MD) Acute hypoxemic respiratory failure Acute on chronic systolic heart failure Acute respiratory failure with hypoxia Atrial fibrillation (~2014) BPH (benign prostatic hyperplasia) Chicken pox (~1959) Chronic back pain (~2009) Deep vein thrombosis (~1989) Foot pain (~1989) Fractures (~1989) GERD (gastroesophageal reflux disease) Hearing loss Irritable bowel syndrome (~2014) Low testosterone (~1989) Measles (~1959) Morbid obesity with BMI of 50.0-59.9, adult Nonischemic cardiomyopathy Peripheral neuropathy Pneumonia Pneumonia Presence of IVC filter Pulmonary edema (06/2022) Severe muscle deconditioning Sleep apnea (~1989) Thrombocytopenia Vision disorder Past Surgical History (Last Reviewed 01/16/23 @ 12:35 by Yahaira Mckeon DO) AICD (automatic cardioverter/defibrillator) present (06/13/22) Anesthesia Melcroft filter in place (~1992) History of back surgery History of surgery (~2015) History of tonsillectomy Visit Care Team Role Provider Type Brandon Houston MD Family Provider Physician Specialty: Internal Medicine Address: [address] [place] [address], [facility] [[email or web address] [address] [place], [address] Email: [email or web address] Matt Lopez MD Attending Provider Physician Primary Care Provider Referring Provider Specialty: Family Practice Obstetrics Address: [facility] [place], [address] Email: Physical Therapy Initial Evaluation PT-OP-A Visit Information Start: 01/26/23 17:24 Freq: Status: Active Protocol: Document 01/26/23 14:00 DCW (Rec: 01/26/23 17:27 DCW [id number]) Out-Patient Physical Therapy Visit Information Visit Information Visit Type Initial Evaluation Visit Start Time 14:00 Visit Stop Time 14:45 Total Visit Minutes 45 Visit Number 1 Number of JOGGLE PRESS OPERATOR Visits 0 Evaluation Information Evaluation Date 01/26/23 PT-OP-B Current Condition Start: 01/26/23 17:24 Freq: Status: Active Protocol: Document 01/26/23 14:00 DCW (Rec: 01/27/23 08:55 DCW [id number]) Current Condition History of Current Condition Onset Date February 2021 Current Complaints Weakness, poor balance, falls risk, physical debility History of Current Condition Pt is a 72 year old male presenting with a highly complex medical history. Pt is two years (February,) s/ p initial onset of health complications, which began with a severe bacterial respiratory infection. This resulted in a more than three month hospitalization, including requiring ventilation. Pt then discharged to a rehab facility for an additional four+ months, returning home in October. Pt began outpatient physical therapy at this facility in December,, secondary to LE weakness, decreased mobility, fatigue, increased burden of care, inability to ambulate, bilateral foot drop, and R shoulder dysfunction, all seemingly stemming from illness and extended hospitalization. Pt has experienced additional health complications since beginning rehab initially, including a massive [place], which resulted in a pacemaker placement in June. At that time, only one lead was placed due to difficulty with the anatomy of cardiac arteries. After pacemaker was implanted, pt once again resumed PT, only to stop once again in order to have surgery at [facility] in January,, to place second pacemaker lead. Pt was recovering fairly well from surgery, however just last week, pt came to the ED with hypotension, and was once again transferred back down to [facility] from 01/16/23-01/20. Pt finally arrived back home one week ago, and has slowly been increasing activity level. Pt feeling better since lead placement, increased recovery and does not fatigue as quickly. Continues to primarily mobilize in a manual w/c, occasionally uses FWW for short distances around the home. Wears bilateral AFOs due to LE weakness/footdrop. Has difficulty with raising arms overhead bilaterally. Has been compliant recent with prior HEP, homing to increase frequent or repetitions of exercises as tolerated. PT-OP-C Subjective Start: 01/26/23 17:24 Freq: Status: Active Protocol: Document 01/26/23 14:00 DCW (Rec: 01/26/23 17:27 DCW [id number]) OP-PT Subjective Patient Comments Patient Comments I walked some yesterday, that 's really the first I've walked any distance since I got home from the hospital last week. OP-PT Pain Assessment Pain Assessment Grid Paper Pain Assessment Grid Completed Yes: See scan PT-OP-E Functional Tests Start: 01/26/23 17:24 Freq: Status: Active Protocol: Document 01/26/23 14:00 DCW (Rec: 01/27/23 08:55 DCW [id number]) Functional Tests Five Times Sit to Stand Test Score 1:51.03 Comments standing from w/c, wearing B AFO PT-OP-G Mobility & Gait Start: 01/27/23 08:55 Freq: Status: Active Protocol: Document 01/26/23 14:00 DCW (Rec: 01/27/23 08:58 DCW [id number]) OP Mobility Evaluation Wheelchair Management Type of Wheelchair Manual Assessment Details Uses B feet to self-propel OP Gait Assessment Gait Gait Assistance Required: Contact Guard Assist Distance (Feet) 142 Able to Maintain Weight Bearing Status Yes During Gait Assistive Devices Assistive Device Gait Belt,Front Wheeled Walker Orthotic/Prosthetic Devices or Brace: Yes Gait Deviations General Gait Pattern Antalgic,Decreased Stride Length,Decreased Feet Clearance,Flexed Trunk,Step-to Gait Factors Limiting Gait Function Factors Limiting Gait Function Decreased Activity Tolerance, Decreased Strength,Pain,Poor Balance Comments Gait Comments Pt instructed to ambulate as much as he could tolerate. Was able to walk 142' in 3:20. PT-OP-K Range of Motion Start: 01/27/23 08:55 Freq: Status: Active Protocol: Document 01/26/23 14:00 DCW (Rec: 01/27/23 08:58 DCW [id number]) Shoulder Goniometric Range of Motion Shoulder Right Active Testing Position Sitting Flexion 73 Abduction 61 Left Active Testing Position Sitting Flexion 93 Abduction 88 PT-OP-M Strength Start: 01/26/23 17:24 Freq: Status: Active Protocol: Document 01/26/23 14:00 DCW (Rec: 01/27/23 08:55 DCW [id number]) Hip Strength Hip Manual Muscle Testing Right Flexion (L2) 3 Fair Abduction 3 Fair Adduction 3+ Fair+ Left Flexion (L2) 3 Fair Abduction 3 Fair Adduction 3+ Fair+ Knee Strength Knee Manual Muscle Testing Right Flexion (S2) 3 Fair Extension (L3) 4 Good Left Flexion (S2) 3 Fair Extension (L3) 4 Good PT-OP-T Assessment and Plan Start: 01/26/23 17:24 Freq: Status: Active Protocol: Document 01/26/23 14:00 DCW (Rec: 01/27/23 13:05 DCW [id number]) Physical Therapy Assessment Rehab Potential Rehabilitation Potential Good Evaluation Complexity Number of Personal Factors/Comorbidities 3 or More Number of Body Systems Impaired 4 or More Clinical Presentation at Evaluation Unstable Impairments Impairments Activity Tolerance,Balance, Functional Activities, Functional Mobility,Gait,Pain, Posture,ROM,Strength,Tone, Transfers Goals Three Impairment Completes 5x Sit to parking assistant 1 :51.03 Playground Director Goal (LTG) Pt to improve 5xStS score to < 60 seconds in order to display increased leg strength and improved transfer ability. LTG Duration 04/26/23 Two Impairment Pt ambulation limited to 142' in 3:20 using FWW. Fdc Goal (LTG) Pt to ambulate >800' during a 6 minute walk test to demonstrate improved activity tolerance and increased independent gait mobility LTG Duration 04/26/23 One Impairment Pt does not have an appropriate home exercise program Short Term Goal (STG) Pt to be independent and compliant with appropriate HEP STG Duration 02/27/23 Assessment Summary Assessment Pt presents with a highly complex medical history, currently greatly affected in his day to day function by ongoing weakness, poor activity tolerance, immobility , and decreased functional independence nearly two years after a severe bacterial respiratory infection. Over the past two years, pt has additionally experienced cardiac issues, including an MS and two surgeries to place pacemaker leads, which has limited his ability to participate in skilled therapy at different times. Pt is finally hopeful that his heart surgeries are now past, and is looking forward to continue to build up leg and shoulder strength, decrease burden of care, and decrease reliance on wheelchair by improving gait, balance, and activity tolerance. Physical Therapy Plan Frequency and Duration Frequency of Treatment 2x/Week Plan of Care Start Date 01/26/23 Plan of Care End Date 04/26/23 Therapeutic Interventions Therapeutic Interventions Balance Training,Coordination Training,Home Exercise Program ,Joint Mobilizations,Manual Therapy,Neuromuscular Re- education,Patient/Caregiver Education,Self-Care/Home Management,Soft Tissue Mobilization,Therapeutic Activities,Therapeutic Exercises Next Visit Focus/Plan Next Note Type Treatment Note Next Visit Plan LE strength, shoulder mobility , activty tolerance, balance and gait training
--- NOTE | 2023-01-30 14:46 | PT.OTN ---
Current Diagnoses Morbid (severe) obesity due to excess calories (01/30/23) Other chronic pain (01/30/23) Dorsalgia, unspecified (01/30/23) Muscle weakness (generalized) (01/30/23) Pain in right toe(s) (01/30/23) Pain in left toe(s) (01/30/23) Other abnormalities of gait and mobility (01/30/23) Other symptoms and signs involving the musculoskeletal system (01/30/23) Chronic fatigue, unspecified (01/30/23) Other reduced mobility (01/30/23) Physical Therapy Treatment Note PT-OP-A Visit Information Start: 01/26/23 17:24 Freq: Status: Active Protocol: Document 01/30/23 14:00 DCW (Rec: 01/30/23 14:46 DCW [id number]) Out-Patient Physical Therapy Visit Information Visit Information Visit Type Treatment Note Visit Start Time 14:00 Visit Stop Time 14:45 Total Visit Minutes 45 Visit Number 2 Number of LIVESTOCK YARD ATTENDANT Visits 0 Evaluation Information Evaluation Date 01/26/23 PT-OP-B Current Condition Start: 01/26/23 17:24 Freq: Status: Active Protocol: Document 01/26/23 14:00 DCW (Rec: 01/27/23 08:55 DCW [id number]) Current Condition History of Current Condition Onset Date February 2021 Current Complaints Weakness, poor balance, falls risk, physical debility History of Current Condition Pt is a 72 year old male presenting with a highly complex medical history. Pt is two years (February,) s/ p initial onset of health complications, which began with a severe bacterial respiratory infection. This resulted in a more than three month hospitalization, including requiring ventilation. Pt then discharged to a rehab facility for an additional four+ months, returning home in October. Pt begain outpatient physical therapy at this facility in December,, secondary to LE weakness, decreased mobility, fatigue, increased burden of care, inability to ambulate, bilateral foot drop, and R shoulder dysfunction, all seemingly stemming from illness and extended hospitalization. Pt has experienced additional health complications since beginning rehab initially, including a massive [place], which resulted in a pacemaker placement in June. At that time, only one lead was placed due to difficulty with the anatomy of cardiac arteries. After pacemaker was implanted, pt once again resumed PT, only to stop once again in order to have surgery at [facility] in January,, to place second pacemaker lead. Pt was recovering fairly well from surgery, however just last week, pt came to the ED with hypotension, and was once again transferred back down to [facility] from 01/16/23-01/20. Pt finally arrived back home one week ago, and has slowly been increasing activity level. Pt feeling better since lead placement, increased recovery and does not fatigue as quickly. Continues to primarily mobilize in a manual w/c, occasionally uses FWW for short distances around the home. Wears bilateral AFOs due to LE weakness/footdrop. Has difficulty with raising arms overhead bilaterally. Has been compliant recent with prior HEP, hoping to increase frequency or repetitions of exercises as tolerated. PT-OP-C Subjective Start: 01/26/23 17:24 Freq: Status: Active Protocol: Document 01/30/23 14:00 DCW (Rec: 01/30/23 14:46 DCW [id number]) OP-PT Subjective Patient Comments Patient Comments You better believe I want to try the steps. PT-OP-E Functional Tests Start: 01/26/23 17:24 Freq: Status: Active Protocol: Document 01/26/23 14:00 DCW (Rec: 01/27/23 08:55 DCW [id number]) Functional Tests Five Times Sit to Stand Test Score 1:51.03 Comments standing from w/c, wearing B AFO PT-OP-G Mobility & Gait Start: 01/27/23 08:55 Freq: Status: Active Protocol: Document 01/26/23 14:00 DCW (Rec: 01/27/23 08:58 DCW [id number]) OP Mobility Evaluation Wheelchair Management Type of Wheelchair Manual Assessment Details Uses B feet to self-propel OP Gait Assessment Gait Gait Assistance Required: Contact Guard Assist Distance (Feet) 142 Able to Maintain Weight Bearing Status Yes During Gait Assistive Devices Assistive Device Gait Belt,Front Wheeled Walker Orthotic/Prosthetic Devices or Brace: Yes Gait Deviations General Gait Pattern Antalgic,Decreased Stride Length,Decreased Feet Clearance,Flexed Trunk,Step-to Gait Factors Limiting Gait Function Factors Limiting Gait Function Decreased Activity Tolerance, Decreased Strength,Pain,Poor Balance Comments Gait Comments Pt instructed to ambulate as much as he could tolerate. Was able to walk 142' in 3:20. PT-OP-K Range of Motion Start: 01/27/23 08:55 Freq: Status: Active Protocol: Document 01/26/23 14:00 DCW (Rec: 01/27/23 08:58 DCW [id number]) Shoulder Goniometric Range of Motion Shoulder Right Active Testing Position Sitting Flexion 73 Abduction 61 Left Active Testing Position Sitting Flexion 93 Abduction 88 PT-OP-M Strength Start: 01/26/23 17:24 Freq: Status: Active Protocol: Document 01/26/23 14:00 DCW (Rec: 01/27/23 08:55 DCW [id number]) Hip Strength Hip Manual Muscle Testing Right Flexion (L2) 3 Fair Abduction 3 Fair Adduction 3+ Fair+ Left Flexion (L2) 3 Fair Abduction 3 Fair Adduction 3+ Fair+ Knee Strength Knee Manual Muscle Testing Right Flexion (S2) 3 Fair Extension (L3) 4 Good Left Flexion (S2) 3 Fair Extension (L3) 4 Good PT-OP-Q Treatments Start: 01/26/23 17:24 Freq: Status: Active Protocol: Document 01/30/23 14:00 DCW (Rec: 01/30/23 14:46 DCW [id number]) Gym Equipment Cable Column (Body Solid) Reverse Fly Details Cable column at chest height Resistance 10# Reps/Time x30 Triceps Details Triceps press Resistance 15# Reps/Time x30 Rows Resistance 30# Reps/Time x40 Biceps Curl Details Cable column in lowest position Resistance 10# Reps/Time x8 Lat Pull Down Resistance 30# Reps/Time x40 Shuttle Recovery Unilateral Squats Details AFOs removed Resistance 50# (two new bands) Shuttle Recovery Platform Stable Reps/Time x20 L, x25 R Bilateral Squats Details AFOs removed Resistance 100# (four new bands) Shuttle Recovery Platform Stable Therapeutic Exercises Sitting Exercises Overhead press Sitting Exercise Name Overhead press Side bilateral Resistance 10# /c PVC -> just PVC Gait Training Gait Activity Steps Description Ascend/Descend 4 steps Device Used B rail Level of Assistance CGA Distance/Duration 5 steps x1, 4 steps x5 Comments Backs down steps for descent PT-OP-T Assessment and Plan Start: 01/26/23 17:24 Freq: Status: Active Protocol: Document 01/30/23 14:00 DCW (Rec: 01/30/23 14:46 DCW [id number]) Physical Therapy Assessment Impairments Impairments Activity Tolerance,Balance, Functional Activities, Functional Mobility,Gait,Pain, Posture,ROM,Strength,Tone, Transfers Goals Three Impairment Completes 5x Sit to insole tacker 1 :51.03 Die Cutter Apprentice Goal (LTG) Pt to improve 5xStS score to < 60 seconds in order to display increased leg strength and improved transfer ability. LTG Duration 04/26/23 Two Impairment Pt ambulation limited to 142' in 3:20 using FWW. Fdc Goal (LTG) Pt to ambulate >800' during a 6 minute walk test to demonstrate improved activity tolerance and increased independent gait mobility LTG Duration 04/26/23 One Impairment Pt does not have an appropriate home exercise program Short Term Goal (STG) Pt to be independent and compliant with appropriate HEP STG Duration 02/27/23 Assessment Summary Assessment Good overall response for pt today after an extended break from PT. Required a reduction in resistance in nearly all activities, but was able to complete all exercises without expending all energy during today's session. Physical Therapy Plan Frequency and Duration Frequency of Treatment 2x/Week Plan of Care Start Date 01/26/23 Plan of Care End Date 04/26/23 Therapeutic Interventions Therapeutic Interventions Balance Training,Coordination Training,Home Exercise Program ,Joint Mobilizations,Manual Therapy,Neuromuscular Re- education,Patient/Caregiver Education,Self-Care/Home Management,Soft Tissue Mobilization,Therapeutic Activities,Therapeutic Exercises Next Visit Focus/Plan Next Note Type Treatment Note Next Visit Plan LE strength, shoulder mobility , activty tolerance, balance and gait training
--- NOTE | 2023-02-02 14:48 | PT.OTN ---
Current Diagnoses Morbid (severe) obesity due to excess calories (02/02/23) Other chronic pain (02/02/23) Dorsalgia, unspecified (02/02/23) Muscle weakness (generalized) (02/02/23) Pain in right toe(s) (02/02/23) Pain in left toe(s) (02/02/23) Other abnormalities of gait and mobility (02/02/23) Other symptoms and signs involving the musculoskeletal system (02/02/23) Chronic fatigue, unspecified (02/02/23) Other reduced mobility (02/02/23) Physical Therapy Treatment Note PT-OP-A Visit Information Start: 01/26/23 17:24 Freq: Status: Active Protocol: Document 02/02/23 14:00 DCW (Rec: 02/02/23 14:48 DCW [id number]) Out-Patient Physical Therapy Visit Information Visit Information Visit Type Treatment Note Visit Start Time 14:00 Visit Stop Time 14:45 Total Visit Minutes 45 Visit Number 3 Number of AGRICULTURE EXTENSION SPECIALIST Visits 0 Evaluation Information Evaluation Date 01/26/23 PT-OP-B Current Condition Start: 01/26/23 17:24 Freq: Status: Active Protocol: Document 01/26/23 14:00 DCW (Rec: 01/27/23 08:55 DCW [id number]) Current Condition History of Current Condition Onset Date February 2021 Current Complaints Weakness, poor balance, falls risk, physical debility History of Current Condition Pt is a 72 year old male presenting with a highly complex medical history. Pt is two years (February,) s/ p initial onset of health complications, which began with a severe bacterial respiratory infection. This resulted in a more than three month hospitalization, including requiring ventilation. Pt then discharged to a rehab facility for an additional four+ months, returning home in October. Pt begain outpatient physical therapy at this facility in December,, secondary to LE weakness, decreased mobility, fatigue, increased burden of care, inability to ambulate, bilateral foot drop, and R shoulder dysfunction, all seemingly stemming from illness and extended hospitalization. Pt has experienced additional health complications since beginning rehab initially, including a massive [place], which resulted in a pacemaker placement in June. At that time, only one lead was placed due to difficulty with the anatomy of cardiac arteries. After pacemaker was implanted, pt once again resumed PT, only to stop once again in order to have surgery at [facility] in January,, to place second pacemaker lead. Pt was recovering fairly well from surgery, however just last week, pt came to the ED with hypotension, and was once again transferred back down to [facility] from 01/16/23-01/20. Pt finally arrived back home one week ago, and has slowly been increasing activity level. Pt feeling better since lead placement, increased recovery and does not fatigue as quickly. Continues to primarily mobilize in a manual w/c, occasionally uses FWW for short distances around the home. Wears bilateral AFOs due to LE weakness/footdrop. Has difficulty with raising arms overhead bilaterally. Has been compliant recent with prior HEP, hoping to increase frequency or repetitions of exercises as tolerated. PT-OP-C Subjective Start: 01/26/23 17:24 Freq: Status: Active Protocol: Document 02/02/23 14:00 DCW (Rec: 02/02/23 14:48 DCW [id number]) OP-PT Subjective Patient Comments Patient Comments Pt admits his left arm is still pretty sore from his pacemaker lead placement. PT-OP-E Functional Tests Start: 01/26/23 17:24 Freq: Status: Active Protocol: Document 01/26/23 14:00 DCW (Rec: 01/27/23 08:55 DCW [id number]) Functional Tests Five Times Sit to Stand Test Score 1:51.03 Comments standing from w/c, wearing B AFO PT-OP-G Mobility & Gait Start: 01/27/23 08:55 Freq: Status: Active Protocol: Document 01/26/23 14:00 DCW (Rec: 01/27/23 08:58 DCW [id number]) OP Mobility Evaluation Wheelchair Management Type of Wheelchair Manual Assessment Details Uses B feet to self-propel OP Gait Assessment Gait Gait Assistance Required: Contact Guard Assist Distance (Feet) 142 Able to Maintain Weight Bearing Status Yes During Gait Assistive Devices Assistive Device Gait Belt,Front Wheeled Walker Orthotic/Prosthetic Devices or Brace: Yes Gait Deviations General Gait Pattern Antalgic,Decreased Stride Length,Decreased Feet Clearance,Flexed Trunk,Step-to Gait Factors Limiting Gait Function Factors Limiting Gait Function Decreased Activity Tolerance, Decreased Strength,Pain,Poor Balance Comments Gait Comments Pt instructed to ambulate as much as he could tolerate. Was able to walk 142' in 3:20. PT-OP-K Range of Motion Start: 01/27/23 08:55 Freq: Status: Active Protocol: Document 01/26/23 14:00 DCW (Rec: 01/27/23 08:58 DCW [id number]) Shoulder Goniometric Range of Motion Shoulder Right Active Testing Position Sitting Flexion 73 Abduction 61 Left Active Testing Position Sitting Flexion 93 Abduction 88 PT-OP-M Strength Start: 01/26/23 17:24 Freq: Status: Active Protocol: Document 01/26/23 14:00 DCW (Rec: 01/27/23 08:55 DCW [id number]) Hip Strength Hip Manual Muscle Testing Right Flexion (L2) 3 Fair Abduction 3 Fair Adduction 3+ Fair+ Left Flexion (L2) 3 Fair Abduction 3 Fair Adduction 3+ Fair+ Knee Strength Knee Manual Muscle Testing Right Flexion (S2) 3 Fair Extension (L3) 4 Good Left Flexion (S2) 3 Fair Extension (L3) 4 Good PT-OP-Q Treatments Start: 01/26/23 17:24 Freq: Status: Active Protocol: Document 02/02/23 14:00 DCW (Rec: 02/02/23 14:48 DCW [id number]) Gym Equipment Cable Column (Body Solid) Reverse Fly Details Cable column at chest height Resistance 10# Reps/Time x25 Triceps Details Triceps press Resistance 15# Reps/Time x20 Rows Resistance 40# Reps/Time x25 Biceps Curl Details Cable column in lowest position Resistance 10# Reps/Time x10 Lat Pull Down Resistance 40# Reps/Time x50 Shuttle Recovery Unilateral Squats Details AFOs removed Resistance 50# (two new bands) Shuttle Recovery Platform Stable Reps/Time x20 L, x20 R Bilateral Squats Details AFOs removed Resistance 100# (four new bands) Shuttle Recovery Platform Stable Reps/Time x40 Gait Training Gait Activity Steps Description Ascend/Descend 4 steps Device Used B rail Level of Assistance CGA Distance/Duration 5 steps x1, 4 steps x6 Comments Backs down steps for descent PT-OP-T Assessment and Plan Start: 01/26/23 17:24 Freq: Status: Active Protocol: Document 02/02/23 14:00 DCW (Rec: 11/02/23 14:48 DCW [id number]) Physical Therapy Assessment Impairments Impairments Activity Tolerance,Balance, Functional Activities, Functional Mobility,Gait,Pain, Posture,ROM,Strength,Tone, Transfers Goals Three Impairment Completes 5x Sit to sap administrator 1 :51.03 Refrigeration Service Technician Goal (LTG) Pt to improve 5xStS score to < 60 seconds in order to display increased leg strength and improved transfer ability. LTG Duration 04/26/23 Two Impairment Pt ambulation limited to 142' in 3:20 using FWW. Fpc Goal (LTG) Pt to ambulate >800' during a 6 minute walk test to demonstrate improved activity tolerance and increased independent gait mobility LTG Duration 04/26/23 One Impairment Pt does not have an appropriate home exercise program Short Term Goal (STG) Pt to be independent and compliant with appropriate HEP STG Duration 02/27/23 Assessment Summary Assessment Good response to increased resistance with some activities, pt able to perform one extra repetition on the stairs today. Pt feels like he has been recovering more quickly this time, has regained some good activity tolerance in a short amount of time. Physical Therapy Plan Frequency and Duration Frequency of Treatment 2x/Week Plan of Care Start Date 01/26/23 Plan of Care End Date 04/26/23 Therapeutic Interventions Therapeutic Interventions Balance Training,Coordination Training,Home Exercise Program ,Joint Mobilizations,Manual Therapy,Neuromuscular Re- education,Patient/Caregiver Education,Self-Care/Home Management,Soft Tissue Mobilization,Therapeutic Activities,Therapeutic Exercises Next Visit Focus/Plan Next Note Type Treatment Note Next Visit Plan LE strength, shoulder mobility , activty tolerance, balance and gait training
--- NOTE | 2023-02-17 11:16 | PT.OTN ---
Current Diagnoses Morbid (severe) obesity due to excess calories (02/17/23) Other chronic pain (02/17/23) Dorsalgia, unspecified (02/17/23) Muscle weakness (generalized) (02/17/23) Pain in right toe(s) (02/17/23) Pain in left toe(s) (02/17/23) Other abnormalities of gait and mobility (02/17/23) Other symptoms and signs involving the musculoskeletal system (02/17/23) Chronic fatigue, unspecified (02/17/23) Other reduced mobility (02/17/23) Physical Therapy Treatment Note PT-OP-A Visit Information Start: 01/26/23 17:24 Freq: Status: Active Protocol: Document 02/17/23 10:30 DCW (Rec: 02/17/23 11:16 DCW [id number]) Out-Patient Physical Therapy Visit Information Visit Information Visit Type Treatment Note Visit Start Time 10:30 Visit Stop Time 11:15 Total Visit Minutes 45 Visit Number 4 Number of SLURRY PLANT OPERATOR Visits 0 Evaluation Information Evaluation Date 01/26/23 PT-OP-B Current Condition Start: 01/26/23 17:24 Freq: Status: Active Protocol: Document 01/26/23 14:00 DCW (Rec: 01/27/23 08:55 DCW [id number]) Current Condition History of Current Condition Onset Date February 2021 Current Complaints Weakness, poor balance, falls risk, physical debility History of Current Condition Pt is a 72 year old male presenting with a highly complex medical history. Pt is two years (February,) s/ p initial onset of health complications, which began with a severe bacterial respiratory infection. This resulted in a more than three month hospitalization, including requiring ventilation. Pt then discharged to a rehab facility for an additional four+ months, returning home in October. Pt begain outpatient physical therapy at this facility in December,, secondary to LE weakness, decreased mobility, fatigue, increased burden of care, inability to ambulate, bilateral foot drop, and R shoulder dysfunction, all seemingly stemming from illness and extended hospitalization. Pt has experienced additional health complications since beginning rehab initially, including a massive [place], which resulted in a pacemaker placement in June. At that time, only one lead was placed due to difficulty with the anatomy of cardiac arteries. After pacemaker was implanted, pt once again resumed PT, only to stop once again in order to have surgery at [facility] in January,, to place second pacemaker lead. Pt was recovering fairly well from surgery, however just last week, pt came to the ED with hypotension, and was once again transferred back down to [facility] from 01/16/23-01/20. Pt finally arrived back home one week ago, and has slowly been increasing activity level. Pt feeling better since lead placement, increased recovery and does not fatigue as quickly. Continues to primarily mobilize in a manual w/c, occasionally uses FWW for short distances around the home. Wears bilateral AFOs due to LE weakness/footdrop. Has difficulty with raising arms overhead bilaterally. Has been compliant recent with prior HEP, hoping to increase frequency or repetitions of exercises as tolerated. PT-OP-C Subjective Start: 01/26/23 17:24 Freq: Status: Active Protocol: Document 02/17/23 10:30 DCW (Rec: 02/17/23 11:16 DCW [id number]) OP-PT Subjective Patient Comments Patient Comments Still doing some walking at home, feels speed is improving . PT-OP-E Functional Tests Start: 01/26/23 17:24 Freq: Status: Active Protocol: Document 01/26/23 14:00 DCW (Rec: 01/27/23 08:55 DCW [id number]) Functional Tests Five Times Sit to Stand Test Score 1:51.03 Comments standing from w/c, wearing B AFO PT-OP-G Mobility & Gait Start: 01/27/23 08:55 Freq: Status: Active Protocol: Document 01/26/23 14:00 DCW (Rec: 01/27/23 08:58 DCW [id number]) OP Mobility Evaluation Wheelchair Management Type of Wheelchair Manual Assessment Details Uses B feet to self-propel OP Gait Assessment Gait Gait Assistance Required: Contact Guard Assist Distance (Feet) 142 Able to Maintain Weight Bearing Status Yes During Gait Assistive Devices Assistive Device Gait Belt,Front Wheeled Walker Orthotic/Prosthetic Devices or Brace: Yes Gait Deviations General Gait Pattern Antalgic,Decreased Stride Length,Decreased Feet Clearance,Flexed Trunk,Step-to Gait Factors Limiting Gait Function Factors Limiting Gait Function Decreased Activity Tolerance, Decreased Strength,Pain,Poor Balance Comments Gait Comments Pt instructed to ambulate as much as he could tolerate. Was able to walk 142' in 3:20. PT-OP-K Range of Motion Start: 01/27/23 08:55 Freq: Status: Active Protocol: Document 01/26/23 14:00 DCW (Rec: 01/27/23 08:58 DCW [id number]) Shoulder Goniometric Range of Motion Shoulder Right Active Testing Position Sitting Flexion 73 Abduction 61 Left Active Testing Position Sitting Flexion 93 Abduction 88 PT-OP-M Strength Start: 01/26/23 17:24 Freq: Status: Active Protocol: Document 01/26/23 14:00 DCW (Rec: 01/27/23 08:55 DCW [id number]) Hip Strength Hip Manual Muscle Testing Right Flexion (L2) 3 Fair Abduction 3 Fair Adduction 3+ Fair+ Left Flexion (L2) 3 Fair Abduction 3 Fair Adduction 3+ Fair+ Knee Strength Knee Manual Muscle Testing Right Flexion (S2) 3 Fair Extension (L3) 4 Good Left Flexion (S2) 3 Fair Extension (L3) 4 Good PT-OP-Q Treatments Start: 01/26/23 17:24 Freq: Status: Active Protocol: Document 02/17/23 10:30 DCW (Rec: 02/17/23 11:16 DCW [id number]) Gym Equipment Cable Column (Body Solid) Reverse Fly Details Cable column at chest height Resistance 10# Reps/Time x50 Triceps Details Triceps press Resistance 15# Reps/Time x30 Rows Resistance 40# Reps/Time x40 Biceps Curl Details Cable column in lowest position Resistance 10# Reps/Time x10 Lat Pull Down Resistance 50# Reps/Time x40 Shuttle Recovery Unilateral Squats Details AFOs removed Resistance 62# (two new bands) Shuttle Recovery Platform Stable Reps/Time 2x10 each Bilateral Squats Details AFOs removed Resistance 100# (four new bands) Shuttle Recovery Platform Stable Reps/Time x50 Gait Training Gait Activity Steps Description Ascend/Descend 4 steps Device Used B rail Level of Assistance CGA Distance/Duration 5 steps x1, 4 steps x10 Comments Backs down steps for descent PT-OP-T Assessment and Plan Start: 01/26/23 17:24 Freq: Status: Active Protocol: Document 02/17/23 10:30 DCW (Rec: 02/17/23 11:16 DCW [id number]) Physical Therapy Assessment Impairments Impairments Activity Tolerance,Balance, Functional Activities, Functional Mobility,Gait,Pain, Posture,ROM,Strength,Tone, Transfers Goals Three Impairment Completes 5x Sit to marketing database coordinator 1 :51.03 Fci Goal (LTG) Pt to improve 5xStS score to < 60 seconds in order to display increased leg strength and improved transfer ability. LTG Duration 04/26/23 Two Impairment Pt ambulation limited to 142' in 3:20 using FWW. Cloth Mercerizer Back Tender Goal (LTG) Pt to ambulate >800' during a 6 minute walk test to demonstrate improved activity tolerance and increased independent gait mobility LTG Duration 04/26/23 One Impairment Pt does not have an appropriate home exercise program Short Term Goal (STG) Pt to be independent and compliant with appropriate HEP STG Duration 02/27/23 Assessment Summary Assessment Continues to respond well to therapy. BP measured mid- workout: 123/73. Pt able to perform 30-50 reps on many activities, should plan to increase resistance next visit . Physical Therapy Plan Frequency and Duration Frequency of Treatment 2x/Week Plan of Care Start Date 01/26/23 Plan of Care End Date 04/26/23 Therapeutic Interventions Therapeutic Interventions Balance Training,Coordination Training,Home Exercise Program ,Joint Mobilizations,Manual Therapy,Neuromuscular Re- education,Patient/Caregiver Education,Self-Care/Home Management,Soft Tissue Mobilization,Therapeutic Activities,Therapeutic Exercises Next Visit Focus/Plan Next Note Type Treatment Note Next Visit Plan LE strength, shoulder mobility , activty tolerance, balance and gait training
--- NOTE | 2023-02-21 16:49 | PT.OTN ---
Current Diagnoses Morbid (severe) obesity due to excess calories (02/21/23) Other chronic pain (02/21/23) Dorsalgia, unspecified (02/21/23) Muscle weakness (generalized) (02/21/23) Pain in right toe(s) (02/21/23) Pain in left toe(s) (02/21/23) Other abnormalities of gait and mobility (02/21/23) Other symptoms and signs involving the musculoskeletal system (02/21/23) Chronic fatigue, unspecified (02/21/23) Other reduced mobility (02/21/23) Physical Therapy Treatment Note PT-OP-A Visit Information Start: 01/26/23 17:24 Freq: Status: Active Protocol: Document 02/21/23 16:00 DCW (Rec: 02/21/23 16:49 DCW [id number]) Out-Patient Physical Therapy Visit Information Visit Information Visit Type Treatment Note Visit Start Time 16:00 Visit Stop Time 16:45 Total Visit Minutes 45 Visit Number 5 Number of POWERHOUSE MECHANIC APPRENTICE Visits 0 Evaluation Information Evaluation Date 01/26/23 PT-OP-B Current Condition Start: 01/26/23 17:24 Freq: Status: Active Protocol: Document 01/26/23 14:00 DCW (Rec: 01/27/23 08:55 DCW [id number]) Current Condition History of Current Condition Onset Date February 2021 Current Complaints Weakness, poor balance, falls risk, physical debility History of Current Condition Pt is a 72 year old male presenting with a highly complex medical history. Pt is two years (February,) s/ p initial onset of health complications, which began with a severe bacterial respiratory infection. This resulted in a more than three month hospitalization, including requiring ventilation. Pt then discharged to a rehab facility for an additional four+ months, returning home in October. Pt begain outpatient physical therapy at this facility in December,, secondary to LE weakness, decreased mobility, fatigue, increased burden of care, inability to ambulate, bilateral foot drop, and R shoulder dysfunction, all seemingly stemming from illness and extended hospitalization. Pt has experienced additional health complications since beginning rehab initially, including a massive [place], which resulted in a pacemaker placement in June. At that time, only one lead was placed due to difficulty with the anatomy of cardiac arteries. After pacemaker was implanted, pt once again resumed PT, only to stop once again in order to have surgery at [facility] in January,, to place second pacemaker lead. Pt was recovering fairly well from surgery, however just last week, pt came to the ED with hypotension, and was once again transferred back down to [facility] from 01/16/23-01/20. Pt finally arrived back home one week ago, and has slowly been increasing activity level. Pt feeling better since lead placement, increased recovery and does not fatigue as quickly. Continues to primarily mobilize in a manual w/c, occasionally uses FWW for short distances around the home. Wears bilateral AFOs due to LE weakness/footdrop. Has difficulty with raising arms overhead bilaterally. Has been compliant recent with prior HEP, hoping to increase frequency or repetitions of exercises as tolerated. PT-OP-C Subjective Start: 01/26/23 17:24 Freq: Status: Active Protocol: Document 02/21/23 16:00 DCW (Rec: 02/21/23 16:49 DCW [id number]) OP-PT Subjective Patient Comments Patient Comments Pt a little tired today with a later appointment than usual. PT-OP-E Functional Tests Start: 01/26/23 17:24 Freq: Status: Active Protocol: Document 01/26/23 14:00 DCW (Rec: 01/27/23 08:55 DCW [id number]) Functional Tests Five Times Sit to Stand Test Score 1:51.03 Comments standing from w/c, wearing B AFO PT-OP-G Mobility & Gait Start: 01/27/23 08:55 Freq: Status: Active Protocol: Document 01/26/23 14:00 DCW (Rec: 01/27/23 08:58 DCW [id number]) OP Mobility Evaluation Wheelchair Management Type of Wheelchair Manual Assessment Details Uses B feet to self-propel OP Gait Assessment Gait Gait Assistance Required: Contact Guard Assist Distance (Feet) 142 Able to Maintain Weight Bearing Status Yes During Gait Assistive Devices Assistive Device Gait Belt,Front Wheeled Walker Orthotic/Prosthetic Devices or Brace: Yes Gait Deviations General Gait Pattern Antalgic,Decreased Stride Length,Decreased Feet Clearance,Flexed Trunk,Step-to Gait Factors Limiting Gait Function Factors Limiting Gait Function Decreased Activity Tolerance, Decreased Strength,Pain,Poor Balance Comments Gait Comments Pt instructed to ambulate as much as he could tolerate. Was able to walk 142' in 3:20. PT-OP-K Range of Motion Start: 01/27/23 08:55 Freq: Status: Active Protocol: Document 01/26/23 14:00 DCW (Rec: 01/27/23 08:58 DCW [id number]) Shoulder Goniometric Range of Motion Shoulder Right Active Testing Position Sitting Flexion 73 Abduction 61 Left Active Testing Position Sitting Flexion 93 Abduction 88 PT-OP-M Strength Start: 01/26/23 17:24 Freq: Status: Active Protocol: Document 01/26/23 14:00 DCW (Rec: 01/27/23 08:55 DCW [id number]) Hip Strength Hip Manual Muscle Testing Right Flexion (L2) 3 Fair Abduction 3 Fair Adduction 3+ Fair+ Left Flexion (L2) 3 Fair Abduction 3 Fair Adduction 3+ Fair+ Knee Strength Knee Manual Muscle Testing Right Flexion (S2) 3 Fair Extension (L3) 4 Good Left Flexion (S2) 3 Fair Extension (L3) 4 Good PT-OP-Q Treatments Start: 01/26/23 17:24 Freq: Status: Active Protocol: Document 02/21/23 16:00 DCW (Rec: 02/21/23 16:49 DCW [id number]) Gym Equipment Cable Column (Body Solid) Horizontal Adduction Details Cable column at chest height Resistance 10# Reps/Time x20 each Reverse Fly Details Cable column at chest height Resistance 15# Reps/Time x50 Triceps Details Triceps press Resistance 15# Reps/Time x50 Rows Resistance 60# Reps/Time x10 Biceps Curl Details Cable column in lowest position Resistance 10# Reps/Time x10 Lat Pull Down Resistance 60# Reps/Time x20 Shuttle Recovery Unilateral Squats Details AFOs removed Resistance 62# (two new bands) Shuttle Recovery Platform Stable Reps/Time x20 each Bilateral Squats Details AFOs removed Resistance 100# (four new bands) Shuttle Recovery Platform Stable Reps/Time x50 Gait Training Gait Activity Steps Description Ascend/Descend 6 steps Device Used B rail Level of Assistance CGA Distance/Duration 3 steps x2, 2 steps x1 Comments Backs down steps for descent PT-OP-T Assessment and Plan Start: 01/26/23 17:24 Freq: Status: Active Protocol: Document 02/21/23 16:00 DCW (Rec: 02/21/23 16:49 RAQUEL [id number]) Physical Therapy Assessment Assessment Summary Assessment Continues to progress well, addition of 6 steps vs 4 steps was a significant increase in struggle, but pt was at least able to perform three reps up and down. Physical Therapy Plan Frequency and Duration Frequency of Treatment 2x/Week Plan of Care Start Date 01/26/23 Plan of Care End Date 04/26/23 Therapeutic Interventions Therapeutic Interventions Balance Training,Coordination Training,Home Exercise Program ,Joint Mobilizations,Manual Therapy,Neuromuscular Re- education,Patient/Caregiver Education,Self-Care/Home Management,Soft Tissue Mobilization,Therapeutic Activities,Therapeutic Exercises Next Visit Focus/Plan Next Note Type Treatment Note Next Visit Plan LE strength, shoulder mobility , activity tolerance, balance and gait training
--- NOTE | 2023-02-28 14:33 | PT.OTN ---
Current Diagnoses Morbid (severe) obesity due to excess calories (02/28/23) Other chronic pain (02/28/23) Dorsalgia, unspecified (02/28/23) Muscle weakness (generalized) (02/28/23) Pain in right toe(s) (02/28/23) Pain in left toe(s) (02/28/23) Other abnormalities of gait and mobility (02/28/23) Other symptoms and signs involving the musculoskeletal system (02/28/23) Chronic fatigue, unspecified (02/28/23) Other reduced mobility (02/28/23) Physical Therapy Treatment Note PT-OP-A Visit Information Start: 01/26/23 17:24 Freq: Status: Active Protocol: Document 02/28/23 13:45 DCW (Rec: 02/28/23 14:32 DCW [id number]) Out-Patient Physical Therapy Visit Information Visit Information Visit Type Treatment Note Visit Start Time 13:45 Visit Stop Time 14:30 Total Visit Minutes 45 Visit Number 6 Number of NUT SHELLER Visits 0 Evaluation Information Evaluation Date 01/26/23 PT-OP-B Current Condition Start: 01/26/23 17:24 Freq: Status: Active Protocol: Document 01/26/23 14:00 DCW (Rec: 01/27/23 08:55 DCW [id number]) Current Condition History of Current Condition Onset Date February 2021 Current Complaints Weakness, poor balance, falls risk, physical debility History of Current Condition Pt is a 72 year old male presenting with a highly complex medical history. Pt is two years (February,) s/ p initial onset of health complications, which began with a severe bacterial respiratory infection. This resulted in a more than three month hospitalization, including requiring ventilation. Pt then discharged to a rehab facility for an additional four+ months, returning home in October. Pt begain outpatient physical therapy at this facility in December,, secondary to LE weakness, decreased mobility, fatigue, increased burden of care, inability to ambulate, bilateral foot drop, and R shoulder dysfunction, all seemingly stemming from illness and extended hospitalization. Pt has experienced additional health complications since beginning rehab initially, including a massive [place], which resulted in a pacemaker placement in June. At that time, only one lead was placed due to difficulty with the anatomy of cardiac arteries. After pacemaker was implanted, pt once again resumed PT, only to stop once again in order to have surgery at [facility] in January,, to place second pacemaker lead. Pt was recovering fairly well from surgery, however just last week, pt came to the ED with hypotension, and was once again transferred back down to [facility] from 01/16/23-01/20. Pt finally arrived back home one week ago, and has slowly been increasing activity level. Pt feeling better since lead placement, increased recovery and does not fatigue as quickly. Continues to primarily mobilize in a manual w/c, occasionally uses FWW for short distances around the home. Wears bilateral AFOs due to LE weakness/footdrop. Has difficulty with raising arms overhead bilaterally. Has been compliant recent with prior HEP, hoping to increase frequency or repetitions of exercises as tolerated. PT-OP-C Subjective Start: 01/26/23 17:24 Freq: Status: Active Protocol: Document 02/28/23 13:45 DCW (Rec: 02/28/23 14:33 DCW [id number]) OP-PT Subjective Patient Comments Patient Comments Pt reports he is feeling pretty good today, didn't do too much exercise earlier today to ensure he wasn't too tired for PT today. PT-OP-E Functional Tests Start: 01/26/23 17:24 Freq: Status: Active Protocol: Document 01/26/23 14:00 DCW (Rec: 01/27/23 08:55 DCW [id number]) Functional Tests Five Times Sit to Stand Test Score 1:51.03 Comments standing from w/c, wearing B AFO PT-OP-G Mobility & Gait Start: 01/27/23 08:55 Freq: Status: Active Protocol: Document 01/26/23 14:00 DCW (Rec: 01/27/23 08:58 DCW [id number]) OP Mobility Evaluation Wheelchair Management Type of Wheelchair Manual Assessment Details Uses B feet to self-propel OP Gait Assessment Gait Gait Assistance Required: Contact Guard Assist Distance (Feet) 142 Able to Maintain Weight Bearing Status Yes During Gait Assistive Devices Assistive Device Gait Belt,Front Wheeled Walker Orthotic/Prosthetic Devices or Brace: Yes Gait Deviations General Gait Pattern Antalgic,Decreased Stride Length,Decreased Feet Clearance,Flexed Trunk,Step-to Gait Factors Limiting Gait Function Factors Limiting Gait Function Decreased Activity Tolerance, Decreased Strength,Pain,Poor Balance Comments Gait Comments Pt instructed to ambulate as much as he could tolerate. Was able to walk 142' in 3:20. PT-OP-K Range of Motion Start: 01/27/23 08:55 Freq: Status: Active Protocol: Document 01/26/23 14:00 DCW (Rec: 01/27/23 08:58 DCW [id number]) Shoulder Goniometric Range of Motion Shoulder Right Active Testing Position Sitting Flexion 73 Abduction 61 Left Active Testing Position Sitting Flexion 93 Abduction 88 PT-OP-M Strength Start: 01/26/23 17:24 Freq: Status: Active Protocol: Document 01/26/23 14:00 DCW (Rec: 01/27/23 08:55 DCW [id number]) Hip Strength Hip Manual Muscle Testing Right Flexion (L2) 3 Fair Abduction 3 Fair Adduction 3+ Fair+ Left Flexion (L2) 3 Fair Abduction 3 Fair Adduction 3+ Fair+ Knee Strength Knee Manual Muscle Testing Right Flexion (S2) 3 Fair Extension (L3) 4 Good Left Flexion (S2) 3 Fair Extension (L3) 4 Good PT-OP-Q Treatments Start: 01/26/23 17:24 Freq: Status: Active Protocol: Document 02/28/23 13:45 DCW (Rec: 02/28/23 14:32 DCW [id number]) Gym Equipment Cable Column (Body Solid) Horizontal Adduction Details Cable column at chest height Resistance 10# Reps/Time x30 each Reverse Fly Details Cable column at chest height Resistance 20# Reps/Time x10 Triceps Details Triceps press Resistance 20# Reps/Time x20 Rows Resistance 60# Reps/Time x10 Biceps Curl Details Cable column in lowest position Resistance 10# Reps/Time x10 Lat Pull Down Resistance 60# Reps/Time x20 Shuttle Recovery Unilateral Squats Details AFOs removed Resistance 62# (two new bands) Shuttle Recovery Platform Stable Reps/Time x10 L, x5 R Bilateral Squats Details AFOs removed Resistance 125# (four new bands) Shuttle Recovery Platform Stable Reps/Time x25 Gait Training Gait Activity Steps Description Ascend/Descend 6 steps Device Used B rail Level of Assistance CGA Distance/Duration 3 steps x1, 2 steps x3 Comments Backs down steps for descent PT-OP-T Assessment and Plan Start: 01/26/23 17:24 Freq: Status: Active Protocol: Document 02/28/23 13:45 DCW (Rec: 02/28/23 14:32 DCW [id number]) Physical Therapy Assessment Impairments Impairments Activity Tolerance,Balance, Functional Activities, Functional Mobility,Gait,Pain, Posture,ROM,Strength,Tone, Transfers Goals Three Impairment Completes 5x Sit to offset printer 1 :51.03 [facility] Goal (LTG) Pt to improve 5xStS score to < 60 seconds in order to display increased leg strength and improved transfer ability. LTG Duration 04/26/23 Two Impairment Pt ambulation limited to 142' in 3:20 using FWW. [facility] Goal (LTG) Pt to ambulate >800' during a 6 minute walk test to demonstrate improved activity tolerance and increased independent gait mobility LTG Duration 04/26/23 One Impairment Pt does not have an appropriate home exercise program Short Term Goal (STG) Pt to be independent and compliant with appropriate HEP STG Duration 02/27/23 Assessment Summary Assessment Increased resistance on most strengthening activities today , pt tolerated well, but obviously exhibited decreased activity tolerance with increased resistance. Physical Therapy Plan Frequency and Duration Frequency of Treatment 2x/Week Plan of Care Start Date 01/26/23 Plan of Care End Date 04/26/23 Therapeutic Interventions Therapeutic Interventions Balance Training,Coordination Training,Home Exercise Program ,Joint Mobilizations,Manual Therapy,Neuromuscular Re- education,Patient/Caregiver Education,Self-Care/Home Management,Soft Tissue Mobilization,Therapeutic Activities,Therapeutic Exercises Next Visit Focus/Plan Next Note Type Treatment Note Next Visit Plan LE strength, shoulder mobility , activty tolerance, balance and gait training
--- NOTE | 2023-03-03 14:28 | PT.OTN ---
Current Diagnoses Morbid (severe) obesity due to excess calories (03/03/23) Other chronic pain (03/03/23) Dorsalgia, unspecified (03/03/23) Muscle weakness (generalized) (03/03/23) Pain in right toe(s) (03/03/23) Pain in left toe(s) (03/03/23) Other abnormalities of gait and mobility (03/03/23) Other symptoms and signs involving the musculoskeletal system (03/03/23) Chronic fatigue, unspecified (03/03/23) Other reduced mobility (03/03/23) Physical Therapy Treatment Note PT-OP-A Visit Information Start: 01/26/23 17:24 Freq: Status: Active Protocol: Document 03/03/23 13:45 DCW (Rec: 03/03/23 14:28 DCW [id number]) Out-Patient Physical Therapy Visit Information Visit Information Visit Type Treatment Note Visit Start Time 13:45 Visit Stop Time 14:30 Total Visit Minutes 45 Visit Number 7 Number of SPECIAL FORCES SPECIALIST Visits 0 Evaluation Information Evaluation Date 01/26/23 PT-OP-B Current Condition Start: 01/26/23 17:24 Freq: Status: Active Protocol: Document 01/26/23 14:00 DCW (Rec: 01/27/23 08:55 DCW [id number]) Current Condition History of Current Condition Onset Date February 2021 Current Complaints Weakness, poor balance, falls risk, physical debility History of Current Condition Pt is a 72 year old male presenting with a highly complex medical history. Pt is two years (February,) s/ p initial onset of health complications, which began with a severe bacterial respiratory infection. This resulted in a more than three month hospitalization, including requiring ventilation. Pt then discharged to a rehab facility for an additional four+ months, returning home in October. Pt begain outpatient physical therapy at this facility in December,, secondary to LE weakness, decreased mobility, fatigue, increased burden of care, inability to ambulate, bilateral foot drop, and R shoulder dysfunction, all seemingly stemming from illness and extended hospitalization. Pt has experienced additional health complications since beginning rehab initially, including a massive [place], which resulted in a pacemaker placement in June. At that time, only one lead was placed due to difficulty with the anatomy of cardiac arteries. After pacemaker was implanted, pt once again resumed PT, only to stop once again in order to have surgery at [facility] in January,, to place second pacemaker lead. Pt was recovering fairly well from surgery, however just last week, pt came to the ED with hypotension, and was once again transferred back down to [facility] from 01/16/23-01/20. Pt finally arrived back home one week ago, and has slowly been increasing activity level. Pt feeling better since lead placement, increased recovery and does not fatigue as quickly. Continues to primarily mobilize in a manual w/c, occasionally uses FWW for short distances around the home. Wears bilateral AFOs due to LE weakness/footdrop. Has difficulty with raising arms overhead bilaterally. Has been compliant recent with prior HEP, hoping to increase frequency or repetitions of exercises as tolerated. PT-OP-C Subjective Start: 01/26/23 17:24 Freq: Status: Active Protocol: Document 03/03/23 13:45 DCW (Rec: 03/03/23 14:28 DCW [id number]) OP-PT Subjective Patient Comments Patient Comments I've never been that sore in my life following last visit when resistance was increased in most exercises. PT-OP-E Functional Tests Start: 01/26/23 17:24 Freq: Status: Active Protocol: Document 01/26/23 14:00 DCW (Rec: 01/27/23 08:55 DCW [id number]) Functional Tests Five Times Sit to Stand Test Score 1:51.03 Comments standing from w/c, wearing B AFO PT-OP-G Mobility & Gait Start: 01/27/23 08:55 Freq: Status: Active Protocol: Document 01/26/23 14:00 DCW (Rec: 01/27/23 08:58 DCW [id number]) OP Mobility Evaluation Wheelchair Management Type of Wheelchair Manual Assessment Details Uses B feet to self-propel OP Gait Assessment Gait Gait Assistance Required: Contact Guard Assist Distance (Feet) 142 Able to Maintain Weight Bearing Status Yes During Gait Assistive Devices Assistive Device Gait Belt,Front Wheeled Walker Orthotic/Prosthetic Devices or Brace: Yes Gait Deviations General Gait Pattern Antalgic,Decreased Stride Length,Decreased Feet Clearance,Flexed Trunk,Step-to Gait Factors Limiting Gait Function Factors Limiting Gait Function Decreased Activity Tolerance, Decreased Strength,Pain,Poor Balance Comments Gait Comments Pt instructed to ambulate as much as he could tolerate. Was able to walk 142' in 3:20. PT-OP-K Range of Motion Start: 01/27/23 08:55 Freq: Status: Active Protocol: Document 01/26/23 14:00 DCW (Rec: 01/27/23 08:58 DCW [id number]) Shoulder Goniometric Range of Motion Shoulder Right Active Testing Position Sitting Flexion 73 Abduction 61 Left Active Testing Position Sitting Flexion 93 Abduction 88 PT-OP-M Strength Start: 01/26/23 17:24 Freq: Status: Active Protocol: Document 01/26/23 14:00 DCW (Rec: 01/27/23 08:55 DCW [id number]) Hip Strength Hip Manual Muscle Testing Right Flexion (L2) 3 Fair Abduction 3 Fair Adduction 3+ Fair+ Left Flexion (L2) 3 Fair Abduction 3 Fair Adduction 3+ Fair+ Knee Strength Knee Manual Muscle Testing Right Flexion (S2) 3 Fair Extension (L3) 4 Good Left Flexion (S2) 3 Fair Extension (L3) 4 Good PT-OP-Q Treatments Start: 01/26/23 17:24 Freq: Status: Active Protocol: Document 03/03/23 13:45 DCW (Rec: 03/03/23 14:28 DCW [id number]) Gym Equipment Cable Column (Body Solid) Horizontal Adduction Details Cable column at chest height Resistance 10# Reps/Time x35 each Reverse Fly Details Cable column at chest height Resistance 15# Reps/Time x35 Triceps Details Triceps press Resistance 20# Reps/Time x35 Rows Resistance 50# Reps/Time x25 Biceps Curl Details Cable column in lowest position Resistance 10# Reps/Time x10 Lat Pull Down Resistance 50# Reps/Time x35 Shuttle Recovery Unilateral Squats Details AFOs removed Resistance 62# (two new bands) Shuttle Recovery Platform Stable Reps/Time x20 each Bilateral Squats Details AFOs removed Resistance 100# (four new bands) Shuttle Recovery Platform Stable Reps/Time 2x20 Gait Training Gait Activity Steps Description Ascend/Descend 6 steps Device Used B rail Level of Assistance CGA Distance/Duration 3 steps x1, 2 steps x3 Comments Backs down steps for descent PT-OP-T Assessment and Plan Start: 01/26/23 17:24 Freq: Status: Active Protocol: Document 03/03/23 13:45 DCW (Rec: 03/03/23 14:28 DCW [id number]) Physical Therapy Assessment Impairments Impairments Activity Tolerance,Balance, Functional Activities, Functional Mobility,Gait,Pain, Posture,ROM,Strength,Tone, Transfers Goals Three Impairment 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 LTG Duration 04/26/23 Two Impairment Pt ambulation limited to 142' in 3:20 using FWW. [employer] Goal (LTG) Pt to ambulate >800' during a 6 minute walk test to demonstrate improved activity tolerance and increased independent gait mobility LTG Duration 04/26/23 One Impairment Pt does not have an appropriate home exercise program Short Term Goal (STG) Pt to be independent and compliant with appropriate HEP STG Duration 02/27/23 Assessment Summary Assessment Decreased resistance on most activities back to prior levels due to severe response following last visit. Pt much more comfortable by end of session, but is hoping to increase resistance again at somepoint in the future. Continue to improving strength , activity tolerance, and gait . Physical Therapy Plan Frequency and Duration Frequency of Treatment 2x/Week Plan of Care Start Date 01/26/23 Plan of Care End Date 04/26/23 Therapeutic Interventions Therapeutic Interventions Balance Training,Coordination Training,Home Exercise Program ,Joint Mobilizations,Manual Therapy,Neuromuscular Re- education,Patient/Caregiver Education,Self-Care/Home Management,Soft Tissue Mobilization,Therapeutic Activities,Therapeutic Exercises Next Visit Focus/Plan Next Note Type Treatment Note Next Visit Plan LE strength, shoulder mobility , activty tolerance, balance and gait training
--- NOTE | 2023-03-06 14:34 | PT.OTN ---
Current Diagnoses Morbid (severe) obesity due to excess calories (03/06/23) Other chronic pain (03/06/23) Dorsalgia, unspecified (03/06/23) Muscle weakness (generalized) (03/06/23) Pain in right toe(s) (03/06/23) Pain in left toe(s) (03/06/23) Other abnormalities of gait and mobility (03/06/23) Other symptoms and signs involving the musculoskeletal system (03/06/23) Chronic fatigue, unspecified (03/06/23) Other reduced mobility (03/06/23) Physical Therapy Treatment Note PT-OP-A Visit Information Start: 01/26/23 17:24 Freq: Status: Active Protocol: Document 03/06/23 13:45 DCW (Rec: 03/06/23 14:34 DCW [id number]) Out-Patient Physical Therapy Visit Information Visit Information Visit Type Treatment Note Visit Start Time 13:45 Visit Stop Time 14:30 Total Visit Minutes 45 Visit Number 8 Number of REACH TRUCK OPERATOR Visits 0 Evaluation Information Evaluation Date 01/26/23 PT-OP-B Current Condition Start: 01/26/23 17:24 Freq: Status: Active Protocol: Document 01/26/23 14:00 DCW (Rec: 01/27/23 08:55 DCW [id number]) Current Condition History of Current Condition Onset Date February 2021 Current Complaints Weakness, poor balance, falls risk, physical debility History of Current Condition Pt is a 72 year old male presenting with a highly complex medical history. Pt is two years (February,) s/ p initial onset of health complications, which began with a severe bacterial respiratory infection. This resulted in a more than three month hospitalization, including requiring ventilation. Pt then discharged to a rehab facility for an additional four+ months, returning home in October. Pt begain outpatient physical therapy at this facility in December,, secondary to LE weakness, decreased mobility, fatigue, increased burden of care, inability to ambulate, bilateral foot drop, and R shoulder dysfunction, all seemingly stemming from illness and extended hospitalization. Pt has experienced additional health complications since beginning rehab initially, including a massive [place], which resulted in a pacemaker placement in June. At that time, only one lead was placed due to difficulty with the anatomy of cardiac arteries. After pacemaker was implanted, pt once again resumed PT, only to stop once again in order to have surgery at [facility] ([place], [place]) in January,, to place second pacemaker lead. Pt was recovering fairly well from surgery, however just last week, pt came to the ED with hypotension, and was once again transferred back down to [facility] ([place], [place]) from 01/16/23-01/20. Pt finally arrived back home one week ago, and has slowly been increasing activity level. Pt feeling better since lead placement, increased recovery and does not fatigue as quickly. Continues to primarily mobilize in a manual w/c, occasionally uses FWW for short distances around the home. Wears bilateral AFOs due to LE weakness/footdrop. Has difficulty with raising arms overhead bilaterally. Has been compliant recent with prior HEP, hoping to increase frequency or repetitions of exercises as tolerated. PT-OP-C Subjective Start: 01/26/23 17:24 Freq: Status: Active Protocol: Document 03/06/23 13:45 DCW (Rec: 03/06/23 14:34 DCW [id number]) OP-PT Subjective Patient Comments Patient Comments Pt reports he was able to walk three laps around his kitchen , which is the most he's even done, and did it two days in a row PT-OP-E Functional Tests Start: 01/26/23 17:24 Freq: Status: Active Protocol: Document 01/26/23 14:00 DCW (Rec: 01/27/23 08:55 DCW [id number]) Functional Tests Five Times Sit to Stand Test Score 1:51.03 Comments standing from w/c, wearing B AFO PT-OP-G Mobility & Gait Start: 01/27/23 08:55 Freq: Status: Active Protocol: Document 01/26/23 14:00 DCW (Rec: 01/27/23 08:58 DCW [id number]) OP Mobility Evaluation Wheelchair Management Type of Wheelchair Manual Assessment Details Uses B feet to self-propel OP Gait Assessment Gait Gait Assistance Required: Contact Guard Assist Distance (Feet) 142 Able to Maintain Weight Bearing Status Yes During Gait Assistive Devices Assistive Device Gait Belt,Front Wheeled Walker Orthotic/Prosthetic Devices or Brace: Yes Gait Deviations General Gait Pattern Antalgic,Decreased Stride Length,Decreased Feet Clearance,Flexed Trunk,Step-to Gait Factors Limiting Gait Function Factors Limiting Gait Function Decreased Activity Tolerance, Decreased Strength,Pain,Poor Balance Comments Gait Comments Pt instructed to ambulate as much as he could tolerate. Was able to walk 142' in 3:20. PT-OP-K Range of Motion Start: 01/27/23 08:55 Freq: Status: Active Protocol: Document 01/26/23 14:00 DCW (Rec: 01/27/23 08:58 DCW [id number]) Shoulder Goniometric Range of Motion Shoulder Right Active Testing Position Sitting Flexion 73 Abduction 61 Left Active Testing Position Sitting Flexion 93 Abduction 88 PT-OP-M Strength Start: 01/26/23 17:24 Freq: Status: Active Protocol: Document 01/26/23 14:00 DCW (Rec: 01/27/23 08:55 DCW [id number]) Hip Strength Hip Manual Muscle Testing Right Flexion (L2) 3 Fair Abduction 3 Fair Adduction 3+ Fair+ Left Flexion (L2) 3 Fair Abduction 3 Fair Adduction 3+ Fair+ Knee Strength Knee Manual Muscle Testing Right Flexion (S2) 3 Fair Extension (L3) 4 Good Left Flexion (S2) 3 Fair Extension (L3) 4 Good PT-OP-Q Treatments Start: 01/26/23 17:24 Freq: Status: Active Protocol: Document 03/06/23 13:45 DCW (Rec: 03/06/23 14:34 DCW [id number]) Gym Equipment Cable Column (Body Solid) Horizontal Adduction Details Cable column at chest height Resistance 15# Reps/Time x20 each Reverse Fly Details Cable column at chest height Resistance 20# Reps/Time x40 Triceps Details Triceps press Resistance 20# Reps/Time x35 Rows Resistance 50# Reps/Time x20 Biceps Curl Details Cable column in lowest position Resistance 10# Reps/Time x10 Lat Pull Down Resistance 50# Reps/Time x40 Shuttle Recovery Unilateral Squats Details AFOs removed Resistance 62# (two new bands) Shuttle Recovery Platform Stable Reps/Time x20 each Bilateral Squats Details AFOs removed Resistance 100# (four new bands) Shuttle Recovery Platform Stable Reps/Time x40 Gait Training Gait Activity Steps Description Ascend/Descend 6 steps Device Used B rail Level of Assistance CGA Distance/Duration 3 steps x1, 2 steps x3 Comments Backs down steps for descent PT-OP-T Assessment and Plan Start: 10/26/23 17:24 Freq: Status: Active Protocol: Document 03/06/23 13:45 DCW (Rec: 03/06/23 14:34 DCW [id number]) Physical Therapy Assessment Impairments Impairments Activity Tolerance,Balance, Functional Activities, Functional Mobility,Gait,Pain, Posture,ROM,Strength,Tone, Transfers Goals Three Impairment Completes 5x Sit to golf course superintendent 1 :51.03 Battery Vent Plug Inserter Goal (LTG) Pt to improve 5xStS score to < 60 seconds in order to display increased leg strength and improved transfer ability. LTG Duration 04/26/23 Two Impairment Pt ambulation limited to 142' in 3:20 using FWW. Mcfp Goal (LTG) Pt to ambulate >800' during a 6 minute walk test to demonstrate improved activity tolerance and increased independent gait mobility LTG Duration 04/26/23 One Impairment Pt does not have an appropriate home exercise program Short Term Goal (STG) Pt to be independent and compliant with appropriate HEP STG Duration 02/27/23 Assessment Summary Assessment noted interest in working on bathroom transfers next visit, notes pt was unable to use public restrooms last time they tried. Pt continues to improve LE/UE strength and is improving some activity tolerance. Physical Therapy Plan Frequency and Duration Frequency of Treatment 2x/Week Plan of Care Start Date 01/26/23 Plan of Care End Date 04/26/23 Therapeutic Interventions Therapeutic Interventions Balance Training,Coordination Training,Home Exercise Program ,Joint Mobilizations,Manual Therapy,Neuromuscular Re- education,Patient/Caregiver Education,Self-Care/Home Management,Soft Tissue Mobilization,Therapeutic Activities,Therapeutic Exercises Next Visit Focus/Plan Next Note Type Treatment Note Next Visit Plan LE strength, shoulder mobility , activty tolerance, balance and gait training
--- NOTE | 2023-03-13 15:17 | PT.OTN ---
Current Diagnoses Morbid (severe) obesity due to excess calories (03/13/23) Other chronic pain (03/13/23) Dorsalgia, unspecified (03/13/23) Muscle weakness (generalized) (03/13/23) Pain in right toe(s) (03/13/23) Pain in left toe(s) (03/13/23) Other abnormalities of gait and mobility (03/13/23) Other symptoms and signs involving the musculoskeletal system (03/13/23) Chronic fatigue, unspecified (03/13/23) Other reduced mobility (03/13/23) Physical Therapy Treatment Note PT-OP-A Visit Information Start: 01/26/23 17:24 Freq: Status: Active Protocol: Document 03/13/23 14:30 DCW (Rec: 03/13/23 15:17 DCW [id number]) Out-Patient Physical Therapy Visit Information Visit Information Visit Type Treatment Note Visit Start Time 14:30 Visit Stop Time 15:15 Total Visit Minutes 45 Visit Number 9 Number of BINDERY SUPERVISOR Visits 0 Evaluation Information Evaluation Date 01/26/23 PT-OP-B Current Condition Start: 01/26/23 17:24 Freq: Status: Active Protocol: Document 01/26/23 14:00 DCW (Rec: 01/27/23 08:55 DCW [id number]) Current Condition History of Current Condition Onset Date February 2021 Current Complaints Weakness, poor balance, falls risk, physical debility History of Current Condition Pt is a 72 year old male presenting with a highly complex medical history. Pt is two years (February,) s/ p initial onset of health complications, which began with a severe bacterial respiratory infection. This resulted in a more than three month hospitalization, including requiring ventilation. Pt then discharged to a rehab facility for an additional four+ months, returning home in October. Pt begain outpatient physical therapy at this facility in December,, secondary to LE weakness, decreased mobility, fatigue, increased burden of care, inability to ambulate, bilateral foot drop, and R shoulder dysfunction, all seemingly stemming from illness and extended hospitalization. Pt has experienced additional health complications since beginning rehab initially, including a massive [place], which resulted in a pacemaker placement in June. At that time, only one lead was placed due to difficulty with the anatomy of cardiac arteries. After pacemaker was implanted, pt once again resumed PT, only to stop once again in order to have surgery at [facility] in January,, to place second pacemaker lead. Pt was recovering fairly well from surgery, however just last week, pt came to the ED with hypotension, and was once again transferred back down to [facility] from 01/16/23-01/20. Pt finally arrived back home one week ago, and has slowly been increasing activity level. Pt feeling better since lead placement, increased recovery and does not fatigue as quickly. Continues to primarily mobilize in a manual w/c, occasionally uses FWW for short distances around the home. Wears bilateral AFOs due to LE weakness/footdrop. Has difficulty with raising arms overhead bilaterally. Has been compliant recent with prior HEP, hoping to increase frequency or repetitions of exercises as tolerated. PT-OP-C Subjective Start: 01/26/23 17:24 Freq: Status: Active Protocol: Document 03/13/23 14:30 DCW (Rec: 03/13/23 15:17 DCW [id number]) OP-PT Subjective Patient Comments Patient Comments Pt's notes they're worried about toilet transfers when at public bathrooms. PT-OP-E Functional Tests Start: 01/26/23 17:24 Freq: Status: Active Protocol: Document 01/26/23 14:00 DCW (Rec: 01/27/23 08:55 DCW [id number]) Functional Tests Five Times Sit to Stand Test Score 1:51.03 Comments standing from w/c, wearing B AFO PT-OP-G Mobility & Gait Start: 01/27/23 08:55 Freq: Status: Active Protocol: Document 01/26/23 14:00 DCW (Rec: 01/27/23 08:58 DCW [id number]) OP Mobility Evaluation Wheelchair Management Type of Wheelchair Manual Assessment Details Uses B feet to self-propel OP Gait Assessment Gait Gait Assistance Required: Contact Guard Assist Distance (Feet) 142 Able to Maintain Weight Bearing Status Yes During Gait Assistive Devices Assistive Device Gait Belt,Front Wheeled Walker Orthotic/Prosthetic Devices or Brace: Yes Gait Deviations General Gait Pattern Antalgic,Decreased Stride Length,Decreased Feet Clearance,Flexed Trunk,Step-to Gait Factors Limiting Gait Function Factors Limiting Gait Function Decreased Activity Tolerance, Decreased Strength,Pain,Poor Balance Comments Gait Comments Pt instructed to ambulate as much as he could tolerate. Was able to walk 142' in 3:20. PT-OP-K Range of Motion Start: 01/27/23 08:55 Freq: Status: Active Protocol: Document 01/26/23 14:00 DCW (Rec: 01/27/23 08:58 DCW [id number]) Shoulder Goniometric Range of Motion Shoulder Right Active Testing Position Sitting Flexion 73 Abduction 61 Left Active Testing Position Sitting Flexion 93 Abduction 88 PT-OP-M Strength Start: 01/26/23 17:24 Freq: Status: Active Protocol: Document 01/26/23 14:00 DCW (Rec: 01/27/23 08:55 DCW [id number]) Hip Strength Hip Manual Muscle Testing Right Flexion (L2) 3 Fair Abduction 3 Fair Adduction 3+ Fair+ Left Flexion (L2) 3 Fair Abduction 3 Fair Adduction 3+ Fair+ Knee Strength Knee Manual Muscle Testing Right Flexion (S2) 3 Fair Extension (L3) 4 Good Left Flexion (S2) 3 Fair Extension (L3) 4 Good PT-OP-Q Treatments Start: 01/26/23 17:24 Freq: Status: Active Protocol: Document 03/13/23 14:30 DCW (Rec: 03/13/23 15:17 DCW [id number]) Gym Equipment Cable Column (Body Solid) Lat Pull Down Resistance 50# Reps/Time x50 Shuttle Recovery Unilateral Squats Details AFOs removed Resistance 62# (two new bands) Shuttle Recovery Platform Stable Reps/Time 2x10 L, 1x5, 1x10 R Bilateral Squats Details AFOs removed Resistance 100# (four new bands) Shuttle Recovery Platform Stable Reps/Time x50 Therapeutic Activity Therapeutic Activity Toilet Transfers Comments Stand-pivot transfer in clinic restroom Gait Training Gait Activity Steps Description Ascend/Descend 4 steps Device Used B rail Level of Assistance CGA Distance/Duration 5 steps x1, 4 steps x4 Comments Backs down steps for descent PT-OP-T Assessment and Plan Start: 01/26/23 17:24 Freq: Status: Active Protocol: Document 03/13/23 14:30 DCW (Rec: 03/13/23 15:17 DCW [id number]) Physical Therapy Assessment Impairments Impairments Activity Tolerance,Balance, Functional Activities, Functional Mobility,Gait,Pain, Posture,ROM,Strength,Tone, Transfers Goals Three Impairment Completes 5x Sit to corporate financial analyst 1 :51.03 Custodial Goal (LTG) Pt to improve 5xStS score to < 60 seconds in order to display increased leg strength and improved transfer ability. LTG Duration 04/26/23 Two Impairment Pt ambulation limited to 142' in 3:20 using FWW. Rn Gastroenterology Goal (LTG) Pt to ambulate >800' during a 6 minute walk test to demonstrate improved activity tolerance and increased independent gait mobility LTG Duration 04/26/23 One Impairment Pt does not have an appropriate home exercise program Short Term Goal (STG) Pt to be independent and compliant with appropriate HEP STG Duration 02/27/23 Assessment Summary Assessment Biggest struggle with toilet transfers today was turning while holding on to hand rail to get from w/c to toilet. Pt appeared fairly unstable and apprehensive. Also demonstrated some difficulty with sit->stand from low toilet. Continue to work on transfers with hand-rail and LE strengthening. Physical Therapy Plan Frequency and Duration Frequency of Treatment 2x/Week Plan of Care Start Date 01/26/23 Plan of Care End Date 04/26/23 Therapeutic Interventions Therapeutic Interventions Balance Training,Coordination Training,Home Exercise Program ,Joint Mobilizations,Manual Therapy,Neuromuscular Re- education,Patient/Caregiver Education,Self-Care/Home Management,Soft Tissue Mobilization,Therapeutic Activities,Therapeutic Exercises Next Visit Focus/Plan Next Note Type Treatment Note Next Visit Plan LE strength, shoulder mobility , activty tolerance, balance and gait training
--- NOTE | 2023-03-16 14:33 | PT.OTN ---
Current Diagnoses Morbid (severe) obesity due to excess calories (03/16/23) Other chronic pain (03/16/23) Dorsalgia, unspecified (03/16/23) Muscle weakness (generalized) (03/16/23) Pain in right toe(s) (03/16/23) Pain in left toe(s) (03/16/23) Other abnormalities of gait and mobility (03/16/23) Other symptoms and signs involving the musculoskeletal system (03/16/23) Chronic fatigue, unspecified (03/16/23) Other reduced mobility (03/16/23) Physical Therapy Treatment Note PT-OP-A Visit Information Start: 01/26/23 17:24 Freq: Status: Active Protocol: Document 03/16/23 13:45 DCW (Rec: 03/16/23 14:33 DCW [id number]) Out-Patient Physical Therapy Visit Information Visit Information Visit Type Progress Note Visit Start Time 13:45 Visit Stop Time 14:30 Total Visit Minutes 45 Visit Number 10 Number of POULTRY SCALDER Visits 0 Evaluation Information Evaluation Date 01/26/23 PT-OP-B Current Condition Start: 01/26/23 17:24 Freq: Status: Active Protocol: Document 01/26/23 14:00 DCW (Rec: 01/27/23 08:55 DCW [id number]) Current Condition History of Current Condition Onset Date February 2021 Current Complaints Weakness, poor balance, falls risk, physical debility History of Current Condition Pt is a 72 year old male presenting with a highly complex medical history. Pt is two years (February,) s/ p initial onset of health complications, which began with a severe bacterial respiratory infection. This resulted in a more than three month hospitalization, including requiring ventilation. Pt then discharged to a rehab facility for an additional four+ months, returning home in October. Pt begain outpatient physical therapy at this facility in December,, secondary to LE weakness, decreased mobility, fatigue, increased burden of care, inability to ambulate, bilateral foot drop, and R shoulder dysfunction, all seemingly stemming from illness and extended hospitalization. Pt has experienced additional health complications since beginning rehab initially, including a massive [place], which resulted in a pacemaker placement in June. At that time, only one lead was placed due to difficulty with the anatomy of cardiac arteries. After pacemaker was implanted, pt once again resumed PT, only to stop once again in order to have surgery at [facility] in January,, to place second pacemaker lead. Pt was recovering fairly well from surgery, however just last week, pt came to the ED with hypotension, and was once again transferred back down to [facility] from 01/16/23-01/20. Pt finally arrived back home one week ago, and has slowly been increasing activity level. Pt feeling better since lead placement, increased recovery and does not fatigue as quickly. Continues to primarily mobilize in a manual w/c, occasionally uses FWW for short distances around the home. Wears bilateral AFOs due to LE weakness/footdrop. Has difficulty with raising arms overhead bilaterally. Has been compliant recent with prior HEP, hoping to increase frequency or repetitions of exercises as tolerated. PT-OP-C Subjective Start: 01/26/23 17:24 Freq: Status: Active Protocol: Document 03/16/23 13:45 DCW (Rec: 03/16/23 14:33 DCW [id number]) OP-PT Subjective Patient Comments Patient Comments Pt notes he is doing well today. PT-OP-E Functional Tests Start: 01/26/23 17:24 Freq: Status: Active Protocol: Document 01/26/23 14:00 DCW (Rec: 01/27/23 08:55 DCW [id number]) Functional Tests Five Times Sit to Stand Test Score 1:51.03 Comments standing from w/c, wearing B AFO PT-OP-G Mobility & Gait Start: 01/27/23 08:55 Freq: Status: Active Protocol: Document 01/26/23 14:00 DCW (Rec: 01/27/23 08:58 DCW [id number]) OP Mobility Evaluation Wheelchair Management Type of Wheelchair Manual Assessment Details Uses B feet to self-propel OP Gait Assessment Gait Gait Assistance Required: Contact Guard Assist Distance (Feet) 142 Able to Maintain Weight Bearing Status Yes During Gait Assistive Devices Assistive Device Gait Belt,Front Wheeled Walker Orthotic/Prosthetic Devices or Brace: Yes Gait Deviations General Gait Pattern Antalgic,Decreased Stride Length,Decreased Feet Clearance,Flexed Trunk,Step-to Gait Factors Limiting Gait Function Factors Limiting Gait Function Decreased Activity Tolerance, Decreased Strength,Pain,Poor Balance Comments Gait Comments Pt instructed to ambulate as much as he could tolerate. Was able to walk 142' in 3:20. PT-OP-K Range of Motion Start: 01/27/23 08:55 Freq: Status: Active Protocol: Document 01/26/23 14:00 DCW (Rec: 01/27/23 08:58 DCW [id number]) Shoulder Goniometric Range of Motion Shoulder Right Active Testing Position Sitting Flexion 73 Abduction 61 Left Active Testing Position Sitting Flexion 93 Abduction 88 PT-OP-M Strength Start: 01/26/23 17:24 Freq: Status: Active Protocol: Document 01/26/23 14:00 DCW (Rec: 01/27/23 08:55 DCW [id number]) Hip Strength Hip Manual Muscle Testing Right Flexion (L2) 3 Fair Abduction 3 Fair Adduction 3+ Fair+ Left Flexion (L2) 3 Fair Abduction 3 Fair Adduction 3+ Fair+ Knee Strength Knee Manual Muscle Testing Right Flexion (S2) 3 Fair Extension (L3) 4 Good Left Flexion (S2) 3 Fair Extension (L3) 4 Good PT-OP-Q Treatments Start: 01/26/23 17:24 Freq: Status: Active Protocol: Document 03/16/23 13:45 DCW (Rec: 03/16/23 14:33 DCW [id number]) Gym Equipment Cable Column (Body Solid) Rows Resistance 55# Reps/Time x10 Biceps Curl Details Cable column in lowest position Resistance 10# Reps/Time x15 Lat Pull Down Resistance 55# Reps/Time x30 Shuttle Recovery Unilateral Squats Details AFOs removed Resistance 62# (two new bands) Shuttle Recovery Platform Stable Reps/Time (1x10, 1x15)L, (2x10, 1x5 )R Bilateral Squats Details AFOs removed Resistance 100# (four new bands) Shuttle Recovery Platform Stable Reps/Time x50 Gait Training Gait Activity Steps Description Ascend/Descend 6 steps Device Used B rail Level of Assistance CGA Distance/Duration 3 steps x1, 2 steps x4 Comments Backs down steps for descent PT-OP-T Assessment and Plan Start: 01/26/23 17:24 Freq: Status: Active Protocol: Document 03/16/23 13:45 DCW (Rec: 03/16/23 14:33 DCW [id number]) Physical Therapy Assessment Impairments Impairments Activity Tolerance,Balance, Functional Activities, Functional Mobility,Gait,Pain, Posture,ROM,Strength,Tone, Transfers Goals Three Impairment Completes 5x Sit to swine nutritionist 1 :51.03 Fpc Goal (LTG) Pt to improve 5xStS score to < 60 seconds in order to display increased leg strength and improved transfer ability. LTG Duration 04/26/23 Two Impairment Pt ambulation limited to 142' in 3:20 using FWW. Fpc Goal (LTG) Pt to ambulate >800' during a 6 minute walk test to demonstrate improved activity tolerance and increased independent gait mobility LTG Duration 04/26/23 One Impairment Pt does not have an appropriate home exercise program Short Term Goal (STG) Pt to be independent and compliant with appropriate HEP STG Duration 02/27/23 Assessment Summary Assessment Pt did well, slight increase in tolerance to stairs today, good response to increased resistance in some strengthening. Physical Therapy Plan Frequency and Duration Frequency of Treatment 2x/Week Plan of Care Start Date 01/26/23 Plan of Care End Date 04/26/23 Therapeutic Interventions Therapeutic Interventions Balance Training,Coordination Training,Home Exercise Program ,Joint Mobilizations,Manual Therapy,Neuromuscular Re- education,Patient/Caregiver Education,Self-Care/Home Management,Soft Tissue Mobilization,Therapeutic Activities,Therapeutic Exercises Next Visit Focus/Plan Next Note Type Treatment Note Next Visit Plan LE strength, shoulder mobility , activty tolerance, balance and gait training
--- NOTE | 2023-03-16 14:43 | PT.OPPN ---
Current Diagnoses Morbid (severe) obesity due to excess calories (03/16/23) Other chronic pain (03/16/23) Dorsalgia, unspecified (03/16/23) Muscle weakness (generalized) (03/16/23) Pain in right toe(s) (03/16/23) Pain in left toe(s) (03/16/23) Other abnormalities of gait and mobility (03/16/23) Other symptoms and signs involving the musculoskeletal system (03/16/23) Chronic fatigue, unspecified (03/16/23) Other reduced mobility (03/16/23) Physical Therapy Progress Note PT-OP-A Visit Information Start: 01/26/23 17:24 Freq: Status: Active Protocol: Document 03/16/23 13:45 DCW (Rec: 03/16/23 14:33 DCW [id number]) Out-Patient Physical Therapy Visit Information Visit Information Visit Type Progress Note Visit Start Time 13:45 Visit Stop Time 14:30 Total Visit Minutes 45 Visit Number 10 Number of OUTSOLE MOLDER Visits 0 Evaluation Information Evaluation Date 01/26/23 PT-OP-B Current Condition Start: 01/26/23 17:24 Freq: Status: Active Protocol: Document 01/26/23 14:00 DCW (Rec: 01/27/23 08:55 DCW [id number]) Current Condition History of Current Condition Onset Date February 2021 Current Complaints Weakness, poor balance, falls risk, physical debility History of Current Condition Pt is a 72 year old male presenting with a highly complex medical history. Pt is two years (February,) s/ p initial onset of health complications, which began with a severe bacterial respiratory infection. This resulted in a more than three month hospitalization, including requiring ventilation. Pt then discharged to a rehab facility for an additional four+ months, returning home in October. Pt begain outpatient physical therapy at this facility in December,, secondary to LE weakness, decreased mobility, fatigue, increased burden of care, inability to ambulate, bilateral foot drop, and R shoulder dysfunction, all seemingly stemming from illness and extended hospitalization. Pt has experienced additional health complications since beginning rehab initially, including a massive [place], which resulted in a pacemaker placement in June. At that time, only one lead was placed due to difficulty with the anatomy of cardiac arteries. After pacemaker was implanted, pt once again resumed PT, only to stop once again in order to have surgery at [facility] in January,, to place second pacemaker lead. Pt was recovering fairly well from surgery, however just last week, pt came to the ED with hypotension, and was once again transferred back down to [facility] from 01/16/23-01/20. Pt finally arrived back home one week ago, and has slowly been increasing activity level. Pt feeling better since lead placement, increased recovery and does not fatigue as quickly. Continues to primarily mobilize in a manual w/c, occasionally uses FWW for short distances around the home. Wears bilateral AFOs due to LE weakness/footdrop. Has difficulty with raising arms overhead bilaterally. Has been compliant recent with prior HEP, hoping to increase frequency or repetitions of exercises as tolerated. PT-OP-C Subjective Start: 01/26/23 17:24 Freq: Status: Active Protocol: Document 03/16/23 13:45 DCW (Rec: 03/16/23 14:33 DCW [id number]) OP-PT Subjective Patient Comments Patient Comments Pt notes he is doing well today. PT-OP-E Functional Tests Start: 01/26/23 17:24 Freq: Status: Active Protocol: Document 01/26/23 14:00 DCW (Rec: 01/27/23 08:55 DCW [id number]) Functional Tests Five Times Sit to Stand Test Score 1:51.03 Comments standing from w/c, wearing B AFO PT-OP-G Mobility & Gait Start: 01/27/23 08:55 Freq: Status: Active Protocol: Document 01/26/23 14:00 DCW (Rec: 01/27/23 08:58 DCW [id number]) OP Mobility Evaluation Wheelchair Management Type of Wheelchair Manual Assessment Details Uses B feet to self-propel OP Gait Assessment Gait Gait Assistance Required: Contact Guard Assist Distance (Feet) 142 Able to Maintain Weight Bearing Status Yes During Gait Assistive Devices Assistive Device Gait Belt,Front Wheeled Walker Orthotic/Prosthetic Devices or Brace: Yes Gait Deviations General Gait Pattern Antalgic,Decreased Stride Length,Decreased Feet Clearance,Flexed Trunk,Step-to Gait Factors Limiting Gait Function Factors Limiting Gait Function Decreased Activity Tolerance, Decreased Strength,Pain,Poor Balance Comments Gait Comments Pt instructed to ambulate as much as he could tolerate. Was able to walk 142' in 3:20. PT-OP-K Range of Motion Start: 01/27/23 08:55 Freq: Status: Active Protocol: Document 01/26/23 14:00 DCW (Rec: 01/27/23 08:58 DCW [id number]) Shoulder Goniometric Range of Motion Shoulder Measured in Degrees Right Active Testing Position Sitting Flexion 73 Abduction 61 Left Active Testing Position Sitting Flexion 93 Abduction 88 PT-OP-M Strength Start: 01/26/23 17:24 Freq: Status: Active Protocol: Document 01/26/23 14:00 DCW (Rec: 01/27/23 08:55 DCW [id number]) Hip Strength Hip Manual Muscle Testing Right Flexion (L2) 3 Fair Abduction 3 Fair Adduction 3+ Fair+ Left Flexion (L2) 3 Fair Abduction 3 Fair Adduction 3+ Fair+ Knee Strength Knee Manual Muscle Testing Right Flexion (S2) 3 Fair Extension (L3) 4 Good Left Flexion (S2) 3 Fair Extension (L3) 4 Good PT-OP-T Assessment and Plan Start: 01/26/23 17:24 Freq: Status: Active Protocol: Document 03/16/23 13:45 DCW (Rec: 03/16/23 14:33 DCW [id number]) Physical Therapy Assessment Impairments Impairments Activity Tolerance,Balance, Functional Activities, Functional Mobility,Gait,Pain, Posture,ROM,Strength,Tone, Transfers Goals Three Impairment Completes 5x Sit to home health clinician 1 :51.03 Plaster Caster Goal (LTG) Pt to improve 5xStS score to < 60 seconds in order to display increased leg strength and improved transfer ability. LTG Duration 04/26/23 Two Impairment Pt ambulation limited to 142' in 3:20 using FWW. Fdc Goal (LTG) Pt to ambulate >800' during a 6 minute walk test to demonstrate improved activity tolerance and increased independent gait mobility LTG Duration 04/26/23 One Impairment Pt does not have an appropriate home exercise program Short Term Goal (STG) Pt to be independent and compliant with appropriate HEP STG Duration 02/27/23 Assessment Summary Assessment Pt did well, slight increase in tolerance to stairs today, good response to increased resistance in some strengthening. Physical Therapy Plan Frequency and Duration Frequency of Treatment 2x/Week Plan of Care Start Date 01/26/23 Plan of Care End Date 04/26/23 Therapeutic Interventions Therapeutic Interventions Balance Training,Coordination Training,Home Exercise Program ,Joint Mobilizations,Manual Therapy,Neuromuscular Re- education,Patient/Caregiver Education,Self-Care/Home Management,Soft Tissue Mobilization,Therapeutic Activities,Therapeutic Exercises Next Visit Focus/Plan Next Note Type Treatment Note Next Visit Plan LE strength, shoulder mobility , activty tolerance, balance and gait training
--- NOTE | 2023-03-20 14:34 | PT.OTN ---
Current Diagnoses Morbid (severe) obesity due to excess calories (03/20/23) Other chronic pain (03/20/23) Dorsalgia, unspecified (03/20/23) Muscle weakness (generalized) (03/20/23) Pain in right toe(s) (03/20/23) Pain in left toe(s) (03/20/23) Other abnormalities of gait and mobility (03/20/23) Other symptoms and signs involving the musculoskeletal system (03/20/23) Chronic fatigue, unspecified (03/20/23) Other reduced mobility (03/20/23) Physical Therapy Treatment Note PT-OP-A Visit Information Start: 01/26/23 17:24 Freq: Status: Active Protocol: Document 03/20/23 13:45 DCW (Rec: 03/20/23 14:34 DCW [id number]) Out-Patient Physical Therapy Visit Information Visit Information Visit Type Treatment Note Visit Start Time 14:30 Visit Stop Time 15:15 Total Visit Minutes 45 Visit Number 11 Number of STEM PROCESSING MACHINE OPERATOR Visits 0 Evaluation Information Evaluation Date 01/26/23 PT-OP-B Current Condition Start: 01/26/23 17:24 Freq: Status: Active Protocol: Document 01/26/23 14:00 DCW (Rec: 01/27/23 08:55 DCW [id number]) Current Condition History of Current Condition Onset Date February 2021 Current Complaints Weakness, poor balance, falls risk, physical debility History of Current Condition Pt is a 72 year old male presenting with a highly complex medical history. Pt is two years (February,) s/ p initial onset of health complications, which began with a severe bacterial respiratory infection. This resulted in a more than three month hospitalization, including requiring ventilation. Pt then discharged to a rehab facility for an additional four+ months, returning home in October. Pt begain outpatient physical therapy at this facility in December,, secondary to LE weakness, decreased mobility, fatigue, increased burden of care, inability to ambulate, bilateral foot drop, and R shoulder dysfunction, all seemingly stemming from illness and extended hospitalization. Pt has experienced additional health complications since beginning rehab initially, including a massive [place], which resulted in a pacemaker placement in June. At that time, only one lead was placed due to difficulty with the anatomy of cardiac arteries. After pacemaker was implanted, pt once again resumed PT, only to stop once again in order to have surgery at [facility] in January,, to place second pacemaker lead. Pt was recovering fairly well from surgery, however just last week, pt came to the ED with hypotension, and was once again transferred back down to [facility] from 01/16/23-01/20. Pt finally arrived back home one week ago, and has slowly been increasing activity level. Pt feeling better since lead placement, increased recovery and does not fatigue as quickly. Continues to primarily mobilize in a manual w/c, occasionally uses FWW for short distances around the home. Wears bilateral AFOs due to LE weakness/footdrop. Has difficulty with raising arms overhead bilaterally. Has been compliant recent with prior HEP, hoping to increase frequency or repetitions of exercises as tolerated. PT-OP-C Subjective Start: 01/26/23 17:24 Freq: Status: Active Protocol: Document 03/20/23 13:45 DCW (Rec: 03/20/23 14:34 DCW [id number]) OP-PT Subjective Patient Comments Patient Comments Pt reports he is now walking out to his car using his walker instead of going out in the w/c. PT-OP-E Functional Tests Start: 01/26/23 17:24 Freq: Status: Active Protocol: Document 01/26/23 14:00 DCW (Rec: 01/27/23 08:55 DCW [id number]) Functional Tests Five Times Sit to Stand Test Score 1:51.03 Comments standing from w/c, wearing B AFO PT-OP-G Mobility & Gait Start: 01/27/23 08:55 Freq: Status: Active Protocol: Document 01/26/23 14:00 DCW (Rec: 01/27/23 08:58 DCW [id number]) OP Mobility Evaluation Wheelchair Management Type of Wheelchair Manual Assessment Details Uses B feet to self-propel OP Gait Assessment Gait Gait Assistance Required: Contact Guard Assist Distance (Feet) 142 Able to Maintain Weight Bearing Status Yes During Gait Assistive Devices Assistive Device Gait Belt,Front Wheeled Walker Orthotic/Prosthetic Devices or Brace: Yes Gait Deviations General Gait Pattern Antalgic,Decreased Stride Length,Decreased Feet Clearance,Flexed Trunk,Step-to Gait Factors Limiting Gait Function Factors Limiting Gait Function Decreased Activity Tolerance, Decreased Strength,Pain,Poor Balance Comments Gait Comments Pt instructed to ambulate as much as he could tolerate. Was able to walk 142' in 3:20. PT-OP-K Range of Motion Start: 01/27/23 08:55 Freq: Status: Active Protocol: Document 01/26/23 14:00 DCW (Rec: 01/27/23 08:58 DCW [id number]) Shoulder Goniometric Range of Motion Shoulder Right Active Testing Position Sitting Flexion 73 Abduction 61 Left Active Testing Position Sitting Flexion 93 Abduction 88 PT-OP-M Strength Start: 01/26/23 17:24 Freq: Status: Active Protocol: Document 01/26/23 14:00 DCW (Rec: 01/27/23 08:55 DCW [id number]) Hip Strength Hip Manual Muscle Testing Right Flexion (L2) 3 Fair Abduction 3 Fair Adduction 3+ Fair+ Left Flexion (L2) 3 Fair Abduction 3 Fair Adduction 3+ Fair+ Knee Strength Knee Manual Muscle Testing Right Flexion (S2) 3 Fair Extension (L3) 4 Good Left Flexion (S2) 3 Fair Extension (L3) 4 Good PT-OP-Q Treatments Start: 01/26/23 17:24 Freq: Status: Active Protocol: Document 03/20/23 13:45 DCW (Rec: 03/20/23 14:34 DCW [id number]) Gym Equipment Cable Column (Body Solid) Rows Resistance 55# Reps/Time x10 Biceps Curl Details Cable column in lowest position Resistance 10# Reps/Time x15 Lat Pull Down Resistance 55# Reps/Time x45 Shuttle Recovery Unilateral Squats Details AFOs removed Resistance 62# (two new bands) Shuttle Recovery Platform Stable Reps/Time (2x10)L, (4x5)R Bilateral Squats Details AFOs removed Resistance 112# (four new bands) Shuttle Recovery Platform Stable Reps/Time x35 Therapeutic Activity Therapeutic Activity Toilet Transfers Comments Stand-pivot transfer @ rail, 35 rail, mesh chair /s arm rests to replicate toilet transfers Gait Training Gait Activity Steps Description Ascend/Descend 6 steps Device Used B rail Level of Assistance CGA Distance/Duration 3 steps x1, 2 steps x7 Comments Backs down steps for descent PT-OP-T Assessment and Plan Start: 01/26/23 17:24 Freq: Status: Active Protocol: Document 03/20/23 13:45 DCW (Rec: 03/20/23 14:34 DCW [id number]) Physical Therapy Assessment Impairments Impairments Activity Tolerance,Balance, Functional Activities, Functional Mobility,Gait,Pain, Posture,ROM,Strength,Tone, Transfers Goals Three Impairment Completes 5x Sit to preparer making department 1 :51.03 Shelter Goal (LTG) Pt to improve 5xStS score to < 60 seconds in order to display increased leg strength and improved transfer ability. LTG Duration 04/26/23 Two Impairment Pt ambulation limited to 142' in 3:20 using FWW. Career Guidance Counselor Goal (LTG) Pt to ambulate >800' during a 6 minute walk test to demonstrate improved activity tolerance and increased independent gait mobility LTG Duration 04/26/23 One Impairment Pt does not have an appropriate home exercise program Short Term Goal (STG) Pt to be independent and compliant with appropriate HEP STG Duration 02/27/23 Assessment Summary Assessment Doing better today with toilet transfer technique, increased resistance with B leg press, tolerated well. Physical Therapy Plan Frequency and Duration Frequency of Treatment 2x/Week Plan of Care Start Date 01/26/23 Plan of Care End Date 04/26/23 Therapeutic Interventions Therapeutic Interventions Balance Training,Coordination Training,Home Exercise Program ,Joint Mobilizations,Manual Therapy,Neuromuscular Re- education,Patient/Caregiver Education,Self-Care/Home Management,Soft Tissue Mobilization,Therapeutic Activities,Therapeutic Exercises Next Visit Focus/Plan Next Note Type Treatment Note Next Visit Plan LE strength, shoulder mobility , activty tolerance, balance and gait training
--- NOTE | 2023-03-23 14:27 | PT.OTN ---
Current Diagnoses Morbid (severe) obesity due to excess calories (03/23/23) Other chronic pain (03/23/23) Dorsalgia, unspecified (03/23/23) Muscle weakness (generalized) (03/23/23) Pain in right toe(s) (03/23/23) Pain in left toe(s) (03/23/23) Other abnormalities of gait and mobility (03/23/23) Other symptoms and signs involving the musculoskeletal system (03/23/23) Chronic fatigue, unspecified (03/23/23) Other reduced mobility (03/23/23) Physical Therapy Treatment Note PT-OP-A Visit Information Start: 01/26/23 17:24 Freq: Status: Active Protocol: Document 03/23/23 13:45 DCW (Rec: 03/23/23 14:27 DCW [id number]) Out-Patient Physical Therapy Visit Information Visit Information Visit Type Treatment Note Visit Start Time 13:45 Visit Stop Time 14:25 Total Visit Minutes 40 Visit Number 12 Number of MEDICAL DIR Visits 0 Evaluation Information Evaluation Date 01/26/23 PT-OP-B Current Condition Start: 01/26/23 17:24 Freq: Status: Active Protocol: Document 01/26/23 14:00 DCW (Rec: 01/27/23 08:55 DCW [id number]) Current Condition History of Current Condition Onset Date February 2021 Current Complaints Weakness, poor balance, falls risk, physical debility History of Current Condition Pt is a 72 year old male presenting with a highly complex medical history. Pt is two years (February,) s/ p initial onset of health complications, which began with a severe bacterial respiratory infection. This resulted in a more than three month hospitalization, including requiring ventilation. Pt then discharged to a rehab facility for an additional four+ months, returning home in October. Pt begain outpatient physical therapy at this facility in December,, secondary to LE weakness, decreased mobility, fatigue, increased burden of care, inability to ambulate, bilateral foot drop, and R shoulder dysfunction, all seemingly stemming from illness and extended hospitalization. Pt has experienced additional health complications since beginning rehab initially, including a massive [place], which resulted in a pacemaker placement in June. At that time, only one lead was placed due to difficulty with the anatomy of cardiac arteries. After pacemaker was implanted, pt once again resumed PT, only to stop once again in order to have surgery at [facility] in January,, to place second pacemaker lead. Pt was recovering fairly well from surgery, however just last week, pt came to the ED with hypotension, and was once again transferred back down to [facility] from 01/16/23-01/20. Pt finally arrived back home one week ago, and has slowly been increasing activity level. Pt feeling better since lead placement, increased recovery and does not fatigue as quickly. Continues to primarily mobilize in a manual w/c, occasionally uses FWW for short distances around the home. Wears bilateral AFOs due to LE weakness/footdrop. Has difficulty with raising arms overhead bilaterally. Has been compliant recent with prior HEP, hoping to increase frequency or repetitions of exercises as tolerated. PT-OP-C Subjective Start: 01/26/23 17:24 Freq: Status: Active Protocol: Document 03/23/23 13:45 DCW (Rec: 03/23/23 14:27 DCW [id number]) OP-PT Subjective Patient Comments Patient Comments Pt admits he's still pretty tired following his appointment on Monday. Requests finishing 5 minutes early in order to get over to cardio appointment in time. PT-OP-E Functional Tests Start: 01/26/23 17:24 Freq: Status: Active Protocol: Document 01/26/23 14:00 DCW (Rec: 01/27/23 08:55 DCW [id number]) Functional Tests Five Times Sit to Stand Test Score 1:51.03 Comments standing from w/c, wearing B AFO PT-OP-G Mobility & Gait Start: 01/27/23 08:55 Freq: Status: Active Protocol: Document 01/26/23 14:00 DCW (Rec: 01/27/23 08:58 DCW [id number]) OP Mobility Evaluation Wheelchair Management Type of Wheelchair Manual Assessment Details Uses B feet to self-propel OP Gait Assessment Gait Gait Assistance Required: Contact Guard Assist Distance (Feet) 142 Able to Maintain Weight Bearing Status Yes During Gait Assistive Devices Assistive Device Gait Belt,Front Wheeled Walker Orthotic/Prosthetic Devices or Brace: Yes Gait Deviations General Gait Pattern Antalgic,Decreased Stride Length,Decreased Feet Clearance,Flexed Trunk,Step-to Gait Factors Limiting Gait Function Factors Limiting Gait Function Decreased Activity Tolerance, Decreased Strength,Pain,Poor Balance Comments Gait Comments Pt instructed to ambulate as much as he could tolerate. Was able to walk 142' in 3:20. PT-OP-K Range of Motion Start: 01/27/23 08:55 Freq: Status: Active Protocol: Document 01/26/23 14:00 DCW (Rec: 01/27/23 08:58 DCW [id number]) Shoulder Goniometric Range of Motion Shoulder Right Active Testing Position Sitting Flexion 73 Abduction 61 Left Active Testing Position Sitting Flexion 93 Abduction 88 PT-OP-M Strength Start: 01/26/23 17:24 Freq: Status: Active Protocol: Document 01/26/23 14:00 DCW (Rec: 01/27/23 08:55 DCW [id number]) Hip Strength Hip Manual Muscle Testing Right Flexion (L2) 3 Fair Abduction 3 Fair Adduction 3+ Fair+ Left Flexion (L2) 3 Fair Abduction 3 Fair Adduction 3+ Fair+ Knee Strength Knee Manual Muscle Testing Right Flexion (S2) 3 Fair Extension (L3) 4 Good Left Flexion (S2) 3 Fair Extension (L3) 4 Good PT-OP-Q Treatments Start: 01/26/23 17:24 Freq: Status: Active Protocol: Document 03/23/23 13:45 DCW (Rec: 03/23/23 14:27 DCW [id number]) Gym Equipment Cable Column (Body Solid) Horizontal Adduction Details Cable column at chest height Resistance 15# Reps/Time x50 each Reverse Fly Details Cable column at chest height Resistance 25# Reps/Time x51 Triceps Details Triceps press Resistance 20# Reps/Time x50 Rows Resistance 55# Reps/Time x20 Biceps Curl Details Cable column in lowest position Resistance 10# Reps/Time x25 Lat Pull Down Resistance 55# Reps/Time x40 Therapeutic Exercises Other Exercises Side-stepping Other Exercise Name Side-stepping at rail Gait Training Gait Activity Steps Description Ascend/Descend 6 steps Device Used B rail Level of Assistance CGA Distance/Duration 3 steps x1, 2 steps x4 Comments Backs down steps for descent PT-OP-T Assessment and Plan Start: 01/26/23 17:24 Freq: Status: Active Protocol: Document 03/23/23 13:45 DCW (Rec: 03/23/23 14:27 DCW [id number]) Physical Therapy Assessment Impairments Impairments Activity Tolerance,Balance, Functional Activities, Functional Mobility,Gait,Pain, Posture,ROM,Strength,Tone, Transfers Goals Three Impairment Completes 5x Sit to interactive producer 1 :51.03 Shelter Goal (LTG) Pt to improve 5xStS score to < 60 seconds in order to display increased leg strength and improved transfer ability. LTG Duration 04/26/23 Two Impairment Pt ambulation limited to 142' in 3:20 using FWW. Shelter Goal (LTG) Pt to ambulate >800' during a 6 minute walk test to demonstrate improved activity tolerance and increased independent gait mobility LTG Duration 04/26/23 One Impairment Pt does not have an appropriate home exercise program Short Term Goal (STG) Pt to be independent and compliant with appropriate HEP STG Duration 02/27/23 Assessment Summary Assessment Focused on continued UE strengthening, addition of side-stepping at rail. pt fairly fatigued by end of session. Physical Therapy Plan Frequency and Duration Frequency of Treatment 2x/Week Plan of Care Start Date 01/26/23 Plan of Care End Date 04/26/23 Therapeutic Interventions Therapeutic Interventions Balance Training,Coordination Training,Home Exercise Program ,Joint Mobilizations,Manual Therapy,Neuromuscular Re- education,Patient/Caregiver Education,Self-Care/Home Management,Soft Tissue Mobilization,Therapeutic Activities,Therapeutic Exercises Next Visit Focus/Plan Next Note Type Treatment Note Next Visit Plan LE strength, shoulder mobility , activty tolerance, balance and gait training
--- NOTE | 2023-03-28 14:29 | PT.OTN ---
Current Diagnoses Morbid (severe) obesity due to excess calories (03/28/23) Other chronic pain (03/28/23) Dorsalgia, unspecified (03/28/23) Muscle weakness (generalized) (03/28/23) Pain in right toe(s) (03/28/23) Pain in left toe(s) (03/28/23) Other abnormalities of gait and mobility (03/28/23) Other symptoms and signs involving the musculoskeletal system (03/28/23) Chronic fatigue, unspecified (03/28/23) Other reduced mobility (03/28/23) Physical Therapy Treatment Note PT-OP-A Visit Information Start: 01/26/23 17:24 Freq: Status: Active Protocol: Document 03/28/23 13:45 DCW (Rec: 03/28/23 14:29 DCW [id number]) Out-Patient Physical Therapy Visit Information Visit Information Visit Type Treatment Note Visit Start Time 13:45 Visit Stop Time 14:30 Total Visit Minutes 45 Visit Number 13 Number of INFECTION CONTROL SPECIALIST Visits 0 Evaluation Information Evaluation Date 01/26/23 PT-OP-B Current Condition Start: 01/26/23 17:24 Freq: Status: Active Protocol: Document 01/26/23 14:00 DCW (Rec: 01/27/23 08:55 DCW [id number]) Current Condition History of Current Condition Onset Date February 2021 Current Complaints Weakness, poor balance, falls risk, physical debility History of Current Condition Pt is a 72 year old male presenting with a highly complex medical history. Pt is two years (February,) s/ p initial onset of health complications, which began with a severe bacterial respiratory infection. This resulted in a more than three month hospitalization, including requiring ventilation. Pt then discharged to a rehab facility for an additional four+ months, returning home in October. Pt begain outpatient physical therapy at this facility in December,, secondary to LE weakness, decreased mobility, fatigue, increased burden of care, inability to ambulate, bilateral foot drop, and R shoulder dysfunction, all seemingly stemming from illness and extended hospitalization. Pt has experienced additional health complications since beginning rehab initially, including a massive [place], which resulted in a pacemaker placement in June. At that time, only one lead was placed due to difficulty with the anatomy of cardiac arteries. After pacemaker was implanted, pt once again resumed PT, only to stop once again in order to have surgery at [facility] in January,, to place second pacemaker lead. Pt was recovering fairly well from surgery, however just last week, pt came to the ED with hypotension, and was once again transferred back down to [facility] from 01/16/23-01/20. Pt finally arrived back home one week ago, and has slowly been increasing activity level. Pt feeling better since lead placement, increased recovery and does not fatigue as quickly. Continues to primarily mobilize in a manual w/c, occasionally uses FWW for short distances around the home. Wears bilateral AFOs due to LE weakness/footdrop. Has difficulty with raising arms overhead bilaterally. Has been compliant recent with prior HEP, hoping to increase frequency or repetitions of exercises as tolerated. PT-OP-C Subjective Start: 01/26/23 17:24 Freq: Status: Active Protocol: Document 03/28/23 13:45 DCW (Rec: 03/28/23 14:29 DCW [id number]) OP-PT Subjective Patient Comments Patient Comments Doing well, but having some digestive issues after eating something that didn't agree with me. PT-OP-E Functional Tests Start: 01/26/23 17:24 Freq: Status: Active Protocol: Document 01/26/23 14:00 DCW (Rec: 01/27/23 08:55 DCW [id number]) Functional Tests Five Times Sit to Stand Test Score 1:51.03 Comments standing from w/c, wearing B AFO PT-OP-G Mobility & Gait Start: 01/27/23 08:55 Freq: Status: Active Protocol: Document 01/26/23 14:00 DCW (Rec: 01/27/23 08:58 DCW [id number]) OP Mobility Evaluation Wheelchair Management Type of Wheelchair Manual Assessment Details Uses B feet to self-propel OP Gait Assessment Gait Gait Assistance Required: Contact Guard Assist Distance (Feet) 142 Able to Maintain Weight Bearing Status Yes During Gait Assistive Devices Assistive Device Gait Belt,Front Wheeled Walker Orthotic/Prosthetic Devices or Brace: Yes Gait Deviations General Gait Pattern Antalgic,Decreased Stride Length,Decreased Feet Clearance,Flexed Trunk,Step-to Gait Factors Limiting Gait Function Factors Limiting Gait Function Decreased Activity Tolerance, Decreased Strength,Pain,Poor Balance Comments Gait Comments Pt instructed to ambulate as much as he could tolerate. Was able to walk 142' in 3:20. PT-OP-K Range of Motion Start: 01/27/23 08:55 Freq: Status: Active Protocol: Document 01/26/23 14:00 DCW (Rec: 01/27/23 08:58 DCW [id number]) Shoulder Goniometric Range of Motion Shoulder Right Active Testing Position Sitting Flexion 73 Abduction 61 Left Active Testing Position Sitting Flexion 93 Abduction 88 PT-OP-M Strength Start: 01/26/23 17:24 Freq: Status: Active Protocol: Document 01/26/23 14:00 DCW (Rec: 01/27/23 08:55 DCW [id number]) Hip Strength Hip Manual Muscle Testing Right Flexion (L2) 3 Fair Abduction 3 Fair Adduction 3+ Fair+ Left Flexion (L2) 3 Fair Abduction 3 Fair Adduction 3+ Fair+ Knee Strength Knee Manual Muscle Testing Right Flexion (S2) 3 Fair Extension (L3) 4 Good Left Flexion (S2) 3 Fair Extension (L3) 4 Good PT-OP-Q Treatments Start: 01/26/23 17:24 Freq: Status: Active Protocol: Document 03/28/23 13:45 DCW (Rec: 03/28/23 14:29 DCW [id number]) Gym Equipment Cable Column (Body Solid) Horizontal Adduction Details Cable column at chest height Resistance 20# Reps/Time x35 each Reverse Fly Details Cable column at chest height Resistance 25# Reps/Time x50 Triceps Details Triceps press Resistance 20# Reps/Time x30 Rows Resistance 55# Reps/Time x10 Biceps Curl Details Cable column in lowest position Resistance 12.5# Reps/Time x10 Lat Pull Down Resistance 55# Reps/Time x40 Therapeutic Activity Therapeutic Activity Toilet Transfers Reps/Minutes x2 Comments Stand-pivot transfer @ rail, 35 rail, mesh chair /s arm rests to replicate toilet transfers Gait Training Gait Activity Steps Description Ascend/Descend 6 steps Device Used B rail Level of Assistance CGA Distance/Duration 3 steps x1, 2 steps x8 Comments Backs down steps for descent PT-OP-T Assessment and Plan Start: 01/26/23 17:24 Freq: Status: Active Protocol: Document 03/28/23 13:45 DCW (Rec: 03/28/23 14:29 DCW [id number]) Physical Therapy Assessment Impairments Impairments Activity Tolerance,Balance, Functional Activities, Functional Mobility,Gait,Pain, Posture,ROM,Strength,Tone, Transfers Goals Three Impairment Completes 5x Sit to stamping die maker 1 :51.03 [employer] Driver Goal (LTG) Pt to improve 5xStS score to < 60 seconds in order to display increased leg strength and improved transfer ability. LTG Duration 04/26/23 Two Impairment Pt ambulation limited to 142' in 3:20 using FWW. [employer] Driver Goal (LTG) Pt to ambulate >800' during a 6 minute walk test to demonstrate improved activity tolerance and increased independent gait mobility LTG Duration 04/26/23 One Impairment Pt does not have an appropriate home exercise program Short Term Goal (STG) Pt to be independent and compliant with appropriate HEP STG Duration 02/27/23 Assessment Summary Assessment Trial again to mimic toilet transfers, did well with single rail getting into position and performing stand- pivot transfers. Increased reps of ascend/descend 6 stairs. Physical Therapy Plan Frequency and Duration Frequency of Treatment 2x/Week Plan of Care Start Date 01/26/23 Plan of Care End Date 04/26/23 Therapeutic Interventions Therapeutic Interventions Balance Training,Coordination Training,Home Exercise Program ,Joint Mobilizations,Manual Therapy,Neuromuscular Re- education,Patient/Caregiver Education,Self-Care/Home Management,Soft Tissue Mobilization,Therapeutic Activities,Therapeutic Exercises Next Visit Focus/Plan Next Note Type Treatment Note Next Visit Plan LE strength, shoulder mobility , activty tolerance, balance and gait training
--- NOTE | 2023-03-31 14:27 | PT.OTN ---
Current Diagnoses Morbid (severe) obesity due to excess calories (03/31/23) Other chronic pain (03/31/23) Dorsalgia, unspecified (03/31/23) Muscle weakness (generalized) (03/31/23) Pain in right toe(s) (03/31/23) Pain in left toe(s) (03/31/23) Other abnormalities of gait and mobility (03/31/23) Other symptoms and signs involving the musculoskeletal system (03/31/23) Chronic fatigue, unspecified (03/31/23) Other reduced mobility (03/31/23) Physical Therapy Treatment Note PT-OP-A Visit Information Start: 01/26/23 17:24 Freq: Status: Active Protocol: Document 03/31/23 13:45 DCW (Rec: 03/31/23 14:27 DCW [id number]) Out-Patient Physical Therapy Visit Information Visit Information Visit Type Treatment Note Visit Start Time 13:45 Visit Stop Time 14:30 Total Visit Minutes 45 Visit Number 14 Number of SENIOR ACCOUNT MANAGER Visits 0 Evaluation Information Evaluation Date 01/26/23 PT-OP-B Current Condition Start: 01/26/23 17:24 Freq: Status: Active Protocol: Document 01/26/23 14:00 DCW (Rec: 01/27/23 08:55 DCW [id number]) Current Condition History of Current Condition Onset Date February 2021 Current Complaints Weakness, poor balance, falls risk, physical debility History of Current Condition Pt is a 72 year old male presenting with a highly complex medical history. Pt is two years (February,) s/ p initial onset of health complications, which began with a severe bacterial respiratory infection. This resulted in a more than three month hospitalization, including requiring ventilation. Pt then discharged to a rehab facility for an additional four+ months, returning home in October. Pt begain outpatient physical therapy at this facility in December,, secondary to LE weakness, decreased mobility, fatigue, increased burden of care, inability to ambulate, bilateral foot drop, and R shoulder dysfunction, all seemingly stemming from illness and extended hospitalization. Pt has experienced additional health complications since beginning rehab initially, including a massive [place], which resulted in a pacemaker placement in June. At that time, only one lead was placed due to difficulty with the anatomy of cardiac arteries. After pacemaker was implanted, pt once again resumed PT, only to stop once again in order to have surgery at [facility] in January,, to place second pacemaker lead. Pt was recovering fairly well from surgery, however just last week, pt came to the ED with hypotension, and was once again transferred back down to [facility] from 01/16/23-01/20. Pt finally arrived back home one week ago, and has slowly been increasing activity level. Pt feeling better since lead placement, increased recovery and does not fatigue as quickly. Continues to primarily mobilize in a manual w/c, occasionally uses FWW for short distances around the home. Wears bilateral AFOs due to LE weakness/footdrop. Has difficulty with raising arms overhead bilaterally. Has been compliant recent with prior HEP, hoping to increase frequency or repetitions of exercises as tolerated. PT-OP-C Subjective Start: 01/26/23 17:24 Freq: Status: Active Protocol: Document 03/31/23 13:45 DCW (Rec: 03/31/23 14:27 DCW [id number]) OP-PT Subjective Patient Comments Patient Comments Didn't sleep well last night due to LE neuropathy. PT-OP-E Functional Tests Start: 01/26/23 17:24 Freq: Status: Active Protocol: Document 01/26/23 14:00 DCW (Rec: 01/27/23 08:55 DCW [id number]) Functional Tests Five Times Sit to Stand Test Score 1:51.03 Comments standing from w/c, wearing B AFO PT-OP-G Mobility & Gait Start: 01/27/23 08:55 Freq: Status: Active Protocol: Document 01/26/23 14:00 DCW (Rec: 01/27/23 08:58 DCW [id number]) OP Mobility Evaluation Wheelchair Management Type of Wheelchair Manual Assessment Details Uses B feet to self-propel OP Gait Assessment Gait Gait Assistance Required: Contact Guard Assist Distance (Feet) 142 Able to Maintain Weight Bearing Status Yes During Gait Assistive Devices Assistive Device Gait Belt,Front Wheeled Walker Orthotic/Prosthetic Devices or Brace: Yes Gait Deviations General Gait Pattern Antalgic,Decreased Stride Length,Decreased Feet Clearance,Flexed Trunk,Step-to Gait Factors Limiting Gait Function Factors Limiting Gait Function Decreased Activity Tolerance, Decreased Strength,Pain,Poor Balance Comments Gait Comments Pt instructed to ambulate as much as he could tolerate. Was able to walk 142' in 3:20. PT-OP-K Range of Motion Start: 01/27/23 08:55 Freq: Status: Active Protocol: Document 01/26/23 14:00 DCW (Rec: 01/27/23 08:58 DCW [id number]) Shoulder Goniometric Range of Motion Shoulder Right Active Testing Position Sitting Flexion 73 Abduction 61 Left Active Testing Position Sitting Flexion 93 Abduction 88 PT-OP-M Strength Start: 01/26/23 17:24 Freq: Status: Active Protocol: Document 01/26/23 14:00 DCW (Rec: 01/27/23 08:55 DCW [id number]) Hip Strength Hip Manual Muscle Testing Right Flexion (L2) 3 Fair Abduction 3 Fair Adduction 3+ Fair+ Left Flexion (L2) 3 Fair Abduction 3 Fair Adduction 3+ Fair+ Knee Strength Knee Manual Muscle Testing Right Flexion (S2) 3 Fair Extension (L3) 4 Good Left Flexion (S2) 3 Fair Extension (L3) 4 Good PT-OP-Q Treatments Start: 01/26/23 17:24 Freq: Status: Active Protocol: Document 03/31/23 13:45 DCW (Rec: 03/31/23 14:27 DCW [id number]) Gym Equipment Cable Column (Body Solid) Rows Resistance 50# Reps/Time x30 Lat Pull Down Resistance 60# Reps/Time x45 Shuttle Recovery Unilateral Squats Details AFOs removed Resistance 62# (two new bands) Shuttle Recovery Platform Stable Reps/Time x15 each Bilateral Squats Details AFOs removed Resistance 112# (four new bands) Shuttle Recovery Platform Stable Reps/Time x40 Therapeutic Exercises Other Exercises Side-stepping Other Exercise Name Side-stepping at rail Gait Training Gait Activity Steps Description Ascend/Descend 6 steps Device Used B rail Level of Assistance CGA Distance/Duration 3 steps x1, 2 steps x8 Comments Backs down steps for descent PT-OP-T Assessment and Plan Start: 01/26/23 17:24 Freq: Status: Active Protocol: Document 03/31/23 13:45 DCW (Rec: 03/31/23 14:27 DCW [id number]) Physical Therapy Assessment Impairments Impairments Activity Tolerance,Balance, Functional Activities, Functional Mobility,Gait,Pain, Posture,ROM,Strength,Tone, Transfers Goals Three Impairment Completes 5x Sit to testing and regulating chief 1 :51.03 Brand Communications Manager Goal (LTG) Pt to improve 5xStS score to < 60 seconds in order to display increased leg strength and improved transfer ability. LTG Duration 04/26/23 Two Impairment Pt ambulation limited to 142' in 3:20 using FWW. Longterm Goal (LTG) Pt to ambulate >800' during a 6 minute walk test to demonstrate improved activity tolerance and increased independent gait mobility LTG Duration 04/26/23 One Impairment Pt does not have an appropriate home exercise program Short Term Goal (STG) Pt to be independent and compliant with appropriate HEP STG Duration 02/27/23 Assessment Summary Assessment Improving strength, able to perfomr more reps with increased resistance. Demonstrating improvement with side-stepping and transfers. Continue to work on functional mobility, activity tolerance, and balance Physical Therapy Plan Frequency and Duration Frequency of Treatment 2x/Week Plan of Care Start Date 01/26/23 Plan of Care End Date 04/26/23 Therapeutic Interventions Therapeutic Interventions Balance Training,Coordination Training,Home Exercise Program ,Joint Mobilizations,Manual Therapy,Neuromuscular Re- education,Patient/Caregiver Education,Self-Care/Home Management,Soft Tissue Mobilization,Therapeutic Activities,Therapeutic Exercises Next Visit Focus/Plan Next Note Type Treatment Note Next Visit Plan LE strength, shoulder mobility , activty tolerance, balance and gait training
--- NOTE | 2023-04-06 15:32 | PT.OTN ---
Current Diagnoses Morbid (severe) obesity due to excess calories (04/06/23) Other chronic pain (04/06/23) Dorsalgia, unspecified (04/06/23) Muscle weakness (generalized) (04/06/23) Pain in right toe(s) (04/06/23) Pain in left toe(s) (04/06/23) Other abnormalities of gait and mobility (04/06/23) Other symptoms and signs involving the musculoskeletal system (04/06/23) Chronic fatigue, unspecified (04/06/23) Other reduced mobility (04/06/23) Physical Therapy Treatment Note PT-OP-A Visit Information Start: 01/26/23 17:24 Freq: Status: Active Protocol: Document 04/06/23 14:30 DCW (Rec: 04/06/23 15:31 DCW [id number]) Out-Patient Physical Therapy Visit Information Visit Information Visit Type Treatment Note Visit Start Time 14:30 Visit Stop Time 15:15 Total Visit Minutes 45 Visit Number 15 Number of WEB USER EXPERIENCE STRATEGIST Visits 0 Evaluation Information Evaluation Date 01/26/23 PT-OP-B Current Condition Start: 01/26/23 17:24 Freq: Status: Active Protocol: Document 01/26/23 14:00 DCW (Rec: 01/27/23 08:55 DCW [id number]) Current Condition History of Current Condition Onset Date February 2021 Current Complaints Weakness, poor balance, falls risk, physical debility History of Current Condition Pt is a 72 year old male presenting with a highly complex medical history. Pt is two years (February,) s/ p initial onset of health complications, which began with a severe bacterial respiratory infection. This resulted in a more than three month hospitalization, including requiring ventilation. Pt then discharged to a rehab facility for an additional four+ months, returning home in October. Pt begain outpatient physical therapy at this facility in December,, secondary to LE weakness, decreased mobility, fatigue, increased burden of care, inability to ambulate, bilateral foot drop, and R shoulder dysfunction, all seemingly stemming from illness and extended hospitalization. Pt has experienced additional health complications since beginning rehab initially, including a massive [place], which resulted in a pacemaker placement in June. At that time, only one lead was placed due to difficulty with the anatomy of cardiac arteries. After pacemaker was implanted, pt once again resumed PT, only to stop once again in order to have surgery at [facility] in January,, to place second pacemaker lead. Pt was recovering fairly well from surgery, however just last week, pt came to the ED with hypotension, and was once again transferred back down to [facility] from 01/16/23-01/20. Pt finally arrived back home one week ago, and has slowly been increasing activity level. Pt feeling better since lead placement, increased recovery and does not fatigue as quickly. Continues to primarily mobilize in a manual w/c, occasionally uses FWW for short distances around the home. Wears bilateral AFOs due to LE weakness/footdrop. Has difficulty with raising arms overhead bilaterally. Has been compliant recent with prior HEP, hoping to increase frequency or repetitions of exercises as tolerated. PT-OP-C Subjective Start: 01/26/23 17:24 Freq: Status: Active Protocol: Document 04/06/23 14:30 DCW (Rec: 04/06/23 15:31 DCW [id number]) OP-PT Subjective Patient Comments Patient Comments Pt reports he is very sore today after being ill for two nights, and also spending a day trying to build a new TV cabinet. I would prefer to work on balance/stability today instead of trying to strain. PT-OP-E Functional Tests Start: 01/26/23 17:24 Freq: Status: Active Protocol: Document 01/26/23 14:00 DCW (Rec: 01/27/23 08:55 DCW [id number]) Functional Tests Five Times Sit to Stand Test Score 1:51.03 Comments standing from w/c, wearing B AFO PT-OP-G Mobility & Gait Start: 01/27/23 08:55 Freq: Status: Active Protocol: Document 01/26/23 14:00 DCW (Rec: 01/27/23 08:58 DCW [id number]) OP Mobility Evaluation Wheelchair Management Type of Wheelchair Manual Assessment Details Uses B feet to self-propel OP Gait Assessment Gait Gait Assistance Required: Contact Guard Assist Distance (Feet) 142 Able to Maintain Weight Bearing Status Yes During Gait Assistive Devices Assistive Device Gait Belt,Front Wheeled Walker Orthotic/Prosthetic Devices or Brace: Yes Gait Deviations General Gait Pattern Antalgic,Decreased Stride Length,Decreased Feet Clearance,Flexed Trunk,Step-to Gait Factors Limiting Gait Function Factors Limiting Gait Function Decreased Activity Tolerance, Decreased Strength,Pain,Poor Balance Comments Gait Comments Pt instructed to ambulate as much as he could tolerate. Was able to walk 142' in 3:20. PT-OP-K Range of Motion Start: 01/27/23 08:55 Freq: Status: Active Protocol: Document 01/26/23 14:00 DCW (Rec: 01/27/23 08:58 DCW [id number]) Shoulder Goniometric Range of Motion Shoulder Right Active Testing Position Sitting Flexion 73 Abduction 61 Left Active Testing Position Sitting Flexion 93 Abduction 88 PT-OP-M Strength Start: 01/26/23 17:24 Freq: Status: Active Protocol: Document 01/26/23 14:00 DCW (Rec: 01/27/23 08:55 DCW [id number]) Hip Strength Hip Manual Muscle Testing Right Flexion (L2) 3 Fair Abduction 3 Fair Adduction 3+ Fair+ Left Flexion (L2) 3 Fair Abduction 3 Fair Adduction 3+ Fair+ Knee Strength Knee Manual Muscle Testing Right Flexion (S2) 3 Fair Extension (L3) 4 Good Left Flexion (S2) 3 Fair Extension (L3) 4 Good PT-OP-Q Treatments Start: 01/26/23 17:24 Freq: Status: Active Protocol: Document 04/06/23 14:30 DCW (Rec: 04/06/23 15:31 DCW [id number]) Therapeutic Exercises Sitting Exercises Overhead press Sitting Exercise Name Overhead press Side bilateral Resistance PVC Standing Exercises Mini-Lunge Standing Exercise Name Mini-lunge Side bilateral Equipment Used // bar, 12? slope Marching Standing Exercise Name Standing Marching Side bilateral Resistance 4# Hamstring Curls Standing Exercise Name Hamstring Curls Side bilateral Resistance 4# Other Exercises Retro Ambulation Other Exercise Name Retro Ambulation Side-stepping Other Exercise Name Side-stepping at rail Neuro Re-Education Treatment Balance Activities Weight Shift Details Lateral weight shift Surface Black foam Equipment // bars Static Balance Details WBOS, Staggered Surface // bars PT-OP-T Assessment and Plan Start: 01/26/23 17:24 Freq: Status: Active Protocol: Document 04/06/23 14:30 DCW (Rec: 04/06/23 15:31 DCW [id number]) Physical Therapy Assessment Impairments Impairments Activity Tolerance,Balance, Functional Activities, Functional Mobility,Gait,Pain, Posture,ROM,Strength,Tone, Transfers Goals Three Impairment Completes 5x Sit to maintenance advisor 1 :51.03 Half-Way Goal (LTG) Pt to improve 5xStS score to < 60 seconds in order to display increased leg strength and improved transfer ability. LTG Duration 04/26/23 Two Impairment Pt ambulation limited to 142' in 3:20 using FWW. Foam Molder Goal (LTG) Pt to ambulate >800' during a 6 minute walk test to demonstrate improved activity tolerance and increased independent gait mobility LTG Duration 04/26/23 One Impairment Pt does not have an appropriate home exercise program Short Term Goal (STG) Pt to be independent and compliant with appropriate HEP STG Duration 02/27/23 Assessment Summary Assessment Limited functional activity today due to ongoing pain and fatigue due to outside activity levels. Focused on gait and balance/mobility. Physical Therapy Plan Frequency and Duration Frequency of Treatment 2x/Week Plan of Care Start Date 01/26/23 Plan of Care End Date 04/26/23 Therapeutic Interventions Therapeutic Interventions Balance Training,Coordination Training,Home Exercise Program ,Joint Mobilizations,Manual Therapy,Neuromuscular Re- education,Patient/Caregiver Education,Self-Care/Home Management,Soft Tissue Mobilization,Therapeutic Activities,Therapeutic Exercises Next Visit Focus/Plan Next Note Type Treatment Note Next Visit Plan LE strength, shoulder mobility , activty tolerance, balance and gait training
--- NOTE | 2023-04-11 15:12 | PT.OTN ---
Current Diagnoses Morbid (severe) obesity due to excess calories (04/11/23) Other chronic pain (04/11/23) Dorsalgia, unspecified (04/11/23) Muscle weakness (generalized) (04/11/23) Pain in right toe(s) (04/11/23) Pain in left toe(s) (04/11/23) Other abnormalities of gait and mobility (04/11/23) Other symptoms and signs involving the musculoskeletal system (04/11/23) Chronic fatigue, unspecified (04/11/23) Other reduced mobility (04/11/23) Physical Therapy Treatment Note PT-OP-A Visit Information Start: 01/26/23 17:24 Freq: Status: Active Protocol: Document 04/11/23 14:30 DCW (Rec: 04/11/23 15:12 DCW [id number]) Out-Patient Physical Therapy Visit Information Visit Information Visit Type Treatment Note Visit Start Time 14:30 Visit Stop Time 15:15 Total Visit Minutes 45 Visit Number 16 Number of DIRECTOR OF IN SERVICE EDUCATION Visits 0 Evaluation Information Evaluation Date 01/26/23 PT-OP-B Current Condition Start: 01/26/23 17:24 Freq: Status: Active Protocol: Document 01/26/23 14:00 DCW (Rec: 01/27/23 08:55 DCW [id number]) Current Condition History of Current Condition Onset Date February 2021 Current Complaints Weakness, poor balance, falls risk, physical debility History of Current Condition Pt is a 72 year old male presenting with a highly complex medical history. Pt is two years (February,) s/ p initial onset of health complications, which began with a severe bacterial respiratory infection. This resulted in a more than three month hospitalization, including requiring ventilation. Pt then discharged to a rehab facility for an additional four+ months, returning home in October. Pt begain outpatient physical therapy at this facility in December,, secondary to LE weakness, decreased mobility, fatigue, increased burden of care, inability to ambulate, bilateral foot drop, and R shoulder dysfunction, all seemingly stemming from illness and extended hospitalization. 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 At that time, only one lead was placed due to difficulty with the anatomy of cardiac arteries. After pacemaker was implanted, pt once again resumed PT, only to stop once again in order to have surgery at [facility] in January,, to place second pacemaker lead. Pt was recovering fairly well from surgery, however just last week, pt came to the ED with hypotension, and was once again transferred back down to [facility] from 01/16/23-01/20. Pt finally arrived back home one week ago, and has slowly been increasing activity level. Pt feeling better since lead placement, increased recovery and does not fatigue as quickly. Continues to primarily mobilize in a manual w/c, occasionally uses FWW for short distances around the home. Wears bilateral AFOs due to LE weakness/footdrop. Has difficulty with raising arms overhead bilaterally. Has been compliant recent with prior HEP, hoping to increase frequency or repetitions of exercises as tolerated. PT-OP-C Subjective Start: 01/26/23 17:24 Freq: Status: Active Protocol: Document 04/11/23 14:30 DCW (Rec: 04/11/23 15:12 DCW [id number]) OP-PT Subjective Patient Comments Patient Comments Pt reports he is even more sore than last week, was awake until 3 am this morning due to increased discomfort. PT-OP-E Functional Tests Start: 01/26/23 17:24 Freq: Status: Active Protocol: Document 01/26/23 14:00 DCW (Rec: 01/27/23 08:55 DCW [id number]) Functional Tests Five Times Sit to Stand Test Score 1:51.03 Comments standing from w/c, wearing B AFO PT-OP-G Mobility & Gait Start: 01/27/23 08:55 Freq: Status: Active Protocol: Document 01/26/23 14:00 DCW (Rec: 01/27/23 08:58 DCW [id number]) OP Mobility Evaluation Wheelchair Management Type of Wheelchair Manual Assessment Details Uses B feet to self-propel OP Gait Assessment Gait Gait Assistance Required: Contact Guard Assist Distance (Feet) 142 Able to Maintain Weight Bearing Status Yes During Gait Assistive Devices Assistive Device Gait Belt,Front Wheeled Walker Orthotic/Prosthetic Devices or Brace: Yes Gait Deviations General Gait Pattern Antalgic,Decreased Stride Length,Decreased Feet Clearance,Flexed Trunk,Step-to Gait Factors Limiting Gait Function Factors Limiting Gait Function Decreased Activity Tolerance, Decreased Strength,Pain,Poor Balance Comments Gait Comments Pt instructed to ambulate as much as he could tolerate. Was able to walk 142' in 3:20. PT-OP-K Range of Motion Start: 01/27/23 08:55 Freq: Status: Active Protocol: Document 01/26/23 14:00 DCW (Rec: 01/27/23 08:58 DCW [id number]) Shoulder Goniometric Range of Motion Shoulder Right Active Testing Position Sitting Flexion 73 Abduction 61 Left Active Testing Position Sitting Flexion 93 Abduction 88 PT-OP-M Strength Start: 01/26/23 17:24 Freq: Status: Active Protocol: Document 01/26/23 14:00 DCW (Rec: 01/27/23 08:55 DCW [id number]) Hip Strength Hip Manual Muscle Testing Right Flexion (L2) 3 Fair Abduction 3 Fair Adduction 3+ Fair+ Left Flexion (L2) 3 Fair Abduction 3 Fair Adduction 3+ Fair+ Knee Strength Knee Manual Muscle Testing Right Flexion (S2) 3 Fair Extension (L3) 4 Good Left Flexion (S2) 3 Fair Extension (L3) 4 Good PT-OP-Q Treatments Start: 01/26/23 17:24 Freq: Status: Active Protocol: Document 04/11/23 14:30 DCW (Rec: 04/11/23 15:12 DCW [id number]) Gym Equipment Cable Column (Body Solid) Horizontal Adduction Details Cable column at chest height Resistance 20# Reps/Time x10 Reverse Fly Details Cable column at chest height Resistance 30# Reps/Time x35 Triceps Details Triceps press Resistance 20# Reps/Time x35 Rows Resistance 50# Reps/Time x25 Biceps Curl Details Cable column in lowest position Resistance 12.5# Reps/Time x25 Lat Pull Down Resistance 60# Reps/Time x35 Shuttle Recovery Unilateral Squats Details AFOs removed Resistance R 50# (two new), L 62# (two new) Shuttle Recovery Platform Stable Reps/Time x25 each Bilateral Squats Details AFOs removed Resistance 112# (four new bands) Shuttle Recovery Platform Stable Reps/Time x50 Gait Training Gait Activity Steps Description Ascend/Descend 6 steps Device Used B rail Level of Assistance CGA Distance/Duration 3 steps x1, 2 steps x5 Comments Backs down steps for descent PT-OP-T Assessment and Plan Start: 10/26/23 17:24 Freq: Status: Active Protocol: Document 04/11/23 14:30 DCW (Rec: 04/11/23 15:12 DCW [id number]) Physical Therapy Assessment Impairments Impairments Activity Tolerance,Balance, Functional Activities, Functional Mobility,Gait,Pain, Posture,ROM,Strength,Tone, Transfers Goals Three Impairment Completes 5x Sit to highway construction inspector 1 :51.03 Care Home Goal (LTG) Pt to improve 5xStS score to < 60 seconds in order to display increased leg strength and improved transfer ability. LTG Duration 04/26/23 Two Impairment Pt ambulation limited to 142' in 3:20 using FWW. Care Home Goal (LTG) Pt to ambulate >800' during a 6 minute walk test to demonstrate improved activity tolerance and increased independent gait mobility LTG Duration 04/26/23 One Impairment Pt does not have an appropriate home exercise program Short Term Goal (STG) Pt to be independent and compliant with appropriate HEP STG Duration 02/27/23 Assessment Summary Assessment Pt struggled more today with muscle fatigue, unable to match prior reps on most activities. Continue to focus on activity tolerance and strengthening. Physical Therapy Plan Frequency and Duration Frequency of Treatment 2x/Week Plan of Care Start Date 01/26/23 Plan of Care End Date 04/26/23 Therapeutic Interventions Therapeutic Interventions Balance Training,Coordination Training,Home Exercise Program ,Joint Mobilizations,Manual Therapy,Neuromuscular Re- education,Patient/Caregiver Education,Self-Care/Home Management,Soft Tissue Mobilization,Therapeutic Activities,Therapeutic Exercises Next Visit Focus/Plan Next Note Type Treatment Note Next Visit Plan LE strength, shoulder mobility , activty tolerance, balance and gait training
--- NOTE | 2023-04-18 15:14 | PT.OTN ---
Current Diagnoses Morbid (severe) obesity due to excess calories (04/18/23) Other chronic pain (04/18/23) Dorsalgia, unspecified (04/18/23) Muscle weakness (generalized) (04/18/23) Pain in right toe(s) (04/18/23) Pain in left toe(s) (04/18/23) Other abnormalities of gait and mobility (04/18/23) Other symptoms and signs involving the musculoskeletal system (04/18/23) Chronic fatigue, unspecified (04/18/23) Other reduced mobility (04/18/23) Physical Therapy Treatment Note PT-OP-A Visit Information Start: 01/26/23 17:24 Freq: Status: Active Protocol: Document 04/18/23 14:30 DCW (Rec: 04/18/23 15:14 DCW [id number]) Out-Patient Physical Therapy Visit Information Visit Information Visit Type Treatment Note Visit Start Time 14:30 Visit Stop Time 15:15 Total Visit Minutes 45 Visit Number 16 Number of LOAD OUT PERSON Visits 0 Evaluation Information Evaluation Date 01/26/23 PT-OP-B Current Condition Start: 01/26/23 17:24 Freq: Status: Active Protocol: Document 01/26/23 14:00 DCW (Rec: 01/27/23 08:55 DCW [id number]) Current Condition History of Current Condition Onset Date February 2021 Current Complaints Weakness, poor balance, falls risk, physical debility History of Current Condition Pt is a 72 year old male presenting with a highly complex medical history. Pt is two years (February,) s/ p initial onset of health complications, which began with a severe bacterial respiratory infection. This resulted in a more than three month hospitalization, including requiring ventilation. Pt then discharged to a rehab facility for an additional four+ months, returning home in October. Pt begain outpatient physical therapy at this facility in December,, secondary to LE weakness, decreased mobility, fatigue, increased burden of care, inability to ambulate, bilateral foot drop, and R shoulder dysfunction, all seemingly stemming from illness and extended hospitalization. 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 At that time, only one lead was placed due to difficulty with the anatomy of cardiac arteries. After pacemaker was implanted, pt once again resumed PT, only to stop once again in order to have surgery at [facility] in January,, to place second pacemaker lead. Pt was recovering fairly well from surgery, however just last week, pt came to the ED with hypotension, and was once again transferred back down to [facility] from 01/16/23-01/20. Pt finally arrived back home one week ago, and has slowly been increasing activity level. Pt feeling better since lead placement, increased recovery and does not fatigue as quickly. Continues to primarily mobilize in a manual w/c, occasionally uses FWW for short distances around the home. Wears bilateral AFOs due to LE weakness/footdrop. Has difficulty with raising arms overhead bilaterally. Has been compliant recent with prior HEP, hoping to increase frequency or repetitions of exercises as tolerated. PT-OP-C Subjective Start: 01/26/23 17:24 Freq: Status: Active Protocol: Document 04/18/23 14:30 DCW (Rec: 04/18/23 15:14 DCW [id number]) OP-PT Subjective Patient Comments Patient Comments Pt notes he is feeling well today PT-OP-E Functional Tests Start: 01/26/23 17:24 Freq: Status: Active Protocol: Document 01/26/23 14:00 DCW (Rec: 01/27/23 08:55 DCW [id number]) Functional Tests Five Times Sit to Stand Test Score 1:51.03 Comments standing from w/c, wearing B AFO PT-OP-G Mobility & Gait Start: 01/27/23 08:55 Freq: Status: Active Protocol: Document 01/26/23 14:00 DCW (Rec: 01/27/23 08:58 DCW [id number]) OP Mobility Evaluation Wheelchair Management Type of Wheelchair Manual Assessment Details Uses B feet to self-propel OP Gait Assessment Gait Gait Assistance Required: Contact Guard Assist Distance (Feet) 142 Able to Maintain Weight Bearing Status Yes During Gait Assistive Devices Assistive Device Gait Belt,Front Wheeled Walker Orthotic/Prosthetic Devices or Brace: Yes Gait Deviations General Gait Pattern Antalgic,Decreased Stride Length,Decreased Feet Clearance,Flexed Trunk,Step-to Gait Factors Limiting Gait Function Factors Limiting Gait Function Decreased Activity Tolerance, Decreased Strength,Pain,Poor Balance Comments Gait Comments Pt instructed to ambulate as much as he could tolerate. Was able to walk 142' in 3:20. PT-OP-K Range of Motion Start: 01/27/23 08:55 Freq: Status: Active Protocol: Document 01/26/23 14:00 DCW (Rec: 01/27/23 08:58 DCW [id number]) Shoulder Goniometric Range of Motion Shoulder Right Active Testing Position Sitting Flexion 73 Abduction 61 Left Active Testing Position Sitting Flexion 93 Abduction 88 PT-OP-M Strength Start: 01/26/23 17:24 Freq: Status: Active Protocol: Document 01/26/23 14:00 DCW (Rec: 01/27/23 08:55 DCW [id number]) Hip Strength Hip Manual Muscle Testing Right Flexion (L2) 3 Fair Abduction 3 Fair Adduction 3+ Fair+ Left Flexion (L2) 3 Fair Abduction 3 Fair Adduction 3+ Fair+ Knee Strength Knee Manual Muscle Testing Right Flexion (S2) 3 Fair Extension (L3) 4 Good Left Flexion (S2) 3 Fair Extension (L3) 4 Good PT-OP-Q Treatments Start: 01/26/23 17:24 Freq: Status: Active Protocol: Document 04/18/23 14:30 DCW (Rec: 04/18/23 15:14 DCW [id number]) Gym Equipment Cable Column (Body Solid) Horizontal Adduction Details Cable column at chest height Resistance 20# Reps/Time x30 Reverse Fly Details Cable column at chest height Resistance 30# Reps/Time x40 Triceps Details Triceps press Resistance 20# Reps/Time x31 Rows Resistance 50# Reps/Time x30 Biceps Curl Details Cable column in lowest position Resistance 12.5# Reps/Time x10 Lat Pull Down Resistance 60# Reps/Time x43 Shuttle Recovery Unilateral Squats Details AFOs removed Resistance R 50# (two new), L 62# (two new) Shuttle Recovery Platform Stable Reps/Time x20 each Bilateral Squats Details AFOs removed Resistance 112# (four new bands) Shuttle Recovery Platform Stable Reps/Time x50 Gait Training Gait Activity Steps Description Ascend/Descend 6 steps Device Used B rail Level of Assistance CGA Distance/Duration 3 steps x1, 2 steps x10 Comments Backs down steps for descent PT-OP-T Assessment and Plan Start: 01/26/23 17:24 Freq: Status: Active Protocol: Document 01/16/24 14:30 DCW (Rec: 04/18/23 15:14 DCW [id number]) Physical Therapy Assessment Impairments Impairments Activity Tolerance,Balance, Functional Activities, Functional Mobility,Gait,Pain, Posture,ROM,Strength,Tone, Transfers Goals Three Impairment Completes 5x Sit to service trainer 1 :51.03 Prison Goal (LTG) Pt to improve 5xStS score to < 60 seconds in order to display increased leg strength and improved transfer ability. LTG Duration 04/26/23 Two Impairment Pt ambulation limited to 142' in 3:20 using FWW. Prison Goal (LTG) Pt to ambulate >800' during a 6 minute walk test to demonstrate improved activity tolerance and increased independent gait mobility LTG Duration 04/26/23 One Impairment Pt does not have an appropriate home exercise program Short Term Goal (STG) Pt to be independent and compliant with appropriate HEP STG Duration 02/27/23 Assessment Summary Assessment Doing better today than last week, improved tolerance to stairs. Good response to UE strengthening. Working on ambulation at home. Physical Therapy Plan Frequency and Duration Frequency of Treatment 2x/Week Plan of Care Start Date 01/26/23 Plan of Care End Date 04/26/23 Therapeutic Interventions Therapeutic Interventions Balance Training,Coordination Training,Home Exercise Program ,Joint Mobilizations,Manual Therapy,Neuromuscular Re- education,Patient/Caregiver Education,Self-Care/Home Management,Soft Tissue Mobilization,Therapeutic Activities,Therapeutic Exercises Next Visit Focus/Plan Next Note Type Treatment Note Next Visit Plan LE strength, shoulder mobility , activty tolerance, balance and gait training
--- NOTE | 2023-05-02 15:15 | PT.OTN ---
Current Diagnoses Morbid (severe) obesity due to excess calories (05/02/23) Other chronic pain (05/02/23) Dorsalgia, unspecified (05/02/23) Muscle weakness (generalized) (05/02/23) Pain in right toe(s) (05/02/23) Pain in left toe(s) (05/02/23) Other abnormalities of gait and mobility (05/02/23) Other symptoms and signs involving the musculoskeletal system (05/02/23) Chronic fatigue, unspecified (05/02/23) Other reduced mobility (05/02/23) Physical Therapy Treatment Note PT-OP-A Visit Information Start: 01/26/23 17:24 Freq: Status: Active Protocol: Document 05/02/23 14:30 DCW (Rec: 05/02/23 15:15 DCW [id number]) Out-Patient Physical Therapy Visit Information Visit Information Visit Type Progress Note Visit Start Time 14:30 Visit Stop Time 15:15 Visit Number 17 Number of PAINT STOCK CLERK Visits 0 Evaluation Information Evaluation Date 01/26/23 PT-OP-B Current Condition Start: 01/26/23 17:24 Freq: Status: Active Protocol: Document 01/26/23 14:00 DCW (Rec: 01/27/23 08:55 DCW [id number]) Current Condition History of Current Condition Onset Date February 2021 Current Complaints Weakness, poor balance, falls risk, physical debility History of Current Condition Pt is a 72 year old male presenting with a highly complex medical history. Pt is two years (February,) s/ p initial onset of health complications, which began with a severe bacterial respiratory infection. This resulted in a more than three month hospitalization, including requiring ventilation. Pt then discharged to a rehab facility for an additional four+ months, returning home in October. Pt begain outpatient physical therapy at this facility in December,, secondary to LE weakness, decreased mobility, fatigue, increased burden of care, inability to ambulate, bilateral foot drop, and R shoulder dysfunction, all seemingly stemming from illness and extended hospitalization. 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 At that time, only one lead was placed due to difficulty with the anatomy of cardiac arteries. After pacemaker was implanted, pt once again resumed PT, only to stop once again in order to have surgery at [facility] in January,, to place second pacemaker lead. Pt was recovering fairly well from surgery, however just last week, pt came to the ED with hypotension, and was once again transferred back down to [facility] from 01/16/23-01/20. Pt finally arrived back home one week ago, and has slowly been increasing activity level. Pt feeling better since lead placement, increased recovery and does not fatigue as quickly. Continues to primarily mobilize in a manual w/c, occasionally uses FWW for short distances around the home. Wears bilateral AFOs due to LE weakness/footdrop. Has difficulty with raising arms overhead bilaterally. Has been compliant recent with prior HEP, hoping to increase frequency or repetitions of exercises as tolerated. PT-OP-C Subjective Start: 01/26/23 17:24 Freq: Status: Active Protocol: Document 05/02/23 14:30 DCW (Rec: 05/02/23 15:15 DCW [id number]) OP-PT Subjective Patient Comments Patient Comments Pt has been doing well with his HEP PT-OP-E Functional Tests Start: 01/26/23 17:24 Freq: Status: Active Protocol: Document 05/02/23 14:30 DCW (Rec: 05/02/23 14:54 DCW [id number]) Functional Tests 6 Minute Walk Test Distance 410' Device Used FWW Comments 1.13 ft/sec Five Times Sit to Stand Test Score 1:20.90 Comments standing from w/c, wearing B AFO PT-OP-G Mobility & Gait Start: 01/27/23 08:55 Freq: Status: Active Protocol: Document 05/02/23 14:30 DCW (Rec: 05/02/23 14:54 DCW [id number]) OP Gait Assessment Gait Gait Assistance Required: Contact Guard Assist Distance (Feet) 410 Able to Maintain Weight Bearing Status Yes During Gait Assistive Devices Assistive Device Gait Belt,Front Wheeled Walker Orthotic/Prosthetic Devices or Brace: Yes Gait Deviations General Gait Pattern Antalgic,Decreased Stride Length,Decreased Feet Clearance,Flexed Trunk,Step-to Gait Factors Limiting Gait Function Factors Limiting Gait Function Decreased Activity Tolerance, Decreased Strength,Pain,Poor Balance PT-OP-K Range of Motion Start: 01/27/23 08:55 Freq: Status: Active Protocol: Document 05/02/23 14:30 DCW (Rec: 05/02/23 14:54 DCW [id number]) Shoulder Goniometric Range of Motion Shoulder Right Active Testing Position Sitting Flexion 114 Abduction 88 Left Active Testing Position Sitting Flexion 97 Abduction 90 PT-OP-M Strength Start: 01/26/23 17:24 Freq: Status: Active Protocol: Document 05/02/23 14:30 DCW (Rec: 05/02/23 14:54 DCW [id number]) Hip Strength Hip Manual Muscle Testing Right Flexion (L2) 3+ Fair+ Abduction 3+ Fair+ Adduction 4- Good- Left Flexion (L2) 3+ Fair+ Abduction 3+ Fair+ Adduction 4- Good- Knee Strength Knee Manual Muscle Testing Right Flexion (S2) 3+ Fair+ Extension (L3) 4+ Good+ Left Flexion (S2) 3+ Fair+ Extension (L3) 4+ Good+ PT-OP-Q Treatments Start: 01/26/23 17:24 Freq: Status: Active Protocol: Document 05/02/23 14:30 DCW (Rec: 05/02/23 15:15 DCW [id number]) Therapeutic Activity Therapeutic Activity Toilet Transfers Reps/Minutes x8 Comments Stand-pivot transfer @ rail, 35 rail, mesh chair /s arm rests to replicate toilet transfers PT-OP-T Assessment and Plan Start: 01/26/23 17:24 Freq: Status: Active Protocol: Document 05/02/23 14:30 DCW (Rec: 05/02/23 15:15 DCW [id number]) Physical Therapy Assessment Impairments Impairments Activity Tolerance,Balance, Functional Activities, Functional Mobility,Gait,Pain, Posture,ROM,Strength,Tone, Transfers Goals Three Impairment Completes 5x Sit to manufacturing group leader 1 :51.03 Impairment 05/02/23: 1:20.90 Laborer Operator Goal (LTG) Pt to improve 5xStS score to < 60 seconds in order to display increased leg strength and improved transfer ability. LTG Duration 07/31/23 - Improving Two Impairment Pt ambulation limited to 142' in 3:20 using FWW. Impairment 05/02/23: 6MWT 410' Laborer Operator Goal (LTG) Pt to ambulate >800' during a 6 minute walk test to demonstrate improved activity tolerance and increased independent gait mobility LTG Duration 07/31/23 - Improving One Impairment Pt does not have an appropriate home exercise program Short Term Goal (STG) Pt to be independent and compliant with appropriate HEP STG Duration Met Assessment Summary Assessment Pt demonstrating good improvements in all areas. At time of eval, pt fatigued after ambulating 3 minutes, today was able to complete a 6MWT, during which he ambulated 410' using his FWW. Additionally, improved 5xStS test by more than 30 seconds. Continues to show improvement in B LE strength. Pt should benefit from continued focus on improving LE/UE ROM, strengthening, increased activity tolerance, and gait/ balance training. Physical Therapy Plan Frequency and Duration Frequency of Treatment 2x/Week Plan of Care Start Date 05/02/23 Plan of Care End Date 07/31/23 Therapeutic Interventions Therapeutic Interventions Balance Training,Coordination Training,Home Exercise Program ,Joint Mobilizations,Manual Therapy,Neuromuscular Re- education,Patient/Caregiver Education,Self-Care/Home Management,Soft Tissue Mobilization,Therapeutic Activities,Therapeutic Exercises Next Visit Focus/Plan Next Note Type Treatment Note Next Visit Plan LE strength, shoulder mobility , activty tolerance, balance and gait training
--- NOTE | 2023-05-02 15:16 | PT.OPPOC ---
Physical, Occupational & Speech Therapy At [facility] Current Diagnoses Morbid (severe) obesity due to excess calories (05/02/23) Other chronic pain (05/02/23) Dorsalgia, unspecified (05/02/23) Muscle weakness (generalized) (05/02/23) Pain in right toe(s) (05/02/23) Pain in left toe(s) (05/02/23) Other abnormalities of gait and mobility (05/02/23) Other symptoms and signs involving the musculoskeletal system (05/02/23) Chronic fatigue, unspecified (05/02/23) Other reduced mobility (05/02/23) Visit Care Team Role Provider Type Brandon Houston MD Family Provider Non-Staff Specialty: Internal Medicine Address: [address] [place] [address], [place] [address] Email: Matt Lopez MD Attending Provider Physician Primary Care Provider Referring Provider Specialty: Family Practice Obstetrics Address: [address] [place] [address] Email: [email or web address] Plan Of Care PT-OP-T Assessment and Plan Start: 01/26/23 17:24 Freq: Status: Active Protocol: Document 05/02/23 14:30 DCW (Rec: 05/02/23 15:15 DCW [id number]) Physical Therapy Assessment Impairments Impairments Activity Tolerance,Balance, Functional Activities, Functional Mobility,Gait,Pain, Posture,ROM,Strength,Tone, Transfers Goals Three Impairment Completes 5x Sit to insulation blower 1 :51.03 Impairment 05/02/23: 1:20.90 Parts Order And Stock Clerk Goal (LTG) Pt to improve 5xStS score to < 60 seconds in order to display increased leg strength and improved transfer ability. LTG Duration 07/31/23 - Improving Two Impairment Pt ambulation limited to 142' in 3:20 using FWW. Impairment 05/02/23: 6MWT 410' Parts Order And Stock Clerk Goal (LTG) Pt to ambulate >800' during a 6 minute walk test to demonstrate improved activity tolerance and increased independent gait mobility LTG Duration 07/31/23 - Improving One Impairment Pt does not have an appropriate home exercise program Short Term Goal (STG) Pt to be independent and compliant with appropriate HEP STG Duration Met Assessment Summary Assessment Pt demonstrating good improvements in all areas. At time of eval, pt fatigued after ambulating 3 minutes, today was able to complete a 6MWT, during which he ambulated 410' using his FWW. Additionally, improved 5xStS test by more than 30 seconds. Continues to show improvement in B LE strength. Pt should benefit from continued focus on improving LE/UE ROM, strengthening, increased activity tolerance, and gait/ balance training. Physical Therapy Plan Frequency and Duration Frequency of Treatment 2x/Week Plan of Care Start Date 05/02/23 Plan of Care End Date 07/31/23 Therapeutic Interventions Therapeutic Interventions Balance Training,Coordination Training,Home Exercise Program ,Joint Mobilizations,Manual Therapy,Neuromuscular Re- education,Patient/Caregiver Education,Self-Care/Home Management,Soft Tissue Mobilization,Therapeutic Activities,Therapeutic Exercises Next Visit Focus/Plan Next Note Type Treatment Note Next Visit Plan LE strength, shoulder mobility , activty tolerance, balance and gait training Plan of Care Dates Plan of Care Start Date 05/02/23 Plan of Care End Date 07/31/23 Electronically Signed by: Rikki Lopez, PT 05/02/23 8269 If you are in agreement with this Plan of Care, please return a signed and dated copy. I have reviewed this Plan of Care and certify that the skilled therapy services above are required to meet the patient?s needs. Physician Signature Date Printed Name and Credentials Clinical Instructor Signature Printed Name and Credentials
--- NOTE | 2023-05-05 15:22 | PT.OTN ---
Current Diagnoses Morbid (severe) obesity due to excess calories (05/05/23) Other chronic pain (05/05/23) Dorsalgia, unspecified (05/05/23) Muscle weakness (generalized) (05/05/23) Pain in right toe(s) (05/05/23) Pain in left toe(s) (05/05/23) Other abnormalities of gait and mobility (05/05/23) Other symptoms and signs involving the musculoskeletal system (05/05/23) Chronic fatigue, unspecified (05/05/23) Other reduced mobility (05/05/23) Physical Therapy Treatment Note PT-OP-A Visit Information Start: 01/26/23 17:24 Freq: Status: Active Protocol: Document 05/05/23 14:30 DCW (Rec: 05/05/23 15:22 DCW [id number]) Out-Patient Physical Therapy Visit Information Visit Information Visit Type Treatment Note Visit Start Time 14:30 Visit Stop Time 15:15 Visit Number 18 Number of AMUSEMENT CENTRE MANAGER Visits 0 Evaluation Information Evaluation Date 01/26/23 PT-OP-B Current Condition Start: 01/26/23 17:24 Freq: Status: Active Protocol: Document 01/26/23 14:00 DCW (Rec: 01/27/23 08:55 DCW [id number]) Current Condition History of Current Condition Onset Date February 2021 Current Complaints Weakness, poor balance, falls risk, physical debility History of Current Condition Pt is a 72 year old male presenting with a highly complex medical history. Pt is two years (February,) s/ p initial onset of health complications, which began with a severe bacterial respiratory infection. This resulted in a more than three month hospitalization, including requiring ventilation. Pt then discharged to a rehab facility for an additional four+ months, returning home in October. Pt begain outpatient physical therapy at this facility in December,, secondary to LE weakness, decreased mobility, fatigue, increased burden of care, inability to ambulate, bilateral foot drop, and R shoulder dysfunction, all seemingly stemming from illness and extended hospitalization. 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 At that time, only one lead was placed due to difficulty with the anatomy of cardiac arteries. After pacemaker was implanted, pt once again resumed PT, only to stop once again in order to have surgery at [facility] in January,, to place second pacemaker lead. Pt was recovering fairly well from surgery, however just last week, pt came to the ED with hypotension, and was once again transferred back down to [facility] from 01/16/23-01/20. Pt finally arrived back home one week ago, and has slowly been increasing activity level. Pt feeling better since lead placement, increased recovery and does not fatigue as quickly. Continues to primarily mobilize in a manual w/c, occasionally uses FWW for short distances around the home. Wears bilateral AFOs due to LE weakness/footdrop. Has difficulty with raising arms overhead bilaterally. Has been compliant recent with prior HEP, hoping to increase frequency or repetitions of exercises as tolerated. PT-OP-C Subjective Start: 01/26/23 17:24 Freq: Status: Active Protocol: Document 05/05/23 14:30 DCW (Rec: 05/05/23 15:22 DCW [id number]) OP-PT Subjective Patient Comments Patient Comments Pt was quite fatigued following his re-testing earlier this week, but has recovered. Notes he has started a new BP medication, was told to not let it get below 100. Measured today at 143/78 PT-OP-E Functional Tests Start: 01/26/23 17:24 Freq: Status: Active Protocol: Document 05/02/23 14:30 DCW (Rec: 05/02/23 14:54 DCW [id number]) Functional Tests 6 Minute Walk Test Distance 410' Device Used FWW Comments 1.13 ft/sec Five Times Sit to Stand Test Score 1:20.90 Comments standing from w/c, wearing B AFO PT-OP-G Mobility & Gait Start: 01/27/23 08:55 Freq: Status: Active Protocol: Document 05/02/23 14:30 DCW (Rec: 05/02/23 14:54 DCW [id number]) OP Gait Assessment Gait Gait Assistance Required: Contact Guard Assist Distance (Feet) 410 Able to Maintain Weight Bearing Status Yes During Gait Assistive Devices Assistive Device Gait Belt,Front Wheeled Walker Orthotic/Prosthetic Devices or Brace: Yes Gait Deviations General Gait Pattern Antalgic,Decreased Stride Length,Decreased Feet Clearance,Flexed Trunk,Step-to Gait Factors Limiting Gait Function Factors Limiting Gait Function Decreased Activity Tolerance, Decreased Strength,Pain,Poor Balance PT-OP-K Range of Motion Start: 01/27/23 08:55 Freq: Status: Active Protocol: Document 05/02/23 14:30 DCW (Rec: 05/02/23 14:54 DCW [id number]) Shoulder Goniometric Range of Motion Shoulder Right Active Testing Position Sitting Flexion 114 Abduction 88 Left Active Testing Position Sitting Flexion 97 Abduction 90 PT-OP-M Strength Start: 01/26/23 17:24 Freq: Status: Active Protocol: Document 05/02/23 14:30 DCW (Rec: 05/02/23 14:54 DCW [id number]) Hip Strength Hip Manual Muscle Testing Right Flexion (L2) 3+ Fair+ Abduction 3+ Fair+ Adduction 4- Good- Left Flexion (L2) 3+ Fair+ Abduction 3+ Fair+ Adduction 4- Good- Knee Strength Knee Manual Muscle Testing Right Flexion (S2) 3+ Fair+ Extension (L3) 4+ Good+ Left Flexion (S2) 3+ Fair+ Extension (L3) 4+ Good+ PT-OP-Q Treatments Start: 01/26/23 17:24 Freq: Status: Active Protocol: Document 05/05/23 14:30 DCW (Rec: 05/05/23 15:22 DCW [id number]) Gym Equipment Cable Column (Body Solid) Horizontal Adduction Details Cable column at chest height Resistance 20# Reps/Time x30 Reverse Fly Details Cable column at chest height Resistance 32.5# Reps/Time x40 Triceps Details Triceps press Resistance 22.5# Reps/Time x20 Rows Resistance 50# Reps/Time x35 Biceps Curl Details Cable column in lowest position Resistance 12.5# Reps/Time x20 Lat Pull Down Resistance 60# Reps/Time x50 Shuttle Recovery Unilateral Squats Details AFOs removed Resistance 62# (two new) Shuttle Recovery Platform Stable Reps/Time 2x15 each Bilateral Squats Details AFOs removed Resistance 112# (four new bands) Shuttle Recovery Platform Stable Reps/Time x50 Gait Training Gait Activity Steps Description Ascend/Descend 6 steps Device Used B rail Level of Assistance CGA Distance/Duration 3 steps x1, 2 steps x11 Comments Backs down steps for descent PT-OP-T Assessment and Plan Start: 01/26/23 17:24 Freq: Status: Active Protocol: Document 05/05/23 14:30 DCW (Rec: 05/05/23 15:22 DCW [id number]) Physical Therapy Assessment Impairments Impairments Activity Tolerance,Balance, Functional Activities, Functional Mobility,Gait,Pain, Posture,ROM,Strength,Tone, Transfers Goals Three Impairment 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 LTG Duration 07/31/23 - Improving Two Impairment Pt ambulation limited to 142' in 3:20 using FWW. Impairment 05/02/23: 6MWT 410' Intermediate Goal (LTG) Pt to ambulate >800' during a 6 minute walk test to demonstrate improved activity tolerance and increased independent gait mobility LTG Duration 07/31/23 - Improving One Impairment Pt does not have an appropriate home exercise program Short Term Goal (STG) Pt to be independent and compliant with appropriate HEP STG Duration Met Assessment Summary Assessment Significantly improved functional mobility getting himself onto/off of shuttle recovery. Continues to increased at-home ambulation. Continue to focus on strengthening, functional mobility, gait training, and increasing activity tolerance Physical Therapy Plan Frequency and Duration Frequency of Treatment 2x/Week Plan of Care Start Date 05/02/23 Plan of Care End Date 07/31/23 Therapeutic Interventions Therapeutic Interventions Balance Training,Coordination Training,Home Exercise Program ,Joint Mobilizations,Manual Therapy,Neuromuscular Re- education,Patient/Caregiver Education,Self-Care/Home Management,Soft Tissue Mobilization,Therapeutic Activities,Therapeutic Exercises Next Visit Focus/Plan Next Note Type Treatment Note Next Visit Plan LE strength, shoulder mobility , activty tolerance, balance and gait training
--- NOTE | 2023-05-09 15:13 | PT.OTN ---
Current Diagnoses Morbid (severe) obesity due to excess calories (05/09/23) Other chronic pain (05/09/23) Dorsalgia, unspecified (05/09/23) Muscle weakness (generalized) (05/09/23) Pain in right toe(s) (05/09/23) Pain in left toe(s) (05/09/23) Other abnormalities of gait and mobility (05/09/23) Other symptoms and signs involving the musculoskeletal system (05/09/23) Chronic fatigue, unspecified (05/09/23) Other reduced mobility (05/09/23) Physical Therapy Treatment Note PT-OP-A Visit Information Start: 01/26/23 17:24 Freq: Status: Active Protocol: Document 05/09/23 14:30 DCW (Rec: 05/09/23 15:13 DCW [id number]) Out-Patient Physical Therapy Visit Information Visit Information Visit Type Treatment Note Visit Start Time 14:30 Visit Stop Time 15:15 Visit Number 19 Number of MICROBIOLOGICAL ANALYST Visits 0 Evaluation Information Evaluation Date 01/26/23 PT-OP-B Current Condition Start: 01/26/23 17:24 Freq: Status: Active Protocol: Document 01/26/23 14:00 DCW (Rec: 01/27/23 08:55 DCW [id number]) Current Condition History of Current Condition Onset Date February 2021 Current Complaints Weakness, poor balance, falls risk, physical debility History of Current Condition Pt is a 72 year old male presenting with a highly complex medical history. Pt is two years (February,) s/ p initial onset of health complications, which began with a severe bacterial respiratory infection. This resulted in a more than three month hospitalization, including requiring ventilation. Pt then discharged to a rehab facility for an additional four+ months, returning home in October. Pt begain outpatient physical therapy at this facility in December,, secondary to LE weakness, decreased mobility, fatigue, increased burden of care, inability to ambulate, bilateral foot drop, and R shoulder dysfunction, all seemingly stemming from illness and extended hospitalization. Pt has experienced additional health complications since beginning rehab initially, including a massive NH, which resulted in a pacemaker placement in June. At that time, only one lead was placed due to difficulty with the anatomy of cardiac arteries. After pacemaker was implanted, pt once again resumed PT, only to stop once again in order to have surgery at [facility] in January,, to place second pacemaker lead. Pt was recovering fairly well from surgery, however just last week, pt came to the ED with hypotension, and was once again transferred back down to [facility] from 01/16/23-01/20. Pt finally arrived back home one week ago, and has slowly been increasing activity level. Pt feeling better since lead placement, increased recovery and does not fatigue as quickly. Continues to primarily mobilize in a manual w/c, occasionally uses FWW for short distances around the home. Wears bilateral AFOs due to LE weakness/footdrop. Has difficulty with raising arms overhead bilaterally. Has been compliant recent with prior HEP, hoping to increase frequency or repetitions of exercises as tolerated. PT-OP-C Subjective Start: 01/26/23 17:24 Freq: Status: Active Protocol: Document 05/09/23 14:30 DCW (Rec: 05/09/23 15:13 DCW [id number]) OP-PT Subjective Patient Comments Patient Comments The pain really hit last night. PT-OP-E Functional Tests Start: 01/26/23 17:24 Freq: Status: Active Protocol: Document 05/02/23 14:30 DCW (Rec: 05/02/23 14:54 DCW [id number]) Functional Tests 6 Minute Walk Test Distance 410' Device Used FWW Comments 1.13 ft/sec Five Times Sit to Stand Test Score 1:20.90 Comments standing from w/c, wearing B AFO PT-OP-G Mobility & Gait Start: 01/27/23 08:55 Freq: Status: Active Protocol: Document 05/02/23 14:30 DCW (Rec: 05/02/23 14:54 DCW [id number]) OP Gait Assessment Gait Gait Assistance Required: Contact Guard Assist Distance (Feet) 410 Able to Maintain Weight Bearing Status Yes During Gait Assistive Devices Assistive Device Gait Belt,Front Wheeled Walker Orthotic/Prosthetic Devices or Brace: Yes Gait Deviations General Gait Pattern Antalgic,Decreased Stride Length,Decreased Feet Clearance,Flexed Trunk,Step-to Gait Factors Limiting Gait Function Factors Limiting Gait Function Decreased Activity Tolerance, Decreased Strength,Pain,Poor Balance PT-OP-K Range of Motion Start: 01/27/23 08:55 Freq: Status: Active Protocol: Document 05/02/23 14:30 DCW (Rec: 05/02/23 14:54 DCW [id number]) Shoulder Goniometric Range of Motion Shoulder Right Active Testing Position Sitting Flexion 114 Abduction 88 Left Active Testing Position Sitting Flexion 97 Abduction 90 PT-OP-M Strength Start: 01/26/23 17:24 Freq: Status: Active Protocol: Document 05/02/23 14:30 DCW (Rec: 05/02/23 14:54 [facility] [id number]) Hip Strength Hip Manual Muscle Testing Right Flexion (L2) 3+ Fair+ Abduction 3+ Fair+ Adduction 4- Good- Left Flexion (L2) 3+ Fair+ Abduction 3+ Fair+ Adduction 4- Good- Knee Strength Knee Manual Muscle Testing Right Flexion (S2) 3+ Fair+ Extension (L3) 4+ Good+ Left Flexion (S2) 3+ Fair+ Extension (L3) 4+ Good+ PT-OP-Q Treatments Start: 01/26/23 17:24 Freq: Status: Active Protocol: Document 05/09/23 14:30 DCW (Rec: 05/09/23 15:13 DCW [id number]) Gym Equipment Cable Column (Body Solid) Rows Resistance 50# Reps/Time x50 Lat Pull Down Resistance 60# Reps/Time x50 Shuttle Recovery Unilateral Squats Details AFOs removed Resistance 62# (two new) Shuttle Recovery Platform Stable Reps/Time x20 each Bilateral Squats Details AFOs removed Resistance 112# (four new bands) Shuttle Recovery Platform Stable Reps/Time x50 Gait Training Gait Activity Steps Description Ascend/Descend 6 steps Device Used B rail Level of Assistance CGA Distance/Duration 3 steps x1, 2 steps x13 Comments Backs down steps for descent Neuro Re-Education Treatment Balance Activities Foam Stance Details Foam Stance Surface [employer] Equipment @ rail Static Balance Details Stride stance Equipment @ rail PT-OP-T Assessment and Plan Start: 01/26/23 17:24 Freq: Status: Active Protocol: Document 05/09/23 14:30 DCW (Rec: 05/09/23 15:13 DCW [id number]) Physical Therapy Assessment Impairments Impairments Activity Tolerance,Balance, Functional Activities, Functional Mobility,Gait,Pain, Posture,ROM,Strength,Tone, Transfers Goals Three Impairment Completes 5x Sit to marketing analytics lead 1 :51.03 Impairment 05/02/23: 1:20.90 Prison Goal (LTG) Pt to improve 5xStS score to < 60 seconds in order to display increased leg strength and improved transfer ability. LTG Duration 07/31/23 - Improving Two Impairment Pt ambulation limited to 142' in 3:20 using FWW. Impairment 05/02/23: 6MWT 410' Bus Inspector Goal (LTG) Pt to ambulate >800' during a 6 minute walk test to demonstrate improved activity tolerance and increased independent gait mobility LTG Duration 07/31/23 - Improving One Impairment Pt does not have an appropriate home exercise program Short Term Goal (STG) Pt to be independent and compliant with appropriate HEP STG Duration Met Assessment Summary Assessment Good balance challenges today, noted struggle with foam stance, required very minimal UE assistance for stability. Physical Therapy Plan Frequency and Duration Frequency of Treatment 2x/Week Plan of Care Start Date 05/02/23 Plan of Care End Date 07/31/23 Therapeutic Interventions Therapeutic Interventions Balance Training,Coordination Training,Home Exercise Program ,Joint Mobilizations,Manual Therapy,Neuromuscular Re- education,Patient/Caregiver Education,Self-Care/Home Management,Soft Tissue Mobilization,Therapeutic Activities,Therapeutic Exercises Next Visit Focus/Plan Next Note Type Treatment Note Next Visit Plan LE strength, shoulder mobility , activty tolerance, balance and gait training
--- NOTE | 2023-05-11 15:14 | PT.OTN ---
Current Diagnoses Morbid (severe) obesity due to excess calories (05/11/23) Other chronic pain (05/11/23) Dorsalgia, unspecified (05/11/23) Muscle weakness (generalized) (05/11/23) Pain in right toe(s) (05/11/23) Pain in left toe(s) (05/11/23) Other abnormalities of gait and mobility (05/11/23) Other symptoms and signs involving the musculoskeletal system (05/11/23) Chronic fatigue, unspecified (05/11/23) Other reduced mobility (05/11/23) Physical Therapy Treatment Note PT-OP-A Visit Information Start: 01/26/23 17:24 Freq: Status: Active Protocol: Document 05/11/23 14:30 DCW (Rec: 05/11/23 15:14 DCW [id number]) Out-Patient Physical Therapy Visit Information Visit Information Visit Type Treatment Note Visit Start Time 14:30 Visit Stop Time 15:15 Visit Number 20 Number of PAPER HANDLER Visits 0 Evaluation Information Evaluation Date 01/26/23 PT-OP-B Current Condition Start: 01/26/23 17:24 Freq: Status: Active Protocol: Document 01/26/23 14:00 DCW (Rec: 01/27/23 08:55 DCW [id number]) Current Condition History of Current Condition Onset Date February 2021 Current Complaints Weakness, poor balance, falls risk, physical debility History of Current Condition Pt is a 72 year old male presenting with a highly complex medical history. Pt is two years (February,) s/ p initial onset of health complications, which began with a severe bacterial respiratory infection. This resulted in a more than three month hospitalization, including requiring ventilation. Pt then discharged to a rehab facility for an additional four+ months, returning home in October. Pt begain outpatient physical therapy at this facility in December,, secondary to LE weakness, decreased mobility, fatigue, increased burden of care, inability to ambulate, bilateral foot drop, and R shoulder dysfunction, all seemingly stemming from illness and extended hospitalization. Pt has experienced additional health complications since beginning rehab initially, including a massive [place], which resulted in a pacemaker placement in June. At that time, only one lead was placed due to difficulty with the anatomy of cardiac arteries. After pacemaker was implanted, pt once again resumed PT, only to stop once again in order to have surgery at [facility] in January,, to place second pacemaker lead. Pt was recovering fairly well from surgery, however just last week, pt came to the ED with hypotension, and was once again transferred back down to [facility] from 01/16/23-01/20. Pt finally arrived back home one week ago, and has slowly been increasing activity level. Pt feeling better since lead placement, increased recovery and does not fatigue as quickly. Continues to primarily mobilize in a manual w/c, occasionally uses FWW for short distances around the home. Wears bilateral AFOs due to LE weakness/footdrop. Has difficulty with raising arms overhead bilaterally. Has been compliant recent with prior HEP, hoping to increase frequency or repetitions of exercises as tolerated. PT-OP-C Subjective Start: 01/26/23 17:24 Freq: Status: Active Protocol: Document 05/11/23 14:30 DCW (Rec: 05/11/23 15:14 DCW [id number]) OP-PT Subjective Patient Comments Patient Comments Pt notes his legs were quite fatigued following last session. PT-OP-E Functional Tests Start: 01/26/23 17:24 Freq: Status: Active Protocol: Document 05/02/23 14:30 DCW (Rec: 05/02/23 14:54 DCW [id number]) Functional Tests 6 Minute Walk Test Distance 410' Device Used FWW Comments 1.13 ft/sec Five Times Sit to Stand Test Score 1:20.90 Comments standing from w/c, wearing B AFO PT-OP-G Mobility & Gait Start: 01/27/23 08:55 Freq: Status: Active Protocol: Document 05/02/23 14:30 DCW (Rec: 05/02/23 14:54 DCW [id number]) OP Gait Assessment Gait Gait Assistance Required: Contact Guard Assist Distance (Feet) 410 Able to Maintain Weight Bearing Status Yes During Gait Assistive Devices Assistive Device Gait Belt,Front Wheeled Walker Orthotic/Prosthetic Devices or Brace: Yes Gait Deviations General Gait Pattern Antalgic,Decreased Stride Length,Decreased Feet Clearance,Flexed Trunk,Step-to Gait Factors Limiting Gait Function Factors Limiting Gait Function Decreased Activity Tolerance, Decreased Strength,Pain,Poor Balance PT-OP-K Range of Motion Start: 10/27/23 08:55 Freq: Status: Active Protocol: Document 05/02/23 14:30 DCW (Rec: 05/02/23 14:54 DCW [id number]) Shoulder Goniometric Range of Motion Shoulder Right Active Testing Position Sitting Flexion 114 Abduction 88 Left Active Testing Position Sitting Flexion 97 Abduction 90 PT-OP-M Strength Start: 01/26/23 17:24 Freq: Status: Active Protocol: Document 05/02/23 14:30 DCW (Rec: 05/02/23 14:54 DCW [id number]) Hip Strength Hip Manual Muscle Testing Right Flexion (L2) 3+ Fair+ Abduction 3+ Fair+ Adduction 4- Good- Left Flexion (L2) 3+ Fair+ Abduction 3+ Fair+ Adduction 4- Good- Knee Strength Knee Manual Muscle Testing Right Flexion (S2) 3+ Fair+ Extension (L3) 4+ Good+ Left Flexion (S2) 3+ Fair+ Extension (L3) 4+ Good+ PT-OP-Q Treatments Start: 01/26/23 17:24 Freq: Status: Active Protocol: Document 05/11/23 14:30 DCW (Rec: 05/11/23 15:14 DCW [id number]) Gym Equipment Cable Column (Body Solid) Reverse Fly Details Cable column at chest height Resistance 35# Reps/Time x35 Triceps Details Triceps press Resistance 25# Reps/Time x10 Rows Resistance 50# Reps/Time x50 Biceps Curl Details Cable column in lowest position Resistance 15# Reps/Time x20 Lat Pull Down Resistance 60# Reps/Time x45 Shuttle Recovery Unilateral Squats Details AFOs removed Resistance 75# (one new) Shuttle Recovery Platform Stable Reps/Time 2x10 each Bilateral Squats Details AFOs removed Resistance 125# (three new bands) Shuttle Recovery Platform Stable Reps/Time x25 Gait Training Gait Activity Steps Description Ascend/Descend 6 steps Device Used B rail Level of Assistance CGA Distance/Duration 3 steps x1, 2 steps x15 Comments Backs down steps for descent PT-OP-T Assessment and Plan Start: 01/26/23 17:24 Freq: Status: Active Protocol: Document 05/11/23 14:30 DCW (Rec: 05/11/23 15:14 DCW [id number]) Physical Therapy Assessment Impairments Impairments Activity Tolerance,Balance, Functional Activities, Functional Mobility,Gait,Pain, Posture,ROM,Strength,Tone, Transfers Goals Three Impairment Completes 5x Sit to machine wiper 1 :51.03 Impairment 05/02/23: 1:20.90 Machinist Supervisor Goal (LTG) Pt to improve 5xStS score to < 60 seconds in order to display increased leg strength and improved transfer ability. LTG Duration 07/31/23 - Improving Two Impairment Pt ambulation limited to 142' in 3:20 using FWW. Impairment 05/02/23: 6MWT 410' Fdc Goal (LTG) Pt to ambulate >800' during a 6 minute walk test to demonstrate improved activity tolerance and increased independent gait mobility LTG Duration 07/31/23 - Improving One Impairment Pt does not have an appropriate home exercise program Short Term Goal (STG) Pt to be independent and compliant with appropriate HEP STG Duration Met Assessment Summary Assessment Able to tolerate increases in resistance with some exercises , doing much better with controlled descent when sitting and showing improved tolerance to activity. Physical Therapy Plan Frequency and Duration Frequency of Treatment 2x/Week Plan of Care Start Date 05/02/23 Plan of Care End Date 07/31/23 Therapeutic Interventions Therapeutic Interventions Balance Training,Coordination Training,Home Exercise Program ,Joint Mobilizations,Manual Therapy,Neuromuscular Re- education,Patient/Caregiver Education,Self-Care/Home Management,Soft Tissue Mobilization,Therapeutic Activities,Therapeutic Exercises Next Visit Focus/Plan Next Note Type Treatment Note Next Visit Plan LE strength, shoulder mobility , activty tolerance, balance and gait training
--- NOTE | 2023-05-16 15:16 | PT.OTN ---
Current Diagnoses Morbid (severe) obesity due to excess calories (05/16/23) Other chronic pain (05/16/23) Dorsalgia, unspecified (05/16/23) Muscle weakness (generalized) (05/16/23) Pain in right toe(s) (05/16/23) Pain in left toe(s) (05/16/23) Other abnormalities of gait and mobility (05/16/23) Other symptoms and signs involving the musculoskeletal system (05/16/23) Chronic fatigue, unspecified (05/16/23) Other reduced mobility (05/16/23) Physical Therapy Treatment Note PT-OP-A Visit Information Start: 01/26/23 17:24 Freq: Status: Active Protocol: Document 05/16/23 14:30 DCW (Rec: 05/16/23 15:15 DCW [id number]) Out-Patient Physical Therapy Visit Information Visit Information Visit Type Treatment Note Visit Start Time 14:30 Visit Stop Time 15:15 Visit Number 21 Number of PROSTHETIC DENTIST Visits 0 Evaluation Information Evaluation Date 01/26/23 PT-OP-B Current Condition Start: 01/26/23 17:24 Freq: Status: Active Protocol: Document 01/26/23 14:00 DCW (Rec: 01/27/23 08:55 DCW [id number]) Current Condition History of Current Condition Onset Date February 2021 Current Complaints Weakness, poor balance, falls risk, physical debility History of Current Condition Pt is a 72 year old male presenting with a highly complex medical history. Pt is two years (February,) s/ p initial onset of health complications, which began with a severe bacterial respiratory infection. This resulted in a more than three month hospitalization, including requiring ventilation. Pt then discharged to a rehab facility for an additional four+ months, returning home in October. Pt begain outpatient physical therapy at this facility in December,, secondary to LE weakness, decreased mobility, fatigue, increased burden of care, inability to ambulate, bilateral foot drop, and R shoulder dysfunction, all seemingly stemming from illness and extended hospitalization. Pt has experienced additional health complications since beginning rehab initially, including a massive [place], which resulted in a pacemaker placement in June. At that time, only one lead was placed due to difficulty with the anatomy of cardiac arteries. After pacemaker was implanted, pt once again resumed PT, only to stop once again in order to have surgery at [facility] in January,, to place second pacemaker lead. Pt was recovering fairly well from surgery, however just last week, pt came to the ED with hypotension, and was once again transferred back down to [facility] from 01/16/23-01/20. Pt finally arrived back home one week ago, and has slowly been increasing activity level. Pt feeling better since lead placement, increased recovery and does not fatigue as quickly. Continues to primarily mobilize in a manual w/c, occasionally uses FWW for short distances around the home. Wears bilateral AFOs due to LE weakness/footdrop. Has difficulty with raising arms overhead bilaterally. Has been compliant recent with prior HEP, hoping to increase frequency or repetitions of exercises as tolerated. PT-OP-C Subjective Start: 01/26/23 17:24 Freq: Status: Active Protocol: Document 05/16/23 14:30 DCW (Rec: 05/16/23 15:15 DCW [id number]) OP-PT Subjective Patient Comments Patient Comments Poor night of sleep due to neuropathy PT-OP-E Functional Tests Start: 01/26/23 17:24 Freq: Status: Active Protocol: Document 05/02/23 14:30 DCW (Rec: 05/02/23 14:54 DCW [id number]) Functional Tests 6 Minute Walk Test Distance 410' Device Used FWW Comments 1.13 ft/sec Five Times Sit to Stand Test Score 1:20.90 Comments standing from w/c, wearing B AFO PT-OP-G Mobility & Gait Start: 01/27/23 08:55 Freq: Status: Active Protocol: Document 05/02/23 14:30 DCW (Rec: 05/02/23 14:54 DCW [id number]) OP Gait Assessment Gait Gait Assistance Required: Contact Guard Assist Distance (Feet) 410 Able to Maintain Weight Bearing Status Yes During Gait Assistive Devices Assistive Device Gait Belt,Front Wheeled Walker Orthotic/Prosthetic Devices or Brace: Yes Gait Deviations General Gait Pattern Antalgic,Decreased Stride Length,Decreased Feet Clearance,Flexed Trunk,Step-to Gait Factors Limiting Gait Function Factors Limiting Gait Function Decreased Activity Tolerance, Decreased Strength,Pain,Poor Balance PT-OP-K Range of Motion Start: 01/27/23 08:55 Freq: Status: Active Protocol: Document 05/02/23 14:30 DCW (Rec: 05/02/23 14:54 DCW [id number]) Shoulder Goniometric Range of Motion Shoulder Right Active Testing Position Sitting Flexion 114 Abduction 88 Left Active Testing Position Sitting Flexion 97 Abduction 90 PT-OP-M Strength Start: 01/26/23 17:24 Freq: Status: Active Protocol: Document 05/02/23 14:30 DCW (Rec: 05/02/23 14:54 DCW [id number]) Hip Strength Hip Manual Muscle Testing Right Flexion (L2) 3+ Fair+ Abduction 3+ Fair+ Adduction 4- Good- Left Flexion (L2) 3+ Fair+ Abduction 3+ Fair+ Adduction 4- Good- Knee Strength Knee Manual Muscle Testing Right Flexion (S2) 3+ Fair+ Extension (L3) 4+ Good+ Left Flexion (S2) 3+ Fair+ Extension (L3) 4+ Good+ PT-OP-Q Treatments Start: 01/26/23 17:24 Freq: Status: Active Protocol: Document 05/16/23 14:30 DCW (Rec: 05/16/23 15:15 DCW [id number]) Gym Equipment Cable Column (Body Solid) Horizontal Adduction Details Cable column at chest height Resistance 25# Reps/Time x35 Reverse Fly Details Cable column at chest height Resistance 35# Reps/Time x50 Triceps Details Triceps press Resistance 25# Reps/Time x30 Rows Resistance 50# Reps/Time x50 Biceps Curl Details Cable column in lowest position Resistance 20# Reps/Time x20 Lat Pull Down Resistance 60# Reps/Time x50 Shuttle Recovery Unilateral Squats Details AFOs removed Resistance 75# (one new) Shuttle Recovery Platform Stable Reps/Time x20 each Bilateral Squats Details AFOs removed Resistance 125# (four new bands) Shuttle Recovery Platform Stable Reps/Time x50 Gait Training Gait Activity Steps Description Ascend/Descend 6 steps Device Used B rail Level of Assistance CGA Distance/Duration 3 steps x1, 2 steps x17 Comments Backs down steps for descent PT-OP-T Assessment and Plan Start: 01/26/23 17:24 Freq: Status: Active Protocol: Document 05/16/23 14:30 DCW (Rec: 05/16/23 15:15 DCW [id number]) Physical Therapy Assessment Impairments Impairments Activity Tolerance,Balance, Functional Activities, Functional Mobility,Gait,Pain, Posture,ROM,Strength,Tone, Transfers Goals Three Impairment Completes 5x Sit to dialysis clinical manager 1 :51.03 Impairment 05/02/23: 1:20.90 Senior Living Goal (LTG) Pt to improve 5xStS score to < 60 seconds in order to display increased leg strength and improved transfer ability. LTG Duration 07/31/23 - Improving Two Impairment Pt ambulation limited to 142' in 3:20 using FWW. Impairment 05/02/23: 6MWT 410' Senior Living Goal (LTG) Pt to ambulate >800' during a 6 minute walk test to demonstrate improved activity tolerance and increased independent gait mobility LTG Duration 07/31/23 - Improving One Impairment Pt does not have an appropriate home exercise program Short Term Goal (STG) Pt to be independent and compliant with appropriate HEP STG Duration Met Assessment Summary Assessment Even with increased resistance on most activities, pt able to increase reps, demonstrating increased activity tolerance. Good response to treatment today. Physical Therapy Plan Frequency and Duration Frequency of Treatment 2x/Week Plan of Care Start Date 05/02/23 Plan of Care End Date 07/31/23 Therapeutic Interventions Therapeutic Interventions Balance Training,Coordination Training,Home Exercise Program ,Joint Mobilizations,Manual Therapy,Neuromuscular Re- education,Patient/Caregiver Education,Self-Care/Home Management,Soft Tissue Mobilization,Therapeutic Activities,Therapeutic Exercises Next Visit Focus/Plan Next Note Type Treatment Note Next Visit Plan LE strength, shoulder mobility , activty tolerance, balance and gait training
--- NOTE | 2023-05-19 15:14 | PT.OTN ---
Current Diagnoses Morbid (severe) obesity due to excess calories (05/19/23) Other chronic pain (05/19/23) Dorsalgia, unspecified (05/19/23) Muscle weakness (generalized) (05/19/23) Pain in right toe(s) (05/19/23) Pain in left toe(s) (05/19/23) Other abnormalities of gait and mobility (05/19/23) Other symptoms and signs involving the musculoskeletal system (05/19/23) Chronic fatigue, unspecified (05/19/23) Other reduced mobility (05/19/23) Physical Therapy Treatment Note PT-OP-A Visit Information Start: 01/26/23 17:24 Freq: Status: Active Protocol: Document 05/19/23 14:30 DCW (Rec: 05/19/23 15:14 DCW [id number]) Out-Patient Physical Therapy Visit Information Visit Information Visit Type Treatment Note Visit Start Time 14:30 Visit Stop Time 15:15 Visit Number 22 Number of SOFTWARE SUPPORT ANALYST Visits 0 Evaluation Information Evaluation Date 01/26/23 PT-OP-B Current Condition Start: 01/26/23 17:24 Freq: Status: Active Protocol: Document 01/26/23 14:00 DCW (Rec: 01/27/23 08:55 DCW [id number]) Current Condition History of Current Condition Onset Date February 2021 Current Complaints Weakness, poor balance, falls risk, physical debility History of Current Condition Pt is a 72 year old male presenting with a highly complex medical history. Pt is two years (February,) s/ p initial onset of health complications, which began with a severe bacterial respiratory infection. This resulted in a more than three month hospitalization, including requiring ventilation. Pt then discharged to a rehab facility for an additional four+ months, returning home in October. Pt begain outpatient physical therapy at this facility in December,, secondary to LE weakness, decreased mobility, fatigue, increased burden of care, inability to ambulate, bilateral foot drop, and R shoulder dysfunction, all seemingly stemming from illness and extended hospitalization. Pt has experienced additional health complications since beginning rehab initially, including a massive [place], which resulted in a pacemaker placement in June. At that time, only one lead was placed due to difficulty with the anatomy of cardiac arteries. After pacemaker was implanted, pt once again resumed PT, only to stop once again in order to have surgery at [facility] in January,, to place second pacemaker lead. Pt was recovering fairly well from surgery, however just last week, pt came to the ED with hypotension, and was once again transferred back down to [facility] from 01/16/23-01/20. Pt finally arrived back home one week ago, and has slowly been increasing activity level. Pt feeling better since lead placement, increased recovery and does not fatigue as quickly. Continues to primarily mobilize in a manual w/c, occasionally uses FWW for short distances around the home. Wears bilateral AFOs due to LE weakness/footdrop. Has difficulty with raising arms overhead bilaterally. Has been compliant recent with prior HEP, hoping to increase frequency or repetitions of exercises as tolerated. PT-OP-C Subjective Start: 01/26/23 17:24 Freq: Status: Active Protocol: Document 05/19/23 14:30 DCW (Rec: 05/19/23 15:14 DCW [id number]) OP-PT Subjective Patient Comments Patient Comments I need a light workout day. After that test (EMG) yesterday, my legs were on fire all night. I barely got any sleep. PT-OP-E Functional Tests Start: 01/26/23 17:24 Freq: Status: Active Protocol: Document 05/02/23 14:30 DCW (Rec: 05/02/23 14:54 DCW [id number]) Functional Tests 6 Minute Walk Test Distance 410' Device Used FWW Comments 1.13 ft/sec Five Times Sit to Stand Test Score 1:20.90 Comments standing from w/c, wearing B AFO PT-OP-G Mobility & Gait Start: 01/27/23 08:55 Freq: Status: Active Protocol: Document 05/02/23 14:30 DCW (Rec: 05/02/23 14:54 DCW [id number]) OP Gait Assessment Gait Gait Assistance Required: Contact Guard Assist Distance (Feet) 410 Able to Maintain Weight Bearing Status Yes During Gait Assistive Devices Assistive Device Gait Belt,Front Wheeled Walker Orthotic/Prosthetic Devices or Brace: Yes Gait Deviations General Gait Pattern Antalgic,Decreased Stride Length,Decreased Feet Clearance,Flexed Trunk,Step-to Gait Factors Limiting Gait Function Factors Limiting Gait Function Decreased Activity Tolerance, Decreased Strength,Pain,Poor Balance PT-OP-K Range of Motion Start: 01/27/23 08:55 Freq: Status: Active Protocol: Document 05/02/23 14:30 DCW (Rec: 05/02/23 14:54 DCW [id number]) Shoulder Goniometric Range of Motion Shoulder Right Active Testing Position Sitting Flexion 114 Abduction 88 Left Active Testing Position Sitting Flexion 97 Abduction 90 PT-OP-M Strength Start: 01/26/23 17:24 Freq: Status: Active Protocol: Document 05/02/23 14:30 DCW (Rec: 05/02/23 14:54 DCW [id number]) Hip Strength Hip Manual Muscle Testing Right Flexion (L2) 3+ Fair+ Abduction 3+ Fair+ Adduction 4- Good- Left Flexion (L2) 3+ Fair+ Abduction 3+ Fair+ Adduction 4- Good- Knee Strength Knee Manual Muscle Testing Right Flexion (S2) 3+ Fair+ Extension (L3) 4+ Good+ Left Flexion (S2) 3+ Fair+ Extension (L3) 4+ Good+ PT-OP-Q Treatments Start: 01/26/23 17:24 Freq: Status: Active Protocol: Document 05/19/23 14:30 DCW (Rec: 05/19/23 15:14 DCW [id number]) Gym Equipment Cable Column (Body Solid) Reverse Fly Details Cable column at chest height Resistance 25# Reps/Time x50 Triceps Details Triceps press Resistance 25# Reps/Time x30 Rows Resistance 40# Reps/Time x50 Biceps Curl Details Cable column in lowest position Resistance 15# Reps/Time x20 Lat Pull Down Resistance 50# Reps/Time x50 Shuttle Recovery Unilateral Squats Details AFOs removed Resistance 50# (two new) Shuttle Recovery Platform Stable Reps/Time x20 each Bilateral Squats Details AFOs removed Resistance 100# (three new bands) Shuttle Recovery Platform Stable Reps/Time x50 Gait Training Gait Activity Steps Description Ascend/Descend 4 steps Device Used B rail Level of Assistance CGA Distance/Duration 5 steps x1 Comments Backs down steps for descent PT-OP-T Assessment and Plan Start: 01/26/23 17:24 Freq: Status: Active Protocol: Document 05/19/23 14:30 DCW (Rec: 05/19/23 15:14 DCW [id number]) Physical Therapy Assessment Impairments Impairments Activity Tolerance,Balance, Functional Activities, Functional Mobility,Gait,Pain, Posture,ROM,Strength,Tone, Transfers Goals Three Impairment Completes 5x Sit to licensing engineer 1 :51.03 Impairment 05/02/23: 1:20.90 Prison Goal (LTG) Pt to improve 5xStS score to < 60 seconds in order to display increased leg strength and improved transfer ability. LTG Duration 07/31/23 - Improving Two Impairment Pt ambulation limited to 142' in 3:20 using FWW. Impairment 05/02/23: 6MWT 410' Prison Goal (LTG) Pt to ambulate >800' during a 6 minute walk test to demonstrate improved activity tolerance and increased independent gait mobility LTG Duration 07/31/23 - Improving One Impairment Pt does not have an appropriate home exercise program Short Term Goal (STG) Pt to be independent and compliant with appropriate HEP STG Duration Met Assessment Summary Assessment Stepped-back most resistance today due to pt's extreme fatigue following EMG yesterday. Even with return to 4 step from 6 step, pt only able to complete one set of stairs. Decreased resistance for leg press was still equally challenging. Physical Therapy Plan Frequency and Duration Frequency of Treatment 2x/Week Plan of Care Start Date 05/02/23 Plan of Care End Date 07/31/23 Therapeutic Interventions Therapeutic Interventions Balance Training,Coordination Training,Home Exercise Program ,Joint Mobilizations,Manual Therapy,Neuromuscular Re- education,Patient/Caregiver Education,Self-Care/Home Management,Soft Tissue Mobilization,Therapeutic Activities,Therapeutic Exercises Next Visit Focus/Plan Next Note Type Treatment Note Next Visit Plan LE strength, shoulder mobility , activty tolerance, balance and gait training
--- NOTE | 2023-05-23 15:15 | PT.OTN ---
Current Diagnoses Morbid (severe) obesity due to excess calories (05/23/23) Other chronic pain (05/23/23) Dorsalgia, unspecified (05/23/23) Muscle weakness (generalized) (05/23/23) Pain in right toe(s) (05/23/23) Pain in left toe(s) (05/23/23) Other abnormalities of gait and mobility (05/23/23) Other symptoms and signs involving the musculoskeletal system (05/23/23) Chronic fatigue, unspecified (05/23/23) Other reduced mobility (05/23/23) Physical Therapy Treatment Note PT-OP-A Visit Information Start: 01/26/23 17:24 Freq: Status: Active Protocol: Document 05/23/23 14:30 DCW (Rec: 05/23/23 15:15 DCW [id number]) Out-Patient Physical Therapy Visit Information Visit Information Visit Type Treatment Note Visit Start Time 14:30 Visit Stop Time 15:15 Visit Number 23 Number of WALLET ASSEMBLER Visits 0 Evaluation Information Evaluation Date 01/26/23 PT-OP-B Current Condition Start: 01/26/23 17:24 Freq: Status: Active Protocol: Document 01/26/23 14:00 DCW (Rec: 01/27/23 08:55 DCW [id number]) Current Condition History of Current Condition Onset Date February 2021 Current Complaints Weakness, poor balance, falls risk, physical debility History of Current Condition Pt is a 72 year old male presenting with a highly complex medical history. Pt is two years (February,) s/ p initial onset of health complications, which began with a severe bacterial respiratory infection. This resulted in a more than three month hospitalization, including requiring ventilation. Pt then discharged to a rehab facility for an additional four+ months, returning home in October. Pt begain outpatient physical therapy at this facility in December,, secondary to LE weakness, decreased mobility, fatigue, increased burden of care, inability to ambulate, bilateral foot drop, and R shoulder dysfunction, all seemingly stemming from illness and extended hospitalization. 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 At that time, only one lead was placed due to difficulty with the anatomy of cardiac arteries. After pacemaker was implanted, pt once again resumed PT, only to stop once again in order to have surgery at [facility] in January,, to place second pacemaker lead. Pt was recovering fairly well from surgery, however just last week, pt came to the ED with hypotension, and was once again transferred back down to [facility] from 01/16/23-01/20. Pt finally arrived back home one week ago, and has slowly been increasing activity level. Pt feeling better since lead placement, increased recovery and does not fatigue as quickly. Continues to primarily mobilize in a manual w/c, occasionally uses FWW for short distances around the home. Wears bilateral AFOs due to LE weakness/footdrop. Has difficulty with raising arms overhead bilaterally. Has been compliant recent with prior HEP, hoping to increase frequency or repetitions of exercises as tolerated. PT-OP-C Subjective Start: 01/26/23 17:24 Freq: Status: Active Protocol: Document 05/23/23 14:30 DCW (Rec: 05/23/23 15:15 DCW [id number]) OP-PT Subjective Patient Comments Patient Comments Notes knee is throbbing because he's not allowed to take any meds due to upcoming TING. PT-OP-E Functional Tests Start: 01/26/23 17:24 Freq: Status: Active Protocol: Document 05/02/23 14:30 DCW (Rec: 05/02/23 14:54 DCW [id number]) Functional Tests 6 Minute Walk Test Distance 410' Device Used FWW Comments 1.13 ft/sec Five Times Sit to Stand Test Score 1:20.90 Comments standing from w/c, wearing B AFO PT-OP-G Mobility & Gait Start: 01/27/23 08:55 Freq: Status: Active Protocol: Document 05/02/23 14:30 DCW (Rec: 05/02/23 14:54 DCW [id number]) OP Gait Assessment Gait Gait Assistance Required: Contact Guard Assist Distance (Feet) 410 Able to Maintain Weight Bearing Status Yes During Gait Assistive Devices Assistive Device Gait Belt,Front Wheeled Walker Orthotic/Prosthetic Devices or Brace: Yes Gait Deviations General Gait Pattern Antalgic,Decreased Stride Length,Decreased Feet Clearance,Flexed Trunk,Step-to Gait Factors Limiting Gait Function Factors Limiting Gait Function Decreased Activity Tolerance, Decreased Strength,Pain,Poor Balance PT-OP-K Range of Motion Start: 01/27/23 08:55 Freq: Status: Active Protocol: Document 05/02/23 14:30 DCW (Rec: 05/02/23 14:54 DCW [id number]) Shoulder Goniometric Range of Motion Shoulder Right Active Testing Position Sitting Flexion 114 Abduction 88 Left Active Testing Position Sitting Flexion 97 Abduction 90 PT-OP-M Strength Start: 01/26/23 17:24 Freq: Status: Active Protocol: Document 05/02/23 14:30 DCW (Rec: 05/02/23 14:54 DCW [id number]) Hip Strength Hip Manual Muscle Testing Right Flexion (L2) 3+ Fair+ Abduction 3+ Fair+ Adduction 4- Good- Left Flexion (L2) 3+ Fair+ Abduction 3+ Fair+ Adduction 4- Good- Knee Strength Knee Manual Muscle Testing Right Flexion (S2) 3+ Fair+ Extension (L3) 4+ Good+ Left Flexion (S2) 3+ Fair+ Extension (L3) 4+ Good+ PT-OP-Q Treatments Start: 01/26/23 17:24 Freq: Status: Active Protocol: Document 05/23/23 14:30 DCW (Rec: 05/23/23 15:15 DCW [id number]) Gym Equipment Cable Column (Body Solid) Triceps Details Triceps press Resistance 25# Reps/Time x30 Rows Resistance 50# Reps/Time x50 Biceps Curl Details Cable column in lowest position Resistance 15# Reps/Time x20 Lat Pull Down Resistance 60# Reps/Time x50 Shuttle Recovery Unilateral Squats Details AFOs removed Resistance 62# (one new) Shuttle Recovery Platform Stable Reps/Time x30 each Bilateral Squats Details AFOs removed Resistance 125# (four new bands) Shuttle Recovery Platform Stable Reps/Time x50 Gait Training Gait Activity Steps Description Ascend/Descend 6 steps Device Used B rail Level of Assistance CGA Distance/Duration 3 steps x1, 2 steps x18 Comments Backs down steps for descent PT-OP-T Assessment and Plan Start: 01/26/23 17:24 Freq: Status: Active Protocol: Document 05/23/23 14:30 DCW (Rec: 05/23/23 15:15 DCW [id number]) Physical Therapy Assessment Impairments Impairments Activity Tolerance,Balance, Functional Activities, Functional Mobility,Gait,Pain, Posture,ROM,Strength,Tone, Transfers Goals Three Impairment Completes 5x 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 LTG Duration 07/31/23 - Improving Two Impairment Pt ambulation limited to 142' in 3:20 using FWW. Impairment 05/02/23: 6MWT 410' Gluing Machine Adjuster Goal (LTG) Pt to ambulate >800' during a 6 minute walk test to demonstrate improved activity tolerance and increased independent gait mobility LTG Duration 07/31/23 - Improving One Impairment Pt does not have an appropriate home exercise program Short Term Goal (STG) Pt to be independent and compliant with appropriate HEP STG Duration Met Assessment Summary Assessment Return to usual function following set-back last week after EMG. Tolerated strengthening as expected. Physical Therapy Plan Frequency and Duration Frequency of Treatment 2x/Week Plan of Care Start Date 05/02/23 Plan of Care End Date 07/31/23 Therapeutic Interventions Therapeutic Interventions Balance Training,Coordination Training,Home Exercise Program ,Joint Mobilizations,Manual Therapy,Neuromuscular Re- education,Patient/Caregiver Education,Self-Care/Home Management,Soft Tissue Mobilization,Therapeutic Activities,Therapeutic Exercises Next Visit Focus/Plan Next Note Type Treatment Note Next Visit Plan LE strength, shoulder mobility , activty tolerance, balance and gait training
--- NOTE | 2023-05-30 15:14 | PT.OTN ---
Current Diagnoses Morbid (severe) obesity due to excess calories (05/30/23) Other chronic pain (05/30/23) Dorsalgia, unspecified (05/30/23) Muscle weakness (generalized) (05/30/23) Pain in right toe(s) (05/30/23) Pain in left toe(s) (05/30/23) Other abnormalities of gait and mobility (05/30/23) Other symptoms and signs involving the musculoskeletal system (05/30/23) Chronic fatigue, unspecified (05/30/23) Other reduced mobility (05/30/23) Physical Therapy Treatment Note PT-OP-A Visit Information Start: 01/26/23 17:24 Freq: Status: Active Protocol: Document 05/30/23 14:30 DCW (Rec: 05/30/23 15:14 DCW [id number]) Out-Patient Physical Therapy Visit Information Visit Information Visit Type Treatment Note Visit Start Time 14:30 Visit Stop Time 15:15 Visit Number 24 Number of CERTIFIED INDOOR ENVIRONMENTALIST Visits 0 Evaluation Information Evaluation Date 01/26/23 PT-OP-B Current Condition Start: 01/26/23 17:24 Freq: Status: Active Protocol: Document 01/26/23 14:00 DCW (Rec: 01/27/23 08:55 DCW [id number]) Current Condition History of Current Condition Onset Date February 2021 Current Complaints Weakness, poor balance, falls risk, physical debility History of Current Condition Pt is a 72 year old male presenting with a highly complex medical history. Pt is two years (February,) s/ p initial onset of health complications, which began with a severe bacterial respiratory infection. This resulted in a more than three month hospitalization, including requiring ventilation. Pt then discharged to a rehab facility for an additional four+ months, returning home in October. Pt begain outpatient physical therapy at this facility in December,, secondary to LE weakness, decreased mobility, fatigue, increased burden of care, inability to ambulate, bilateral foot drop, and R shoulder dysfunction, all seemingly stemming from illness and extended hospitalization. 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 At that time, only one lead was placed due to difficulty with the anatomy of cardiac arteries. After pacemaker was implanted, pt once again resumed PT, only to stop once again in order to have surgery at [facility] in January,, to place second pacemaker lead. Pt was recovering fairly well from surgery, however just last week, pt came to the ED with hypotension, and was once again transferred back down to [facility] from 01/16/23-01/20. Pt finally arrived back home one week ago, and has slowly been increasing activity level. Pt feeling better since lead placement, increased recovery and does not fatigue as quickly. Continues to primarily mobilize in a manual w/c, occasionally uses FWW for short distances around the home. Wears bilateral AFOs due to LE weakness/footdrop. Has difficulty with raising arms overhead bilaterally. Has been compliant recent with prior HEP, hoping to increase frequency or repetitions of exercises as tolerated. PT-OP-C Subjective Start: 01/26/23 17:24 Freq: Status: Active Protocol: Document 05/30/23 14:30 DCW (Rec: 05/30/23 15:14 DCW [id number]) OP-PT Subjective Patient Comments Patient Comments Pt underwent his Trans- Esophagel Echo last week, has not been able to discuss it yet with his duralumin mechanic, but apparently the valve is in worse shape than they expected . PT-OP-E Functional Tests Start: 01/26/23 17:24 Freq: Status: Active Protocol: Document 05/02/23 14:30 DCW (Rec: 05/02/23 14:54 DCW [id number]) Functional Tests 6 Minute Walk Test Distance 410' Device Used FWW Comments 1.13 ft/sec Five Times Sit to Stand Test Score 1:20.90 Comments standing from w/c, wearing B AFO PT-OP-G Mobility & Gait Start: 01/27/23 08:55 Freq: Status: Active Protocol: Document 05/02/23 14:30 DCW (Rec: 05/02/23 14:54 DCW [id number]) OP Gait Assessment Gait Gait Assistance Required: Contact Guard Assist Distance (Feet) 410 Able to Maintain Weight Bearing Status Yes During Gait Assistive Devices Assistive Device Gait Belt,Front Wheeled Walker Orthotic/Prosthetic Devices or Brace: Yes Gait Deviations General Gait Pattern Antalgic,Decreased Stride Length,Decreased Feet Clearance,Flexed Trunk,Step-to Gait Factors Limiting Gait Function Factors Limiting Gait Function Decreased Activity Tolerance, Decreased Strength,Pain,Poor Balance PT-OP-K Range of Motion Start: 01/27/23 08:55 Freq: Status: Active Protocol: Document 05/02/23 14:30 DCW (Rec: 05/02/23 14:54 DCW [id number]) Shoulder Goniometric Range of Motion Shoulder Right Active Testing Position Sitting Flexion 114 Abduction 88 Left Active Testing Position Sitting Flexion 97 Abduction 90 PT-OP-M Strength Start: 01/26/23 17:24 Freq: Status: Active Protocol: Document 05/02/23 14:30 DCW (Rec: 05/02/23 14:54 DCW [id number]) Hip Strength Hip Manual Muscle Testing Right Flexion (L2) 3+ Fair+ Abduction 3+ Fair+ Adduction 4- Good- Left Flexion (L2) 3+ Fair+ Abduction 3+ Fair+ Adduction 4- Good- Knee Strength Knee Manual Muscle Testing Right Flexion (S2) 3+ Fair+ Extension (L3) 4+ Good+ Left Flexion (S2) 3+ Fair+ Extension (L3) 4+ Good+ PT-OP-Q Treatments Start: 01/26/23 17:24 Freq: Status: Active Protocol: Document 05/30/23 14:30 DCW (Rec: 05/30/23 15:14 DCW [id number]) Gym Equipment Cable Column (Body Solid) Rows Resistance 50# Reps/Time x50 Biceps Curl Details Cable column in lowest position Resistance 15# Reps/Time x25 Lat Pull Down Resistance 60# Reps/Time x50 Shuttle Recovery Unilateral Squats Details AFOs removed Resistance 62# (one new) Shuttle Recovery Platform Stable Reps/Time Lx13,x12 ; Rx4,x19 Bilateral Squats Details AFOs removed Resistance 125# (four new bands) Shuttle Recovery Platform Stable Reps/Time x50 Gait Training Gait Activity Steps Description Ascend/Descend 6 steps Device Used B rail Level of Assistance CGA Distance/Duration 3 steps x1, 2 steps x19 Comments Backs down steps for descent PT-OP-T Assessment and Plan Start: 01/26/23 17:24 Freq: Status: Active Protocol: Document 05/30/23 14:30 DCW (Rec: 05/30/23 15:14 DCW [id number]) Physical Therapy Assessment Impairments Impairments Activity Tolerance,Balance, Functional Activities, Functional Mobility,Gait,Pain, Posture,ROM,Strength,Tone, Transfers Goals Three Impairment Completes 5x 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 LTG Duration 07/31/23 - Improving Two Impairment Pt ambulation limited to 142' in 3:20 using FWW. Impairment 05/02/23: 6MWT 410' Assisted Goal (LTG) Pt to ambulate >800' during a 6 minute walk test to demonstrate improved activity tolerance and increased independent gait mobility LTG Duration 07/31/23 - Improving One Impairment Pt does not have an appropriate home exercise program Short Term Goal (STG) Pt to be independent and compliant with appropriate HEP STG Duration Met Assessment Summary Assessment Pt noted increased fatigue today, but exercise tolerance largely in line with prior performance. Physical Therapy Plan Frequency and Duration Frequency of Treatment 2x/Week Plan of Care Start Date 05/02/23 Plan of Care End Date 07/31/23 Therapeutic Interventions Therapeutic Interventions Balance Training,Coordination Training,Home Exercise Program ,Joint Mobilizations,Manual Therapy,Neuromuscular Re- education,Patient/Caregiver Education,Self-Care/Home Management,Soft Tissue Mobilization,Therapeutic Activities,Therapeutic Exercises Next Visit Focus/Plan Next Note Type Treatment Note Next Visit Plan LE strength, shoulder mobility , activty tolerance, balance and gait training
--- NOTE | 2023-06-01 15:10 | PT.OTN ---
Current Diagnoses Morbid (severe) obesity due to excess calories (06/01/23) Other chronic pain (06/01/23) Dorsalgia, unspecified (06/01/23) Muscle weakness (generalized) (06/01/23) Pain in right toe(s) (06/01/23) Pain in left toe(s) (06/01/23) Other abnormalities of gait and mobility (06/01/23) Other symptoms and signs involving the musculoskeletal system (06/01/23) Chronic fatigue, unspecified (06/01/23) Other reduced mobility (06/01/23) Physical Therapy Treatment Note PT-OP-A Visit Information Start: 01/26/23 17:24 Freq: Status: Active Protocol: Document 06/01/23 14:30 DCW (Rec: 06/01/23 15:10 DCW [id number]) Out-Patient Physical Therapy Visit Information Visit Information Visit Type Treatment Note Visit Start Time 14:30 Visit Stop Time 15:15 Visit Number 24 Number of BUFFING MACHINE TENDER Visits 0 Evaluation Information Evaluation Date 01/26/23 PT-OP-B Current Condition Start: 01/26/23 17:24 Freq: Status: Active Protocol: Document 01/26/23 14:00 DCW (Rec: 01/27/23 08:55 DCW [id number]) Current Condition History of Current Condition Onset Date February 2021 Current Complaints Weakness, poor balance, falls risk, physical debility History of Current Condition Pt is a 72 year old male presenting with a highly complex medical history. Pt is two years (February,) s/ p initial onset of health complications, which began with a severe bacterial respiratory infection. This resulted in a more than three month hospitalization, including requiring ventilation. Pt then discharged to a rehab facility for an additional four+ months, returning home in October. Pt begain outpatient physical therapy at this facility in December,, secondary to LE weakness, decreased mobility, fatigue, increased burden of care, inability to ambulate, bilateral foot drop, and R shoulder dysfunction, all seemingly stemming from illness and extended hospitalization. Pt has experienced additional health complications since beginning rehab initially, including a massive [place], which resulted in a pacemaker placement in June. At that time, only one lead was placed due to difficulty with the anatomy of cardiac arteries. After pacemaker was implanted, pt once again resumed PT, only to stop once again in order to have surgery at [facility] in January,, to place second pacemaker lead. Pt was recovering fairly well from surgery, however just last week, pt came to the ED with hypotension, and was once again transferred back down to [facility] from 01/16/23-01/20. Pt finally arrived back home one week ago, and has slowly been increasing activity level. Pt feeling better since lead placement, increased recovery and does not fatigue as quickly. Continues to primarily mobilize in a manual w/c, occasionally uses FWW for short distances around the home. Wears bilateral AFOs due to LE weakness/footdrop. Has difficulty with raising arms overhead bilaterally. Has been compliant recent with prior HEP, hoping to increase frequency or repetitions of exercises as tolerated. PT-OP-C Subjective Start: 01/26/23 17:24 Freq: Status: Active Protocol: Document 06/01/23 14:30 DCW (Rec: 06/01/23 15:10 DCW [id number]) OP-PT Subjective Patient Comments Patient Comments I'd like to start with a blood preasure reading, my machine was giving me strange readings. (113/66) PT-OP-E Functional Tests Start: 01/26/23 17:24 Freq: Status: Active Protocol: Document 05/02/23 14:30 DCW (Rec: 05/02/23 14:54 DCW [id number]) Functional Tests 6 Minute Walk Test Distance 410' Device Used FWW Comments 1.13 ft/sec Five Times Sit to Stand Test Score 1:20.90 Comments standing from w/c, wearing B AFO PT-OP-G Mobility & Gait Start: 01/27/23 08:55 Freq: Status: Active Protocol: Document 05/02/23 14:30 DCW (Rec: 05/02/23 14:54 DCW [id number]) OP Gait Assessment Gait Gait Assistance Required: Contact Guard Assist Distance (Feet) 410 Able to Maintain Weight Bearing Status Yes During Gait Assistive Devices Assistive Device Gait Belt,Front Wheeled Walker Orthotic/Prosthetic Devices or Brace: Yes Gait Deviations General Gait Pattern Antalgic,Decreased Stride Length,Decreased Feet Clearance,Flexed Trunk,Step-to Gait Factors Limiting Gait Function Factors Limiting Gait Function Decreased Activity Tolerance, Decreased Strength,Pain,Poor Balance PT-OP-K Range of Motion Start: 01/27/23 08:55 Freq: Status: Active Protocol: Document 05/02/23 14:30 DCW (Rec: 05/02/23 14:54 DCW [id number]) Shoulder Goniometric Range of Motion Shoulder Right Active Testing Position Sitting Flexion 114 Abduction 88 Left Active Testing Position Sitting Flexion 97 Abduction 90 PT-OP-M Strength Start: 01/26/23 17:24 Freq: Status: Active Protocol: Document 05/02/23 14:30 DCW (Rec: 05/02/23 14:54 DCW [id number]) Hip Strength Hip Manual Muscle Testing Right Flexion (L2) 3+ Fair+ Abduction 3+ Fair+ Adduction 4- Good- Left Flexion (L2) 3+ Fair+ Abduction 3+ Fair+ Adduction 4- Good- Knee Strength Knee Manual Muscle Testing Right Flexion (S2) 3+ Fair+ Extension (L3) 4+ Good+ Left Flexion (S2) 3+ Fair+ Extension (L3) 4+ Good+ PT-OP-Q Treatments Start: 01/26/23 17:24 Freq: Status: Active Protocol: Document 06/01/23 14:30 DCW (Rec: 06/01/23 15:10 DCW [id number]) Gym Equipment Cable Column (Body Solid) Rows Resistance 50# Reps/Time x50 Biceps Curl Details Cable column in lowest position Resistance 15# Reps/Time x50 Lat Pull Down Resistance 60# Reps/Time x50 Shuttle Recovery Unilateral Squats Details AFOs removed Resistance 62# (two new) Shuttle Recovery Platform Stable Reps/Time Lx35 ; Rx10,x8 Bilateral Squats Details AFOs removed Resistance 125# (four new bands) Shuttle Recovery Platform Stable Reps/Time x50 Gait Training Gait Activity Steps Description Ascend/Descend 6 steps Device Used B rail Level of Assistance CGA Distance/Duration 3 steps x1, 2 steps x14 Comments Backs down steps for descent PT-OP-T Assessment and Plan Start: 01/26/23 17:24 Freq: Status: Active Protocol: Document 06/01/23 14:30 DCW (Rec: 06/01/23 15:10 DCW [id number]) Physical Therapy Assessment Impairments Impairments Activity Tolerance,Balance, Functional Activities, Functional Mobility,Gait,Pain, Posture,ROM,Strength,Tone, Transfers Goals Three Impairment Completes 5x Sit to tearer press clipping 1 :51.03 Impairment 05/02/23: 1:20.90 Histological Illustrator Goal (LTG) Pt to improve 5xStS score to < 60 seconds in order to display increased leg strength and improved transfer ability. LTG Duration 07/31/23 - Improving Two Impairment Pt ambulation limited to 142' in 3:20 using FWW. Impairment 05/02/23: 6MWT 410' Histological Illustrator Goal (LTG) Pt to ambulate >800' during a 6 minute walk test to demonstrate improved activity tolerance and increased independent gait mobility LTG Duration 07/31/23 - Improving One Impairment Pt does not have an appropriate home exercise program Short Term Goal (STG) Pt to be independent and compliant with appropriate HEP STG Duration Met Assessment Summary Assessment Pt scheduled for heart valve replacement 06/10/23. Will likely be okay to come into PT next week, but is then having surgery, will need to be discharged due to change in medical status and return when medicaly cleared with a new referral for a new evaluation. Physical Therapy Plan Frequency and Duration Frequency of Treatment 2x/Week Plan of Care Start Date 05/02/23 Plan of Care End Date 07/31/23 Therapeutic Interventions Therapeutic Interventions Balance Training,Coordination Training,Home Exercise Program ,Joint Mobilizations,Manual Therapy,Neuromuscular Re- education,Patient/Caregiver Education,Self-Care/Home Management,Soft Tissue Mobilization,Therapeutic Activities,Therapeutic Exercises Next Visit Focus/Plan Next Note Type Treatment Note Next Visit Plan LE strength, shoulder mobility , activty tolerance, balance and gait training
--- NOTE | 2023-06-06 16:18 | PT.OTN ---
Current Diagnoses Morbid (severe) obesity due to excess calories (06/06/23) Other chronic pain (06/06/23) Dorsalgia, unspecified (06/06/23) Muscle weakness (generalized) (06/06/23) Pain in right toe(s) (06/06/23) Pain in left toe(s) (06/06/23) Other abnormalities of gait and mobility (06/06/23) Other symptoms and signs involving the musculoskeletal system (06/06/23) Chronic fatigue, unspecified (06/06/23) Other reduced mobility (06/06/23) Physical Therapy Treatment Note PT-OP-A Visit Information Start: 01/26/23 17:24 Freq: Status: Active Protocol: Document 06/06/23 13:46 LRN (Rec: 06/06/23 14:36 LRN [id number]) Out-Patient Physical Therapy Visit Information Visit Information Visit Type Discharge Summary Visit Start Time 13:46 Visit Stop Time 14:36 Visit Number 26 Evaluation Information Evaluation Date 01/26/23 PT-OP-B Current Condition Start: 01/26/23 17:24 Freq: Status: Active Protocol: Document 01/26/23 14:00 DCW (Rec: 01/27/23 08:55 DCW [id number]) Current Condition History of Current Condition Onset Date February 2021 Current Complaints Weakness, poor balance, falls risk, physical debility History of Current Condition Pt is a 72 year old male presenting with a highly complex medical history. Pt is two years (February,) s/ p initial onset of health complications, which began with a severe bacterial respiratory infection. This resulted in a more than three month hospitalization, including requiring ventilation. Pt then discharged to a rehab facility for an additional four+ months, returning home in October. Pt begain outpatient physical therapy at this facility in December,, secondary to LE weakness, decreased mobility, fatigue, increased burden of care, inability to ambulate, bilateral foot drop, and R shoulder dysfunction, all seemingly stemming from illness and extended hospitalization. 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 At that time, only one lead was placed due to difficulty with the anatomy of cardiac arteries. After pacemaker was implanted, pt once again resumed PT, only to stop once again in order to have surgery at [facility] in January,, to place second pacemaker lead. Pt was recovering fairly well from surgery, however just last week, pt came to the ED with hypotension, and was once again transferred back down to [facility] from 01/16/23-01/20. Pt finally arrived back home one week ago, and has slowly been increasing activity level. Pt feeling better since lead placement, increased recovery and does not fatigue as quickly. Continues to primarily mobilize in a manual w/c, occasionally uses FWW for short distances around the home. Wears bilateral AFOs due to LE weakness/footdrop. Has difficulty with raising arms overhead bilaterally. Has been compliant recent with prior HEP, hoping to increase frequency or repetitions of exercises as tolerated. PT-OP-C Subjective Start: 01/26/23 17:24 Freq: Status: Active Protocol: Document 06/06/23 13:46 LRN (Rec: 06/06/23 14:36 LRN [id number]) OP-PT Subjective Patient Comments Patient Comments Having surgery Sat, prepping [facility] @ [facility] to fix the large ventricle of the heart; therefore requests DC today in prep for surgery. Pt understands he will need a new referral to return to therapy when ready. PT-OP-E Functional Tests Start: 01/26/23 17:24 Freq: Status: Active Protocol: Document 06/06/23 13:46 LRN (Rec: 06/06/23 15:59 LRN [id number]) Functional Tests Five Times Sit to Stand Test Score 10x STS is 54 secs Comments Pt did quick touch but not full sit. PT-OP-G Mobility & Gait Start: 01/27/23 08:55 Freq: Status: Active Protocol: Document 05/02/23 14:30 DCW (Rec: 05/02/23 14:54 DCW [id number]) OP Gait Assessment Gait Gait Assistance Required: Contact Guard Assist Distance (Feet) 410 Able to Maintain Weight Bearing Status Yes During Gait Assistive Devices Assistive Device Gait Belt,Front Wheeled Walker Orthotic/Prosthetic Devices or Brace: Yes Gait Deviations General Gait Pattern Antalgic,Decreased Stride Length,Decreased Feet Clearance,Flexed Trunk,Step-to Gait Factors Limiting Gait Function Factors Limiting Gait Function Decreased Activity Tolerance, Decreased Strength,Pain,Poor Balance PT-OP-K Range of Motion Start: 01/27/23 08:55 Freq: Status: Active Protocol: Document 05/02/23 14:30 DCW (Rec: 05/02/23 14:54 DCW [id number]) Shoulder Goniometric Range of Motion Shoulder Right Active Testing Position Sitting Flexion 114 Abduction 88 Left Active Testing Position Sitting Flexion 97 Abduction 90 PT-OP-M Strength Start: 01/26/23 17:24 Freq: Status: Active Protocol: Document 05/02/23 14:30 DCW (Rec: 05/02/23 14:54 DCW [id number]) Hip Strength Hip Manual Muscle Testing Right Flexion (L2) 3+ Fair+ Abduction 3+ Fair+ Adduction 4- Good- Left Flexion (L2) 3+ Fair+ Abduction 3+ Fair+ Adduction 4- Good- Knee Strength Knee Manual Muscle Testing Right Flexion (S2) 3+ Fair+ Extension (L3) 4+ Good+ Left Flexion (S2) 3+ Fair+ Extension (L3) 4+ Good+ PT-OP-Q Treatments Start: 01/26/23 17:24 Freq: Status: Active Protocol: Document 06/06/23 13:46 LRN (Rec: 06/06/23 14:36 LRN [id number]) Gym Equipment Cable Column (Body Solid) Trunk Rot Details Trunk rot Resistance Lev 4 TB Reps/Time x 50 Triceps Details Triceps press Resistance 20# Reps/Time x30 Rows Resistance 50# Reps/Time x40 Biceps Curl Details Cable column in lowest position Resistance 15# Reps/Time x20 Lat Pull Down Resistance 60# Reps/Time x30 Therapeutic Exercises Sitting Exercises Sit to stand Sitting Exercise Name Sit to stand Reps/Minutes 10x on plinth, 2x on other hgt surfaces (W/C, lower plinth height) PT-OP-T Assessment and Plan Start: 01/26/23 17:24 Freq: Status: Active Protocol: Document 06/06/23 13:46 LRN (Rec: 06/06/23 14:36 LRN [id number]) Physical Therapy Assessment Goals Three Impairment Completes 5x Sit to children's minister 1 :51.03 Impairment 05/02/23: 1:20.90 Mcfp Goal (LTG) Pt to improve 5xStS score to < 60 seconds in order to display increased leg strength and improved transfer ability. 06/06/23: 10x Sit<>reinsurance clerk 54 secs with squat sit from plinth equal to w/c height. He did a buttock touch to surface rather than full sit between standing. He was wearing B AFO that was loosened at the top strap. He did not have his walker; therefore he had to use a 4WW that required him to hold it in a locked position. LTG Duration 07/31/23 (06/06/23: Pt does 10xSTS in 54 sec) Two Impairment Pt ambulation limited to 142' in 3:20 using FWW. Impairment 05/02/23: 6MWT 410' Mcfp Goal (LTG) Pt to ambulate >800' during a 6 minute walk test to demonstrate improved activity tolerance and increased independent gait mobility. 05/02/23: 410 ft w/FWW LTG Duration 07/31/23 - (06/06/23: Improved, not able to assess, FWW not available). One Impairment Pt does not have an appropriate home exercise program Short Term Goal (STG) Pt to be independent and compliant with appropriate HEP STG Duration Met Assessment Summary Assessment Pt is a 73 yo male who was being seen for building up of leg and shoulder strength, and to decrease burden of care, and decrease reliance on wheelchair by improving gait, balance, and activity tolerance. His next therapy session is scheduled for , but because he is having a heart surgery/valve replacement 06/10/23 he is feeling anxious and stressed over the pending surgery and he is requesting discharge from physical therapy today. He understands that he will need a new referral to return to physical therapy after his surgery. The pt has been taught a self care HEP and he has improved in his gait ( walks 6' w/FWW of 410ft, initially only able to walk 3' 20 of 142 ft) and endurance ( 5xSTS in 1 min 51 secs; today 10xSTS in 54 secs-?full sit); therefore the pt is being discharged to his HEP. Physical Therapy Plan Discharge Physical Therapy Discharge Comments Rehab has been under the care of [facility]. Omar is sick today; therefore I am discharging the pt from PT at patient request. Thank you for your referral. Next Visit Focus/Plan Next Note Type Treatment Note
== END 2023-06-08 12:34 | disposition home or self-care (01) ==
LOC: PHYS 13:45
PROVIDERS: Family Provider Student in an Organized Health Care Education/Training Program; PCP Family Medicine; Referring Provider Family Medicine; Visit Provider Family Medicine
DX: E66.01 Morbid (severe) obesity due to excess calories (principal); M54.9 Dorsalgia, unspecified; G89.29 Other chronic pain; R29.898 Other symptoms and signs involving the musculoskeletal system; M79.674 Pain in right toe(s); M79.675 Pain in left toe(s); M62.81 Muscle weakness (generalized); R53.82 Chronic fatigue, unspecified; Z74.09 Other reduced mobility; R26.89 Other abnormalities of gait and mobility
CPT/HCPCS: 97110; 97112; 97116; 97140; 97163; 97530

== ENCOUNTER → 2023-07-17 07:18 | Outpatient (CLI) | payer MEDICARE, SELFPAY ==
[2022-03-10 23:31] VITALS: BMI 40.0
[2022-03-11 12:11] VITALS: PULSE 64; RESP 22; O2SAT 98
[2023-07-17 07:56] LABS: Hematocrit 31.6 % (41-53); Hemoglobin 10.7 g/dL (13.5-17.5); Mean Corpuscular HGB Conc 33.7 % (30-36); Mean Corpuscular Volume 97.9 fL (80-100); Platelet Count 161 X10^3/uL (150-400); Red Blood Cell Count 3.23 X10^6/uL (4.5-5.9); Red Cell Distribution Width 15.2 % (11.6-14.8); White Blood Cell Count 3.9 X10^3/uL (4.5-11.0)
[2023-07-17 08:13] LABS: BUN Creatinine Ratio 28.8 (6-22); Blood Urea Nitrogen 44 mg/dL (9-20); Calcium 9.2 mg/dL (8.4-10.2); Carbon Dioxide 28 mmol/L (22-32); Chloride 110 mmol/L (98-107); Estimated Glomerular Filt Rate 47 mL/min (>60); Glucose 89 mg/dL (80-110); HEMOLYSIS < 15 (0-50); Potassium 4.8 mmol/L (3.4-5.1); Sodium 140 mmol/L (137-145)
== END ==
LOC: LAB 07:20
PROVIDERS: Family Provider Family Medicine; PCP Family Medicine; Referring Provider Internal Medicine Interventional Cardiology; Visit Provider Internal Medicine Interventional Cardiology
DX: Z98.890 Other specified postprocedural states (principal); Z95.818 Presence of other cardiac implants and grafts
CPT/HCPCS: 36415; 80048; 85027

== ENCOUNTER 2023-08-09 12:20 | Day surgery (SDC) | payer MEDICARE, SELFPAY ==
[2022-03-10 23:31] VITALS: BMI 40.0
[2022-03-11 12:11] VITALS: PULSE 64; RESP 22; O2SAT 98
[2023-07-31 11:53] VITALS: BMI 41.1
--- NOTE | 2023-08-09 14:09 | SUR.OPER ---
Supine on padded OR bed, head on pillow, arms secured on padded arm boards at <90 degrees abduction, legs uncrossed, safety belt at thigh, tape over blanket over lower legs. BUMP UNDER OPERATIVE SIDE HIP
[2023-08-09] MEDS: VANCOMYCIN 1,000 MG/200 ML PIGGYBACK 200 MG IV (14:14)
[2023-08-09 14:17] VITALS: BMI 41.2
[2023-08-09] MEDS: LACTATED RINGERS 1,000 ML 42 ML IV (14:17)
[2023-08-09 14:23] VITALS: BP 91/53; PULSE 70; RESP 20; TEMP 37; O2SAT 94
--- NOTE | 2023-08-09 14:23 | PM.PREOP ---
Pre-operative Note Interval Note History & Physical reviewed/Exam performed by Physician: Yes Changes to H&P: No
[2023-08-09] MEDS: CEFAZOLIN VIAL 3 GM in SODIUM CHLORIDE 0.9% 100 ML IV (15:09)
[2023-08-09] MEDS: BUPIVACAINE 0.25% (PF) VIAL 30 ML INJ (15:23)
--- NOTE | 2023-08-09 15:42 | P.PCN_ITS ---
Peripheral Nerve Block Note Pre-Procedure Reason for block: Attending surgeon request/order for post-op pain management Pre-procedure checklist: Patient examined and chart reviewed, Risks, benefits, alternatives of block discussed, questions answered, Verification of anti- coagulation status, Site confirmed, Timeout performed and Standard ASA monitors applied Consent obtained from: Patient Procedure Date of procedure: 08/09/23 Start Time: 14:42 End Time: 14:57 Performed by: Jose Melendez Sedation - enter dose in comment field: IV Midazolam (mg) (1mg) and IV Fentanyl (mcg) (25mcg) Location: Pre-Op Position: Supine Laterality: Left Sterile Technique: Sterile barrier maintained, Sterile gloves, Mask, Sterile drapes, U/S probe cover and Chloraprep Skin Wheal: Lidocaine 1% mL: 5 Gauge: 27 Equipment Single injection - Needle brand, gauge, length: pajunk 100mm Medications Medications - enter concentration (%) & mL in comment field: Bupivacaine (30ml 0.5%) Incremental aspiration prior to injection: Yes Ultrasound Reason for Ultrasound: U/S guidance used for needle placement and U/S used to visualize spread of anesthetic Image printed/saved/archived: Yes Limited exam reveals no abnormal findings: Yes Vital signs VS: - 08/09/23 14:23 Temperature 98.6 F Pulse Rate 70 Respiratory Rate 20 Blood Pressure 91/53 L Pulse Oximetry 94 Oxygen Delivery Method Room Air Oxygen Delivery Method Room Air Events Nerve Block Events: Procedure uneventful Complications/Explanation for PNB under General anesthetic: Unable to locate the Saphenous nerve in the adductor canal, Abandoned attempt at that site
[2023-08-09 16:15] VITALS: BP 81/38; PULSE 77; RESP 18; TEMP 36.2; O2SAT 94
[2023-08-09 16:25] VITALS: BP 99/57; PULSE 97; RESP 22; O2SAT 97
--- NOTE | 2023-08-09 16:29 | PM.OP.1 ---
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 He is now ambulatory with the use of AFO braces however he has claw toes that are rubbing on his shoes and making it impossible for him to use his shoes and braces and thus be ambulatory. He recently had a mitral clip procedure and has been optimized to have his left foot corrected before he has a another heart procedure on his tricuspid valve. He previously had correction of his left foot toe deformities and that improved his ambulation on the right side greatly. He has been indicated for correction of his claw hallux and lesser toes. The risks and benefits of the procedure have been discussed with the patient and given the opportunity to ask questions. The risks of surgery include but are not limited to infection, malunion, nonunion, persistence of pain, damage to nerves and blood vessels, posttraumatic arthritis, DVT, PE, cardiopulmonary complications and . The patient expressed a thorough understanding of the risks and benefits of surgery and has elected to proceed. 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 Closure Type: primary Specimen(s): none sent Prosthetic devices, grafts, tissues, transplants, or devices: Arthrex 4.0 cannulated screw headless for the IP joint fusion Arthrex 2.0 cannulated headless screws for the claw toe corrections of the 2nd, 3rd, 4th and 5th toes Estimated Blood Loss (mL): 5 Blood products transfused: none Tourniquet time (min): 0 Procedure in detail: Patient was seen in the preoperative area the site of surgery marked informed consent confirmed. This was the left foot. The patient was brought back to the operating room. He underwent a regional block to limit his amount of anesthetic. And help with postoperative pain control. In the operating room he was prepped and draped in the standard sterile fashion with the left lower extremity exposed. A formal time-out procedure was performed confirming the patient's side and site of surgery administration of appropriate preoperative antibiotic. For this patient he received weight based dosing of Ancef which was 3 g as well as a separate 1 g of vancomycin due to his extensive cardiac surgery history. Attention was turned to the left lower extremity there are rigid claw toe deformities. The C-arm was brought in. Area over the IP joint of the hallux was marked out and then a small stab incision was made. The Arthrex MIS bur was inserted into the interphalangeal joint space and the joint was debrided thoroughly under fluoroscopic guidance. Once appropriate debridement under coolant irrigation was completed the bur was removed. The joint was reduced and a K-wire was introduced from the distal phalanx to the proximal phalanx and confirmed in AP and lateral planes. This was then overdrilled and the 4.0 screw advanced with excellent alignment and compression. Attention was then turned to the lesser claw toe corrections. Using a similar MIS approach the PIP joints were identified and small stab incisions were made over them with dissection down to the level of the joint bluntly. The MIS bur was inserted and debrided under cooling saline and fluoroscopic guidance along the PIP joint once appropriate bone was removed the toe was reduced and pinned from distal to proximal and confirmed in the AP and lateral planes. This was then overdrilled and then a 2.5 mm screw was advanced. The same procedure was performed for the 2nd, 3rd, 4th, 5th toes in the standard fashion. Screw lengths were measured and then appropriate advanced over the wires and confirmed appropriate placement without prominence in the AP and lateral planes. Once this was completed final fluoroscopic x-rays were taken AP and lateral confirming appropriate alignment of the great toe IP joint fusion and the lesser toe claw toe fusions.--all separate claw toe corrections were performed on the separate 2nd, 3rd, 4th, 5th toes with separate incision at the PIP joints of those digits respectively. The area was cleansed and the small incisions were closed with 4-0 nylon suture. A soft dressing was applied the drapes removed the patient was awoken from anesthesia and taken to recovery room in good condition there no immediate complications for this procedure. All counts were correct. Toes remained pink and well perfused throughout the procedure. Complications: none Post-operative Condition: stable Disposition: PACU Plan for aftercare: Weightbear as tolerated in a boot or brace. Sutures remain in place until follow up in orthopedic clinic. Keep incisions dry. May change dressings as needed otherwise keep intact until follow up. Patient may resume his Eliquis postoperative day 1
[2023-08-09 16:30] VITALS: BP 100/55; PULSE 78; RESP 18; O2SAT 92
[2023-08-09 16:35] VITALS: PULSE 66; RESP 18; O2SAT 92
[2023-08-09 17:05] VITALS: BP 89/52; PULSE 61; RESP 18; TEMP 36.2; O2SAT 92
== END 2023-08-09 17:29 | disposition home or self-care (01) ==
PROVIDERS: Family Provider Family Medicine; PCP Family Medicine; Referring Provider Orthopaedic Surgery Foot and Ankle Surgery; Visit Provider Orthopaedic Surgery Foot and Ankle Surgery
PROC: (CPT 28755; principal; 2023-08-09 14:00)
DX: M20.42 Other hammer toe(s) (acquired), left foot (principal); M20.5X2 Other deformities of toe(s) (acquired), left foot; M21.372 Foot drop, left foot; E66.01 Morbid (severe) obesity due to excess calories; G89.18 Other acute postprocedural pain
CPT/HCPCS: 28755; 28285 ×4; 64450; C1776; J0690; J1100; J2250; J2405; J2704; J3010

== ENCOUNTER → 2023-08-16 13:15 | Outpatient (CLI) | payer MEDICARE, SELFPAY ==
[2022-03-10 23:31] VITALS: BMI 40.0
[2022-03-11 12:11] VITALS: PULSE 64; RESP 22; O2SAT 98
--- NOTE | 2023-08-16 13:16 | DI.US.S_ITS ---
PROCEDURE: US PERIP VENOUS LOW EXTREM LT INDICATIONS: Possible DVT TECHNIQUE: Real-time imaging, as well as color and pulse Doppler interrogation, were performed of the lower extremity deep veins from the inguinal ligament to the popliteal fossa, with documentation of the visualized calf veins. COMPARISON: [facility], , [facility] VENOUS LOW EXTREM LT, 10/17/2017, 14:32. FINDINGS: The common femoral, femoral, popliteal, and the visualized calf veins are normally compressible, and free of intraluminal thrombus. Color and pulse Doppler demonstrate normal phasic intraluminal flow. There is normal augmentation response to distal compression maneuver. This study is limited by patient body habitus and soft tissue edema. IMPRESSION: No findings of lower extremity deep venous thrombosis. Dictated by: Bandar Flores M.D. on 08/16/2023 at 13:35 Approved by: Bandar Flores M.D. on 08/16/2023 at 13:35
== END ==
PROVIDERS: Family Provider Family Medicine; PCP Family Medicine; Referring Provider Orthopaedic Surgery Foot and Ankle Surgery; Visit Provider Orthopaedic Surgery Foot and Ankle Surgery
DX: M20.5X2 Other deformities of toe(s) (acquired), left foot (principal)
CPT/HCPCS: 93971

== ENCOUNTER 2023-08-20 13:07 | Emergency (ER) | payer MEDICARE, SELFPAY ==
[2022-03-10 23:31] VITALS: BMI 40.0
[2022-03-11 12:11] VITALS: PULSE 64; RESP 22; O2SAT 98
[2023-08-20 13:38] VITALS: BP 121/64; PULSE 72; RESP 18; TEMP 36.8; O2SAT 96; BMI 41.2
[2023-08-20 16:01] LABS: Add Manual Diff / Slide Review NO; Basophils Absolute Auto 0 /uL (0-100); Basophils Percent Auto 0.3 % (0-2); Eosinophils Absolute Auto 100 /uL (0-450); Eosinophils Percent Auto 1.2 % (2-4); Hematocrit 31.7 % (41-53); Hemoglobin 10.7 g/dL (13.5-17.5); Lymphocytes Absolute Auto 600 /uL (1100-4500); Lymphocytes Percent Auto 6.3 % (25-40); Mean Corpuscular HGB Conc 33.8 % (30-36); Mean Corpuscular Hemoglobin 33.1 PG (26-34); Mean Corpuscular Volume 97.9 fL (80-100); Monocytes Absolute Auto 700 /uL (0-900); Monocytes Percent Auto 8.1 % (3-14); Neutrophils Absolute Auto 7300 /uL (1500-7000); Neutrophils Percent Auto 84.1 % (50-75); Platelet Count 185 X10^3/uL (150-400); Red Blood Cell Count 3.24 X10^6/uL (4.5-5.9); Red Cell Distribution Width 14.8 % (11.6-14.8); White Blood Cell Count 8.7 X10^3/uL (4.5-11.0)
[2023-08-20 16:13] LABS: Alanine Aminotransferase 16 IU/L (<50); Albumin 4.1 g/dL (3.5-5.0); Albumin Globulin Ratio 1.2 (1.0-2.8); Alkaline Phosphatase 97 U/L (38-126); Aspartate Aminotransferase 27 IU/L (17-59); BUN Creatinine Ratio 26.6 (6-22); Bilirubin Total 1.1 mg/dL (0.2-1.3); Blood Urea Nitrogen 33 mg/dL (9-20); Calcium 9.5 mg/dL (8.4-10.2); Carbon Dioxide 30 mmol/L (22-32); Chloride 107 mmol/L (98-107); Estimated Glomerular Filt Rate > 60 mL/min (>60); Globulin 3.3 g/dL (1.7-4.1); Glucose 95 mg/dL (80-110); HEMOLYSIS < 15 (0-50); Potassium 5.2 mmol/L (3.4-5.1); Sodium 140 mmol/L (137-145); Total Protein 7.4 g/dL (6.3-8.2)
--- NOTE | 2023-08-20 17:13 | PC.NURSE ---
Initial placement of catheter resulted in folding over itself, no urine flow, and was removed, new coude catheter inserted with urine flow.
[2023-08-20 17:48] LABS: RBC Urine 5-10/HPF (0-5/HPF); Urine Volume 10mL (spun); WBC Urine 1-5/HPF (0-5/HPF)
[2023-08-20 17:49] LABS: Bacteria Urine None Seen; Culture Indicated Urine Cult Not Indicated; Squamous Epithelial Cell Urine None Seen (0-5/HPF)
--- NOTE | 2023-08-20 18:12 | ED_ITS ---
HPI - Male Genitourinary General Chief complaint: Urogenital-Male Stated complaint: bladder issues Time Seen by Provider: 08/20/23 18:12 Source: patient and family Mode of arrival: Ambulatory History of Present Illness HPI Narrative: 73-year-old male with problems urinating, history of BPH, takes Flomax, no recent indwelling catheter, has complex cardiac history, awaiting percutaneous tricuspid valve replacement surgery at [facility] this Monday, after percutaneous mitral valve replacement June 2023, history of congestive heart failure with low ejection fraction, had AICD placement attempted June 2022 with a problem with a lead, successful AICD revision December 2022, history of atrial fibrillation taking Eliquis chronic anticoagulation. His reason for coming in today is difficulty with urination, not particularly painful but noticing he is having urinary incontinence, no fecal incontinence. No weakness to 1 or both legs, no injury trauma fall. No known spinal lesions or problems. No fevers or chills. No painful urination. He went to local clinic for urinalysis but was unable to void, referred here for further evaluation. Related Data Home Medications Medication Instructions Recorded Confirmed fluticasone propionate 50 1 spray intranasal BID PRN Allergy 10/14/21 08/09/23 mcg/actuation nasal Symptoms spray,suspension (Flonase Allergy Relief) multivitamin with minerals-folic 1 tab PO DAILY 02/17/22 08/09/23 acid 0.4 mg tablet spironolactone 25 mg tablet 12.5 mg PO DAILY 02/02/23 08/09/23 sacubitril 24 mg-valsartan 26 mg 1 tab PO BID 02/14/23 08/09/23 tablet (Entresto) gabapentin 300 mg capsule See Rx Instructions .Route .COMPLEX 08/09/23 08/09/23 Previous Rx's Medication Instructions Recorded tamsulosin 0.4 mg capsule 0.8 mg (2 x 0.4 mg) PO DAILY #180 01/25/23 caps apixaban 5 mg tablet (Eliquis) See Rx Instructions .Route 04/27/23 .COMPLEX #180 tabs oxycodone-acetaminophen 5 mg-325 1 tab PO BEDTIME PRN pain #20 tabs 05/18/23 mg tablet pantoprazole 40 mg tablet,delayed 40 mg PO DAILY #90 tabs 07/11/23 release Allergies Allergy/AdvReac Type Severity Reaction Status Date / Time latex [LATEX] Allergy Intermediate Rash Verified 08/09/23 13:56 MULTIPLE FOOD ALLERGIES Allergy Intermediate STOMACH Uncoded 05/18/23 14:06 CRAMPS,DIARRHEA Patient History Medical History (Updated 08/20/23 @ 18:57 by Anderson Sierra MD) History of pulmonary hypertension Presence of IVC filter Morbid obesity with BMI of 50.0-59.9, adult Pulmonary edema (06/2022) Peripheral neuropathy BPH (benign prostatic hyperplasia) GERD (gastroesophageal reflux disease) Thrombocytopenia Nonischemic cardiomyopathy Severe muscle deconditioning Acute respiratory failure with hypoxia Acute on chronic systolic heart failure Pneumonia Acute hypoxemic respiratory failure Pneumonia Vision disorder Hearing loss Sleep apnea (~1989) Fractures (~1989) Foot pain (~1989) Chronic back pain (~2009) Measles (~1959) Chicken pox (~1959) Irritable bowel syndrome (~2014) Low testosterone (~1989) Deep vein thrombosis (~1989) Atrial fibrillation (~2014) Surgical History (Updated 07/31/23 @ 12:03 by Tereza Morrow RN) Status post implantation of mitral valve leaflet clip (06/10/23) AICD (automatic cardioverter/defibrillator) present (06/13/22) Anesthesia History of back surgery History of tonsillectomy History of surgery (~2015) [place] filter in place (~1992) Social History household members: spouse Smoking Status: Never smoker alcohol intake: current Smoking Status: Never smoker alcohol intake frequency: 0-2 drinks per day Substance Use Type: does not use Exam Narrative Exam Narrative: GENERAL: Well-developed patient, in mild distress. HEAD: Atraumatic. Normocephalic. EYES: Pupils equal round and reactive. Extraocular motions intact. No scleral icterus. No injection or drainage. ENT: Nose without bleeding, purulent drainage. Throat without erythema, tonsillar hypertrophy or exudate. Airway patent. NECK: Trachea midline. Non tender CARDIOVASCULAR: Regular rate and rhythm without murmurs, gallops, or rubs. RESPIRATORY: Clear to auscultation. Breath sounds equal bilaterally. No wheezes, rales, or rhonchi. GASTROINTESTINAL: Obesity, abdomen soft, non-tender, nondistended. EXTREMITIES: No edema or joint tenderness. BACK: Nontender without deformity or crepitance. No flank tenderness. NEURO: AOx3. SKIN: No rash or erythema of visible areas Initial Vital Signs Initial Vital Signs: Vital Signs Temperature 98.2 F 08/20/23 13:38 Pulse Rate 72 08/20/23 13:38 Respiratory Rate 18 08/20/23 13:38 Blood Pressure 121/64 08/20/23 13:38 Pulse Oximetry 96 08/20/23 13:38 Oxygen Delivery Method Room Air 08/20/23 13:38 Course Orders Ordered: ED Orders 08/20/23 15:53 Complete Blood Count AUTO DIFF Stat Comprehensive Metabolic Panel Stat 08/20/23 17:06 Urine Microscopic Stat Vital Signs Vital signs: Vital Signs - 8 hr 08/20/23 13:38 Temperature 98.2 F Pulse Rate 72 Respiratory Rate 18 Blood Pressure 121/64 Pulse Oximetry 96 Oxygen Delivery Method Room Air MDM - Male Genitourinary Lab Data 08/20/23 15:53 08/20/23 15:53 Labs: Lab Results 08/20/23 08/20/23 Range/Units 15:53 17:06 WBC 8.7 (4.5-11.0) X10^3/uL RBC 3.24 L (4.5-5.9) X10^6/uL Hgb 10.7 L (13.5-17.5) g/dL Hct 31.7 L (41-53) % MCV 97.9 (80-100) fL MCH 33.1 (26-34) PG MCHC 33.8 (30-36) % RDW 14.8 (11.6-14.8) % Plt Count 185 (150-400) X10^3/uL Neut % (Auto) 84.1 H (50-75) % Lymph % (Auto) 6.3 L (25-40) % [place] % (Auto) 8.1 (3-14) % Eos % (Auto) 1.2 L (2-4) % Baso % (Auto) 0.3 (0-2) % Neut # (Auto) 7300 H (1718-9399) /uL Lymph # (Auto) 600 L (4562-1422) /uL [place] # (Auto) 700 (0-900) /uL Eos # (Auto) 100 (0-450) /uL Baso # (Auto) 0 (0-100) /uL Sodium 140 (137-145) mmol/L Potassium 5.2 H (3.4-5.1) mmol/L Chloride 107 (98-107) mmol/L Carbon Dioxide 30 (22-32) mmol/L BUN 33 H (9-20) mg/dL Creatinine 1.24 (0.66-1.25) mg/dL Estimated GFR > 60 (>60) mL/min BUN/Creatinine Ratio 26.6 H (6-22) Glucose 95 (80-110) mg/dL Calcium 9.5 (8.4-10.2) mg/dL Total Bilirubin 1.1 (0.2-1.3) mg/dL AST 27 (17-59) IU/L ALT 16 (<50) IU/L Alkaline Phosphatase 97 (38-126) U/L Total Protein 7.4 (6.3-8.2) g/dL Albumin 4.1 (3.5-5.0) g/dL Globulin 3.3 (1.7-4.1) g/dL Albumin/Globulin Ratio 1.2 (1.0-2.8) Urine RBC 5-10/hpf H (0-5/HPF) Urine WBC 1-5/hpf (0-5/HPF) Ur Squamous Epith Cells None seen (0-5/HPF) Urine Bacteria None seen (None) Ur Culture Indicated? Cult not indicated Vol Urine Centrifuged 10ml (spun) Urine Dip Bedside Urine Glucose Negative Bedside Urine Bilirubin - Negative Bedside Urine Ketone - Negative Urine Specific [place] 1.020 Bedside Urine Occult Blood ++ Bedside Urine pH 6.0 Bedside Urine Protein - Negative Bedside Urine Urobilinogen - Negative Bedside Urine Nitrite - Negative Bedside Urine Leukocytes +/- 15 Esterase MDM Narrative Medical decision making narrative: Urinary incontinence suspicious for overflow, history of BPH taking chronic Flomax, no prostate cancers, no chronic indwelling Pedroza catheter. At triage due to his obesity it was difficult to determine adequate bladder volume. Pedroza catheter was placed by nursing, apparently this was quite difficult, a 2nd attempt was required, approximately 350 cc nonbloody urine in initial bag, concern for prostate enlargement. We will leave Pedroza catheter in place for now, as he may return later today with similar symptoms given difficulty of initial placement, and history of BPH. Follow up with Urology advised, noting that he is awaiting a cardiac percutaneous valve procedure this Monday in [place]. Afebrile, sirs screen negative. We will check urinalysis to evaluate for infection Urinalysis with slight blood, no pyuria, no bacteria, negative. Leave Pedroza catheter in place for now. Patient is high risk for prostate surgery, likely will need Urology consultation through [facility] if he were to have any future urological interventions. Could consider leaving the Pedroza out, but given BPH history and difficulty with placement, likely will come back in a few hours with same problem. Discharge Plan Departure Patient Disposition: Home Clinical Impression: Urinary incontinence, Benign prostatic hyperplasia Activity Restrictions/Additional Instructions: Urinary continence with history of prostate enlargement, complex cardiac history, very high risk for Urology surgery but could be considered in tertiary center. You are awaiting tricuspid percutaneous valve placement this Monday at [facility]. Today your urinalysis did not suggest infection. There is some difficulty with placing the catheter, enlarged prostate suspected. We could take the catheter out but is very highly likely that you would have more urinary symptoms and come back in a few hours. Leave Pedroza catheter in place for now. Contact your squeezer operator Monday during regular hours to see if that affects your Monday procedure. Consider local urology follow up, however given your complex cardiac history, seems unlikely that you would have any prostate surgery in the future here, consider urology consultation through [facility] for your other complex cardiac issues are being addressed. Leave Pedroza catheter in place for now, follow-up as directed with your cardiology team at [facility]. Continue your Flomax medication for now. Continue her other chronic medications for now. Return earlier to this/nearest emergency department for any change worsening symptoms or any concerns prior Prescriptions: No Action Entresto 24-26 mg tablet 1 tab PO BID spironolactone 25 mg tablet 12.5 mg PO DAILY oxycodone-acetaminophen 5-325 mg tablet 1 tab PO BEDTIME PRN (Reason: pain) Qty: 20 0RF tamsulosin 0.4 mg capsule 0.8 mg PO DAILY Qty: 180 3RF Eliquis 5 mg tablet See Rx Instructions .ROUTE .COMPLEX Qty: 180 3RF Dose Instruction: TAKE 1 TABLET TWICE A DAY Rx Instructions: TAKE 1 TABLET TWICE A DAY pantoprazole 40 mg tablet,delayed release (DR/EC) 40 mg PO DAILY Qty: 90 1RF fluticasone propionate [Flonase Allergy Relief] 50 mcg/actuation spray,suspension 1 spray intranasal BID PRN (Reason: Allergy Symptoms) Rx Instructions: administer into each nostril gabapentin 300 mg capsule See Rx Instructions .ROUTE .COMPLEX Rx Instructions: 300mg in am and 600mg at bedtime. multivit with min-folic acid 0.4 mg Tablet 1 tab PO DAILY Referrals: Matt Lopez MD [Primary Care Provider] - Stand Alone Forms: Patient Portal/API
[2023-08-20 18:44] VITALS: BP 137/73; PULSE 71; O2SAT 97
== END 2023-08-20 18:15 | disposition home or self-care (01) ==
PROVIDERS: Emergency Medicine; Emergency Provider Emergency Medicine; Family Provider Family Medicine; PCP Family Medicine
DX: N40.1 Benign prostatic hyperplasia with lower urinary tract symptoms (principal); N39.498 Other specified urinary incontinence
CPT/HCPCS: 36415; 51702; 80053; 81003; 81015; 85025; 99284

== ENCOUNTER 2023-08-24 07:09 | Emergency (ER) | payer MEDICARE, SELFPAY ==
[2022-03-10 23:31] VITALS: BMI 40.0
[2022-03-11 12:11] VITALS: PULSE 64; RESP 22; O2SAT 98
[2023-08-24 07:30] VITALS: PULSE 71; O2SAT 98
[2023-08-24 07:35] VITALS: BP 134/80; PULSE 71; RESP 14; TEMP 36.6; O2SAT 98; BMI 40.9
[2023-08-24 08:00] VITALS: PULSE 70; O2SAT 98
--- NOTE | 2023-08-24 08:11 | ED.RECABL ---
HPI - Recheck/Abnormal Lab/Rx General Chief Complaint: Recheck/Abnormal Lab/Rx Stated Complaint: cath issues, pain Time Seen by Provider: 08/24/23 08:09 Source: patient and family Mode of arrival: Family Vehicle History of Present Illness HPI narrative: Patient 73-year-old male history of BPH taking chronic Flomax had urinary retention on August 19 with seen evaluated here Pedroza catheter was placed. He actually had blood work at that time as well. He has a cardiac procedure down at [facility] tomorrow for a tricuspid valve. Today he reports that he had some leaking around his cast of catheter he has a little bit of discomfort whenever he bends over but otherwise no pain nausea vomiting fever chills or any other symptoms Related Data Home Medications Medication Instructions Recorded Confirmed fluticasone propionate 50 1 spray intranasal BID PRN Allergy 10/14/21 08/09/23 mcg/actuation nasal Symptoms spray,suspension (Flonase Allergy Relief) multivitamin with minerals-folic 1 tab PO DAILY 02/17/22 08/09/23 acid 0.4 mg tablet spironolactone 25 mg tablet 12.5 mg PO DAILY 02/02/23 08/09/23 sacubitril 24 mg-valsartan 26 mg 1 tab PO BID 02/14/23 08/09/23 tablet (Entresto) gabapentin 300 mg capsule See Rx Instructions .Route .COMPLEX 08/09/23 08/09/23 Previous Rx's Medication Instructions Recorded tamsulosin 0.4 mg capsule 0.8 mg (2 x 0.4 mg) PO DAILY #180 01/25/23 caps apixaban 5 mg tablet (Eliquis) See Rx Instructions .Route 04/27/23 .COMPLEX #180 tabs oxycodone-acetaminophen 5 mg-325 1 tab PO BEDTIME PRN pain #20 tabs 05/18/23 mg tablet pantoprazole 40 mg tablet,delayed 40 mg PO DAILY #90 tabs 07/11/23 release Allergies Allergy/AdvReac Type Severity Reaction Status Date / Time latex [LATEX] Allergy Intermediate Rash Verified 08/24/23 07:38 MULTIPLE FOOD ALLERGIES Allergy Intermediate STOMACH Uncoded 08/24/23 07:38 CRAMPS,DIARRHEA Patient History Medical History (Updated 08/24/23 @ 08:35 by Ana Romero DO) History of pulmonary hypertension Presence of IVC filter Morbid obesity with BMI of 50.0-59.9, adult Pulmonary edema (06/2022) Peripheral neuropathy BPH (benign prostatic hyperplasia) GERD (gastroesophageal reflux disease) Thrombocytopenia Nonischemic cardiomyopathy Severe muscle deconditioning Acute respiratory failure with hypoxia Acute on chronic systolic heart failure Pneumonia Acute hypoxemic respiratory failure Pneumonia Vision disorder Hearing loss Sleep apnea (~1989) Fractures (~1989) Foot pain (~1989) Chronic back pain (~2009) Measles (~1959) Chicken pox (~1959) Irritable bowel syndrome (~2014) Low testosterone (~1989) Deep vein thrombosis (~1989) Atrial fibrillation (~2014) Surgical History (Updated 07/31/23 @ 12:03 by Tereza Morrow RN) Status post implantation of mitral valve leaflet clip (06/10/23) AICD (automatic cardioverter/defibrillator) present (06/13/22) Anesthesia History of back surgery History of tonsillectomy History of surgery (~2015) [place] filter in place (~1992) Social History household members: spouse Smoking Status: Never smoker alcohol intake: current Smoking Status: Never smoker alcohol intake frequency: 0-2 drinks per day Substance Use Type: does not use Exam Initial Vital Signs Initial Vital Signs: Vital Signs Pulse Rate 71 08/24/23 07:30 Pulse Oximetry 98 08/24/23 07:30 GENERAL: Alert pleasant 73-year-old and in no acute distress. HEENT: Head atraumatic,EOMI, pupils reactive, face symmetric, moist mucous membranes CARDIOVASCULAR: Regular rate and rhythm without murmurs, rubs or gallops. RESPIRATORY: Breath sounds equal bilaterally, no wheezes rales or rhonchi. ABDOMEN: Soft, nontender. Normoactive bowel sounds all 4 quadrants. No guarding or rebound. : Pedroza catheter in place EXTREMITIES: Normal range of motion, no clubbing or edema. Neurovascularly intact NEUROLOGICAL: Alert and oriented x4. SKIN: Warm, dry, no laceration, no petechiae, no rashes or lesions. Course Vital Signs Vital signs: Vital Signs - 8 hr 08/24/23 07:30 08/24/23 07:35 08/24/23 08:00 Temperature 97.9 F Pulse Rate 71 71 70 Respiratory Rate 14 Blood Pressure 134/80 Pulse Oximetry 98 98 98 Oxygen Delivery Method Room Air 08/24/23 08:30 08/24/23 08:39 Temperature Pulse Rate 73 Respiratory Rate Blood Pressure 140/89 Pulse Oximetry 97 97 Oxygen Delivery Method Room Air MDM - Recheck/Abnormal Lab/Rx MDM Narrative Medical decision making narrative: Patient is 73-year-old male presents today with leaking Pedroza catheter that was placed 4 days ago. Nurse reports that the balloon was under inflated she has inflated the balloon completely no further leaking urine seems to be draining. Blood work from the has been reviewed elevation in potassium of 5.2 he has no complaints. Labs have been printed for them recommend that he have labs rechecked tomorrow prior to surgery. They are given a copy of these labs. He is afebrile Discharge Plan Departure Patient Disposition: Home Clinical Impression: Complication of Pedroza catheter Instructions: How to Care for Your Pedroza Catheter -- Male Activity Restrictions/Additional Instructions: *You have been diagnosed with Pedroza catheter problem *What to do: Potassium on August 19 was 5.2 please have this rechecked prior to surgery tomorrow A catheter can stay for some time but do recommend that the catheter come out in about 2-4 weeks *Continue to take medications as directed *Follow up with your primary care provider in 2-3 days or call [phone] *Return to ER if you should have Pedroza catheter problem or any new, worsening or concerning symptoms Prescriptions: No Action Entresto 24-26 mg tablet 1 tab PO BID spironolactone 25 mg tablet 12.5 mg PO DAILY oxycodone-acetaminophen 5-325 mg tablet 1 tab PO BEDTIME PRN (Reason: pain) Qty: 20 0RF tamsulosin 0.4 mg capsule 0.8 mg PO DAILY Qty: 180 3RF Eliquis 5 mg tablet See Rx Instructions .ROUTE .COMPLEX Qty: 180 3RF Dose Instruction: TAKE 1 TABLET TWICE A DAY Rx Instructions: TAKE 1 TABLET TWICE A DAY pantoprazole 40 mg tablet,delayed release (DR/EC) 40 mg PO DAILY Qty: 90 1RF fluticasone propionate [Flonase Allergy Relief] 50 mcg/actuation spray,suspension 1 spray intranasal BID PRN (Reason: Allergy Symptoms) Rx Instructions: administer into each nostril gabapentin 300 mg capsule See Rx Instructions .ROUTE .COMPLEX Rx Instructions: 300mg in am and 600mg at bedtime. multivit with min-folic acid 0.4 mg Tablet 1 tab PO DAILY Referrals: Matt Lopez MD [Primary Care Provider] - Stand Alone Forms: Patient Portal/API
[2023-08-24 08:30] VITALS: PULSE 73; O2SAT 97
[2023-08-24 08:39] VITALS: BP 140/89; O2SAT 97
== END 2023-08-24 08:44 | disposition home or self-care (01) ==
PROVIDERS: Emergency Provider Emergency Medicine; Family Provider Family Medicine; PCP Family Medicine
DX: T83.031A Leakage of indwelling urethral catheter, initial encounter (principal)
CPT/HCPCS: 51798; 99282; 99283

== ENCOUNTER 2023-08-31 07:37 | Emergency (ER) | payer MEDICARE, SELFPAY ==
[2022-03-10 23:31] VITALS: BMI 40.0
[2022-03-11 12:11] VITALS: PULSE 64; RESP 22; O2SAT 98
[2023-08-31 07:47] VITALS: BP 121/63; PULSE 65; RESP 16; TEMP 36.4; O2SAT 97; BMI 43.0
[2023-08-31 07:49] VITALS: PULSE 65; O2SAT 96
[2023-08-31 07:50] VITALS: BP 121/63; PULSE 67; O2SAT 98
[2023-08-31 08:00] VITALS: BP 127/85; PULSE 69; O2SAT 98
--- NOTE | 2023-08-31 08:25 | ED.MALEGU ---
HPI - Male Genitourinary General Chief complaint: Urogenital-Male Stated complaint: cath leaking Time Seen by Provider: 08/31/23 07:54 Source: patient, RN notes reviewed and old records reviewed Mode of arrival: Family Vehicle Limitations: no limitations History of Present Illness HPI Narrative: 73-year-old male history of BPH, with urinary retention on August 19 had Pedroza catheter placed. Patient presents with complaint of leakage around his catheter. Patient awoke in bed with urine soaked into the bed. He was here in the last week and they reinflated the Pedroza balloon and had improvement for similar symptoms. Today's catheter was changed out patient does not have any persistent leakage. He has not had any fevers no new pain no back or flank pain, no nausea or vomiting or GI or urinary symptoms. He does note with his prior catheter he was having discomfort when he had have a bowel movement. They has been trying to get in with Urology they are waiting to hear back. They has been in touch with the primary care and do have follow-up set up. Related Data Home Medications Medication Instructions Recorded Confirmed fluticasone propionate 50 1 spray intranasal BID PRN Allergy 10/14/21 08/09/23 mcg/actuation nasal Symptoms spray,suspension (Flonase Allergy Relief) multivitamin with minerals-folic 1 tab PO DAILY 02/17/22 08/09/23 acid 0.4 mg tablet spironolactone 25 mg tablet 12.5 mg PO DAILY 02/02/23 08/09/23 sacubitril 24 mg-valsartan 26 mg 1 tab PO BID 02/14/23 08/09/23 tablet (Entresto) gabapentin 300 mg capsule See Rx Instructions .Route .COMPLEX 08/09/23 08/09/23 Previous Rx's Medication Instructions Recorded tamsulosin 0.4 mg capsule 0.8 mg (2 x 0.4 mg) PO DAILY #180 01/25/23 caps apixaban 5 mg tablet (Eliquis) See Rx Instructions .Route 04/27/23 .COMPLEX #180 tabs oxycodone-acetaminophen 5 mg-325 1 tab PO BEDTIME PRN pain #20 tabs 05/18/23 mg tablet pantoprazole 40 mg tablet,delayed 40 mg PO DAILY #90 tabs 07/11/23 release Allergies Allergy/AdvReac Type Severity Reaction Status Date / Time latex [LATEX] Allergy Intermediate Rash Verified 08/31/23 07:53 MULTIPLE FOOD ALLERGIES Allergy Intermediate STOMACH Uncoded 08/31/23 07:53 CRAMPS,DIARRHEA Review of Systems Review of Systems ROS Unobtainable: All systems reviewed & are unremarkable except as noted in HPI and below Patient History Medical History History of pulmonary hypertension Presence of IVC filter Morbid obesity with BMI of 50.0-59.9, adult Pulmonary edema (06/2022) Peripheral neuropathy BPH (benign prostatic hyperplasia) GERD (gastroesophageal reflux disease) Thrombocytopenia Nonischemic cardiomyopathy Severe muscle deconditioning Acute respiratory failure with hypoxia Acute on chronic systolic heart failure Pneumonia Acute hypoxemic respiratory failure Pneumonia Vision disorder Hearing loss Sleep apnea (~1989) Fractures (~1989) Foot pain (~1989) Chronic back pain (~2009) Measles (~1959) Chicken pox (~1959) Irritable bowel syndrome (~2014) Low testosterone (~1989) Deep vein thrombosis (~1989) Atrial fibrillation (~2014) Surgical History Status post implantation of mitral valve leaflet clip (06/10/23) AICD (automatic cardioverter/defibrillator) present (06/13/22) Anesthesia History of back surgery History of tonsillectomy History of surgery (~2015) [place] filter in place (~1992) Social History household members: spouse Smoking Status: Never smoker alcohol intake: current Smoking Status: Never smoker alcohol intake frequency: 0-2 drinks per day Substance Use Type: does not use Exam Narrative Exam Narrative: GENERAL: Alert and oriented x three, male in mild distress. HEENT: Head normocephalic, atraumatic, EOMI, pupils reactive, face symmetric, moist mucous membranes NECK: Supple, full range of motion CARDIOVASCULAR: Regular rate and rhythm without murmurs, rubs or gallops. RESPIRATORY: Breath sounds equal bilaterally, no wheezes rales or rhonchi. ABDOMEN: Soft, nontender. Normoactive bowel sounds all 4 quadrants. No guarding or rebound, rigidity, no mass : No CVA tenderness, Pedroza catheter in place draining translucent yellow urine. EXTREMITIES: Normal range of motion, no clubbing or edema. Neurovascularly intact NEUROLOGICAL: Cranial nerves II through XII grossly intact. Moving all extremities SKIN: Warm, dry, no petechiae, no rashes or lesions. Initial Vital Signs Initial Vital Signs: Vital Signs Temperature 97.6 F 08/31/23 07:47 Pulse Rate 65 08/31/23 07:47 Respiratory Rate 16 08/31/23 07:47 Blood Pressure 121/63 08/31/23 07:47 Pulse Oximetry 97 08/31/23 07:47 Oxygen Delivery Method Room Air 08/31/23 07:47 Course Vital Signs Vital signs: Vital Signs - 8 hr 08/31/23 07:47 08/31/23 07:49 08/31/23 07:50 Temperature 97.6 F Pulse Rate 65 65 67 Respiratory Rate 16 Blood Pressure 121/63 Pulse Oximetry 97 96 98 Oxygen Delivery Method Room Air 08/31/23 07:50 08/31/23 08:00 08/31/23 08:00 Temperature Pulse Rate 69 Respiratory Rate Blood Pressure 121/63 127/85 Pulse Oximetry 98 Oxygen Delivery Method MDM - Male Genitourinary MDM Narrative Medical decision making narrative: 73-year-old with leaking around his catheter, patient's catheter was switched out today and he had issues with what was felt to be the balloon in the last week and it was reinflated at that ER visit. He typically was having about 700 mL out nightly had woken up this morning with a about 300 mL in the bag in the entire bed soaked with urine. Patient has not process of setting up follow up with Urology, he does have backup follow-up set up with Dr. Lopez he does take Flomax daily and suspected to have BPH is in the main cause of his symptoms. Discharge Plan Departure Patient Disposition: Home Clinical Impression: Malfunction of Pedroza catheter Instructions: How to Care for Your Pedroza Catheter -- Male Activity Restrictions/Additional Instructions: Follow up with Urology. Continue your Flomax. Please return if you have difficulties with your catheter any fevers new abdominal back or flank pain, bleeding in your catheter, blockages or if it has not draining. Prescriptions: No Action Entresto 24-26 mg tablet 1 tab PO BID spironolactone 25 mg tablet 12.5 mg PO DAILY oxycodone-acetaminophen 5-325 mg tablet 1 tab PO BEDTIME PRN (Reason: pain) Qty: 20 0RF tamsulosin 0.4 mg capsule 0.8 mg PO DAILY Qty: 180 3RF Eliquis 5 mg tablet See Rx Instructions .ROUTE .COMPLEX Qty: 180 3RF Dose Instruction: TAKE 1 TABLET TWICE A DAY Rx Instructions: TAKE 1 TABLET TWICE A DAY pantoprazole 40 mg tablet,delayed release (DR/EC) 40 mg PO DAILY Qty: 90 1RF fluticasone propionate [Flonase Allergy Relief] 50 mcg/actuation spray,suspension 1 spray intranasal BID PRN (Reason: Allergy Symptoms) Rx Instructions: administer into each nostril gabapentin 300 mg capsule See Rx Instructions .ROUTE .COMPLEX Rx Instructions: 300mg in am and 600mg at bedtime. multivit with min-folic acid 0.4 mg Tablet 1 tab PO DAILY Referrals: Matt Lopez MD [Primary Care Provider] - Stand Alone Forms: Patient Portal/API
== END 2023-08-31 08:45 | disposition home or self-care (01) ==
PROVIDERS: Emergency Provider Emergency Medicine; Family Provider Family Medicine; PCP Family Medicine
DX: T83.091A Other mechanical complication of indwelling urethral catheter, initial encounter (principal)

== ENCOUNTER 2023-08-31 11:53 | Emergency (ER) | payer MEDICARE, SELFPAY ==
[2022-03-10 23:31] VITALS: BMI 40.0
[2022-03-11 12:11] VITALS: PULSE 64; RESP 22; O2SAT 98
[2023-08-31] VITALS (25 sets, daily range): BP systolic 92–134; BP diastolic 50–78; PULSE 69–74; RESP 12–24; TEMP 36.6; O2SAT 95–99; BMI 43.0
--- NOTE | 2023-08-31 12:05 | DI.RAD.S_ITS ---
PROCEDURE: XR CHEST 1V INDICATIONS: chest pain TECHNIQUE: One view of the chest was acquired. COMPARISON: [facility], CR, XR CHEST 1V, 01/16/2023, 11:05. FINDINGS: Surgical changes and devices: Stable cardiac pacer Lungs and pleura: Lungs are clear. No pleural effusions or pneumothorax. Mediastinum: Mediastinal contours appear normal. Heart is enlarged. Bones and chest wall: No suspicious bony lesions. Overlying soft tissues appear unremarkable. IMPRESSION: No acute cardiopulmonary abnormality is seen. Dictated by: Florina Salazar MD, PhD on 08/31/2023 at 12:52 Approved by: Florina Salazar MD, PhD on 08/31/2023 at 12:53
[2023-08-31 12:15] LABS: Add Manual Diff / Slide Review NO; Basophils Absolute Auto 0 /uL (0-100); Basophils Percent Auto 0.3 % (0-2); Eosinophils Absolute Auto 200 /uL (0-450); Eosinophils Percent Auto 2.2 % (2-4); Hematocrit 38.1 % (41-53); Lymphocytes Absolute Auto 800 /uL (1100-4500); Lymphocytes Percent Auto 10.7 % (25-40); Mean Corpuscular HGB Conc 34.1 % (30-36); Mean Corpuscular Hemoglobin 33.2 PG (26-34); Mean Corpuscular Volume 97.3 fL (80-100); Monocytes Absolute Auto 500 /uL (0-900); Monocytes Percent Auto 6.7 % (3-14); Neutrophils Absolute Auto 6000 /uL (1500-7000); Neutrophils Percent Auto 80.1 % (50-75); Platelet Count 273 X10^3/uL (150-400); Red Blood Cell Count 3.92 X10^6/uL (4.5-5.9); Red Cell Distribution Width 14.1 % (11.6-14.8); White Blood Cell Count 7.5 X10^3/uL (4.5-11.0)
[2023-08-31 12:21] LABS: INR 1.3 (0.9-1.3); Prothrombin Time 14.8 SECONDS (9.4-12.5)
[2023-08-31 12:24] LABS: PTT Partial Thromboplastin Tim 39 SECONDS (25.1-36.5)
[2023-08-31 12:26] LABS: Alanine Aminotransferase 17 IU/L (<50); Albumin 4.7 g/dL (3.5-5.0); Albumin Globulin Ratio 1.2 (1.0-2.8); Alkaline Phosphatase 92 U/L (38-126); Aspartate Aminotransferase 32 IU/L (17-59); BUN Creatinine Ratio 31.8 (6-22); Bilirubin Total 0.7 mg/dL (0.2-1.3); Blood Urea Nitrogen 67 mg/dL (9-20); Calcium 9.7 mg/dL (8.4-10.2); Carbon Dioxide 28 mmol/L (22-32); Chloride 106 mmol/L (98-107); Creatine Kinase 51 U/L (55-170); Estimated Glomerular Filt Rate 32 mL/min (>60); Globulin 3.8 g/dL (1.7-4.1); Glucose 96 mg/dL (80-110); HEMOLYSIS < 15 (0-50); Lipase 68 U/L (23-300); Potassium 4.7 mmol/L (3.4-5.1); Sodium 143 mmol/L (137-145); Total Protein 8.5 g/dL (6.3-8.2)
[2023-08-31 12:37] LABS: Troponin I 0.025 ng/mL (0.01-0.034)
[2023-08-31 14:20] LABS: Appearance Urine UA CLEAR; Bilirubin Urine UA NEGATIVE (NEGATIVE); Color Urine UA YELLOW; Glucose Urine UA NEGATIVE (Negative); Ketones Urine UA NEGATIVE (NEGATIVE); Leukocyte Esterase Urine UA TRACE (NEGATIVE); Nitrite Urine UA NEGATIVE (Negative); Occult Blood Urine UA 3+ (Negative); Protein Urine UA NEGATIVE (Negative); Urobilinogen Urine UA 0.2 E.U./dL (0.2)
[2023-08-31 14:22] LABS: Urine Volume 10mL (spun)
[2023-08-31 14:26] LABS: Bacteria Urine None Seen; Culture Indicated Urine Specimen Cultured; RBC Urine 1-5/HPF (0-5/HPF); Squamous Epithelial Cell Urine 0-1 /HPF (0-5/HPF); WBC Urine 0-1/HPF (0-5/HPF)
--- NOTE | 2023-08-31 14:36 | ED.DIZZY ---
HPI - Dizziness General Chief Complaint: Dizziness Stated Complaint: Hypotensive/Dizziness Time Seen by Provider: 08/31/23 13:56 Source: patient Mode of arrival: EMS Related Data Home Medications Medication Instructions Recorded Confirmed fluticasone propionate 50 1 spray intranasal BID PRN Allergy 10/14/21 08/09/23 mcg/actuation nasal Symptoms spray,suspension (Flonase Allergy Relief) multivitamin with minerals-folic 1 tab PO DAILY 02/17/22 08/09/23 acid 0.4 mg tablet spironolactone 25 mg tablet 12.5 mg PO DAILY 02/02/23 08/09/23 sacubitril 24 mg-valsartan 26 mg 1 tab PO BID 02/14/23 08/09/23 tablet (Entresto) gabapentin 300 mg capsule See Rx Instructions .Route .COMPLEX 08/09/23 08/09/23 Previous Rx's Medication Instructions Recorded tamsulosin 0.4 mg capsule 0.8 mg (2 x 0.4 mg) PO DAILY #180 01/25/23 caps apixaban 5 mg tablet (Eliquis) See Rx Instructions .Route 04/27/23 .COMPLEX #180 tabs oxycodone-acetaminophen 5 mg-325 1 tab PO BEDTIME PRN pain #20 tabs 05/18/23 mg tablet pantoprazole 40 mg tablet,delayed 40 mg PO DAILY #90 tabs 07/11/23 release Allergies Allergy/AdvReac Type Severity Reaction Status Date / Time latex [LATEX] Allergy Intermediate Rash Verified 08/31/23 14:13 MULTIPLE FOOD ALLERGIES Allergy Intermediate STOMACH Uncoded 08/31/23 14:13 CRAMPS,DIARRHEA Patient History Medical History History of pulmonary hypertension Presence of IVC filter Morbid obesity with BMI of 50.0-59.9, adult Pulmonary edema (06/2022) Peripheral neuropathy BPH (benign prostatic hyperplasia) GERD (gastroesophageal reflux disease) Thrombocytopenia Nonischemic cardiomyopathy Severe muscle deconditioning Acute respiratory failure with hypoxia Acute on chronic systolic heart failure Pneumonia Acute hypoxemic respiratory failure Pneumonia Vision disorder Hearing loss Sleep apnea (~1989) Fractures (~1989) Foot pain (~1989) Chronic back pain (~2009) Measles (~1959) Chicken pox (~1959) Irritable bowel syndrome (~2014) Low testosterone (~1989) Deep vein thrombosis (~1989) Atrial fibrillation (~2014) Surgical History Status post implantation of mitral valve leaflet clip (06/10/23) AICD (automatic cardioverter/defibrillator) present (06/13/22) Anesthesia History of back surgery History of tonsillectomy History of surgery (~2015) Rapelje filter in place (~1992) Social History household members: spouse Smoking Status: Never smoker alcohol intake: current Smoking Status: Never smoker alcohol intake frequency: 0-2 drinks per day Substance Use Type: does not use Exam Initial Vital Signs Initial Vital Signs: Vital Signs Pulse Rate 69 08/31/23 12:00 Respiratory Rate 12 08/31/23 12:00 Blood Pressure 92/51 L 08/31/23 12:00 Pulse Oximetry 99 08/31/23 12:00 Oxygen Delivery Method Room Air 08/31/23 12:00 Course Orders Ordered: ED Orders 08/31/23 11:45 Complete Blood Count AUTO DIFF Stat Comprehensive Metabolic Panel Stat Lipase Stat Magnesium Stat PTT Partial Thromboplastin Jacek Stat Prothrombin Time INR Stat Troponin & CK Cardiac Panel Stat 08/31/23 12:05 XR chest 1V Stat EKG-12 Lead Stat 08/31/23 14:00 UA Complete [Urinalysis and Microscopic] Stat Urine Culture Stat 08/31/23 14:46 US renal complete Stat Vital Signs Vital signs: Vital Signs - 8 hr 08/31/23 12:00 08/31/23 12:00 08/31/23 12:08 Temperature 97.9 F Pulse Rate 69 69 Respiratory Rate 12 16 Blood Pressure 92/51 L 97/50 L Pulse Oximetry 99 99 Oxygen Delivery Method Room Air Room Air 08/31/23 12:15 08/31/23 12:15 08/31/23 12:30 Temperature Pulse Rate 74 69 Respiratory Rate 24 20 Blood Pressure 98/54 L Pulse Oximetry 98 97 Oxygen Delivery Method 08/31/23 12:30 08/31/23 12:45 08/31/23 12:45 Temperature Pulse Rate 69 Respiratory Rate 15 Blood Pressure 104/57 L 98/55 L Pulse Oximetry 99 Oxygen Delivery Method 08/31/23 13:00 08/31/23 13:00 08/31/23 13:15 Temperature Pulse Rate 69 Respiratory Rate 16 Blood Pressure 98/57 L 99/55 L Pulse Oximetry 96 Oxygen Delivery Method 08/31/23 13:15 08/31/23 13:30 08/31/23 13:30 Temperature Pulse Rate 69 69 Respiratory Rate 16 16 Blood Pressure 97/55 L Pulse Oximetry 96 95 Oxygen Delivery Method 08/31/23 13:45 08/31/23 13:45 08/31/23 14:00 Temperature Pulse Rate 69 69 Respiratory Rate 12 18 Blood Pressure 97/54 L Pulse Oximetry 96 97 Oxygen Delivery Method Room Air 08/31/23 14:00 08/31/23 14:15 08/31/23 14:16 Temperature Pulse Rate 69 69 Respiratory Rate 17 15 Blood Pressure 93/55 L Pulse Oximetry 97 96 Oxygen Delivery Method 08/31/23 14:18 08/31/23 14:18 08/31/23 14:30 Temperature Pulse Rate 69 69 Respiratory Rate 16 20 Blood Pressure 129/73 Pulse Oximetry 97 97 Oxygen Delivery Method Room Air 08/31/23 14:30 08/31/23 14:45 08/31/23 14:45 Temperature Pulse Rate 69 Respiratory Rate 20 Blood Pressure 107/62 120/68 Pulse Oximetry 97 Oxygen Delivery Method 08/31/23 15:00 08/31/23 15:00 08/31/23 15:15 Temperature Pulse Rate 69 Respiratory Rate 22 Blood Pressure 134/70 92/50 L Pulse Oximetry 97 Oxygen Delivery Method Room Air 08/31/23 15:15 08/31/23 15:30 08/31/23 15:31 Temperature Pulse Rate 69 69 Respiratory Rate 17 18 Blood Pressure 132/60 Pulse Oximetry 98 97 Oxygen Delivery Method 08/31/23 15:31 08/31/23 15:45 08/31/23 15:45 Temperature Pulse Rate 69 70 Respiratory Rate 18 24 Blood Pressure 105/58 L Pulse Oximetry 98 96 Oxygen Delivery Method 08/31/23 16:00 08/31/23 16:00 08/31/23 16:15 Temperature Pulse Rate 71 Respiratory Rate 13 Blood Pressure 96/55 L 116/75 Pulse Oximetry 95 Oxygen Delivery Method 08/31/23 16:15 08/31/23 16:30 08/31/23 16:30 Temperature Pulse Rate 69 69 Respiratory Rate 17 12 Blood Pressure 119/77 Pulse Oximetry 97 96 Oxygen Delivery Method 08/31/23 16:45 08/31/23 16:45 08/31/23 17:00 Temperature Pulse Rate 69 69 Respiratory Rate Blood Pressure 118/78 Pulse Oximetry 97 95 Oxygen Delivery Method 08/31/23 17:00 Temperature Pulse Rate Respiratory Rate Blood Pressure 115/73 Pulse Oximetry Oxygen Delivery Method MDM - Dizziness Lab Data 08/31/23 11:45 08/31/23 11:45 Labs: Lab Results 08/31/23 08/31/23 Range/Units 11:45 14:00 WBC 7.5 (4.5-11.0) X10^3/uL RBC 3.92 L (4.5-5.9) X10^6/uL Hgb 13.0 L (13.5-17.5) g/dL Hct 38.1 L (41-53) % MCV 97.3 (80-100) fL MCH 33.2 (26-34) PG MCHC 34.1 (30-36) % RDW 14.1 (11.6-14.8) % Plt Count 273 (150-400) X10^3/uL Neut % (Auto) 80.1 H (50-75) % Lymph % (Auto) 10.7 L (25-40) % [place] % (Auto) 6.7 (3-14) % Eos % (Auto) 2.2 (2-4) % Baso % (Auto) 0.3 (0-2) % Neut # (Auto) 6000 (5664-8996) /uL Lymph # (Auto) 800 L (6107-0522) /uL [place] # (Auto) 500 (0-900) /uL Eos # (Auto) 200 (0-450) /uL Baso # (Auto) 0 (0-100) /uL PT 14.8 H (9.4-12.5) SECONDS INR 1.3 (0.9-1.3) APTT 39 H (25.1-36.5) SECONDS Sodium 143 (137-145) mmol/L Potassium 4.7 (3.4-5.1) mmol/L Chloride 106 (98-107) mmol/L Carbon Dioxide 28 (22-32) mmol/L BUN 67 H (9-20) mg/dL Creatinine 2.11 H (0.66-1.25) mg/dL Estimated GFR 32 L (>60) mL/min BUN/Creatinine Ratio 31.8 H (6-22) Glucose 96 (80-110) mg/dL Calcium 9.7 (8.4-10.2) mg/dL Magnesium 2.0 (1.6-2.3) mg/dL Total Bilirubin 0.7 (0.2-1.3) mg/dL AST 32 (17-59) IU/L ALT 17 (<50) IU/L Alkaline Phosphatase 92 (38-126) U/L Total Creatine Kinase 51 L (55-170) U/L Troponin I 0.025 (0.01-0.034) ng/mL Total Protein 8.5 H (6.3-8.2) g/dL Albumin 4.7 (3.5-5.0) g/dL Globulin 3.8 (1.7-4.1) g/dL Albumin/Globulin Ratio 1.2 (1.0-2.8) Lipase 68 (23-300) U/L Urine Color Yellow Urine Appearance Clear Urine pH 5.0 (4.5-8.0) Ur Specific [place] 1.010 (1.000-1.035) Urine Protein Negative (Negative) Urine Glucose (UA) Negative (Negative) g/dL Urine Ketones Negative (NEGATIVE) Urine Occult Blood 3+ H (Negative) Urine Nitrate Negative (Negative) Urine Bilirubin Negative (NEGATIVE) Urine Urobilinogen 0.2 (0.2) E.U./dL Ur Leukocyte Esterase Trace H (NEGATIVE) Urine RBC 1-5/hpf (0-5/HPF) Urine WBC 0-1/hpf (0-5/HPF) Ur Squamous Epith Cells 0-1 /hpf (0-5/HPF) Urine Bacteria None seen (None) Ur Culture Indicated? Specimen cultured Vol Urine Centrifuged 10ml (spun) Discharge Plan Departure Patient Disposition: Home Clinical Impression: Dizziness Activity Restrictions/Additional Instructions: Please follow-up with your physician to be rechecked your renal function is elevated today. This maybe from dehydration but you should make sure you are kidneys are improving with hydration. If you are creatinine continues to be elevated they may need to stop 1 of your blood pressure medications as these can affect your kidneys. In the future do not drink alcohol when you take your narcotic pain medication. Please return for fevers new or worsening abdominal back or flank pain, if you are catheter is not draining if you of persistent vomiting, black or bloody stools, lightheadedness or passing out or other new or concerning changes. Prescriptions: No Action Entresto 24-26 mg tablet 1 tab PO BID spironolactone 25 mg tablet 12.5 mg PO DAILY oxycodone-acetaminophen 5-325 mg tablet 1 tab PO BEDTIME PRN (Reason: pain) Qty: 20 0RF tamsulosin 0.4 mg capsule 0.8 mg PO DAILY Qty: 180 3RF Eliquis 5 mg tablet See Rx Instructions .ROUTE .COMPLEX Qty: 180 3RF Dose Instruction: TAKE 1 TABLET TWICE A DAY Rx Instructions: TAKE 1 TABLET TWICE A DAY pantoprazole 40 mg tablet,delayed release (DR/EC) 40 mg PO DAILY Qty: 90 1RF fluticasone propionate [Flonase Allergy Relief] 50 mcg/actuation spray,suspension 1 spray intranasal BID PRN (Reason: Allergy Symptoms) Rx Instructions: administer into each nostril gabapentin 300 mg capsule See Rx Instructions .ROUTE .COMPLEX Rx Instructions: 300mg in am and 600mg at bedtime. multivit with min-folic acid 0.4 mg Tablet 1 tab PO DAILY Referrals: Matt Lopez MD [Primary Care Provider] - Stand Alone Forms: Patient Portal/API
--- NOTE | 2023-08-31 14:47 | ED.DIZZY ---
HPI - Dizziness General Chief Complaint: Dizziness Stated Complaint: Hypotensive/Dizziness Time Seen by Provider: 08/31/23 13:56 Source: patient, family, RN notes reviewed and old records reviewed Mode of arrival: EMS History of Present Illness HPI Narrative: 73-year-old male history of AFib on Eliquis, DVT, sleep apnea, CHF with BPH with urinary retention on August 19 had Pedroza catheter placed, patient was seen here today earlier this morning had leakage around his catheter which was replaced with a new 1 it has been draining patient home was having some discomfort in the suprapubic area he took a hydrocodone and had a half shot of vodka with his breakfast. He did not had a shower he was seated in his shower chair and afterwards felt very dizzy, no syncope but did feel like he might pass out, no chest pain or shortness of breath denies any nausea or vomiting. He took an Imodium because he thought he might have some diarrhea but has not. They state his catheter does seem to be draining although more so after receiving a L of fluids. No blood or other changes have been appreciated. Patient is feeling improved at this time. They have set up an appointment with Urology for September 10. notes that he did have renal failure and was on dialysis when he was hospitalized at [facility] for 85 days for respiratory illness after having acquiring bacterial pneumonia while on a trip in [place]. Patient has a allergies to latex. He is still on Flomax. He does take medications for hypertension, CHF as well as anticoagulant. Patient has also had mitral valve and tricuspid clips at [facility]. Family also notes his torsemide has been increased to 40 mg in his swelling in his extremities has significantly improved. Related Data Home Medications Medication Instructions Recorded Confirmed fluticasone propionate 50 1 spray intranasal BID PRN Allergy 10/14/21 08/09/23 mcg/actuation nasal Symptoms spray,suspension (Flonase Allergy Relief) multivitamin with minerals-folic 1 tab PO DAILY 02/17/22 08/09/23 acid 0.4 mg tablet spironolactone 25 mg tablet 12.5 mg PO DAILY 02/02/23 08/09/23 sacubitril 24 mg-valsartan 26 mg 1 tab PO BID 02/14/23 08/09/23 tablet (Entresto) gabapentin 300 mg capsule See Rx Instructions .Route .COMPLEX 08/09/23 08/09/23 Previous Rx's Medication Instructions Recorded tamsulosin 0.4 mg capsule 0.8 mg (2 x 0.4 mg) PO DAILY #180 01/25/23 caps apixaban 5 mg tablet (Eliquis) See Rx Instructions .Route 04/27/23 .COMPLEX #180 tabs oxycodone-acetaminophen 5 mg-325 1 tab PO BEDTIME PRN pain #20 tabs 05/18/23 mg tablet pantoprazole 40 mg tablet,delayed 40 mg PO DAILY #90 tabs 07/11/23 release Allergies Allergy/AdvReac Type Severity Reaction Status Date / Time latex [LATEX] Allergy Intermediate Rash Verified 08/31/23 14:13 MULTIPLE FOOD ALLERGIES Allergy Intermediate STOMACH Uncoded 08/31/23 14:13 CRAMPS,DIARRHEA Review of Systems Review of Systems ROS Unobtainable: All systems reviewed & are unremarkable except as noted in HPI and below Patient History Medical History History of pulmonary hypertension Presence of IVC filter Morbid obesity with BMI of 50.0-59.9, adult Pulmonary edema (06/2022) Peripheral neuropathy BPH (benign prostatic hyperplasia) GERD (gastroesophageal reflux disease) Thrombocytopenia Nonischemic cardiomyopathy Severe muscle deconditioning Acute respiratory failure with hypoxia Acute on chronic systolic heart failure Pneumonia Acute hypoxemic respiratory failure Pneumonia Vision disorder Hearing loss Sleep apnea (~1989) Fractures (~1989) Foot pain (~1989) Chronic back pain (~2009) Measles (~1959) Chicken pox (~1959) Irritable bowel syndrome (~2014) Low testosterone (~1989) Deep vein thrombosis (~1989) Atrial fibrillation (~2014) Surgical History Status post implantation of mitral valve leaflet clip (06/10/23) AICD (automatic cardioverter/defibrillator) present (06/13/22) Anesthesia History of back surgery History of tonsillectomy History of surgery (~2015) Dawson filter in place (~1992) Social History household members: spouse Smoking Status: Never smoker alcohol intake: current Smoking Status: Never smoker alcohol intake frequency: 0-2 drinks per day Substance Use Type: does not use Exam Narrative Exam Narrative: GENERAL: Alert and oriented x three, elderly male in mild distress. HEENT: Head normocephalic, atraumatic, EOMI, pupils reactive, face symmetric, moist mucous membranes NECK: Supple, full range of motion CARDIOVASCULAR: Regular rate and rhythm without murmurs, rubs or gallops. RESPIRATORY: Breath sounds equal bilaterally, no wheezes rales or rhonchi. ABDOMEN: Soft, nontender. Normoactive bowel sounds all 4 quadrants. No guarding or rebound, rigidity, no mass : No CVA tenderness, Pedroza catheter in place draining yellow urine. EXTREMITIES: Normal range of motion, no clubbing or edema. Neurovascularly intact NEUROLOGICAL: Cranial nerves II through XII grossly intact. Moving all extremities SKIN: Warm, dry, no petechiae, no rashes or lesions. Initial Vital Signs Initial Vital Signs: Vital Signs Pulse Rate 69 08/31/23 12:00 Respiratory Rate 12 08/31/23 12:00 Blood Pressure 92/51 L 08/31/23 12:00 Pulse Oximetry 99 08/31/23 12:00 Oxygen Delivery Method Room Air 08/31/23 12:00 Course Orders Ordered: ED Orders 08/31/23 11:45 Complete Blood Count AUTO DIFF Stat Comprehensive Metabolic Panel Stat Lipase Stat Magnesium Stat PTT Partial Thromboplastin Jacek Stat Prothrombin Time INR Stat Troponin & CK Cardiac Panel Stat 08/31/23 12:05 XR chest 1V Stat EKG-12 Lead Stat 08/31/23 14:00 UA Complete [Urinalysis and Microscopic] Stat Urine Culture Stat 08/31/23 14:46 US renal complete Stat Vital Signs Vital signs: Vital Signs - 8 hr 08/31/23 12:00 08/31/23 12:00 08/31/23 12:08 Temperature 97.9 F Pulse Rate 69 69 Respiratory Rate 12 16 Blood Pressure 92/51 L 97/50 L Pulse Oximetry 99 99 Oxygen Delivery Method Room Air Room Air 08/31/23 12:15 08/31/23 12:15 08/31/23 12:30 Temperature Pulse Rate 74 69 Respiratory Rate 24 20 Blood Pressure 98/54 L Pulse Oximetry 98 97 Oxygen Delivery Method 08/31/23 12:30 08/31/23 12:45 08/31/23 12:45 Temperature Pulse Rate 69 Respiratory Rate 15 Blood Pressure 104/57 L 98/55 L Pulse Oximetry 99 Oxygen Delivery Method 08/31/23 13:00 08/31/23 13:00 08/31/23 13:15 Temperature Pulse Rate 69 Respiratory Rate 16 Blood Pressure 98/57 L 99/55 L Pulse Oximetry 96 Oxygen Delivery Method 08/31/23 13:15 08/31/23 13:30 08/31/23 13:30 Temperature Pulse Rate 69 69 Respiratory Rate 16 16 Blood Pressure 97/55 L Pulse Oximetry 96 95 Oxygen Delivery Method 08/31/23 13:45 08/31/23 13:45 08/31/23 14:00 Temperature Pulse Rate 69 69 Respiratory Rate 12 18 Blood Pressure 97/54 L Pulse Oximetry 96 97 Oxygen Delivery Method Room Air 08/31/23 14:00 08/31/23 14:15 08/31/23 14:16 Temperature Pulse Rate 69 69 Respiratory Rate 17 15 Blood Pressure 93/55 L Pulse Oximetry 97 96 Oxygen Delivery Method 08/31/23 14:18 08/31/23 14:18 08/31/23 14:30 Temperature Pulse Rate 69 69 Respiratory Rate 16 20 Blood Pressure 129/73 Pulse Oximetry 97 97 Oxygen Delivery Method Room Air 08/31/23 14:30 08/31/23 14:45 08/31/23 14:45 Temperature Pulse Rate 69 Respiratory Rate 20 Blood Pressure 107/62 120/68 Pulse Oximetry 97 Oxygen Delivery Method 08/31/23 15:00 08/31/23 15:00 08/31/23 15:15 Temperature Pulse Rate 69 Respiratory Rate 22 Blood Pressure 134/70 92/50 L Pulse Oximetry 97 Oxygen Delivery Method Room Air 08/31/23 15:15 08/31/23 15:30 08/31/23 15:31 Temperature Pulse Rate 69 69 Respiratory Rate 17 18 Blood Pressure 132/60 Pulse Oximetry 98 97 Oxygen Delivery Method 08/31/23 15:31 08/31/23 15:45 08/31/23 15:45 Temperature Pulse Rate 69 70 Respiratory Rate 18 24 Blood Pressure 105/58 L Pulse Oximetry 98 96 Oxygen Delivery Method 08/31/23 16:00 08/31/23 16:00 08/31/23 16:15 Temperature Pulse Rate 71 Respiratory Rate 13 Blood Pressure 96/55 L 116/75 Pulse Oximetry 95 Oxygen Delivery Method 08/31/23 16:15 08/31/23 16:30 08/31/23 16:30 Temperature Pulse Rate 69 69 Respiratory Rate 17 12 Blood Pressure 119/77 Pulse Oximetry 97 96 Oxygen Delivery Method 08/31/23 16:45 08/31/23 16:45 08/31/23 17:00 Temperature Pulse Rate 69 69 Respiratory Rate Blood Pressure 118/78 Pulse Oximetry 97 95 Oxygen Delivery Method 08/31/23 17:00 Temperature Pulse Rate Respiratory Rate Blood Pressure 115/73 Pulse Oximetry Oxygen Delivery Method MDM - Dizziness Lab Data 08/31/23 11:45 08/31/23 11:45 Labs: Lab Results 08/31/23 08/31/23 Range/Units 11:45 14:00 WBC 7.5 (4.5-11.0) X10^3/uL RBC 3.92 L (4.5-5.9) X10^6/uL Hgb 13.0 L (13.5-17.5) g/dL Hct 38.1 L (41-53) % MCV 97.3 (80-100) fL MCH 33.2 (26-34) PG MCHC 34.1 (30-36) % RDW 14.1 (11.6-14.8) % Plt Count 273 (150-400) X10^3/uL Neut % (Auto) 80.1 H (50-75) % Lymph % (Auto) 10.7 L (25-40) % [place] % (Auto) 6.7 (3-14) % Eos % (Auto) 2.2 (2-4) % Baso % (Auto) 0.3 (0-2) % Neut # (Auto) 6000 (9981-2526) /uL Lymph # (Auto) 800 L (4024-0922) /uL [place] # (Auto) 500 (0-900) /uL Eos # (Auto) 200 (0-450) /uL Baso # (Auto) 0 (0-100) /uL PT 14.8 H (9.4-12.5) SECONDS INR 1.3 (0.9-1.3) APTT 39 H (25.1-36.5) SECONDS Sodium 143 (137-145) mmol/L Potassium 4.7 (3.4-5.1) mmol/L Chloride 106 (98-107) mmol/L Carbon Dioxide 28 (22-32) mmol/L BUN 67 H (9-20) mg/dL Creatinine 2.11 H (0.66-1.25) mg/dL Estimated GFR 32 L (>60) mL/min BUN/Creatinine Ratio 31.8 H (6-22) Glucose 96 (80-110) mg/dL Calcium 9.7 (8.4-10.2) mg/dL Magnesium 2.0 (1.6-2.3) mg/dL Total Bilirubin 0.7 (0.2-1.3) mg/dL AST 32 (17-59) IU/L ALT 17 (<50) IU/L Alkaline Phosphatase 92 (38-126) U/L Total Creatine Kinase 51 L (55-170) U/L Troponin I 0.025 (0.01-0.034) ng/mL Total Protein 8.5 H (6.3-8.2) g/dL Albumin 4.7 (3.5-5.0) g/dL Globulin 3.8 (1.7-4.1) g/dL Albumin/Globulin Ratio 1.2 (1.0-2.8) Lipase 68 (23-300) U/L Urine Color Yellow Urine Appearance Clear Urine pH 5.0 (4.5-8.0) Ur Specific [place] 1.010 (1.000-1.035) Urine Protein Negative (Negative) Urine Glucose (UA) Negative (Negative) g/dL Urine Ketones Negative (NEGATIVE) Urine Occult Blood 3+ H (Negative) Urine Nitrate Negative (Negative) Urine Bilirubin Negative (NEGATIVE) Urine Urobilinogen 0.2 (0.2) E.U./dL Ur Leukocyte Esterase Trace H (NEGATIVE) Urine RBC 1-5/hpf (0-5/HPF) Urine WBC 0-1/hpf (0-5/HPF) Ur Squamous Epith Cells 0-1 /hpf (0-5/HPF) Urine Bacteria None seen (None) Ur Culture Indicated? Specimen cultured Vol Urine Centrifuged 10ml (spun) Imaging Data Chest x-ray: Radiologist's Impression: [address] [address] XRay Report Signed Patient: Anderson Duarte MR#: [id number] : 1950 Acct:[id number] Age/Sex: 73 / M Date of Service: 08/31/23 Loc: ED Accession Number: [id number] Procedure: XR chest 1V Ordering Provider: Yahaira Mckeon D.O. PROCEDURE: XR CHEST 1V INDICATIONS: chest pain TECHNIQUE: One view of the chest was acquired. COMPARISON: [facility], CR, XR CHEST 1V, 01/16/2023, 11:05. FINDINGS: Surgical changes and devices: Stable cardiac pacer Lungs and pleura: Lungs are clear. No pleural effusions or pneumothorax. Mediastinum: Mediastinal contours appear normal. Heart is enlarged. Bones and chest wall: No suspicious bony lesions. Overlying soft tissues appear unremarkable. IMPRESSION: No acute cardiopulmonary abnormality is seen. Dictated by: Florina Salazar MD, PhD on 08/31/2023 at 12:52 Approved by: Florina Salazar MD, PhD on 08/31/2023 at 12:53 renal US: Radiologist's Impression: [address] [address] Ultrasound Report? Signed Patient: Anderson Duarte MR#: [id number] : 1950 Acct:[id number] Age/Sex: 73 / M Date of Service: 08/31/23 Loc: ED Accession Number: [id number]? ? Procedure: US renal complete Ordering Provider: Yahaira Mckeon D.O. PROCEDURE:? US RENAL COMPLETE ? INDICATIONS:? acute on chronic renal, ?obstruction vs dehydration ? TECHNIQUE:?? Real-time scanning was performed of the kidneys and bladder, with image documentation.?? ? COMPARISON:? CT, CT ABDOMEN PELVIS WO CON, 11/19/2019, 11:06. ? FINDINGS:?? ? Kidneys:? .? Right kidney measures 10.6 cm long; left kidney measures 10.2 cm long.?? Right renal cortical thickness is 1.4 cm; left renal cortical thickness is 1.5 cm.? Renal? cortical echotexture is normal.? No hydronephrosis or nephrolithiasis.? No suspicious? solid mass lesions.?? ? Bladder:? Pre-void bladder volume is 2.9 mL.? Post-void residual is not assessed.?? Pre-void images demonstrate no intraluminal masses or stones.? On pre-void images,? neither ureteral jets are noted with color Doppler interrogation.? (Of note, ureteral? jets may not be detectable in up to 25% of cases due to insufficient differences in? specific gravity between ureteral and bladder urine).?? ? Miscellaneous:? No free pelvic fluid.?? ? IMPRESSION:?? ? No obstruction. ? ? Dictated by: Shaye Spicer M.D. on 08/31/2023 at 16:02? ? ? Approved by: Shaye Spicer M.D. on 08/31/2023 at 16:03? ? renal us: Radiologist's Impression: Anderson Duarte??73??M??1950 ? Allergy/Adv: latex, [MULTIPLE FOOD ALLERGIES] (More??) Close Renal Ultrasound (Signed) Shaye Spicer - 08/31/23 Chest X-Ray (Signed) Florina Salazar - 08/31/23 Vascular Ultrasound (Signed) Bandar Flores - 08/16/23 Chest X-Ray (Signed) Kendy Cox - 01/16/23 Chest CTA (Signed) Wiliam Casper - 01/16/23 Chest X-Ray (Signed) Wiliam Casper - 01/16/23 Chest X-Ray (Signed) Reymundo Kong - 05/23/22 Telemetry Strips 03/10/22 Telemetry Strips 03/10/22 Chest X-Ray (Signed) Yousif Virgen - 03/10/22 Echocardiogram Ultrasound (Cancelled) 02/17/22 Chest X-Ray (Signed) Matt Izaguirre - 02/16/22 DI Result CC 02/10/22 Foot X-Ray (Signed) Merissa Carbajal - 11/22/21 Foot X-Ray (Signed) Merissa Carbajal - 11/22/21 Foot X-Ray (Signed) Sasha Zelaya - 10/22/21 DI Result CC 03/19/21 DI Result CC 03/19/21 DI Result CC 02/24/20 Chest X-Ray (Signed) Toby Prabhakar - 11/27/19 Abdomen/Pelvis CT (Signed) Yudy Casey - 11/19/19 Vascular Ultrasound (Signed) Yudy Casey - 10/17/17 Launch?[address] [address] Ultrasound Report Signed Patient: Anderson Duarte MR#: [id number] : 1950 Acct:[id number] Age/Sex: 73 / M Date of Service: 08/31/23 Loc: ED Accession Number: [id number] Procedure: US renal complete Ordering Provider: Yahaira Mckeon D.O. PROCEDURE: US RENAL COMPLETE INDICATIONS: acute on chronic renal, ?obstruction vs dehydration TECHNIQUE: Real-time scanning was performed of the kidneys and bladder, with image documentation. COMPARISON: CT, CT ABDOMEN PELVIS WO CON, 11/19/2019, 11:06. FINDINGS: Kidneys: . Right kidney measures 10.6 cm long; left kidney measures 10.2 cm long. Right renal cortical thickness is 1.4 cm; left renal cortical thickness is 1.5 cm. Renal cortical echotexture is normal. No hydronephrosis or nephrolithiasis. No suspicious solid mass lesions. Bladder: Pre-void bladder volume is 2.9 mL. Post-void residual is not assessed. Pre-void images demonstrate no intraluminal masses or stones. On pre-void images, neither ureteral jets are noted with color Doppler interrogation. (Of note, ureteral jets may not be detectable in up to 25% of cases due to insufficient differences in specific gravity between ureteral and bladder urine). Miscellaneous: No free pelvic fluid. IMPRESSION: No obstruction. Dictated by: Shaye Spicer M.D. on 08/31/2023 at 16:02 Approved by: Shaye Spicer M.D. on 08/31/2023 at 16:03 ECG Data Attestation: I personally reviewed and interpreted this ECG as follows: Interpretation: Ventricularly paced rhythm rate of 70 QRS of 158 QTC 490. No acute ST changes appreciated. MDM Narrative Medical decision making narrative: 73-year-old male who presents with complaint of dizziness, hypotension has been improving here in the department with fluids. Patient was seen earlier today for catheter malfunction and had fluid drainage around the catheter and was replaced has been draining well since. Patient returned home then take his regular medications including his blood pressure medication, had half a shot of vodka as well as took a [place] as he was having some discomfort in his suprapubic region. Patient then while taking a shower started to feel dizzy but did not have any syncope. Had reported systolic pressure of 80 at. Was hypotensive here initially has been improving over time after a L of fluids. Patient's labs show normal white count 7.5 hemoglobin of 13, creatinine is elevated today at 2.11 was 1.24 and 08/20/2023 with a BUN of 67, there maybe a component of dehydration but with his Pedroza catheter malfunction could have an portion of obstructive [place] and renal ultrasound was obtained, electrolytes shows sodium 143 potassium of 4 7 chloride of 106 CO2 of 28, LFTs are negative troponin was obtained at 0.025 with no chest pain or shortness of breath. Chest x-ray was negative, EKG shows a paced rhythm. UA shows blood as well as leukocyte esterase, patient has 1-5 RBCs 0-1 white cells, 1 squamous no bacteria. Was sent for culture. Renal ultrasound showed showed no obstructive changes. Patient has felt improved after fluids, his blood pressure has improved as well. Discussed with patient to avoid narcotics in conjunction with alcohol. We will await culture results with sarcoid starting any antibiotics. Did encourage patient to follow up to have his renal function rechecked. There is likely component of dehydration as well. Discharge Plan Departure Patient Disposition: Home Clinical Impression: Dizziness Activity Restrictions/Additional Instructions: Please follow-up with your physician to be rechecked your renal function is elevated today. This maybe from dehydration but you should make sure you are kidneys are improving with hydration. If you are creatinine continues to be elevated they may need to stop 1 of your blood pressure medications as these can affect your kidneys. In the future do not drink alcohol when you take your narcotic pain medication. Please return for fevers new or worsening abdominal back or flank pain, if you are catheter is not draining if you of persistent vomiting, black or bloody stools, lightheadedness or passing out or other new or concerning changes. Prescriptions: No Action Entresto 24-26 mg tablet 1 tab PO BID spironolactone 25 mg tablet 12.5 mg PO DAILY oxycodone-acetaminophen 5-325 mg tablet 1 tab PO BEDTIME PRN (Reason: pain) Qty: 20 0RF tamsulosin 0.4 mg capsule 0.8 mg PO DAILY Qty: 180 3RF Eliquis 5 mg tablet See Rx Instructions .ROUTE .COMPLEX Qty: 180 3RF Dose Instruction: TAKE 1 TABLET TWICE A DAY Rx Instructions: TAKE 1 TABLET TWICE A DAY pantoprazole 40 mg tablet,delayed release (DR/EC) 40 mg PO DAILY Qty: 90 1RF fluticasone propionate [Flonase Allergy Relief] 50 mcg/actuation spray,suspension 1 spray intranasal BID PRN (Reason: Allergy Symptoms) Rx Instructions: administer into each nostril gabapentin 300 mg capsule See Rx Instructions .ROUTE .COMPLEX Rx Instructions: 300mg in am and 600mg at bedtime. multivit with min-folic acid 0.4 mg Tablet 1 tab PO DAILY Referrals: Matt Lopez MD [Primary Care Provider] - Stand Alone Forms: Patient Portal/API
== END 2023-08-31 17:10 | disposition home or self-care (01) ==
PROVIDERS: Emergency Provider Emergency Medicine; Family Provider Family Medicine; PCP Family Medicine
DX: R42 Dizziness and giddiness (principal); R07.9 Chest pain, unspecified
CPT/HCPCS: 36415; 71045; 76770; 80053; 81001; 82550; 83690; 83735; 84484; 85025; 85610; 85730; 87077; 87086; 87186; 93005; 99283; 99284

== ENCOUNTER 2023-09-24 04:13 | Emergency (ER) | payer MEDICARE, SELFPAY ==
[2022-03-10 23:31] VITALS: BMI 40.0
[2022-03-11 12:11] VITALS: PULSE 64; RESP 22; O2SAT 98
[2023-09-24] VITALS (11 sets, daily range): BP systolic 97–118; BP diastolic 56–73; PULSE 65–82; RESP 17; O2SAT 95–99; BMI 40.9
--- NOTE | 2023-09-24 04:37 | ED.MALEGU ---
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 DVT, sleep apnea, CHF with chronic urinary retention with Pedroza catheter placed and following with Urology. Patient presents with decreased urine output. His states past 24 hours he has only had about 400 mL out total. They note that he was having good urine output and actually had an extra dose of torsemide several days ago, had quite a bit of output and even overflowed his bag. Yesterday had about 1600 mL out for the day. They state yesterday morning his caregiver empty 200 mL in the morning and then his states he has only had about 200 mL out since then into today. Urine is dark yellow. They have not noticed any leakage or blockages. They have not noticed any hematuria or clots. No reports of fevers. He denies any pain but is states he was sort of moaning and touching in his abdomen asleep. He states his left side feels cormier. Patient denies any flank pain. Denies any nausea or vomiting. States he has been a little constipated for the past 24 but has had bowel movements yesterday that he described as formed. Had just from small liquidy stool today. Has had a prior history of renal failure and on dialysis when hospitalized at [facility] for 85 days for respiratory illness after acquiring bacterial pneumonia on a trip to [place]. Related Data Home Medications Medication Instructions Recorded Confirmed multivitamin with minerals-folic 1 tab PO DAILY 02/17/22 09/20/23 acid 0.4 mg tablet spironolactone 25 mg tablet 12.5 mg PO DAILY 02/02/23 09/20/23 sacubitril 24 mg-valsartan 26 mg 1 tab PO BID 02/14/23 09/20/23 tablet (Entresto) epinephrine 0.3 mg/0.3 mL 0.3 mg IM ONCE 09/11/23 09/20/23 injection, auto-injector hydrocodone 5 mg-acetaminophen 325 1 tab PO BID PRN 09/11/23 09/20/23 mg tablet lactobacillus combination no.9 4 4,000 mmu cells PO DAILY 09/11/23 09/20/23 billion cell capsule (Adult 50 Plus Probiotic) melatonin 10 mg capsule 10 mg PO BEDTIME PRN 09/11/23 09/20/23 Previous Rx's Medication Instructions Recorded tamsulosin 0.4 mg capsule 0.8 mg (2 x 0.4 mg) PO DAILY #180 01/25/23 caps apixaban 5 mg tablet (Eliquis) See Rx Instructions .Route 04/27/23 .COMPLEX #180 tabs pantoprazole 40 mg tablet,delayed 40 mg PO DAILY #90 tabs 07/11/23 release gabapentin 300 mg capsule See Rx Instructions .Route 09/18/23 .COMPLEX #270 caps ciprofloxacin HCl 250 mg tablet 250 mg PO BID #6 tabs 09/19/23 Allergies Allergy/AdvReac Type Severity Reaction Status Date / Time latex [LATEX] Allergy Intermediate Rash Verified 09/05/23 14:00 MULTIPLE FOOD ALLERGIES Allergy Intermediate STOMACH Uncoded 09/05/23 14:00 CRAMPS,DIARRHEA Review of Systems <Yahaira Mckeon DO - Last Filed: 09/28/23 09:47> Review of Systems ROS Unobtainable: All systems reviewed & are unremarkable except as noted in HPI and below Patient History <Yahaira Mckeon DO - Last Filed: 09/28/23 09:47> Medical History History of sepsis History of kidney stones Urine retention History of pulmonary hypertension Presence of IVC filter Morbid obesity with BMI of 50.0-59.9, adult Pulmonary edema (06/2022) Peripheral neuropathy BPH (benign prostatic hyperplasia) GERD (gastroesophageal reflux disease) Thrombocytopenia Nonischemic cardiomyopathy Severe muscle deconditioning Acute respiratory failure with hypoxia Acute on chronic systolic heart failure Pneumonia Acute hypoxemic respiratory failure Pneumonia Vision disorder Hearing loss Sleep apnea (~1989) Fractures (~1989) Foot pain (~1989) Chronic back pain (~2009) Measles (~1959) Chicken pox (~1959) Irritable bowel syndrome (~2014) Low testosterone (~1989) Deep vein thrombosis (~1989) Atrial fibrillation (~2014) Surgical History Status post implantation of mitral valve leaflet clip (06/10/23) AICD (automatic cardioverter/defibrillator) present (06/13/22) Anesthesia History of back surgery History of tonsillectomy History of surgery (~2015) Mehdi filter in place (~1992) Social History household members: spouse Smoking Status: Never smoker alcohol intake: current Smoking Status: Never smoker alcohol intake frequency: 0-2 drinks per day Substance Use Type: does not use Exam <Yahaira Mckeon DO - Last Filed: 09/28/23 09:47> Narrative Exam Narrative: GENERAL: Alert and oriented x three, obese elderly male, mild distress. HEENT: Head normocephalic, atraumatic, EOMI, pupils reactive, face symmetric, moist mucous membranes NECK: Supple, full range of motion CARDIOVASCULAR: Regular rate and rhythm without murmurs, rubs or gallops. RESPIRATORY: Breath sounds equal bilaterally, no wheezes rales or rhonchi. ABDOMEN: Soft, nontender. Normoactive bowel sounds all 4 quadrants. No guarding or rebound, rigidity, no mass : No CVA tenderness, catheter in place appears to have dark yellow urine in the visualized in the catheter itself. No drainage or leakage around. No clots or hematuria. Male: normal external examination, no penile discharge or lesions, testicles non-tender. EXTREMITIES: Normal range of motion, no clubbing or edema. Neurovascularly intact NEUROLOGICAL: Cranial nerves II through XII grossly intact. Moving all extremities SKIN: Warm, dry, no petechiae, no rashes or lesions. Initial Vital Signs Initial Vital Signs: Vital Signs Pulse Rate 82 09/24/23 04:28 Respiratory Rate 17 09/24/23 04:28 Blood Pressure 112/56 L 09/24/23 04:28 Pulse Oximetry 95 09/24/23 04:28 Oxygen Delivery Method Room Air 09/24/23 04:28 <Ana Romero DO - Last Filed: 09/24/23 08:05> Initial Vital Signs Initial Vital Signs: Vital Signs Pulse Rate 82 09/24/23 04:28 Respiratory Rate 17 09/24/23 04:28 Blood Pressure 112/56 L 09/24/23 04:28 Pulse Oximetry 95 09/24/23 04:28 Oxygen Delivery Method Room Air 09/24/23 04:28 Course <Yahaira Mckeon, DO - Last Filed: 09/28/23 09:47> Orders Ordered: Discontinued Medications Sodium Chloride (Normal Saline 0.9%) 1,000 mls @ 150 mls/hr IV CONT DONNELL Last Admin: 09/24/23 06:22 Dose: Not Given Documented By: AB Sodium Chloride (Normal Saline 0.9%) 1,000 mls @ 150 mls/hr IV CONT DONNELL Last Infusion: 09/24/23 08:17 Dose: Infused Documented By: Admin: 09/24/23 06:21 Dose: 150 mls/hr Documented By: AB Vital Signs Vital signs: Vital Signs - 8 hr 09/24/23 04:28 09/24/23 04:45 09/24/23 05:00 Pulse Rate 82 71 71 Respiratory Rate 17 Blood Pressure 112/56 L Pulse Oximetry 95 98 97 Oxygen Delivery Method Room Air 09/24/23 05:00 09/24/23 05:22 09/24/23 05:22 Pulse Rate 66 Respiratory Rate Blood Pressure 97/59 L 104/60 Pulse Oximetry 96 Oxygen Delivery Method 09/24/23 05:30 09/24/23 05:31 09/24/23 05:31 Pulse Rate 72 71 Respiratory Rate Blood Pressure 104/59 L Pulse Oximetry 98 98 Oxygen Delivery Method 09/24/23 06:00 09/24/23 06:00 09/24/23 06:30 Pulse Rate 70 Respiratory Rate Blood Pressure 108/60 118/73 Pulse Oximetry 97 Oxygen Delivery Method 09/24/23 06:30 09/24/23 07:00 09/24/23 07:00 Pulse Rate 70 65 Respiratory Rate Blood Pressure 103/57 L Pulse Oximetry 99 98 Oxygen Delivery Method 09/24/23 07:30 09/24/23 07:30 Pulse Rate 73 Respiratory Rate Blood Pressure 105/64 Pulse Oximetry 96 Oxygen Delivery Method <Ana Romero DO - Last Filed: 09/24/23 08:05> Orders Ordered: Discontinued Medications Sodium Chloride (Normal Saline 0.9%) 1,000 mls @ 150 mls/hr IV CONT DONNELL Last Admin: 09/24/23 06:22 Dose: Not Given Documented By: AB Sodium Chloride (Normal Saline 0.9%) 1,000 mls @ 150 mls/hr IV CONT DONNELL Last Infusion: 09/24/23 08:17 Dose: Infused Documented By: Admin: 09/24/23 06:21 Dose: 150 mls/hr Documented By: AB Vital Signs Vital signs: Vital Signs - 8 hr 09/24/23 04:28 09/24/23 04:45 09/24/23 05:00 Pulse Rate 82 71 71 Respiratory Rate 17 Blood Pressure 112/56 L Pulse Oximetry 95 98 97 Oxygen Delivery Method Room Air 09/24/23 05:00 09/24/23 05:22 09/24/23 05:22 Pulse Rate 66 Respiratory Rate Blood Pressure 97/59 L 104/60 Pulse Oximetry 96 Oxygen Delivery Method 09/24/23 05:30 09/24/23 05:31 09/24/23 05:31 Pulse Rate 72 71 Respiratory Rate Blood Pressure 104/59 L Pulse Oximetry 98 98 Oxygen Delivery Method 09/24/23 06:00 09/24/23 06:00 09/24/23 06:30 Pulse Rate 70 Respiratory Rate Blood Pressure 108/60 118/73 Pulse Oximetry 97 Oxygen Delivery Method 09/24/23 06:30 09/24/23 07:00 09/24/23 07:00 Pulse Rate 70 65 Respiratory Rate Blood Pressure 103/57 L Pulse Oximetry 99 98 Oxygen Delivery Method 09/24/23 07:30 09/24/23 07:30 Pulse Rate 73 Respiratory Rate Blood Pressure 105/64 Pulse Oximetry 96 Oxygen Delivery Method MDM - Male Genitourinary <Yahaira Mckeon, - Last Filed: 09/28/23 09:47> Lab Data 09/24/23 05:30 09/24/23 05:30 Labs: Lab Results 09/24/23 09/24/23 Range/Units 05:30 06:30 WBC 4.9 (4.5-11.0) X10^3/uL RBC 3.37 L (4.5-5.9) X10^6/uL Hgb 11.4 L (13.5-17.5) g/dL Hct 32.9 L (41-53) % MCV 97.4 (80-100) fL MCH 33.7 (26-34) PG MCHC 34.6 (30-36) % RDW 13.3 (11.6-14.8) % Plt Count 166 (150-400) X10^3/uL Neut % (Auto) 71.9 (50-75) % Lymph % (Auto) 13.0 L (25-40) % Benson % (Auto) 10.7 (3-14) % Eos % (Auto) 3.8 (2-4) % Baso % (Auto) 0.6 (0-2) % Neut # (Auto) 3500 (7987-0812) /uL Lymph # (Auto) 600 L (3387-2142) /uL Benson # (Auto) 500 (0-900) /uL Eos # (Auto) 200 (0-450) /uL Baso # (Auto) 0 (0-100) /uL Sodium 137 (137-145) mmol/L Potassium 5.1 (3.4-5.1) mmol/L Chloride 104 (98-107) mmol/L Carbon Dioxide 28 (22-32) mmol/L BUN 54 H (9-20) mg/dL Creatinine 2.37 H (0.66-1.25) mg/dL Estimated GFR 28 L (>60) mL/min BUN/Creatinine Ratio 22.8 H (6-22) Glucose 109 (80-110) mg/dL Calcium 8.6 (8.4-10.2) mg/dL Total Bilirubin 0.7 (0.2-1.3) mg/dL AST 30 (17-59) IU/L ALT 19 (<50) IU/L Alkaline Phosphatase 86 (38-126) U/L Total Protein 7.1 (6.3-8.2) g/dL Albumin 3.9 (3.5-5.0) g/dL Globulin 3.2 (1.7-4.1) g/dL Albumin/Globulin Ratio 1.2 (1.0-2.8) Lipase 95 (23-300) U/L Urine Color Yellow Urine Appearance Clear Urine pH 5.5 (4.5-8.0) Ur Specific Bangs 1.015 (1.000-1.035) Urine Protein Negative (Negative) Urine Glucose (UA) Negative (Negative) g/dL Urine Ketones Negative (NEGATIVE) Urine Occult Blood 1+ H (Negative) Urine Nitrate Negative (Negative) Urine Bilirubin Negative (NEGATIVE) Urine Urobilinogen 0.2 (0.2) E.U./dL Ur Leukocyte Esterase Negative (NEGATIVE) Urine RBC 1-5/hpf (0-5/HPF) Urine WBC 0-1/hpf (0-5/HPF) Ur Squamous Epith Cells 0-1 /hpf (0-5/HPF) Urine Bacteria Occasional (0-1) (None) Ur Culture Indicated? Cult not indicated Vol Urine Centrifuged 10ml (spun) MDM Narrative Medical decision making narrative: 73-year-old male with decreased urine output overnight into today. Reported 400 mL. Bedside ultrasound not able to visualize his bladder easily secondary to habitus. Catheter was flushed and had 300 irrigated and out but appears clear. Plan for labs, CT KUB Labs show white count 4.9 hemoglobin 11.4, platelets of 166. Sodium 137 potassium 5 1 chloride 104 CO2 of 28 BUN of 54 with a creatinine 2.37 patient was 2.11 in August. Glucose is 1 9, electrolytes are otherwise appropriate. CT abdomen pelvis shows no evidence of colitis, diverticulitis, bowel obstruction obstructive uropathy or acute appendicitis. Pedroza catheter within bladder. No free fluid within the pelvis or pelvic adenopathy. Ill-defined stranding noted root of mesentery with associated prominent yet subcentimeter mesenteric lymph nodes nonspecific finding can be seen colitis. Small left pleural effusion. UA is pending. Patient's urine output is being monitored to see if appropriate output. Dr. Romero-patient signed out to me by Dr. Mckeon. I have seen evaluated patient myself. Urinalysis shows no evidence UTI. Blood pressure is soft but has been soft previously. Patient has had just about 400 cc of urine out since his arrival. He received 20 mg of torsemide Monday, at which time he had a significant amount of urine output. However the following day, yesterday, he had significantly decreased output. There is question of possible neurogenic bladder. Creatinine is up a little today previously 2.1 today 2.3, but baseline is around 1.2 or 1.3. At this time recommend repeat creatinine with PCP as an outpatient to continue to monitor. Also sounds like he needs referral to Urology for neurogenic bladder. <Ana Romero, DO - Last Filed: 09/24/23 08:05> Lab Data Labs: Lab Results 06/23/24 06/23/24 Range/Units 05:30 06:30 WBC 4.9 (4.5-11.0) X10^3/uL RBC 3.37 L (4.5-5.9) X10^6/uL Hgb 11.4 L (13.5-17.5) g/dL Hct 32.9 L (41-53) % MCV 97.4 (80-100) fL MCH 33.7 (26-34) PG MCHC 34.6 (30-36) % RDW 13.3 (11.6-14.8) % Plt Count 166 (150-400) X10^3/uL Neut % (Auto) 71.9 (50-75) % Lymph % (Auto) 13.0 L (25-40) % Benson % (Auto) 10.7 (3-14) % Eos % (Auto) 3.8 (2-4) % Baso % (Auto) 0.6 (0-2) % Neut # (Auto) 3500 (1189-1907) /uL Lymph # (Auto) 600 L (8742-2830) /uL Benson # (Auto) 500 (0-900) /uL Eos # (Auto) 200 (0-450) /uL Baso # (Auto) 0 (0-100) /uL Sodium 137 (137-145) mmol/L Potassium 5.1 (3.4-5.1) mmol/L Chloride 104 (98-107) mmol/L Carbon Dioxide 28 (22-32) mmol/L BUN 54 H (9-20) mg/dL Creatinine 2.37 H (0.66-1.25) mg/dL Estimated GFR 28 L (>60) mL/min BUN/Creatinine Ratio 22.8 H (6-22) Glucose 109 (80-110) mg/dL Calcium 8.6 (8.4-10.2) mg/dL Total Bilirubin 0.7 (0.2-1.3) mg/dL AST 30 (17-59) IU/L ALT 19 (<50) IU/L Alkaline Phosphatase 86 (38-126) U/L Total Protein 7.1 (6.3-8.2) g/dL Albumin 3.9 (3.5-5.0) g/dL Globulin 3.2 (1.7-4.1) g/dL Albumin/Globulin Ratio 1.2 (1.0-2.8) Lipase 95 (23-300) U/L Urine Color Yellow Urine Appearance Clear Urine pH 5.5 (4.5-8.0) Ur Specific Bangs 1.015 (1.000-1.035) Urine Protein Negative (Negative) Urine Glucose (UA) Negative (Negative) g/dL Urine Ketones Negative (NEGATIVE) Urine Occult Blood 1+ H (Negative) Urine Nitrate Negative (Negative) Urine Bilirubin Negative (NEGATIVE) Urine Urobilinogen 0.2 (0.2) E.U./dL Ur Leukocyte Esterase Negative (NEGATIVE) Urine RBC 1-5/hpf (0-5/HPF) Urine WBC 0-1/hpf (0-5/HPF) Ur Squamous Epith Cells 0-1 /hpf (0-5/HPF) Urine Bacteria Occasional (0-1) (None) Ur Culture Indicated? Cult not indicated Vol Urine Centrifuged 10ml (spun) MDM Narrative Medical decision making narrative: 73-year-old male with decreased urine output overnight into today. Reported 400 mL. Bedside ultrasound not able to visualize his bladder easily secondary to habitus. Catheter was flushed and had 300 irrigated and out but appears clear. Plan for labs, CT [facility] Labs show white count 4.9 hemoglobin 11.4, platelets of 166. Sodium 137 potassium 5 1 chloride 104 CO2 of 28 BUN of 54 with a creatinine 2.37 patient was 2.11 in August. Glucose is 1 9, electrolytes are otherwise appropriate. CT abdomen pelvis shows no evidence of colitis, diverticulitis, bowel obstruction obstructive uropathy or acute appendicitis. Pedroza catheter within bladder. No free fluid within the pelvis or pelvic adenopathy. Ill-defined stranding noted root of mesentery with associated prominent yet subcentimeter mesenteric lymph nodes nonspecific finding can be seen colitis. Small left pleural effusion. UA Patient's urine output Dr. Romero-patient signed out to me by Dr. Mckeon. I have seen evaluated patient myself. Urinalysis shows no evidence UTI. Blood pressure is soft but has been soft previously. Patient has had just about 400 cc of urine out since his arrival. He received 20 mg of torsemide Monday, at which time he had a significant amount of urine output. However the following day, yesterday, he had significantly decreased output. There is question of possible neurogenic bladder. Creatinine is up a little today previously 2.1 today 2.3, but baseline is around 1.2 or 1.3. At this time recommend repeat creatinine with PCP as an outpatient to continue to monitor. Also sounds like he needs referral to Urology for neurogenic bladder. Discharge Plan Departure Patient Disposition: Home Clinical Impression: Acute dehydration, WILBUR (acute kidney injury) Instructions: Acute Kidney Injury Activity Restrictions/Additional Instructions: *You have been diagnosed with acute kidney injury *What to do: It does look like you have had some mild dehydration. Your kidney function is rising. This needs to be monitored. Please talk with Dr. Lopez about having blood work rechecked this week can be done as an outpatient No evidence of infection today. I would hold off torsemide for now. *Continue to take medications as directed *Follow up with your primary care provider in 2-3 days or call [phone] *Return to ER if you should have decreasing urine output over 24 hours increasing shortness of breath increasing confusion or any new, worsening or concerning symptoms Prescriptions: No Action Entresto 24-26 mg tablet 1 tab PO BID spironolactone 25 mg tablet 12.5 mg PO DAILY tamsulosin 0.4 mg capsule 0.8 mg PO DAILY Qty: 180 3RF Eliquis 5 mg tablet See Rx Instructions .ROUTE .COMPLEX Qty: 180 3RF Dose Instruction: TAKE 1 TABLET TWICE A DAY Rx Instructions: TAKE 1 TABLET TWICE A DAY pantoprazole 40 mg tablet,delayed release (DR/EC) 40 mg PO DAILY Qty: 90 1RF gabapentin 300 mg capsule See Rx Instructions .ROUTE .COMPLEX Qty: 270 3RF Rx Instructions: 300mg in am and 600mg at bedtime. multivit with min-folic acid 0.4 mg Tablet 1 tab PO DAILY ciprofloxacin HCl 250 mg tablet 250 mg PO BID Qty: 6 0RF Rx Instructions: Take one tablet by mouth twice daily one day prior to procedure, the day of procedure, and the day after procedure. hydrocodone-acetaminophen 5-325 mg tablet 1 tab PO BID PRN Adult 50 Plus Probiotic 4 billion cell capsule 4,000 mmu cells PO DAILY Rx Instructions: administer with a meal melatonin 10 mg capsule 10 mg PO BEDTIME PRN epinephrine 0.3 mg/0.3 mL auto-injector 0.3 mg IM ONCE Rx Instructions: as a single dose; may repeat once Referrals: Matt Lopez MD [Primary Care Provider] - Stand Alone Forms: Patient Portal/API
--- NOTE | 2023-09-24 04:57 | DI.CT.S_ITS ---
PROCEDURE: CT KIDNEY URETER BLADDER (KUB) INDICATIONS: decreased urine output, hx renal failure TECHNIQUE: Axial sections were acquired from the lung bases to the pubic symphysis. Coronal and sagittal reformats were performed. For radiation dose reduction, the following was used: automated exposure control, adjustment of mA and/or kV according to patient size. COMPARISON: [facility], CT, KIDNEY/ URETER/BLADDER, 01/07/2014, 23:56. FINDINGS: Image quality: Diagnostic. Lower Chest: Trace bilateral pleural effusions. Cardiomegaly. URINARY: Right Kidney: No stones or hydronephrosis. Right Ureter: No hydroureter. Left Kidney: No stones or hydronephrosis. Left Ureter: No hydroureter. Bladder: Latter is decompressed around Pedroza catheter in situ. No stones. ABDOMEN: Liver: No contour-deforming solid mass. Gallbladder: No radiopaque gallstones or wall thickening. Biliary ducts: No biliary dilation. Pancreas: No ductal dilation. Spleen: Size is within normal limits. Adrenal Glands: No adrenal nodules. Stomach and Bowel: Small hiatal hernia. Normal colonic caliber, without significant wall thickening. Normal caliber appendix. Peritoneum: No abnormal intraperitoneal fluid. No free air. Ill-defined stranding at the root of the mesentery with associated prominent, yet subcentimeter mesenteric lymph nodes. Ventral Wall: No hernia. Abdominal Nodes: No enlarged retroperitoneal or mesenteric lymph nodes. Vessels: Aorta and inferior vena cava are normal in size. Infrarenal IVC filter in place with prongs protruding beyond the hooks of the IVC into the adjacent fat, which occurs with prolonged filters. If removal is warranted in the future, consider appropriate procedural planning. PELVIS: Pelvic Organs: Unremarkable. Pelvic Nodes: Unremarkable. Miscellaneous: No inguinal hernias are seen. Bones: Degenerative changes of the spine without acute vertebral body compression fracture. IMPRESSION: No obstructing stones or hydronephrosis. Bladder compressed around Pedroza catheter in situ. Mild stranding at the root of the mesentery with prominent, but nonenlarged mesenteric lymph nodes. 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 Trace bilateral pleural effusions, left greater than right. Findings are concordant with preliminary interpretation provided by [facility]. Approved by: Radha Kennedy M.D.,Ph.D. on 09/24/2023 at 10:57
--- NOTE | 2023-09-24 05:20 | PC.NURSE ---
Irrigated pt's indwelling catheter with 300 ml Sterile water with 300 ml return. No clots noted at this time, flushed without complications.
--- NOTE | 2023-09-24 05:36 | PC.NURSE ---
Pt states that since he had a cystoscopy he hasn't been able to urinate. Prior to this his output daily was around 1500 ml.
[2023-09-24 05:39] LABS: Add Manual Diff / Slide Review NO; Basophils Absolute Auto 0 /uL (0-100); Basophils Percent Auto 0.6 % (0-2); Eosinophils Absolute Auto 200 /uL (0-450); Eosinophils Percent Auto 3.8 % (2-4); Hematocrit 32.9 % (41-53); Hemoglobin 11.4 g/dL (13.5-17.5); Lymphocytes Absolute Auto 600 /uL (1100-4500); Mean Corpuscular HGB Conc 34.6 % (30-36); Mean Corpuscular Hemoglobin 33.7 PG (26-34); Mean Corpuscular Volume 97.4 fL (80-100); Monocytes Absolute Auto 500 /uL (0-900); Monocytes Percent Auto 10.7 % (3-14); Neutrophils Absolute Auto 3500 /uL (1500-7000); Neutrophils Percent Auto 71.9 % (50-75); Platelet Count 166 X10^3/uL (150-400); Red Blood Cell Count 3.37 X10^6/uL (4.5-5.9); Red Cell Distribution Width 13.3 % (11.6-14.8); White Blood Cell Count 4.9 X10^3/uL (4.5-11.0)
--- NOTE | 2023-09-24 05:47 | PC.NURSE ---
Changed catheter bag to be able to obtain cleanest sample.
[2023-09-24 05:53] LABS: Alanine Aminotransferase 19 IU/L (<50); Albumin 3.9 g/dL (3.5-5.0); Albumin Globulin Ratio 1.2 (1.0-2.8); Alkaline Phosphatase 86 U/L (38-126); Aspartate Aminotransferase 30 IU/L (17-59); BUN Creatinine Ratio 22.8 (6-22); Bilirubin Total 0.7 mg/dL (0.2-1.3); Blood Urea Nitrogen 54 mg/dL (9-20); Calcium 8.6 mg/dL (8.4-10.2); Carbon Dioxide 28 mmol/L (22-32); Chloride 104 mmol/L (98-107); Estimated Glomerular Filt Rate 28 mL/min (>60); Globulin 3.2 g/dL (1.7-4.1); Glucose 109 mg/dL (80-110); HEMOLYSIS < 15 (0-50); Lipase 95 U/L (23-300); Potassium 5.1 mmol/L (3.4-5.1); Sodium 137 mmol/L (137-145); Total Protein 7.1 g/dL (6.3-8.2)
[2023-09-24] MEDS: SODIUM CHLORIDE 0.9% 1,000 ML 150 ML IV (06:21)
[2023-09-24 06:42] LABS: Appearance Urine UA CLEAR; Bilirubin Urine UA NEGATIVE (NEGATIVE); Color Urine UA YELLOW; Glucose Urine UA NEGATIVE (Negative); Ketones Urine UA NEGATIVE (NEGATIVE); Leukocyte Esterase Urine UA NEGATIVE (NEGATIVE); Nitrite Urine UA NEGATIVE (Negative); Occult Blood Urine UA 1+ (Negative); Protein Urine UA NEGATIVE (Negative); Specific Gravity Urine UA 1.015 (1.000-1.035); Urobilinogen Urine UA 0.2 E.U./dL (0.2); pH Urine UA 5.5 (4.5-8.0)
[2023-09-24 06:48] LABS: Bacteria Urine Occasional (0-1); Culture Indicated Urine Cult Not Indicated; RBC Urine 1-5/HPF (0-5/HPF); Squamous Epithelial Cell Urine 0-1 /HPF (0-5/HPF); Urine Volume 10mL (spun); WBC Urine 0-1/HPF (0-5/HPF)
== END 2023-09-24 08:18 | disposition home or self-care (01) ==
PROVIDERS: Emergency Medicine; Emergency Provider Emergency Medicine; Family Provider Family Medicine; PCP Family Medicine
DX: E86.0 Dehydration (principal); N17.9 Acute kidney failure, unspecified
CPT/HCPCS: 36415; 51700; 74176; 80053; 81001; 83690; 85025; 96360; 96361; 99284

== ENCOUNTER → 2023-10-02 07:13 | Outpatient (CLI) | payer MEDICARE, SELFPAY ==
[2022-03-10 23:31] VITALS: BMI 40.0
[2022-03-11 12:11] VITALS: PULSE 64; RESP 22; O2SAT 98
[2023-10-02 08:01] LABS: Add Manual Diff / Slide Review NO; Basophils Absolute Auto 0 /uL (0-100); Basophils Percent Auto 0.3 % (0-2); Eosinophils Absolute Auto 200 /uL (0-450); Eosinophils Percent Auto 3.3 % (2-4); Hematocrit 33.7 % (41-53); Hemoglobin 11.4 g/dL (13.5-17.5); Lymphocytes Absolute Auto 600 /uL (1100-4500); Lymphocytes Percent Auto 11.5 % (25-40); Mean Corpuscular HGB Conc 33.8 % (30-36); Mean Corpuscular Hemoglobin 33.2 PG (26-34); Mean Corpuscular Volume 98.2 fL (80-100); Monocytes Absolute Auto 500 /uL (0-900); Monocytes Percent Auto 8.9 % (3-14); Neutrophils Absolute Auto 3800 /uL (1500-7000); Platelet Count 195 X10^3/uL (150-400); Red Blood Cell Count 3.43 X10^6/uL (4.5-5.9); Red Cell Distribution Width 13.6 % (11.6-14.8); White Blood Cell Count 5.1 X10^3/uL (4.5-11.0)
[2023-10-02 08:24] LABS: Alanine Aminotransferase 13 IU/L (<50); Albumin 3.7 g/dL (3.5-5.0); Albumin Globulin Ratio 1.2 (1.0-2.8); Alkaline Phosphatase 86 U/L (38-126); Aspartate Aminotransferase 25 IU/L (17-59); BUN Creatinine Ratio 27.7 (6-22); Bilirubin Total 0.8 mg/dL (0.2-1.3); Blood Urea Nitrogen 36 mg/dL (9-20); Carbon Dioxide 27 mmol/L (22-32); Chloride 109 mmol/L (98-107); Cholesterol 175 mg/dL (140-199); Estimated Glomerular Filt Rate 57 mL/min (>60); Glucose 100 mg/dL (80-110); HDL Cholesterol 70 mg/dL (40-60); HEMOLYSIS < 15 (0-50); LDL Cholesterol Calculated 87 mg/dL (<100); Potassium 4.9 mmol/L (3.4-5.1); Sodium 138 mmol/L (137-145); Total Protein 6.7 g/dL (6.3-8.2); Triglycerides 89 mg/dL (35-150)
[2023-10-02 12:02] LABS: Appearance Urine UA CLEAR; Bilirubin Urine UA NEGATIVE (NEGATIVE); Color Urine UA YELLOW; Glucose Urine UA NEGATIVE (Negative); Ketones Urine UA NEGATIVE (NEGATIVE); Leukocyte Esterase Urine UA NEGATIVE (NEGATIVE); Nitrite Urine UA NEGATIVE (Negative); Occult Blood Urine UA 2+ (Negative); Protein Urine UA TRACE (Negative); Urobilinogen Urine UA 0.2 E.U./dL (0.2)
[2023-10-02 12:20] LABS: Bacteria Urine Occasional (0-1); Culture Indicated Urine Cult Not Indicated; RBC Urine 10-30/HPF (0-5/HPF); Squamous Epithelial Cell Urine 1-5 /HPF (0-5/HPF); Urine Volume 10mL (spun); WBC Urine 1-5/HPF (0-5/HPF)
[2023-10-02 16:49] LABS: Hep C Virus Ab w/Reflex Quant NEGATIVE s/c (NEGATIVE)
== END ==
PROVIDERS: Family Provider Family Medicine; PCP Family Medicine; Referring Provider Family Medicine; Visit Provider Family Medicine
DX: E66.01 Morbid (severe) obesity due to excess calories (principal); Z11.59 Encounter for screening for other viral diseases; Z13.220 Encounter for screening for lipoid disorders; E87.8 Other disorders of electrolyte and fluid balance, not elsewhere classified; G57.93 Unspecified mononeuropathy of bilateral lower limbs; N17.9 Acute kidney failure, unspecified; E86.0 Dehydration; R33.9 Retention of urine, unspecified
CPT/HCPCS: 36415; 80053; 80061; 81001; 85025; 86803

== ENCOUNTER → 2023-10-17 14:19 | Outpatient (CLI) | payer MEDICARE, SELFPAY ==
[2022-03-10 23:31] VITALS: BMI 40.0
[2022-03-11 12:11] VITALS: PULSE 64; RESP 22; O2SAT 98
== END ==
PROVIDERS: Family Provider Family Medicine; PCP Family Medicine; Visit Provider Urology
DX: R33.9 Retention of urine, unspecified (principal)
CPT/HCPCS: 87086

== ENCOUNTER → 2023-10-18 12:47 | Outpatient (CLI) | payer MEDICARE, SELFPAY ==
[2022-03-10 23:31] VITALS: BMI 40.0
[2022-03-11 12:11] VITALS: PULSE 64; RESP 22; O2SAT 98
[2023-10-18 15:37] LABS: Adenovirus F 40/41 Not Detected (Not Detect); Astrovirus Not Detected (Not Detect); Campylobacter Not Detected (Not Detect); Clostridium difficile toxin AB Not Detected (Not Detect); Cryptosporidium Not Detected (Not Detect); Cyclospora cayetanensis Not Detected (Not Detect); Entamoeba histolytica Not Detected (Not Detect); Enteroaggregative E.coli Not Detected (Not Detect); Enteropathogenic E.coli Not Detected (Not Detect); Enterotoxigenic E.coli It/st Not Detected (Not Detect); Giardia lamblia Not Detected (Not Detect); Norovirus GI/GII Not Detected (Not Detect); Plesiomonsa shigelloides Not Detected (Not Detect); Rotavirus A Not Detected (Not Detect); Salmonella Not Detected (Not Detect); Sapovirus Not Detected (Not Detect); Shiga-like toxin-prod E.coli Not Detected (Not Detect); Shigella/Enteroinvasive E.coli Not Detected (Not Detect); Vibrio Not Detected (Not Detect); Vibrio cholerae Not Detected (Not Detect); Yersinia enterocolitica Not Detected (Not Detect)
== END ==
PROVIDERS: Family Provider Family Medicine; PCP Family Medicine; Referring Provider Family Medicine; Visit Provider Family Medicine
DX: R19.7 Diarrhea, unspecified (principal)
CPT/HCPCS: 87045; 87177; 87507

== ENCOUNTER → 2023-10-24 15:31 | Outpatient (CLI) | payer MEDICARE, SELFPAY ==
[2022-03-10 23:31] VITALS: BMI 40.0
[2022-03-11 12:11] VITALS: PULSE 64; RESP 22; O2SAT 98
== END ==
PROVIDERS: Family Provider Family Medicine; PCP Family Medicine; Visit Provider Urology
DX: R33.9 Retention of urine, unspecified (principal)
CPT/HCPCS: 87077; 87086; 87186

== ENCOUNTER → 2023-11-16 14:17 | Outpatient (CLI) | payer MEDICARE, SELFPAY ==
[2022-03-10 23:31] VITALS: BMI 40.0
[2022-03-11 12:11] VITALS: PULSE 64; RESP 22; O2SAT 98
== END ==
PROVIDERS: Family Provider Family Medicine; PCP Family Medicine; Referring Provider Urology; Visit Provider Urology
DX: R33.9 Retention of urine, unspecified (principal)
CPT/HCPCS: 87086

== ENCOUNTER → 2023-12-14 14:10 | Outpatient (CLI) | payer MEDICARE, SELFPAY ==
[2022-03-10 23:31] VITALS: BMI 40.0
[2022-03-11 12:11] VITALS: PULSE 64; RESP 22; O2SAT 98
== END ==
PROVIDERS: Family Provider Family Medicine; PCP Family Medicine; Visit Provider Urology
DX: R33.9 Retention of urine, unspecified (principal)
CPT/HCPCS: 87077; 87086; 87186

== ENCOUNTER → 2023-12-26 13:50 | Outpatient (CLI) | payer MEDICARE, SELFPAY ==
[2022-03-10 23:31] VITALS: BMI 40.0
[2022-03-11 12:11] VITALS: PULSE 64; RESP 22; O2SAT 98
== END ==
PROVIDERS: Family Provider Family Medicine; PCP Family Medicine; Visit Provider Urology
DX: R19.7 Diarrhea, unspecified (principal)
CPT/HCPCS: 87045

== ENCOUNTER 2024-01-03 12:53 | Emergency (ER) | payer MEDICARE, SELFPAY ==
[2022-03-10 23:31] VITALS: BMI 40.0
[2022-03-11 12:11] VITALS: PULSE 64; RESP 22; O2SAT 98
[2024-01-03] VITALS (11 sets, daily range): BP systolic 105–120; BP diastolic 58–66; PULSE 69–72; RESP 12–24; TEMP 36.3; O2SAT 93–98; BMI 40.4
--- NOTE | 2024-01-03 14:01 | ED_ITS ---
HPI - GI Bleed General Chief complaint: GI Bleed Stated complaint: Swelling, Pain LLQ Abd Time Seen by Provider: 01/03/24 14:01 Source: patient Mode of arrival: Wheelchair History of Present Illness HPI Narrative: Patient is a 73-year-old male history of AFib on Eliquis, DVT, CHF with chronic indwelling Pedroza for history of chronic urinary retention presents to the ED for evaluation of left lower quadrant abdominal pain, he has been ongoing and intermittent for the past 2 weeks. States that he is currently taking antibiotics that is prescribed by his urologist due to a urinary tract infection. States that he has an appointment on the of this month to get the Pedroza catheter change. He has not having any issues with the Pedroza catheter at this time. No other symptoms at this time Related Data Home Medications Medication Instructions Recorded Confirmed multivitamin with minerals-folic 1 tab PO DAILY 02/17/22 12/14/23 acid 0.4 mg tablet spironolactone 25 mg tablet 12.5 mg PO DAILY 02/02/23 12/14/23 epinephrine 0.3 mg/0.3 mL 0.3 mg IM ONCE 09/11/23 12/14/23 injection, auto-injector hydrocodone 5 mg-acetaminophen 325 1 tab PO BID PRN 09/11/23 12/14/23 mg tablet lactobacillus combination no.9 4 4,000 mmu cells PO DAILY 09/11/23 12/14/23 billion cell capsule (Adult 50 Plus Probiotic) melatonin 10 mg capsule 10 mg PO BEDTIME PRN 09/11/23 12/14/23 Previous Rx's Medication Instructions Recorded tamsulosin 0.4 mg capsule 0.8 mg (2 x 0.4 mg) PO DAILY #180 01/25/23 caps apixaban 5 mg tablet (Eliquis) See Rx Instructions .Route 04/27/23 .COMPLEX #180 tabs gabapentin 300 mg capsule See Rx Instructions .Route 09/18/23 .COMPLEX #270 caps Disabled Parking See Rx Instructions .Route 10/10/23 .COMPLEX #365 days Electric wheelchair #1 ea 11/21/23 pantoprazole 40 mg tablet,delayed 40 mg PO DAILY #90 tabs 11/27/23 release sacubitril 24 mg-valsartan 26 mg 1 tab PO BID #180 tabs 12/04/23 tablet (Entresto) Allergies Allergy/AdvReac Type Severity Reaction Status Date / Time latex [LATEX] Allergy Intermediate Rash Verified 01/03/24 13:05 nitrofurantoin AdvReac Severe Diarrhea Verified 01/03/24 13:05 MULTIPLE FOOD ALLERGIES Allergy Intermediate STOMACH Uncoded 01/03/24 13:05 CRAMPS,DIARRHEA Review of Systems Review of Systems Narrative: General: Denies fever, chills, weight loss HEENT: Denies headache, eye drainage, eye irritation, head trauma, sore throat, voice change Cardiovascular: Denies any chest pain, palpitations, shortness of breath, tachycardia Respiratory: Denies any shortness of breath, cough, wheeze, stridor GI/: Positive for abdominal pain, negative nausea, vomiting, diarrhea, bright red blood per rectum, melanotic stools, urinary frequency, urinary retention, dysuria, hematuria MSK: Denies any joint pain, muscle pains, swelling Skin: Denies any rashes, lesions, discoloration Neuro: Denies any headache, lightheadedness, dizziness, fainting, weakness Psych: Denies SI/HI Patient History Medical History History of sepsis History of kidney stones Urine retention History of pulmonary hypertension Presence of IVC filter Morbid obesity with BMI of 50.0-59.9, adult Pulmonary edema (06/2022) Peripheral neuropathy BPH (benign prostatic hyperplasia) GERD (gastroesophageal reflux disease) Thrombocytopenia Nonischemic cardiomyopathy Severe muscle deconditioning Acute respiratory failure with hypoxia Acute on chronic systolic heart failure Pneumonia Acute hypoxemic respiratory failure Pneumonia Vision disorder Hearing loss Sleep apnea (~1989) Fractures (~1989) Foot pain (~1989) Chronic back pain (~2009) Measles (~1959) Chicken pox (~1959) Irritable bowel syndrome (~2014) Low testosterone (~1989) Deep vein thrombosis (~1989) Atrial fibrillation (~2014) Surgical History Status post implantation of mitral valve leaflet clip (06/10/23) AICD (automatic cardioverter/defibrillator) present (06/13/22) Anesthesia History of back surgery History of tonsillectomy History of surgery (~2015) Herculaneum filter in place (~1992) Social History household members: spouse Smoking Status: Never smoker alcohol intake: current Smoking Status: Never smoker alcohol intake frequency: 0-2 drinks per day Substance Use Type: does not use Exam Narrative Exam Narrative: General: Cooperative, comfortable, well-developed, not in acute distress HEENT: Normocephalic, atraumatic, PERRLA, normal sclera, eyelids normal, Neck: Active full range of motion, atraumatic Chest: Normal to inspection, negative crepitus, no overlying erythema ecchymosis Respiratory: Normal respiratory effort, not in acute respiratory distress, clear to auscultation bilaterally negative cough, wheeze, tachypnea, rhonchi, rales Cardiology: Regular rate rhythm negative gallop, murmur, rubs GI/: Normal to inspection, soft, nonrigid, mild to the left lower quadrant tenderness to palpation, exam deferred MSK: Full range of active range of motion of all 4 extremities, atraumatic Skin: No rashes lesions noted Neuro: Alert awake oriented x3, moves all 4 extremities spontaneously, cranial nerves intact, able to answer all questions appropriately follows commands appropriately Psych: Cooperative, negative suicidal or homicidal ideations Initial Vital Signs Initial Vital Signs: Vital Signs Temperature 97.3 F L 01/03/24 13:01 Pulse Rate 71 01/03/24 13:01 Respiratory Rate 12 01/03/24 13:01 Blood Pressure 120/66 01/03/24 13:01 Pulse Oximetry 98 01/03/24 13:01 Oxygen Delivery Method Room Air 01/03/24 13:01 Course Orders Ordered: ED Orders 01/03/24 13:05 EKG-12 Lead Stat 01/03/24 14:17 Complete Blood Count AUTO DIFF Stat Comprehensive Metabolic Panel Stat PTT Partial Thromboplastin Jacek Stat Prothrombin Time INR Stat 01/03/24 14:37 Type and Screen Stat 01/03/24 15:09 CT abdomen pelvis w con Stat Ondansetron HCl (Ondansetron 4 Mg/2 Ml Inj) 4 mg IV NOW PRN PRN Reason: Nausea And Vomiting Ondansetron HCl (Ondansetron 4 Mg Odt) 4 mg SL NOW PRN PRN Reason: Nausea And Vomiting Discontinued Medications Morphine Sulfate (Morphine 4 Mg/Ml Inj) 4 mg IV NOW ONE Stop: 01/03/24 15:20 Last Admin: 01/03/24 15:46 Dose: 4 mg Documented By: JOSE Vital Signs Vital signs: Vital Signs - 8 hr 01/03/24 13:01 01/03/24 14:21 01/03/24 14:24 Temperature 97.3 F L Pulse Rate 71 71 72 Respiratory Rate 12 21 Blood Pressure 120/66 Pulse Oximetry 98 93 96 Oxygen Delivery Method Room Air 01/03/24 14:24 01/03/24 14:30 01/03/24 14:30 Temperature Pulse Rate 71 Respiratory Rate 20 Blood Pressure 105/58 L 118/62 Pulse Oximetry 97 Oxygen Delivery Method 01/03/24 15:00 01/03/24 15:00 01/03/24 15:35 Temperature Pulse Rate 69 69 Respiratory Rate 21 24 Blood Pressure 106/58 L Pulse Oximetry 97 98 Oxygen Delivery Method 01/03/24 16:00 Temperature Pulse Rate 72 Respiratory Rate 20 Blood Pressure Pulse Oximetry 97 Oxygen Delivery Method MDM - GI Bleed Differential Diagnosis Differential diagnosis: Likely other (Diverticulitis, colitis, electrolyte abnormality) Lab Data Attestation: I reviewed the patient's lab results. 01/03/24 14:17 01/03/24 14:17 Labs: Lab Results 01/03/24 01/03/24 Range/Units 14:17 14:37 WBC 6.0 (4.5-11.0) X10^3/uL RBC 3.49 L (4.5-5.9) X10^6/uL Hgb 11.4 L (13.5-17.5) g/dL Hct 33.4 L (41-53) % MCV 95.7 (80-100) fL MCH 32.6 (26-34) PG MCHC 34.1 (30-36) % RDW 14.2 (11.6-14.8) % Plt Count 257 (150-400) X10^3/uL Neut % (Auto) 82.1 H (50-75) % Lymph % (Auto) 9.1 L (25-40) % [place] % (Auto) 7.9 (3-14) % Eos % (Auto) 0.7 L (2-4) % Baso % (Auto) 0.2 (0-2) % Neut # (Auto) 4900 (0608-4257) /uL Lymph # (Auto) 500 L (2906-8810) /uL [place] # (Auto) 500 (0-900) /uL Eos # (Auto) 0 (0-450) /uL Baso # (Auto) 0 (0-100) /uL PT 16.2 H (9.4-12.5) SECONDS INR 1.4 H (0.9-1.3) APTT 36 (25.1-36.5) SECONDS Sodium 134 L (137-145) mmol/L Potassium 4.6 (3.4-5.1) mmol/L Chloride 104 (98-107) mmol/L Carbon Dioxide 25 (22-32) mmol/L BUN 30 H (9-20) mg/dL Creatinine 1.30 H (0.66-1.25) mg/dL Estimated GFR 57 L (>60) mL/min BUN/Creatinine Ratio 23.1 H (6-22) Glucose 102 (80-110) mg/dL Calcium 9.4 (8.4-10.2) mg/dL Total Bilirubin 0.7 (0.2-1.3) mg/dL AST 26 (17-59) IU/L ALT 13 (<50) IU/L Alkaline Phosphatase 82 (38-126) U/L Total Protein 7.3 (6.3-8.2) g/dL Albumin 3.8 (3.5-5.0) g/dL Globulin 3.5 (1.7-4.1) g/dL Albumin/Globulin Ratio 1.1 (1.0-2.8) Blood Type A Positive Antibody Screen Negative Urine Dip Bedside Urine Glucose Negative Bedside Urine Bilirubin - Negative Bedside Urine Ketone - Negative Urine Specific [place] 1.015 Bedside Urine Occult Blood - Negative Bedside Urine pH 5.5 Bedside Urine Protein - Negative Bedside Urine Urobilinogen - Negative Bedside Urine Nitrite - Negative Bedside Urine Leukocytes - Negative Esterase Imaging Data CT scan - abdomen/pelvis: Radiologist's Impression: PROCEDURE: CT ABDOMEN PELVIS W CON INDICATIONS: LLQ abd pain TECHNIQUE: After the administration of intravenous contrast, axial sections acquired from the lung bases to the pubic symphysis. Coronal and sagittal reformats were performed. For radiation dose reduction, the following was used: automated exposure control, adjustment of mA and/or kV according to patient size. COMPARISON: [facility], CT, CT KIDNEY URETER BLADDER (KUB), 09/24/2023, 5:07. FINDINGS: Image quality: Diagnostic. Lower Chest: Small bilateral pleural effusions with mild adjacent atelectasis. These are increased compared to prior exam. Cardiomegaly. Partially visualized pacemaker leads. Small hiatal hernia. ABDOMEN: Liver: No solid mass. Nodular contour to the liver Gallbladder: No radiopaque gallstones or wall thickening. Biliary ducts: No biliary dilation. Pancreas: No ductal dilation. Spleen: Size is within normal limits. Adrenal Glands: No adrenal nodules. Kidneys and Ureters: No hydronephrosis. No solid mass. No complex renal cystic lesion which requires follow up. Stomach and Bowel: Normal colonic caliber, without significant wall thickening. Colon is partially fluid-filled. Normal appendix. Few small diverticula without evidence of diverticulitis. Peritoneum: Mild mesenteric stranding. No abnormal intraperitoneal fluid. No free air. Ventral Wall: No significant ventral hernia. Abdominal Nodes: No retroperitoneal or mesenteric adenopathy by size criteria. Vessels: Aorta and inferior vena cava are normal in size. Mild atherosclerotic vascular calcifications. IVC filter in place. PELVIS: Pelvic Organs: Unremarkable. Bladder: Decompressed with a Pedroza catheter in place. Pelvic Nodes: No enlarged lymph nodes. Miscellaneous: Small right fat containing inguinal hernia. Bones: No aggressive osseous abnormality. Degenerative changes of the spine. Decreased osseous mineralization. The visualized lower thoracic spine has an appearance suggestive of ankylosing spondylitis. IMPRESSION: 1. The colon is partially fluid-filled, may represent a rapid transit state or colitis. 2. Mild mesenteric stranding is noted, nonspecific and may represent mesenteric panniculitis. Stable compared to prior. 3. Mildly nodular contour to the liver, correlate for signs of cirrhosis. 4. Small bilateral pleural effusions are increased in size compared to prior. 5. The visualized lower thoracic spine has an appearance suggestive of ankylosing spondylitis. MDM Narrative Medical decision making narrative: Patient is a 73-year-old male history of AFib DVT on Eliquis, CHF, chronic indwelling Pedroza currently being treated with antibiotics by his urologist comes into the ED for evaluation of 2-1/2 weeks of left lower quadrant abdominal pain. Lab work does not show any leukocytosis CT scan without any signs of any acute findings show some chronic panniculitis. Patient's creatinine at baseline. Patient will be instructed to follow up in an outpatient setting with PCP and GI, strict return precautions given safe for discharge home with outpatient follow up Discharge Plan Departure Patient Disposition: Home Clinical Impression: Abdominal pain Activity Restrictions/Additional Instructions: Please read the discharge instructions sheet carefully and bring all papers to all doctor follow-up visits, as it may contain information that your doctor may want to see. Disease processes change and evolve, if your symptoms worsen or if you develop any new symptoms that are concerning to you please return for evaluation. Your evaluation today does not show any evidence of any life- threatening/serious illnesses requiring admission to the hospital or surgery. Please follow-up with your doctor for re-evaluation in approximately 1 day. Seek immediate medical attention for any worrisome symptoms. Prescriptions: No Action spironolactone 25 mg tablet 12.5 mg PO DAILY tamsulosin 0.4 mg capsule 0.8 mg PO DAILY Qty: 180 3RF Eliquis 5 mg tablet See Rx Instructions .ROUTE .COMPLEX Qty: 180 3RF Dose Instruction: TAKE 1 TABLET TWICE A DAY Rx Instructions: TAKE 1 TABLET TWICE A DAY gabapentin 300 mg capsule See Rx Instructions .ROUTE .COMPLEX Qty: 270 3RF Rx Instructions: 300mg in am and 600mg at bedtime. Disabled Parking See Rx Instructions .ROUTE .COMPLEX Qty: 365 0RF Rx Instructions: I find this patient to be medically disabled and qualified for Disabled Parking as indicated and signed on the accompanying Disabled Parking Application for Individuals (DME) Electric wheelchair See Rx Instructions .Route .MEDSUPPLY Qty: 1 0RF Rx Instructions: As directed pantoprazole 40 mg tablet,delayed release (DR/EC) 40 mg PO DAILY Qty: 90 1RF Entresto 24-26 mg tablet 1 tab PO BID Qty: 180 3RF multivit with min-folic acid 0.4 mg Tablet 1 tab PO DAILY hydrocodone-acetaminophen 5-325 mg tablet 1 tab PO BID PRN Adult 50 Plus Probiotic 4 billion cell capsule 4,000 mmu cells PO DAILY Rx Instructions: administer with a meal melatonin 10 mg capsule 10 mg PO BEDTIME PRN epinephrine 0.3 mg/0.3 mL auto-injector 0.3 mg IM ONCE Rx Instructions: as a single dose; may repeat once Referrals: Matt Lopez MD [Primary Care Provider] - Stand Alone Forms: Patient Portal/API
--- NOTE | 2024-01-03 14:02 | EKG_ITS ---
[id number], [place] [address] Test Date: 2024-01-03 Pat Name: Anderson Duarte Department: [facility] Room: Gender: Male Campus Coordinator: MARGARET : 1950 Requested By: Order Number: [id number] Reading MD: Caden Milligan MD Measurements Intervals [place] Rate: 70 P: NV: QRS: 62 QRSD: 154 T: 11 QT: 440 QTc: 475 Interpretive Statements Ventricular-paced rhythm Biventricular pacemaker detected Electronically Signed On 01-04-2024 7:58:06 PDT by Caden Milligan MD
[2024-01-03 14:25] LABS: Add Manual Diff / Slide Review NO; Basophils Absolute Auto 0 /uL (0-100); Basophils Percent Auto 0.2 % (0-2); Eosinophils Absolute Auto 0 /uL (0-450); Eosinophils Percent Auto 0.7 % (2-4); Hematocrit 33.4 % (41-53); Hemoglobin 11.4 g/dL (13.5-17.5); Lymphocytes Absolute Auto 500 /uL (1100-4500); Lymphocytes Percent Auto 9.1 % (25-40); Mean Corpuscular HGB Conc 34.1 % (30-36); Mean Corpuscular Hemoglobin 32.6 PG (26-34); Mean Corpuscular Volume 95.7 fL (80-100); Monocytes Absolute Auto 500 /uL (0-900); Monocytes Percent Auto 7.9 % (3-14); Neutrophils Absolute Auto 4900 /uL (1500-7000); Neutrophils Percent Auto 82.1 % (50-75); Platelet Count 257 X10^3/uL (150-400); Red Blood Cell Count 3.49 X10^6/uL (4.5-5.9); Red Cell Distribution Width 14.2 % (11.6-14.8)
[2024-01-03 14:33] LABS: INR 1.4 (0.9-1.3); Prothrombin Time 16.2 SECONDS (9.4-12.5)
[2024-01-03 14:35] LABS: PTT Partial Thromboplastin Tim 36 SECONDS (25.1-36.5)
[2024-01-03 14:42] LABS: Alanine Aminotransferase 13 IU/L (<50); Albumin 3.8 g/dL (3.5-5.0); Albumin Globulin Ratio 1.1 (1.0-2.8); Alkaline Phosphatase 82 U/L (38-126); Aspartate Aminotransferase 26 IU/L (17-59); BUN Creatinine Ratio 23.1 (6-22); Bilirubin Total 0.7 mg/dL (0.2-1.3); Blood Urea Nitrogen 30 mg/dL (9-20); Calcium 9.4 mg/dL (8.4-10.2); Carbon Dioxide 25 mmol/L (22-32); Chloride 104 mmol/L (98-107); Estimated Glomerular Filt Rate 57 mL/min (>60); Globulin 3.5 g/dL (1.7-4.1); Glucose 102 mg/dL (80-110); HEMOLYSIS < 15 (0-50); Potassium 4.6 mmol/L (3.4-5.1); Sodium 134 mmol/L (137-145); Total Protein 7.3 g/dL (6.3-8.2)
--- NOTE | 2024-01-03 15:09 | DI.CT.S_ITS ---
PROCEDURE: CT ABDOMEN PELVIS W CON INDICATIONS: LLQ abd pain TECHNIQUE: After the administration of intravenous contrast, axial sections acquired from the lung bases to the pubic symphysis. Coronal and sagittal reformats were performed. For radiation dose reduction, the following was used: automated exposure control, adjustment of mA and/or kV according to patient size. COMPARISON: [facility], CT, CT KIDNEY URETER BLADDER (KUB), 09/24/2023, 5:07. FINDINGS: Image quality: Diagnostic. Lower Chest: Small bilateral pleural effusions with mild adjacent atelectasis. These are increased compared to prior exam. Cardiomegaly. Partially visualized pacemaker leads. Small hiatal hernia. ABDOMEN: Liver: No solid mass. Nodular contour to the liver Gallbladder: No radiopaque gallstones or wall thickening. Biliary ducts: No biliary dilation. Pancreas: No ductal dilation. Spleen: Size is within normal limits. Adrenal Glands: No adrenal nodules. Kidneys and Ureters: No hydronephrosis. No solid mass. No complex renal cystic lesion which requires follow up. Stomach and Bowel: Normal colonic caliber, without significant wall thickening. Colon is partially fluid-filled. Normal appendix. Few small diverticula without evidence of diverticulitis. Peritoneum: Mild mesenteric stranding. No abnormal intraperitoneal fluid. No free air. Ventral Wall: No significant ventral hernia. Abdominal Nodes: No retroperitoneal or mesenteric adenopathy by size criteria. Vessels: Aorta and inferior vena cava are normal in size. Mild atherosclerotic vascular calcifications. IVC filter in place. PELVIS: Pelvic Organs: Unremarkable. Bladder: Decompressed with a Pedroza catheter in place. Pelvic Nodes: No enlarged lymph nodes. Miscellaneous: Small right fat containing inguinal hernia. Bones: No aggressive osseous abnormality. Degenerative changes of the spine. Decreased osseous mineralization. The visualized lower thoracic spine has an appearance suggestive of ankylosing spondylitis. IMPRESSION: 1. The colon is partially fluid-filled, may represent a rapid transit state or colitis. 2. Mild mesenteric stranding is noted, nonspecific and may represent mesenteric panniculitis. Stable compared to prior. 3. Mildly nodular contour to the liver, correlate for signs of cirrhosis. 4. Small bilateral pleural effusions are increased in size compared to prior. 5. The visualized lower thoracic spine has an appearance suggestive of ankylosing spondylitis. Dictated by: Jordi Donato M.D. on 01/03/2024 at 16:03 Approved by: Jordi Donato M.D. on 01/03/2024 at 16:08
[2024-01-03] MEDS: MORPHINE 4 MG/ML INJ IV (15:46)
== END 2024-01-03 17:58 | disposition home or self-care (01) ==
PROVIDERS: Emergency Provider Student in an Organized Health Care Education/Training Program; Family Provider Family Medicine; PCP Family Medicine
DX: R10.32 Left lower quadrant pain (principal); I48.91 Unspecified atrial fibrillation; Z79.01 Long term (current) use of anticoagulants; I50.9 Heart failure, unspecified
CPT/HCPCS: 36415; 74177; 80053; 81003; 85025; 85610; 85730; 86850; 86900; 86901; 93005; 96374; 99284; J2270; Q9967

== ENCOUNTER 2024-01-04 14:26 | Emergency (ER) | payer MEDICARE, SELFPAY ==
[2022-03-10 23:31] VITALS: BMI 40.0
[2022-03-11 12:11] VITALS: PULSE 64; RESP 22; O2SAT 98
[2024-01-04 14:31] VITALS: BP 133/66; PULSE 75; RESP 18; TEMP 36.7; O2SAT 96; BMI 36.4
--- NOTE | 2024-01-04 15:21 | ED_ITS ---
<Statement entered by Griffin Patton DO - 01/04/24 17:05> Dr. Patton: I was immediately available in the department for consultation. Documentation has been reviewed. I agree with assessment and plan. HPI - Male Genitourinary General Chief complaint: Urogenital-Male Stated complaint: catheter issue Time Seen by Provider: 01/04/24 14:55 Source: patient Mode of arrival: Wheelchair History of Present Illness HPI Narrative: This patient is a 73-year-old male with an indwelling Pedroza catheter that was placed by his urologist. This was placed to determine if he has a neurological condition affiliated with his bladder but apparently BPH has been ruled out. The patient has also been on antibiotics for a urinary tract infection. This morning, the patient woke up and his short word, ?covered in urine?. There is concerned that there is leakage from the Pedroza catheter tubing. He has had two smaller sized catheters then have caused leakage in the recent past. Patient denies night sweats, fever, chills, back pain, gross hematuria, nausea, vomiting, chest pain or shortness of breath. Related Data Home Medications Medication Instructions Recorded Confirmed multivitamin with minerals-folic 1 tab PO DAILY 02/17/22 12/14/23 acid 0.4 mg tablet spironolactone 25 mg tablet 12.5 mg PO DAILY 02/02/23 12/14/23 epinephrine 0.3 mg/0.3 mL 0.3 mg IM ONCE 09/11/23 12/14/23 injection, auto-injector hydrocodone 5 mg-acetaminophen 325 1 tab PO BID PRN 09/11/23 12/14/23 mg tablet lactobacillus combination no.9 4 4,000 mmu cells PO DAILY 09/11/23 12/14/23 billion cell capsule (Adult 50 Plus Probiotic) melatonin 10 mg capsule 10 mg PO BEDTIME PRN 09/11/23 12/14/23 Previous Rx's Medication Instructions Recorded tamsulosin 0.4 mg capsule 0.8 mg (2 x 0.4 mg) PO DAILY #180 01/25/23 caps apixaban 5 mg tablet (Eliquis) See Rx Instructions .Route 04/27/23 .COMPLEX #180 tabs gabapentin 300 mg capsule See Rx Instructions .Route 09/18/23 .COMPLEX #270 caps Disabled Parking See Rx Instructions .Route 10/10/23 .COMPLEX #365 days Electric wheelchair #1 ea 11/21/23 pantoprazole 40 mg tablet,delayed 40 mg PO DAILY #90 tabs 11/27/23 release sacubitril 24 mg-valsartan 26 mg 1 tab PO BID #180 tabs 12/04/23 tablet (Entresto) Allergies Allergy/AdvReac Type Severity Reaction Status Date / Time latex [LATEX] Allergy Intermediate Rash Verified 01/03/24 13:05 nitrofurantoin AdvReac Severe Diarrhea Verified 01/03/24 13:05 MULTIPLE FOOD ALLERGIES Allergy Intermediate STOMACH Uncoded 01/03/24 13:05 CRAMPS,DIARRHEA Review of Systems Review of Systems Narrative: Review of systems: General: See HPI : See HPI All other review of systems have been reviewed and ultimately negative unless otherwise stated in the HPI Patient History Medical History History of sepsis History of kidney stones Urine retention History of pulmonary hypertension Presence of IVC filter Morbid obesity with BMI of 50.0-59.9, adult Pulmonary edema (06/2022) Peripheral neuropathy BPH (benign prostatic hyperplasia) GERD (gastroesophageal reflux disease) Thrombocytopenia Nonischemic cardiomyopathy Severe muscle deconditioning Acute respiratory failure with hypoxia Acute on chronic systolic heart failure Pneumonia Acute hypoxemic respiratory failure Pneumonia Vision disorder Hearing loss Sleep apnea (~1989) Fractures (~1989) Foot pain (~1989) Chronic back pain (~2009) Measles (~1959) Chicken pox (~1959) Irritable bowel syndrome (~2014) Low testosterone (~1989) Deep vein thrombosis (~1989) Atrial fibrillation (~2014) Surgical History Status post implantation of mitral valve leaflet clip (06/10/23) AICD (automatic cardioverter/defibrillator) present (06/13/22) Anesthesia History of back surgery History of tonsillectomy History of surgery (~2015) Oceana filter in place (~1992) Social History household members: spouse Smoking Status: Never smoker alcohol intake: current Smoking Status: Never smoker alcohol intake frequency: 0-2 drinks per day Substance Use Type: does not use Exam Initial Vital Signs Initial Vital Signs: Vital Signs Temperature 98.1 F 10/03/24 14:31 Pulse Rate 75 01/04/24 14:31 Respiratory Rate 18 01/04/24 14:31 Blood Pressure 133/66 01/04/24 14:31 Pulse Oximetry 96 01/04/24 14:31 Oxygen Delivery Method Room Air 01/04/24 14:31 Const General: cooperative, healthy appearing, comfortable and well groomed [facility] Head: normal to inspection, normocephalic and atraumatic Eyes General: Yes appearance normal, both eyes and all related structures Neck Neck: normal visual inspection, full ROM and no meningeal signs Resp Effort & Inspection: normal respiratory effort and able to speak in complete sentences Cardio Rate: regular rate Rhythm: regular rhythm Heart Sounds: S1 normal and S2 normal GI Inspection: normal to inspection, large pannus and obesity Other: Patient has a Pedroza catheter in place. No CVA tenderness. No gross hematuria noted in the Pedroza collection bag. Back/Spine/Pelvis Back: normal to inspection Skin General: no rashes or lesions noted, elasticity normal and turgor normal Neuro Cranial Nerves: CN's II-XI intact bilaterally and PERRL Extrem General: normal to inspection and full ROM Psych Appearance: grossly normal and well kempt Course Course Course Narrative: Patient was seen and examined. The previous Pedroza catheter was removed by nursing staff and a new, larger Pedroza catheter was placed. Patient tolerated procedure well. He was then prepped for discharge home. Orders Ordered: Discontinued Medications Lidocaine HCl (Lidocaine 2% (Glydo) 6 Ml Gel) 6 ml TOP NOW ONE Stop: 01/04/24 15:15 Vital Signs Vital signs: Vital Signs - 8 hr 01/04/24 14:31 Temperature 98.1 F Pulse Rate 75 Respiratory Rate 18 Blood Pressure 133/66 Pulse Oximetry 96 Oxygen Delivery Method Room Air MDM - Male Genitourinary Differential Diagnosis Differential diagnosis: Likely urinary tract infection, urethritis, acute retention of urine and other (Malfunction of Pedroza catheter) Medical Records Attestation: I reviewed the patient's medical records. [facility] Narrative Medical decision making narrative: At this time, the patient appears to be experiencing a Pedroza catheter malfunction. He is currently on antibiotics for UTI and is tolerating this. He denies night sweats, fever or chills. I do not believe that his UTI is worsening. We will replace the patient's Pedroza catheter and prepped him for discharge home. Patient understands the treatment plan. No additional questions at the time of discharge home follow up as requested. Discharge Plan Departure Patient Disposition: Home Clinical Impression: Acute retention of urine Malfunction of Pedroza catheter Qualifiers: Encounter type: initial encounter Qualified Code(s): T83.011A - Breakdown (mechanical) of indwelling urethral catheter, initial encounter Instructions: How to Care for Your Pedroza Catheter -- Male Activity Restrictions/Additional Instructions: Follow-up with your urologist in 1 week as scheduled Return here for any new, emergent concerns Prescriptions: No Action spironolactone 25 mg tablet 12.5 mg PO DAILY tamsulosin 0.4 mg capsule 0.8 mg PO DAILY Qty: 180 3RF Eliquis 5 mg tablet See Rx Instructions .ROUTE .COMPLEX Qty: 180 3RF Dose Instruction: TAKE 1 TABLET TWICE A DAY Rx Instructions: TAKE 1 TABLET TWICE A DAY gabapentin 300 mg capsule See Rx Instructions .ROUTE .COMPLEX Qty: 270 3RF Rx Instructions: 300mg in am and 600mg at bedtime. Disabled Parking See Rx Instructions .ROUTE .COMPLEX Qty: 365 0RF Rx Instructions: I find this patient to be medically disabled and qualified for Disabled Parking as indicated and signed on the accompanying Disabled Parking Application for Individuals (DME) Electric wheelchair See Rx Instructions .Route .MEDSUPPLY Qty: 1 0RF Rx Instructions: As directed pantoprazole 40 mg tablet,delayed release (DR/EC) 40 mg PO DAILY Qty: 90 1RF Entresto 24-26 mg tablet 1 tab PO BID Qty: 180 3RF multivit with min-folic acid 0.4 mg Tablet 1 tab PO DAILY hydrocodone-acetaminophen 5-325 mg tablet 1 tab PO BID PRN Adult 50 Plus Probiotic 4 billion cell capsule 4,000 mmu cells PO DAILY Rx Instructions: administer with a meal melatonin 10 mg capsule 10 mg PO BEDTIME PRN epinephrine 0.3 mg/0.3 mL auto-injector 0.3 mg IM ONCE Rx Instructions: as a single dose; may repeat once Referrals: Matt Lopez MD [Primary Care Provider] - Stand Alone Forms: Patient Portal/API
[2024-01-04] MEDS: LIDOCAINE 2% (GLYDO) 6 ML GEL TOP (15:26)
--- NOTE | 2024-01-04 15:52 | PC.NURSE ---
patient came in for urinating around his 20 fr catheter. His catheter had urine in the bag. The cath was replaced with a new 22fr 10cc balloon. The cath went in smoothly and appeared to have to room in his urethra to go up to a larger size but a 22 fr was chosen to keep from potential trauma to the patient's urethra or internal structures. The patient tolerated the procedure well.
[2024-01-04 16:11] VITALS: BP 115/74; PULSE 74; RESP 16; O2SAT 98
== END 2024-01-04 16:13 | disposition home or self-care (01) ==
PROVIDERS: Emergency Provider Physician Assistant; Family Provider Family Medicine; PCP Family Medicine
DX: R33.8 Other retention of urine (principal); T83.011A Breakdown (mechanical) of indwelling urethral catheter, initial encounter
CPT/HCPCS: 99283

== ENCOUNTER → 2024-01-15 13:48 | Outpatient (CLI) | payer MEDICARE, SELFPAY ==
[2022-03-10 23:31] VITALS: BMI 40.0
[2022-03-11 12:11] VITALS: PULSE 64; RESP 22; O2SAT 98
== END ==
PROVIDERS: Family Provider Family Medicine; PCP Family Medicine; Visit Provider Urology
DX: R39.9 Unspecified symptoms and signs involving the genitourinary system (principal)
CPT/HCPCS: 87086

== ENCOUNTER → 2024-02-08 07:08 | Outpatient (CLI) | payer MEDICARE, SELFPAY ==
[2024-01-24 13:04] VITALS: PULSE 64; RESP 22; O2SAT 98; BMI 40.0
[2024-02-08 08:54] LABS: Cholesterol 151 mg/dL (140-199); HDL Cholesterol 57 mg/dL (40-60); LDL Cholesterol Calculated 79 mg/dL (<100); Triglycerides 77 mg/dL (35-150)
== END ==
PROVIDERS: Family Provider Family Medicine; PCP Family Medicine; Referring Provider Internal Medicine Cardiovascular Disease; Visit Provider Internal Medicine Cardiovascular Disease
DX: I27.20 Pulmonary hypertension, unspecified (principal)
CPT/HCPCS: 36415; 80061

== ENCOUNTER → 2024-03-15 10:54 | Outpatient (CLI) | payer MEDICARE, SELFPAY ==
[2024-01-24 13:04] VITALS: PULSE 64; RESP 22; O2SAT 98; BMI 40.0
[2024-03-15 12:18] LABS: Appearance Urine UA CLEAR; Bilirubin Urine UA NEGATIVE (NEGATIVE); Color Urine UA YELLOW; Glucose Urine UA NEGATIVE (Negative); Ketones Urine UA NEGATIVE (NEGATIVE); Leukocyte Esterase Urine UA TRACE (NEGATIVE); Nitrite Urine UA NEGATIVE (Negative); Occult Blood Urine UA NEGATIVE (Negative); Protein Urine UA NEGATIVE (Negative); Specific Gravity Urine UA 1.015 (1.000-1.035); Urobilinogen Urine UA 0.2 E.U./dL (0.2)
[2024-03-15 12:24] LABS: Urine Volume 10mL (spun)
[2024-03-15 12:25] LABS: Bacteria Urine Occasional (0-1); Culture Indicated Urine Specimen Cultured; RBC Urine 1-5/HPF (0-5/HPF); Squamous Epithelial Cell Urine 1-5 /HPF (0-5/HPF); WBC Urine 10-30/HPF (0-5/HPF)
== END ==
PROVIDERS: Family Provider Family Medicine; PCP Family Medicine; Visit Provider Urology
DX: R33.9 Retention of urine, unspecified (principal)
CPT/HCPCS: 81001; 87086

== ENCOUNTER 2024-03-19 10:56 | Emergency (ER) | payer MEDICARE, SELFPAY ==
[2024-01-24 13:04] VITALS: PULSE 64; RESP 22; O2SAT 98; BMI 40.0
[2024-03-19 11:05] VITALS: BP 127/71; PULSE 72; RESP 16; TEMP 37; O2SAT 96; BMI 40.4
--- NOTE | 2024-03-19 12:06 | ED.BACK ---
HPI - Back Pain/Injury <Maryjane Gonzáles PA-C - Last Filed: 03/19/24 13:40> General Chief Complaint: Back Pain/Injury Stated Complaint: Lower right back pain Time Seen by Provider: 03/19/24 11:30 History of Present Illness HPI Narrative: Mr. Duarte is a very pleasant 73-year-old male with a past medical history of AFib on Eliquis, CHF, CKD, BPH, urinary retention, kidney stones, chronic pain, lower extremity neuropathy who presents to the emergency department for right-sided low back pain x3-4 days. Patient uses a walker/wheelchair and has a full-time caregiver who helps him with ADLs. His is also with him who contributes to the history. Reports that patient did not have a known inciting injury on Monday however he did start using a toilet that is much lower than he is used to. He started complaining of some right-sided low back pain that occasionally radiates down the right leg. This pain has caused him to ambulate with more difficulty than normal. No numbness, tingling, or weakness of the leg. Denies dysuria or gross hematuria but does state that he has chronic microscopic hematuria. Denies fevers or chills. Denies fall. Denies abdominal pain, nausea, vomiting, diarrhea. Denies saddle anesthesia, bowel or bladder incontinence, or difficulty urinating or defecating. Related Data Home Medications Medication Instructions Recorded Confirmed multivitamin with minerals-folic 1 tab PO DAILY 02/17/22 03/13/24 acid 0.4 mg tablet epinephrine 0.3 mg/0.3 mL 0.3 mg IM ONCE 09/11/23 03/13/24 injection, auto-injector hydrocodone 5 mg-acetaminophen 325 1 tab PO BID PRN 09/11/23 03/13/24 mg tablet lactobacillus combination no.9 4 4,000 mmu cells PO DAILY 09/11/23 03/13/24 billion cell capsule (Adult 50 Plus Probiotic) melatonin 10 mg capsule 10 mg PO BEDTIME PRN 09/11/23 03/13/24 Previous Rx's Medication Instructions Recorded apixaban 5 mg tablet (Eliquis) See Rx Instructions .Route 04/27/23 .COMPLEX #180 tabs gabapentin 300 mg capsule See Rx Instructions .Route 09/18/23 .COMPLEX #270 caps Disabled Parking See Rx Instructions .Route 10/10/23 .COMPLEX #365 days Electric wheelchair #1 ea 11/21/23 pantoprazole 40 mg tablet,delayed 40 mg PO DAILY #90 tabs 11/27/23 release sacubitril 24 mg-valsartan 26 mg 1 tab PO BID #180 tabs 12/04/23 tablet (Entresto) tamsulosin 0.4 mg capsule 0.8 mg (2 x 0.4 mg) PO DAILY #180 01/17/24 caps spironolactone 25 mg tablet 12.5 mg (1/2 x 25 mg) PO DAILY PRN 02/14/24 chf #30 tabs hydrocodone 5 mg-acetaminophen 325 1 tab PO Q4-6H PRN pain #10 tabs 03/19/24 mg tablet Allergies Allergy/AdvReac Type Severity Reaction Status Date / Time latex [LATEX] Allergy Intermediate Rash Verified 03/19/24 11:11 nitrofurantoin AdvReac Severe Diarrhea Verified 03/19/24 11:11 MULTIPLE FOOD ALLERGIES Allergy Intermediate STOMACH Uncoded 03/19/24 11:11 CRAMPS,DIARRHEA Review of Systems <Maryjane Gonzáles PA-C - Last Filed: 03/19/24 13:40> Review of Systems ROS Unobtainable: All systems reviewed & are unremarkable except as noted in HPI and below Patient History <Maryjane Gonzáles PA-C - Last Filed: 03/19/24 13:40> Medical History History of sepsis History of kidney stones Urine retention History of pulmonary hypertension Presence of IVC filter Morbid obesity with BMI of 50.0-59.9, adult Pulmonary edema (06/2022) Peripheral neuropathy BPH (benign prostatic hyperplasia) GERD (gastroesophageal reflux disease) Thrombocytopenia Nonischemic cardiomyopathy Severe muscle deconditioning Acute respiratory failure with hypoxia Acute on chronic systolic heart failure Pneumonia Acute hypoxemic respiratory failure Pneumonia Vision disorder Hearing loss Sleep apnea (~1989) Fractures (~1989) Foot pain (~1989) Chronic back pain (~2009) Measles (~1959) Chicken pox (~1959) Irritable bowel syndrome (~2014) Low testosterone (~1989) Deep vein thrombosis (~1989) Atrial fibrillation (~2014) Surgical History Status post implantation of mitral valve leaflet clip (06/10/23) AICD (automatic cardioverter/defibrillator) present (06/13/22) Anesthesia History of back surgery History of tonsillectomy History of surgery (~2015) [place] filter in place (~1992) Social History household members: spouse Smoking Status: Never smoker alcohol intake: current Smoking Status: Never smoker alcohol intake frequency: 0-2 drinks per day Alcohol type: wine Exam <Maryjane Gonzáles PA-C - Last Filed: 03/19/24 13:40> Narrative Exam Narrative: GENERAL: 73 year old patient appears stated age. Obese pt in no acute distress. Sitting in wheelchair, ambulates using a walker to reclining chair. HEAD: Atraumatic. Normocephalic. EYES: Extraocular motions intact. No scleral icterus. No injection or drainage. ENT: Nose without bleeding, purulent drainage. NECK: Trachea midline. Cervical ROM intact. CARDIOVASCULAR: Regular rate and rhythm. RESPIRATORY: ?Nonlabored respirations. ?Speaking in clear, full sentences. ?Clear to auscultation. Breath sounds equal bilaterally. GASTROINTESTINAL: Abdomen soft, non-tender, nondistended. EXTREMITIES: No edema or joint tenderness. Bilateral feet warm and well perfused. Palpable DP pulses. BACK: Nontender without deformity or crepitance. No flank tenderness. Subjective right paraspinal lumbar pain. Negative straight leg raise bilaterally. NEURO: AOx3. ?Clear speech. ?Moves all 4 extremities appropriately. Sensation intact to light touch bilateral lower extremities. SKIN: No rash or erythema of visible areas Initial Vital Signs Initial Vital Signs: Vital Signs Temperature 98.6 F 03/19/24 11:05 Pulse Rate 72 03/19/24 11:05 Respiratory Rate 16 03/19/24 11:05 Blood Pressure 127/71 03/19/24 11:05 Pulse Oximetry 96 03/19/24 11:05 Oxygen Delivery Method Room Air 03/19/24 11:05 <Lázaro Zuniga MD - Last Filed: 03/20/24 08:01> Initial Vital Signs Initial Vital Signs: Vital Signs Temperature 98.6 F 03/19/24 11:05 Pulse Rate 72 03/19/24 11:05 Respiratory Rate 16 03/19/24 11:05 Blood Pressure 127/71 03/19/24 11:05 Pulse Oximetry 96 03/19/24 11:05 Oxygen Delivery Method Room Air 03/19/24 11:05 Course <Maryjane Gonzáles PA-C - Last Filed: 03/19/24 13:40> Orders Ordered: Discontinued Medications Hydrocodone Bitart/Acetaminophen (Hydrocodone/Acet 5/325 Tablet) 1 tab PO NOW ONE Stop: 03/19/24 12:29 Last Admin: 03/19/24 12:50 Dose: 1 tab Documented By: LIAM Lidocaine (Lidocaine 5% Patch) 1 each TOP NOW ONE Stop: 03/19/24 12:29 Last Admin: 03/19/24 12:50 Dose: 1 each Documented By: LIAM Vital Signs Vital signs: Vital Signs - 8 hr 03/19/24 11:05 03/19/24 13:38 Temperature 98.6 F Pulse Rate 72 65 Respiratory Rate 16 16 Blood Pressure 127/71 151/70 H Pulse Oximetry 96 97 Oxygen Delivery Method Room Air Room Air <Lázaro Zuniga MD - Last Filed: 03/20/24 08:01> Orders Ordered: Discontinued Medications Hydrocodone Bitart/Acetaminophen (Hydrocodone/Acet 5/325 Tablet) 1 tab PO NOW ONE Stop: 03/19/24 12:29 Last Admin: 03/19/24 12:50 Dose: 1 tab Documented By: LIAM Lidocaine (Lidocaine 5% Patch) 1 each TOP NOW ONE Stop: 03/19/24 12:29 Last Admin: 03/19/24 12:50 Dose: 1 each Documented By: LIAM Vital Signs Vital signs: Vital Signs - 8 hr 03/19/24 11:05 03/19/24 13:38 Temperature 98.6 F Pulse Rate 72 65 Respiratory Rate 16 16 Blood Pressure 127/71 151/70 H Pulse Oximetry 96 97 Oxygen Delivery Method Room Air Room Air MDM - Back Pain/Injury <Maryjane Gonzáles PA-C - Last Filed: 03/19/24 13:40> Medical Records Attestation: I reviewed the patient's medical records. Lab Data Labs: Lab Results 03/19/24 Range/Units 12:40 Urine RBC 0-1/hpf (0-5/HPF) Urine WBC 5-10/hpf H (0-5/HPF) Ur Squamous Epith Cells 0-1 /hpf (0-5/HPF) Urine Bacteria Occasional (0-1) (None) Ur Culture Indicated? Specimen cultured Vol Urine Centrifuged 10ml (spun) Urine Dip Bedside Urine Glucose Negative Bedside Urine Bilirubin - Negative Bedside Urine Ketone - Negative Urine Specific [place] 1.015 Bedside Urine Occult Blood - Negative Bedside Urine pH 5.5 Bedside Urine Protein +/- 15 Bedside Urine Urobilinogen - Negative Bedside Urine Nitrite - Negative Bedside Urine Leukocytes + 70 Esterase MDM Narrative Medical decision making narrative: 73-year-old male with a past medical history of AFib on Eliquis, CHF, CKD, BPH, urinary retention, kidney stones, chronic pain, lower extremity neuropathy who presents to the emergency department for right-sided low back pain x3-4 days. Differential diagnosis includes but is not limited to lumbar radiculopathy, spinal stenosis, lumbar degenerative disc disease, ureterolithiasis, nephrolithiasis, pyelonephritis, cystitis, etc. On exam the patient is in no acute distress, nontoxic-appearing, all vital signs within normal limits. He has no reproducible pain but he does have subjective pain in the right lumbar paraspinal region worse with movement. Does stand and ambulate independently but with difficulty using his walker. We will obtain urinalysis to rule out infection and treat with hydrocodone-acetaminophen as patient is not appropriate for NSAIDs due to history of CKD and anticoagulation. He is already taken Tylenol without relief. Pain improved with hydrocodone-acetaminophen. Patient is requesting discharge home. I did send him a short course of hydrocodone-acetaminophen as he has not candidate for NSAIDs. Discussed the risks of narcotics and how important it is to prevent falls. UA reveals 5-10 urine WBCs which is actually improved from 4 days ago. Urine culture sent to lab, we will not treat with empiric antibiotics at this time. Patient his verbalized understanding of all information and are requesting discharge home. Patient is stable for discharge home. <Lázaro Zuniga MD - Last Filed: 03/20/24 08:01> Lab Data Labs: Lab Results 03/19/24 Range/Units 12:40 Urine RBC 0-1/hpf (0-5/HPF) Urine WBC 5-10/hpf H (0-5/HPF) Ur Squamous Epith Cells 0-1 /hpf (0-5/HPF) Urine Bacteria Occasional (0-1) (None) Ur Culture Indicated? Specimen cultured Vol Urine Centrifuged 10ml (spun) Urine Dip Bedside Urine Glucose Negative Bedside Urine Bilirubin - Negative Bedside Urine Ketone - Negative Urine Specific [place] 1.015 Bedside Urine Occult Blood - Negative Bedside Urine pH 5.5 Bedside Urine Protein +/- 15 Bedside Urine Urobilinogen - Negative Bedside Urine Nitrite - Negative Bedside Urine Leukocytes + 70 Esterase Discharge Plan Departure Patient Disposition: Home Clinical Impression: Acute lumbar radiculopathy Low back strain Qualifiers: Encounter type: initial encounter Qualified Code(s): S39.012A - Strain of muscle, fascia and tendon of lower back, initial encounter Instructions: DI for Low Back Pain, DI for Back Strain or Sprain Activity Restrictions/Additional Instructions: Today you were evaluated for right-sided low back pain. You were treated with a lidocaine patch and hydrocodone-acetaminophen. I have prescribed you a short course of additional hydrocodone-acetaminophen if needed for severe pain. You may take 500 mg or 650 mg of Tylenol in addition to this medication at the same time. Please rest, do gentle stretching, and follow up with physical therapy on . Please call your primary care office for an ER follow up appointment as soon as possible. Return to the ER if you develop difficulties going to the bathroom, loss of control of your bowels or bladder, leg weakness, or other concerns. You may also take Acetaminophen 650 mg every 4-6 hours for pain. Do not exceed 3000 mg of Tylenol a day as this can cause liver damage. Do not drink alcohol with either of these medications. You have been prescribed a short course of narcotic medications. These are potentially dangerous and addictive medications that should be used carefully. While on these medications you cannot drive or operate heavy machinery. Additionally, you cannot sign legal documents or perform any duties such as this. Many people get constipated on narcotic medications so it would be advisable to discuss stool softeners with the pharmacist when you curing pickling packer your prescription. Please understand that we cannot provide further refills of narcotics or controlled substances through the ED and your pain management will need to be through your Primary Care Provider Please follow up with your primary care doctor within the next 2-3 days for ER follow-up. (If you do not have a PCP you can call [phone]. ?to schedule an appointment with an [facility] Primary Care Provider) IF YOU DEVELOP ANY NEW OR WORSENING SYMPTOMS, RETURN TO THE ER! Please read the attached instructions, they highlight more specific treatments and interventions for you at home. Thank you for letting me participate in your care, Maryjane Gonzáles PA-C Prescriptions: New hydrocodone-acetaminophen 5-325 mg tablet 1 tab PO Q4-6H PRN (Reason: pain) Qty: 10 0RF No Action Eliquis 5 mg tablet See Rx Instructions .ROUTE .COMPLEX Qty: 180 3RF Dose Instruction: TAKE 1 TABLET TWICE A DAY Rx Instructions: TAKE 1 TABLET TWICE A DAY gabapentin 300 mg capsule See Rx Instructions .ROUTE .COMPLEX Qty: 270 3RF Rx Instructions: 300mg in am and 600mg at bedtime. Disabled Parking See Rx Instructions .ROUTE .COMPLEX Qty: 365 0RF Rx Instructions: I find this patient to be medically disabled and qualified for Disabled Parking as indicated and signed on the accompanying Disabled Parking Application for Individuals (DME) Electric wheelchair See Rx Instructions .Route .MEDSUPPLY Qty: 1 0RF Rx Instructions: As directed pantoprazole 40 mg tablet,delayed release (DR/EC) 40 mg PO DAILY Qty: 90 1RF Entresto 24-26 mg tablet 1 tab PO BID Qty: 180 3RF tamsulosin 0.4 mg capsule 0.8 mg PO DAILY Qty: 180 0RF spironolactone 25 mg tablet 12.5 mg PO DAILY PRN (Reason: chf) Qty: 30 0RF multivit with min-folic acid 0.4 mg Tablet 1 tab PO DAILY hydrocodone-acetaminophen 5-325 mg tablet 1 tab PO BID PRN Adult 50 Plus Probiotic 4 billion cell capsule 4,000 mmu cells PO DAILY Rx Instructions: administer with a meal melatonin 10 mg capsule 10 mg PO BEDTIME PRN epinephrine 0.3 mg/0.3 mL auto-injector 0.3 mg IM ONCE Rx Instructions: as a single dose; may repeat once Referrals: Matt Lopez MD [Primary Care Provider] - Stand Alone Forms: Patient Portal/API/Survey ED Sign-out <Lázaro Zuniga MD - Last Filed: 03/20/24 08:01> Cosign ED Attending Lindsay Attestation: I was immediately available in the department for consultation. ?This documentation has been reviewed and I agree with assessment and plan. Supervised by Lázaro Zuniga MD
[2024-03-19] MEDS: LIDOCAINE 5% PATCH 1 EACH TOP (12:50)
[2024-03-19] MEDS: HYDROCODONE/ACET 5/325 TABLET 1 TAB PO (12:50)
[2024-03-19 13:30] LABS: Bacteria Urine Occasional (0-1); Culture Indicated Urine Specimen Cultured; RBC Urine 0-1/HPF (0-5/HPF); Squamous Epithelial Cell Urine 0-1 /HPF (0-5/HPF); Urine Volume 10mL (spun); WBC Urine 5-10/HPF (0-5/HPF)
[2024-03-19 13:38] VITALS: BP 151/70; PULSE 65; RESP 16; O2SAT 97
== END 2024-03-19 13:44 | disposition home or self-care (01) ==
PROVIDERS: Emergency Provider Physician Assistant; Family Provider Family Medicine; PCP Family Medicine
DX: M54.16 Radiculopathy, lumbar region (principal); S39.012A Strain of muscle, fascia and tendon of lower back, initial encounter
CPT/HCPCS: 81003; 81015; 87086; 99283

== ENCOUNTER → 2024-03-25 13:08 | Outpatient (CLI) | payer MEDICARE, SELFPAY ==
[2024-01-24 13:04] VITALS: PULSE 64; RESP 22; O2SAT 98; BMI 40.0
--- NOTE | 2024-03-25 13:10 | DI.RAD.S_ITS ---
PROCEDURE: XR LUMBAR SPINE 2-3V INDICATIONS: lumbar spine pain TECHNIQUE: 3 views of the lumbar spine were acquired. COMPARISON: None. FINDINGS: Bones: Right 5 [id number] vertebrae are present. There is right were curvature of lower lumbar spine centered at L4 level. Loss of disc height, degenerative endplate changes and bilateral facet arthrosis throughout lumbar spine is seen.. No vertebral body compression fractures. No suspicious bony lesions. Soft tissues: IVC filter is seen. Overlying bowel gas pattern is normal. No suspicious soft tissue calcifications. IMPRESSION: Moderate degenerative disc disease throughout lumbar spine. Mild levoscoliosis of lower lumbar spine centered at L4 level. No acute vertebral body compression fracture. Dictated by: Jose Antonio Sanford M.D. on 03/25/2024 at 15:05 Approved by: Jose Antonio Sanford M.D. on 03/25/2024 at 15:06
== END ==
PROVIDERS: Family Provider Family Medicine; PCP Family Medicine; Referring Provider Family Medicine; Visit Provider Family Medicine
DX: S39.012A Strain of muscle, fascia and tendon of lower back, initial encounter (principal); M51.369 Other intervertebral disc degeneration, lumbar region without mention of lumbar back pain or lower extremity pain; M41.9 Scoliosis, unspecified; X58.XXXA Exposure to other specified factors, initial encounter
CPT/HCPCS: 72100

== ENCOUNTER → 2024-04-22 16:22 | Outpatient (CLI) | payer MEDICARE, SELFPAY ==
[2024-01-24 13:04] VITALS: PULSE 64; RESP 22; O2SAT 98; BMI 40.0
[2024-04-22 17:08] LABS: BUN Creatinine Ratio 32.3 (6-22); Blood Urea Nitrogen 51 mg/dL (9-20); Calcium 9.7 mg/dL (8.4-10.2); Carbon Dioxide 28 mmol/L (22-32); Chloride 106 mmol/L (98-107); Estimated Glomerular Filt Rate 45 mL/min (>60); Glucose 108 mg/dL (80-110); HEMOLYSIS 19 (0-50); Magnesium 1.9 mg/dL (1.6-2.3); Potassium 5.3 mmol/L (3.4-5.1); Sodium 139 mmol/L (137-145)
[2024-04-22 17:39] LABS: TSH w/ Reflex to FT4 2.48 uIU/mL (0.47-4.68)
== END ==
PROVIDERS: Family Provider Family Medicine; PCP Family Medicine; Referring Provider Internal Medicine Cardiovascular Disease; Visit Provider Internal Medicine Cardiovascular Disease
DX: I50.23 Acute on chronic systolic (congestive) heart failure (principal); I48.11 Longstanding persistent atrial fibrillation; I27.20 Pulmonary hypertension, unspecified
CPT/HCPCS: 36415; 80048; 83735; 84443

== ENCOUNTER → 2024-04-26 07:05 | Outpatient (CLI) | payer MEDICARE, SELFPAY ==
[2024-01-24 13:04] VITALS: PULSE 64; RESP 22; O2SAT 98; BMI 40.0
[2024-04-26 08:46] LABS: BUN Creatinine Ratio 24.8 (6-22); Blood Urea Nitrogen 34 mg/dL (9-20); Calcium 9.8 mg/dL (8.4-10.2); Carbon Dioxide 28 mmol/L (22-32); Chloride 105 mmol/L (98-107); Estimated Glomerular Filt Rate 53 mL/min (>60); Glucose 84 mg/dL (80-110); HEMOLYSIS < 15 (0-50); Magnesium 1.7 mg/dL (1.6-2.3); Potassium 4.7 mmol/L (3.4-5.1); Sodium 139 mmol/L (137-145)
[2024-04-26 08:57] LABS: T4 Total Thyroxine 8.27 ug/dL (5.5-11.0)
[2024-04-26 09:11] LABS: Thyroid Stimulating Hormone 3.63 uIU/mL (0.47-4.68)
== END ==
PROVIDERS: Family Provider Family Medicine; PCP Family Medicine; Referring Provider Internal Medicine Cardiovascular Disease; Visit Provider Internal Medicine Cardiovascular Disease
DX: I49.01 Ventricular fibrillation (principal); I50.20 Unspecified systolic (congestive) heart failure; I46.9 Cardiac arrest, cause unspecified
CPT/HCPCS: 36415; 80048; 83735; 84436; 84443

== ENCOUNTER 2024-05-07 13:45 | Outpatient (RCR) | payer MEDICARE, SELFPAY ==
[2022-03-10 23:31] VITALS: BMI 40.0
[2022-03-11 12:11] VITALS: PULSE 64; RESP 22; O2SAT 98
--- NOTE | 2023-11-15 14:30 | PT.OIE ---
Current Diagnoses Other symptoms and signs involving the musculoskeletal system (11/15/23) Weakness (11/15/23) Other malaise (11/15/23) Past Medical History (Last Reviewed 09/24/23 @ 04:44 by Yahaira Mckeon DO) Acute hypoxemic respiratory failure Acute on chronic systolic heart failure Acute respiratory failure with hypoxia Atrial fibrillation (~2014) BPH (benign prostatic hyperplasia) Chicken pox (~1959) Chronic back pain (~2009) Deep vein thrombosis (~1989) Foot pain (~1989) Fractures (~1989) GERD (gastroesophageal reflux disease) Hearing loss History of kidney stones History of pulmonary hypertension History of sepsis Irritable bowel syndrome (~2014) Low testosterone (~1989) Measles (~1959) Morbid obesity with BMI of 50.0-59.9, adult Nonischemic cardiomyopathy Peripheral neuropathy Pneumonia Pneumonia Presence of IVC filter Pulmonary edema (06/2022) Severe muscle deconditioning Sleep apnea (~1989) Thrombocytopenia Urine retention Vision disorder Past Surgical History (Last Reviewed 09/24/23 @ 04:44 by Yahaira Mckeon DO) AICD (automatic cardioverter/defibrillator) present (06/13/22) Anesthesia Mehdi filter in place (~1992) History of back surgery History of surgery (~2015) History of tonsillectomy Status post implantation of mitral valve leaflet clip (06/10/23) Visit Care Team Role Provider Type Matt Lopez MD Attending Provider Physician Family Provider Primary Care Provider Referring Provider Specialty: [facility] Address: [address] [place] [address] Email: [email or web address] Physical Therapy Initial Evaluation PT-OP-A Visit Information Start: 11/15/23 16:26 Freq: Status: Active Protocol: Document 11/15/23 13:45 DCW (Rec: 11/15/23 16:33 DCW [id number]) Out-Patient Physical Therapy Visit Information Visit Information Visit Type Initial Evaluation Visit Start Time 13:45 Visit Stop Time 14:25 Visit Number 1 Number of P[employer]ODU[employer]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 Pt is well known to this clinic, and has been treated at this facility for the same symptoms multiple times over the past three years. Health complications initially began February 2021 with a severe bacterial infection, resulting in a months-long hospitalization requiring time on a ventilator, and then spent time at a rehab facility , not returning home until October 2021. Pt at that time wheelchair bound, severe weakness in lower extremities, particularly his ankles. Pt has experienced other health complications in the past two years, mainly involving cardiac issues, including an [place] and pacemaker placement, which both interrupted his rehabilitation from his illness. Pt was most recently treated at this facility earlier this year, was discharged 06/06/23 due to planned heart surgery. Pt has since had clips placed on his mitral and tricuspid valves/ Overall, pt continues to mobilize mainly in his w/c, however is spending time walking in his home with a FWW , and has been more independent with transfers. Pt previously wwas using full AFOs due to bilateral drop foot, however has switched to a softer ankler brace which clips to his shoe to limit drop foot, which offers less stability but makes standing from his w/c much easier due to allowing more ankle mobility and better LE positioning. Has recently been getting treatment for a UTI, although recently had to stop the antibiotics due to GI issues. Continues to exhibit general deconditioning, bilateral ankle weakness, decreased activity tolerance, poor balance, and increased dependence for IADLs/ADLs. Treatment Goals Patient/Caregiver Goals Pt's goals are to be able to ascend/descend stairs and to start to walk using a cane instead of a FWW. PT-OP-C Subjective Start: 11/15/23 16:26 Freq: Status: Active Protocol: Document 11/15/23 13:45 DCW (Rec: 11/15/23 16:33 DCW [id number]) OP-PT Subjective Patient Comments Patient Comments Pt happier with new ankle braces, although admits they are not as supportive as his previous AFOs. PT-OP-E Functional Tests Start: 11/15/23 16:26 Freq: Status: Active Protocol: Document 11/15/23 13:45 DCW (Rec: 11/15/23 16:33 DCW [id number]) Functional Tests 2 Minute Walk Test Distance 103' Device Used FWW Comments 0.85 ft/sec 30 Second Sit to Stand Test Score x6 repetitions from w/c Comments unable to perform full leg extension Timed Up and Go (TUG) Score 62.02 /c FWW TUG Impairment Rating 100% Impaired (Score 20) PT-OP-G Mobility & Gait Start: 11/15/23 16:26 Freq: Status: Active Protocol: Document 11/15/23 13:45 DCW (Rec: 11/15/23 16:33 DCW [id number]) OP Gait Assessment Comments Gait Comments Pt ambulates with heavy use of UEs on FWW, ankle braces due to foot drop. Poor foot clearance, forward trunk flexion during gait. PT-OP-M Strength Start: 11/15/23 16:26 Freq: Status: Active Protocol: Document 11/15/23 13:45 DCW (Rec: 11/15/23 16:33 DCW [id number]) Hip Strength Hip Manual Muscle Testing Right Flexion (L2) 4 Good Abduction 4+ Good+ Adduction 4+ Good+ External Rotation 4 Good Internal Rotation 4 Good Left Flexion (L2) 4 Good Abduction 4+ Good+ Adduction 4+ Good+ External Rotation 4- Good- Internal Rotation 4 Good Knee Strength Knee Manual Muscle Testing Right Flexion (S2) 4- Good- Extension (L3) 4+ Good+ Left Flexion (S2) 4 Good Extension (L3) 4+ Good+ Ankle/Foot Strength Ankle and Foot Manual Muscle Testing Right Dorsiflexion (L4) 2 Poor Plantarflexion (S1) 2- Poor- Left Dorsiflexion (L4) 2- Poor- Plantarflexion (S1) 1 Trace PT-OP-T Assessment and Plan Start: 11/15/23 16:26 Freq: Status: Active Protocol: Document 11/15/23 13:45 DCW (Rec: 11/16/23 10:20 DCW [id number]) Physical Therapy Assessment Rehab Potential Rehabilitation Potential Fair Evaluation Complexity Number of Personal Factors/Comorbidities 3 or More Number of Body Systems Impaired 4 or More Clinical Presentation at Evaluation Unstable Impairments Impairments Activity Tolerance,Balance, Coordination,Functional Activities,Functional Mobility ,Gait,Posture,ROM,Soft Tissue Mobility,Strength,Tone, Transfers Goals One Impairment Pt does not have an appropriate home exercise program Short Term Goal (STG) Pt to be independent and compliant with an appropriate HEP STG Duration 01/13/24 Three Impairment Pt ambulates 103' over the course of a two minute walk test [employer] Salesperson Goal (LTG) Pt to ambulate >600' using a FWW during a 6MWT in order to demonstrate decreasing burden of care and improved ability to perform ADLs independently. LTG Duration 02/13/24 Two Impairment TUG score of 62.02 /c FWW indicates increased risk of falls [employer] Salesperson Goal (LTG) Pt to improve TUG score using his FWW by at least 22 seconds to 40 in order to demonstrate improved gait ability and greater activity tolerance LTG Duration 02/13/24 Assessment Summary Assessment Pt presents with a highly complex medical history, limiting his participation in his IADLs and ADLs. Pt mobility largely confined to manual w/c, does spend some time ambulation with FWW, however does not perform much more than walking around home. Has shown some improvement since last round of PT with increased ease of sit<->stand transfers, completing 6 repetitions during a 30 second StS test, compared to taking 1'20 to complete five repetitions when last seen earlier this year. Leg strength overall is improved, however still exhibits severe weakness in bilateral ankles. Shoulder ROM and strength fairly poor, which restricts pt using UEs during transfers. Pt should benefit from skilled therapy focusing on LE and UE strengthening, gait training, balance challenges, improving activity tolerance, and increasing functional independence. Physical Therapy Plan Frequency and Duration Frequency of Treatment 2x/Week Plan of Care Start Date 11/15/23 Plan of Care End Date 02/13/24 Therapeutic Interventions Therapeutic Interventions Balance Training,Coordination Training,Gait Training,Home Exercise Program,Manual Therapy,Neuromuscular Re- education,Patient/Caregiver Education,Self-Care/Home Management,Soft Tissue Mobilization,Therapeutic Activities,Therapeutic Exercises,Wheelchair Management Next Visit Focus/Plan Next Note Type Treatment Note Next Visit Plan LE/UE/core strengthening, gait and stair training, balance challenges, increasing activity tolerance
--- NOTE | 2023-11-21 15:22 | PT.OTN ---
Current Diagnoses Other symptoms and signs involving the musculoskeletal system (11/21/23) Weakness (11/21/23) Other malaise (11/21/23) Physical Therapy Treatment Note PT-OP-A Visit Information Start: 11/15/23 16:26 Freq: Status: Active Protocol: Document 11/21/23 14:30 DCW (Rec: 11/21/23 15:22 DCW [id number]) Out-Patient Physical Therapy Visit Information Visit Information Visit Type Treatment Note Visit Start Time 14:30 Visit Stop Time 15:15 Visit Number 2 PT-OP-B Current Condition Start: 11/15/23 16:26 Freq: Status: Active Protocol: Document 11/15/23 13:45 DCW (Rec: 11/16/23 10:20 DCW [id number]) Current Condition History of Current Condition Onset Date February 2021 Current Complaints Weakness, decreased activity tolerance, poor balance, physical debility History of Current Condition Pt is a 73 year old male presenting with a multi-year, highly complex medical history . Pt is well known to this clinic, and has been treated at this facility for the same symptoms multiple times over the past three years. Health complications initially began February 2021 with a severe bacterial infection, resulting in a months-long hospitalization requiring time on a ventilator, and then spent time at a rehab facility , not returning home until October 2021. Pt at that time wheelchair bound, severe weakness in lower extremities, particularly his ankles. Pt has experienced other health complications in the past two years, mainly involving cardiac issues, including an [place] and pacemaker placement, which both interrupted his rehabilitation from his illness. Pt was most recently treated at this facility earlier this year, was discharged 06/06/23 due to planned heart surgery. Pt has since had clips placed on his mitral and tricuspid valves/ Overall, pt continues to mobilize mainly in his w/c, however is spending time walking in his home with a FWW , and has been more independent with transfers. Pt previously wwas using full AFOs due to bilateral drop foot, however has switched to a softer ankler brace which clips to his shoe to limit drop foot, which offers less stability but makes standing from his w/c much easier due to allowing more ankle mobility and better LE positioning. Has recently been getting treatment for a UTI, although recently had to stop the antibiotics due to GI issues. Continues to exhibit general deconditioning, bilateral ankle weakness, decreased activity tolerance, poor balance, and increased dependence for IADLs/ADLs. Treatment Goals Patient/Caregiver Goals Pt's goals are to be able to ascend/descend stairs and to start to walk using a cane instead of a FWW. PT-OP-C Subjective Start: 11/15/23 16:26 Freq: Status: Active Protocol: Document 11/21/23 14:30 DCW (Rec: 11/21/23 15:22 DCW [id number]) OP-PT Subjective Patient Comments Patient Comments Pt notes he is doing well today, but he is fatigued by his morning workout. PT-OP-E Functional Tests Start: 11/15/23 16:26 Freq: Status: Active Protocol: Document 11/15/23 13:45 DCW (Rec: 11/15/23 16:33 DCW [id number]) Functional Tests 2 Minute Walk Test Distance 103' Device Used FWW Comments 0.85 ft/sec 30 Second Sit to Stand Test Score x6 repetitions from w/c Comments unable to perform full leg extension Timed Up and Go (TUG) Score 62.02 /c FWW TUG Impairment Rating 100% Impaired (Score 20) PT-OP-G Mobility & Gait Start: 11/15/23 16:26 Freq: Status: Active Protocol: Document 11/15/23 13:45 DCW (Rec: 11/15/23 16:33 DCW [id number]) OP Gait Assessment Comments Gait Comments Pt ambulates with heavy use of UEs on FWW, ankle braces due to foot drop. Poor foot clearance, forward trunk flexion during gait. PT-OP-M Strength Start: 11/15/23 16:26 Freq: Status: Active Protocol: Document 11/15/23 13:45 DCW (Rec: 11/15/23 16:33 DCW [id number]) Hip Strength Hip Manual Muscle Testing Right Flexion (L2) 4 Good Abduction 4+ Good+ Adduction 4+ Good+ External Rotation 4 Good Internal Rotation 4 Good Left Flexion (L2) 4 Good Abduction 4+ Good+ Adduction 4+ Good+ External Rotation 4- Good- Internal Rotation 4 Good Knee Strength Knee Manual Muscle Testing Right Flexion (S2) 4- Good- Extension (L3) 4+ Good+ Left Flexion (S2) 4 Good Extension (L3) 4+ Good+ Ankle/Foot Strength Ankle and Foot Manual Muscle Testing Right Dorsiflexion (L4) 2 Poor Plantarflexion (S1) 2- Poor- Left Dorsiflexion (L4) 2- Poor- Plantarflexion (S1) 1 Trace PT-OP-Q Treatments Start: 11/15/23 16:26 Freq: Status: Active Protocol: Document 11/21/23 14:30 DCW (Rec: 11/21/23 15:22 DCW [id number]) Gym Equipment Shuttle Recovery Bilateral Squats Resistance 75# (3 navy) Shuttle Recovery Platform Stable Reps/Time x50 Gait Training Gait Activity // bars Description Fwd/Retro ambulation, side- stepping Device Used // bars Level of Assistance CBA Comments UEs as little as possible Neuro Re-Education Treatment Balance Activities Foam Details NBOS Surface AirEx Tandem Details Tandem Stance Equipment // bars PT-OP-T Assessment and Plan Start: 11/15/23 16:26 Freq: Status: Active Protocol: Document 11/21/23 14:30 DCW (Rec: 11/21/23 15:22 DCW [id number]) Physical Therapy Assessment Impairments Impairments Activity Tolerance,Balance, Coordination,Functional Activities,Functional Mobility ,Gait,Posture,ROM,Soft Tissue Mobility,Strength,Tone, Transfers Goals One Impairment Pt does not have an appropriate home exercise program Short Term Goal (STG) Pt to be independent and compliant with an appropriate HEP STG Duration 01/13/24 Three Impairment Pt ambulates 103' over the course of a two minute walk test Skilled Nursing Goal (LTG) Pt to ambulate >600' using a FWW during a 6MWT in order to demonstrate decreasing burden of care and improved ability to perform ADLs independently. LTG Duration 02/13/24 Two Impairment TUG score of 62.02 /c FWW indicates increased risk of falls Scrap Hooker Goal (LTG) Pt to improve TUG score using his FWW by at least 22 seconds to 40 in order to demonstrate improved gait ability and greater activity tolerance LTG Duration 02/13/24 Assessment Summary Assessment Pt continues to heavily rely on upper extremities during gait/balance, had difficulty performing balance exercises in standing while letting go with one/both hands. Continue to focus on activity tolerance , strengthening, gait, and balance Physical Therapy Plan Frequency and Duration Frequency of Treatment 2x/Week Plan of Care Start Date 11/15/23 Plan of Care End Date 02/13/24 Therapeutic Interventions Therapeutic Interventions Balance Training,Coordination Training,Gait Training,Home Exercise Program,Manual Therapy,Neuromuscular Re- education,Patient/Caregiver Education,Self-Care/Home Management,Soft Tissue Mobilization,Therapeutic Activities,Therapeutic Exercises,Wheelchair Management Next Visit Focus/Plan Next Note Type Treatment Note Next Visit Plan LE/UE/core strengthening, gait and stair training, balance challenges, increasing activity tolerance
--- NOTE | 2023-11-23 15:17 | PT.OTN ---
Current Diagnoses Other symptoms and signs involving the musculoskeletal system (11/23/23) Weakness (11/23/23) Other malaise (11/23/23) Physical Therapy Treatment Note PT-OP-A Visit Information Start: 11/15/23 16:26 Freq: Status: Active Protocol: Document 11/23/23 14:30 DCW (Rec: 11/23/23 15:17 DCW [id number]) Out-Patient Physical Therapy Visit Information Visit Information Visit Type Treatment Note Visit Start Time 14:30 Visit Stop Time 15:15 Visit Number 2 PT-OP-B Current Condition Start: 11/15/23 16:26 Freq: Status: Active Protocol: Document 11/15/23 13:45 DCW (Rec: 11/16/23 10:20 DCW [id number]) Current Condition History of Current Condition Onset Date February 2021 Current Complaints Weakness, decreased activity tolerance, poor balance, physical debility History of Current Condition Pt is a 73 year old male presenting with a multi-year, highly complex medical history . Pt is well known to this clinic, and has been treated at this facility for the same symptoms multiple times over the past three years. Health complications initially began February 2021 with a severe bacterial infection, resulting in a months-long hospitalization requiring time on a ventilator, and then spent time at a rehab facility , not returning home until October 2021. Pt at that time wheelchair bound, severe weakness in lower extremities, particularly his ankles. Pt has experienced other health complications in the past two years, mainly involving cardiac issues, including an [place] and pacemaker placement, which both interrupted his rehabilitation from his illness. Pt was most recently treated at this facility earlier this year, was discharged 06/06/23 due to planned heart surgery. Pt has since had clips placed on his mitral and tricuspid valves/ Overall, pt continues to mobilize mainly in his w/c, however is spending time walking in his home with a FWW , and has been more independent with transfers. Pt previously wwas using full AFOs due to bilateral drop foot, however has switched to a softer ankler brace which clips to his shoe to limit drop foot, which offers less stability but makes standing from his w/c much easier due to allowing more ankle mobility and better LE positioning. Has recently been getting treatment for a UTI, although recently had to stop the antibiotics due to GI issues. Continues to exhibit general deconditioning, bilateral ankle weakness, decreased activity tolerance, poor balance, and increased dependence for IADLs/ADLs. Treatment Goals Patient/Caregiver Goals Pt's goals are to be able to ascend/descend stairs and to start to walk using a cane instead of a FWW. PT-OP-C Subjective Start: 11/15/23 16:26 Freq: Status: Active Protocol: Document 11/23/23 14:30 DCW (Rec: 11/23/23 15:17 DCW [id number]) OP-PT Subjective Patient Comments Patient Comments Pt admits he was sore following last visit. PT-OP-E Functional Tests Start: 11/15/23 16:26 Freq: Status: Active Protocol: Document 11/15/23 13:45 DCW (Rec: 11/15/23 16:33 DCW [id number]) Functional Tests 2 Minute Walk Test Distance 103' Device Used FWW Comments 0.85 ft/sec 30 Second Sit to Stand Test Score x6 repetitions from w/c Comments unable to perform full leg extension Timed Up and Go (TUG) Score 62.02 /c FWW TUG Impairment Rating 100% Impaired (Score 20) PT-OP-G Mobility & Gait Start: 11/15/23 16:26 Freq: Status: Active Protocol: Document 11/15/23 13:45 DCW (Rec: 11/15/23 16:33 DCW [id number]) OP Gait Assessment Comments Gait Comments Pt ambulates with heavy use of UEs on FWW, ankle braces due to foot drop. Poor foot clearance, forward trunk flexion during gait. PT-OP-M Strength Start: 11/15/23 16:26 Freq: Status: Active Protocol: Document 11/15/23 13:45 DCW (Rec: 11/15/23 16:33 DCW [id number]) Hip Strength Hip Manual Muscle Testing Right Flexion (L2) 4 Good Abduction 4+ Good+ Adduction 4+ Good+ External Rotation 4 Good Internal Rotation 4 Good Left Flexion (L2) 4 Good Abduction 4+ Good+ Adduction 4+ Good+ External Rotation 4- Good- Internal Rotation 4 Good Knee Strength Knee Manual Muscle Testing Right Flexion (S2) 4- Good- Extension (L3) 4+ Good+ Left Flexion (S2) 4 Good Extension (L3) 4+ Good+ Ankle/Foot Strength Ankle and Foot Manual Muscle Testing Right Dorsiflexion (L4) 2 Poor Plantarflexion (S1) 2- Poor- Left Dorsiflexion (L4) 2- Poor- Plantarflexion (S1) 1 Trace PT-OP-Q Treatments Start: 11/15/23 16:26 Freq: Status: Active Protocol: Document 11/23/23 14:30 DCW (Rec: 11/23/23 15:17 DCW [id number]) Gym Equipment Shuttle Recovery Unilateral Squats Resistance 50# Bilateral Squats Resistance 87# Shuttle Recovery Platform Stable Therapeutic Exercises Sitting Exercises Ball Lift Sitting Exercise Name Ball from opposite hip to overhead Side bilateral Resistance Red - 3.3# ball Gait Training Gait Activity // bars Description Fwd/Retro ambulation, side- stepping Device Used // bars Level of Assistance CBA Comments UEs as little as possible Neuro Re-Education Treatment Balance Activities Weight Shift Details Lateral weight-shift Tandem Details Tandem Stance Equipment // bars PT-OP-T Assessment and Plan Start: 11/15/23 16:26 Freq: Status: Active Protocol: Document 11/23/23 14:30 DCW (Rec: 11/23/23 15:17 DCW [id number]) Physical Therapy Assessment Impairments Impairments Activity Tolerance,Balance, Coordination,Functional Activities,Functional Mobility ,Gait,Posture,ROM,Soft Tissue Mobility,Strength,Tone, Transfers Goals One Impairment Pt does not have an appropriate home exercise program Short Term Goal (STG) Pt to be independent and compliant with an appropriate HEP STG Duration 01/13/24 Three Impairment Pt ambulates 103' over the course of a two minute walk test [employer] Marine Engineer Goal (LTG) Pt to ambulate >600' using a FWW during a 6MWT in order to demonstrate decreasing burden of care and improved ability to perform ADLs independently. LTG Duration 02/13/24 Two Impairment TUG score of 62.02 /c FWW indicates increased risk of falls Detention Goal (LTG) Pt to improve TUG score using his FWW by at least 22 seconds to 40 in order to demonstrate improved gait ability and greater activity tolerance LTG Duration 02/13/24 Assessment Summary Assessment Pt fairly fatigued by end of session, did well with addition of UE mobility/ strengthening to help with push-off and transfers. Physical Therapy Plan Frequency and Duration Frequency of Treatment 2x/Week Plan of Care Start Date 11/15/23 Plan of Care End Date 02/13/24 Therapeutic Interventions Therapeutic Interventions Balance Training,Coordination Training,Gait Training,Home Exercise Program,Manual Therapy,Neuromuscular Re- education,Patient/Caregiver Education,Self-Care/Home Management,Soft Tissue Mobilization,Therapeutic Activities,Therapeutic Exercises,Wheelchair Management Next Visit Focus/Plan Next Note Type Treatment Note Next Visit Plan LE/UE/core strengthening, gait and stair training, balance challenges, increasing activity tolerance
--- NOTE | 2023-11-28 15:15 | PT.OTN ---
Current Diagnoses Other symptoms and signs involving the musculoskeletal system (11/28/23) Weakness (11/28/23) Other malaise (11/28/23) Physical Therapy Treatment Note PT-OP-A Visit Information Start: 11/15/23 16:26 Freq: Status: Active Protocol: Document 11/28/23 14:30 DCW (Rec: 11/28/23 15:15 DCW [id number]) Out-Patient Physical Therapy Visit Information Visit Information Visit Type Treatment Note Visit Start Time 14:30 Visit Stop Time 15:15 Visit Number 4 Number of STAKES PLAYER Visits 0 Evaluation Information Evaluation Date 11/15/23 PT-OP-B Current Condition Start: 11/15/23 16:26 Freq: Status: Active Protocol: Document 11/15/23 13:45 DCW (Rec: 11/16/23 10:20 DCW [id number]) Current Condition History of Current Condition Onset Date February 2021 Current Complaints Weakness, decreased activity tolerance, poor balance, physical debility History of Current Condition Pt is a 73 year old male presenting with a multi-year, highly complex medical history . Pt is well known to this clinic, and has been treated at this facility for the same symptoms multiple times over the past three years. Health complications initially began February 2021 with a severe bacterial infection, resulting in a months-long hospitalization requiring time on a ventilator, and then spent time at a rehab facility , not returning home until October 2021. Pt at that time wheelchair bound, severe weakness in lower extremities, particularly his ankles. Pt has experienced other health complications in the past two years, mainly involving cardiac issues, including an [place] and pacemaker placement, which both interrupted his rehabilitation from his illness. Pt was most recently treated at this facility earlier this year, was discharged 06/06/23 due to planned heart surgery. Pt has since had clips placed on his mitral and tricuspid valves/ Overall, pt continues to mobilize mainly in his w/c, however is spending time walking in his home with a FWW , and has been more independent with transfers. Pt previously wwas using full AFOs due to bilateral drop foot, however has switched to a softer ankler brace which clips to his shoe to limit drop foot, which offers less stability but makes standing from his w/c much easier due to allowing more ankle mobility and better LE positioning. Has recently been getting treatment for a UTI, although recently had to stop the antibiotics due to GI issues. Continues to exhibit general deconditioning, bilateral ankle weakness, decreased activity tolerance, poor balance, and increased dependence for IADLs/ADLs. Treatment Goals Patient/Caregiver Goals Pt's goals are to be able to ascend/descend stairs and to start to walk using a cane instead of a FWW. PT-OP-C Subjective Start: 11/15/23 16:26 Freq: Status: Active Protocol: Document 11/28/23 14:30 DCW (Rec: 11/28/23 15:15 DCW [id number]) OP-PT Subjective Patient Comments Patient Comments Pt had a lousy morning, spent most of his day in the restroom due to GI issues. PT-OP-E Functional Tests Start: 11/15/23 16:26 Freq: Status: Active Protocol: Document 11/15/23 13:45 DCW (Rec: 11/15/23 16:33 DCW [id number]) Functional Tests 2 Minute Walk Test Distance 103' Device Used FWW Comments 0.85 ft/sec 30 Second Sit to Stand Test Score x6 repetitions from w/c Comments unable to perform full leg extension Timed Up and Go (TUG) Score 62.02 /c FWW TUG Impairment Rating 100% Impaired (Score 20) PT-OP-G Mobility & Gait Start: 11/15/23 16:26 Freq: Status: Active Protocol: Document 11/15/23 13:45 DCW (Rec: 11/15/23 16:33 DCW [id number]) OP Gait Assessment Comments Gait Comments Pt ambulates with heavy use of UEs on FWW, ankle braces due to foot drop. Poor foot clearance, forward trunk flexion during gait. PT-OP-M Strength Start: 11/15/23 16:26 Freq: Status: Active Protocol: Document 11/15/23 13:45 DCW (Rec: 11/15/23 16:33 DCW [id number]) Hip Strength Hip Manual Muscle Testing Right Flexion (L2) 4 Good Abduction 4+ Good+ Adduction 4+ Good+ External Rotation 4 Good Internal Rotation 4 Good Left Flexion (L2) 4 Good Abduction 4+ Good+ Adduction 4+ Good+ External Rotation 4- Good- Internal Rotation 4 Good Knee Strength Knee Manual Muscle Testing Right Flexion (S2) 4- Good- Extension (L3) 4+ Good+ Left Flexion (S2) 4 Good Extension (L3) 4+ Good+ Ankle/Foot Strength Ankle and Foot Manual Muscle Testing Right Dorsiflexion (L4) 2 Poor Plantarflexion (S1) 2- Poor- Left Dorsiflexion (L4) 2- Poor- Plantarflexion (S1) 1 Trace PT-OP-Q Treatments Start: 11/15/23 16:26 Freq: Status: Active Protocol: Document 11/28/23 14:30 DCW (Rec: 11/28/23 15:15 DCW [id number]) Gym Equipment Shuttle Recovery Unilateral Squats Resistance 50# Bilateral Squats Resistance 125# Shuttle Recovery Platform Stable Reps/Time x50 Gait Training Gait Activity // bars Description Fwd/Retro ambulation, side- stepping Device Used // bars Level of Assistance CBA Comments UEs as little as possible Neuro Re-Education Treatment Balance Activities Hurdles Details Hurdles Equipment // bars, 2# Trevon Tandem Details Tandem Stance Equipment // bars PT-OP-T Assessment and Plan Start: 11/15/23 16:26 Freq: Status: Active Protocol: Document 11/28/23 14:30 DCW (Rec: 11/28/23 15:15 DCW [id number]) Physical Therapy Assessment Impairments Impairments Activity Tolerance,Balance, Coordination,Functional Activities,Functional Mobility ,Gait,Posture,ROM,Soft Tissue Mobility,Strength,Tone, Transfers Goals One Impairment Pt does not have an appropriate home exercise program Short Term Goal (STG) Pt to be independent and compliant with an appropriate HEP STG Duration 01/13/24 Three Impairment Pt ambulates 103' over the course of a two minute walk test Aluminum Molding Machine Operator Goal (LTG) Pt to ambulate >600' using a FWW during a 6MWT in order to demonstrate decreasing burden of care and improved ability to perform ADLs independently. LTG Duration 02/13/24 Two Impairment TUG score of 62.02 /c FWW indicates increased risk of falls Aluminum Molding Machine Operator Goal (LTG) Pt to improve TUG score using his FWW by at least 22 seconds to 40 in order to demonstrate improved gait ability and greater activity tolerance LTG Duration 02/13/24 Assessment Summary Assessment Added hurdles today with ankle weights, initially struggled, but able to clear feet most attempts. Still struggling with ankle strategies during balance Physical Therapy Plan Frequency and Duration Frequency of Treatment 2x/Week Plan of Care Start Date 11/15/23 Plan of Care End Date 02/13/24 Therapeutic Interventions Therapeutic Interventions Balance Training,Coordination Training,Gait Training,Home Exercise Program,Manual Therapy,Neuromuscular Re- education,Patient/Caregiver Education,Self-Care/Home Management,Soft Tissue Mobilization,Therapeutic Activities,Therapeutic Exercises,Wheelchair Management Next Visit Focus/Plan Next Note Type Treatment Note Next Visit Plan LE/UE/core strengthening, gait and stair training, balance challenges, increasing activity tolerance
--- NOTE | 2023-11-30 15:17 | PT.OTN ---
Current Diagnoses Other symptoms and signs involving the musculoskeletal system (11/30/23) Weakness (11/30/23) Other malaise (11/30/23) Physical Therapy Treatment Note PT-OP-A Visit Information Start: 11/15/23 16:26 Freq: Status: Active Protocol: Document 11/30/23 14:30 DCW (Rec: 11/30/23 15:17 DCW [id number]) Out-Patient Physical Therapy Visit Information Visit Information Visit Type Treatment Note Visit Start Time 14:30 Visit Stop Time 15:15 Visit Number 5 Number of TELEPHONE CLEANER Visits 0 Evaluation Information Evaluation Date 11/15/23 PT-OP-B Current Condition Start: 11/15/23 16:26 Freq: Status: Active Protocol: Document 11/15/23 13:45 DCW (Rec: 11/16/23 10:20 DCW [id number]) Current Condition History of Current Condition Onset Date February 2021 Current Complaints Weakness, decreased activity tolerance, poor balance, physical debility History of Current Condition Pt is a 73 year old male presenting with a multi-year, highly complex medical history . Pt is well known to this clinic, and has been treated at this facility for the same symptoms multiple times over the past three years. Health complications initially began February 2021 with a severe bacterial infection, resulting in a months-long hospitalization requiring time on a ventilator, and then spent time at a rehab facility , not returning home until October 2021. Pt at that time wheelchair bound, severe weakness in lower extremities, particularly his ankles. Pt has experienced other health complications in the past two years, mainly involving cardiac issues, including an [place] and pacemaker placement, which both interrupted his rehabilitation from his illness. Pt was most recently treated at this facility earlier this year, was discharged 06/06/23 due to planned heart surgery. Pt has since had clips placed on his mitral and tricuspid valves/ Overall, pt continues to mobilize mainly in his w/c, however is spending time walking in his home with a FWW , and has been more independent with transfers. Pt previously wwas using full AFOs due to bilateral drop foot, however has switched to a softer ankler brace which clips to his shoe to limit drop foot, which offers less stability but makes standing from his w/c much easier due to allowing more ankle mobility and better LE positioning. Has recently been getting treatment for a UTI, although recently had to stop the antibiotics due to GI issues. Continues to exhibit general deconditioning, bilateral ankle weakness, decreased activity tolerance, poor balance, and increased dependence for IADLs/ADLs. Treatment Goals Patient/Caregiver Goals Pt's goals are to be able to ascend/descend stairs and to start to walk using a cane instead of a FWW. 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 PT-OP-E Functional Tests Start: 11/15/23 16:26 Freq: Status: Active Protocol: Document 11/15/23 13:45 DCW (Rec: 11/15/23 16:33 DCW [id number]) Functional Tests 2 Minute Walk Test Distance 103' Device Used FWW Comments 0.85 ft/sec 30 Second Sit to Stand Test Score x6 repetitions from w/c Comments unable to perform full leg extension Timed Up and Go (TUG) Score 62.02 /c FWW TUG Impairment Rating 100% Impaired (Score 20) PT-OP-G Mobility & Gait Start: 11/15/23 16:26 Freq: Status: Active Protocol: Document 11/15/23 13:45 DCW (Rec: 11/15/23 16:33 DCW [id number]) OP Gait Assessment Comments Gait Comments Pt ambulates with heavy use of UEs on FWW, ankle braces due to foot drop. Poor foot clearance, forward trunk flexion during gait. PT-OP-M Strength Start: 11/15/23 16:26 Freq: Status: Active Protocol: Document 11/15/23 13:45 DCW (Rec: 11/15/23 16:33 DCW [id number]) Hip Strength Hip Manual Muscle Testing Right Flexion (L2) 4 Good Abduction 4+ Good+ Adduction 4+ Good+ External Rotation 4 Good Internal Rotation 4 Good Left Flexion (L2) 4 Good Abduction 4+ Good+ Adduction 4+ Good+ External Rotation 4- Good- Internal Rotation 4 Good Knee Strength Knee Manual Muscle Testing Right Flexion (S2) 4- Good- Extension (L3) 4+ Good+ Left Flexion (S2) 4 Good Extension (L3) 4+ Good+ Ankle/Foot Strength Ankle and Foot Manual Muscle Testing Right Dorsiflexion (L4) 2 Poor Plantarflexion (S1) 2- Poor- Left Dorsiflexion (L4) 2- Poor- Plantarflexion (S1) 1 Trace PT-OP-Q Treatments Start: 11/15/23 16:26 Freq: Status: Active Protocol: Document 11/30/23 14:30 DCW (Rec: 11/30/23 15:17 [facility] [id number]) Gym Equipment Shuttle Recovery Unilateral Squats Resistance 50# Bilateral Squats Resistance 100# Shuttle Recovery Platform Stable Reps/Time x50 Therapeutic Exercises Sitting Exercises Dorsiflexion Sitting Exercise Name Active ankle DF Side bilateral Neuro Re-Education Treatment Balance Activities Hurdles Details Hurdles Equipment // bars, 2# Trevon Comments Fwd, Side-stepping Tandem Details Tandem Stance Equipment // bars PT-OP-T Assessment and Plan Start: 11/15/23 16:26 Freq: Status: Active Protocol: Document 11/30/23 14:30 DCW (Rec: 11/30/23 15:17 [facility] [id number]) Physical Therapy Assessment Impairments Impairments Activity Tolerance,Balance, Coordination,Functional Activities,Functional Mobility ,Gait,Posture,ROM,Soft Tissue Mobility,Strength,Tone, Transfers Goals One Impairment Pt does not have an appropriate home exercise program Short Term Goal (STG) Pt to be independent and compliant with an appropriate HEP STG Duration 01/13/24 Three Impairment Pt ambulates 103' over the course of a two minute walk test Detention Goal (LTG) Pt to ambulate >600' using a FWW during a 6MWT in order to demonstrate decreasing burden of care and improved ability to perform ADLs independently. LTG Duration 02/13/24 Two Impairment TUG score of 62.02 /c FWW indicates increased risk of falls Donor Relations Associate Goal (LTG) Pt to improve TUG score using his FWW by at least 22 seconds to 40 in order to demonstrate improved gait ability and greater activity tolerance LTG Duration 02/13/24 Assessment Summary Assessment Pt tolerated well, good response to gait and balance challenges. Pt demonstrating improved transfers. Physical Therapy Plan Frequency and Duration Frequency of Treatment 2x/Week Plan of Care Start Date 11/15/23 Plan of Care End Date 02/13/24 Therapeutic Interventions Therapeutic Interventions Balance Training,Coordination Training,Gait Training,Home Exercise Program,Manual Therapy,Neuromuscular Re- education,Patient/Caregiver Education,Self-Care/Home Management,Soft Tissue Mobilization,Therapeutic Activities,Therapeutic Exercises,Wheelchair Management Next Visit Focus/Plan Next Note Type Treatment Note Next Visit Plan LE/UE/core strengthening, gait and stair training, balance challenges, increasing activity tolerance
--- NOTE | 2023-12-07 16:57 | PT.OTN ---
Current Diagnoses Other symptoms and signs involving the musculoskeletal system (12/07/23) Weakness (12/07/23) Other malaise (12/07/23) Physical Therapy Treatment Note PT-OP-A Visit Information Start: 11/15/23 16:26 Freq: Status: Active Protocol: Document 12/07/23 13:50 SW (Rec: 12/07/23 14:32 SW [id number]) Out-Patient Physical Therapy Visit Information Visit Information Visit Type Treatment Note Visit Start Time 13:47 Visit Stop Time 15:27 Visit Number 6 PT-OP-B Current Condition Start: 11/15/23 16:26 Freq: Status: Active Protocol: Document 11/15/23 13:45 DCW (Rec: 11/16/23 10:20 DCW [id number]) Current Condition History of Current Condition Onset Date February 2021 Current Complaints Weakness, decreased activity tolerance, poor balance, physical debility History of Current Condition Pt is a 73 year old male presenting with a multi-year, highly complex medical history . Pt is well known to this clinic, and has been treated at this facility for the same symptoms multiple times over the past three years. Health complications initially began February 2021 with a severe bacterial infection, resulting in a months-long hospitalization requiring time on a ventilator, and then spent time at a rehab facility , not returning home until October 2021. Pt at that time wheelchair bound, severe weakness in lower extremities, particularly his ankles. Pt has experienced other health complications in the past two years, mainly involving cardiac issues, including an [place] and pacemaker placement, which both interrupted his rehabilitation from his illness. Pt was most recently treated at this facility earlier this year, was discharged 06/06/23 due to planned heart surgery. Pt has since had clips placed on his mitral and tricuspid valves/ Overall, pt continues to mobilize mainly in his w/c, however is spending time walking in his home with a FWW , and has been more independent with transfers. Pt previously wwas using full AFOs due to bilateral drop foot, however has switched to a softer ankler brace which clips to his shoe to limit drop foot, which offers less stability but makes standing from his w/c much easier due to allowing more ankle mobility and better LE positioning. Has recently been getting treatment for a UTI, although recently had to stop the antibiotics due to GI issues. Continues to exhibit general deconditioning, bilateral ankle weakness, decreased activity tolerance, poor balance, and increased dependence for IADLs/ADLs. Treatment Goals Patient/Caregiver Goals Pt's goals are to be able to ascend/descend stairs and to start to walk using a cane instead of a FWW. PT-OP-C Subjective Start: 11/15/23 16:26 Freq: Status: Active Protocol: Document 12/07/23 13:50 SW (Rec: 12/07/23 14:32 SW [id number]) OP-PT Subjective Patient Comments Patient Comments Pt reported getting the magnets in the bottom of shoes for pain, feels like feet are alseep. got machine sends current up leg notices a little more movement. PT-OP-E Functional Tests Start: 11/15/23 16:26 Freq: Status: Active Protocol: Document 11/15/23 13:45 DCW (Rec: 11/15/23 16:33 DCW [id number]) Functional Tests 2 Minute Walk Test Distance 103' Device Used FWW Comments 0.85 ft/sec 30 Second Sit to Stand Test Score x6 repetitions from w/c Comments unable to perform full leg extension Timed Up and Go (TUG) Score 62.02 /c FWW TUG Impairment Rating 100% Impaired (Score 20) PT-OP-G Mobility & Gait Start: 11/15/23 16:26 Freq: Status: Active Protocol: Document 11/15/23 13:45 DCW (Rec: 11/15/23 16:33 DCW [id number]) OP Gait Assessment Comments Gait Comments Pt ambulates with heavy use of UEs on FWW, ankle braces due to foot drop. Poor foot clearance, forward trunk flexion during gait. PT-OP-M Strength Start: 11/15/23 16:26 Freq: Status: Active Protocol: Document 11/15/23 13:45 DCW (Rec: 11/15/23 16:33 DCW [id number]) Hip Strength Hip Manual Muscle Testing Right Flexion (L2) 4 Good Abduction 4+ Good+ Adduction 4+ Good+ External Rotation 4 Good Internal Rotation 4 Good Left Flexion (L2) 4 Good Abduction 4+ Good+ Adduction 4+ Good+ External Rotation 4- Good- Internal Rotation 4 Good Knee Strength Knee Manual Muscle Testing Right Flexion (S2) 4- Good- Extension (L3) 4+ Good+ Left Flexion (S2) 4 Good Extension (L3) 4+ Good+ Ankle/Foot Strength Ankle and Foot Manual Muscle Testing Right Dorsiflexion (L4) 2 Poor Plantarflexion (S1) 2- Poor- Left Dorsiflexion (L4) 2- Poor- Plantarflexion (S1) 1 Trace PT-OP-Q Treatments Start: 11/15/23 16:26 Freq: Status: Active Protocol: Document 12/07/23 13:50 SW (Rec: 12/07/23 14:32 [id number]) Gym Equipment Shuttle Recovery Unilateral Squats Resistance 50# Bilateral Squats Resistance 100# Shuttle Recovery Platform Stable Reps/Time x50 Gait Training Gait Activity // bars Description Fwd/Retro ambulation, side- stepping Device Used // bars Level of Assistance CBA Comments UEs as little as possible Neuro Re-Education Treatment Balance Activities Hurdles Details Hurdles Equipment // bars, 2# Trevon Comments Fwd, Side-stepping PT-OP-T Assessment and Plan Start: 11/15/23 16:26 Freq: Status: Active Protocol: Document 12/07/23 13:50 SW (Rec: 12/07/23 14:32 [id number]) Physical Therapy Assessment Goals One Impairment Pt does not have an appropriate home exercise program Short Term Goal (STG) Pt to be independent and compliant with an appropriate HEP STG Duration 01/13/24 Three Impairment Pt ambulates 103' over the course of a two minute walk test Impairment 05/02/23: 1:20.90 Longterm Goal (LTG) Pt to ambulate >600' using a FWW during a 6MWT in order to demonstrate decreasing burden of care and improved ability to perform ADLs independently. LTG Duration 02/13/24 Two Impairment TUG score of 62.02 /c FWW indicates increased risk of falls Impairment 05/02/23: 6MWT 410' Longterm Goal (LTG) Pt to improve TUG score using his FWW by at least 22 seconds to 40 in order to demonstrate improved gait ability and greater activity tolerance LTG Duration 02/13/24 Assessment Summary Assessment Continued focus on strength, gait, activity tolerance and balance challenges for progress toward pt goals. Heavy reliance from UE this session during ambulation in / / bars. Minimal pain reported in knees during therex, though pt reports not as bad as it does get. Focused on dorsiflexion to decrease circumduction during obstacle clearance. Physical Therapy Plan Frequency and Duration Frequency of Treatment 2x/Week Plan of Care Start Date 11/15/23 Plan of Care End Date 02/13/24 Therapeutic Interventions Therapeutic Interventions Balance Training,Coordination Training,Gait Training,Home Exercise Program,Manual Therapy,Neuromuscular Re- education,Patient/Caregiver Education,Self-Care/Home Management,Soft Tissue Mobilization,Therapeutic Activities,Therapeutic Exercises,Wheelchair Management Next Visit Focus/Plan Next Note Type Treatment Note Next Visit Plan LE/UE/core strengthening, gait and stair training, balance challenges, increasing activity tolerance
--- NOTE | 2023-12-14 15:25 | PT.OTN ---
Current Diagnoses Other symptoms and signs involving the musculoskeletal system (12/14/23) Weakness (12/14/23) Other malaise (12/14/23) Physical Therapy Treatment Note PT-OP-A Visit Information Start: 11/15/23 16:26 Freq: Status: Active Protocol: Document 12/14/23 14:38 SP (Rec: 12/14/23 16:16 SP [id number]) Out-Patient Physical Therapy Visit Information Visit Information Visit Type Treatment Note Visit Note [facility] 8 min late for appt. Visit Start Time 14:38 Visit Stop Time 15:25 Visit Number 7 Number of [facility] Visits 1 Evaluation Information Evaluation Date 11/15/23 PT-OP-B Current Condition Start: 11/15/23 16:26 Freq: Status: Active Protocol: Document 11/15/23 13:45 DCW (Rec: 11/16/23 10:20 DCW [id number]) Current Condition History of Current Condition Onset Date February 2021 Current Complaints Weakness, decreased activity tolerance, poor balance, physical debility History of Current Condition Pt is a 73 year old male presenting with a multi-year, highly complex medical history . Pt is well known to this clinic, and has been treated at this facility for the same symptoms multiple times over the past three years. Health complications initially began February 2021 with a severe bacterial infection, resulting in a months-long hospitalization requiring time on a ventilator, and then spent time at a rehab facility , not returning home until October 2021. Pt at that time wheelchair bound, severe weakness in lower extremities, particularly his ankles. Pt has experienced other health complications in the past two years, mainly involving cardiac issues, including an [place] and pacemaker placement, which both interrupted his rehabilitation from his illness. Pt was most recently treated at this facility earlier this year, was discharged 06/06/23 due to planned heart surgery. Pt has since had clips placed on his mitral and tricuspid valves/ Overall, pt continues to mobilize mainly in his w/c, however is spending time walking in his home with a FWW , and has been more independent with transfers. Pt previously wwas using full AFOs due to bilateral drop foot, however has switched to a softer ankler brace which clips to his shoe to limit drop foot, which offers less stability but makes standing from his w/c much easier due to allowing more ankle mobility and better LE positioning. Has recently been getting treatment for a UTI, although recently had to stop the antibiotics due to GI issues. Continues to exhibit general deconditioning, bilateral ankle weakness, decreased activity tolerance, poor balance, and increased dependence for IADLs/ADLs. Treatment Goals Patient/Caregiver Goals Pt's goals are to be able to ascend/descend stairs and to start to walk using a cane instead of a FWW. PT-OP-C Subjective Start: 11/15/23 16:26 Freq: Status: Active Protocol: Document 12/14/23 14:38 SP (Rec: 12/14/23 16:16 SP [id number]) OP-PT Subjective Patient Comments Patient Comments Pt arrives with ankle DF foot drop strap that affixes to shoe laces. He reports has copper shoe insoles to help stimulate feet and uses a portable TENS stimulator on ankles/ lower legs for approx 15 min to help with regaining ankle mobility and strength to walk better. Pt reports puts 17 lb wts on B LEs and performs LAQ and uses momentum . PT-OP-E Functional Tests Start: 11/15/23 16:26 Freq: Status: Active Protocol: Document 11/15/23 13:45 DCW (Rec: 11/15/23 16:33 DCW [id number]) Functional Tests 2 Minute Walk Test Distance 103' Device Used FWW Comments 0.85 ft/sec 30 Second Sit to Stand Test Score x6 repetitions from w/c Comments unable to perform full leg extension Timed Up and Go (TUG) Score 62.02 /c FWW TUG Impairment Rating 100% Impaired (Score 20) PT-OP-G Mobility & Gait Start: 11/15/23 16:26 Freq: Status: Active Protocol: Document 11/15/23 13:45 DCW (Rec: 11/15/23 16:33 DCW [id number]) OP Gait Assessment Comments Gait Comments Pt ambulates with heavy use of UEs on FWW, ankle braces due to foot drop. Poor foot clearance, forward trunk flexion during gait. PT-OP-M Strength Start: 11/15/23 16:26 Freq: Status: Active Protocol: Document 11/15/23 13:45 DCW (Rec: 11/15/23 16:33 DCW [id number]) Hip Strength Hip Manual Muscle Testing Right Flexion (L2) 4 Good Abduction 4+ Good+ Adduction 4+ Good+ External Rotation 4 Good Internal Rotation 4 Good Left Flexion (L2) 4 Good Abduction 4+ Good+ Adduction 4+ Good+ External Rotation 4- Good- Internal Rotation 4 Good Knee Strength Knee Manual Muscle Testing Right Flexion (S2) 4- Good- Extension (L3) 4+ Good+ Left Flexion (S2) 4 Good Extension (L3) 4+ Good+ Ankle/Foot Strength Ankle and Foot Manual Muscle Testing Right Dorsiflexion (L4) 2 Poor Plantarflexion (S1) 2- Poor- Left Dorsiflexion (L4) 2- Poor- Plantarflexion (S1) 1 Trace PT-OP-Q Treatments Start: 11/15/23 16:26 Freq: Status: Active Protocol: Document 12/14/23 14:38 SP (Rec: 12/14/23 16:16 SP [id number]) Gym Equipment Shuttle Recovery Unilateral Squats Details cued not lock out knees Resistance 50# 2 navy Reps/Time 50 reps each LE Bilateral Squats Resistance 100# 4 [email or web address] Shuttle Recovery Platform Stable Reps/Time x50 Therapeutic Exercises Sitting Exercises Dorsiflexion Sitting Exercise Name Active ankle DF Side bilateral Resistance AROM /c tapping Tibialis Anterior Reps/Minutes 5 Sh [id number] x2 sets Comments improved slight more range /c tapping (not performing FROM) Therapeutic Activity Therapeutic Activity stand step pivot transfer Name use FWW: w/c<>shuttle recovery , pivot turns sit<>stand // bars Reps/Minutes x4 reps Comments Pt relies heavily on BUE not needed added trunk support, GB use for safety. cues increase BLE step clearance, and reach back BUE vs 1 UE for improved controlled descend sit. Gait Training Gait Activity // bars Description Fwd/Retro ambulation, side- stepping Device Used // bars Level of Assistance CBA Treatment Focus 10 ft 2 laps each direction Comments UEs as little as possible, reports 25% on //bars Neuro Re-Education Treatment Balance Activities Hurdles Details Hurdles Equipment // bars, 2#>3# Trevon Comments Fwd (continue side stepping next tx) reports 25% BUE WB on //bars but [facility] thinks demonstrates more Tandem Details Tandem>SemiTandem walking- fwd , bwd Equipment // bars Reps/Duration 10 ft x2 laps total Comments cued soft R knee during midstance which decreased crepitus in knee, demonstrates slight ER L foot Movement Re-Education Movement Re-education Activities PRovided tapping to tib anterior during DF AROM ther ex which demonstrated slight increase in active range R>LLE , not measured. Cues to pt hold contraction lift for full 5 sec. Self-Care/Home Management Treatment Education Patient Education Home Exercise Program Other Education [facility] discussed with pt for applying wt on ankles that is challenging but that can successsfully perform LAQ at home to progress strengthening , pt verbalized understanding. Activities Self-Care/Home Management Activities [facility] discussed with pt and to bring portable stim unit to see if can update setting to perform like [place] stim and be sure to perform self DF while stim unit stimulates ankle DFs thus providing neuromuscular re-education. Both verbalized understanding would like therapist to look at his settings and assist next tx so can provide isometric hold as did in PT today with tapping, noted increased self DF AROM. PT-OP-T Assessment and Plan Start: 11/15/23 16:26 Freq: Status: Active Protocol: Document 12/14/23 14:38 SP (Rec: 12/14/23 16:16 SP [id number]) Physical Therapy Assessment Goals One Impairment Pt does not have an appropriate home exercise program Short Term Goal (STG) Pt to be independent and compliant with an appropriate HEP STG Duration 01/13/24 Three Impairment Pt ambulates 103' over the course of a two minute walk test Impairment 05/02/23: 1:20.90 Fpc Goal (LTG) Pt to ambulate >600' using a FWW during a 6MWT in order to demonstrate decreasing burden of care and improved ability to perform ADLs independently. LTG Duration 02/13/24 Two Impairment TUG score of 62.02 /c FWW indicates increased risk of falls Impairment 05/02/23: 6MWT 410' [employer] Goal (LTG) Pt to improve TUG score using his FWW by at least 22 seconds to 40 in order to demonstrate improved gait ability and greater activity tolerance LTG Duration 02/13/24 Assessment Summary Assessment Pt tolerated tx well, demonstrated improved DF with tapping tibialis anterior today. Discussed bringing home portable unit to look at and see if can change home setting to provide [place] stim with self DF neuromuscular re- education due to noted increase AROM with facilitated tapping this tx. Pt tolerated increased weight during standing activities today, cues for more upright posture and try less BUE WB if safe and support LE funcitional strengthening. Physical Therapy Plan Frequency and Duration Frequency of Treatment 2x/Week Plan of Care Start Date 11/15/23 Plan of Care End Date 02/13/24 Therapeutic Interventions Therapeutic Interventions Balance Training,Coordination Training,Gait Training,Home Exercise Program,Manual Therapy,Neuromuscular Re- education,Patient/Caregiver Education,Self-Care/Home Management,Soft Tissue Mobilization,Therapeutic Activities,Therapeutic Exercises,Wheelchair Management Next Visit Focus/Plan Next Note Type Treatment Note Next Visit Plan Check settings on home Stim unit if can provide [place] stim neuromuscular re-ed carryover home for improved DF . POC: LE/UE/core strengthening, gait and stair training, balance challenges, increasing activity tolerance
--- NOTE | 2023-12-18 15:59 | PT.OTN ---
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 Pt is well known to this clinic, and has been treated at this facility for the same symptoms multiple times over the past three years. Health complications initially began February 2021 with a severe bacterial infection, resulting in a months-long hospitalization requiring time on a ventilator, and then spent time at a rehab facility , not returning home until October 2021. Pt at that time wheelchair bound, severe weakness in lower extremities, particularly his ankles. Pt has experienced other health complications in the past two years, mainly involving cardiac issues, including an [place] and pacemaker placement, which both interrupted his rehabilitation from his illness. Pt was most recently treated at this facility earlier this year, was discharged 06/06/23 due to planned heart surgery. Pt has since had clips placed on his mitral and tricuspid valves/ Overall, pt continues to mobilize mainly in his w/c, however is spending time walking in his home with a FWW , and has been more independent with transfers. Pt previously wwas using full AFOs due to bilateral drop foot, however has switched to a softer ankler brace which clips to his shoe to limit drop foot, which offers less stability but makes standing from his w/c much easier due to allowing more ankle mobility and better LE positioning. Has recently been getting treatment for a UTI, although recently had to stop the antibiotics due to GI issues. Continues to exhibit general deconditioning, bilateral ankle weakness, decreased activity tolerance, poor balance, and increased dependence for IADLs/ADLs. Treatment Goals Patient/Caregiver Goals Pt's goals are to be able to ascend/descend stairs and to start to walk using a cane instead of a FWW. PT-OP-C Subjective Start: 11/15/23 16:26 Freq: Status: Active Protocol: Document 12/18/23 15:15 DCW (Rec: 12/18/23 15:58 DCW [id number]) OP-PT Subjective Patient Comments Patient Comments Pt notes still learning to use his TENS unit, has figured out how to get a zap vs a tingle. PT-OP-E Functional Tests Start: 11/15/23 16:26 Freq: Status: Active Protocol: Document 11/15/23 13:45 DCW (Rec: 11/15/23 16:33 DCW [id number]) Functional Tests 2 Minute Walk Test Distance 103' Device Used FWW Comments 0.85 ft/sec 30 Second Sit to Stand Test Score x6 repetitions from w/c Comments unable to perform full leg extension Timed Up and Go (TUG) Score 62.02 /c FWW TUG Impairment Rating 100% Impaired (Score 20) PT-OP-G Mobility & Gait Start: 11/15/23 16:26 Freq: Status: Active Protocol: Document 11/15/23 13:45 DCW (Rec: 11/15/23 16:33 DCW [id number]) OP Gait Assessment Comments Gait Comments Pt ambulates with heavy use of UEs on FWW, ankle braces due to foot drop. Poor foot clearance, forward trunk flexion during gait. PT-OP-M Strength Start: 11/15/23 16:26 Freq: Status: Active Protocol: Document 11/15/23 13:45 DCW (Rec: 11/15/23 16:33 DCW [id number]) Hip Strength Hip Manual Muscle Testing Right Flexion (L2) 4 Good Abduction 4+ Good+ Adduction 4+ Good+ External Rotation 4 Good Internal Rotation 4 Good Left Flexion (L2) 4 Good Abduction 4+ Good+ Adduction 4+ Good+ External Rotation 4- Good- Internal Rotation 4 Good Knee Strength Knee Manual Muscle Testing Right Flexion (S2) 4- Good- Extension (L3) 4+ Good+ Left Flexion (S2) 4 Good Extension (L3) 4+ Good+ Ankle/Foot Strength Ankle and Foot Manual Muscle Testing Right Dorsiflexion (L4) 2 Poor Plantarflexion (S1) 2- Poor- Left Dorsiflexion (L4) 2- Poor- Plantarflexion (S1) 1 Trace PT-OP-Q Treatments Start: 11/15/23 16:26 Freq: Status: Active Protocol: Document 12/18/23 15:15 DCW (Rec: 12/18/23 15:58 DCW [id number]) Gym Equipment Shuttle Recovery Unilateral Squats Resistance 50# Bilateral Squats Resistance 100# Shuttle Recovery Platform Stable Reps/Time x50 Therapeutic Exercises Sitting Exercises Horizontal Abduction Sitting Exercise Name UE Horizontal Abd/adduction in 90 deg flexion/abduction Side bilateral Resistance Red ball 3.3# Ball Lift Sitting Exercise Name Ball from opposite hip to overhead Side bilateral Resistance Red - 3.3# ball Gait Training Gait Activity // bars Description Fwd/Retro ambulation, side- stepping Device Used // bars Level of Assistance CBA Comments UEs as little as possible Neuro Re-Education Treatment Balance Activities Weight Shift Details Lateral weight-shift - Balloon Volley Equipment // bars PT-OP-T Assessment and Plan Start: 11/15/23 16:26 Freq: Status: Active Protocol: Document 12/18/23 15:15 DCW (Rec: 12/18/23 15:58 DCW [id number]) Physical Therapy Assessment Goals One Impairment Pt does not have an appropriate home exercise program Short Term Goal (STG) Pt to be independent and compliant with an appropriate HEP STG Duration 01/13/24 Three Impairment Pt ambulates 103' over the course of a two minute walk test Impairment 05/02/23: 1:20.90 [facility] Goal (LTG) Pt to ambulate >600' using a FWW during a 6MWT in order to demonstrate decreasing burden of care and improved ability to perform ADLs independently. LTG Duration 02/13/24 Two Impairment TUG score of 62.02 /c FWW indicates increased risk of falls Impairment 05/02/23: 6MWT 410' Market Development Analyst Goal (LTG) Pt to improve TUG score using his FWW by at least 22 seconds to 40 in order to demonstrate improved gait ability and greater activity tolerance LTG Duration 02/13/24 Assessment Summary Assessment Pt using NMES on home unit as directed by [facility] in [place]. Continue to focus on balance, strength, and functional mobility to improve independent function and decrease falls risk. Physical Therapy Plan Frequency and Duration Frequency of Treatment 2x/Week Plan of Care Start Date 11/15/23 Plan of Care End Date 02/13/24 Therapeutic Interventions Therapeutic Interventions Balance Training,Coordination Training,Gait Training,Home Exercise Program,Manual Therapy,Neuromuscular Re- education,Patient/Caregiver Education,Self-Care/Home Management,Soft Tissue Mobilization,Therapeutic Activities,Therapeutic Exercises,Wheelchair Management Next Visit Focus/Plan Next Note Type Treatment Note Next Visit Plan POC: LE/UE/core strengthening, gait and stair training, balance challenges, increasing activity tolerance
--- NOTE | 2023-12-20 14:29 | PT.OTN ---
Current Diagnoses Other symptoms and signs involving the musculoskeletal system (12/20/23) Weakness (12/20/23) Other malaise (12/20/23) Physical Therapy Treatment Note PT-OP-A Visit Information Start: 11/15/23 16:26 Freq: Status: Active Protocol: Document 12/20/23 13:49 SP (Rec: 12/20/23 14:31 SP [id number]) Out-Patient Physical Therapy Visit Information Visit Information Visit Type Treatment Note Visit Start Time 13:49 Visit Stop Time 14:29 Visit Number [address] Visits 1 Evaluation Information Evaluation Date 11/15/23 PT-OP-B Current Condition Start: 11/15/23 16:26 Freq: Status: Active Protocol: Document 11/15/23 13:45 DCW (Rec: 11/16/23 10:20 DCW [id number]) Current Condition History of Current Condition Onset Date February 2021 Current Complaints Weakness, decreased activity tolerance, poor balance, physical debility History of Current Condition Pt is a 73 year old male presenting with a multi-year, highly complex medical history . Pt is well known to this clinic, and has been treated at this facility for the same symptoms multiple times over the past three years. Health complications initially began February 2021 with a severe bacterial infection, resulting in a months-long hospitalization requiring time on a ventilator, and then spent time at a rehab facility , not returning home until October 2021. Pt at that time wheelchair bound, severe weakness in lower extremities, particularly his ankles. Pt has experienced other health complications in the past two years, mainly involving cardiac issues, including an [place] and pacemaker placement, which both interrupted his rehabilitation from his illness. Pt was most recently treated at this facility earlier this year, was discharged 06/06/23 due to planned heart surgery. Pt has since had clips placed on his mitral and tricuspid valves/ Overall, pt continues to mobilize mainly in his w/c, however is spending time walking in his home with a FWW , and has been more independent with transfers. Pt previously wwas using full AFOs due to bilateral drop foot, however has switched to a softer ankler brace which clips to his shoe to limit drop foot, which offers less stability but makes standing from his w/c much easier due to allowing more ankle mobility and better LE positioning. Has recently been getting treatment for a UTI, although recently had to stop the antibiotics due to GI issues. Continues to exhibit general deconditioning, bilateral ankle weakness, decreased activity tolerance, poor balance, and increased dependence for IADLs/ADLs. Treatment Goals Patient/Caregiver Goals Pt's goals are to be able to ascend/descend stairs and to start to walk using a cane instead of a FWW. PT-OP-C Subjective Start: 11/15/23 16:26 Freq: Status: Active Protocol: Document 12/20/23 13:49 SP (Rec: 12/20/23 14:31 SP [id number]) OP-PT Subjective Patient Comments Patient Comments Pt reports looking into new AFOs for BLEs to help support foot clearing when walking, the strap/buckle on his shoes isn't enough support. PT-OP-E Functional Tests Start: 11/15/23 16:26 Freq: Status: Active Protocol: Document 11/15/23 13:45 DCW (Rec: 11/15/23 16:33 DCW [id number]) Functional Tests 2 Minute Walk Test Distance 103' Device Used FWW Comments 0.85 ft/sec 30 Second Sit to Stand Test Score x6 repetitions from w/c Comments unable to perform full leg extension Timed Up and Go (TUG) Score 62.02 /c FWW TUG Impairment Rating 100% Impaired (Score 20) PT-OP-G Mobility & Gait Start: 11/15/23 16:26 Freq: Status: Active Protocol: Document 11/15/23 13:45 DCW (Rec: 11/15/23 16:33 DCW [id number]) OP Gait Assessment Comments Gait Comments Pt ambulates with heavy use of UEs on FWW, ankle braces due to foot drop. Poor foot clearance, forward trunk flexion during gait. PT-OP-M Strength Start: 11/15/23 16:26 Freq: Status: Active Protocol: Document 11/15/23 13:45 DCW (Rec: 11/15/23 16:33 DCW [id number]) Hip Strength Hip Manual Muscle Testing Right Flexion (L2) 4 Good Abduction 4+ Good+ Adduction 4+ Good+ External Rotation 4 Good Internal Rotation 4 Good Left Flexion (L2) 4 Good Abduction 4+ Good+ Adduction 4+ Good+ External Rotation 4- Good- Internal Rotation 4 Good Knee Strength Knee Manual Muscle Testing Right Flexion (S2) 4- Good- Extension (L3) 4+ Good+ Left Flexion (S2) 4 Good Extension (L3) 4+ Good+ Ankle/Foot Strength Ankle and Foot Manual Muscle Testing Right Dorsiflexion (L4) 2 Poor Plantarflexion (S1) 2- Poor- Left Dorsiflexion (L4) 2- Poor- Plantarflexion (S1) 1 Trace PT-OP-Q Treatments Start: 11/15/23 16:26 Freq: Status: Active Protocol: Document 12/20/23 13:49 SP (Rec: 12/20/23 14:31 SP [id number]) Gym Equipment Shuttle Recovery Unilateral Squats Details cued not lock out knees Resistance 50# Reps/Time 50 reps each LE Bilateral Squats Resistance 100# Shuttle Recovery Platform Stable Reps/Time x50 Therapeutic Exercises Sitting Exercises LE walking in wc Reps/Minutes across gym various area transition to Comments cued increase LE HS curl engagement for strengthening Gait Training Gait Activity FWW Device Used FWW Distance/Duration 152 ft Treatment Focus foot clearance & stride, proximal to FWW UE support needed Neuro Re-Education Treatment Balance Activities Foam Details WBOS, stride stance Surface AirEx Equipment //bars Comments Min- Mod A- L ft fwd R Ft fwd- 3-4 sec PT-OP-T Assessment and Plan Start: 11/15/23 16:26 Freq: Status: Active Protocol: Document 12/20/23 13:49 SP (Rec: 12/20/23 14:31 SP [id number]) Physical Therapy Assessment Goals One Impairment Pt does not have an appropriate home exercise program Short Term Goal (STG) Pt to be independent and compliant with an appropriate HEP STG Duration 01/13/24 Three Impairment Pt ambulates 103' over the course of a two minute walk test Impairment 05/02/23: 1:20.90 [employer] Development Team Lead Goal (LTG) Pt to ambulate >600' using a FWW during a 6MWT in order to demonstrate decreasing burden of care and improved ability to perform ADLs independently. LTG Duration 02/13/24 Two Impairment TUG score of 62.02 /c FWW indicates increased risk of falls Impairment 05/02/23: 6MWT 410' Usp Goal (LTG) Pt to improve TUG score using his FWW by at least 22 seconds to 40 in order to demonstrate improved gait ability and greater activity tolerance LTG Duration 02/13/24 Assessment Summary Assessment Pt improved endurance in gait with FWW today 152 ft with w/c follow by PT Aide for support if needed. Cues for little more proximal to FWW and upright posture to allow decrease UE WB on FWW. Suggested stop stand rest if needed for endurance recovery as needed, declined I can make it further. Cues for tall pelvis under trunk during balance with TKE and TA facilitation for increased stability, required Min/Mod A today. Physical Therapy Plan Frequency and Duration Frequency of Treatment 2x/Week Plan of Care Start Date 11/15/23 Plan of Care End Date 02/13/24 Therapeutic Interventions Therapeutic Interventions Balance Training,Coordination Training,Gait Training,Home Exercise Program,Manual Therapy,Neuromuscular Re- education,Patient/Caregiver Education,Self-Care/Home Management,Soft Tissue Mobilization,Therapeutic Activities,Therapeutic Exercises,Wheelchair Management Next Visit Focus/Plan Next Note Type Treatment Note Next Visit Plan Check response to increasd gait /c FWW last tx. POC: LE/UE/core strengthening, gait and stair training, balance challenges, increasing activity tolerance
--- NOTE | 2023-12-25 14:27 | PT.OTN ---
Current Diagnoses Other symptoms and signs involving the musculoskeletal system (12/25/23) Weakness (12/25/23) Other malaise (12/25/23) Physical Therapy Treatment Note PT-OP-A Visit Information Start: 11/15/23 16:26 Freq: Status: Active Protocol: Document 12/25/23 13:45 DCW (Rec: 12/25/23 14:25 DCW [id number]) Out-Patient Physical Therapy Visit Information Visit Information Visit Type Progress Note Visit Start Time 13:45 Visit Stop Time 14:30 Visit Number 10 Number of CUSTOMER SERVICE OFFICER Visits 0 Evaluation Information Evaluation Date 11/15/23 PT-OP-B Current Condition Start: 11/15/23 16:26 Freq: Status: Active Protocol: Document 11/15/23 13:45 DCW (Rec: 11/16/23 10:20 DCW [id number]) Current Condition History of Current Condition Onset Date February 2021 Current Complaints Weakness, decreased activity tolerance, poor balance, physical debility History of Current Condition Pt is a 73 year old male presenting with a multi-year, highly complex medical history . Pt is well known to this clinic, and has been treated at this facility for the same symptoms multiple times over the past three years. Health complications initially began February 2021 with a severe bacterial infection, resulting in a months-long hospitalization requiring time on a ventilator, and then spent time at a rehab facility , not returning home until October 2021. Pt at that time wheelchair bound, severe weakness in lower extremities, particularly his ankles. Pt has experienced other health complications in the past two years, mainly involving cardiac issues, including an [place] and pacemaker placement, which both interrupted his rehabilitation from his illness. Pt was most recently treated at this facility earlier this year, was discharged 06/06/23 due to planned heart surgery. Pt has since had clips placed on his mitral and tricuspid valves/ Overall, pt continues to mobilize mainly in his w/c, however is spending time walking in his home with a FWW , and has been more independent with transfers. Pt previously wwas using full AFOs due to bilateral drop foot, however has switched to a softer ankler brace which clips to his shoe to limit drop foot, which offers less stability but makes standing from his w/c much easier due to allowing more ankle mobility and better LE positioning. Has recently been getting treatment for a UTI, although recently had to stop the antibiotics due to GI issues. Continues to exhibit general deconditioning, bilateral ankle weakness, decreased activity tolerance, poor balance, and increased dependence for IADLs/ADLs. Treatment Goals Patient/Caregiver Goals Pt's goals are to be able to ascend/descend stairs and to start to walk using a cane instead of a FWW. PT-OP-C Subjective Start: 11/15/23 16:26 Freq: Status: Active Protocol: Document 12/25/23 13:45 DCW (Rec: 12/25/23 14:25 DCW [id number]) OP-PT Subjective Patient Comments Patient Comments Pt notes his knees have been hurting a little more. PT-OP-E Functional Tests Start: 11/15/23 16:26 Freq: Status: Active Protocol: Document 11/15/23 13:45 DCW (Rec: 11/15/23 16:33 DCW [id number]) Functional Tests 2 Minute Walk Test Distance 103' Device Used FWW Comments 0.85 ft/sec 30 Second Sit to Stand Test Score x6 repetitions from w/c Comments unable to perform full leg extension Timed Up and Go (TUG) Score 62.02 /c FWW TUG Impairment Rating 100% Impaired (Score 20) PT-OP-G Mobility & Gait Start: 11/15/23 16:26 Freq: Status: Active Protocol: Document 11/15/23 13:45 DCW (Rec: 11/15/23 16:33 DCW [id number]) OP Gait Assessment Comments Gait Comments Pt ambulates with heavy use of UEs on FWW, ankle braces due to foot drop. Poor foot clearance, forward trunk flexion during gait. PT-OP-M Strength Start: 11/15/23 16:26 Freq: Status: Active Protocol: Document 11/15/23 13:45 DCW (Rec: 11/15/23 16:33 DCW [id number]) Hip Strength Hip Manual Muscle Testing Right Flexion (L2) 4 Good Abduction 4+ Good+ Adduction 4+ Good+ External Rotation 4 Good Internal Rotation 4 Good Left Flexion (L2) 4 Good Abduction 4+ Good+ Adduction 4+ Good+ External Rotation 4- Good- Internal Rotation 4 Good Knee Strength Knee Manual Muscle Testing Right Flexion (S2) 4- Good- Extension (L3) 4+ Good+ Left Flexion (S2) 4 Good Extension (L3) 4+ Good+ Ankle/Foot Strength Ankle and Foot Manual Muscle Testing Right Dorsiflexion (L4) 2 Poor Plantarflexion (S1) 2- Poor- Left Dorsiflexion (L4) 2- Poor- Plantarflexion (S1) 1 Trace PT-OP-Q Treatments Start: 11/15/23 16:26 Freq: Status: Active Protocol: Document 12/25/23 13:45 DCW (Rec: 12/25/23 14:25 DCW [id number]) Gym Equipment Shuttle Recovery Unilateral Squats Resistance 50# Bilateral Squats Resistance 100# Shuttle Recovery Platform Stable Reps/Time x50 Therapeutic Exercises Sitting Exercises Horizontal Abduction Sitting Exercise Name UE Horizontal Abd/adduction in 90 deg flexion/abduction Side bilateral Resistance Red ball 3.3# Other Exercises Step-ups Other Exercise Name Step-ups Side bilateral Equipment Used 5 step, // bars Neuro Re-Education Treatment Balance Activities Hurdles Details Hurdles Equipment // bars, 3# Trevon Comments Fwd, side stepping Weight Shift Details Lateral weight-shift - Balloon Volley Equipment // bars PT-OP-T Assessment and Plan Start: 11/15/23 16:26 Freq: Status: Active Protocol: Document 12/25/23 13:45 DCW (Rec: 12/25/23 14:25 DCW [id number]) Physical Therapy Assessment Impairments Impairments Activity Tolerance,Balance, Coordination,Functional Activities,Functional Mobility ,Gait,Posture,ROM,Soft Tissue Mobility,Strength,Tone, Transfers Goals One Impairment Pt does not have an appropriate home exercise program Short Term Goal (STG) Pt to be independent and compliant with an appropriate HEP STG Duration 01/13/24 Three Impairment Pt ambulates 103' over the course of a two minute walk test Impairment . Prison Goal (LTG) Pt to ambulate >600' using a FWW during a 6MWT in order to demonstrate decreasing burden of care and improved ability to perform ADLs independently. LTG Duration 02/13/24 Two Impairment TUG score of 62.02 /c FWW indicates increased risk of falls Impairment . Prison Goal (LTG) Pt to improve TUG score using his FWW by at least 22 seconds to 40 in order to demonstrate improved gait ability and greater activity tolerance 12/25/23: 53:10 LTG Duration 02/13/24 Assessment Summary Assessment Demonstrating improvement in some functional mobility, TUG score improved by more than nine seconds. Continue to focus on LE strength, gait, balance, and increased activity tolerance. Physical Therapy Plan Frequency and Duration Frequency of Treatment 2x/Week Plan of Care Start Date 11/15/23 Plan of Care End Date 02/13/24 Therapeutic Interventions Therapeutic Interventions Balance Training,Coordination Training,Gait Training,Home Exercise Program,Manual Therapy,Neuromuscular Re- education,Patient/Caregiver Education,Self-Care/Home Management,Soft Tissue Mobilization,Therapeutic Activities,Therapeutic Exercises,Wheelchair Management Next Visit Focus/Plan Next Note Type Treatment Note Next Visit Plan Check response to increasd gait /c FWW last tx. POC: LE/UE/core strengthening, gait and stair training, balance challenges, increasing activity tolerance
--- NOTE | 2023-12-28 13:42 | PT.OTN ---
Current Diagnoses Other symptoms and signs involving the musculoskeletal system (12/28/23) Weakness (12/28/23) Other malaise (12/28/23) Physical Therapy Treatment Note PT-OP-A Visit Information Start: 11/15/23 16:26 Freq: Status: Active Protocol: Document 12/28/23 13:00 SP (Rec: 12/28/23 14:00 SP [id number]) Out-Patient Physical Therapy Visit Information Visit Information Visit Type Treatment Note Visit Note 05/13 Visit Start Time 13:00 Visit Stop Time 13:42 Visit Number 11 Number of COMPUTER SECURITY SPECIALIST Visits 1 Evaluation Information Evaluation Date 11/15/23 PT-OP-B Current Condition Start: 11/15/23 16:26 Freq: Status: Active Protocol: Document 11/15/23 13:45 DCW (Rec: 11/16/23 10:20 DCW [id number]) Current Condition History of Current Condition Onset Date February 2021 Current Complaints Weakness, decreased activity tolerance, poor balance, physical debility History of Current Condition Pt is a 73 year old male presenting with a multi-year, highly complex medical history . Pt is well known to this clinic, and has been treated at this facility for the same symptoms multiple times over the past three years. Health complications initially began February 2021 with a severe bacterial infection, resulting in a months-long hospitalization requiring time on a ventilator, and then spent time at a rehab facility , not returning home until October 2021. Pt at that time wheelchair bound, severe weakness in lower extremities, particularly his ankles. Pt has experienced other health complications in the past two years, mainly involving cardiac issues, including an [place] and pacemaker placement, which both interrupted his rehabilitation from his illness. Pt was most recently treated at this facility earlier this year, was discharged 06/06/23 due to planned heart surgery. Pt has since had clips placed on his mitral and tricuspid valves/ Overall, pt continues to mobilize mainly in his w/c, however is spending time walking in his home with a FWW , and has been more independent with transfers. Pt previously wwas using full AFOs due to bilateral drop foot, however has switched to a softer ankler brace which clips to his shoe to limit drop foot, which offers less stability but makes standing from his w/c much easier due to allowing more ankle mobility and better LE positioning. Has recently been getting treatment for a UTI, although recently had to stop the antibiotics due to GI issues. Continues to exhibit general deconditioning, bilateral ankle weakness, decreased activity tolerance, poor balance, and increased dependence for IADLs/ADLs. Treatment Goals Patient/Caregiver Goals Pt's goals are to be able to ascend/descend stairs and to start to walk using a cane instead of a FWW. PT-OP-C Subjective Start: 11/15/23 16:26 Freq: Status: Active Protocol: Document 12/28/23 13:00 SP (Rec: 12/28/23 14:00 SP [id number]) OP-PT Subjective Patient Comments Patient Comments Pt reports wants to focus on ankle strengthening vs balance . My balance isn't as good because my ankles are strong. PT-OP-E Functional Tests Start: 11/15/23 16:26 Freq: Status: Active Protocol: Document 11/15/23 13:45 DCW (Rec: 11/15/23 16:33 DCW [id number]) Functional Tests 2 Minute Walk Test Distance 103' Device Used FWW Comments 0.85 ft/sec 30 Second Sit to Stand Test Score x6 repetitions from w/c Comments unable to perform full leg extension Timed Up and Go (TUG) Score 62.02 /c FWW TUG Impairment Rating 100% Impaired (Score 20) PT-OP-G Mobility & Gait Start: 11/15/23 16:26 Freq: Status: Active Protocol: Document 11/15/23 13:45 DCW (Rec: 11/15/23 16:33 DCW [id number]) OP Gait Assessment Comments Gait Comments Pt ambulates with heavy use of UEs on FWW, ankle braces due to foot drop. Poor foot clearance, forward trunk flexion during gait. PT-OP-M Strength Start: 11/15/23 16:26 Freq: Status: Active Protocol: Document 11/15/23 13:45 DCW (Rec: 11/15/23 16:33 DCW [id number]) Hip Strength Hip Manual Muscle Testing Right Flexion (L2) 4 Good Abduction 4+ Good+ Adduction 4+ Good+ External Rotation 4 Good Internal Rotation 4 Good Left Flexion (L2) 4 Good Abduction 4+ Good+ Adduction 4+ Good+ External Rotation 4- Good- Internal Rotation 4 Good Knee Strength Knee Manual Muscle Testing Right Flexion (S2) 4- Good- Extension (L3) 4+ Good+ Left Flexion (S2) 4 Good Extension (L3) 4+ Good+ Ankle/Foot Strength Ankle and Foot Manual Muscle Testing Right Dorsiflexion (L4) 2 Poor Plantarflexion (S1) 2- Poor- Left Dorsiflexion (L4) 2- Poor- Plantarflexion (S1) 1 Trace PT-OP-Q Treatments Start: 11/15/23 16:26 Freq: Status: Active Protocol: Document 12/28/23 13:00 SP (Rec: 12/28/23 14:00 SP [id number]) Gym Equipment Shuttle Recovery Unilateral Squats Resistance 50# 2 navy Reps/Time x36 L, 47 R Bilateral Squats Resistance 100# 4 navy (increased 112 next tx) Shuttle Recovery Platform Stable Reps/Time x50 Therapeutic Exercises Sitting Exercises LAQ Sitting Exercise Name trialed in PT- pre step ups Side bilateral Resistance 4# leg wt Reps/Minutes 5 SH x10 each LE Comments reports painfree, cued slower pacing eccentric control LE walking in wc Sitting Exercise Name hamstring Side bilateral Resistance AROM (ed limit UE support) Reps/Minutes shuttle recovery to //bars- approx 40 ft Comments cued LE HS curl engagement for strengthening Horizontal Abduction Sitting Exercise Name Trunk rotation: UE Horizontal Abd/adduction in 90 deg flexion/abduction Side bilateral Resistance Red ball 3.3# Reps/Minutes x10 alternate sides Comments further L than R Dorsiflexion Sitting Exercise Name Active ankle DF Side bilateral Resistance AROM- range can do Reps/Minutes 5 Sh [id number] Comments improved slight more range /c rep progression Other Exercises Step-ups Other Exercise Name Step-ups Side bilateral Resistance AROM- (noted R knee crepitus eccentric flexion LLE descending) Equipment Used 5 step, BUEs heavily on // bars Reps/Minutes x10 LLE, attempted 1 reps RLE unable due to lack strength Comments cues wt shift over stance LE on step, TKE, bigger step DF onto/off step LLE Neuro Re-Education Treatment Balance Activities Hurdles Details Hurdles- (fwd only 12/27) Equipment // bars, 3# Trevon (AROM 12/27 dueto pain L knee) Reps/Duration 10 ft 1 lap step to lead LLE only Comments c/o R knee pain during swing phase and mid stance time. PT-OP-T Assessment and Plan Start: 11/15/23 16:26 Freq: Status: Active Protocol: Document 12/28/23 13:00 SP (Rec: 12/28/23 14:00 SP [id number]) Physical Therapy Assessment Goals One Impairment Pt does not have an appropriate home exercise program Short Term Goal (STG) Pt to be independent and compliant with an appropriate HEP STG Duration 01/13/24 Three Impairment Pt ambulates 103' over the course of a two minute walk test Impairment . Longterm Goal (LTG) Pt to ambulate >600' using a FWW during a 6MWT in order to demonstrate decreasing burden of care and improved ability to perform ADLs independently. LTG Duration 02/13/24 Two Impairment TUG score of 62.02 /c FWW indicates increased risk of falls Impairment . Longterm Goal (LTG) Pt to improve TUG score using his FWW by at least 22 seconds to 40 in order to demonstrate improved gait ability and greater activity tolerance 12/25/23: 53:10 LTG Duration 02/13/24 Assessment Summary Assessment Pt Decreased activity tolerance natalio stepping 1 lap AROM with reports of pain in R knee, although able to complete foot clearance with no circumducation compensations. He c/o pain in R knee during eccentric flexion/LLE step back down. Attempted but unable to step up onto step with RLE, BUE supported on // bars, reports pain and no strength today. Physical Therapy Plan Frequency and Duration Frequency of Treatment 2x/Week Plan of Care Start Date 11/15/23 Plan of Care End Date 02/13/24 Therapeutic Interventions Therapeutic Interventions Balance Training,Coordination Training,Gait Training,Home Exercise Program,Manual Therapy,Neuromuscular Re- education,Patient/Caregiver Education,Self-Care/Home Management,Soft Tissue Mobilization,Therapeutic Activities,Therapeutic Exercises,Wheelchair Management Next Visit Focus/Plan Next Note Type Treatment Note Next Visit Plan POC: LE/UE/core strengthening, gait and stair training, balance challenges, increasing activity tolerance
--- NOTE | 2024-01-01 14:28 | PT.OTN ---
Current Diagnoses Other symptoms and signs involving the musculoskeletal system (01/01/24) Weakness (01/01/24) Other malaise (01/01/24) Physical Therapy Treatment Note PT-OP-A Visit Information Start: 11/15/23 16:26 Freq: Status: Active Protocol: Document 01/01/24 13:51 SP (Rec: 01/01/24 14:31 SP [id number]) Out-Patient Physical Therapy Visit Information Visit Information Visit Type Treatment Note Visit Note 06/10 Visit Start Time 13:48 Visit Stop Time 14:28 Visit Number 12 Number of GAMEMASTER Visits 2 Evaluation Information Evaluation Date 11/15/23 PT-OP-B Current Condition Start: 11/15/23 16:26 Freq: Status: Active Protocol: Document 11/15/23 13:45 DCW (Rec: 11/16/23 10:20 DCW [id number]) Current Condition History of Current Condition Onset Date February 2021 Current Complaints Weakness, decreased activity tolerance, poor balance, physical debility History of Current Condition Pt is a 73 year old male presenting with a multi-year, highly complex medical history . Pt is well known to this clinic, and has been treated at this facility for the same symptoms multiple times over the past three years. Health complications initially began February 2021 with a severe bacterial infection, resulting in a months-long hospitalization requiring time on a ventilator, and then spent time at a rehab facility , not returning home until October 2021. Pt at that time wheelchair bound, severe weakness in lower extremities, particularly his ankles. Pt has experienced other health complications in the past two years, mainly involving cardiac issues, including an ME and pacemaker placement, which both interrupted his rehabilitation from his illness. Pt was most recently treated at this facility earlier this year, was discharged 06/06/23 due to planned heart surgery. Pt has since had clips placed on his mitral and tricuspid valves/ Overall, pt continues to mobilize mainly in his w/c, however is spending time walking in his home with a FWW , and has been more independent with transfers. Pt previously wwas using full AFOs due to bilateral drop foot, however has switched to a softer ankler brace which clips to his shoe to limit drop foot, which offers less stability but makes standing from his w/c much easier due to allowing more ankle mobility and better LE positioning. Has recently been getting treatment for a UTI, although recently had to stop the antibiotics due to GI issues. Continues to exhibit general deconditioning, bilateral ankle weakness, decreased activity tolerance, poor balance, and increased dependence for IADLs/ADLs. Treatment Goals Patient/Caregiver Goals Pt's goals are to be able to ascend/descend stairs and to start to walk using a cane instead of a FWW. PT-OP-C Subjective Start: 11/15/23 16:26 Freq: Status: Active Protocol: Document 01/01/24 13:51 SP (Rec: 01/01/24 14:31 SP [id number]) OP-PT Subjective Patient Comments Patient Comments Pt reports wearing his ankle braces little higher and is helping hold his feet up. He is walking with 2 SPCs at home and wants to progress to so not have to use the wc. PT-OP-E Functional Tests Start: 11/15/23 16:26 Freq: Status: Active Protocol: Document 11/15/23 13:45 DCW (Rec: 11/15/23 16:33 DCW [id number]) Functional Tests 2 Minute Walk Test Distance 103' Device Used FWW Comments 0.85 ft/sec 30 Second Sit to Stand Test Score x6 repetitions from w/c Comments unable to perform full leg extension Timed Up and Go (TUG) Score 62.02 /c FWW TUG Impairment Rating 100% Impaired (Score 20) PT-OP-G Mobility & Gait Start: 11/15/23 16:26 Freq: Status: Active Protocol: Document 11/15/23 13:45 DCW (Rec: 11/15/23 16:33 DCW [id number]) OP Gait Assessment Comments Gait Comments Pt ambulates with heavy use of UEs on FWW, ankle braces due to foot drop. Poor foot clearance, forward trunk flexion during gait. PT-OP-M Strength Start: 11/15/23 16:26 Freq: Status: Active Protocol: Document 11/15/23 13:45 DCW (Rec: 11/15/23 16:33 DCW [id number]) Hip Strength Hip Manual Muscle Testing Right Flexion (L2) 4 Good Abduction 4+ Good+ Adduction 4+ Good+ External Rotation 4 Good Internal Rotation 4 Good Left Flexion (L2) 4 Good Abduction 4+ Good+ Adduction 4+ Good+ External Rotation 4- Good- Internal Rotation 4 Good Knee Strength Knee Manual Muscle Testing Right Flexion (S2) 4- Good- Extension (L3) 4+ Good+ Left Flexion (S2) 4 Good Extension (L3) 4+ Good+ Ankle/Foot Strength Ankle and Foot Manual Muscle Testing Right Dorsiflexion (L4) 2 Poor Plantarflexion (S1) 2- Poor- Left Dorsiflexion (L4) 2- Poor- Plantarflexion (S1) 1 Trace PT-OP-Q Treatments Start: 11/15/23 16:26 Freq: Status: Active Protocol: Document 01/01/24 13:51 SP (Rec: 01/01/24 14:31 SP [id number]) Gym Equipment Shuttle Recovery Unilateral Squats Resistance 50#> 62# 2 navy Reps/Time x25 L & R Bilateral Squats Resistance 100# 4 navy (increased 112 next tx) Shuttle Recovery Platform Stable Reps/Time x50 Therapeutic Exercises Standing Exercises SHARON Standing Exercise Name calf stretch, attempted rocking unable Side bilateral Equipment Used outside Shuttle Balance rail Reps/Minutes 20 SH Gait Training Gait Activity Matty QC Description trialed in PT (pt states performing home) Device Used B SBQC Level of Assistance CGA via gait belt, wc follow PT AIde for safety Distance/Duration 50 ft Treatment Focus patterning 2-4 pt gait, stride & eccentric advancement, foot clearance Comments Cued for soft stepping advancement, pt tends to perform 4pt gait. FWW Device Used FWW Level of Assistance sBA Distance/Duration 30 ft Treatment Focus foot clearance & stride, proximal to FWW UE support needed Neuro Re-Education Treatment Balance Activities rocker board Details f/b/lateral Equipment outside shuttle balance rail, rocker board PT-OP-T Assessment and Plan Start: 11/15/23 16:26 Freq: Status: Active Protocol: Document 01/01/24 13:51 SP (Rec: 01/01/24 14:31 SP [id number]) Physical Therapy Assessment Goals One Impairment Pt does not have an appropriate home exercise program Short Term Goal (STG) Pt to be independent and compliant with an appropriate HEP STG Duration 01/13/24 Three Impairment Pt ambulates 103' over the course of a two minute walk test Impairment . Senior Living Goal (LTG) Pt to ambulate >600' using a FWW during a 6MWT in order to demonstrate decreasing burden of care and improved ability to perform ADLs independently. LTG Duration 02/13/24 Two Impairment TUG score of 62.02 /c FWW indicates increased risk of falls Impairment . Agent Producer Goal (LTG) Pt to improve TUG score using his FWW by at least 22 seconds to 40 in order to demonstrate improved gait ability and greater activity tolerance 12/25/23: 53:10 LTG Duration 02/13/24 Assessment Summary Assessment Pt good effort throughout tx, tolerated increased resistance on shuttle recovery. Progressed gait decreased support bilateral SBQC up to 50 ft, further than home distance, CGA w/c follow for safety. Pt strong stretch on SHARON and performed some wt shifting on rockerboard for foot ankel strengthening. Physical Therapy Plan Frequency and Duration Frequency of Treatment 2x/Week Plan of Care Start Date 11/15/23 Plan of Care End Date 02/13/24 Therapeutic Interventions Therapeutic Interventions Balance Training,Coordination Training,Gait Training,Home Exercise Program,Manual Therapy,Neuromuscular Re- education,Patient/Caregiver Education,Self-Care/Home Management,Soft Tissue Mobilization,Therapeutic Activities,Therapeutic Exercises,Wheelchair Management Next Visit Focus/Plan Next Note Type Treatment Note Next Visit Plan POC: LE/UE/core strengthening, gait and stair training, balance challenges, increasing activity tolerance
--- NOTE | 2024-01-04 14:26 | PT.OTN ---
Current Diagnoses Other symptoms and signs involving the musculoskeletal system (01/04/24) Weakness (01/04/24) Other malaise (01/04/24) Physical Therapy Treatment Note PT-OP-A Visit Information Start: 11/15/23 16:26 Freq: Status: Active Protocol: Document 01/04/24 13:45 DCW (Rec: 01/04/24 14:26 DCW [id number]) Out-Patient Physical Therapy Visit Information Visit Information Visit Type Treatment Note Visit Note 07/11 Visit Start Time 13:45 Visit Stop Time 14:15 Visit Number 13 Number of ACID REGENERATOR Visits 0 Evaluation Information Evaluation Date 11/15/23 PT-OP-B Current Condition Start: 11/15/23 16:26 Freq: Status: Active Protocol: Document 11/15/23 13:45 DCW (Rec: 11/16/23 10:20 DCW [id number]) Current Condition History of Current Condition Onset Date February 2021 Current Complaints Weakness, decreased activity tolerance, poor balance, physical debility History of Current Condition Pt is a 73 year old male presenting with a multi-year, highly complex medical history . Pt is well known to this clinic, and has been treated at this facility for the same symptoms multiple times over the past three years. Health complications initially began February 2021 with a severe bacterial infection, resulting in a months-long hospitalization requiring time on a ventilator, and then spent time at a rehab facility , not returning home until October 2021. Pt at that time wheelchair bound, severe weakness in lower extremities, particularly his ankles. Pt has experienced other health complications in the past two years, mainly involving cardiac issues, including an UT and pacemaker placement, which both interrupted his rehabilitation from his illness. Pt was most recently treated at this facility earlier this year, was discharged 06/06/23 due to planned heart surgery. Pt has since had clips placed on his mitral and tricuspid valves/ Overall, pt continues to mobilize mainly in his w/c, however is spending time walking in his home with a FWW , and has been more independent with transfers. Pt previously wwas using full AFOs due to bilateral drop foot, however has switched to a softer ankler brace which clips to his shoe to limit drop foot, which offers less stability but makes standing from his w/c much easier due to allowing more ankle mobility and better LE positioning. Has recently been getting treatment for a UTI, although recently had to stop the antibiotics due to GI issues. Continues to exhibit general deconditioning, bilateral ankle weakness, decreased activity tolerance, poor balance, and increased dependence for IADLs/ADLs. Treatment Goals Patient/Caregiver Goals Pt's goals are to be able to ascend/descend stairs and to start to walk using a cane instead of a FWW. PT-OP-C Subjective Start: 11/15/23 16:26 Freq: Status: Active Protocol: Document 01/04/24 13:45 DCW (Rec: 01/04/24 14:26 DCW [id number]) OP-PT Subjective Patient Comments Patient Comments Pt not feeling well today, notes he was in the ED yesterday due to left lower quadrant pain, all testing was unremarkable. Additionally, woke up this morning to his Pedroza cath leaking, and he has not been able to get someone to fix it. PT-OP-E Functional Tests Start: 11/15/23 16:26 Freq: Status: Active Protocol: Document 11/15/23 13:45 DCW (Rec: 11/15/23 16:33 DCW [id number]) Functional Tests 2 Minute Walk Test Distance 103' Device Used FWW Comments 0.85 ft/sec 30 Second Sit to Stand Test Score x6 repetitions from w/c Comments unable to perform full leg extension Timed Up and Go (TUG) Score 62.02 /c FWW TUG Impairment Rating 100% Impaired (Score 20) PT-OP-G Mobility & Gait Start: 11/15/23 16:26 Freq: Status: Active Protocol: Document 11/15/23 13:45 DCW (Rec: 11/15/23 16:33 DCW [id number]) OP Gait Assessment Comments Gait Comments Pt ambulates with heavy use of UEs on FWW, ankle braces due to foot drop. Poor foot clearance, forward trunk flexion during gait. PT-OP-M Strength Start: 11/15/23 16:26 Freq: Status: Active Protocol: Document 11/15/23 13:45 DCW (Rec: 11/15/23 16:33 DCW [id number]) Hip Strength Hip Manual Muscle Testing Right Flexion (L2) 4 Good Abduction 4+ Good+ Adduction 4+ Good+ External Rotation 4 Good Internal Rotation 4 Good Left Flexion (L2) 4 Good Abduction 4+ Good+ Adduction 4+ Good+ External Rotation 4- Good- Internal Rotation 4 Good Knee Strength Knee Manual Muscle Testing Right Flexion (S2) 4- Good- Extension (L3) 4+ Good+ Left Flexion (S2) 4 Good Extension (L3) 4+ Good+ Ankle/Foot Strength Ankle and Foot Manual Muscle Testing Right Dorsiflexion (L4) 2 Poor Plantarflexion (S1) 2- Poor- Left Dorsiflexion (L4) 2- Poor- Plantarflexion (S1) 1 Trace PT-OP-Q Treatments Start: 11/15/23 16:26 Freq: Status: Active Protocol: Document 01/04/24 13:45 DCW (Rec: 01/04/24 14:26 DCW [id number]) Gym Equipment Shuttle Recovery Unilateral Squats Resistance 50# Shuttle Recovery Platform Stable Bilateral Squats Resistance 75# Shuttle Recovery Platform Stable Neuro Re-Education Treatment Balance Activities Hurdles Details Hurdles - fwd, side-stepping Equipment // bars, 4# Trevon Reps/Duration 10' x2 fwd, stopped shelter through first side-stepping PT-OP-T Assessment and Plan Start: 11/15/23 16:26 Freq: Status: Active Protocol: Document 01/04/24 13:45 DCW (Rec: 01/04/24 14:26 DCW [id number]) Physical Therapy Assessment Goals One Impairment Pt does not have an appropriate home exercise program Short Term Goal (STG) Pt to be independent and compliant with an appropriate HEP STG Duration 01/13/24 Three Impairment Pt ambulates 103' over the course of a two minute walk test Impairment . Tempering Machine Operator Goal (LTG) Pt to ambulate >600' using a FWW during a 6MWT in order to demonstrate decreasing burden of care and improved ability to perform ADLs independently. LTG Duration 02/13/24 Two Impairment TUG score of 62.02 /c FWW indicates increased risk of falls Impairment . 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 Pt low energy levels today, admits he is not eating/ drinking due to Pedroza cath issues. Stopped early due to significant fatigue. Physical Therapy Plan Frequency and Duration Frequency of Treatment 2x/Week Plan of Care Start Date 11/15/23 Plan of Care End Date 02/13/24 Therapeutic Interventions Therapeutic Interventions Balance Training,Coordination Training,Gait Training,Home Exercise Program,Manual Therapy,Neuromuscular Re- education,Patient/Caregiver Education,Self-Care/Home Management,Soft Tissue Mobilization,Therapeutic Activities,Therapeutic Exercises,Wheelchair Management Next Visit Focus/Plan Next Note Type Treatment Note Next Visit Plan POC: LE/UE/core strengthening, gait and stair training, balance challenges, increasing activity tolerance
--- NOTE | 2024-01-08 15:13 | PT.OTN ---
Current Diagnoses Other symptoms and signs involving the musculoskeletal system (01/08/24) Weakness (01/08/24) Other malaise (01/08/24) Physical Therapy Treatment Note PT-OP-A Visit Information Start: 11/15/23 16:26 Freq: Status: Active Protocol: Document 01/08/24 14:30 DCW (Rec: 01/08/24 15:12 DCW [id number]) Out-Patient Physical Therapy Visit Information Visit Information Visit Type Treatment Note Visit Note 08/10 Visit Start Time 14:30 Visit Stop Time 15:15 Visit Number 14 Number of ELECTRICIAN SECOND Visits 0 Evaluation Information Evaluation Date 11/15/23 PT-OP-B Current Condition Start: 11/15/23 16:26 Freq: Status: Active Protocol: Document 11/15/23 13:45 DCW (Rec: 11/16/23 10:20 DCW [id number]) Current Condition History of Current Condition Onset Date February 2021 Current Complaints Weakness, decreased activity tolerance, poor balance, physical debility History of Current Condition Pt is a 73 year old male presenting with a multi-year, highly complex medical history . Pt is well known to this clinic, and has been treated at this facility for the same symptoms multiple times over the past three years. Health complications initially began February 2021 with a severe bacterial infection, resulting in a months-long hospitalization requiring time on a ventilator, and then spent time at a rehab facility , not returning home until October 2021. Pt at that time wheelchair bound, severe weakness in lower extremities, particularly his ankles. Pt has experienced other health complications in the past two years, mainly involving cardiac issues, including an NM and pacemaker placement, which both interrupted his rehabilitation from his illness. Pt was most recently treated at this facility earlier this year, was discharged 06/06/23 due to planned heart surgery. Pt has since had clips placed on his mitral and tricuspid valves/ Overall, pt continues to mobilize mainly in his w/c, however is spending time walking in his home with a FWW , and has been more independent with transfers. Pt previously wwas using full AFOs due to bilateral drop foot, however has switched to a softer ankler brace which clips to his shoe to limit drop foot, which offers less stability but makes standing from his w/c much easier due to allowing more ankle mobility and better LE positioning. Has recently been getting treatment for a UTI, although recently had to stop the antibiotics due to GI issues. Continues to exhibit general deconditioning, bilateral ankle weakness, decreased activity tolerance, poor balance, and increased dependence for IADLs/ADLs. Treatment Goals Patient/Caregiver Goals Pt's goals are to be able to ascend/descend stairs and to start to walk using a cane instead of a FWW. PT-OP-C Subjective Start: 11/15/23 16:26 Freq: Status: Active Protocol: Document 01/08/24 14:30 DCW (Rec: 01/08/24 15:12 DCW [id number]) OP-PT Subjective Patient Comments Patient Comments Pt feeling much better today, was able to get a new Pedroza cath placed last week. PT-OP-E Functional Tests Start: 11/15/23 16:26 Freq: Status: Active Protocol: Document 11/15/23 13:45 DCW (Rec: 11/15/23 16:33 DCW [id number]) Functional Tests 2 Minute Walk Test Distance 103' Device Used FWW Comments 0.85 ft/sec 30 Second Sit to Stand Test Score x6 repetitions from w/c Comments unable to perform full leg extension Timed Up and Go (TUG) Score 62.02 /c FWW TUG Impairment Rating 100% Impaired (Score 20) PT-OP-G Mobility & Gait Start: 11/15/23 16:26 Freq: Status: Active Protocol: Document 11/15/23 13:45 DCW (Rec: 11/15/23 16:33 DCW [id number]) OP Gait Assessment Comments Gait Comments Pt ambulates with heavy use of UEs on FWW, ankle braces due to foot drop. Poor foot clearance, forward trunk flexion during gait. PT-OP-M Strength Start: 11/15/23 16:26 Freq: Status: Active Protocol: Document 11/15/23 13:45 DCW (Rec: 11/15/23 16:33 DCW [id number]) Hip Strength Hip Manual Muscle Testing Right Flexion (L2) 4 Good Abduction 4+ Good+ Adduction 4+ Good+ External Rotation 4 Good Internal Rotation 4 Good Left Flexion (L2) 4 Good Abduction 4+ Good+ Adduction 4+ Good+ External Rotation 4- Good- Internal Rotation 4 Good Knee Strength Knee Manual Muscle Testing Right Flexion (S2) 4- Good- Extension (L3) 4+ Good+ Left Flexion (S2) 4 Good Extension (L3) 4+ Good+ Ankle/Foot Strength Ankle and Foot Manual Muscle Testing Right Dorsiflexion (L4) 2 Poor Plantarflexion (S1) 2- Poor- Left Dorsiflexion (L4) 2- Poor- Plantarflexion (S1) 1 Trace PT-OP-Q Treatments Start: 11/15/23 16:26 Freq: Status: Active Protocol: Document 01/08/24 14:30 DCW (Rec: 01/08/24 15:12 DCW [id number]) Gym Equipment Shuttle Recovery Unilateral Squats Resistance 62# 2 navy Reps/Time 4x10 Bilateral Squats Resistance 100# 4 navy Shuttle Recovery Platform Stable Reps/Time x50 Therapeutic Exercises Standing Exercises Hip Extension Standing Exercise Name Hip Extension Side bilateral Resistance Green loop Other Exercises Resisted Ambulation Other Exercise Name Resisted side-stepping Resistance Green loop Gait Training Gait Activity Steps Description 4 stairs Device Used B Rails Level of Assistance CGA Distance/Duration 5 steps x1, 4 steps x4 Comments Ascend: Fwd step-to Descend: Retro step-to FWW Device Used FWW Level of Assistance SBA Distance/Duration 30 ft Treatment Focus foot clearance & stride, proximal to FWW UE support needed PT-OP-T Assessment and Plan Start: 11/15/23 16:26 Freq: Status: Active Protocol: Document 01/08/24 14:30 DCW (Rec: 01/08/24 15:12 [facility] [id number]) Physical Therapy Assessment Assessment Summary Assessment Pt did well with addition of stairs today, using 4 steps. Pt still fatigues quickly with activity, does well with brief rest breaks. Physical Therapy Plan Frequency and Duration Frequency of Treatment 2x/Week Plan of Care Start Date 11/15/23 Plan of Care End Date 02/13/24 Therapeutic Interventions Therapeutic Interventions Balance Training,Coordination Training,Gait Training,Home Exercise Program,Manual Therapy,Neuromuscular Re- education,Patient/Caregiver Education,Self-Care/Home Management,Soft Tissue Mobilization,Therapeutic Activities,Therapeutic Exercises,Wheelchair Management Next Visit Focus/Plan Next Note Type Treatment Note Next Visit Plan POC: LE/UE/core strengthening, gait and stair training, balance challenges, increasing activity tolerance
--- NOTE | 2024-01-11 14:33 | PT.OTN ---
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 Pt is well known to this clinic, and has been treated at this facility for the same symptoms multiple times over the past three years. Health complications initially began February 2021 with a severe bacterial infection, resulting in a months-long hospitalization requiring time on a ventilator, and then spent time at a rehab facility , not returning home until October 2021. Pt at that time wheelchair bound, severe weakness in lower extremities, particularly his ankles. Pt has experienced other health complications in the past two years, mainly involving cardiac issues, including an [place] and pacemaker placement, which both interrupted his rehabilitation from his illness. Pt was most recently treated at this facility earlier this year, was discharged 06/06/23 due to planned heart surgery. Pt has since had clips placed on his mitral and tricuspid valves/ Overall, pt continues to mobilize mainly in his w/c, however is spending time walking in his home with a FWW , and has been more independent with transfers. Pt previously wwas using full AFOs due to bilateral drop foot, however has switched to a softer ankler brace which clips to his shoe to limit drop foot, which offers less stability but makes standing from his w/c much easier due to allowing more ankle mobility and better LE positioning. Has recently been getting treatment for a UTI, although recently had to stop the antibiotics due to GI issues. Continues to exhibit general deconditioning, bilateral ankle weakness, decreased activity tolerance, poor balance, and increased dependence for IADLs/ADLs. Treatment Goals Patient/Caregiver Goals Pt's goals are to be able to ascend/descend stairs and to start to walk using a cane instead of a FWW. PT-OP-C Subjective Start: 11/15/23 16:26 Freq: Status: Active Protocol: Document 01/11/24 13:45 SP (Rec: 01/11/24 14:27 SP [id number]) OP-PT Subjective Patient Comments Patient Comments Pt reports was at ER 2x this past week (01/02) for pain in stomach and swelling but DC with no answers. Next day went to Dr office (01/03) to change catheter due to leaking, was sent to ER physicians unavailable. He was able to receive larger catheter. He stated doing HEP LAQ with 3# leg wt 25 reps. PT-OP-E Functional Tests Start: 11/15/23 16:26 Freq: Status: Active Protocol: Document 11/15/23 13:45 DCW (Rec: 11/15/23 16:33 DCW [id number]) Functional Tests 2 Minute Walk Test Distance 103' Device Used FWW Comments 0.85 ft/sec 30 Second Sit to Stand Test Score x6 repetitions from w/c Comments unable to perform full leg extension Timed Up and Go (TUG) Score 62.02 /c FWW TUG Impairment Rating 100% Impaired (Score 20) PT-OP-G Mobility & Gait Start: 11/15/23 16:26 Freq: Status: Active Protocol: Document 11/15/23 13:45 DCW (Rec: 11/15/23 16:33 DCW [id number]) OP Gait Assessment Comments Gait Comments Pt ambulates with heavy use of UEs on FWW, ankle braces due to foot drop. Poor foot clearance, forward trunk flexion during gait. PT-OP-M Strength Start: 11/15/23 16:26 Freq: Status: Active Protocol: Document 11/15/23 13:45 DCW (Rec: 11/15/23 16:33 DCW [id number]) Hip Strength Hip Manual Muscle Testing Right Flexion (L2) 4 Good Abduction 4+ Good+ Adduction 4+ Good+ External Rotation 4 Good Internal Rotation 4 Good Left Flexion (L2) 4 Good Abduction 4+ Good+ Adduction 4+ Good+ External Rotation 4- Good- Internal Rotation 4 Good Knee Strength Knee Manual Muscle Testing Right Flexion (S2) 4- Good- Extension (L3) 4+ Good+ Left Flexion (S2) 4 Good Extension (L3) 4+ Good+ Ankle/Foot Strength Ankle and Foot Manual Muscle Testing Right Dorsiflexion (L4) 2 Poor Plantarflexion (S1) 2- Poor- Left Dorsiflexion (L4) 2- Poor- Plantarflexion (S1) 1 Trace PT-OP-Q Treatments Start: 11/15/23 16:26 Freq: Status: Active Protocol: Document 01/11/24 13:45 SP (Rec: 01/11/24 14:27 SP [id number]) Gym Equipment Shuttle Recovery Unilateral Squats Resistance 62# 2 navy Reps/Time 4x12 Bilateral Squats Resistance 100# 4 navy Shuttle Recovery Platform Stable Reps/Time x50 Therapeutic Exercises Sitting Exercises hip abuction Sitting Exercise Name trialed in PT Side bilateral Resistance GTB Equipment Used long leg axis Reps/Minutes 2x10 between distance walking Standing Exercises Hip Extension Standing Exercise Name Hip Extension Side bilateral Resistance Green loop at shins Equipment Used //bars Reps/Minutes 2x10 Other Exercises Resisted Ambulation Other Exercise Name Resisted side-stepping Resistance Green loop at shins Equipment Used BUE on //bars Reps/Minutes 10 ft x1 lap Comments cued larger step foot clearance each direction/step Gait Training Gait Activity Steps Description 4 stairs Device Used B Rails Level of Assistance CGA Distance/Duration 5 steps x4 laps Comments Ascend: Fwd step-to Descend: Retro step-to REports little L knee irritation Cued upright posture, downward pressure FWW Device Used FWW Level of Assistance SBA Distance/Duration 78 ft Treatment Focus foot clearance & stride, proximal to FWW UE support needed Comments cued more proximal to FWW, increased foot clearance end of distance due to tiring. Neuro Re-Education Treatment Balance Activities Weight Shift Details Seated 01/10: Lateral trunk weight-shift - Balloon Volley Equipment dowel /c 5# wt Reps/Duration 2 min Comments cued sit up away from chair back, improved core facilitation trunk wts shift quick balloon volley PT-OP-T Assessment and Plan Start: 11/15/23 16:26 Freq: Status: Active Protocol: Document 01/11/24 13:45 SP (Rec: 01/11/24 14:27 SP [id number]) Physical Therapy Assessment Goals One Impairment Pt does not have an appropriate home exercise program Short Term Goal (STG) Pt to be independent and compliant with an appropriate HEP STG Duration 01/13/24 Three Impairment Pt ambulates 103' over the course of a two minute walk test Impairment . Security Inspector Goal (LTG) Pt to ambulate >600' using a FWW during a 6MWT in order to demonstrate decreasing burden of care and improved ability to perform ADLs independently. LTG Duration 02/13/24 Two Impairment TUG score of 62.02 /c FWW indicates increased risk of falls Impairment . Security Inspector Goal (LTG) Pt to improve TUG score using his FWW by at least 22 seconds to 40 in order to demonstrate improved gait ability and greater activity tolerance 12/25/23: 53:10 LTG Duration 02/13/24 Assessment Summary Assessment Pt demonstrated good effort during tx today, improved standing endurance during activities . He was able to lift BLEs with slight 5%A L onto shuttle recovery today himself. Cues for TKE during resisted hip extension and larger steps for foot clearance resisted side stepping, heavily UE support on rail. He was able to complete 4 sets stair mgt today asc forward, descend retro with occasional cues for upright posture and foot fully on step as back stepping down feel toe contact front step, end last 2 steps reported L knee crepitus pain. Improved seated trunk core wts shift weighted dowel balloon volley. Pt tolerated increased distance gait 78 ft /c FWW end tx after all other activity. Physical Therapy Plan Frequency and Duration Frequency of Treatment 2x/Week Plan of Care Start Date 11/15/23 Plan of Care End Date 02/13/24 Therapeutic Interventions Therapeutic Interventions Balance Training,Coordination Training,Gait Training,Home Exercise Program,Manual Therapy,Neuromuscular Re- education,Patient/Caregiver Education,Self-Care/Home Management,Soft Tissue Mobilization,Therapeutic Activities,Therapeutic Exercises,Wheelchair Management Next Visit Focus/Plan Next Note Type Treatment Note Next Visit Plan Continue resisted LE activities, trial addition hurdles next tx. POC: LE/UE/core strengthening, gait and stair training, balance challenges, increasing activity tolerance
--- NOTE | 2024-01-22 14:30 | PT.OTN ---
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 Pt is well known to this clinic, and has been treated at this facility for the same symptoms multiple times over the past three years. Health complications initially began February 2021 with a severe bacterial infection, resulting in a months-long hospitalization requiring time on a ventilator, and then spent time at a rehab facility , not returning home until October 2021. Pt at that time wheelchair bound, severe weakness in lower extremities, particularly his ankles. Pt has experienced other health complications in the past two years, mainly involving cardiac issues, including an AK and pacemaker placement, which both interrupted his rehabilitation from his illness. Pt was most recently treated at this facility earlier this year, was discharged 06/06/23 due to planned heart surgery. Pt has since had clips placed on his mitral and tricuspid valves/ Overall, pt continues to mobilize mainly in his w/c, however is spending time walking in his home with a FWW , and has been more independent with transfers. Pt previously wwas using full AFOs due to bilateral drop foot, however has switched to a softer ankler brace which clips to his shoe to limit drop foot, which offers less stability but makes standing from his w/c much easier due to allowing more ankle mobility and better LE positioning. Has recently been getting treatment for a UTI, although recently had to stop the antibiotics due to GI issues. Continues to exhibit general deconditioning, bilateral ankle weakness, decreased activity tolerance, poor balance, and increased dependence for IADLs/ADLs. Treatment Goals Patient/Caregiver Goals Pt's goals are to be able to ascend/descend stairs and to start to walk using a cane instead of a FWW. PT-OP-C Subjective Start: 11/15/23 16:26 Freq: Status: Active Protocol: Document 01/22/24 13:45 DCW (Rec: 01/22/24 14:30 DCW [id number]) OP-PT Subjective Patient Comments Patient Comments Pt notes he was having skin breakdown due to incomplete drying prior to pulling on his briefs last week. Feeling better now, has made some changes to length of time wearing briefs at home. PT-OP-E Functional Tests Start: 11/15/23 16:26 Freq: Status: Active Protocol: Document 11/15/23 13:45 DCW (Rec: 11/15/23 16:33 DCW [id number]) Functional Tests 2 Minute Walk Test Distance 103' Device Used FWW Comments 0.85 ft/sec 30 Second Sit to Stand Test Score x6 repetitions from w/c Comments unable to perform full leg extension Timed Up and Go (TUG) Score 62.02 /c FWW TUG Impairment Rating 100% Impaired (Score 20) PT-OP-G Mobility & Gait Start: 11/15/23 16:26 Freq: Status: Active Protocol: Document 11/15/23 13:45 DCW (Rec: 11/15/23 16:33 DCW [id number]) OP Gait Assessment Comments Gait Comments Pt ambulates with heavy use of UEs on FWW, ankle braces due to foot drop. Poor foot clearance, forward trunk flexion during gait. PT-OP-M Strength Start: 11/15/23 16:26 Freq: Status: Active Protocol: Document 11/15/23 13:45 DCW (Rec: 11/15/23 16:33 DCW [id number]) Hip Strength Hip Manual Muscle Testing Right Flexion (L2) 4 Good Abduction 4+ Good+ Adduction 4+ Good+ External Rotation 4 Good Internal Rotation 4 Good Left Flexion (L2) 4 Good Abduction 4+ Good+ Adduction 4+ Good+ External Rotation 4- Good- Internal Rotation 4 Good Knee Strength Knee Manual Muscle Testing Right Flexion (S2) 4- Good- Extension (L3) 4+ Good+ Left Flexion (S2) 4 Good Extension (L3) 4+ Good+ Ankle/Foot Strength Ankle and Foot Manual Muscle Testing Right Dorsiflexion (L4) 2 Poor Plantarflexion (S1) 2- Poor- Left Dorsiflexion (L4) 2- Poor- Plantarflexion (S1) 1 Trace PT-OP-Q Treatments Start: 11/15/23 16:26 Freq: Status: Active Protocol: Document 01/22/24 13:45 DCW (Rec: 01/22/24 14:30 DCW [id number]) Gym Equipment Shuttle Recovery Unilateral Squats Resistance 62# 2 navy Reps/Time 3x10 Bilateral Squats Resistance 100# 4 navy Shuttle Recovery Platform Stable Reps/Time x50 Therapeutic Exercises Standing Exercises SHARON Standing Exercise Name Calf stretch Side bilateral Equipment Used SHARON Other Exercises Resisted Ambulation Other Exercise Name Resisted side-stepping Resistance Green loop Gait Training Gait Activity Steps Description 4 stairs Device Used B Rails Level of Assistance CGA Distance/Duration 5 steps x1, 4 steps x5 Comments Ascend: Fwd step-to Descend: Retro step-to // bars Description Fwd/Retro ambulation Device Used // bars Level of Assistance CBA Comments UEs as little as possible PT-OP-T Assessment and Plan Start: 11/15/23 16:26 Freq: Status: Active Protocol: Document 01/22/24 13:45 DCW (Rec: 01/22/24 14:30 DCW [id number]) Physical Therapy Assessment Assessment Summary Assessment Pt continues to make slow improvement in activity tolerance, increased repetitions of ascend/descend stairs. Continue to focus on LE strength, gait, balance, stairs, and activity tolerance . Physical Therapy Plan Frequency and Duration Frequency of Treatment 2x/Week Plan of Care Start Date 11/15/23 Plan of Care End Date 02/13/24 Therapeutic Interventions Therapeutic Interventions Balance Training,Coordination Training,Gait Training,Home Exercise Program,Manual Therapy,Neuromuscular Re- education,Patient/Caregiver Education,Self-Care/Home Management,Soft Tissue Mobilization,Therapeutic Activities,Therapeutic Exercises,Wheelchair Management Next Visit Focus/Plan Next Note Type Treatment Note Next Visit Plan Continue resisted LE activities, trial addition hurdles next tx. POC: LE/UE/core strengthening, gait and stair training, balance challenges, increasing activity tolerance
--- NOTE | 2024-01-24 13:42 | PT.OTN ---
Current Diagnoses Other symptoms and signs involving the musculoskeletal system (01/24/24) Weakness (01/24/24) Other malaise (01/24/24) Physical Therapy Treatment Note PT-OP-A Visit Information Start: 11/15/23 16:26 Freq: Status: Active Protocol: Document 01/24/24 12:57 SP (Rec: 01/24/24 13:49 SP [id number]) Out-Patient Physical Therapy Visit Information Visit Information Visit Type Treatment Note Visit Note 11/10 Visit Start Time 13:00 Visit Stop Time 13:42 Visit Number 17 (11/10 since PN) Number of SOLAR PHOTOVOLTAIC ELECTRICIAN Visits 1 Evaluation Information Evaluation Date 11/15/23 PT-OP-B Current Condition Start: 11/15/23 16:26 Freq: Status: Active Protocol: Document 11/15/23 13:45 DCW (Rec: 11/16/23 10:20 DCW [id number]) Current Condition History of Current Condition Onset Date February 2021 Current Complaints Weakness, decreased activity tolerance, poor balance, physical debility History of Current Condition Pt is a 73 year old male presenting with a multi-year, highly complex medical history . Pt is well known to this clinic, and has been treated at this facility for the same symptoms multiple times over the past three years. Health complications initially began February 2021 with a severe bacterial infection, resulting in a months-long hospitalization requiring time on a ventilator, and then spent time at a rehab facility , not returning home until October 2021. Pt at that time wheelchair bound, severe weakness in lower extremities, particularly his ankles. Pt has experienced other health complications in the past two years, mainly involving cardiac issues, including an [place] and pacemaker placement, which both interrupted his rehabilitation from his illness. Pt was most recently treated at this facility earlier this year, was discharged 06/06/23 due to planned heart surgery. Pt has since had clips placed on his mitral and tricuspid valves/ Overall, pt continues to mobilize mainly in his w/c, however is spending time walking in his home with a FWW , and has been more independent with transfers. Pt previously wwas using full AFOs due to bilateral drop foot, however has switched to a softer ankler brace which clips to his shoe to limit drop foot, which offers less stability but makes standing from his w/c much easier due to allowing more ankle mobility and better LE positioning. Has recently been getting treatment for a UTI, although recently had to stop the antibiotics due to GI issues. Continues to exhibit general deconditioning, bilateral ankle weakness, decreased activity tolerance, poor balance, and increased dependence for IADLs/ADLs. Treatment Goals Patient/Caregiver Goals Pt's goals are to be able to ascend/descend stairs and to start to walk using a cane instead of a FWW. PT-OP-C Subjective Start: 11/15/23 16:26 Freq: Status: Active Protocol: Document 01/24/24 12:57 SP (Rec: 01/24/24 13:49 SP [id number]) OP-PT Subjective Patient Comments Patient Comments Pt reports catheter removed yesterday. Pt repors woke up last night with loss of bladder unaware. PT-OP-E Functional Tests Start: 11/15/23 16:26 Freq: Status: Active Protocol: Document 11/15/23 13:45 DCW (Rec: 11/15/23 16:33 DCW [id number]) Functional Tests 2 Minute Walk Test Distance 103' Device Used FWW Comments 0.85 ft/sec 30 Second Sit to Stand Test Score x6 repetitions from w/c Comments unable to perform full leg extension Timed Up and Go (TUG) Score 62.02 /c FWW TUG Impairment Rating 100% Impaired (Score 20) PT-OP-G Mobility & Gait Start: 11/15/23 16:26 Freq: Status: Active Protocol: Document 11/15/23 13:45 DCW (Rec: 11/15/23 16:33 DCW [id number]) OP Gait Assessment Comments Gait Comments Pt ambulates with heavy use of UEs on FWW, ankle braces due to foot drop. Poor foot clearance, forward trunk flexion during gait. PT-OP-M Strength Start: 11/15/23 16:26 Freq: Status: Active Protocol: Document 11/15/23 13:45 DCW (Rec: 11/15/23 16:33 DCW [id number]) Hip Strength Hip Manual Muscle Testing Right Flexion (L2) 4 Good Abduction 4+ Good+ Adduction 4+ Good+ External Rotation 4 Good Internal Rotation 4 Good Left Flexion (L2) 4 Good Abduction 4+ Good+ Adduction 4+ Good+ External Rotation 4- Good- Internal Rotation 4 Good Knee Strength Knee Manual Muscle Testing Right Flexion (S2) 4- Good- Extension (L3) 4+ Good+ Left Flexion (S2) 4 Good Extension (L3) 4+ Good+ Ankle/Foot Strength Ankle and Foot Manual Muscle Testing Right Dorsiflexion (L4) 2 Poor Plantarflexion (S1) 2- Poor- Left Dorsiflexion (L4) 2- Poor- Plantarflexion (S1) 1 Trace PT-OP-Q Treatments Start: 11/15/23 16:26 Freq: Status: Active Protocol: Document 01/24/24 12:57 SP (Rec: 01/24/24 13:49 SP [id number]) Gym Equipment Shuttle Recovery Unilateral Squats Resistance 62# 2 navy Reps/Time 4x10 Bilateral Squats Resistance 100# 4 navy Shuttle Recovery Platform Stable Reps/Time x50 Therapeutic Exercises Standing Exercises mini squat Standing Exercise Name FWW support Reps/Minutes 5reps Gait Training Gait Activity Steps Description 4 stairs Device Used B Rails Level of Assistance CGA Distance/Duration 5 steps up and back Comments Ascend: Fwd step-to Descend: Retro step-to Limited time end tx. Matty QC Device Used B SBQC Level of Assistance CGA via gait belt, wc follow PT AIde for safety Distance/Duration 25 ft Treatment Focus patterning 2-4 pt gait, stride & eccentric advancement, foot clearance Comments Cued for soft stepping advancement, pt tends to perform 4pt gait. FWW Device Used FWW Level of Assistance SBA Distance/Duration 96 ft from waitiing room- w/c follow Treatment Focus foot clearance & stride, proximal to FWW UE support needed Comments cued more proximal to FWW, increased foot clearance end of distance due to tiring. Neuro Re-Education Treatment Balance Activities SLS cone taps Details standing heavy BUE on FWW Comments hip/knee flexion cone taps, Weight Shift Details Seated 01/23: Lateral trunk weight-shift - Balloon Volley Equipment 5# dowel + 4# wt Reps/Duration 2 min Comments seated EO table- improved core facilitation trunk wts shift quick balloon volley Self-Care/Home Management Treatment Education Patient Education Safety Other Education SOLAR PHOTOVOLTAIC ELECTRICIAN discussed safety use absorbant undergarment with newly catheter removal. Awareness of pelvic floor engagment during WB activity, as needed. PT-OP-T Assessment and Plan Start: 11/15/23 16:26 Freq: Status: Active Protocol: Document 01/24/24 12:57 SP (Rec: 01/24/24 13:49 SP [id number]) Physical Therapy Assessment Goals One Impairment Pt does not have an appropriate home exercise program Short Term Goal (STG) Pt to be independent and compliant with an appropriate HEP STG Duration 01/13/24 Three Impairment Pt ambulates 103' over the course of a two minute walk test Impairment . Lining Stamper Goal (LTG) Pt to ambulate >600' using a FWW during a 6MWT in order to demonstrate decreasing burden of care and improved ability to perform ADLs independently. LTG Duration 02/13/24 Two Impairment TUG score of 62.02 /c FWW indicates increased risk of falls Impairment . Lining Stamper Goal (LTG) Pt to improve TUG score using his FWW by at least 22 seconds to 40 in order to demonstrate improved gait ability and greater activity tolerance 12/25/23: 53:10 LTG Duration 02/13/24 Assessment Summary Assessment Pt increased standing activities today, requires seated rest for recovery tiring. Pt increased distance gait LRAD. Pt ontinue to focus on LE strength, gait, balance , stairs, and activity tolerance. SOLAR PHOTOVOLTAIC ELECTRICIAN mindful druing tx of rest break per pt request due to newly catheter removal and unsure of pelvic floor strength. Physical Therapy Plan Frequency and Duration Frequency of Treatment 2x/Week Plan of Care Start Date 11/15/23 Plan of Care End Date 02/13/24 Therapeutic Interventions Therapeutic Interventions Balance Training,Coordination Training,Gait Training,Home Exercise Program,Manual Therapy,Neuromuscular Re- education,Patient/Caregiver Education,Self-Care/Home Management,Soft Tissue Mobilization,Therapeutic Activities,Therapeutic Exercises,Wheelchair Management Next Visit Focus/Plan Next Note Type Treatment Note Next Visit Plan Continue resisted LE activities, increase standing activity endurance trial addition hurdles next tx. POC: LE/UE/core strengthening, gait and stair training, balance challenges, increasing activity tolerance
--- NOTE | 2024-01-31 14:30 | PT.OTN ---
Current Diagnoses Other symptoms and signs involving the musculoskeletal system (01/31/24) Weakness (01/31/24) Other malaise (01/31/24) Physical Therapy Treatment Note PT-OP-A Visit Information Start: 11/15/23 16:26 Freq: Status: Active Protocol: Document 01/31/24 13:50 SP (Rec: 01/31/24 14:28 SP [id number]) Out-Patient Physical Therapy Visit Information Visit Information Visit Type Treatment Note Visit Start Time 13:50 Visit Stop Time 14:30 Visit Number 18 (12/11 since PN) Number of GROUNDMAN Visits 2 PT-OP-B Current Condition Start: 11/15/23 16:26 Freq: Status: Active Protocol: Document 11/15/23 13:45 DCW (Rec: 11/16/23 10:20 DCW [id number]) Current Condition History of Current Condition Onset Date February 2021 Current Complaints Weakness, decreased activity tolerance, poor balance, physical debility History of Current Condition Pt is a 73 year old male presenting with a multi-year, highly complex medical history . Pt is well known to this clinic, and has been treated at this facility for the same symptoms multiple times over the past three years. Health complications initially began February 2021 with a severe bacterial infection, resulting in a months-long hospitalization requiring time on a ventilator, and then spent time at a rehab facility , not returning home until October 2021. Pt at that time wheelchair bound, severe weakness in lower extremities, particularly his ankles. Pt has experienced other health complications in the past two years, mainly involving cardiac issues, including an [place] and pacemaker placement, which both interrupted his rehabilitation from his illness. Pt was most recently treated at this facility earlier this year, was discharged 06/06/23 due to planned heart surgery. Pt has since had clips placed on his mitral and tricuspid valves/ Overall, pt continues to mobilize mainly in his w/c, however is spending time walking in his home with a FWW , and has been more independent with transfers. Pt previously wwas using full AFOs due to bilateral drop foot, however has switched to a softer ankler brace which clips to his shoe to limit drop foot, which offers less stability but makes standing from his w/c much easier due to allowing more ankle mobility and better LE positioning. Has recently been getting treatment for a UTI, although recently had to stop the antibiotics due to GI issues. Continues to exhibit general deconditioning, bilateral ankle weakness, decreased activity tolerance, poor balance, and increased dependence for IADLs/ADLs. Treatment Goals Patient/Caregiver Goals Pt's goals are to be able to ascend/descend stairs and to start to walk using a cane instead of a FWW. PT-OP-C Subjective Start: 11/15/23 16:26 Freq: Status: Active Protocol: Document 01/31/24 13:50 SP (Rec: 01/31/24 14:28 SP [id number]) OP-PT Subjective Patient Comments Patient Comments Pt reports was sore after last tx. He stated is walking alot faster with FWW now and able to get BLEs in his 's car without added support, R foot did catch the doorframe a little but able to lift little higher itself. PT-OP-E Functional Tests Start: 11/15/23 16:26 Freq: Status: Active Protocol: Document 11/15/23 13:45 DCW (Rec: 11/15/23 16:33 DCW [id number]) Functional Tests 2 Minute Walk Test Distance 103' Device Used FWW Comments 0.85 ft/sec 30 Second Sit to Stand Test Score x6 repetitions from w/c Comments unable to perform full leg extension Timed Up and Go (TUG) Score 62.02 /c FWW TUG Impairment Rating 100% Impaired (Score 20) PT-OP-G Mobility & Gait Start: 11/15/23 16:26 Freq: Status: Active Protocol: Document 11/15/23 13:45 DCW (Rec: 11/15/23 16:33 DCW [id number]) OP Gait Assessment Comments Gait Comments Pt ambulates with heavy use of UEs on FWW, ankle braces due to foot drop. Poor foot clearance, forward trunk flexion during gait. PT-OP-M Strength Start: 11/15/23 16:26 Freq: Status: Active Protocol: Document 11/15/23 13:45 DCW (Rec: 11/15/23 16:33 DCW [id number]) Hip Strength Hip Manual Muscle Testing Right Flexion (L2) 4 Good Abduction 4+ Good+ Adduction 4+ Good+ External Rotation 4 Good Internal Rotation 4 Good Left Flexion (L2) 4 Good Abduction 4+ Good+ Adduction 4+ Good+ External Rotation 4- Good- Internal Rotation 4 Good Knee Strength Knee Manual Muscle Testing Right Flexion (S2) 4- Good- Extension (L3) 4+ Good+ Left Flexion (S2) 4 Good Extension (L3) 4+ Good+ Ankle/Foot Strength Ankle and Foot Manual Muscle Testing Right Dorsiflexion (L4) 2 Poor Plantarflexion (S1) 2- Poor- Left Dorsiflexion (L4) 2- Poor- Plantarflexion (S1) 1 Trace PT-OP-Q Treatments Start: 11/15/23 16:26 Freq: Status: Active Protocol: Document 01/31/24 13:50 SP (Rec: 01/31/24 14:28 SP [id number]) Therapeutic Exercises Sitting Exercises FF Over head Side bilateral Resistance 2# wt on dowel Reps/Minutes 3x10 Comments cued breath, decrease UT Gait Training Gait Activity Steps Description 4 stairs Device Used B Rails Level of Assistance CGA Distance/Duration 5 steps up and back Comments Ascend: Fwd step-to Descend: Retro step-to limted with L knee pain today, only 2 laps cues for upright posture /c downward pressure through BUEs Matty QC Device Used B SBQC Level of Assistance CGA via gait belt, wc follow PT AIde for safety Distance/Duration 87 ft Treatment Focus patterning 4 pt gait, stride & eccentric advancement, foot clearance Comments Cued for soft stepping advancement, pt tends to perform 4pt gait. Neuro Re-Education Treatment Balance Activities Weight Shift Details Seated 01/23: Lateral trunk weight-shift - Balloon Volley Equipment 3#= dowel + 2# wt Reps/Duration 2 min Comments seated EO wc- improved core facilitation trunk wts shift quick balloon volley Foam Details WBOS Surface AirEx. Floor Equipment //bars, BUe WB cues lessen> contact to 10%A Comments CG- min A- cues tall posture, head & shld back PT-OP-T Assessment and Plan Start: 11/15/23 16:26 Freq: Status: Active Protocol: Document 01/31/24 13:50 SP (Rec: 01/31/24 14:28 SP [id number]) Physical Therapy Assessment Goals One Impairment Pt does not have an appropriate home exercise program Short Term Goal (STG) Pt to be independent and compliant with an appropriate HEP STG Duration 01/13/24 Three Impairment Pt ambulates 103' over the course of a two minute walk test Impairment . Foot Specialist Goal (LTG) Pt to ambulate >600' using a FWW during a 6MWT in order to demonstrate decreasing burden of care and improved ability to perform ADLs independently. LTG Duration 02/13/24 Two Impairment TUG score of 62.02 /c FWW indicates increased risk of falls Impairment . Halfway Goal (LTG) Pt to improve TUG score using his FWW by at least 22 seconds to 40 in order to demonstrate improved gait ability and greater activity tolerance 12/25/23: 53:10 LTG Duration 02/13/24 Assessment Summary Assessment Shuttle Recovery unavailable today, tx focused on increased standing tolerance gait increased 87 ft using LRAD Matty SBQC, w/c trailing. Improved wt shift seated trunk strengthening. Physical Therapy Plan Frequency and Duration Frequency of Treatment 2x/Week Plan of Care Start Date 11/15/23 Plan of Care End Date 02/13/24 Therapeutic Interventions Therapeutic Interventions Balance Training,Coordination Training,Gait Training,Home Exercise Program,Manual Therapy,Neuromuscular Re- education,Patient/Caregiver Education,Self-Care/Home Management,Soft Tissue Mobilization,Therapeutic Activities,Therapeutic Exercises,Wheelchair Management Next Visit Focus/Plan Next Note Type Treatment Note Next Visit Plan Continue resisted LE activities, increase standing activity endurance, next tx: addition hurdles. POC: LE/UE/core strengthening, gait and stair training, balance challenges, increasing activity tolerance
--- NOTE | 2024-02-02 14:30 | PT.OTN ---
Current Diagnoses Other symptoms and signs involving the musculoskeletal system (02/02/24) Weakness (02/02/24) Other malaise (02/02/24) Physical Therapy Treatment Note PT-OP-A Visit Information Start: 11/15/23 16:26 Freq: Status: Active Protocol: Document 02/02/24 13:46 SP (Rec: 02/02/24 14:29 SP [id number]) Out-Patient Physical Therapy Visit Information Visit Information Visit Type Treatment Note Visit Start Time 13:46 Visit Stop Time 14:30 Visit Number 19 (01/10 with last PN) Number of LIFE INSURANCE ACTUARY Visits 3 Evaluation Information Evaluation Date 11/15/23 PT-OP-B Current Condition Start: 11/15/23 16:26 Freq: Status: Active Protocol: Document 11/15/23 13:45 DCW (Rec: 11/16/23 10:20 DCW [id number]) Current Condition History of Current Condition Onset Date February 2021 Current Complaints Weakness, decreased activity tolerance, poor balance, physical debility History of Current Condition Pt is a 73 year old male presenting with a multi-year, highly complex medical history . Pt is well known to this clinic, and has been treated at this facility for the same symptoms multiple times over the past three years. Health complications initially began February 2021 with a severe bacterial infection, resulting in a months-long hospitalization requiring time on a ventilator, and then spent time at a rehab facility , not returning home until October 2021. Pt at that time wheelchair bound, severe weakness in lower extremities, particularly his ankles. Pt has experienced other health complications in the past two years, mainly involving cardiac issues, including an [place] and pacemaker placement, which both interrupted his rehabilitation from his illness. Pt was most recently treated at this facility earlier this year, was discharged 06/06/23 due to planned heart surgery. Pt has since had clips placed on his mitral and tricuspid valves/ Overall, pt continues to mobilize mainly in his w/c, however is spending time walking in his home with a FWW , and has been more independent with transfers. Pt previously wwas using full AFOs due to bilateral drop foot, however has switched to a softer ankler brace which clips to his shoe to limit drop foot, which offers less stability but makes standing from his w/c much easier due to allowing more ankle mobility and better LE positioning. Has recently been getting treatment for a UTI, although recently had to stop the antibiotics due to GI issues. Continues to exhibit general deconditioning, bilateral ankle weakness, decreased activity tolerance, poor balance, and increased dependence for IADLs/ADLs. Treatment Goals Patient/Caregiver Goals Pt's goals are to be able to ascend/descend stairs and to start to walk using a cane instead of a FWW. PT-OP-C Subjective Start: 11/15/23 16:26 Freq: Status: Active Protocol: Document 02/02/24 13:46 SP (Rec: 02/02/24 14:29 SP [id number]) OP-PT Subjective Patient Comments Patient Comments Pt reports little tired and sore, not to bad. He stated also has someone come over in am to do exercise before coming to PT. PT-OP-E Functional Tests Start: 11/15/23 16:26 Freq: Status: Active Protocol: Document 11/15/23 13:45 DCW (Rec: 11/15/23 16:33 DCW [id number]) Functional Tests 2 Minute Walk Test Distance 103' Device Used FWW Comments 0.85 ft/sec 30 Second Sit to Stand Test Score x6 repetitions from w/c Comments unable to perform full leg extension Timed Up and Go (TUG) Score 62.02 /c FWW TUG Impairment Rating 100% Impaired (Score 20) PT-OP-G Mobility & Gait Start: 11/15/23 16:26 Freq: Status: Active Protocol: Document 11/15/23 13:45 DCW (Rec: 11/15/23 16:33 DCW [id number]) OP Gait Assessment Comments Gait Comments Pt ambulates with heavy use of UEs on FWW, ankle braces due to foot drop. Poor foot clearance, forward trunk flexion during gait. PT-OP-M Strength Start: 11/15/23 16:26 Freq: Status: Active Protocol: Document 11/15/23 13:45 DCW (Rec: 11/15/23 16:33 DCW [id number]) Hip Strength Hip Manual Muscle Testing Right Flexion (L2) 4 Good Abduction 4+ Good+ Adduction 4+ Good+ External Rotation 4 Good Internal Rotation 4 Good Left Flexion (L2) 4 Good Abduction 4+ Good+ Adduction 4+ Good+ External Rotation 4- Good- Internal Rotation 4 Good Knee Strength Knee Manual Muscle Testing Right Flexion (S2) 4- Good- Extension (L3) 4+ Good+ Left Flexion (S2) 4 Good Extension (L3) 4+ Good+ Ankle/Foot Strength Ankle and Foot Manual Muscle Testing Right Dorsiflexion (L4) 2 Poor Plantarflexion (S1) 2- Poor- Left Dorsiflexion (L4) 2- Poor- Plantarflexion (S1) 1 Trace PT-OP-Q Treatments Start: 11/15/23 16:26 Freq: Status: Active Protocol: Document 02/02/24 13:46 SP (Rec: 02/02/24 14:29 SP [id number]) Gym Equipment Shuttle Recovery Unilateral Squats Resistance 62#> 50 # 2 navy Reps/Time x15 L not as many due to pain, R leg ok Bilateral Squats Resistance 100# 4 navy Shuttle Recovery Platform Stable Reps/Time x50 Therapeutic Exercises Sitting Exercises body blade Resistance BUE horizontal front, each UE at side w/c Reps/Minutes press fwd 10 each Comments cue sit front w/c scap complex and core for stability walking support shoulder ext Sitting Exercise Name front and rear facing Side bilateral Resistance Tb #4 dark blue Reps/Minutes 2x10 Comments cued sit front w/c, keep feet down Gait Training Gait Activity 6MWT Device Used FWW Level of Assistance SBA + w/c follow but not needed Distance/Duration 351 ft Neuro Re-Education Treatment Balance Activities TUG Reps/Duration 60 sec, 48sec x2 PT-OP-T Assessment and Plan Start: 11/15/23 16:26 Freq: Status: Active Protocol: Document 02/02/24 13:46 SP (Rec: 02/02/24 14:29 SP [id number]) Physical Therapy Assessment Goals One Impairment Pt does not have an appropriate home exercise program Short Term Goal (STG) Pt to be independent and compliant with an appropriate HEP STG Duration 01/13/24 Three Impairment Pt ambulates 103' over the course of a two minute walk test Impairment . Piercing Machine Operator Goal (LTG) Pt to ambulate >600' using a FWW during a 6MWT in order to demonstrate decreasing burden of care and improved ability to perform ADLs independently. 02/02/24: 351 ft in 6 min /c FWW, w/c follow but not need sit. LTG Duration 02/13/24 progressing 02/02/24 Two Impairment TUG score of 62.02 /c FWW indicates increased risk of falls Impairment . Piercing Machine Operator Goal (LTG) Pt to improve TUG score using his FWW by at least 22 seconds to 40 in order to demonstrate improved gait ability and greater activity tolerance 12/25/23: 53:10 02/02/24: 60sec, 48 sec x2 LTG Duration 02/13/24 progressing (post 6MWT & leg press) 02.02.24 Assessment Summary Assessment Pt improved distance progression gait /c FWW 351 ft from 1 min 3 sec during 6 min , cues for proximity and upright posture as distance progressed tires, noted improving corrections for support foot clearance and reduction UE WB on FWW, w/c follow but not needed. Improved TUG 6 min 2 sec to 48 sec this date to show strength progress, even being last activity of session. Physical Therapy Plan Frequency and Duration Frequency of Treatment 2x/Week Plan of Care Start Date 11/15/23 Plan of Care End Date 02/13/24 Therapeutic Interventions Therapeutic Interventions Balance Training,Coordination Training,Gait Training,Home Exercise Program,Manual Therapy,Neuromuscular Re- education,Patient/Caregiver Education,Self-Care/Home Management,Soft Tissue Mobilization,Therapeutic Activities,Therapeutic Exercises,Wheelchair Management Next Visit Focus/Plan Next Note Type Treatment Note Next Visit Plan Continue resisted LE activities, increase standing activity endurance, next tx: addition hurdles. POC: LE/UE/core strengthening, gait and stair training, balance challenges, increasing activity tolerance
--- NOTE | 2024-02-06 14:31 | PT.OTN ---
Current Diagnoses Other symptoms and signs involving the musculoskeletal system (02/06/24) Weakness (02/06/24) Other malaise (02/06/24) Physical Therapy Treatment Note PT-OP-A Visit Information Start: 11/15/23 16:26 Freq: Status: Active Protocol: Document 02/06/24 13:47 SP (Rec: 02/06/24 14:31 SP [id number]) Out-Patient Physical Therapy Visit Information Visit Information Visit Type Treatment Note Visit Start Time 13:47 Visit Stop Time 14:31 Visit Number 20 (02/10 with last PN) Number of PAUNCH TRIMMER Visits 4 Evaluation Information Evaluation Date 11/15/23 PT-OP-B Current Condition Start: 11/15/23 16:26 Freq: Status: Active Protocol: Document 11/15/23 13:45 DCW (Rec: 11/16/23 10:20 DCW [id number]) Current Condition History of Current Condition Onset Date February 2021 Current Complaints Weakness, decreased activity tolerance, poor balance, physical debility History of Current Condition Pt is a 73 year old male presenting with a multi-year, highly complex medical history . Pt is well known to this clinic, and has been treated at this facility for the same symptoms multiple times over the past three years. Health complications initially began February 2021 with a severe bacterial infection, resulting in a months-long hospitalization requiring time on a ventilator, and then spent time at a rehab facility , not returning home until October 2021. Pt at that time wheelchair bound, severe weakness in lower extremities, particularly his ankles. Pt has experienced other health complications in the past two years, mainly involving cardiac issues, including an PR and pacemaker placement, which both interrupted his rehabilitation from his illness. Pt was most recently treated at this facility earlier this year, was discharged 06/06/23 due to planned heart surgery. Pt has since had clips placed on his mitral and tricuspid valves/ Overall, pt continues to mobilize mainly in his w/c, however is spending time walking in his home with a FWW , and has been more independent with transfers. Pt previously wwas using full AFOs due to bilateral drop foot, however has switched to a softer ankler brace which clips to his shoe to limit drop foot, which offers less stability but makes standing from his w/c much easier due to allowing more ankle mobility and better LE positioning. Has recently been getting treatment for a UTI, although recently had to stop the antibiotics due to GI issues. Continues to exhibit general deconditioning, bilateral ankle weakness, decreased activity tolerance, poor balance, and increased dependence for IADLs/ADLs. Treatment Goals Patient/Caregiver Goals Pt's goals are to be able to ascend/descend stairs and to start to walk using a cane instead of a FWW. PT-OP-C Subjective Start: 11/15/23 16:26 Freq: Status: Active Protocol: Document 02/06/24 13:47 SP (Rec: 02/06/24 14:31 SP [id number]) OP-PT Subjective Patient Comments Patient Comments Pt reports felt pretty good after last appt. Reports performing HEP: walking, LAQ 4 #. He stated is taking a new heart medication since last tx to support BP >90 systolic and >50 diastolic. PT-OP-E Functional Tests Start: 11/15/23 16:26 Freq: Status: Active Protocol: Document 11/15/23 13:45 DCW (Rec: 11/15/23 16:33 DCW [id number]) Functional Tests 2 Minute Walk Test Distance 103' Device Used FWW Comments 0.85 ft/sec 30 Second Sit to Stand Test Score x6 repetitions from w/c Comments unable to perform full leg extension Timed Up and Go (TUG) Score 62.02 /c FWW TUG Impairment Rating 100% Impaired (Score 20) PT-OP-G Mobility & Gait Start: 11/15/23 16:26 Freq: Status: Active Protocol: Document 11/15/23 13:45 DCW (Rec: 11/15/23 16:33 DCW [id number]) OP Gait Assessment Comments Gait Comments Pt ambulates with heavy use of UEs on FWW, ankle braces due to foot drop. Poor foot clearance, forward trunk flexion during gait. PT-OP-M Strength Start: 11/15/23 16:26 Freq: Status: Active Protocol: Document 11/15/23 13:45 DCW (Rec: 11/15/23 16:33 DCW [id number]) Hip Strength Hip Manual Muscle Testing Right Flexion (L2) 4 Good Abduction 4+ Good+ Adduction 4+ Good+ External Rotation 4 Good Internal Rotation 4 Good Left Flexion (L2) 4 Good Abduction 4+ Good+ Adduction 4+ Good+ External Rotation 4- Good- Internal Rotation 4 Good Knee Strength Knee Manual Muscle Testing Right Flexion (S2) 4- Good- Extension (L3) 4+ Good+ Left Flexion (S2) 4 Good Extension (L3) 4+ Good+ Ankle/Foot Strength Ankle and Foot Manual Muscle Testing Right Dorsiflexion (L4) 2 Poor Plantarflexion (S1) 2- Poor- Left Dorsiflexion (L4) 2- Poor- Plantarflexion (S1) 1 Trace PT-OP-Q Treatments Start: 11/15/23 16:26 Freq: Status: Active Protocol: Document 02/06/24 13:47 SP (Rec: 02/06/24 14:31 SP [id number]) Gym Equipment Shuttle Recovery Unilateral Squats Resistance 50 # 2 navy Reps/Time 10, 20reps L; 20x2 R Bilateral Squats Resistance 100# 4 navy Shuttle Recovery Platform Stable Reps/Time x50 Therapeutic Exercises Sitting Exercises LAQ Side bilateral Resistance 4# leg wt Reps/Minutes 5 SH x10 each LE Comments reports painfree, cued slower pacing eccentric control Gait Training Gait Activity Matty QC Description after shuttle recovery Device Used B SBQC Level of Assistance CGA via gait belt, wc follow by PAUNCH TRIMMER Distance/Duration 38 ft Treatment Focus patterning 4 pt gait, stride & eccentric advancement, foot clearance Comments Cued for soft stepping advancement, pt tends to perform 4pt gait. Neuro Re-Education Treatment Balance Activities retro walking Equipment //bars Reps/Duration 10 ft x3 lengths alternate with semi tandem walking Comments cues lessen UE support if able Hurdles Details Hurdles - fwd, side-stepping Equipment // bars heavy BUEs , 4# Trevon Reps/Duration 10 ft 1 length Comments step to alternating BLEs Foam Details WBOS Surface large cushion Equipment //bars, BUe WB cues lessen> contact to 10%A Comments WBOS: 7 sec, 3 sec x2, 4 sec no UE support CG- min A- cues tall posture, head & shld back Tandem Details semitandem walking Equipment //bars Reps/Duration 10 ft x3 lengths alternate with semi retro walking Comments cues toes heel as close as can get them near each other PT-OP-T Assessment and Plan Start: 11/15/23 16:26 Freq: Status: Active Protocol: Document 02/06/24 13:47 SP (Rec: 02/06/24 14:31 SP [id number]) Physical Therapy Assessment Goals One Impairment Pt does not have an appropriate home exercise program Short Term Goal (STG) Pt to be independent and compliant with an appropriate HEP STG Duration 01/13/24 Three Impairment Pt ambulates 103' over the course of a two minute walk test Impairment . Halver Machine Operator Goal (LTG) Pt to ambulate >600' using a FWW during a 6MWT in order to demonstrate decreasing burden of care and improved ability to perform ADLs independently. 02/02/24: 351 ft in 6 min /c FWW, w/c follow but not need sit. LTG Duration 02/13/24 progressing 02/02/24 Two Impairment TUG score of 62.02 /c FWW indicates increased risk of falls Impairment . Halver Machine Operator Goal (LTG) Pt to improve TUG score using his FWW by at least 22 seconds to 40 in order to demonstrate improved gait ability and greater activity tolerance 12/25/23: 53:10 02/02/24: 60sec, 48 sec x2 LTG Duration 02/13/24 progressing (post 6MWT & leg press) .04.26 Assessment Summary Assessment Pt good effort with increased endurance in number of standing activities, does requires seated rest bettween activities for tiring recovery . Cues for decreased amount of UE WB if able to. Was able to complete uneven stance 3-7 sec without UE support today, cues for tall posture, rhomboid and abdominal engagement for postural support. Physical Therapy Plan Frequency and Duration Frequency of Treatment 2x/Week Plan of Care Start Date 11/15/23 Plan of Care End Date 02/13/24 Therapeutic Interventions Therapeutic Interventions Balance Training,Coordination Training,Gait Training,Home Exercise Program,Manual Therapy,Neuromuscular Re- education,Patient/Caregiver Education,Self-Care/Home Management,Soft Tissue Mobilization,Therapeutic Activities,Therapeutic Exercises,Wheelchair Management Next Visit Focus/Plan Next Note Type Treatment Note Next Visit Plan Continue resisted LE activities, increase standing activity endurance, including hurdles POC: LE/UE/core strengthening, gait and stair training, balance challenges, increasing activity tolerance
--- NOTE | 2024-02-13 15:16 | PT.OTN ---
Current Diagnoses Other symptoms and signs involving the musculoskeletal system (02/13/24) Weakness (02/13/24) Other malaise (02/13/24) Physical Therapy Treatment Note PT-OP-A Visit Information Start: 11/15/23 16:26 Freq: Status: Active Protocol: Document 02/13/24 14:30 DCW (Rec: 02/13/24 15:16 DCW [id number]) Out-Patient Physical Therapy Visit Information Visit Information Visit Type Progress Note Visit Start Time 14:30 Visit Stop Time 15:15 Visit Number 21 Number of GEOINT ANALYST Visits 0 Evaluation Information Evaluation Date 11/15/23 PT-OP-B Current Condition Start: 11/15/23 16:26 Freq: Status: Active Protocol: Document 11/15/23 13:45 DCW (Rec: 11/16/23 10:20 DCW [id number]) Current Condition History of Current Condition Onset Date February 2021 Current Complaints Weakness, decreased activity tolerance, poor balance, physical debility History of Current Condition Pt is a 73 year old male presenting with a multi-year, highly complex medical history . Pt is well known to this clinic, and has been treated at this facility for the same symptoms multiple times over the past three years. Health complications initially began February 2021 with a severe bacterial infection, resulting in a months-long hospitalization requiring time on a ventilator, and then spent time at a rehab facility , not returning home until October 2021. Pt at that time wheelchair bound, severe weakness in lower extremities, particularly his ankles. Pt has experienced other health complications in the past two years, mainly involving cardiac issues, including an RI and pacemaker placement, which both interrupted his rehabilitation from his illness. Pt was most recently treated at this facility earlier this year, was discharged 06/06/23 due to planned heart surgery. Pt has since had clips placed on his mitral and tricuspid valves/ Overall, pt continues to mobilize mainly in his w/c, however is spending time walking in his home with a FWW , and has been more independent with transfers. Pt previously wwas using full AFOs due to bilateral drop foot, however has switched to a softer ankler brace which clips to his shoe to limit drop foot, which offers less stability but makes standing from his w/c much easier due to allowing more ankle mobility and better LE positioning. Has recently been getting treatment for a UTI, although recently had to stop the antibiotics due to GI issues. Continues to exhibit general deconditioning, bilateral ankle weakness, decreased activity tolerance, poor balance, and increased dependence for IADLs/ADLs. Treatment Goals Patient/Caregiver Goals Pt's goals are to be able to ascend/descend stairs and to start to walk using a cane instead of a FWW. PT-OP-C Subjective Start: 11/15/23 16:26 Freq: Status: Active Protocol: Document 02/13/24 14:30 DCW (Rec: 02/13/24 15:16 DCW [id number]) OP-PT Subjective Patient Comments Patient Comments Pt admits he is having some fairly significant digestive/ GI issues today, is feeling pretty run down. PT-OP-E Functional Tests Start: 11/15/23 16:26 Freq: Status: Active Protocol: Document 02/13/24 14:30 DCW (Rec: 02/13/24 14:48 DCW [id number]) Functional Tests 2 Minute Walk Test Distance 125' Device Used FWW Comments 1.04 ft/sec 30 Second Sit to Stand Test Score x11 repetitions from w/c Comments unable to perform full leg extension Timed Up and Go (TUG) Score 47.35 /c FWW TUG Impairment Rating 100% Impaired (Score 20) PT-OP-G Mobility & Gait Start: 11/15/23 16:26 Freq: Status: Active Protocol: Document 02/13/24 14:30 DCW (Rec: 02/13/24 14:48 DCW [id number]) OP Gait Assessment Comments Gait Comments Pt ambulates with heavy use of UEs on FWW, ankle braces due to foot drop. Poor foot clearance, forward trunk flexion during gait. PT-OP-M Strength Start: 11/15/23 16:26 Freq: Status: Active Protocol: Document 11/15/23 13:45 DCW (Rec: 11/15/23 16:33 DCW [id number]) Hip Strength Hip Manual Muscle Testing Right Flexion (L2) 4 Good Abduction 4+ Good+ Adduction 4+ Good+ External Rotation 4 Good Internal Rotation 4 Good Left Flexion (L2) 4 Good Abduction 4+ Good+ Adduction 4+ Good+ External Rotation 4- Good- Internal Rotation 4 Good Knee Strength Knee Manual Muscle Testing Right Flexion (S2) 4- Good- Extension (L3) 4+ Good+ Left Flexion (S2) 4 Good Extension (L3) 4+ Good+ Ankle/Foot Strength Ankle and Foot Manual Muscle Testing Right Dorsiflexion (L4) 2 Poor Plantarflexion (S1) 2- Poor- Left Dorsiflexion (L4) 2- Poor- Plantarflexion (S1) 1 Trace PT-OP-Q Treatments Start: 11/15/23 16:26 Freq: Status: Active Protocol: Document 02/13/24 14:30 DCW (Rec: 02/13/24 15:16 DCW [id number]) Therapeutic Exercises Sitting Exercises FF Over head Side bilateral Resistance 2# wt on dowel Reps/Minutes 3x10 Horizontal Abduction Sitting Exercise Name Trunk rotation: UE Horizontal Abd/adduction in 90 deg flexion/abduction Side bilateral Resistance Red ball 3.3# Ball Lift Sitting Exercise Name Ball from opposite hip to overhead Side bilateral Resistance Red - 3.3# ball Other Exercises Resisted Ambulation Other Exercise Name Resisted side-stepping Resistance Green loop Neuro Re-Education Treatment Other Activities Testing Comments 2MWT, 30sStS, TUG PT-OP-T Assessment and Plan Start: 11/15/23 16:26 Freq: Status: Active Protocol: Document 02/13/24 14:30 DCW (Rec: 02/13/24 15:16 DCW [id number]) Physical Therapy Assessment Impairments Impairments Activity Tolerance,Balance, Coordination,Functional Activities,Functional Mobility ,Gait,Posture,ROM,Soft Tissue Mobility,Strength,Tone, Transfers Goals One Impairment Pt does not have an appropriate home exercise program Short Term Goal (STG) Pt to be independent and compliant with an appropriate HEP STG Duration 03/14/24 Three Impairment Pt ambulates 103' over the course of a two minute walk test Impairment . Interior Design Project Manager Goal (LTG) Pt to ambulate >600' using a FWW during a 6MWT in order to demonstrate decreasing burden of care and improved ability to perform ADLs independently. LTG Duration 05/13/24 - Improving Two Impairment TUG score of 62.02 /c FWW indicates increased risk of falls Impairment . Interior Design Project Manager Goal (LTG) Pt to improve TUG score using his FWW by at least 22 seconds to 40 in order to demonstrate improved gait ability and greater activity tolerance LTG Duration 05/13/24 - Improving Assessment Summary Assessment Pt showing reasonable overall progress, however still significantly imited with functional mobility. TUG score improved by 15 seconds since initial evaluation, Pt nearly doubled repetitions during 30sStS (x6 to x11), and 2MWT improved by 22'. Pt continues to exhibit fairly severe activity tolerance, as well as poor gait with heavy reliance on UEs and LE weakness. Continue to focus on improving gait, balance, strength, and functional mobility. Physical Therapy Plan Frequency and Duration Frequency of Treatment 2x/Week Plan of Care Start Date 02/13/24 Plan of Care End Date 05/13/24 Therapeutic Interventions Therapeutic Interventions Balance Training,Coordination Training,Gait Training,Home Exercise Program,Manual Therapy,Neuromuscular Re- education,Patient/Caregiver Education,Self-Care/Home Management,Soft Tissue Mobilization,Therapeutic Activities,Therapeutic Exercises,Wheelchair Management Next Visit Focus/Plan Next Note Type Treatment Note Next Visit Plan Continue resisted LE activities, increase standing activity endurance, including hurdles POC: LE/UE/core strengthening, gait and stair training, balance challenges, increasing activity tolerance
--- NOTE | 2024-02-15 15:19 | PT.OTN ---
Current Diagnoses Other symptoms and signs involving the musculoskeletal system (02/15/24) Weakness (02/15/24) Other malaise (02/15/24) Physical Therapy Treatment Note PT-OP-A Visit Information Start: 11/15/23 16:26 Freq: Status: Active Protocol: Document 02/15/24 14:30 DCW (Rec: 02/15/24 15:19 DCW [id number]) Out-Patient Physical Therapy Visit Information Visit Information Visit Type Treatment Note Visit Start Time 14:30 Visit Stop Time 15:15 Visit Number 22 Number of METAL POLISHER AND BUFFER APPRENTICE Visits 0 Evaluation Information Evaluation Date 11/15/23 PT-OP-B Current Condition Start: 11/15/23 16:26 Freq: Status: Active Protocol: Document 11/15/23 13:45 DCW (Rec: 11/16/23 10:20 DCW [id number]) Current Condition History of Current Condition Onset Date February 2021 Current Complaints Weakness, decreased activity tolerance, poor balance, physical debility History of Current Condition Pt is a 73 year old male presenting with a multi-year, highly complex medical history . Pt is well known to this clinic, and has been treated at this facility for the same symptoms multiple times over the past three years. Health complications initially began February 2021 with a severe bacterial infection, resulting in a months-long hospitalization requiring time on a ventilator, and then spent time at a rehab facility , not returning home until October 2021. Pt at that time wheelchair bound, severe weakness in lower extremities, particularly his ankles. Pt has experienced other health complications in the past two years, mainly involving cardiac issues, including an VT and pacemaker placement, which both interrupted his rehabilitation from his illness. Pt was most recently treated at this facility earlier this year, was discharged 06/06/23 due to planned heart surgery. Pt has since had clips placed on his mitral and tricuspid valves/ Overall, pt continues to mobilize mainly in his w/c, however is spending time walking in his home with a FWW , and has been more independent with transfers. Pt previously wwas using full AFOs due to bilateral drop foot, however has switched to a softer ankler brace which clips to his shoe to limit drop foot, which offers less stability but makes standing from his w/c much easier due to allowing more ankle mobility and better LE positioning. Has recently been getting treatment for a UTI, although recently had to stop the antibiotics due to GI issues. Continues to exhibit general deconditioning, bilateral ankle weakness, decreased activity tolerance, poor balance, and increased dependence for IADLs/ADLs. Treatment Goals Patient/Caregiver Goals Pt's goals are to be able to ascend/descend stairs and to start to walk using a cane instead of a FWW. PT-OP-C Subjective Start: 11/15/23 16:26 Freq: Status: Active Protocol: Document 02/15/24 14:30 DCW (Rec: 02/15/24 15:19 DCW [id number]) OP-PT Subjective Patient Comments Patient Comments Pt admits his arms were sore following his appointment earlier this week. PT-OP-E Functional Tests Start: 11/15/23 16:26 Freq: Status: Active Protocol: Document 02/13/24 14:30 DCW (Rec: 02/13/24 14:48 DCW [id number]) Functional Tests 2 Minute Walk Test Distance 125' Device Used FWW Comments 1.04 ft/sec 30 Second Sit to Stand Test Score x11 repetitions from w/c Comments unable to perform full leg extension Timed Up and Go (TUG) Score 47.35 /c FWW TUG Impairment Rating 100% Impaired (Score 20) PT-OP-G Mobility & Gait Start: 11/15/23 16:26 Freq: Status: Active Protocol: Document 02/13/24 14:30 DCW (Rec: 02/13/24 14:48 DCW [id number]) OP Gait Assessment Comments Gait Comments Pt ambulates with heavy use of UEs on FWW, ankle braces due to foot drop. Poor foot clearance, forward trunk flexion during gait. PT-OP-M Strength Start: 11/15/23 16:26 Freq: Status: Active Protocol: Document 11/15/23 13:45 DCW (Rec: 11/15/23 16:33 DCW [id number]) Hip Strength Hip Manual Muscle Testing Right Flexion (L2) 4 Good Abduction 4+ Good+ Adduction 4+ Good+ External Rotation 4 Good Internal Rotation 4 Good Left Flexion (L2) 4 Good Abduction 4+ Good+ Adduction 4+ Good+ External Rotation 4- Good- Internal Rotation 4 Good Knee Strength Knee Manual Muscle Testing Right Flexion (S2) 4- Good- Extension (L3) 4+ Good+ Left Flexion (S2) 4 Good Extension (L3) 4+ Good+ Ankle/Foot Strength Ankle and Foot Manual Muscle Testing Right Dorsiflexion (L4) 2 Poor Plantarflexion (S1) 2- Poor- Left Dorsiflexion (L4) 2- Poor- Plantarflexion (S1) 1 Trace PT-OP-Q Treatments Start: 11/15/23 16:26 Freq: Status: Active Protocol: Document 02/15/24 14:30 DCW (Rec: 02/15/24 15:19 DCW [id number]) Gym Equipment Shuttle Recovery Unilateral Squats Resistance 50# Reps/Time x50 each Bilateral Squats Resistance 112# Shuttle Recovery Platform Stable Reps/Time x50 Therapeutic Exercises Sitting Exercises FF Over head Side bilateral Resistance 4# wt on dowel Reps/Minutes 3x10 Horizontal Abduction Sitting Exercise Name Trunk rotation: UE Horizontal Abd/adduction in 90 deg flexion/abduction Side bilateral Resistance Red ball 3.3# Ball Lift Sitting Exercise Name Ball from opposite hip to overhead Side bilateral Resistance Red - 3.3# ball Other Exercises Resisted Ambulation Other Exercise Name Resisted side-stepping Resistance Green loop Gait Training Gait Activity Steps Description 4 stairs Device Used B Rails Level of Assistance CGA Distance/Duration 5 steps x1, 4 steps x6 Comments Ascend: Fwd step-to Descend: Retro step-to PT-OP-T Assessment and Plan Start: 11/15/23 16:26 Freq: Status: Active Protocol: Document 02/15/24 14:30 DCW (Rec: 02/15/24 15:19 DCW [id number]) Physical Therapy Assessment Impairments Impairments Activity Tolerance,Balance, Coordination,Functional Activities,Functional Mobility ,Gait,Posture,ROM,Soft Tissue Mobility,Strength,Tone, Transfers Goals One Impairment Pt does not have an appropriate home exercise program Short Term Goal (STG) Pt to be independent and compliant with an appropriate HEP STG Duration 03/14/24 Three Impairment Pt ambulates 103' over the course of a two minute walk test Impairment . Long-Term Goal (LTG) Pt to ambulate >600' using a FWW during a 6MWT in order to demonstrate decreasing burden of care and improved ability to perform ADLs independently. LTG Duration 05/13/24 - Improving Two Impairment TUG score of 62.02 /c FWW indicates increased risk of falls Impairment . Long-Term Goal (LTG) Pt to improve TUG score using his FWW by at least 22 seconds to 40 in order to demonstrate improved gait ability and greater activity tolerance LTG Duration 05/13/24 - Improving Assessment Summary Assessment Pt improving with reps on leg press, also did well with stairs today. Will attempt to use 6 step next week, if pt is doing well. Physical Therapy Plan Frequency and Duration Frequency of Treatment 2x/Week Plan of Care Start Date 02/13/24 Plan of Care End Date 05/13/24 Therapeutic Interventions Therapeutic Interventions Balance Training,Coordination Training,Gait Training,Home Exercise Program,Manual Therapy,Neuromuscular Re- education,Patient/Caregiver Education,Self-Care/Home Management,Soft Tissue Mobilization,Therapeutic Activities,Therapeutic Exercises,Wheelchair Management Next Visit Focus/Plan Next Note Type Treatment Note Next Visit Plan Continue resisted LE activities, increase standing activity endurance, including hurdles POC: LE/UE/core strengthening, gait and stair training, balance challenges, increasing activity tolerance
--- NOTE | 2024-02-20 17:06 | PT.OTN ---
Current Diagnoses Other symptoms and signs involving the musculoskeletal system (02/20/24) Weakness (02/20/24) Other malaise (02/20/24) Physical Therapy Treatment Note PT-OP-A Visit Information Start: 11/15/23 16:26 Freq: Status: Active Protocol: Document 02/20/24 13:51 SW (Rec: 02/20/24 14:34 SW [id number]) Out-Patient Physical Therapy Visit Information Visit Information Visit Type Treatment Note Visit Start Time 13:48 Visit Stop Time 14:26 Visit Number 23 Number of RAIL CAR PAINTER/SANDBLASTER Visits 1 PT-OP-B Current Condition Start: 11/15/23 16:26 Freq: Status: Active Protocol: Document 11/15/23 13:45 DCW (Rec: 11/16/23 10:20 DCW [id number]) Current Condition History of Current Condition Onset Date February 2021 Current Complaints Weakness, decreased activity tolerance, poor balance, physical debility History of Current Condition Pt is a 73 year old male presenting with a multi-year, highly complex medical history . Pt is well known to this clinic, and has been treated at this facility for the same symptoms multiple times over the past three years. Health complications initially began February 2021 with a severe bacterial infection, resulting in a months-long hospitalization requiring time on a ventilator, and then spent time at a rehab facility , not returning home until October 2021. Pt at that time wheelchair bound, severe weakness in lower extremities, particularly his ankles. Pt has experienced other health complications in the past two years, mainly involving cardiac issues, including an [place] and pacemaker placement, which both interrupted his rehabilitation from his illness. Pt was most recently treated at this facility earlier this year, was discharged 06/06/23 due to planned heart surgery. Pt has since had clips placed on his mitral and tricuspid valves/ Overall, pt continues to mobilize mainly in his w/c, however is spending time walking in his home with a FWW , and has been more independent with transfers. Pt previously wwas using full AFOs due to bilateral drop foot, however has switched to a softer ankler brace which clips to his shoe to limit drop foot, which offers less stability but makes standing from his w/c much easier due to allowing more ankle mobility and better LE positioning. Has recently been getting treatment for a UTI, although recently had to stop the antibiotics due to GI issues. Continues to exhibit general deconditioning, bilateral ankle weakness, decreased activity tolerance, poor balance, and increased dependence for IADLs/ADLs. Treatment Goals Patient/Caregiver Goals Pt's goals are to be able to ascend/descend stairs and to start to walk using a cane instead of a FWW. PT-OP-C Subjective Start: 11/15/23 16:26 Freq: Status: Active Protocol: Document 02/20/24 13:51 SW (Rec: 02/20/24 16:59 SW [id number]) OP-PT Subjective Patient Comments Patient Comments Pt reports no changes since last session. Pt reports stomach issues today, requesting arm strengthening today vs standing exercises using gait belt. PT-OP-E Functional Tests Start: 11/15/23 16:26 Freq: Status: Active Protocol: Document 02/13/24 14:30 DCW (Rec: 02/13/24 14:48 DCW [id number]) Functional Tests 2 Minute Walk Test Distance 125' Device Used FWW Comments 1.04 ft/sec 30 Second Sit to Stand Test Score x11 repetitions from w/c Comments unable to perform full leg extension Timed Up and Go (TUG) Score 47.35 /c FWW TUG Impairment Rating 100% Impaired (Score 20) PT-OP-G Mobility & Gait Start: 11/15/23 16:26 Freq: Status: Active Protocol: Document 02/13/24 14:30 DCW (Rec: 02/13/24 14:48 DCW [id number]) OP Gait Assessment Comments Gait Comments Pt ambulates with heavy use of UEs on FWW, ankle braces due to foot drop. Poor foot clearance, forward trunk flexion during gait. PT-OP-M Strength Start: 11/15/23 16:26 Freq: Status: Active Protocol: Document 11/15/23 13:45 DCW (Rec: 11/15/23 16:33 DCW [id number]) Hip Strength Hip Manual Muscle Testing Right Flexion (L2) 4 Good Abduction 4+ Good+ Adduction 4+ Good+ External Rotation 4 Good Internal Rotation 4 Good Left Flexion (L2) 4 Good Abduction 4+ Good+ Adduction 4+ Good+ External Rotation 4- Good- Internal Rotation 4 Good Knee Strength Knee Manual Muscle Testing Right Flexion (S2) 4- Good- Extension (L3) 4+ Good+ Left Flexion (S2) 4 Good Extension (L3) 4+ Good+ Ankle/Foot Strength Ankle and Foot Manual Muscle Testing Right Dorsiflexion (L4) 2 Poor Plantarflexion (S1) 2- Poor- Left Dorsiflexion (L4) 2- Poor- Plantarflexion (S1) 1 Trace PT-OP-Q Treatments Start: 11/15/23 16:26 Freq: Status: Active Protocol: Document 02/20/24 13:51 (Rec: 02/20/24 14:34 [id number]) Gym Equipment Shuttle Recovery Unilateral Squats Resistance 50# Reps/Time x50 each Bilateral Squats Resistance 112# Shuttle Recovery Platform Stable Reps/Time x50 Therapeutic Exercises Sitting Exercises Elbow extension Sitting Exercise Name Triceps Resistance Lvl 3 band Comments cued for tricep activation vs shoulder ext shoulder ext Sitting Exercise Name front and rear facing Side bilateral Resistance Tb #4 dark blue Reps/Minutes 2x10 Comments cued sit front w/c, posture FF Over head Side bilateral Resistance 4# wt on dowel Reps/Minutes 3x10 Horizontal Abduction Sitting Exercise Name Trunk rotation: UE Horizontal Abd/adduction in 90 deg flexion/abduction Side bilateral Resistance Yellow ball 1.1# R, Red ball 3 .3# L, bilateral red ball Comments cued for decreased UT tension PT-OP-T Assessment and Plan Start: 11/15/23 16:26 Freq: Status: Active Protocol: Document 02/20/24 13:51 (Rec: 02/20/24 14:34 [id number]) Physical Therapy Assessment Goals One Impairment Pt does not have an appropriate home exercise program Short Term Goal (STG) Pt to be independent and compliant with an appropriate HEP STG Duration 03/14/24 Three Impairment Pt ambulates 103' over the course of a two minute walk test Impairment . Line Crewman Goal (LTG) Pt to ambulate >600' using a FWW during a 6MWT in order to demonstrate decreasing burden of care and improved ability to perform ADLs independently. LTG Duration 05/13/24 - Improving Two Impairment TUG score of 62.02 /c FWW indicates increased risk of falls Impairment . Line Crewman Goal (LTG) Pt to improve TUG score using his FWW by at least 22 seconds to 40 in order to demonstrate improved gait ability and greater activity tolerance LTG Duration 05/13/24 - Improving Assessment Summary Assessment Pt requested focus on more UE work due to decreased tolerance due to upset stomach today. Pt tolerated session well, decreased strength in RUE compared to LUE. Plan to progress stairs and LE strength/ standing endurance next session as tolerated. Physical Therapy Plan Frequency and Duration Frequency of Treatment 2x/Week Plan of Care Start Date 02/13/24 Plan of Care End Date 05/13/24 Therapeutic Interventions Therapeutic Interventions Balance Training,Coordination Training,Gait Training,Home Exercise Program,Manual Therapy,Neuromuscular Re- education,Patient/Caregiver Education,Self-Care/Home Management,Soft Tissue Mobilization,Therapeutic Activities,Therapeutic Exercises,Wheelchair Management Next Visit Focus/Plan Next Note Type Treatment Note Next Visit Plan Continue resisted LE activities, increase standing activity endurance, including hurdles POC: LE/UE/core strengthening, gait and stair training, balance challenges, increasing activity tolerance
--- NOTE | 2024-02-22 14:26 | PT.OTN ---
Current Diagnoses Other symptoms and signs involving the musculoskeletal system (02/22/24) Weakness (02/22/24) Other malaise (02/22/24) Physical Therapy Treatment Note PT-OP-A Visit Information Start: 11/15/23 16:26 Freq: Status: Active Protocol: Document 02/22/24 13:42 SP (Rec: 02/22/24 14:32 SP [id number]) Out-Patient Physical Therapy Visit Information Visit Information Visit Type Treatment Note Visit Start Time 13:45 Visit Stop Time 14:26 Visit Number 24 Number of GYM TEACHER Visits 2 Evaluation Information Evaluation Date 11/15/23 PT-OP-B Current Condition Start: 11/15/23 16:26 Freq: Status: Active Protocol: Document 11/15/23 13:45 DCW (Rec: 11/16/23 10:20 DCW [id number]) Current Condition History of Current Condition Onset Date February 2021 Current Complaints Weakness, decreased activity tolerance, poor balance, physical debility History of Current Condition Pt is a 73 year old male presenting with a multi-year, highly complex medical history . Pt is well known to this clinic, and has been treated at this facility for the same symptoms multiple times over the past three years. Health complications initially began February 2021 with a severe bacterial infection, resulting in a months-long hospitalization requiring time on a ventilator, and then spent time at a rehab facility , not returning home until October 2021. Pt at that time wheelchair bound, severe weakness in lower extremities, particularly his ankles. Pt has experienced other health complications in the past two years, mainly involving cardiac issues, including an [place] and pacemaker placement, which both interrupted his rehabilitation from his illness. Pt was most recently treated at this facility earlier this year, was discharged 06/06/23 due to planned heart surgery. Pt has since had clips placed on his mitral and tricuspid valves/ Overall, pt continues to mobilize mainly in his w/c, however is spending time walking in his home with a FWW , and has been more independent with transfers. Pt previously wwas using full AFOs due to bilateral drop foot, however has switched to a softer ankler brace which clips to his shoe to limit drop foot, which offers less stability but makes standing from his w/c much easier due to allowing more ankle mobility and better LE positioning. Has recently been getting treatment for a UTI, although recently had to stop the antibiotics due to GI issues. Continues to exhibit general deconditioning, bilateral ankle weakness, decreased activity tolerance, poor balance, and increased dependence for IADLs/ADLs. Treatment Goals Patient/Caregiver Goals Pt's goals are to be able to ascend/descend stairs and to start to walk using a cane instead of a FWW. PT-OP-C Subjective Start: 11/15/23 16:26 Freq: Status: Active Protocol: Document 02/22/24 13:42 SP (Rec: 02/22/24 14:32 SP [id number]) OP-PT Subjective Patient Comments Patient Comments Pt reports arms were sore after last tx. PT-OP-E Functional Tests Start: 11/15/23 16:26 Freq: Status: Active Protocol: Document 02/13/24 14:30 DCW (Rec: 02/13/24 14:48 DCW [id number]) Functional Tests 2 Minute Walk Test Distance 125' Device Used FWW Comments 1.04 ft/sec 30 Second Sit to Stand Test Score x11 repetitions from w/c Comments unable to perform full leg extension Timed Up and Go (TUG) Score 47.35 /c FWW TUG Impairment Rating 100% Impaired (Score 20) PT-OP-G Mobility & Gait Start: 11/15/23 16:26 Freq: Status: Active Protocol: Document 02/13/24 14:30 DCW (Rec: 02/13/24 14:48 DCW [id number]) OP Gait Assessment Comments Gait Comments Pt ambulates with heavy use of UEs on FWW, ankle braces due to foot drop. Poor foot clearance, forward trunk flexion during gait. PT-OP-M Strength Start: 11/15/23 16:26 Freq: Status: Active Protocol: Document 11/15/23 13:45 DCW (Rec: 11/15/23 16:33 DCW [id number]) Hip Strength Hip Manual Muscle Testing Right Flexion (L2) 4 Good Abduction 4+ Good+ Adduction 4+ Good+ External Rotation 4 Good Internal Rotation 4 Good Left Flexion (L2) 4 Good Abduction 4+ Good+ Adduction 4+ Good+ External Rotation 4- Good- Internal Rotation 4 Good Knee Strength Knee Manual Muscle Testing Right Flexion (S2) 4- Good- Extension (L3) 4+ Good+ Left Flexion (S2) 4 Good Extension (L3) 4+ Good+ Ankle/Foot Strength Ankle and Foot Manual Muscle Testing Right Dorsiflexion (L4) 2 Poor Plantarflexion (S1) 2- Poor- Left Dorsiflexion (L4) 2- Poor- Plantarflexion (S1) 1 Trace PT-OP-Q Treatments Start: 11/15/23 16:26 Freq: Status: Active Protocol: Document 02/22/24 13:42 SP (Rec: 02/22/24 14:32 SP [id number]) Gym Equipment Shuttle Recovery Unilateral Squats Resistance 50# Reps/Time x50 each Bilateral Squats Resistance 112# Shuttle Recovery Platform Stable Reps/Time x50 Therapeutic Exercises Sitting Exercises chest press Side bilateral Resistance dowel + 5# wt Reps/Minutes 10, 10 Comments alternate with other exercises shoulder ext Sitting Exercise Name front facing Side bilateral Resistance Tb #4 dark blue Reps/Minutes 2x10 Comments cued sit front w/c, posture FF Over head Side bilateral Resistance dowel + 5# wt Reps/Minutes 11, 10 Other Exercises Resisted Ambulation Other Exercise Name Resisted side-stepping Resistance AROM Reps/Minutes 20 ft rail Comments between gait distances Gait Training Gait Activity Steps Description 4 stairs- end tx today Device Used B Rails Level of Assistance CGA Distance/Duration 5 steps, 2 sets Comments Ascend: Fwd step-to Descend: Retro step-to Matty QC Device Used B SBQC Level of Assistance CGA via gait belt, wc follow by GYM TEACHER Distance/Duration 58, 28 ft Treatment Focus LE strength, endurance Comments Cued for soft stepping advancement, pt tends to perform 4pt gait. PT-OP-T Assessment and Plan Start: 11/15/23 16:26 Freq: Status: Active Protocol: Document 02/22/24 13:42 SP (Rec: 02/22/24 14:32 SP [id number]) Physical Therapy Assessment Goals One Impairment Pt does not have an appropriate home exercise program Short Term Goal (STG) Pt to be independent and compliant with an appropriate HEP STG Duration 03/14/24 Three Impairment Pt ambulates 103' over the course of a two minute walk test Impairment . Long-Term Goal (LTG) Pt to ambulate >600' using a FWW during a 6MWT in order to demonstrate decreasing burden of care and improved ability to perform ADLs independently. LTG Duration 05/13/24 - Improving Two Impairment TUG score of 62.02 /c FWW indicates increased risk of falls Impairment . Long-Term Goal (LTG) Pt to improve TUG score using his FWW by at least 22 seconds to 40 in order to demonstrate improved gait ability and greater activity tolerance LTG Duration 05/13/24 - Improving Assessment Summary Assessment Pt improved tolerance more standing activities today. Good effort and tolerated increased resistance during UE ther ex. Only seated rest of UE and LE ther ex between gait distances. Physical Therapy Plan Frequency and Duration Frequency of Treatment 2x/Week Plan of Care Start Date 02/13/24 Plan of Care End Date 05/13/24 Therapeutic Interventions Therapeutic Interventions Balance Training,Coordination Training,Gait Training,Home Exercise Program,Manual Therapy,Neuromuscular Re- education,Patient/Caregiver Education,Self-Care/Home Management,Soft Tissue Mobilization,Therapeutic Activities,Therapeutic Exercises,Wheelchair Management Next Visit Focus/Plan Next Note Type Treatment Note Next Visit Plan Continue resisted LE activities, increase standing activity endurance, including hurdles POC: LE/UE/core strengthening, gait and stair training, balance challenges, increasing activity tolerance
--- NOTE | 2024-03-04 14:28 | PT.OTN ---
Current Diagnoses Other symptoms and signs involving the musculoskeletal system (03/04/24) Weakness (03/04/24) Other malaise (03/04/24) Physical Therapy Treatment Note PT-OP-A Visit Information Start: 11/15/23 16:26 Freq: Status: Active Protocol: Document 03/04/24 13:48 SP (Rec: 03/04/24 14:33 SP [id number]) Out-Patient Physical Therapy Visit Information Visit Information Visit Type Treatment Note Visit Start Time 13:48 Visit Stop Time 14:28 Visit Number 25 (08/10 PN) Number of SIGN ARTIST Visits 3 Evaluation Information Evaluation Date 11/15/23 PT-OP-B Current Condition Start: 11/15/23 16:26 Freq: Status: Active Protocol: Document 11/15/23 13:45 DCW (Rec: 11/16/23 10:20 DCW [id number]) Current Condition History of Current Condition Onset Date February 2021 Current Complaints Weakness, decreased activity tolerance, poor balance, physical debility History of Current Condition Pt is a 73 year old male presenting with a multi-year, highly complex medical history . Pt is well known to this clinic, and has been treated at this facility for the same symptoms multiple times over the past three years. Health complications initially began February 2021 with a severe bacterial infection, resulting in a months-long hospitalization requiring time on a ventilator, and then spent time at a rehab facility , not returning home until October 2021. Pt at that time wheelchair bound, severe weakness in lower extremities, particularly his ankles. Pt has experienced other health complications in the past two years, mainly involving cardiac issues, including an [place] and pacemaker placement, which both interrupted his rehabilitation from his illness. Pt was most recently treated at this facility earlier this year, was discharged 06/06/23 due to planned heart surgery. Pt has since had clips placed on his mitral and tricuspid valves/ Overall, pt continues to mobilize mainly in his w/c, however is spending time walking in his home with a FWW , and has been more independent with transfers. Pt previously wwas using full AFOs due to bilateral drop foot, however has switched to a softer ankler brace which clips to his shoe to limit drop foot, which offers less stability but makes standing from his w/c much easier due to allowing more ankle mobility and better LE positioning. Has recently been getting treatment for a UTI, although recently had to stop the antibiotics due to GI issues. Continues to exhibit general deconditioning, bilateral ankle weakness, decreased activity tolerance, poor balance, and increased dependence for IADLs/ADLs. Treatment Goals Patient/Caregiver Goals Pt's goals are to be able to ascend/descend stairs and to start to walk using a cane instead of a FWW. PT-OP-C Subjective Start: 11/15/23 16:26 Freq: Status: Active Protocol: Document 03/04/24 13:48 SP (Rec: 03/04/24 14:33 SP [id number]) OP-PT Subjective Patient Comments Patient Comments Pt reports had to cancel last appt due to intestinal issure when arrived to last appt. PT-OP-E Functional Tests Start: 11/15/23 16:26 Freq: Status: Active Protocol: Document 02/13/24 14:30 DCW (Rec: 02/13/24 14:48 DCW [id number]) Functional Tests 2 Minute Walk Test Distance 125' Device Used FWW Comments 1.04 ft/sec 30 Second Sit to Stand Test Score x11 repetitions from w/c Comments unable to perform full leg extension Timed Up and Go (TUG) Score 47.35 /c FWW TUG Impairment Rating 100% Impaired (Score 20) PT-OP-G Mobility & Gait Start: 11/15/23 16:26 Freq: Status: Active Protocol: Document 02/13/24 14:30 DCW (Rec: 02/13/24 14:48 DCW [id number]) OP Gait Assessment Comments Gait Comments Pt ambulates with heavy use of UEs on FWW, ankle braces due to foot drop. Poor foot clearance, forward trunk flexion during gait. PT-OP-M Strength Start: 11/15/23 16:26 Freq: Status: Active Protocol: Document 11/15/23 13:45 DCW (Rec: 11/15/23 16:33 DCW [id number]) Hip Strength Hip Manual Muscle Testing Right Flexion (L2) 4 Good Abduction 4+ Good+ Adduction 4+ Good+ External Rotation 4 Good Internal Rotation 4 Good Left Flexion (L2) 4 Good Abduction 4+ Good+ Adduction 4+ Good+ External Rotation 4- Good- Internal Rotation 4 Good Knee Strength Knee Manual Muscle Testing Right Flexion (S2) 4- Good- Extension (L3) 4+ Good+ Left Flexion (S2) 4 Good Extension (L3) 4+ Good+ Ankle/Foot Strength Ankle and Foot Manual Muscle Testing Right Dorsiflexion (L4) 2 Poor Plantarflexion (S1) 2- Poor- Left Dorsiflexion (L4) 2- Poor- Plantarflexion (S1) 1 Trace PT-OP-Q Treatments Start: 11/15/23 16:26 Freq: Status: Active Protocol: Document 03/04/24 13:48 SP (Rec: 03/04/24 14:33 SP [id number]) Gym Equipment Shuttle Recovery Unilateral Squats Resistance 50#>62# R, 50#> 61#>50# (2 navy bands) Reps/Time 20 x2 R , 25 x2 L Bilateral Squats Resistance 112# Shuttle Recovery Platform Stable Reps/Time x50 Gait Training Gait Activity Matty QC Device Used B SBQC Level of Assistance CGA via gait belt, wc follow by SIGN ARTIST Distance/Duration 75, 23 ft Treatment Focus LE strength, endurance Comments Cued for soft stepping advancement, pt tends to perform 4pt gait. Neuro Re-Education Treatment Balance Activities Hurdles Details Hurdles - fwd Equipment R HR, L qc Reps/Duration 10 ft 1 length before needed seated rest Comments step to alternating BLEs PT-OP-T Assessment and Plan Start: 11/15/23 16:26 Freq: Status: Active Protocol: Document 03/04/24 13:48 SP (Rec: 03/04/24 14:33 SP [id number]) Physical Therapy Assessment Goals One Impairment Pt does not have an appropriate home exercise program Short Term Goal (STG) Pt to be independent and compliant with an appropriate HEP STG Duration 03/14/24 Three Impairment Pt ambulates 103' over the course of a two minute walk test Impairment . White Metal Caster Goal (LTG) Pt to ambulate >600' using a FWW during a 6MWT in order to demonstrate decreasing burden of care and improved ability to perform ADLs independently. LTG Duration 05/13/24 - Improving Two Impairment TUG score of 62.02 /c FWW indicates increased risk of falls Impairment . Half-Way Goal (LTG) Pt to improve TUG score using his FWW by at least 22 seconds to 40 in order to demonstrate improved gait ability and greater activity tolerance LTG Duration 05/13/24 - Improving Assessment Summary Assessment Pt good effort and increased tolerance gait distance with Matty SBQC today up to 75 ft, w/ c follow but needed. Pogressed increased resistance on R during shuttle press but unable on L due to knee pain. REported L knee pain during natalio stepping, needed to flip last 2 hurdles closer to floor level during LLE stance time and RLe advancement. Physical Therapy Plan Frequency and Duration Frequency of Treatment 2x/Week Plan of Care Start Date 02/13/24 Plan of Care End Date 05/13/24 Therapeutic Interventions Therapeutic Interventions Balance Training,Coordination Training,Gait Training,Home Exercise Program,Manual Therapy,Neuromuscular Re- education,Patient/Caregiver Education,Self-Care/Home Management,Soft Tissue Mobilization,Therapeutic Activities,Therapeutic Exercises,Wheelchair Management Next Visit Focus/Plan Next Note Type Treatment Note Next Visit Plan Continue resisted LE activities, increase standing activity endurance, including hurdles POC: LE/UE/core strengthening, gait and stair training, balance challenges, increasing activity tolerance
--- NOTE | 2024-03-07 14:30 | PT.OTN ---
Current Diagnoses Other symptoms and signs involving the musculoskeletal system (03/07/24) Weakness (03/07/24) Other malaise (03/07/24) Physical Therapy Treatment Note PT-OP-A Visit Information Start: 11/15/23 16:26 Freq: Status: Active Protocol: Document 03/07/24 13:50 SP (Rec: 03/07/24 14:34 SP [id number]) Out-Patient Physical Therapy Visit Information Visit Information Visit Type Treatment Note Visit Start Time 13:50 Visit Stop Time 14:30 Visit Number 26 (610 with PN) Number of EDUCATIONAL MANAGER Visits 4 Evaluation Information Evaluation Date 11/15/23 PT-OP-B Current Condition Start: 11/15/23 16:26 Freq: Status: Active Protocol: Document 11/15/23 13:45 DCW (Rec: 11/16/23 10:20 DCW [id number]) Current Condition History of Current Condition Onset Date February 2021 Current Complaints Weakness, decreased activity tolerance, poor balance, physical debility History of Current Condition Pt is a 73 year old male presenting with a multi-year, highly complex medical history . Pt is well known to this clinic, and has been treated at this facility for the same symptoms multiple times over the past three years. Health complications initially began February 2021 with a severe bacterial infection, resulting in a months-long hospitalization requiring time on a ventilator, and then spent time at a rehab facility , not returning home until October 2021. Pt at that time wheelchair bound, severe weakness in lower extremities, particularly his ankles. Pt has experienced other health complications in the past two years, mainly involving cardiac issues, including an PR and pacemaker placement, which both interrupted his rehabilitation from his illness. Pt was most recently treated at this facility earlier this year, was discharged 06/06/23 due to planned heart surgery. Pt has since had clips placed on his mitral and tricuspid valves/ Overall, pt continues to mobilize mainly in his w/c, however is spending time walking in his home with a FWW , and has been more independent with transfers. Pt previously wwas using full AFOs due to bilateral drop foot, however has switched to a softer ankler brace which clips to his shoe to limit drop foot, which offers less stability but makes standing from his w/c much easier due to allowing more ankle mobility and better LE positioning. Has recently been getting treatment for a UTI, although recently had to stop the antibiotics due to GI issues. Continues to exhibit general deconditioning, bilateral ankle weakness, decreased activity tolerance, poor balance, and increased dependence for IADLs/ADLs. Treatment Goals Patient/Caregiver Goals Pt's goals are to be able to ascend/descend stairs and to start to walk using a cane instead of a FWW. PT-OP-C Subjective Start: 11/15/23 16:26 Freq: Status: Active Protocol: Document 03/07/24 13:50 SP (Rec: 03/07/24 14:34 SP [id number]) OP-PT Subjective Patient Comments Patient Comments Pt reports can't do alot of walking today, did to much last tx and I had a hard time walking for 2 days, has company coming in next 2 days and want to be able to get up move around and visit. PT-OP-E Functional Tests Start: 11/15/23 16:26 Freq: Status: Active Protocol: Document 02/13/24 14:30 DCW (Rec: 02/13/24 14:48 DCW [id number]) Functional Tests 2 Minute Walk Test Distance 125' Device Used FWW Comments 1.04 ft/sec 30 Second Sit to Stand Test Score x11 repetitions from w/c Comments unable to perform full leg extension Timed Up and Go (TUG) Score 47.35 /c FWW TUG Impairment Rating 100% Impaired (Score 20) PT-OP-G Mobility & Gait Start: 11/15/23 16:26 Freq: Status: Active Protocol: Document 02/13/24 14:30 DCW (Rec: 02/13/24 14:48 DCW [id number]) OP Gait Assessment Comments Gait Comments Pt ambulates with heavy use of UEs on FWW, ankle braces due to foot drop. Poor foot clearance, forward trunk flexion during gait. PT-OP-M Strength Start: 11/15/23 16:26 Freq: Status: Active Protocol: Document 11/15/23 13:45 DCW (Rec: 11/15/23 16:33 DCW [id number]) Hip Strength Hip Manual Muscle Testing Right Flexion (L2) 4 Good Abduction 4+ Good+ Adduction 4+ Good+ External Rotation 4 Good Internal Rotation 4 Good Left Flexion (L2) 4 Good Abduction 4+ Good+ Adduction 4+ Good+ External Rotation 4- Good- Internal Rotation 4 Good Knee Strength Knee Manual Muscle Testing Right Flexion (S2) 4- Good- Extension (L3) 4+ Good+ Left Flexion (S2) 4 Good Extension (L3) 4+ Good+ Ankle/Foot Strength Ankle and Foot Manual Muscle Testing Right Dorsiflexion (L4) 2 Poor Plantarflexion (S1) 2- Poor- Left Dorsiflexion (L4) 2- Poor- Plantarflexion (S1) 1 Trace PT-OP-Q Treatments Start: 11/15/23 16:26 Freq: Status: Active Protocol: Document 03/07/24 13:50 SP (Rec: 03/07/24 14:34 SP [id number]) Therapeutic Exercises Sitting Exercises STS Sitting Exercise Name encouraged perform 5 reps 2-3 xday for strengthening. Equipment Used rail Reps/Minutes 5 reps Comments cues hip hinge, push from w/c stand and reach back slow descend FF Over head Side bilateral Resistance dowel + 4# wt Reps/Minutes 10x2 Comments set pre/post hurdles LAQ Side bilateral Resistance 4# leg wt Reps/Minutes x30 reps alternating Comments reports painfree, cued alternating allow opp LE brief rest. Gait Training Gait Activity Steps Description 4 stairs- end tx today Device Used B Rails Level of Assistance CGA Distance/Duration 5 steps, 6 sets Comments Ascend: Fwd step-to Descend: Retro step-to Cues for more upright posture Neuro Re-Education Treatment Balance Activities Hurdles Details Hurdles - fwd & lateral Equipment B HR, 2# leg wt Reps/Duration 10 ft fwd x2 laps, lateral x1 lap Comments step to alternating BLEs PT-OP-T Assessment and Plan Start: 11/15/23 16:26 Freq: Status: Active Protocol: Document 03/07/24 13:50 SP (Rec: 03/07/24 14:34 SP [id number]) Physical Therapy Assessment Goals One Impairment Pt does not have an appropriate home exercise program Short Term Goal (STG) Pt to be independent and compliant with an appropriate HEP STG Duration 03/14/24 Three Impairment Pt ambulates 103' over the course of a two minute walk test Impairment . [facility] Goal (LTG) Pt to ambulate >600' using a FWW during a 6MWT in order to demonstrate decreasing burden of care and improved ability to perform ADLs independently. LTG Duration 05/13/24 - Improving Two Impairment TUG score of 62.02 /c FWW indicates increased risk of falls Impairment . Ticket Printer Goal (LTG) Pt to improve TUG score using his FWW by at least 22 seconds to 40 in order to demonstrate improved gait ability and greater activity tolerance LTG Duration 05/13/24 - Improving Assessment Summary Assessment Shuttle recovery unavailable today. Pt demonstrates good effort throughout tx. Rest breaks provided for recovery time between standing activities. Improved foot clearance during natalio stepping with return to low resistance with allowance progress LE and functional strengthening. Encouraged 5 reps STS 2-3 x during day for carryover functional strengthening with verbalize in agreement would help. Physical Therapy Plan Frequency and Duration Frequency of Treatment 2x/Week Plan of Care Start Date 02/13/24 Plan of Care End Date 05/13/24 Therapeutic Interventions Therapeutic Interventions Balance Training,Coordination Training,Gait Training,Home Exercise Program,Manual Therapy,Neuromuscular Re- education,Patient/Caregiver Education,Self-Care/Home Management,Soft Tissue Mobilization,Therapeutic Activities,Therapeutic Exercises,Wheelchair Management Next Visit Focus/Plan Next Note Type Treatment Note Next Visit Plan Continue resisted LE and UE activities alternating, increase standing activity endurance, including hurdles. POC: LE/UE/core strengthening, gait and stair training, balance challenges, increasing activity tolerance
--- NOTE | 2024-03-14 14:24 | PT.OTN ---
Current Diagnoses Other symptoms and signs involving the musculoskeletal system (03/14/24) Weakness (03/14/24) Other malaise (03/14/24) Physical Therapy Treatment Note PT-OP-A Visit Information Start: 11/15/23 16:26 Freq: Status: Active Protocol: Document 03/14/24 13:45 DCW (Rec: 03/14/24 14:24 DCW [id number]) Out-Patient Physical Therapy Visit Information Visit Information Visit Type Treatment Note Visit Start Time 13:45 Visit Stop Time 14:30 Visit Number 27 (7/10 with PN) Number of PERCH MENDER Visits 0 Evaluation Information Evaluation Date 11/15/23 PT-OP-B Current Condition Start: 11/15/23 16:26 Freq: Status: Active Protocol: Document 11/15/23 13:45 DCW (Rec: 11/16/23 10:20 DCW [id number]) Current Condition History of Current Condition Onset Date February 2021 Current Complaints Weakness, decreased activity tolerance, poor balance, physical debility History of Current Condition Pt is a 73 year old male presenting with a multi-year, highly complex medical history . Pt is well known to this clinic, and has been treated at this facility for the same symptoms multiple times over the past three years. Health complications initially began February 2021 with a severe bacterial infection, resulting in a months-long hospitalization requiring time on a ventilator, and then spent time at a rehab facility , not returning home until October 2021. Pt at that time wheelchair bound, severe weakness in lower extremities, particularly his ankles. Pt has experienced other health complications in the past two years, mainly involving cardiac issues, including an VA and pacemaker placement, which both interrupted his rehabilitation from his illness. Pt was most recently treated at this facility earlier this year, was discharged 06/06/23 due to planned heart surgery. Pt has since had clips placed on his mitral and tricuspid valves/ Overall, pt continues to mobilize mainly in his w/c, however is spending time walking in his home with a FWW , and has been more independent with transfers. Pt previously wwas using full AFOs due to bilateral drop foot, however has switched to a softer ankler brace which clips to his shoe to limit drop foot, which offers less stability but makes standing from his w/c much easier due to allowing more ankle mobility and better LE positioning. Has recently been getting treatment for a UTI, although recently had to stop the antibiotics due to GI issues. Continues to exhibit general deconditioning, bilateral ankle weakness, decreased activity tolerance, poor balance, and increased dependence for IADLs/ADLs. Treatment Goals Patient/Caregiver Goals Pt's goals are to be able to ascend/descend stairs and to start to walk using a cane instead of a FWW. PT-OP-C Subjective Start: 11/15/23 16:26 Freq: Status: Active Protocol: Document 03/14/24 13:45 DCW (Rec: 03/14/24 14:24 DCW [id number]) OP-PT Subjective Patient Comments Patient Comments Pt once again very limited with activities secondary to ongoing GI issues. PT-OP-E Functional Tests Start: 11/15/23 16:26 Freq: Status: Active Protocol: Document 02/13/24 14:30 DCW (Rec: 02/13/24 14:48 DCW [id number]) Functional Tests 2 Minute Walk Test Distance 125' Device Used FWW Comments 1.04 ft/sec 30 Second Sit to Stand Test Score x11 repetitions from w/c Comments unable to perform full leg extension Timed Up and Go (TUG) Score 47.35 /c FWW TUG Impairment Rating 100% Impaired (Score 20) PT-OP-G Mobility & Gait Start: 11/15/23 16:26 Freq: Status: Active Protocol: Document 02/13/24 14:30 DCW (Rec: 02/13/24 14:48 DCW [id number]) OP Gait Assessment Comments Gait Comments Pt ambulates with heavy use of UEs on FWW, ankle braces due to foot drop. Poor foot clearance, forward trunk flexion during gait. PT-OP-M Strength Start: 11/15/23 16:26 Freq: Status: Active Protocol: Document 11/15/23 13:45 DCW (Rec: 11/15/23 16:33 DCW [id number]) Hip Strength Hip Manual Muscle Testing Right Flexion (L2) 4 Good Abduction 4+ Good+ Adduction 4+ Good+ External Rotation 4 Good Internal Rotation 4 Good Left Flexion (L2) 4 Good Abduction 4+ Good+ Adduction 4+ Good+ External Rotation 4- Good- Internal Rotation 4 Good Knee Strength Knee Manual Muscle Testing Right Flexion (S2) 4- Good- Extension (L3) 4+ Good+ Left Flexion (S2) 4 Good Extension (L3) 4+ Good+ Ankle/Foot Strength Ankle and Foot Manual Muscle Testing Right Dorsiflexion (L4) 2 Poor Plantarflexion (S1) 2- Poor- Left Dorsiflexion (L4) 2- Poor- Plantarflexion (S1) 1 Trace PT-OP-Q Treatments Start: 11/15/23 16:26 Freq: Status: Active Protocol: Document 03/14/24 13:45 DCW (Rec: 03/14/24 14:24 DCW [id number]) Gym Equipment Shuttle Recovery Unilateral Squats Resistance 50# Shuttle Recovery Platform Stable Bilateral Squats Resistance 75# Shuttle Recovery Platform Stable Therapeutic Exercises Supine Exercises LTR Supine Exercise Name LTR Side bilateral Calf Stretch Supine Exercise Name Calf stretch Side bilateral Adductor Stretch Supine Exercise Name Hip Adduction stretch Side bilateral Single KtC Supine Exercise Name Single KtC Side bilateral Hamstring Stretch Supine Exercise Name Hamstring stretch Side bilateral PT-OP-T Assessment and Plan Start: 11/15/23 16:26 Freq: Status: Active Protocol: Document 03/14/24 13:45 DCW (Rec: 03/14/24 14:24 DCW [id number]) Physical Therapy Assessment Impairments Impairments Activity Tolerance,Balance, Coordination,Functional Activities,Functional Mobility ,Gait,Posture,ROM,Soft Tissue Mobility,Strength,Tone, Transfers Goals One Impairment Pt does not have an appropriate home exercise program Short Term Goal (STG) Pt to be independent and compliant with an appropriate HEP STG Duration 03/14/24 Three Impairment Pt ambulates 103' over the course of a two minute walk test Impairment . Detention Goal (LTG) Pt to ambulate >600' using a FWW during a 6MWT in order to demonstrate decreasing burden of care and improved ability to perform ADLs independently. LTG Duration 05/13/24 - Improving Two Impairment TUG score of 62.02 /c FWW indicates increased risk of falls Impairment . Detention Goal (LTG) Pt to improve TUG score using his FWW by at least 22 seconds to 40 in order to demonstrate improved gait ability and greater activity tolerance LTG Duration 05/13/24 - Improving Assessment Summary Assessment Reduced resistance and pt still very limited with participation today. Pt experiencing upset stomach and intestinal discomfort.Very slow movement between exercises, quickly fatigued. Discussed that pt frequently has GI complaints, recommended he touch base with PCP for potential referral. Physical Therapy Plan Frequency and Duration Frequency of Treatment 2x/Week Plan of Care Start Date 02/13/24 Plan of Care End Date 05/13/24 Therapeutic Interventions Therapeutic Interventions Balance Training,Coordination Training,Gait Training,Home Exercise Program,Manual Therapy,Neuromuscular Re- education,Patient/Caregiver Education,Self-Care/Home Management,Soft Tissue Mobilization,Therapeutic Activities,Therapeutic Exercises,Wheelchair Management Next Visit Focus/Plan Next Note Type Treatment Note Next Visit Plan Continue resisted LE and UE activities alternating, increase standing activity endurance, including hurdles. POC: LE/UE/core strengthening, gait and stair training, balance challenges, increasing activity tolerance
--- NOTE | 2024-03-28 14:27 | PT.OTN ---
Current Diagnoses Other symptoms and signs involving the musculoskeletal system (03/28/24) Weakness (03/28/24) Other malaise (03/28/24) Physical Therapy Treatment Note PT-OP-A Visit Information Start: 11/15/23 16:26 Freq: Status: Active Protocol: Document 03/28/24 13:47 SP (Rec: 03/28/24 14:35 SP [id number]) Out-Patient Physical Therapy Visit Information Visit Information Visit Type Treatment Note Visit Start Time 13:47 Visit Stop Time 14:27 Visit Number 28 (8 with PN) Number of FIXED ASSETS ACCOUNTANT Visits 1 Evaluation Information Evaluation Date 11/15/23 PT-OP-B Current Condition Start: 11/15/23 16:26 Freq: Status: Active Protocol: Document 11/15/23 13:45 DCW (Rec: 11/16/23 10:20 DCW [id number]) Current Condition History of Current Condition Onset Date February 2021 Current Complaints Weakness, decreased activity tolerance, poor balance, physical debility History of Current Condition Pt is a 73 year old male presenting with a multi-year, highly complex medical history . Pt is well known to this clinic, and has been treated at this facility for the same symptoms multiple times over the past three years. Health complications initially began February 2021 with a severe bacterial infection, resulting in a months-long hospitalization requiring time on a ventilator, and then spent time at a rehab facility , not returning home until October 2021. Pt at that time wheelchair bound, severe weakness in lower extremities, particularly his ankles. Pt has experienced other health complications in the past two years, mainly involving cardiac issues, including an CT and pacemaker placement, which both interrupted his rehabilitation from his illness. Pt was most recently treated at this facility earlier this year, was discharged 06/06/23 due to planned heart surgery. Pt has since had clips placed on his mitral and tricuspid valves/ Overall, pt continues to mobilize mainly in his w/c, however is spending time walking in his home with a FWW , and has been more independent with transfers. Pt previously wwas using full AFOs due to bilateral drop foot, however has switched to a softer ankler brace which clips to his shoe to limit drop foot, which offers less stability but makes standing from his w/c much easier due to allowing more ankle mobility and better LE positioning. Has recently been getting treatment for a UTI, although recently had to stop the antibiotics due to GI issues. Continues to exhibit general deconditioning, bilateral ankle weakness, decreased activity tolerance, poor balance, and increased dependence for IADLs/ADLs. Treatment Goals Patient/Caregiver Goals Pt's goals are to be able to ascend/descend stairs and to start to walk using a cane instead of a FWW. PT-OP-C Subjective Start: 11/15/23 16:26 Freq: Status: Active Protocol: Document 03/28/24 13:47 SP (Rec: 03/28/24 14:35 SP [id number]) OP-PT Subjective Patient Comments Patient Comments Pt reports was in the ER 03/19 for back pain. Was sent home with hydrocodone wiht Tylenol and hasn't need to take in past 2 days. Saw follow up with Dr Otero with provided refill Narco and Clydobensiprime TID 5 mg 10 mg at night for help muscle spasms and pain. PT-OP-E Functional Tests Start: 11/15/23 16:26 Freq: Status: Active Protocol: Document 02/13/24 14:30 DCW (Rec: 02/13/24 14:48 DCW [id number]) Functional Tests 2 Minute Walk Test Distance 125' Device Used FWW Comments 1.04 ft/sec 30 Second Sit to Stand Test Score x11 repetitions from w/c Comments unable to perform full leg extension Timed Up and Go (TUG) Score 47.35 /c FWW TUG Impairment Rating 100% Impaired (Score 20) PT-OP-G Mobility & Gait Start: 11/15/23 16:26 Freq: Status: Active Protocol: Document 02/13/24 14:30 DCW (Rec: 02/13/24 14:48 DCW [id number]) OP Gait Assessment Comments Gait Comments Pt ambulates with heavy use of UEs on FWW, ankle braces due to foot drop. Poor foot clearance, forward trunk flexion during gait. PT-OP-M Strength Start: 11/15/23 16:26 Freq: Status: Active Protocol: Document 11/15/23 13:45 DCW (Rec: 11/15/23 16:33 DCW [id number]) Hip Strength Hip Manual Muscle Testing Right Flexion (L2) 4 Good Abduction 4+ Good+ Adduction 4+ Good+ External Rotation 4 Good Internal Rotation 4 Good Left Flexion (L2) 4 Good Abduction 4+ Good+ Adduction 4+ Good+ External Rotation 4- Good- Internal Rotation 4 Good Knee Strength Knee Manual Muscle Testing Right Flexion (S2) 4- Good- Extension (L3) 4+ Good+ Left Flexion (S2) 4 Good Extension (L3) 4+ Good+ Ankle/Foot Strength Ankle and Foot Manual Muscle Testing Right Dorsiflexion (L4) 2 Poor Plantarflexion (S1) 2- Poor- Left Dorsiflexion (L4) 2- Poor- Plantarflexion (S1) 1 Trace PT-OP-Q Treatments Start: 11/15/23 16:26 Freq: Status: Active Protocol: Document 03/28/24 13:47 SP (Rec: 03/28/24 14:35 SP [id number]) Gym Equipment Shuttle Recovery Unilateral Squats Resistance 50# (2 navy) Shuttle Recovery Platform Stable Reps/Time 20 Bilateral Squats Resistance 75# (3 navy) Shuttle Recovery Platform Stable Reps/Time 25 Therapeutic Exercises Sitting Exercises trunk flexion Sitting Exercise Name in PT Resistance TB #3 [place] anchored behind shoulders Reps/Minutes 2x10 Comments cued sit away from chair Rows Sitting Exercise Name in PT Side bilateral Resistance Tb #3 Reps/Minutes x20 Comments cued upright posture HS curl Sitting Exercise Name inPT Side bilateral Resistance [place] green TB- therapist achored Reps/Minutes 2x15 Comments alternate with hip abd shoulder ext Sitting Exercise Name rear facing pull down Side bilateral Resistance Tb #3 dark blue Reps/Minutes 2x15 Comments cued sit front w/c, posture hip abuction Sitting Exercise Name trialed in PT Side bilateral Resistance [place] green TB- therapist achored Reps/Minutes 2x15 Comments cues hip abd Other Exercises retro stepping Other Exercise Name retro stepping Resistance aROM Equipment Used //bars B UE Reps/Minutes 10 ft x2 laps Resisted Ambulation Other Exercise Name Resisted side-stepping Side bilateral Resistance AROM Equipment Used bars Matty Reps/Minutes 10 x2ft rail Gait Training Gait Activity FWW Device Used FWW Level of Assistance SBA Distance/Duration 30 ft within gym w/c follow Treatment Focus foot clearance & stride, proximal to FWW UE support needed Comments cued more proximal to FWW, increased foot clearance end of distance due to tiring. PT-OP-T Assessment and Plan Start: 11/15/23 16:26 Freq: Status: Active Protocol: Document 03/28/24 13:47 SP (Rec: 03/28/24 14:35 SP [id number]) Physical Therapy Assessment Goals One Impairment Pt does not have an appropriate home exercise program Short Term Goal (STG) Pt to be independent and compliant with an appropriate HEP STG Duration 03/14/24 Three Impairment Pt ambulates 103' over the course of a two minute walk test Impairment . Validation Specialist Goal (LTG) Pt to ambulate >600' using a FWW during a 6MWT in order to demonstrate decreasing burden of care and improved ability to perform ADLs independently. LTG Duration 05/13/24 - Improving Two Impairment TUG score of 62.02 /c FWW indicates increased risk of falls Impairment . Validation Specialist Goal (LTG) Pt to improve TUG score using his FWW by at least 22 seconds to 40 in order to demonstrate improved gait ability and greater activity tolerance LTG Duration 05/13/24 - Improving Assessment Summary Assessment Pt decreased standing endurance today walking, recovery from back pain since last tx. He was able to complete 2 standing directional stepping activities before needing seated rests. CUes for postural positioning seated resisted ther ex away from back of his w/c to allow core and LE strengthening. Pt reports no back pain with all activities today just muscles tired. Physical Therapy Plan Frequency and Duration Frequency of Treatment 2x/Week Plan of Care Start Date 02/13/24 Plan of Care End Date 05/13/24 Therapeutic Interventions Therapeutic Interventions Balance Training,Coordination Training,Gait Training,Home Exercise Program,Manual Therapy,Neuromuscular Re- education,Patient/Caregiver Education,Self-Care/Home Management,Soft Tissue Mobilization,Therapeutic Activities,Therapeutic Exercises,Wheelchair Management Next Visit Focus/Plan Next Note Type Treatment Note Next Visit Plan REvisit hurdles and stairs if florencia next tx. POC: Continue resisted LE and UE activities alternating, increase standing activity endurance, including hurdles. POC: LE/UE/core strengthening, gait and stair training, balance challenges, increasing activity tolerance
--- NOTE | 2024-04-01 14:27 | PT.OTN ---
Current Diagnoses Other symptoms and signs involving the musculoskeletal system (04/01/24) Weakness (04/01/24) Other malaise (04/01/24) Physical Therapy Treatment Note PT-OP-A Visit Information Start: 11/15/23 16:26 Freq: Status: Active Protocol: Document 04/01/24 13:47 SP (Rec: 04/01/24 14:46 SP [id number]) Out-Patient Physical Therapy Visit Information Visit Information Visit Type Treatment Note Visit Start Time 13:47 Visit Stop Time 14:27 Visit Number 29 (12/11 with PN) Number of DISTRICT SERVICE MANAGER Visits 2 Evaluation Information Evaluation Date 11/15/23 PT-OP-B Current Condition Start: 11/15/23 16:26 Freq: Status: Active Protocol: Document 11/15/23 13:45 DCW (Rec: 11/16/23 10:20 DCW [id number]) Current Condition History of Current Condition Onset Date February 2021 Current Complaints Weakness, decreased activity tolerance, poor balance, physical debility History of Current Condition Pt is a 73 year old male presenting with a multi-year, highly complex medical history . Pt is well known to this clinic, and has been treated at this facility for the same symptoms multiple times over the past three years. Health complications initially began February 2021 with a severe bacterial infection, resulting in a months-long hospitalization requiring time on a ventilator, and then spent time at a rehab facility , not returning home until October 2021. Pt at that time wheelchair bound, severe weakness in lower extremities, particularly his ankles. Pt has experienced other health complications in the past two years, mainly involving cardiac issues, including an [place] and pacemaker placement, which both interrupted his rehabilitation from his illness. Pt was most recently treated at this facility earlier this year, was discharged 06/06/23 due to planned heart surgery. Pt has since had clips placed on his mitral and tricuspid valves/ Overall, pt continues to mobilize mainly in his w/c, however is spending time walking in his home with a FWW , and has been more independent with transfers. Pt previously wwas using full AFOs due to bilateral drop foot, however has switched to a softer ankler brace which clips to his shoe to limit drop foot, which offers less stability but makes standing from his w/c much easier due to allowing more ankle mobility and better LE positioning. Has recently been getting treatment for a UTI, although recently had to stop the antibiotics due to GI issues. Continues to exhibit general deconditioning, bilateral ankle weakness, decreased activity tolerance, poor balance, and increased dependence for IADLs/ADLs. Treatment Goals Patient/Caregiver Goals Pt's goals are to be able to ascend/descend stairs and to start to walk using a cane instead of a FWW. PT-OP-C Subjective Start: 11/15/23 16:26 Freq: Status: Active Protocol: Document 04/01/24 13:47 SP (Rec: 04/01/24 14:46 SP [id number]) OP-PT Subjective Patient Comments Patient Comments Pt reported was instructec to double dose of BP medication, told BID. He took at 8am and had LUE BP 73/42 at 11am with little lightheadedness, arrival 104/70 seated resting, 109/70 HR 69 standing with FWW. Is having a walk in tub installed. PT-OP-E Functional Tests Start: 11/15/23 16:26 Freq: Status: Active Protocol: Document 02/13/24 14:30 DCW (Rec: 02/13/24 14:48 DCW [id number]) Functional Tests 2 Minute Walk Test Distance 125' Device Used FWW Comments 1.04 ft/sec 30 Second Sit to Stand Test Score x11 repetitions from w/c Comments unable to perform full leg extension Timed Up and Go (TUG) Score 47.35 /c FWW TUG Impairment Rating 100% Impaired (Score 20) PT-OP-G Mobility & Gait Start: 11/15/23 16:26 Freq: Status: Active Protocol: Document 02/13/24 14:30 DCW (Rec: 02/13/24 14:48 DCW [id number]) OP Gait Assessment Comments Gait Comments Pt ambulates with heavy use of UEs on FWW, ankle braces due to foot drop. Poor foot clearance, forward trunk flexion during gait. PT-OP-M Strength Start: 11/15/23 16:26 Freq: Status: Active Protocol: Document 11/15/23 13:45 DCW (Rec: 11/15/23 16:33 DCW [id number]) Hip Strength Hip Manual Muscle Testing Right Flexion (L2) 4 Good Abduction 4+ Good+ Adduction 4+ Good+ External Rotation 4 Good Internal Rotation 4 Good Left Flexion (L2) 4 Good Abduction 4+ Good+ Adduction 4+ Good+ External Rotation 4- Good- Internal Rotation 4 Good Knee Strength Knee Manual Muscle Testing Right Flexion (S2) 4- Good- Extension (L3) 4+ Good+ Left Flexion (S2) 4 Good Extension (L3) 4+ Good+ Ankle/Foot Strength Ankle and Foot Manual Muscle Testing Right Dorsiflexion (L4) 2 Poor Plantarflexion (S1) 2- Poor- Left Dorsiflexion (L4) 2- Poor- Plantarflexion (S1) 1 Trace PT-OP-Q Treatments Start: 11/15/23 16:26 Freq: Status: Active Protocol: Document 04/01/24 13:47 SP (Rec: 04/01/24 14:46 SP [id number]) Gym Equipment Shuttle Recovery Bilateral Squats Details 122/77 HR 72 Resistance 100# (4 navy) Shuttle Recovery Platform Stable Reps/Time 30 Therapeutic Exercises Sitting Exercises Rows Sitting Exercise Name in PT Side bilateral Resistance Tb #3 on dowel, therapist anchors Reps/Minutes x20 Comments cued sit front seat, upright posture HS curl Sitting Exercise Name inPT Side bilateral Resistance [place] green TB- therapist achored Reps/Minutes x30 reps each Comments alternate with hip abd chest press Side bilateral Resistance dowel + 5# wt Reps/Minutes 2 min Other Exercises Resisted Ambulation Other Exercise Name Resisted side-stepping Side bilateral Resistance AROM Equipment Used bars Matty Reps/Minutes 10 x2ft rail Comments LUE automated BP: 134/86 HR 71 Gait Training Gait Activity Steps Description 4 stairs- end tx today Device Used B Rails Level of Assistance CGA Distance/Duration 5 steps, 3 sets Comments Ascend: Fwd step-to Descend: Retro step-to Cues for more upright posture FWW Device Used FWW Level of Assistance SBA Distance/Duration 30 ft, 15 ft within gym w/c follow Treatment Focus foot clearance & stride, proximal to FWW UE support needed Comments improved more proximal to FWW, increased foot clearance with distance. Self-Care/Home Management Treatment Education Patient Education Safety Other Education Education provided to pt taking BP checks and logging for safety awareness to physician how acclimating to double dose stated was told to do. PT-OP-T Assessment and Plan Start: 11/15/23 16:26 Freq: Status: Active Protocol: Document 04/01/24 13:47 SP (Rec: 04/01/24 14:46 SP [id number]) Physical Therapy Assessment Goals One Impairment Pt does not have an appropriate home exercise program Short Term Goal (STG) Pt to be independent and compliant with an appropriate HEP STG Duration 03/14/24 Three Impairment Pt ambulates 103' over the course of a two minute walk test Impairment . Residential Goal (LTG) Pt to ambulate >600' using a FWW during a 6MWT in order to demonstrate decreasing burden of care and improved ability to perform ADLs independently. LTG Duration 05/13/24 - Improving Two Impairment TUG score of 62.02 /c FWW indicates increased risk of falls Impairment . Geopolitics Teacher Goal (LTG) Pt to improve TUG score using his FWW by at least 22 seconds to 40 in order to demonstrate improved gait ability and greater activity tolerance LTG Duration 05/13/24 - Improving Assessment Summary Assessment Pt's LUE automated BP slow elevation with activity 104/70 seated resting, 109/70 HR 69 standing, standing activity 134/86 HR 71, compared to earlier this am BP 73/42 after doubled dose BP med as instructed. Pt had no adverse affects with activity, just needed seated rest between activities for recovering tiring. Education provided for completing BP logs for next few days, provided ones taken in PT for safety awareness and discussed if low be sure to tell physican, and pt verbalized understanding. Physical Therapy Plan Frequency and Duration Frequency of Treatment 2x/Week Plan of Care Start Date 02/13/24 Plan of Care End Date 05/13/24 Therapeutic Interventions Therapeutic Interventions Balance Training,Coordination Training,Gait Training,Home Exercise Program,Manual Therapy,Neuromuscular Re- education,Patient/Caregiver Education,Self-Care/Home Management,Soft Tissue Mobilization,Therapeutic Activities,Therapeutic Exercises,Wheelchair Management Next Visit Focus/Plan Next Note Type Progress Note Next Visit Plan PN 10th visit next appt. Continue BP check due to increase BP med. POC: Continue resisted LE and UE activities alternating, increase standing activity endurance, including hurdles. POC: LE/UE/core strengthening, gait and stair training, balance challenges, increasing activity tolerance
--- NOTE | 2024-04-05 14:29 | PT.OTN ---
Current Diagnoses Other symptoms and signs involving the musculoskeletal system (04/05/24) Weakness (04/05/24) Other malaise (04/05/24) Physical Therapy Treatment Note PT-OP-A Visit Information Start: 11/15/23 16:26 Freq: Status: Active Protocol: Document 04/05/24 13:45 DCW (Rec: 04/05/24 14:28 DCW [id number]) Out-Patient Physical Therapy Visit Information Visit Information Visit Type Progress Note Visit Start Time 13:45 Visit Stop Time 14:30 Visit Number 30 Number of IP LITIGATION ASSOCIATE Visits 0 Evaluation Information Evaluation Date 11/15/23 PT-OP-B Current Condition Start: 11/15/23 16:26 Freq: Status: Active Protocol: Document 11/15/23 13:45 DCW (Rec: 11/16/23 10:20 DCW [id number]) Current Condition History of Current Condition Onset Date February 2021 Current Complaints Weakness, decreased activity tolerance, poor balance, physical debility History of Current Condition Pt is a 73 year old male presenting with a multi-year, highly complex medical history . Pt is well known to this clinic, and has been treated at this facility for the same symptoms multiple times over the past three years. Health complications initially began February 2021 with a severe bacterial infection, resulting in a months-long hospitalization requiring time on a ventilator, and then spent time at a rehab facility , not returning home until October 2021. Pt at that time wheelchair bound, severe weakness in lower extremities, particularly his ankles. Pt has experienced other health complications in the past two years, mainly involving cardiac issues, including an [place] and pacemaker placement, which both interrupted his rehabilitation from his illness. Pt was most recently treated at this facility earlier this year, was discharged 06/06/23 due to planned heart surgery. Pt has since had clips placed on his mitral and tricuspid valves/ Overall, pt continues to mobilize mainly in his w/c, however is spending time walking in his home with a FWW , and has been more independent with transfers. Pt previously wwas using full AFOs due to bilateral drop foot, however has switched to a softer ankler brace which clips to his shoe to limit drop foot, which offers less stability but makes standing from his w/c much easier due to allowing more ankle mobility and better LE positioning. Has recently been getting treatment for a UTI, although recently had to stop the antibiotics due to GI issues. Continues to exhibit general deconditioning, bilateral ankle weakness, decreased activity tolerance, poor balance, and increased dependence for IADLs/ADLs. Treatment Goals Patient/Caregiver Goals Pt's goals are to be able to ascend/descend stairs and to start to walk using a cane instead of a FWW. PT-OP-C Subjective Start: 11/15/23 16:26 Freq: Status: Active Protocol: Document 04/05/24 13:45 DCW (Rec: 04/05/24 14:28 DCW [id number]) OP-PT Subjective Patient Comments Patient Comments Pt just feels blah today. PT-OP-E Functional Tests Start: 11/15/23 16:26 Freq: Status: Active Protocol: Document 04/05/24 13:45 DCW (Rec: 04/05/24 14:28 DCW [id number]) Functional Tests 2 Minute Walk Test Device Used FWW Comments 1.03 ft/sec PT-OP-G Mobility & Gait Start: 11/15/23 16:26 Freq: Status: Active Protocol: Document 02/13/24 14:30 DCW (Rec: 02/13/24 14:48 DCW [id number]) OP Gait Assessment Comments Gait Comments Pt ambulates with heavy use of UEs on FWW, ankle braces due to foot drop. Poor foot clearance, forward trunk flexion during gait. PT-OP-M Strength Start: 11/15/23 16:26 Freq: Status: Active Protocol: Document 11/15/23 13:45 DCW (Rec: 11/15/23 16:33 DCW [id number]) Hip Strength Hip Manual Muscle Testing Right Flexion (L2) 4 Good Abduction 4+ Good+ Adduction 4+ Good+ External Rotation 4 Good Internal Rotation 4 Good Left Flexion (L2) 4 Good Abduction 4+ Good+ Adduction 4+ Good+ External Rotation 4- Good- Internal Rotation 4 Good Knee Strength Knee Manual Muscle Testing Right Flexion (S2) 4- Good- Extension (L3) 4+ Good+ Left Flexion (S2) 4 Good Extension (L3) 4+ Good+ Ankle/Foot Strength Ankle and Foot Manual Muscle Testing Right Dorsiflexion (L4) 2 Poor Plantarflexion (S1) 2- Poor- Left Dorsiflexion (L4) 2- Poor- Plantarflexion (S1) 1 Trace PT-OP-Q Treatments Start: 11/15/23 16:26 Freq: Status: Active Protocol: Document 04/05/24 13:45 DCW (Rec: 04/05/24 14:28 DC [id number]) Gym Equipment Shuttle Recovery Unilateral Squats Resistance 50# (2 navy) Shuttle Recovery Platform Stable Reps/Time x30 Bilateral Squats Resistance 100# (4 navy) Shuttle Recovery Platform Stable Reps/Time x50 Therapeutic Exercises Sitting Exercises HS curl Side bilateral Resistance Lv 3 Reps/Minutes x30 reps each chest press Sitting Exercise Name Chest press /c PVC Side bilateral Resistance 5# LAQ Side bilateral Resistance 5# aw Reps/Minutes x30 reps alternating Comments reports painfree, cued alternating allow opp LE brief rest. Horizontal Abduction Sitting Exercise Name Trunk rotation: UE Horizontal Abd/adduction in 90 deg flexion/abduction Side bilateral Resistance Yellow ball 2.2# R, Red ball 3 .3# L Comments cued for decreased UT tension Ball Lift Sitting Exercise Name Ball from opposite hip to overhead Side bilateral Resistance Yellow ball 2.2# R, Red ball 3 .3# L Standing Exercises Hip Extension Standing Exercise Name Hip Extension Side bilateral Resistance Lv 2 loop Equipment Used //bars Other Exercises Resisted Ambulation Other Exercise Name Resisted side-stepping Side bilateral Resistance Lv 2 loop Equipment Used bars Matty Reps/Minutes 10 x2ft rail Comments LUE automated BP: 134/86 HR 71 Gait Training Gait Activity FWW Device Used FWW Level of Assistance SBA Distance/Duration 124' Treatment Focus foot clearance & stride, proximal to FWW UE support needed PT-OP-T Assessment and Plan Start: 11/15/23 16:26 Freq: Status: Active Protocol: Document 04/05/24 13:45 DCW (Rec: 04/05/24 14:28 [facility] [id number]) Physical Therapy Assessment Impairments Impairments Activity Tolerance,Balance, Coordination,Functional Activities,Functional Mobility ,Gait,Posture,ROM,Soft Tissue Mobility,Strength,Tone, Transfers Goals One Impairment Pt does not have an appropriate home exercise program Short Term Goal (STG) Pt to be independent and compliant with an appropriate HEP STG Duration 03/14/24 Three Impairment Pt ambulates 103' over the course of a two minute walk test Maintenance Mechanic Telephone Goal (LTG) Pt to ambulate >600' using a FWW during a 6MWT in order to demonstrate decreasing burden of care and improved ability to perform ADLs independently. LTG Duration 05/13/24 - Improving Two Impairment TUG score of 62.02 /c FWW indicates increased risk of falls Senior Care Goal (LTG) Pt to improve TUG score using his FWW by at least 22 seconds to 40 in order to demonstrate improved gait ability and greater activity tolerance LTG Duration 05/13/24 - Improving Assessment Summary Assessment Pt overall improved compared to past few weeks, able to fully participate in activities today. Continue to focus on LE strength, activity tolerance, gait, and balance. Physical Therapy Plan Frequency and Duration Frequency of Treatment 2x/Week Plan of Care Start Date 02/13/24 Plan of Care End Date 05/13/24 Therapeutic Interventions Therapeutic Interventions Balance Training,Coordination Training,Gait Training,Home Exercise Program,Manual Therapy,Neuromuscular Re- education,Patient/Caregiver Education,Self-Care/Home Management,Soft Tissue Mobilization,Therapeutic Activities,Therapeutic Exercises,Wheelchair Management Next Visit Focus/Plan Next Note Type Treatment Note Next Visit Plan Continue BP check due to increase BP med. POC: Continue resisted LE and UE activities alternating, increase standing activity endurance, including hurdles. POC: LE/UE/core strengthening, gait and stair training, balance challenges, increasing activity tolerance
--- NOTE | 2024-04-09 14:28 | PT.OTN ---
Current Diagnoses Other symptoms and signs involving the musculoskeletal system (04/09/24) Weakness (04/09/24) Other malaise (04/09/24) Physical Therapy Treatment Note PT-OP-A Visit Information Start: 11/15/23 16:26 Freq: Status: Active Protocol: Document 04/09/24 13:48 SP (Rec: 04/09/24 14:53 SP [id number]) Out-Patient Physical Therapy Visit Information Visit Information Visit Type Treatment Note Visit Start Time 13:48 Visit Stop Time 14:28 Visit Number 31 (2/10 with PN) Number of SHIP LOADER Visits 1 Evaluation Information Evaluation Date 11/15/23 PT-OP-B Current Condition Start: 11/15/23 16:26 Freq: Status: Active Protocol: Document 11/15/23 13:45 DCW (Rec: 11/16/23 10:20 DCW [id number]) Current Condition History of Current Condition Onset Date February 2021 Current Complaints Weakness, decreased activity tolerance, poor balance, physical debility History of Current Condition Pt is a 73 year old male presenting with a multi-year, highly complex medical history . Pt is well known to this clinic, and has been treated at this facility for the same symptoms multiple times over the past three years. Health complications initially began February 2021 with a severe bacterial infection, resulting in a months-long hospitalization requiring time on a ventilator, and then spent time at a rehab facility , not returning home until October 2021. Pt at that time wheelchair bound, severe weakness in lower extremities, particularly his ankles. Pt has experienced other health complications in the past two years, mainly involving cardiac issues, including an [place] and pacemaker placement, which both interrupted his rehabilitation from his illness. Pt was most recently treated at this facility earlier this year, was discharged 06/06/23 due to planned heart surgery. Pt has since had clips placed on his mitral and tricuspid valves/ Overall, pt continues to mobilize mainly in his w/c, however is spending time walking in his home with a FWW , and has been more independent with transfers. Pt previously wwas using full AFOs due to bilateral drop foot, however has switched to a softer ankler brace which clips to his shoe to limit drop foot, which offers less stability but makes standing from his w/c much easier due to allowing more ankle mobility and better LE positioning. Has recently been getting treatment for a UTI, although recently had to stop the antibiotics due to GI issues. Continues to exhibit general deconditioning, bilateral ankle weakness, decreased activity tolerance, poor balance, and increased dependence for IADLs/ADLs. Treatment Goals Patient/Caregiver Goals Pt's goals are to be able to ascend/descend stairs and to start to walk using a cane instead of a FWW. PT-OP-C Subjective Start: 11/15/23 16:26 Freq: Status: Active Protocol: Document 04/09/24 13:48 SP (Rec: 04/09/24 14:53 SP [id number]) OP-PT Subjective Patient Comments Patient Comments Pt upset SHIP LOADER 3 min late and scheduling staff not up front when arrived for appt due to staff mtg and late being checked in. BP was 120/80 am when woke up. But yesterday was 80/40 after up for while and after a shower. Will be 6 weeks before get custom walk in shower. Pt reports wants to be able to drive again first using feet and if not doing well will put in hand controls . PT-OP-E Functional Tests Start: 11/15/23 16:26 Freq: Status: Active Protocol: Document 04/05/24 13:45 DCW (Rec: 04/05/24 14:28 DCW [id number]) Functional Tests 2 Minute Walk Test Device Used FWW Comments 1.03 ft/sec PT-OP-G Mobility & Gait Start: 11/15/23 16:26 Freq: Status: Active Protocol: Document 02/13/24 14:30 DCW (Rec: 02/13/24 14:48 DCW [id number]) OP Gait Assessment Comments Gait Comments Pt ambulates with heavy use of UEs on FWW, ankle braces due to foot drop. Poor foot clearance, forward trunk flexion during gait. PT-OP-M Strength Start: 11/15/23 16:26 Freq: Status: Active Protocol: Document 11/15/23 13:45 DCW (Rec: 11/15/23 16:33 DCW [id number]) Hip Strength Hip Manual Muscle Testing Right Flexion (L2) 4 Good Abduction 4+ Good+ Adduction 4+ Good+ External Rotation 4 Good Internal Rotation 4 Good Left Flexion (L2) 4 Good Abduction 4+ Good+ Adduction 4+ Good+ External Rotation 4- Good- Internal Rotation 4 Good Knee Strength Knee Manual Muscle Testing Right Flexion (S2) 4- Good- Extension (L3) 4+ Good+ Left Flexion (S2) 4 Good Extension (L3) 4+ Good+ Ankle/Foot Strength Ankle and Foot Manual Muscle Testing Right Dorsiflexion (L4) 2 Poor Plantarflexion (S1) 2- Poor- Left Dorsiflexion (L4) 2- Poor- Plantarflexion (S1) 1 Trace PT-OP-Q Treatments Start: 11/15/23 16:26 Freq: Status: Active Protocol: Document 04/09/24 13:48 SP (Rec: 04/09/24 14:53 SP [id number]) Gym Equipment Shuttle Recovery Unilateral Squats Details SHIP LOADER assist LLE midline alignment Resistance 50# (2 navy) Shuttle Recovery Platform Stable Reps/Time x30 Bilateral Squats Resistance 100# (4 navy) Shuttle Recovery Platform Stable Reps/Time x50 Therapeutic Exercises Sitting Exercises LAQ Side bilateral Resistance TB #2 Reps/Minutes x30 reps alternating Comments reports painfree, cued alternating allow opp LE brief rest. Other Exercises Resisted Ambulation Other Exercise Name Resisted side-stepping Side bilateral Resistance Lv 2 loop Equipment Used 1 HR, 1 QC Reps/Minutes 15 ft Comments cued LLE clearance going L Neuro Re-Education Treatment Balance Activities Hurdles Details Hurdles - fwd & lateral Equipment AROM, 1 HR 1 QC Reps/Duration 15 ft 1 lap Comments step to lead same LE PT-OP-T Assessment and Plan Start: 11/15/23 16:26 Freq: Status: Active Protocol: Document 04/09/24 13:48 SP (Rec: 04/09/24 14:53 SP [id number]) Physical Therapy Assessment Goals One Impairment Pt does not have an appropriate home exercise program Short Term Goal (STG) Pt to be independent and compliant with an appropriate HEP STG Duration 03/14/24 Three Impairment Pt ambulates 103' over the course of a two minute walk test Impairment . Centrifuge Operator Goal (LTG) Pt to ambulate >600' using a FWW during a 6MWT in order to demonstrate decreasing burden of care and improved ability to perform ADLs independently. LTG Duration 05/13/24 - Improving Two Impairment TUG score of 62.02 /c FWW indicates increased risk of falls Impairment . Centrifuge Operator Goal (LTG) Pt to improve TUG score using his FWW by at least 22 seconds to 40 in order to demonstrate improved gait ability and greater activity tolerance LTG Duration 05/13/24 - Improving Assessment Summary Assessment Pt was able to progress natalio stepping with decreased stable support with 1 UE on QC vs //bars today. He is able to progress return to strength in standing gait using LRAD Matty SBQC today approx 15 ft and 5 ft and complete resisted side stepping this tx. CUes for LLE foot clearance going left. Physical Therapy Plan Frequency and Duration Frequency of Treatment 2x/Week Plan of Care Start Date 02/13/24 Plan of Care End Date 05/13/24 Therapeutic Interventions Therapeutic Interventions Balance Training,Coordination Training,Gait Training,Home Exercise Program,Manual Therapy,Neuromuscular Re- education,Patient/Caregiver Education,Self-Care/Home Management,Soft Tissue Mobilization,Therapeutic Activities,Therapeutic Exercises,Wheelchair Management Next Visit Focus/Plan Next Note Type Treatment Note Next Visit Plan Continue BP check due to increase BP med. POC: Continue resisted LE and UE activities alternating, increase standing activity endurance, including hurdles. POC: LE/UE/core strengthening, gait and stair training, balance challenges, increasing activity tolerance
--- NOTE | 2024-04-11 14:34 | PT.OTN ---
Current Diagnoses Other symptoms and signs involving the musculoskeletal system (04/11/24) Weakness (04/11/24) Other malaise (04/11/24) Physical Therapy Treatment Note PT-OP-A Visit Information Start: 11/15/23 16:26 Freq: Status: Active Protocol: Document 04/11/24 13:48 SP (Rec: 04/11/24 14:54 SP [id number]) Out-Patient Physical Therapy Visit Information Visit Information Visit Type Treatment Note Visit Start Time 13:48 Visit Stop Time 14:34 Visit Number 32 (3/10 with PN) Number of DRY CLEANER HAND Visits 2 Evaluation Information Evaluation Date 11/15/23 PT-OP-B Current Condition Start: 11/15/23 16:26 Freq: Status: Active Protocol: Document 11/15/23 13:45 DCW (Rec: 11/16/23 10:20 DCW [id number]) Current Condition History of Current Condition Onset Date February 2021 Current Complaints Weakness, decreased activity tolerance, poor balance, physical debility History of Current Condition Pt is a 73 year old male presenting with a multi-year, highly complex medical history . Pt is well known to this clinic, and has been treated at this facility for the same symptoms multiple times over the past three years. Health complications initially began February 2021 with a severe bacterial infection, resulting in a months-long hospitalization requiring time on a ventilator, and then spent time at a rehab facility , not returning home until October 2021. Pt at that time wheelchair bound, severe weakness in lower extremities, particularly his ankles. Pt has experienced other health complications in the past two years, mainly involving cardiac issues, including an NC and pacemaker placement, which both interrupted his rehabilitation from his illness. Pt was most recently treated at this facility earlier this year, was discharged 06/06/23 due to planned heart surgery. Pt has since had clips placed on his mitral and tricuspid valves/ Overall, pt continues to mobilize mainly in his w/c, however is spending time walking in his home with a FWW , and has been more independent with transfers. Pt previously wwas using full AFOs due to bilateral drop foot, however has switched to a softer ankler brace which clips to his shoe to limit drop foot, which offers less stability but makes standing from his w/c much easier due to allowing more ankle mobility and better LE positioning. Has recently been getting treatment for a UTI, although recently had to stop the antibiotics due to GI issues. Continues to exhibit general deconditioning, bilateral ankle weakness, decreased activity tolerance, poor balance, and increased dependence for IADLs/ADLs. Treatment Goals Patient/Caregiver Goals Pt's goals are to be able to ascend/descend stairs and to start to walk using a cane instead of a FWW. PT-OP-C Subjective Start: 11/15/23 16:26 Freq: Status: Active Protocol: Document 04/11/24 13:48 SP (Rec: 04/11/24 14:54 SP [id number]) OP-PT Subjective Patient Comments Patient Comments Pt reported starting to look into alternative avenues of activity with someone 1:1, inquiring . He reported with 4 instances of cardiac issues needing bed rest having to come back from, hasn't been as quickly this time. He reported hasn't felt confident of his BLEs strength to return to Matty at home yet. PT-OP-E Functional Tests Start: 11/15/23 16:26 Freq: Status: Active Protocol: Document 04/05/24 13:45 DCW (Rec: 04/05/24 14:28 DCW [id number]) Functional Tests 2 Minute Walk Test Device Used FWW Comments 1.03 ft/sec PT-OP-G Mobility & Gait Start: 11/15/23 16:26 Freq: Status: Active Protocol: Document 02/13/24 14:30 DCW (Rec: 02/13/24 14:48 DCW [id number]) OP Gait Assessment Comments Gait Comments Pt ambulates with heavy use of UEs on FWW, ankle braces due to foot drop. Poor foot clearance, forward trunk flexion during gait. PT-OP-M Strength Start: 11/15/23 16:26 Freq: Status: Active Protocol: Document 11/15/23 13:45 DCW (Rec: 11/15/23 16:33 DCW [id number]) Hip Strength Hip Manual Muscle Testing Right Flexion (L2) 4 Good Abduction 4+ Good+ Adduction 4+ Good+ External Rotation 4 Good Internal Rotation 4 Good Left Flexion (L2) 4 Good Abduction 4+ Good+ Adduction 4+ Good+ External Rotation 4- Good- Internal Rotation 4 Good Knee Strength Knee Manual Muscle Testing Right Flexion (S2) 4- Good- Extension (L3) 4+ Good+ Left Flexion (S2) 4 Good Extension (L3) 4+ Good+ Ankle/Foot Strength Ankle and Foot Manual Muscle Testing Right Dorsiflexion (L4) 2 Poor Plantarflexion (S1) 2- Poor- Left Dorsiflexion (L4) 2- Poor- Plantarflexion (S1) 1 Trace PT-OP-Q Treatments Start: 11/15/23 16:26 Freq: Status: Active Protocol: Document 04/11/24 13:48 SP (Rec: 04/11/24 14:54 SP [id number]) Gym Equipment Shuttle Recovery Unilateral Squats Details DRY CLEANER HAND assist LLE midline alignment Resistance 50# (2 navy) Shuttle Recovery Platform Stable Reps/Time x50 Bilateral Squats Resistance 100# (4 navy) Shuttle Recovery Platform Stable Reps/Time x50 Therapeutic Exercises Sitting Exercises marching Sitting Exercise Name core Side bilateral Equipment Used 5 # leg wt Reps/Minutes 20 alternating Comments sit edge w/c STS Sitting Exercise Name encouraged perform 5 reps 2-3 xday for strengthening. Equipment Used rail Reps/Minutes 5 reps Comments cues hip hinge, push from w/c stand and reach back slow descend FF Over head Sitting Exercise Name balloon volley Side bilateral Resistance 4# arm wts Reps/Minutes 2 min x2 Comments cued front w/c, improved trunk wt shift ouside GAYATHRI, limted RUE (deg FF) Gait Training Gait Activity Matty QC Device Used B SBQC Level of Assistance CGA via gait belt & wc follow by DRY CLEANER HAND Distance/Duration 66 ft, 42 ft Treatment Focus LE strength, endurance Comments Cued for upright posture, soft LE stepping advancement, pt tends to perform 4pt gait. Neuro Re-Education Treatment Balance Activities stand balance Details balloon volXenoport Equipment 1 UE on fww Reps/Duration 3 min Comments cued wt shift reach outside GAYATHRI, better cross body LUE vs RUE. PT-OP-T Assessment and Plan Start: 11/15/23 16:26 Freq: Status: Active Protocol: Document 04/11/24 13:48 SP (Rec: 04/11/24 14:54 SP [id number]) Physical Therapy Assessment Goals One Impairment Pt does not have an appropriate home exercise program Short Term Goal (STG) Pt to be independent and compliant with an appropriate HEP STG Duration 03/14/24 Three Impairment Pt ambulates 103' over the course of a two minute walk test Impairment . Detention Goal (LTG) Pt to ambulate >600' using a FWW during a 6MWT in order to demonstrate decreasing burden of care and improved ability to perform ADLs independently. LTG Duration 05/13/24 - Improving Two Impairment TUG score of 62.02 /c FWW indicates increased risk of falls Impairment . Search Engineer Goal (LTG) Pt to improve TUG score using his FWW by at least 22 seconds to 40 in order to demonstrate improved gait ability and greater activity tolerance LTG Duration 05/13/24 - Improving Assessment Summary Assessment Pt improved tolerance increased UE resisistance during core and UE strengthening independent UE balloon volley today, RUE more limited into FF and abd/ER. Progressed into standing endurance 1 UE support balloon volley, angled balloon outside GAYATHRI to encourage wt shift. Pt was able to progress gait further 2 distances today with Matty qc, w/c follow for safety, needed end distance due to LE tiring. Physical Therapy Plan Frequency and Duration Frequency of Treatment 2x/Week Plan of Care Start Date 02/13/24 Plan of Care End Date 05/13/24 Therapeutic Interventions Therapeutic Interventions Balance Training,Coordination Training,Gait Training,Home Exercise Program,Manual Therapy,Neuromuscular Re- education,Patient/Caregiver Education,Self-Care/Home Management,Soft Tissue Mobilization,Therapeutic Activities,Therapeutic Exercises,Wheelchair Management Next Visit Focus/Plan Next Note Type Treatment Note Next Visit Plan Continue BP check due to increase BP med. POC: Continue resisted LE and UE activities alternating, increase standing activity endurance, including hurdles. POC: LE/UE/core strengthening, gait and stair training, balance challenges, increasing activity tolerance
--- NOTE | 2024-04-16 14:31 | PT.OTN ---
Current Diagnoses Other symptoms and signs involving the musculoskeletal system (04/16/24) Weakness (04/16/24) Other malaise (04/16/24) Physical Therapy Treatment Note PT-OP-A Visit Information Start: 11/15/23 16:26 Freq: Status: Active Protocol: Document 04/16/24 13:45 DCW (Rec: 04/16/24 14:31 DCW [id number]) Out-Patient Physical Therapy Visit Information Visit Information Visit Type Treatment Note Visit Start Time 13:45 Visit Stop Time 14:30 Visit Number 33 (07/11) Number of BALANCE SHEET ANALYST Visits 0 Evaluation Information Evaluation Date 11/15/23 PT-OP-B Current Condition Start: 11/15/23 16:26 Freq: Status: Active Protocol: Document 11/15/23 13:45 DCW (Rec: 11/16/23 10:20 DCW [id number]) Current Condition History of Current Condition Onset Date February 2021 Current Complaints Weakness, decreased activity tolerance, poor balance, physical debility History of Current Condition Pt is a 73 year old male presenting with a multi-year, highly complex medical history . Pt is well known to this clinic, and has been treated at this facility for the same symptoms multiple times over the past three years. Health complications initially began February 2021 with a severe bacterial infection, resulting in a months-long hospitalization requiring time on a ventilator, and then spent time at a rehab facility , not returning home until October 2021. Pt at that time wheelchair bound, severe weakness in lower extremities, particularly his ankles. Pt has experienced other health complications in the past two years, mainly involving cardiac issues, including an [place] and pacemaker placement, which both interrupted his rehabilitation from his illness. Pt was most recently treated at this facility earlier this year, was discharged 06/06/23 due to planned heart surgery. Pt has since had clips placed on his mitral and tricuspid valves/ Overall, pt continues to mobilize mainly in his w/c, however is spending time walking in his home with a FWW , and has been more independent with transfers. Pt previously wwas using full AFOs due to bilateral drop foot, however has switched to a softer ankler brace which clips to his shoe to limit drop foot, which offers less stability but makes standing from his w/c much easier due to allowing more ankle mobility and better LE positioning. Has recently been getting treatment for a UTI, although recently had to stop the antibiotics due to GI issues. Continues to exhibit general deconditioning, bilateral ankle weakness, decreased activity tolerance, poor balance, and increased dependence for IADLs/ADLs. Treatment Goals Patient/Caregiver Goals Pt's goals are to be able to ascend/descend stairs and to start to walk using a cane instead of a FWW. PT-OP-C Subjective Start: 11/15/23 16:26 Freq: Status: Active Protocol: Document 04/16/24 13:45 DCW (Rec: 04/16/24 14:31 DCW [id number]) OP-PT Subjective Patient Comments Patient Comments Pt notes his legs are alright today. Patient Questionnaires Lower Extremity Functional Scale LEFS Score = 17.5% PT-OP-E Functional Tests Start: 11/15/23 16:26 Freq: Status: Active Protocol: Document 04/05/24 13:45 DCW (Rec: 04/05/24 14:28 DCW [id number]) Functional Tests 2 Minute Walk Test Device Used FWW Comments 1.03 ft/sec PT-OP-G Mobility & Gait Start: 11/15/23 16:26 Freq: Status: Active Protocol: Document 02/13/24 14:30 DCW (Rec: 02/13/24 14:48 DCW [id number]) OP Gait Assessment Comments Gait Comments Pt ambulates with heavy use of UEs on FWW, ankle braces due to foot drop. Poor foot clearance, forward trunk flexion during gait. PT-OP-M Strength Start: 11/15/23 16:26 Freq: Status: Active Protocol: Document 11/15/23 13:45 DCW (Rec: 11/15/23 16:33 DCW [id number]) Hip Strength Hip Manual Muscle Testing Right Flexion (L2) 4 Good Abduction 4+ Good+ Adduction 4+ Good+ External Rotation 4 Good Internal Rotation 4 Good Left Flexion (L2) 4 Good Abduction 4+ Good+ Adduction 4+ Good+ External Rotation 4- Good- Internal Rotation 4 Good Knee Strength Knee Manual Muscle Testing Right Flexion (S2) 4- Good- Extension (L3) 4+ Good+ Left Flexion (S2) 4 Good Extension (L3) 4+ Good+ Ankle/Foot Strength Ankle and Foot Manual Muscle Testing Right Dorsiflexion (L4) 2 Poor Plantarflexion (S1) 2- Poor- Left Dorsiflexion (L4) 2- Poor- Plantarflexion (S1) 1 Trace PT-OP-Q Treatments Start: 11/15/23 16:26 Freq: Status: Active Protocol: Document 04/16/24 13:45 DCW (Rec: 04/16/24 14:31 DCW [id number]) Gym Equipment Shuttle Recovery Unilateral Squats Resistance 50# (2 navy) Shuttle Recovery Platform Stable Reps/Time x50 Bilateral Squats Resistance 100# (4 navy) Shuttle Recovery Platform Stable Reps/Time x50 Gait Training Gait Activity Steps Description 4 stairs Device Used B Rails Level of Assistance CGA Distance/Duration 5 steps x13 Comments Ascend: Fwd step-to Descend: Retro step-to Cues for more upright posture PT-OP-T Assessment and Plan Start: 11/15/23 16:26 Freq: Status: Active Protocol: Document 04/16/24 13:45 DCW (Rec: 04/16/24 14:31 DCW [id number]) Physical Therapy Assessment Impairments Impairments Activity Tolerance,Balance, Coordination,Functional Activities,Functional Mobility ,Gait,Posture,ROM,Soft Tissue Mobility,Strength,Tone, Transfers Goals One Impairment Pt does not have an appropriate home exercise program Short Term Goal (STG) Pt to be independent and compliant with an appropriate HEP STG Duration 03/14/24 Three Impairment Pt ambulates 103' over the course of a two minute walk test Impairment . Custodial Goal (LTG) Pt to ambulate >600' using a FWW during a 6MWT in order to demonstrate decreasing burden of care and improved ability to perform ADLs independently. LTG Duration 05/13/24 - Improving Two Impairment TUG score of 62.02 /c FWW indicates increased risk of falls Impairment . Mold Maintenance Technician Goal (LTG) Pt to improve TUG score using his FWW by at least 22 seconds to 40 in order to demonstrate improved gait ability and greater activity tolerance LTG Duration 05/13/24 - Improving Assessment Summary Assessment Pt a little more energetic today, did very well on stairs , able to significantly decrease UE use when ascending /descending. Physical Therapy Plan Frequency and Duration Frequency of Treatment 2x/Week Plan of Care Start Date 02/13/24 Plan of Care End Date 05/13/24 Therapeutic Interventions Therapeutic Interventions Balance Training,Coordination Training,Gait Training,Home Exercise Program,Manual Therapy,Neuromuscular Re- education,Patient/Caregiver Education,Self-Care/Home Management,Soft Tissue Mobilization,Therapeutic Activities,Therapeutic Exercises,Wheelchair Management Next Visit Focus/Plan Next Note Type Treatment Note Next Visit Plan Continue BP check due to increase BP med. POC: Continue resisted LE and UE activities alternating, increase standing activity endurance, including hurdles. POC: LE/UE/core strengthening, gait and stair training, balance challenges, increasing activity tolerance
--- NOTE | 2024-04-24 15:14 | PT.OTN ---
Current Diagnoses Other symptoms and signs involving the musculoskeletal system (04/24/24) Weakness (04/24/24) Other malaise (04/24/24) Physical Therapy Treatment Note PT-OP-A Visit Information Start: 11/15/23 16:26 Freq: Status: Active Protocol: Document 04/24/24 14:30 DCW (Rec: 04/24/24 15:14 DCW [id number]) Out-Patient Physical Therapy Visit Information Visit Information Visit Type Treatment Note Visit Start Time 14:30 Visit Stop Time 15:15 Visit Number 34 Number of NETWORK PLANNER Visits 0 Evaluation Information Evaluation Date 11/15/23 PT-OP-B Current Condition Start: 11/15/23 16:26 Freq: Status: Active Protocol: Document 11/15/23 13:45 DCW (Rec: 11/16/23 10:20 DCW [id number]) Current Condition History of Current Condition Onset Date February 2021 Current Complaints Weakness, decreased activity tolerance, poor balance, physical debility History of Current Condition Pt is a 73 year old male presenting with a multi-year, highly complex medical history . Pt is well known to this clinic, and has been treated at this facility for the same symptoms multiple times over the past three years. Health complications initially began February 2021 with a severe bacterial infection, resulting in a months-long hospitalization requiring time on a ventilator, and then spent time at a rehab facility , not returning home until October 2021. Pt at that time wheelchair bound, severe weakness in lower extremities, particularly his ankles. Pt has experienced other health complications in the past two years, mainly involving cardiac issues, including an [place] and pacemaker placement, which both interrupted his rehabilitation from his illness. Pt was most recently treated at this facility earlier this year, was discharged 06/06/23 due to planned heart surgery. Pt has since had clips placed on his mitral and tricuspid valves/ Overall, pt continues to mobilize mainly in his w/c, however is spending time walking in his home with a FWW , and has been more independent with transfers. Pt previously wwas using full AFOs due to bilateral drop foot, however has switched to a softer ankler brace which clips to his shoe to limit drop foot, which offers less stability but makes standing from his w/c much easier due to allowing more ankle mobility and better LE positioning. Has recently been getting treatment for a UTI, although recently had to stop the antibiotics due to GI issues. Continues to exhibit general deconditioning, bilateral ankle weakness, decreased activity tolerance, poor balance, and increased dependence for IADLs/ADLs. Treatment Goals Patient/Caregiver Goals Pt's goals are to be able to ascend/descend stairs and to start to walk using a cane instead of a FWW. PT-OP-C Subjective Start: 11/15/23 16:26 Freq: Status: Active Protocol: Document 04/24/24 14:30 DCW (Rec: 04/24/24 15:14 DCW [id number]) OP-PT Subjective Patient Comments Patient Comments Three remaining appointments authorized, will likely discharge following PT-OP-E Functional Tests Start: 11/15/23 16:26 Freq: Status: Active Protocol: Document 04/05/24 13:45 DCW (Rec: 04/05/24 14:28 DCW [id number]) Functional Tests 2 Minute Walk Test Device Used FWW Comments 1.03 ft/sec PT-OP-G Mobility & Gait Start: 11/15/23 16:26 Freq: Status: Active Protocol: Document 02/13/24 14:30 DCW (Rec: 02/13/24 14:48 DCW [id number]) OP Gait Assessment Comments Gait Comments Pt ambulates with heavy use of UEs on FWW, ankle braces due to foot drop. Poor foot clearance, forward trunk flexion during gait. PT-OP-M Strength Start: 11/15/23 16:26 Freq: Status: Active Protocol: Document 11/15/23 13:45 DCW (Rec: 11/15/23 16:33 DCW [id number]) Hip Strength Hip Manual Muscle Testing Right Flexion (L2) 4 Good Abduction 4+ Good+ Adduction 4+ Good+ External Rotation 4 Good Internal Rotation 4 Good Left Flexion (L2) 4 Good Abduction 4+ Good+ Adduction 4+ Good+ External Rotation 4- Good- Internal Rotation 4 Good Knee Strength Knee Manual Muscle Testing Right Flexion (S2) 4- Good- Extension (L3) 4+ Good+ Left Flexion (S2) 4 Good Extension (L3) 4+ Good+ Ankle/Foot Strength Ankle and Foot Manual Muscle Testing Right Dorsiflexion (L4) 2 Poor Plantarflexion (S1) 2- Poor- Left Dorsiflexion (L4) 2- Poor- Plantarflexion (S1) 1 Trace PT-OP-Q Treatments Start: 11/15/23 16:26 Freq: Status: Active Protocol: Document 04/24/24 14:30 DCW (Rec: 04/24/24 15:14 DCW [id number]) Therapeutic Exercises Sitting Exercises Biceps Curl Sitting Exercise Name Biceps curl, reverse curl /c PVC Side bilateral Resistance 10# Rows Side bilateral Resistance Lv 3 Reps/Minutes x20 Comments cued sit front seat, upright posture chest press Sitting Exercise Name Chest press /c PVC Side bilateral Resistance 5# FF Over head Sitting Exercise Name balloon volley Side bilateral Resistance 5# arm wts Comments seated in w/c Ball Lift Sitting Exercise Name Ball from opposite hip to overhead Side bilateral Resistance Yellow ball 2.2# R, Green ball 4.4# L PT-OP-T Assessment and Plan Start: 11/15/23 16:26 Freq: Status: Active Protocol: Document 04/24/24 14:30 DCW (Rec: 04/24/24 15:14 DCW [id number]) Physical Therapy Assessment Impairments Impairments Activity Tolerance,Balance, Coordination,Functional Activities,Functional Mobility ,Gait,Posture,ROM,Soft Tissue Mobility,Strength,Tone, Transfers Goals One Impairment Pt does not have an appropriate home exercise program Short Term Goal (STG) Pt to be independent and compliant with an appropriate HEP STG Duration 03/14/24 Three Impairment Pt ambulates 103' over the course of a two minute walk test Impairment . Guest Room Attendant Goal (LTG) Pt to ambulate >600' using a FWW during a 6MWT in order to demonstrate decreasing burden of care and improved ability to perform ADLs independently. LTG Duration 05/13/24 - Improving Two Impairment TUG score of 62.02 /c FWW indicates increased risk of falls Impairment . Guest Room Attendant Goal (LTG) Pt to improve TUG score using his FWW by at least 22 seconds to 40 in order to demonstrate improved gait ability and greater activity tolerance LTG Duration 05/13/24 - Improving Assessment Summary Assessment Focused today on more seated UE strengthening due to continuing GI issues causing pt feeling less optimistic about anything that will make him strain too much. Physical Therapy Plan Frequency and Duration Frequency of Treatment 2x/Week Plan of Care Start Date 02/13/24 Plan of Care End Date 05/13/24 Therapeutic Interventions Therapeutic Interventions Balance Training,Coordination Training,Gait Training,Home Exercise Program,Manual Therapy,Neuromuscular Re- education,Patient/Caregiver Education,Self-Care/Home Management,Soft Tissue Mobilization,Therapeutic Activities,Therapeutic Exercises,Wheelchair Management Next Visit Focus/Plan Next Note Type Treatment Note Next Visit Plan Continue BP check due to increase BP med. POC: Continue resisted LE and UE activities alternating, increase standing activity endurance, including hurdles. POC: LE/UE/core strengthening, gait and stair training, balance challenges, increasing activity tolerance
--- NOTE | 2024-05-02 13:54 | PT-OP ANOTE ---
Pt cancelled sick.
--- NOTE | 2024-05-07 14:32 | PT.OTN ---
Current Diagnoses Other symptoms and signs involving the musculoskeletal system (05/07/24) Weakness (05/07/24) Other malaise (05/07/24) Physical Therapy Treatment Note PT-OP-A Visit Information Start: 11/15/23 16:26 Freq: Status: Active Protocol: Document 05/07/24 13:45 DCW (Rec: 05/07/24 14:31 DCW [id number]) Out-Patient Physical Therapy Visit Information Visit Information Visit Type Discharge Summary Visit Start Time 13:45 Visit Stop Time 14:30 Visit Number 35 Number of SOLAR SALES ESTIMATOR Visits 0 Evaluation Information Evaluation Date 11/15/23 PT-OP-B Current Condition Start: 11/15/23 16:26 Freq: Status: Active Protocol: Document 11/15/23 13:45 DCW (Rec: 11/16/23 10:20 DCW [id number]) Current Condition History of Current Condition Onset Date February 2021 Current Complaints Weakness, decreased activity tolerance, poor balance, physical debility History of Current Condition Pt is a 73 year old male presenting with a multi-year, highly complex medical history . Pt is well known to this clinic, and has been treated at this facility for the same symptoms multiple times over the past three years. Health complications initially began February 2021 with a severe bacterial infection, resulting in a months-long hospitalization requiring time on a ventilator, and then spent time at a rehab facility , not returning home until October 2021. Pt at that time wheelchair bound, severe weakness in lower extremities, particularly his ankles. Pt has experienced other health complications in the past two years, mainly involving cardiac issues, including an CA and pacemaker placement, which both interrupted his rehabilitation from his illness. Pt was most recently treated at this facility earlier this year, was discharged 06/06/23 due to planned heart surgery. Pt has since had clips placed on his mitral and tricuspid valves/ Overall, pt continues to mobilize mainly in his w/c, however is spending time walking in his home with a FWW , and has been more independent with transfers. Pt previously wwas using full AFOs due to bilateral drop foot, however has switched to a softer ankler brace which clips to his shoe to limit drop foot, which offers less stability but makes standing from his w/c much easier due to allowing more ankle mobility and better LE positioning. Has recently been getting treatment for a UTI, although recently had to stop the antibiotics due to GI issues. Continues to exhibit general deconditioning, bilateral ankle weakness, decreased activity tolerance, poor balance, and increased dependence for IADLs/ADLs. Treatment Goals Patient/Caregiver Goals Pt's goals are to be able to ascend/descend stairs and to start to walk using a cane instead of a FWW. PT-OP-C Subjective Start: 11/15/23 16:26 Freq: Status: Active Protocol: Document 05/07/24 13:45 DCW (Rec: 05/07/24 14:31 DCW [id number]) OP-PT Subjective Patient Comments Patient Comments Pt canceled two appointments last week d/t GI issues. Today last scheduled visit. Pt agreeable to discharge due to insurance denial. PT-OP-E Functional Tests Start: 11/15/23 16:26 Freq: Status: Active Protocol: Document 05/07/24 14:31 DCW (Rec: 05/07/24 14:32 DCW [id number]) Functional Tests 6 Minute Walk Test Distance 131' Device Used FWW Comments Stopped at 2:45 Timed Up and Go (TUG) Score 49.85 /c FWW TUG Impairment Rating 100% Impaired (Score 20) PT-OP-G Mobility & Gait Start: 11/15/23 16:26 Freq: Status: Active Protocol: Document 02/13/24 14:30 DCW (Rec: 02/13/24 14:48 DCW [id number]) OP Gait Assessment Comments Gait Comments Pt ambulates with heavy use of UEs on FWW, ankle braces due to foot drop. Poor foot clearance, forward trunk flexion during gait. PT-OP-M Strength Start: 11/15/23 16:26 Freq: Status: Active Protocol: Document 11/15/23 13:45 DCW (Rec: 11/15/23 16:33 DCW [id number]) Hip Strength Hip Manual Muscle Testing Right Flexion (L2) 4 Good Abduction 4+ Good+ Adduction 4+ Good+ External Rotation 4 Good Internal Rotation 4 Good Left Flexion (L2) 4 Good Abduction 4+ Good+ Adduction 4+ Good+ External Rotation 4- Good- Internal Rotation 4 Good Knee Strength Knee Manual Muscle Testing Right Flexion (S2) 4- Good- Extension (L3) 4+ Good+ Left Flexion (S2) 4 Good Extension (L3) 4+ Good+ Ankle/Foot Strength Ankle and Foot Manual Muscle Testing Right Dorsiflexion (L4) 2 Poor Plantarflexion (S1) 2- Poor- Left Dorsiflexion (L4) 2- Poor- Plantarflexion (S1) 1 Trace PT-OP-Q Treatments Start: 11/15/23 16:26 Freq: Status: Active Protocol: Document 05/07/24 13:45 DCW (Rec: 05/07/24 14:31 DCW [id number]) Gym Equipment Shuttle Recovery Unilateral Squats Resistance 50# (2 navy) Shuttle Recovery Platform Stable Reps/Time x40 Bilateral Squats Resistance 100# (4 navy) Shuttle Recovery Platform Stable Reps/Time x50 Therapeutic Exercises Sitting Exercises Biceps Curl Sitting Exercise Name Biceps curl, reverse curl /c PVC Side bilateral Resistance 10# Rows Sitting Exercise Name Rows Side bilateral Resistance Lv 3 Reps/Minutes x30 Horizontal Abduction Sitting Exercise Name Trunk rotation: UE Horizontal Abd/adduction in 90 deg flexion/abduction Side bilateral Resistance Yellow ball 2.2# Comments cued for decreased UT tension Ball Lift Sitting Exercise Name Ball from opposite hip to overhead Side bilateral Resistance Yellow ball 2.2# R, Green ball 4.4# L PT-OP-T Assessment and Plan Start: 11/15/23 16:26 Freq: Status: Active Protocol: Document 05/07/24 13:45 DCW (Rec: 05/07/24 14:31 DCW [id number]) Physical Therapy Assessment Impairments Impairments Activity Tolerance,Balance, Coordination,Functional Activities,Functional Mobility ,Gait,Posture,ROM,Soft Tissue Mobility,Strength,Tone, Transfers Goals One Impairment Pt does not have an appropriate home exercise program Short Term Goal (STG) Pt to be independent and compliant with an appropriate HEP STG Duration 03/14/24 Three Impairment Pt ambulates 103' over the course of a two minute walk test Impairment . Heavy Equipment Technician Goal (LTG) Pt to ambulate >600' using a FWW during a 6MWT in order to demonstrate decreasing burden of care and improved ability to perform ADLs independently. 05/07/24: 131' in 2:45 /c FWW LTG Duration 05/13/24 - Improving Two Impairment TUG score of 62.02 /c FWW indicates increased risk of falls Impairment . Heavy Equipment Technician Goal (LTG) Pt to improve TUG score using his FWW by at least 22 seconds to 40 in order to demonstrate improved gait ability and greater activity tolerance 05/07/24: 49.85 LTG Duration 05/13/24 - Improving Assessment Summary Assessment Pt discharging to home program with caregivers. Pt notes understanding HEP and goals for treatment. Planning to look into attending classes in the pool. Has made mild progress since initial evaluation, although still fairly limited with activity tolerance, gait, and LE strength. Physical Therapy Plan Frequency and Duration Frequency of Treatment 2x/Week Plan of Care Start Date 02/13/24 Plan of Care End Date 05/13/24 Therapeutic Interventions Therapeutic Interventions Balance Training,Coordination Training,Gait Training,Home Exercise Program,Manual Therapy,Neuromuscular Re- education,Patient/Caregiver Education,Self-Care/Home Management,Soft Tissue Mobilization,Therapeutic Activities,Therapeutic Exercises,Wheelchair Management Discharge Physical Therapy Discharge Reasons No Longer Attending PT Next Visit Focus/Plan Next Note Type Discharge Summary
== END 2024-05-08 09:59 | disposition home or self-care (01) ==
LOC: PHYS 13:45
PROVIDERS: Family Provider Family Medicine; PCP Family Medicine; Referring Provider Family Medicine; Visit Provider Family Medicine
DX: R53.1 Weakness (principal); R29.898 Other symptoms and signs involving the musculoskeletal system; R53.81 Other malaise
CPT/HCPCS: 97110; 97112; 97116; 97163; 97530

== ENCOUNTER → 2024-05-15 09:41 | Outpatient (CLI) | payer MEDICARE, SELFPAY ==
[2024-01-24 13:04] VITALS: PULSE 64; RESP 22; O2SAT 98; BMI 40.0
--- NOTE | 2024-05-15 09:42 | DI.RAD.S_ITS ---
PROCEDURE: XR KNEE LT 3V INDICATIONS: heard loud popping sound pain in left knee TECHNIQUE: 3 views of the knee were acquired. COMPARISON: None. FINDINGS: Bones: No fractures or dislocations. Tricompartmental osteoarthritic change consists of severe medial and moderate to severe lateral tibiofemoral compartment narrowing with osteophytosis. There is moderate patellofemoral compartment narrowing with associated osteophytosis. No suspicious bony lesions. There is moderate resultant varus deformity. Soft tissues: No joint effusion. No suspicious soft tissue calcifications. IMPRESSION: KG grade 4 tricompartmental osteoarthritis without evidence of acute osseous abnormality. Dictated by: Nelson Tyler M.D. on 05/15/2024 at 14:12 Approved by: Nelson Tyler M.D. on 05/15/2024 at 14:13
== END ==
PROVIDERS: Family Provider Family Medicine; PCP Family Medicine; Referring Provider Family Medicine; Visit Provider Family Medicine
DX: M17.12 Unilateral primary osteoarthritis, left knee (principal); M25.562 Pain in left knee
CPT/HCPCS: 73562

== ENCOUNTER → 2024-05-23 15:29 | Outpatient (CLI) | payer MEDICARE, SELFPAY ==
[2024-01-24 13:04] VITALS: PULSE 64; RESP 22; O2SAT 98; BMI 40.0
[2024-05-23 16:34] LABS: BUN Creatinine Ratio 21.8 (6-22); Blood Urea Nitrogen 26 mg/dL (9-20); Calcium 9.5 mg/dL (8.4-10.2); Carbon Dioxide 28 mmol/L (22-32); Chloride 103 mmol/L (98-107); Estimated Glomerular Filt Rate > 60 mL/min (>60); Glucose 82 mg/dL (80-110); HEMOLYSIS < 15 (0-50); Potassium 4.6 mmol/L (3.4-5.1); Sodium 137 mmol/L (137-145)
== END ==
PROVIDERS: Family Provider Family Medicine; PCP Family Medicine; Referring Provider Urology; Visit Provider Urology
DX: R79.89 Other specified abnormal findings of blood chemistry (principal)
CPT/HCPCS: 36415; 80048

== ENCOUNTER 2024-07-03 10:17 | Emergency (ER) | payer MEDICARE, SELFPAY ==
[2024-01-24 13:04] VITALS: PULSE 64; RESP 22; O2SAT 98; BMI 40.0
[2024-07-03] VITALS (14 sets, daily range): BP systolic 103–126; BP diastolic 56–69; PULSE 66–73; RESP 15–18; TEMP 36.9; O2SAT 86–97; BMI 40.4
--- NOTE | 2024-07-03 10:42 | ED_ITS ---
HPI - Fall General Chief Complaint: Fall Stated Complaint: GLF Time Seen by Provider: 07/03/24 10:37 Mode of arrival: EMS History of Present Illness HPI Narrative: Patient is a 74-year-old male history of morbid obesity congestive heart failure with pacemaker neuropathy presenting to day with mechanical fall and right knee pain. He has a walk-in bathtub apparently he tripped getting out of it his foot got stuck and knee flexed. He did not hit his head or lose consciousness he is on Eliquis for atrial fibrillation. Denies any hip pain rib pain ankle pain. But unable to bear weight due to severe right knee pain Related Data Home Medications Medication Instructions Recorded Confirmed multivitamin with minerals-folic 1 tab PO DAILY 02/17/22 05/23/24 acid 0.4 mg tablet epinephrine 0.3 mg/0.3 mL 0.3 mg IM ONCE 09/11/23 05/23/24 injection, auto-injector lactobacillus combination no.9 4 4,000 mmu cells PO DAILY 09/11/23 05/23/24 billion cell capsule (Adult 50 Plus Probiotic) melatonin 10 mg capsule 10 mg PO BEDTIME PRN 09/11/23 05/23/24 metoprolol succinate 25 mg mg PO DAILY 05/09/24 05/23/24 tablet,extended release 24 hr Previous Rx's Medication Instructions Recorded apixaban 5 mg tablet (Eliquis) See Rx Instructions .Route 04/27/23 .COMPLEX #180 tabs gabapentin 300 mg capsule See Rx Instructions .Route 09/18/23 .COMPLEX #270 caps Disabled Parking See Rx Instructions .Route 10/10/23 .COMPLEX #365 days sacubitril 24 mg-valsartan 26 mg 1 tab PO BID #180 tabs 12/04/23 tablet (Entresto) spironolactone 25 mg tablet 12.5 mg (1/2 x 25 mg) PO DAILY PRN 02/14/24 chf #30 tabs cyclobenzaprine 5 mg tablet 5 mg PO TID PRN muscle spasm #60 03/22/24 tabs tamsulosin 0.4 mg capsule 0.8 mg (2 x 0.4 mg) PO DAILY #180 04/19/24 caps pantoprazole 40 mg tablet,delayed 40 mg PO DAILY #90 tabs 04/23/24 release hydrocodone 5 mg-acetaminophen 325 1 tab PO Q4-6H PRN pain #15 tabs 05/16/24 mg tablet Electric wheelchair #1 ea 05/22/24 oxycodone 5 mg tablet 5 mg PO Q6H PRN pain #14 tabs 07/03/24 Allergies Allergy/AdvReac Type Severity Reaction Status Date / Time latex [LATEX] Allergy Intermediate Rash Verified 07/03/24 10:26 nitrofurantoin AdvReac Severe Diarrhea Verified 07/03/24 10:26 MULTIPLE FOOD ALLERGIES Allergy Intermediate STOMACH Uncoded 05/23/24 15:06 CRAMPS,DIARRHEA Patient History Medical History (Updated 07/03/24 @ 15:54 by Ana Romero DO) History of urinary retention Elevated serum creatinine History of sepsis History of kidney stones Urine retention History of pulmonary hypertension Presence of IVC filter Morbid obesity with BMI of 50.0-59.9, adult Pulmonary edema (06/2022) Peripheral neuropathy BPH (benign prostatic hyperplasia) GERD (gastroesophageal reflux disease) Thrombocytopenia Nonischemic cardiomyopathy Severe muscle deconditioning Acute respiratory failure with hypoxia Acute on chronic systolic heart failure Pneumonia Acute hypoxemic respiratory failure Pneumonia Vision disorder Hearing loss Sleep apnea (~1989) Fractures (~1989) Foot pain (~1989) Chronic back pain (~2009) Measles (~1959) Chicken pox (~1959) Irritable bowel syndrome (~2014) Low testosterone (~1989) Deep vein thrombosis (~1989) Atrial fibrillation (~2014) Surgical History Status post implantation of mitral valve leaflet clip (06/10/23) AICD (automatic cardioverter/defibrillator) present (06/13/22) Anesthesia History of back surgery History of tonsillectomy History of surgery (~2015) [place] filter in place (~1992) Social History household members: spouse Smoking Status: Unknown if ever smoked alcohol intake: current Smoking Status: Unknown if ever smoked alcohol intake frequency: 0-2 drinks per day Alcohol type: wine Exam Initial Vital Signs Initial Vital Signs: Vital Signs Temperature 98.4 F 07/03/24 10:18 Pulse Rate 69 07/03/24 10:18 Respiratory Rate 15 07/03/24 10:18 Blood Pressure 106/56 L 07/03/24 10:18 Pulse Oximetry 93 04/02/25 10:18 Oxygen Delivery Method Room Air 07/03/24 10:18 GENERAL: Alert pleasant 74-year-old male and in no acute distress. HEENT: Head atraumatic,EOMI, pupils reactive, face symmetric, moist mucous membranes CARDIOVASCULAR: Regular rate and rhythm without murmurs, rubs or gallops. RESPIRATORY: Breath sounds equal bilaterally, no wheezes rales or rhonchi. ABDOMEN: Soft, nontender. Normoactive bowel sounds all 4 quadrants. No guarding or rebound. decreased flexion in right knee distal pedal pulse intact Pelvis-no significant pain on iliac crest no pain with internal or external rotation of right hip EXTREMITIES: Normal range of motion, no clubbing or edema. Neurovascularly intact pelvis stable NEUROLOGICAL: Awake alert oriented x4 able to lift both extremities SKIN: Warm, dry, no laceration, no petechiae, no rashes or lesions. Course Orders Ordered: ED Orders 07/03/24 11:06 XR hip w pel if done RT 2V Stat XR knee RT 3V Stat 07/03/24 11:46 XR ankle RT min 3V Stat 07/03/24 12:35 CT LE RT wo con Stat 07/03/24 13:55 CBC Auto Diff [Complete Blood Count AUTO DIFF] Stat CMP [Comprehensive Metabolic Panel] Stat Discontinued Medications Morphine Sulfate (Morphine 2 Mg/Ml Inj) 2 mg IV NOW ONE Stop: 07/03/24 12:37 Last Admin: 07/03/24 12:39 Dose: Not Given Documented By: EUSEBIO Oxycodone/Acetaminophen (Oxycodone/Acetaminophen 5/325 Tablet) 1 tab PO NOW ONE Stop: 07/03/24 12:41 Last Admin: 07/03/24 12:47 Dose: 1 tab Documented By: EUSEBIO Oxycodone/Acetaminophen (Oxycodone/Acetaminophen 5/325 Tablet) 1 tab PO NOW ONE Stop: 07/03/24 15:50 Last Admin: 07/03/24 16:06 Dose: 1 tab Documented By: EUSEBIO(2) Vital Signs Vital signs: Vital Signs - 8 hr 07/03/24 10:18 07/03/24 10:25 07/03/24 10:26 Temperature 98.4 F Pulse Rate 69 Respiratory Rate 15 Blood Pressure 106/56 L 106/56 L Pulse Oximetry 93 86 L Oxygen Delivery Method Room Air 07/03/24 10:26 07/03/24 10:30 07/03/24 10:30 Temperature Pulse Rate 70 72 Respiratory Rate Blood Pressure 103/57 L Pulse Oximetry 92 93 Oxygen Delivery Method 07/03/24 11:00 07/03/24 11:00 07/03/24 11:42 Temperature Pulse Rate 67 70 Respiratory Rate Blood Pressure 106/62 Pulse Oximetry 93 92 Oxygen Delivery Method 07/03/24 12:00 07/03/24 12:30 07/03/24 12:47 Temperature Pulse Rate 70 73 Respiratory Rate Blood Pressure 113/57 L Pulse Oximetry 91 95 Oxygen Delivery Method 07/03/24 12:47 07/03/24 13:00 07/03/24 13:00 Temperature Pulse Rate 70 70 Respiratory Rate Blood Pressure 117/60 Pulse Oximetry 92 93 Oxygen Delivery Method 07/03/24 13:30 07/03/24 13:30 07/03/24 14:10 Temperature Pulse Rate 70 66 Respiratory Rate 18 Blood Pressure 123/66 124/60 Pulse Oximetry 96 96 Oxygen Delivery Method Room Air 07/03/24 16:00 07/03/24 16:01 07/03/24 16:01 Temperature Pulse Rate 66 68 Respiratory Rate Blood Pressure 126/69 Pulse Oximetry 96 97 Oxygen Delivery Method MDM - Fall Lab Data 07/03/24 13:55 07/03/24 13:55 Labs: Lab Results 07/03/24 Range/Units 13:55 WBC 6.4 (4.5-11.0) X10^3/uL RBC 3.38 L (4.5-5.9) X10^6/uL Hgb 11.0 L (13.5-17.5) g/dL Hct 32.9 L (41-53) % MCV 97.5 (80-100) fL MCH 32.5 (26-34) PG MCHC 33.3 (30-36) % RDW 14.5 (11.6-14.8) % Plt Count 173 (150-400) X10^3/uL Neut % (Auto) 85.8 H (50-75) % Lymph % (Auto) 6.5 L (25-40) % [place] % (Auto) 7.2 (3-14) % Eos % (Auto) 0.2 L (2-4) % Baso % (Auto) 0.3 (0-2) % Neut # (Auto) 5500 (1463-1468) /uL Lymph # (Auto) 400 L (2925-3709) /uL [place] # (Auto) 500 (0-900) /uL Eos # (Auto) 0 (0-450) /uL Baso # (Auto) 0 (0-100) /uL Sodium 141 (137-145) mmol/L Potassium 4.6 (3.4-5.1) mmol/L Chloride 106 (98-107) mmol/L Carbon Dioxide 26 (22-32) mmol/L BUN 41 H (9-20) mg/dL Creatinine 1.40 H (0.66-1.25) mg/dL Estimated GFR 52 L (>60) mL/min BUN/Creatinine Ratio 29.3 H (6-22) Glucose 105 (80-110) mg/dL Calcium 9.6 (8.4-10.2) mg/dL Total Bilirubin 1.0 (0.2-1.3) mg/dL AST 37 (17-59) IU/L ALT 23 (<50) IU/L Alkaline Phosphatase 92 (38-126) U/L Total Protein 7.3 (6.3-8.2) g/dL Albumin 4.2 (3.5-5.0) g/dL Globulin 3.1 (1.7-4.1) g/dL Albumin/Globulin Ratio 1.4 (1.0-2.8) Imaging Data Extremity x-ray #1: Radiologist's Impression: PROCEDURE: XR HIP W PEL IF DONE RT 2V INDICATIONS: fall TECHNIQUE: AP pelvis with lateral view(s) of the right hip(s). COMPARISON: None. FINDINGS: Bones: Lucency in the right femur greater trochanter identified only on the lateral view. Pelvic ring appears intact. No suspicious bony lesions. Soft tissues: The visualized bowel gas pattern is normal. No suspicious soft tissue calcifications. IMPRESSION: Lucency in the right femur greater trochanter which could represent nondisplaced fracture or artifact. Recommend CT scan of the right hip for additional evaluation. Dictated by: Florina Salazar MD, PhD on 07/03/2024 at 11:37 Extremity x-ray #2: Radiologist's Impression: PROCEDURE: XR KNEE RT 3V INDICATIONS: fall TECHNIQUE: 3 views of the knee were acquired. COMPARISON: None. FINDINGS: Bones: No fractures or dislocations. No suspicious bony lesions. Tricompartmental osteoarthritis. Soft tissues: Moderate-sized joint effusion. No suspicious soft tissue calcifications. IMPRESSION: No fracture. No osseous lesion. If symptoms and/or clinical suspicion for pathology persists, further assessment with repeat radiographs (7-10 days) or advanced imaging (e.g. CT, MRI or bone scan) should be considered. Moderate-sized nonspecific joint effusion. Occult injury including ligamentous injury is not excluded by this study. Dictated by: Florina Salazar MD, PhD on 07/03/2024 at 11:39 Extremity x-ray #3: Radiologist's Impression: PROCEDURE: XR ANKLE RT MIN 3V INDICATIONS: PAIN TECHNIQUE: 3 views of the ankle were acquired. COMPARISON: None. FINDINGS: Bones: No fractures or dislocations. Ankle mortise is normally aligned. No suspicious bony lesions. Midfoot, tibiotalar and subtalar joint osteoarthritis. Large plantar calcaneal bone spur. Soft tissues: No tibiotalar joint effusion. Achilles tendon appears normal. IMPRESSION: No fracture. No osseous lesion. If symptoms and/or clinical suspicion for pathology persists, further assessment with repeat radiographs (7-10 days) or advanced imaging (e.g. CT, MRI or bone scan) should be considered. Dictated by: Florina Salazar MD, PhD on 07/03/2024 at 11:52 CT LE: Radiologist's Impression: PROCEDURE: CT LE RT WO CON INDICATIONS: pain fall ?fracture right hip TECHNIQUE: Noncontrast 3 mm axial sections acquired of the right thigh, with coronal and sagittal reformats. COMPARISON: [facility], CR, XR HIP W PEL IF DONE RT 2V, 07/03/2024, 11:17. FINDINGS: Image quality: Excellent. Bones: Alignment of right femur is anatomic. Cortical irregularity and subtle radiolucency extending along anterior superior aspect of distal right femoral neck extending to base of greater trochanter consistent with a subtle nondisplaced fracture in this area series 4, image 76. No other fracture or dislocation. Moderate right hip joint osteoarthritic changes are seen without avascular necrosis of femoral head. Moderate tricompartmental osteoarthritis in right knee is also seen. No significant patellar subluxation. No suspicious intraosseous lesions. Soft tissues: There is very mild soft tissue swelling and edema surrounding distal right femoral neck and greater trochanter. No discrete soft tissue mass or drainable fluid collection. No significant right hip joint effusion. Moderate right suprapatellar joint effusion is seen. No calcified intra-articular loose bodies. No gross full- thickness rim muscle or tendon rupture. IMPRESSION: 1. Finding is suggestive of a subtle nondisplaced fracture involving anterior and superior aspect of right femoral neck extending to anterior base of greater trochanter. No other fracture or dislocation. No suspicious bony lesions. 2. Right hip and right knee joint osteoarthritis. No evidence of avascular necrosis of femoral head. 3. Mild soft tissue swelling and edema adjacent to distal right femoral neck and greater trochanter. No abnormal soft tissue calcification or drainable fluid collection. Moderate right knee joint effusion. No calcified intra-articular loose bodies. MDM Narrative Medical decision making narrative: Patient is 74-year-old male multiple comorbidities presenting to day with mechanical trip and fall. He denies any pain really complaining of knee pain. He was on anticoagulation but did not hit his head no evidence of trauma no nausea vomiting. Imaging reviewed both hip any and ankle. Hip does suggest a possible nondisplaced greater trochanter fracture which is confirmed by CT Blood work has been reviewed no leukocytosis no anemia Dr. Lim on-call orthopedics recommends that patient can weightbear and has no groin pain may weightbear with assisted device as tolerated. If having groin pain may need MRI Patient not having any sort of groin pain he was having some mild knee pain. He was able to stand and weightbear. Patient and report that they have multiple devices at home including wheelchair in the electric wheelchair along with hospital beds. At this time supportive care, weightbear as tolerated. Discharge Plan Departure Patient Disposition: Home Clinical Impression: Closed fracture of greater trochanter of right femur Instructions: Hip Fracture Activity Restrictions/Additional Instructions: *You have been diagnosed with right greater trochanteric fracture *What to do: May weightbear and pivot as tolerated. This will take time to heal. Ice as needed *Continue to take medications as directed Oxycodone 5 mg every 6 hours if needed for severe pain Tylenol 1000 mg every 6 hours if needed for [id number] *Follow up with your primary care provider in 2-3 days or call [phone] Dr. Abdi [facility] *Return to ER if you should have increasing pain weakness or any new, worsening or concerning symptoms CONTROLLED SUBSTANCE DISCHARGE (Narcotoic/benzodiazepine/Flexeril/Phenergan) 1. You have been prescribed narcotic medications, it does have acetaminophen/Tylenol/paracetamol in it, DO NOT TAKE MORE THAN 4,00mg in 24 hours of Tylenol. TRAMADOL DOES NOT CONTAIN TYLENOL 2. Please understand that we cannot provide further refills of narcotics, benzodiazepines or controlled substances through the ED and her pain management will need to be through your provider. 3. While on these medications you cannot drive or operate heavy machinery. 4. You cannot sign legal documents or perform any duties such as this. 5. As long as you're taking opiate pain medications he should also be taking a stool softener such as Colace, Dulcolax, MiraLAX or prune juice, to help avoid constipation. Prescriptions: New oxycodone 5 mg tablet 5 mg PO Q6H PRN (Reason: pain) Qty: 14 0RF No Action hydrocodone-acetaminophen 5-325 mg tablet 1 tab PO Q4-6H PRN (Reason: pain) Qty: 15 0RF cyclobenzaprine 5 mg tablet 5 mg PO TID PRN (Reason: muscle spasm) Qty: 60 0RF metoprolol succinate 25 mg tablet extended release 24 hr PO DAILY Eliquis 5 mg tablet See Rx Instructions .ROUTE .COMPLEX Qty: 180 3RF Dose Instruction: TAKE 1 TABLET TWICE A DAY Rx Instructions: TAKE 1 TABLET TWICE A DAY gabapentin 300 mg capsule See Rx Instructions .ROUTE .COMPLEX Qty: 270 3RF Rx Instructions: 300mg in am and 600mg at bedtime. Disabled Parking See Rx Instructions .ROUTE .COMPLEX Qty: 365 0RF Rx Instructions: I find this patient to be medically disabled and qualified for Disabled Parking as indicated and signed on the accompanying Disabled Parking Application for Individuals Entresto 24-26 mg tablet 1 tab PO BID Qty: 180 3RF spironolactone 25 mg tablet 12.5 mg PO DAILY PRN (Reason: chf) Qty: 30 0RF Hold Instructions: For hyperK per Cardiology tamsulosin 0.4 mg capsule 0.8 mg PO DAILY Qty: 180 0RF pantoprazole 40 mg tablet,delayed release (DR/EC) 40 mg PO DAILY Qty: 90 1RF (DME) Electric wheelchair See Rx Instructions .Route .MEDSUPPLY Qty: 1 0RF Rx Instructions: As directed multivit with min-folic acid 0.4 mg Tablet 1 tab PO DAILY Adult 50 Plus Probiotic 4 billion cell capsule 4,000 mmu cells PO DAILY Rx Instructions: administer with a meal melatonin 10 mg capsule 10 mg PO BEDTIME PRN epinephrine 0.3 mg/0.3 mL auto-injector 0.3 mg IM ONCE Rx Instructions: as a single dose; may repeat once Referrals: [facility] [Provider Group] Matt Lopez MD [Primary Care Provider] - Stand Alone Forms: Patient Portal/API/Survey
--- NOTE | 2024-07-03 11:06 | DI.RAD.S_ITS ---
PROCEDURE: XR HIP W PEL IF DONE RT 2V INDICATIONS: fall TECHNIQUE: AP pelvis with lateral view(s) of the right hip(s). COMPARISON: None. FINDINGS: Bones: Lucency in the right femur greater trochanter identified only on the lateral view. Pelvic ring appears intact. No suspicious bony lesions. Soft tissues: The visualized bowel gas pattern is normal. No suspicious soft tissue calcifications. IMPRESSION: Lucency in the right femur greater trochanter which could represent nondisplaced fracture or artifact. Recommend CT scan of the right hip for additional evaluation. Dictated by: Florina Salazar MD, PhD on 07/03/2024 at 11:37 Approved by: Florina Salazar MD, PhD on 07/03/2024 at 11:39
--- NOTE | 2024-07-03 11:06 | DI.RAD.S_ITS ---
PROCEDURE: XR KNEE RT 3V INDICATIONS: fall TECHNIQUE: 3 views of the knee were acquired. COMPARISON: None. FINDINGS: Bones: No fractures or dislocations. No suspicious bony lesions. Tricompartmental osteoarthritis. Soft tissues: Moderate-sized joint effusion. No suspicious soft tissue calcifications. IMPRESSION: No fracture. No osseous lesion. If symptoms and/or clinical suspicion for pathology persists, further assessment with repeat radiographs (7-10 days) or advanced imaging (e.g. CT, MRI or bone scan) should be considered. Moderate-sized nonspecific joint effusion. Occult injury including ligamentous injury is not excluded by this study. Dictated by: Florina Salazar MD, PhD on 07/03/2024 at 11:39 Approved by: Florina Salazar MD, PhD on 07/03/2024 at 11:40
--- NOTE | 2024-07-03 11:46 | DI.RAD.S_ITS ---
PROCEDURE: XR ANKLE RT MIN 3V INDICATIONS: PAIN TECHNIQUE: 3 views of the ankle were acquired. COMPARISON: None. FINDINGS: Bones: No fractures or dislocations. Ankle mortise is normally aligned. No suspicious bony lesions. Midfoot, tibiotalar and subtalar joint osteoarthritis. Large plantar calcaneal bone spur. Soft tissues: No tibiotalar joint effusion. Achilles tendon appears normal. IMPRESSION: No fracture. No osseous lesion. If symptoms and/or clinical suspicion for pathology persists, further assessment with repeat radiographs (7-10 days) or advanced imaging (e.g. CT, MRI or bone scan) should be considered. Dictated by: Florina Salazar MD, PhD on 07/03/2024 at 11:52 Approved by: Florina Salazar MD, PhD on 07/03/2024 at 11:53
--- NOTE | 2024-07-03 12:35 | DI.CT.S_ITS ---
PROCEDURE: CT LE RT WO CON INDICATIONS: pain fall ?fracture right hip TECHNIQUE: Noncontrast 3 mm axial sections acquired of the right thigh, with coronal and sagittal reformats. COMPARISON: [facility], CR, XR HIP W PEL IF DONE RT 2V, 07/03/2024, 11:17. FINDINGS: Image quality: Excellent. Bones: Alignment of right femur is anatomic. Cortical irregularity and subtle radiolucency extending along anterior superior aspect of distal right femoral neck extending to base of greater trochanter consistent with a subtle nondisplaced fracture in this area series 4, image 76. No other fracture or dislocation. Moderate right hip joint osteoarthritic changes are seen without avascular necrosis of femoral head. Moderate tricompartmental osteoarthritis in right knee is also seen. No significant patellar subluxation. No suspicious intraosseous lesions. Soft tissues: There is very mild soft tissue swelling and edema surrounding distal right femoral neck and greater trochanter. No discrete soft tissue mass or drainable fluid collection. No significant right hip joint effusion. Moderate right suprapatellar joint effusion is seen. No calcified intra-articular loose bodies. No gross full-thickness rim muscle or tendon rupture. IMPRESSION: 1. Finding is suggestive of a subtle nondisplaced fracture involving anterior and superior aspect of right femoral neck extending to anterior base of greater trochanter. No other fracture or dislocation. No suspicious bony lesions. 2. Right hip and right knee joint osteoarthritis. No evidence of avascular necrosis of femoral head. 3. Mild soft tissue swelling and edema adjacent to distal right femoral neck and greater trochanter. No abnormal soft tissue calcification or drainable fluid collection. Moderate right knee joint effusion. No calcified intra-articular loose bodies. Dictated by: Jose Antonio Sanford M.D. on 07/03/2024 at 13:09 Approved by: Jose Antonio Sanford M.D. on 07/03/2024 at 13:14
[2024-07-03] MEDS: OXYCODONE/ACETAMINOPHEN 5/325 TABLET 1 TAB PO ×2 (12:47→16:06)
[2024-07-03 14:03] LABS: Add Manual Diff / Slide Review NO; Basophils Absolute Auto 0 /uL (0-100); Basophils Percent Auto 0.3 % (0-2); Eosinophils Absolute Auto 0 /uL (0-450); Eosinophils Percent Auto 0.2 % (2-4); Hematocrit 32.9 % (41-53); Lymphocytes Absolute Auto 400 /uL (1100-4500); Lymphocytes Percent Auto 6.5 % (25-40); Mean Corpuscular HGB Conc 33.3 % (30-36); Mean Corpuscular Hemoglobin 32.5 PG (26-34); Mean Corpuscular Volume 97.5 fL (80-100); Monocytes Absolute Auto 500 /uL (0-900); Monocytes Percent Auto 7.2 % (3-14); Neutrophils Absolute Auto 5500 /uL (1500-7000); Neutrophils Percent Auto 85.8 % (50-75); Platelet Count 173 X10^3/uL (150-400); Red Blood Cell Count 3.38 X10^6/uL (4.5-5.9); Red Cell Distribution Width 14.5 % (11.6-14.8); White Blood Cell Count 6.4 X10^3/uL (4.5-11.0)
[2024-07-03 14:15] LABS: Alanine Aminotransferase 23 IU/L (<50); Albumin 4.2 g/dL (3.5-5.0); Albumin Globulin Ratio 1.4 (1.0-2.8); Alkaline Phosphatase 92 U/L (38-126); Aspartate Aminotransferase 37 IU/L (17-59); BUN Creatinine Ratio 29.3 (6-22); Blood Urea Nitrogen 41 mg/dL (9-20); Calcium 9.6 mg/dL (8.4-10.2); Carbon Dioxide 26 mmol/L (22-32); Chloride 106 mmol/L (98-107); Estimated Glomerular Filt Rate 52 mL/min (>60); Globulin 3.1 g/dL (1.7-4.1); Glucose 105 mg/dL (80-110); HEMOLYSIS < 15 (0-50); Potassium 4.6 mmol/L (3.4-5.1); Sodium 141 mmol/L (137-145); Total Protein 7.3 g/dL (6.3-8.2)
--- NOTE | 2024-07-03 15:54 | PC.NURSE ---
Ambulation - Patient was able to sit up on the side of the bed with only one hand for assistance. Patient able to stand up to use his walker on his own, walk to the wheelchair with assistance of his walker, as well as sit down and sit up from the wheelchair on his own. Patient's stated that they had equipment at home that would make ambulating easier.
== END 2024-07-03 16:09 | disposition home or self-care (01) ==
PROVIDERS: Emergency Provider Emergency Medicine; Family Provider Family Medicine; PCP Family Medicine
DX: S72.111A Displaced fracture of greater trochanter of right femur, initial encounter for closed fracture (principal); W01.0XXA Fall on same level from slipping, tripping and stumbling without subsequent striking against object, initial encounter
CPT/HCPCS: 73502; 73562; 73610; 73700; 80053; 85025; 99283; 99284

== ENCOUNTER → 2024-08-13 07:11 | Outpatient (CLI) | payer MEDICARE, SELFPAY ==
[2024-01-24 13:04] VITALS: PULSE 64; RESP 22; O2SAT 98; BMI 40.0
[2024-08-13 08:29] LABS: Alanine Aminotransferase 19 IU/L (<50); Albumin 4.1 g/dL (3.5-5.0); Albumin Globulin Ratio 1.4 (1.0-2.8); Alkaline Phosphatase 103 U/L (38-126); Aspartate Aminotransferase 32 IU/L (17-59); BUN Creatinine Ratio 28.8 (6-22); Bilirubin Total 0.6 mg/dL (0.2-1.3); Blood Urea Nitrogen 40 mg/dL (9-20); Calcium 9.7 mg/dL (8.4-10.2); Carbon Dioxide 24 mmol/L (22-32); Chloride 110 mmol/L (98-107); Estimated Glomerular Filt Rate 53 mL/min (>60); Glucose 88 mg/dL (70-99); HEMOLYSIS < 15 (0-50); Potassium 4.8 mmol/L (3.4-5.1); Sodium 143 mmol/L (137-145); Total Protein 7.1 g/dL (6.3-8.2)
[2024-08-13 08:32] LABS: BUN Creatinine Ratio 28.8 (6-22); Blood Urea Nitrogen 40 mg/dL (9-20); Calcium 9.7 mg/dL (8.4-10.2); Carbon Dioxide 24 mmol/L (22-32); Chloride 110 mmol/L (98-107); Estimated Glomerular Filt Rate 53 mL/min (>60); Glucose 89 mg/dL (70-99); HEMOLYSIS < 15 (0-50); Potassium 4.8 mmol/L (3.4-5.1); Sodium 143 mmol/L (137-145)
[2024-08-13 09:00] LABS: Prostate Specific Antigen Scrn 0.341 ng/mL (0.1-4.0)
[2024-08-13 09:17] LABS: Free T4, Direct Thyroxine 1.52 ng/dL (0.78-2.19)
[2024-08-13 09:31] LABS: Thyroid Stimulating Hormone 4.81 uIU/mL (0.47-4.68)
== END ==
LOC: LAB 07:13
PROVIDERS: Urology; Family Provider Family Medicine; PCP Family Medicine; Referring Provider Physician Assistant; Visit Provider Physician Assistant
DX: Z12.5 Encounter for screening for malignant neoplasm of prostate (principal); I50.20 Unspecified systolic (congestive) heart failure; I47.20 Ventricular tachycardia, unspecified; Z79.899 Other long term (current) drug therapy; R79.89 Other specified abnormal findings of blood chemistry
CPT/HCPCS: 36415; 80048; 80053; 84439; 84443; G0103

== ENCOUNTER → 2024-08-14 13:17 | Outpatient (CLI) | payer MEDICARE, SELFPAY ==
[2024-01-24 13:04] VITALS: PULSE 64; RESP 22; O2SAT 98; BMI 40.0
== END ==
LOC: RESP 13:19
PROVIDERS: Family Provider Family Medicine; PCP Family Medicine; Referring Provider Physician Assistant; Visit Provider Physician Assistant
DX: I27.20 Pulmonary hypertension, unspecified (principal); I50.20 Unspecified systolic (congestive) heart failure; I42.8 Other cardiomyopathies; Z95.810 Presence of automatic (implantable) cardiac defibrillator; Z98.890 Other specified postprocedural states; Z95.818 Presence of other cardiac implants and grafts; I48.21 Permanent atrial fibrillation; R94.2 Abnormal results of pulmonary function studies
CPT/HCPCS: 94060; 94726; 94729

== ENCOUNTER → 2024-09-19 10:19 | Outpatient (CLI) | payer MEDICARE, SELFPAY ==
[2024-01-24 13:04] VITALS: PULSE 64; RESP 22; O2SAT 98; BMI 40.0
[2024-09-19 11:18] LABS: Occult Blood 1 NEGATIVE (Negative); Sample 1 Time NEGATIVE
[2024-09-19 11:19] LABS: Occult Blood 2 NEGATIVE (Negative); Occult Blood 3 NEGATIVE (Negative); Sample 2 time NEGATIVE; Sample 3 time NEGATIVE
[2024-09-19 12:09] LABS: Adenovirus F 40/41 Not Detected (Not Detect); Astrovirus Not Detected (Not Detect); Campylobacter Not Detected (Not Detect); Clostridium difficile toxin AB Not Detected (Not Detect); Cryptosporidium Not Detected (Not Detect); Cyclospora cayetanensis Not Detected (Not Detect); Entamoeba histolytica Not Detected (Not Detect); Enteroaggregative E.coli Not Detected (Not Detect); Enteropathogenic E.coli Not Detected (Not Detect); Enterotoxigenic E.coli It/st Not Detected (Not Detect); Giardia lamblia Not Detected (Not Detect); Norovirus GI/GII Not Detected (Not Detect); Plesiomonsa shigelloides Not Detected (Not Detect); Rotavirus A Not Detected (Not Detect); Salmonella Not Detected (Not Detect); Sapovirus Not Detected (Not Detect); Shiga-like toxin-prod E.coli Not Detected (Not Detect); Shigella/Enteroinvasive E.coli Not Detected (Not Detect); Vibrio Not Detected (Not Detect); Vibrio cholerae Not Detected (Not Detect); Yersinia enterocolitica Not Detected (Not Detect)
[2024-09-20 16:36] LABS: Fats, Neutral Normal (.); Fats, Total Normal (.)
== END ==
PROVIDERS: Family Provider Family Medicine; PCP Family Medicine; Referring Provider Family Medicine; Visit Provider Family Medicine
DX: K52.9 Noninfective gastroenteritis and colitis, unspecified (principal)
CPT/HCPCS: 82270; 82705; 83993; 87177; 87205; 87507

== ENCOUNTER 2024-10-09 08:36 | Inpatient (IN) | payer MEDICARE, SELFPAY ==
[2024-01-24 13:04] VITALS: PULSE 64; RESP 22; O2SAT 98; BMI 40.0
[2024-10-09] VITALS (19 sets, daily range): BP systolic 110–136; BP diastolic 59–77; PULSE 69–73; RESP 17–26; TEMP 35.9–36.7; O2SAT 91–100; BMI 40.4
--- NOTE | 2024-10-09 08:38 | ED.SOB ---
HPI - SOB/Dyspnea General Chief Complaint: Shortness of Breath/Dyspnea Stated Complaint: Short of Breath, weakness History of Present Illness HPI Narrative: 74-year-old male history of atrial fibrillation on Eliquis, CKD, BPH, morbid obesity, congestive heart failure, pacemaker, neuropathy presents with multiple complaints today headache neck pain and shortness of breath dyspnea on exertion for which he is not on oxygen but per EMS was 90% on room air and placed on 2 L now at 97%. Patient reports no energy, feeling generalized weakness and sleeping more. Patient denies active chest pain, fever, chills, body aches, sore throat, but does endorse cough with sputum production, and occasional diarrhea. Other than what is stated 14 point review of system is negative. Related Data Home Medications ?Medication ?Instructions ?Recorded ?Confirmed multivitamin with minerals-folic 1 tab PO DAILY 02/17/22 05/23/24 acid 0.4 mg tablet epinephrine 0.3 mg/0.3 mL 0.3 mg IM ONCE 09/11/23 05/23/24 injection, auto-injector lactobacillus combination no.9 4 4,000 mmu cells PO DAILY 09/11/23 05/23/24 billion cell capsule (Adult 50 Plus Probiotic) melatonin 10 mg capsule 10 mg PO BEDTIME PRN 09/11/23 05/23/24 metoprolol succinate 25 mg mg PO DAILY 05/09/24 05/23/24 tablet,extended release 24 hr Previous Rx's ?Medication ?Instructions ?Recorded apixaban 5 mg tablet (Eliquis) See Rx Instructions .Route 04/27/23 .COMPLEX #180 tabs Disabled Parking See Rx Instructions .Route 10/10/23 .COMPLEX #365 days sacubitril 24 mg-valsartan 26 mg 1 tab PO BID #180 tabs 12/04/23 tablet (Entresto) spironolactone 25 mg tablet 12.5 mg (1/2 x 25 mg) PO DAILY PRN 02/14/24 Held on 05/09/24. chf #30 tabs Instructions: For hyperK per Cardiology cyclobenzaprine 5 mg tablet 5 mg PO TID PRN muscle spasm #60 03/22/24 tabs hydrocodone 5 mg-acetaminophen 325 1 tab PO Q4-6H PRN pain #15 tabs 05/16/24 mg tablet Electric wheelchair #1 ea 05/22/24 oxycodone 5 mg tablet 5 mg PO Q6H PRN pain #14 tabs 07/03/24 tamsulosin 0.4 mg capsule 0.8 mg (2 x 0.4 mg) PO DAILY #180 07/23/24 caps pantoprazole 40 mg tablet,delayed 40 mg PO DAILY #90 tabs 09/16/24 release gabapentin 300 mg capsule See Rx Instructions .Route 09/23/24 .COMPLEX #270 caps Allergies Allergy/AdvReac Type Severity Reaction Status Date / Time latex (LATEX) Allergy Intermediate Rash Verified 07/03/24 10:26 nitrofurantoin AdvReac Severe Diarrhea Verified 07/03/24 10:26 MULTIPLE FOOD ALLERGIES Allergy Intermediate STOMACH Uncoded 05/23/24 15:06 CRAMPS,DIARRHEA Review of Systems Review of Systems ROS Unobtainable: All systems reviewed & are unremarkable except as noted in HPI and below Patient History Medical History (Updated 10/09/24 @ 13:37 by Caden Denny, DO) History of urinary retention Elevated serum creatinine History of sepsis History of kidney stones Urine retention History of pulmonary hypertension Presence of IVC filter Morbid obesity with BMI of 50.0-59.9, adult Pulmonary edema (06/2022) Peripheral neuropathy BPH (benign prostatic hyperplasia) GERD (gastroesophageal reflux disease) Thrombocytopenia Nonischemic cardiomyopathy Severe muscle deconditioning Acute respiratory failure with hypoxia Acute on chronic systolic heart failure Pneumonia Acute hypoxemic respiratory failure Pneumonia Vision disorder Hearing loss Sleep apnea (~1989) Fractures (~1989) Foot pain (~1989) Chronic back pain (~2009) Measles (~1959) Chicken pox (~1959) Irritable bowel syndrome (~2014) Low testosterone (~1989) Deep vein thrombosis (~1989) Atrial fibrillation (~2014) Surgical History Status post implantation of mitral valve leaflet clip (06/10/23) AICD (automatic cardioverter/defibrillator) present (06/13/22) Anesthesia History of back surgery History of tonsillectomy History of surgery (~2015) Mehdi filter in place (~1992) Social History household members: spouse alcohol intake: current alcohol intake frequency: 0-2 drinks per day Alcohol type: wine Exam Narrative Exam Narrative: GENERAL: [74] year old patient appears stated age. Well-developed patient, in mild distress. HEAD: Atraumatic. Normocephalic. EYES: Pupils equal round and reactive. Extraocular motions intact. No scleral icterus. No injection or drainage. ENT: Nose without bleeding, purulent drainage. Throat without erythema, tonsillar hypertrophy or exudate. Airway patent. NECK: Trachea midline. Non tender CARDIOVASCULAR: Regular rate and rhythm without murmurs, gallops, or rubs. RESPIRATORY: Faint crackles bilateral bases with decreased breath sounds GASTROINTESTINAL: Abdomen soft, non-tender, nondistended. EXTREMITIES: No edema or joint tenderness. BACK: Nontender without deformity or crepitance. No flank tenderness. NEURO: AOx3. SKIN: No rash or erythema of visible areas Initial Vital Signs Initial Vital Signs: Vital Signs Temperature 98.0 F 10/09/24 08:40 Pulse Rate 69 10/09/24 08:40 Respiratory Rate 21 10/09/24 08:40 Blood Pressure 130/64 10/09/24 08:40 Pulse Oximetry 100 10/09/24 08:40 Oxygen Delivery Method Nasal Cannula 10/09/24 08:40 Oxygen Flow Rate 2 10/09/24 08:40 Course Orders Ordered: ED Orders 10/09/24 08:43 EKG-12 Lead Stat 10/09/24 08:45 Complete Blood Count AUTO DIFF Stat Lactate (Lactic Acid) Stat Procalcitonin Stat Prothrombin Time INR Stat Troponin & CK Cardiac Panel Stat 10/09/24 08:59 CT angio chest PE protocol Stat 10/09/24 09:21 VBG [Venous Blood Gas] STAT 10/09/24 09:54 Covid-19 + FLU A/B + RSV - PCR Stat 10/09/24 10:12 Blood Culture Stat 10/09/24 10:16 Venous Blood Gas Routine 10/09/24 10:50 XR chest 1V Stat EKG-12 Lead Stat Measure peak expiratory flow STAT RT Consult Eval and Treat STAT 10/09/24 11:22 UA dip and micro [Urinalysis and Microscopic] Stat 10/09/24 12:20 Comprehensive Metabolic Panel Stat NT-proBNP (BNP-Adult 18+) Stat Discontinued Medications Furosemide (Furosemide 40 Mg/4 Ml Vial) 40 mg IV NOW ONE Stop: 10/09/24 10:53 Last Admin: 10/09/24 11:34 Dose: 40 mg Documented By: CTS Vital Signs Vital signs: Vital Signs - 8 hr 10/09/24 08:40 10/09/24 08:43 10/09/24 08:47 Temperature 98.0 F Pulse Rate 69 69 73 Respiratory Rate 21 21 21 Blood Pressure 130/64 Pulse Oximetry 100 98 97 Oxygen Delivery Method Nasal Cannula Nasal Cannula Oxygen Flow Rate 2 2 10/09/24 08:47 10/09/24 09:00 10/09/24 09:00 Temperature Pulse Rate 69 Respiratory Rate 19 Blood Pressure 130/64 131/60 Pulse Oximetry 98 Oxygen Delivery Method Oxygen Flow Rate 10/09/24 09:30 10/09/24 09:46 10/09/24 09:46 Temperature Pulse Rate 69 69 Respiratory Rate 20 21 Blood Pressure 112/70 Pulse Oximetry 98 97 Oxygen Delivery Method Nasal Cannula Oxygen Flow Rate 2 10/09/24 10:00 10/09/24 10:00 10/09/24 10:30 Temperature Pulse Rate 69 70 Respiratory Rate 20 23 Blood Pressure 110/59 L Pulse Oximetry 95 Oxygen Delivery Method Nasal Cannula Oxygen Flow Rate 2 10/09/24 10:35 10/09/24 10:35 10/09/24 11:00 Temperature Pulse Rate 70 71 Respiratory Rate 24 20 Blood Pressure 131/75 Pulse Oximetry 96 97 Oxygen Delivery Method Nasal Cannula Oxygen Flow Rate 2 10/09/24 11:00 10/09/24 11:30 10/09/24 11:30 Temperature Pulse Rate 69 Respiratory Rate 20 Blood Pressure 121/65 131/64 Pulse Oximetry 91 Oxygen Delivery Method Oxygen Flow Rate 10/09/24 12:00 10/09/24 12:01 10/09/24 12:01 Temperature Pulse Rate 70 71 Respiratory Rate 26 H 23 Blood Pressure 125/67 Pulse Oximetry Oxygen Delivery Method Oxygen Flow Rate 10/09/24 12:30 10/09/24 12:30 Temperature Pulse Rate 70 Respiratory Rate 19 Blood Pressure 131/70 Pulse Oximetry Oxygen Delivery Method Oxygen Flow Rate MDM - SOB/Dyspnea Lab Data 10/09/24 08:45 10/09/24 12:20 Labs: Lab Results 10/09/24 10/09/24 10/09/24 Range/Units 08:45 09:54 10:16 WBC 3.6 L (4.5-11.0) X10^3/uL RBC 3.28 L (4.5-5.9) X10^6/uL Hgb 10.7 L (13.5-17.5) g/dL Hct 32.1 L (41-53) % MCV 97.9 (80-100) fL MCH 32.6 (26-34) PG MCHC 33.3 (30-36) % RDW 15.5 H (11.6-14.8) % Plt Count 220 (150-400) X10^3/uL Neut % (Auto) 67.3 (50-75) % Lymph % (Auto) 17.9 L (25-40) % [place] % (Auto) 12.1 (3-14) % Eos % (Auto) 2.2 (2-4) % Baso % (Auto) 0.5 (0-2) % Neut # (Auto) 2400 (7740-3575) /uL Lymph # (Auto) 600 L (3266-3278) /uL [place] # (Auto) 400 (0-900) /uL Eos # (Auto) 100 (0-450) /uL Baso # (Auto) 0 (0-100) /uL PT 14.2 H (9.4-12.5) SECONDS INR 1.3 (0.9-1.3) VBG pH 7.33 (7.33-7.43) VBG pCO2 49.4 (45-50) mmHg VBG pO2 48 H (35-45) mmHg VBG HCO3 26 (24-28) mmol/L VBG Total CO2 25 (24-29) mmol/L VBG O2 Saturation 80 H (70-75) % VBG Base Excess -0.6 L (0-4) mmol/L Sodium (137-145) mmol/L Potassium (3.4-5.1) mmol/L Chloride (98-107) mmol/L Carbon Dioxide (22-32) mmol/L BUN (9-20) mg/dL Creatinine (0.66-1.25) mg/dL Estimated GFR (>60) mL/min BUN/Creatinine Ratio (6-22) Glucose (70-99) mg/dL Lactate 1.6 (0.7-2.1) mmol/L Calcium (8.4-10.2) mg/dL Total Bilirubin (0.2-1.3) mg/dL AST (17-59) IU/L ALT (<50) IU/L Alkaline Phosphatase (38-126) U/L Total Creatine Kinase 55 (55-170) U/L Troponin I 0.020 (0.01-0.034) ng/mL NT-Pro-B Natriuret Pep (<450) pg/mL Total Protein (6.3-8.2) g/dL Albumin (3.5-5.0) g/dL Globulin (1.7-4.1) g/dL Albumin/Globulin Ratio (1.0-2.8) Procalcitonin 0.074 (<0.5) ng/mL Urine Color Urine Appearance Urine pH (4.5-8.0) Ur Specific [place] (1.000-1.035) Urine Protein (Negative) Urine Glucose (UA) (Negative) g/dL Urine Ketones (NEGATIVE) Urine Occult Blood (Negative) Urine Nitrate (Negative) Urine Bilirubin (NEGATIVE) Urine Urobilinogen (0.2) E.U./dL Ur Leukocyte Esterase (NEGATIVE) Urine RBC (0-5/HPF) Urine WBC (0-5/HPF) Ur Squamous Epith Cells (0-5/HPF) Urine Bacteria (None) Ur Culture Indicated? Vol Urine Centrifuged SARS-CoV-2 (PCR) Negative (Negative) Influenza A (RT-PCR) Flu a negative (NEGATIVE) Influenza B (RT-PCR) Flu b negative (NEGATIVE) RSV (PCR) Negative (Negative) 10/09/24 10/09/24 Range/Units 11:22 12:20 WBC (4.5-11.0) X10^3/uL RBC (4.5-5.9) X10^6/uL Hgb (13.5-17.5) g/dL Hct (41-53) % MCV (80-100) fL MCH (26-34) PG MCHC (30-36) % RDW (11.6-14.8) % Plt Count (150-400) X10^3/uL Neut % (Auto) (50-75) % Lymph % (Auto) (25-40) % [place] % (Auto) (3-14) % Eos % (Auto) (2-4) % Baso % (Auto) (0-2) % Neut # (Auto) (2476-1822) /uL Lymph # (Auto) (2623-2525) /uL [place] # (Auto) (0-900) /uL Eos # (Auto) (0-450) /uL Baso # (Auto) (0-100) /uL PT (9.4-12.5) SECONDS INR (0.9-1.3) VBG pH (7.33-7.43) VBG pCO2 (45-50) mmHg VBG pO2 (35-45) mmHg VBG HCO3 (24-28) mmol/L VBG Total CO2 (24-29) mmol/L VBG O2 Saturation (70-75) % VBG Base Excess (0-4) mmol/L Sodium 144 (137-145) mmol/L Potassium 4.9 (3.4-5.1) mmol/L Chloride 111 H (98-107) mmol/L Carbon Dioxide 25 (22-32) mmol/L BUN 41 H (9-20) mg/dL Creatinine 1.36 H (0.66-1.25) mg/dL Estimated GFR 54 L (>60) mL/min BUN/Creatinine Ratio 30.1 H (6-22) Glucose 94 (70-99) mg/dL Lactate (0.7-2.1) mmol/L Calcium 9.2 (8.4-10.2) mg/dL Total Bilirubin 0.8 (0.2-1.3) mg/dL AST 32 (17-59) IU/L ALT 16 (<50) IU/L Alkaline Phosphatase 146 H (38-126) U/L Total Creatine Kinase (55-170) U/L Troponin I Cancelled (0.01-0.034) ng/mL NT-Pro-B Natriuret Pep 2640 H (<450) pg/mL Total Protein 7.5 (6.3-8.2) g/dL Albumin 4.0 (3.5-5.0) g/dL Globulin 3.5 (1.7-4.1) g/dL Albumin/Globulin Ratio 1.1 (1.0-2.8) Procalcitonin (<0.5) ng/mL Urine Color Yellow Urine Appearance Clear Urine pH 5.5 (4.5-8.0) Ur Specific [place] 1.020 (1.000-1.035) Urine Protein Trace H (Negative) Urine Glucose (UA) Negative (Negative) g/dL Urine Ketones Negative (NEGATIVE) Urine Occult Blood Negative (Negative) Urine Nitrate Negative (Negative) Urine Bilirubin Negative (NEGATIVE) Urine Urobilinogen 0.2 (0.2) E.U./dL Ur Leukocyte Esterase Negative (NEGATIVE) Urine RBC None seen (0-5/HPF) Urine WBC 1-5/hpf (0-5/HPF) Ur Squamous Epith Cells 0-1 /hpf (0-5/HPF) Urine Bacteria None seen (None) Ur Culture Indicated? Cult not indicated Vol Urine Centrifuged 10ml (spun) SARS-CoV-2 (PCR) (Negative) Influenza A (RT-PCR) (NEGATIVE) Influenza B (RT-PCR) (NEGATIVE) RSV (PCR) (Negative) Imaging Data CT scan - chest: Radiologist's Impression: [address] [address] [address] Scan Report Signed Patient: Anderson Duarte MR#: [id number] : 1950 Acct:[id number] Age/Sex: 74 / M Date of Service: 10/09/24 Loc: ED Accession Number: [id number] Procedure: CT angio chest PE protocol Ordering Provider: Caden Denny D.O. PROCEDURE: CT ANGIO CHEST PE PROTOCOL INDICATIONS: sob/ on oxgyen/ yuan TECHNIQUE: After the administration of intravenous contrast, 2 mm thick sections acquired from the pulmonary apices to the posterior costophrenic angles. 3-dimensional maximum intensity projection (MIP) coronal and sagittal reformats were then acquired through the thorax. For radiation dose reduction, the following was used: automated exposure control, adjustment of mA and/or kV according to patient size. COMPARISON: [facility], CT, CT ANGIO CHEST PE PROTOCOL, 01/16/2023, 13:14. FINDINGS: Image quality: Diagnostic. Pulmonary arteries: Pulmonary arteries are normal in size, and demonstrate no intraluminal filling defects to suggest central pulmonary embolism. Lower Neck: No enlarged lymph nodes. Thyroid: No thyroid nodules which require sonographic follow up, per consensus guidelines. Axillae: No enlarged lymph nodes. Chest Wall: Unremarkable. Bones: Unremarkable. Lungs and Pleura: Subtle interstitial pulmonary edema and multifocal patchy ground-glass opacities and early more confluent consolidation consistent with early alveolar pulmonary edema. There is fluid present in both major fissures. There are small bilateral basilar pleural effusions. Heart: Four-chamber cardiomegaly, pacemaker. Small pericardial effusion. Thoracic Vessels: Significant interval increase in the size of the ascending aorta, previously measuring 4.0 cm in currently measuring 4.6 cm. Mediastinum and Samantha: No enlarged lymph nodes. Esophagus: No wall thickening. No hiatal hernia. Upper Abdomen: Visualized upper abdomen solid organs and bowel loops appear normal. IMPRESSION: 1. No acute pulmonary emboli. 2. Significant interval increase in the size of the ascending aorta, previously 4.0 cm and currently 4.6 cm. 3. Congestive heart failure exacerbation with early alveolar edema. 4. Four-chamber cardiomegaly. ECG Data Interpretation: V pacedHR 69 HI undetermined QRS [address]-t wave change Unchanged from 01/03/24 MDM Narrative Medical decision making narrative: Vital signs nurse triage note medication list previous ER visits and all imaging studies reviewed. BNP 2640. CTA PE study CHF exacerbation with early alveolar edema no significant pulmonary emboli. Significant interval increase in the size of aorta 4.0 and currently 4.6 cm. And 4 chamber cardiomegaly. Patient given 40 of Lasix IV and has put out close to 750 urine output has much better but still requiring oxygen at this time. Differential diagnosis includes PE STEMI NSTEMI unstable angina CHF pneumonia sepsis. Case discussed with Dr. Alcantara who has graciously accepted the patient for inpatient admission. Discharge Plan Departure Patient Disposition: Admitted As Inpatient Clinical Impression: CHF (congestive heart failure) Qualifiers: Heart failure type: unspecified Heart failure chronicity: chronic Qualified Code(s): I50.9 - Heart failure, unspecified Admit Date/Time: 10/09/24 13:36 Admit Provider: Solomon Alcantara
--- NOTE | 2024-10-09 08:43 | EKG_ITS ---
[address] [address] Test Date: 2024-10-09 Pat Name: Anderson Duarte Department: Room: Gender: Male Hotel Associate: MARGARET : 1950 Requested By: Order Number: [id number] Reading MD: Caden Milligan MD Measurements Intervals [place] Rate: 69 P: SC: QRS: 114 QRSD: 158 T: 45 QT: 456 QTc: 488 Interpretive Statements Ventricular-paced rhythm Biventricular pacemaker detected Electronically Signed On 10-09-2024 9:52:46 PDT by Caden Milligan MD
--- NOTE | 2024-10-09 08:59 | DI.CT.S_ITS ---
PROCEDURE: CT ANGIO CHEST PE PROTOCOL INDICATIONS: sob/ on oxgyen/ yuan TECHNIQUE: After the administration of intravenous contrast, 2 mm thick sections acquired from the pulmonary apices to the posterior costophrenic angles. 3-dimensional maximum intensity projection (MIP) coronal and sagittal reformats were then acquired through the thorax. For radiation dose reduction, the following was used: automated exposure control, adjustment of mA and/or kV according to patient size. COMPARISON: [facility], CT, CT ANGIO CHEST PE PROTOCOL, 01/16/2023, 13:14. FINDINGS: Image quality: Diagnostic. Pulmonary arteries: Pulmonary arteries are normal in size, and demonstrate no intraluminal filling defects to suggest central pulmonary embolism. Lower Neck: No enlarged lymph nodes. Thyroid: No thyroid nodules which require sonographic follow up, per consensus guidelines. Axillae: No enlarged lymph nodes. Chest Wall: Unremarkable. Bones: Unremarkable. Lungs and Pleura: Subtle interstitial pulmonary edema and multifocal patchy ground-glass opacities and early more confluent consolidation consistent with early alveolar pulmonary edema. There is fluid present in both major fissures. There are small bilateral basilar pleural effusions. Heart: Four-chamber cardiomegaly, pacemaker. Small pericardial effusion. Thoracic Vessels: Significant interval increase in the size of the ascending aorta, previously measuring 4.0 cm in currently measuring 4.6 cm. Mediastinum and Samantha: No enlarged lymph nodes. Esophagus: No wall thickening. No hiatal hernia. Upper Abdomen: Visualized upper abdomen solid organs and bowel loops appear normal. IMPRESSION: 1. No acute pulmonary emboli. 2. Significant interval increase in the size of the ascending aorta, previously 4.0 cm and currently 4.6 cm. 3. Congestive heart failure exacerbation with early alveolar edema. 4. Four-chamber cardiomegaly. Dictated by: Wiliam Casper M.D. on 10/09/2024 at 10:14 Approved by: Wiliam Casper M.D. on 10/09/2024 at 10:21
--- NOTE | 2024-10-09 09:20 | PC.NURSE ---
patient spouse states he has referrals for ortho for his neck and pulmonary..
[2024-10-09 10:05] LABS: Lactate (Lactic Acid) 1.6 mmol/L (0.7-2.1)
[2024-10-09 10:20] LABS: Base Excess VBG -0.6 mmol/L (0-4); HCO3 VBG 26 mmol/L (24-28); Oxygen Saturation VBG 80 % (70-75); PCO2 VBG 49.4 mmHg (45-50); PO2 VBG 48 mmHg (35-45); Total CO2 VBG 25 mmol/L (24-29); pH VBG 7.33 (7.33-7.43)
[2024-10-09 10:22] LABS: Procalcitonin 0.074 ng/mL (<0.5)
[2024-10-09 10:39] LABS: Influenza A - CEPHEID Flu A NEGATIVE (NEGATIVE); Influenza B - CEPHEID Flu B NEGATIVE (NEGATIVE)
[2024-10-09 10:54] LABS: COVID-19 CEPHEID 4-PLEX PCR Negative (Negative)
[2024-10-09 11:07] LABS: Add Manual Diff / Slide Review NO; Hematocrit 32.1 % (41-53); Hemoglobin 10.7 g/dL (13.5-17.5); Lymphocytes Absolute Auto 600 /uL (1100-4500); Mean Corpuscular HGB Conc 33.3 % (30-36); Mean Corpuscular Hemoglobin 32.6 PG (26-34); Mean Corpuscular Volume 97.9 fL (80-100); Platelet Count 220 X10^3/uL (150-400)
[2024-10-09 11:12] LABS: INR 1.3 (0.9-1.3); Prothrombin Time 14.2 SECONDS (9.4-12.5)
[2024-10-09 11:18] LABS: Creatine Kinase 55 U/L (55-170)
[2024-10-09 11:31] LABS: Troponin I 0.020 ng/mL (0.01-0.034)
[2024-10-09] MEDS: FUROSEMIDE 40 MG/4 ML VIAL IV ×2 (11:34→21:37)
[2024-10-09 12:06] LABS: Appearance Urine UA CLEAR; Bilirubin Urine UA NEGATIVE (NEGATIVE); Color Urine UA YELLOW; Glucose Urine UA NEGATIVE (Negative); Ketones Urine UA NEGATIVE (NEGATIVE); Leukocyte Esterase Urine UA NEGATIVE (NEGATIVE); Nitrite Urine UA NEGATIVE (Negative); Occult Blood Urine UA NEGATIVE (Negative); Protein Urine UA TRACE (Negative); Specific Gravity Urine UA 1.020 (1.000-1.035); Urobilinogen Urine UA 0.2 E.U./dL (0.2); pH Urine UA 5.5 (4.5-8.0)
[2024-10-09 12:14] LABS: Culture Indicated Urine Cult Not Indicated
[2024-10-09 12:41] LABS: Alanine Aminotransferase 16 IU/L (<50); Albumin 4.0 g/dL (3.5-5.0); Albumin Globulin Ratio 1.1 (1.0-2.8); Alkaline Phosphatase 146 U/L (38-126); Blood Urea Nitrogen 41 mg/dL (9-20); Calcium 9.2 mg/dL (8.4-10.2); Carbon Dioxide 25 mmol/L (22-32); Chloride 111 mmol/L (98-107); Estimated Glomerular Filt Rate 54 mL/min (>60); Globulin 3.5 g/dL (1.7-4.1); Glucose 94 mg/dL (70-99); HEMOLYSIS < 15 (0-50); Potassium 4.9 mmol/L (3.4-5.1); Sodium 144 mmol/L (137-145); Total Protein 7.5 g/dL (6.3-8.2)
[2024-10-09 12:50] LABS: NT-proBNP (BNP-Adult 18+) 2640 pg/mL (<450)
--- NOTE | 2024-10-09 15:35 | PM.HP.1 ---
History of Present Illness History of Present Illness Chief complaint: Short of Breath, weakness Narrative: The patient was a 74-year-old male who presents with a progressive shortness a breath, and weakness. He has become bed-bound over the last day or 2 because of inability to stand up. EMS was called and at the ER he was found to be hypoxemic and have pulmonary edema on chest x-ray. He was placed on oxygen and given IV Lasix. He did diuresing improved. He came off from oxygen prior to coming up stairs. He denies pedal edema but has had orthopnea. He also uses CPAP chronically at night. He was a known history of systolic heart failure, due to a nonischemic cardiomyopathy. He had a left heart catheterization in 2014 with no obstructive CAD. EF has been as low as 20% with his most recent being 45%. He also has history of complete heart block with torsade de pointes and cardiac arrest in 2022. He was treated with an ICD. He would in addition, he was permanent atrial fibrillation and is on Eliquis as well as severe mitral regurgitation. Other medical issues include remote pulmonary embolism,, tracheocutaneous fistula history, pulmonary hypertension, CAROL, GERD, obesity, and anemia. He lives with his in [place]. He was full resuscitation but only once a short effort of less than 10 minutes. [facility] Medical History History of urinary retention Elevated serum creatinine History of sepsis History of kidney stones Urine retention History of pulmonary hypertension Presence of IVC filter Morbid obesity with BMI of 50.0-59.9, adult Pulmonary edema (06/2022) Peripheral neuropathy BPH (benign prostatic hyperplasia) GERD (gastroesophageal reflux disease) Thrombocytopenia Nonischemic cardiomyopathy Severe muscle deconditioning Acute respiratory failure with hypoxia Acute on chronic systolic heart failure Pneumonia Acute hypoxemic respiratory failure Pneumonia Vision disorder Hearing loss Sleep apnea (~1989) Fractures (~1989) Foot pain (~1989) Chronic back pain (~2009) Measles (~1959) Chicken pox (~1959) Irritable bowel syndrome (~2014) Low testosterone (~1989) Deep vein thrombosis (~1989) Atrial fibrillation (~2014) Surgical History Status post implantation of mitral valve leaflet clip (06/10/23) AICD (automatic cardioverter/defibrillator) present (06/13/22) Anesthesia History of back surgery History of tonsillectomy History of surgery (~2015) [place] filter in place (~1992) Social History household members: spouse alcohol intake: current Meds Home Medications and Allergies Home Medications ?Medication ?Instructions ?Recorded ?Confirmed ?Type multivitamin with minerals-folic 1 tab PO DAILY 02/17/22 05/23/24 History acid 0.4 mg tablet apixaban 5 mg tablet (Eliquis) See Rx Instructions .Route 04/27/23 05/23/24 Rx .COMPLEX #180 tabs epinephrine 0.3 mg/0.3 mL 0.3 mg IM ONCE 09/11/23 05/23/24 History injection, auto-injector lactobacillus combination no.9 4 4,000 mmu cells PO DAILY 09/11/23 05/23/24 History billion cell capsule (Adult 50 Plus Probiotic) melatonin 10 mg capsule 10 mg PO BEDTIME PRN 09/11/23 05/23/24 History Disabled Parking See Rx Instructions .Route 10/10/23 05/23/24 Rx .COMPLEX #365 days sacubitril 24 mg-valsartan 26 mg 1 tab PO BID #180 tabs 12/04/23 05/23/24 Rx tablet (Entresto) spironolactone 25 mg tablet 12.5 mg (1/2 x 25 mg) PO DAILY PRN 02/14/24 05/23/24 Rx Held on 05/09/24. chf #30 tabs Instructions: For hyperK per Cardiology cyclobenzaprine 5 mg tablet 5 mg PO TID PRN muscle spasm #60 03/22/24 05/23/24 Rx tabs metoprolol succinate 25 mg mg PO DAILY 05/09/24 05/23/24 History tablet,extended release 24 hr hydrocodone 5 mg-acetaminophen 325 1 tab PO Q4-6H PRN pain #15 tabs 05/16/24 05/23/24 Rx mg tablet Electric wheelchair #1 ea 05/22/24 05/23/24 Rx oxycodone 5 mg tablet 5 mg PO Q6H PRN pain #14 tabs 07/03/24 Rx tamsulosin 0.4 mg capsule 0.8 mg (2 x 0.4 mg) PO DAILY #180 07/23/24 Rx caps pantoprazole 40 mg tablet,delayed 40 mg PO DAILY #90 tabs 09/16/24 Rx release gabapentin 300 mg capsule See Rx Instructions .Route 09/23/24 Rx .COMPLEX #270 caps Allergies Allergy/AdvReac Type Severity Reaction Status Date / Time latex (LATEX) Allergy Intermediate Rash Verified 07/03/24 10:26 nitrofurantoin AdvReac Severe Diarrhea Verified 07/03/24 10:26 MULTIPLE FOOD ALLERGIES Allergy Intermediate STOMACH Uncoded 05/23/24 15:06 CRAMPS,DIARRHEA Review of Systems Review of Systems Narrative: All else reviewed and otherwise unremarkable except as noted in the history and physical. Exam Vital Signs (past 8 hours): - 10/09/24 08:40 10/09/24 08:43 10/09/24 08:47 Temperature 98.0 F Pulse Rate 69 69 73 Respiratory Rate 21 21 21 Blood Pressure 130/64 Pulse Oximetry 100 98 97 Oxygen Delivery Method Nasal Cannula Nasal Cannula Nasal Cannula Oxygen Flow Rate 2 2 2 10/09/24 08:47 10/09/24 09:00 10/09/24 09:00 Temperature Pulse Rate 69 Respiratory Rate 19 Blood Pressure 130/64 131/60 Pulse Oximetry 98 Oxygen Delivery Method Nasal Cannula Oxygen Flow Rate 2 10/09/24 09:30 10/09/24 09:46 10/09/24 09:46 Temperature Pulse Rate 69 69 Respiratory Rate 20 21 Blood Pressure 112/70 Pulse Oximetry 98 97 Oxygen Delivery Method Nasal Cannula Oxygen Flow Rate 2 10/09/24 10:00 10/09/24 10:00 10/09/24 10:30 Temperature Pulse Rate 69 70 Respiratory Rate 20 23 Blood Pressure 110/59 L Pulse Oximetry 95 Oxygen Delivery Method Nasal Cannula Oxygen Flow Rate 2 10/09/24 10:35 10/09/24 10:35 10/09/24 11:00 Temperature Pulse Rate 70 71 Respiratory Rate 24 20 Blood Pressure 131/75 Pulse Oximetry 96 97 Oxygen Delivery Method Nasal Cannula Nasal Cannula Oxygen Flow Rate 2 2 10/09/24 11:00 10/09/24 11:30 10/09/24 11:30 Temperature Pulse Rate 69 Respiratory Rate 20 Blood Pressure 121/65 131/64 Pulse Oximetry 91 Oxygen Delivery Method Room Air Oxygen Flow Rate 10/09/24 12:00 10/09/24 12:01 10/09/24 12:01 Temperature Pulse Rate 70 71 Respiratory Rate 26 H 23 Blood Pressure 125/67 Pulse Oximetry Oxygen Delivery Method Oxygen Flow Rate 10/09/24 12:30 10/09/24 12:30 10/09/24 13:00 Temperature Pulse Rate 70 69 Respiratory Rate 19 18 Blood Pressure 131/70 Pulse Oximetry 91 Oxygen Delivery Method Room Air Oxygen Flow Rate 10/09/24 13:00 10/09/24 13:30 10/09/24 13:30 Temperature Pulse Rate 71 Respiratory Rate 17 Blood Pressure 130/73 126/62 Pulse Oximetry 92 Oxygen Delivery Method Room Air Oxygen Flow Rate 10/09/24 14:00 10/09/24 14:00 Temperature Pulse Rate 72 Respiratory Rate 21 Blood Pressure 125/77 Pulse Oximetry 91 Oxygen Delivery Method Room Air Oxygen Flow Rate Oxygen Delivery Method Room Air Oxygen Flow Rate 2 Narrative Exam Narrative: NAD, alert and oriented, fluent speech, calm. He was slightly slow to answer questions and appears somewhat apprehensive. Normocephalic skull, EOMI, anicteric sclera, symmetric pupils. Oropharynx unremarkable, no droop. Neck supple, midline trachea, no adenopathy. Lungs clear, normal rate and effort. Heart regular, no murmur gallop or rub. Abdomen is soft, non distended and non tender. Extremities are with 1+ bilateral edema. Skin is free of rash or lesions. Joints are not swollen or deformed. Judgment appears to be normal. Objective ECG Impression: Intervals [place] Rate: 69 P: VT: QRS: 114 QRSD: 158 T: 45 QT: 456 QTc: 488 Interpretive Statements Ventricular-paced rhythm Biventricular pacemaker detected Imaging CT scan - chest: Radiologist's impression: 1. No acute pulmonary emboli. 2. Significant interval increase in the size of the ascending aorta, previously 4.0 cm and currently 4.6 cm. 3. Congestive heart failure exacerbation with early alveolar edema. 4. Four-chamber cardiomegaly. Labs 10/09/24 08:45 10/09/24 12:20 Labs: Laboratory Results - last 24 hr 10/09/24 10/09/24 10/09/24 08:45 09:54 10:16 WBC 3.6 L RBC 3.28 L Hgb 10.7 L Hct 32.1 L MCV 97.9 MCH 32.6 MCHC 33.3 RDW 15.5 H Plt Count 220 Neut % (Auto) 67.3 Lymph % (Auto) 17.9 L [place] % (Auto) 12.1 Eos % (Auto) 2.2 Baso % (Auto) 0.5 Neut # (Auto) 2400 Lymph # (Auto) 600 L [place] # (Auto) 400 Eos # (Auto) 100 Baso # (Auto) 0 PT 14.2 H INR 1.3 VBG pH 7.33 VBG pCO2 49.4 VBG pO2 48 H VBG HCO3 26 VBG Total CO2 25 VBG O2 Saturation 80 H VBG Base Excess -0.6 L Sodium Potassium Chloride Carbon Dioxide BUN Creatinine Estimated GFR BUN/Creatinine Ratio Glucose Lactate 1.6 Calcium Total Bilirubin AST ALT Alkaline Phosphatase Total Creatine Kinase 55 Troponin I 0.020 NT-Pro-B Natriuret Pep Total Protein Albumin Globulin Albumin/Globulin Ratio Procalcitonin 0.074 Urine Color Urine Appearance Urine pH Ur Specific [place] Urine Protein Urine Glucose (UA) Urine Ketones Urine Occult Blood Urine Nitrate Urine Bilirubin Urine Urobilinogen Ur Leukocyte Esterase Urine RBC Urine WBC Ur Squamous Epith Cells Urine Bacteria Ur Culture Indicated? Vol Urine Centrifuged SARS-CoV-2 (PCR) Negative Influenza A (RT-PCR) Flu a negative Influenza B (RT-PCR) Flu b negative RSV (PCR) Negative 10/09/24 10/09/24 11:22 12:20 WBC RBC Hgb Hct MCV MCH MCHC RDW Plt Count Neut % (Auto) Lymph % (Auto) [place] % (Auto) Eos % (Auto) Baso % (Auto) Neut # (Auto) Lymph # (Auto) [place] # (Auto) Eos # (Auto) Baso # (Auto) PT INR VBG pH VBG pCO2 VBG pO2 VBG HCO3 VBG Total CO2 VBG O2 Saturation VBG Base Excess Sodium 144 Potassium 4.9 Chloride 111 H Carbon Dioxide 25 BUN 41 H Creatinine 1.36 H Estimated GFR 54 L BUN/Creatinine Ratio 30.1 H Glucose 94 Lactate Calcium 9.2 Total Bilirubin 0.8 AST 32 ALT 16 Alkaline Phosphatase 146 H Total Creatine Kinase Troponin I Cancelled NT-Pro-B Natriuret Pep 2640 H Total Protein 7.5 Albumin 4.0 Globulin 3.5 Albumin/Globulin Ratio 1.1 Procalcitonin Urine Color Yellow Urine Appearance Clear Urine pH 5.5 Ur Specific [place] 1.020 Urine Protein Trace H Urine Glucose (UA) Negative Urine Ketones Negative Urine Occult Blood Negative Urine Nitrate Negative Urine Bilirubin Negative Urine Urobilinogen 0.2 Ur Leukocyte Esterase Negative Urine RBC None seen Urine WBC 1-5/hpf Ur Squamous Epith Cells 0-1 /hpf Urine Bacteria None seen Ur Culture Indicated? Cult not indicated Vol Urine Centrifuged 10ml (spun) SARS-CoV-2 (PCR) Influenza A (RT-PCR) Influenza B (RT-PCR) RSV (PCR) Assessment & Plan Assessment & Plan narrative: 1. Acute hypoxic respiratory failure, present on admission and improving. 2. Acute on chronic systolic heart failure, active. 3. Nonischemic cardiomyopathy, active. 4. Permanent atrial fibrillation, stable. 5. Dilated ascending aorta, stable. 6. ICD pacemaker implant, stable. 7. Pulmonary hypertension, stable. 8. Remote pulmonary embolism, stable. On chronic anticoagulation for this and atrial fibrillation. 9. Morbid obesity with BMI 40, active. Plan: -we will diurese over the next 24 hours and monitor his status. -PT evaluation to see how debilitated he was. -we will monitor electrolytes. -CPAP at night. -he was already off oxygen. Full code, limited effort of 10 minutes or less. Anticipate 2 midnights in the hospital, supports inpatient status. His is his proxy decision maker. He lives in [place] Time-Based Coding :: 35 min spent with patient and on the chart (including review of chart, obtaining history, exam, reviewing outside data, placing orders, documenting exam and treatment plan, and counseling patient) on 10/09. Quality MIPS - Admit I confirm the patient?s Advance Care Plan is present, Code status is documented, Surrogate decision maker is in patient?s record [If Yes, STOP here]: Yes MIPS - Meds 'Current medications' to include all prescriptions, [id number] products, herbals, cannabis/cannabidiol products, and vitamin/mineral/dietary (nutritional) supplements. I have utilized all available resources to obtain, update, or review the patient?s current medications. [If Yes, STOP here]: Yes
[2024-10-09] MEDS: APIXABAN 5 MG TABLET PO (21:38)
[2024-10-09] MEDS: MELATONIN 3 MG TABLET 9 MG PO (21:38)
[2024-10-09] MEDS: LACTOBACILLUS ACIDOPHILUS TABLET 1 EACH PO (21:38)
[2024-10-09] MEDS: GABAPENTIN 300 MG CAPSULE 600 MG PO (21:38)
[2024-10-10 01:00] VITALS: BP 115/68; PULSE 97; RESP 18; TEMP 35.8; O2SAT 97
[2024-10-10 05:41] LABS: Hematocrit 30.0 % (41-53); Hemoglobin 10.2 g/dL (13.5-17.5); Mean Corpuscular HGB Conc 34.1 % (30-36); Mean Corpuscular Hemoglobin 32.7 PG (26-34); Mean Corpuscular Volume 96.1 fL (80-100); Platelet Count 215 X10^3/uL (150-400)
[2024-10-10 06:00] LABS: Blood Urea Nitrogen 38 mg/dL (9-20); Calcium 9.5 mg/dL (8.4-10.2); Carbon Dioxide 33 mmol/L (22-32); Chloride 105 mmol/L (98-107); Estimated Glomerular Filt Rate 50 mL/min (>60); Glucose 90 mg/dL (70-99); HEMOLYSIS < 15 (0-50); Potassium 4.1 mmol/L (3.4-5.1); Sodium 142 mmol/L (137-145)
[2024-10-10 06:14] LABS: Magnesium 1.8 mg/dL (1.6-2.3)
--- NOTE | 2024-10-10 07:11 | PC.WOUNDPHOT ---
LLQ Abd L thigh L sole of foot R medial great toe Scrotum (posterior view) L forearm
[2024-10-10] MEDS: FUROSEMIDE 40 MG/4 ML VIAL IV ×2 (07:38→16:33)
[2024-10-10 08:33] VITALS: BP 122/73; PULSE 70; RESP 18; TEMP 36.4; O2SAT 97
--- NOTE | 2024-10-10 08:47 | P.PN_ITS ---
Subjective Subjective Interval history: Summary: 74-year-old male with a history of chronic systolic heart failure, AF, and nonischemic cardiomyopathy presented with progressive dyspnea and weakness. He was found to be hypoxic in the ED and imaging suggested pulmonary edema. He improved with Lasix. He lives at home with his . He was so weak he was unable to get out of bed at the time of admission. S: He was not short of breath today but is still very weak. His is at the bedside. Does have a baseline unstable gait and uses a walker to ambulate. His notes recent dietary indiscretion with salami which may have contributed to his acute volume overload. Exam Vital Signs (past 8 hours): - 10/10/24 01:00 10/10/24 08:33 Temperature 96.5 F L 97.5 F L Pulse Rate 97 H 70 Respiratory Rate 18 18 Blood Pressure 115/68 122/73 Pulse Oximetry 97 97 Oxygen Flow Rate 0 0 Oxygen Delivery Method Room Air Oxygen Flow Rate 0 Narrative Exam Narrative: NAD, alert and oriented. Fluent speech. Lungs are clear, normal rate and effort. Heart is regular, no murmur gallop or rub. Abdomen is soft, non distended. Extremities are free of edema. Objective ECG Impression: Intervals [place] Rate: 69 P: MT: QRS: 114 QRSD: 158 T: 45 QT: 456 QTc: 488 Interpretive Statements Ventricular-paced rhythm Biventricular pacemaker detected Imaging CT scan - chest: Radiologist's impression: 1. No acute pulmonary emboli. 2. Significant interval increase in the size of the ascending aorta, previously 4.0 cm and currently 4.6 cm. 3. Congestive heart failure exacerbation with early alveolar edema. 4. Four-chamber cardiomegaly. Labs 10/10/24 05:00 10/10/24 05:00 Labs: Laboratory Results - last 24 hr 10/09/24 10/09/24 10/09/24 08:45 09:54 10:16 WBC 3.6 L RBC 3.28 L Hgb 10.7 L Hct 32.1 L MCV 97.9 MCH 32.6 MCHC 33.3 RDW 15.5 H Plt Count 220 Neut % (Auto) 67.3 Lymph % (Auto) 17.9 L [place] % (Auto) 12.1 Eos % (Auto) 2.2 Baso % (Auto) 0.5 Neut # (Auto) 2400 Lymph # (Auto) 600 L [place] # (Auto) 400 Eos # (Auto) 100 Baso # (Auto) 0 PT 14.2 H INR 1.3 VBG pH 7.33 VBG pCO2 49.4 VBG pO2 48 H VBG HCO3 26 VBG Total CO2 25 VBG O2 Saturation 80 H VBG Base Excess -0.6 L Sodium Potassium Chloride Carbon Dioxide BUN Creatinine Estimated GFR BUN/Creatinine Ratio Glucose Lactate 1.6 Calcium Magnesium Total Bilirubin AST ALT Alkaline Phosphatase Total Creatine Kinase 55 Troponin I 0.020 NT-Pro-B Natriuret Pep Total Protein Albumin Globulin Albumin/Globulin Ratio Procalcitonin 0.074 Urine Color Urine Appearance Urine pH Ur Specific [place] Urine Protein Urine Glucose (UA) Urine Ketones Urine Occult Blood Urine Nitrate Urine Bilirubin Urine Urobilinogen Ur Leukocyte Esterase Urine RBC Urine WBC Ur Squamous Epith Cells Urine Bacteria Ur Culture Indicated? Vol Urine Centrifuged SARS-CoV-2 (PCR) Negative Influenza A (RT-PCR) Flu a negative Influenza B (RT-PCR) Flu b negative RSV (PCR) Negative 10/09/24 10/09/24 10/10/24 11:22 12:20 05:00 WBC 4.0 L RBC 3.12 L Hgb 10.2 L Hct 30.0 L MCV 96.1 MCH 32.7 MCHC 34.1 RDW 15.3 H Plt Count 215 Neut % (Auto) Lymph % (Auto) [place] % (Auto) Eos % (Auto) Baso % (Auto) Neut # (Auto) Lymph # (Auto) [place] # (Auto) Eos # (Auto) Baso # (Auto) PT INR VBG pH VBG pCO2 VBG pO2 VBG HCO3 VBG Total CO2 VBG O2 Saturation VBG Base Excess Sodium 144 142 Potassium 4.9 4.1 Chloride 111 H 105 Carbon Dioxide 25 33 H BUN 41 H 38 H Creatinine 1.36 H 1.46 H Estimated GFR 54 L 50 L BUN/Creatinine Ratio 30.1 H 26.0 H Glucose 94 90 Lactate Calcium 9.2 9.5 Magnesium 1.8 Total Bilirubin 0.8 AST 32 ALT 16 Alkaline Phosphatase 146 H Total Creatine Kinase Troponin I Cancelled NT-Pro-B Natriuret Pep 2640 H Total Protein 7.5 Albumin 4.0 Globulin 3.5 Albumin/Globulin Ratio 1.1 Procalcitonin Urine Color Yellow Urine Appearance Clear Urine pH 5.5 Ur Specific [place] 1.020 Urine Protein Trace H Urine Glucose (UA) Negative Urine Ketones Negative Urine Occult Blood Negative Urine Nitrate Negative Urine Bilirubin Negative Urine Urobilinogen 0.2 Ur Leukocyte Esterase Negative Urine RBC None seen Urine WBC 1-5/hpf Ur Squamous Epith Cells 0-1 /hpf Urine Bacteria None seen Ur Culture Indicated? Cult not indicated Vol Urine Centrifuged 10ml (spun) SARS-CoV-2 (PCR) Influenza A (RT-PCR) Influenza B (RT-PCR) RSV (PCR) [facility] Medical History History of urinary retention Elevated serum creatinine History of sepsis History of kidney stones Urine retention History of pulmonary hypertension Presence of IVC filter Morbid obesity with BMI of 50.0-59.9, adult Pulmonary edema (06/2022) Peripheral neuropathy BPH (benign prostatic hyperplasia) GERD (gastroesophageal reflux disease) Thrombocytopenia Nonischemic cardiomyopathy Severe muscle deconditioning Acute respiratory failure with hypoxia Acute on chronic systolic heart failure Pneumonia Acute hypoxemic respiratory failure Pneumonia Vision disorder Hearing loss Sleep apnea (~1989) Fractures (~1989) Foot pain (~1989) Chronic back pain (~2009) Measles (~1959) Chicken pox (~1959) Irritable bowel syndrome (~2014) Low testosterone (~1989) Deep vein thrombosis (~1989) Atrial fibrillation (~2014) Surgical History Status post implantation of mitral valve leaflet clip (06/10/23) AICD (automatic cardioverter/defibrillator) present (06/13/22) Anesthesia History of back surgery History of tonsillectomy History of surgery (~2015) [place] filter in place (~1992) Social History household members: spouse Smoking Status: Never smoker alcohol intake: current Assessment & Plan Assessment & Plan narrative: 1. Acute hypoxic respiratory failure, present on admission and improving. 2. Acute on chronic systolic heart failure, active. 3. Nonischemic cardiomyopathy, active. 4. Permanent atrial fibrillation, stable. 5. Dilated ascending aorta, stable. 6. ICD pacemaker implant, stable. 7. Pulmonary hypertension, stable. 8. Remote pulmonary embolism, stable. On chronic anticoagulation for this and atrial fibrillation. 9. Morbid obesity with BMI 40, active. Plan: -continue IV Lasix over the next 24 hours and monitor his status. -PT evaluation to see how debilitated he is. -we will monitor electrolytes. -CPAP at night. ANTHONY: 10/11 ( vs SNF) Full code, limited effort of 10 minutes or less. Needs a 2nd night in the hospital for ongoing diuresis and physical therapy evaluation. Time-Based Coding :: [TOTAL MINUTES] spent with patient and on the chart (including review of chart, obtaining history, exam, reviewing outside data, placing orders, documenting exam and treatment plan, and counseling patient) on [DATE]. Quality VTE Deep Vein Thrombosis/Pulmonary Embolism Present on Admission: No
[2024-10-10] MEDS: METOPROLOL ER 25 MG TABLET PO (09:49)
[2024-10-10] MEDS: APIXABAN 5 MG TABLET PO ×2 (09:49→22:00)
[2024-10-10] MEDS: LACTOBACILLUS ACIDOPHILUS TABLET 1 EACH PO ×2 (09:50→22:02)
[2024-10-10] MEDS: MULTIVITAMIN 1 TABLET 1 TAB PO (09:50)
[2024-10-10] MEDS: AMIODARONE 200 MG TABLET PO (09:50)
[2024-10-10] MEDS: ACETAMINOPHEN 325 MG TABLET 650 MG PO (09:50)
[2024-10-10] MEDS: TAMSULOSIN 0.4 MG CAPSULE 0.8 MG PO (09:51)
[2024-10-10] MEDS: GABAPENTIN 300 MG CAPSULE PO (09:51)
[2024-10-10 10:38] VITALS: PULSE 71
[2024-10-10] MEDS: SACUBITRIL VALSARTAN 1 EACH PO (11:06)
--- NOTE | 2024-10-10 12:18 | PT.IIE ---
Current Diagnoses Acute on chronic systolic (congestive) heart failure (10/09/24) Surgical History (Last Reviewed 10/09/24 @ 15:39 by Solomon Alcantara MD) AICD (automatic cardioverter/defibrillator) present (06/13/22) Anesthesia Mehdi filter in place (~1992) History of back surgery History of surgery (~2015) History of tonsillectomy Status post implantation of mitral valve leaflet clip (06/10/23) Medical History (Last Reviewed 10/09/24 @ 15:39 by Solomon Alcantara MD) Acute hypoxemic respiratory failure Acute on chronic systolic heart failure Acute respiratory failure with hypoxia Atrial fibrillation (~2014) BPH (benign prostatic hyperplasia) Chicken pox (~1959) Chronic back pain (~2009) Deep vein thrombosis (~1989) Elevated serum creatinine Foot pain (~1989) Fractures (~1989) GERD (gastroesophageal reflux disease) Hearing loss History of kidney stones History of pulmonary hypertension History of sepsis History of urinary retention Irritable bowel syndrome (~2014) Low testosterone (~1989) Measles (~1959) Morbid obesity with BMI of 50.0-59.9, adult Nonischemic cardiomyopathy Peripheral neuropathy Pneumonia Pneumonia Presence of IVC filter Pulmonary edema (06/2022) Severe muscle deconditioning Sleep apnea (~1989) Thrombocytopenia Urine retention Vision disorder Physical Therapy Inpatient Evaluation/Re-Eval M1 PT/OT-IP Prior Functional Status Start: 10/10/24 11:57 Freq: NEEDED Status: Active Protocol: Document 10/10/24 11:30 MB (Rec: 10/10/24 12:17 MB Desktop) Medical Review Prior Functional Status Medical History Yes Reviewed Communication Unsure baseline diet, tends to answer most questions Mobility and Gait Mod I with bariatric RW about 20' and also uses manual w/c at home Activities of Daily Paid caregiver assistance for bathing and dressing Living and IADL's daily per Social History Household Members spouse Living Arrangements House Number of Floors ( One Floor Floors) Number of Stairs To No steps to enter Enter/Railing? Home Environment High Toilet,Tub/Shower Home Equipment Front Wheel Walker,Manual Wheelchair,Power Wheelchair/ Scooter,Raised Toilet Seat w/Armrests,Shower Seat without Backrest,Hand Held Shower,Lift Recliner, Hospital Bed,Grab Bars Near Toilet,Grab Bars In Shower Additional Social Walk-in tub History Comment M2 PT-IP Current Condition Start: 10/10/24 11:57 Freq: NEEDED Status: Active Protocol: Document 10/10/24 11:30 MB (Rec: 10/10/24 12:17 MB Desktop) Physical Therapy Current Condition Current Condition Evaluation Date 10/10/24 Treatment Diagnosis CHF M3 PT-IP Subjective Start: 10/10/24 11:57 Freq: NEEDED Status: Active Protocol: Document 10/10/24 11:30 MB (Rec: 10/10/24 12:17 MB Desktop) Subjective Physical Therapy Visit Type Type Initial Evaluation Visit Start Time 11:30 Visit Stop Time 11:47 Number of RIDE OPERATOR Visits 0 M4 PT-IP Mobility and Gait Start: 10/10/24 11:57 Freq: NEEDED Status: Active Protocol: Document 10/10/24 11:30 MB (Rec: 10/10/24 12:17 MB Desktop) PT-Bed Mobility Assessment Rolling Level of Assist Contact Guard Assistance,1 Person Assistance Supine to Sit Supine to Sit Minimal Assistance,1 Person Assistance,Head of Bed Elevated,Bedrails Scooting Scooting to Edge of Maximum Assistance Bed PT-Transfer Assessment Sit to and From Stand Sit to and from Minimal Assistance,2 Person Assistance,Use of Upper Stand Extremities Equipment Transfer Assistive Gait Belt,Front Wheeled Walker Device Transfers Transfer Destination Chair Transfer Technique Stepping Transfer Ability Level of Assist Minimal Assistance,2 Person Assistance,Use of Upper Extremities Comments Mobility Comments Increased encouragement and warm blanket wrapped around bed rail d/t pt c/o plastic bed components hurting his legs, encouragement to keep moving and then PT pulls pad to scoot hips out to EOB For sit to stand, pt tends to push up from the walker rather than the bed when cued and holds walker down, pt uses his bariatric RW that is in the room Gait Assessment Gait Gait Assistance Minimum Assistance,2 Person Assist Required: Distance (Feet) 2 Assistive Devices Assistive Device Gait Belt,Front Wheeled Walker Gait Deviations General Gait Pattern Decreased Stride Length,Decreased Feet Clearance,Flexed Trunk,Step-to Gait,Wide Based Gait Factors Limiting Gait Function Factors Limiting Decreased Sensation,Decreased Strength,Incoordination, Gait Function Limited Range of Motion Comments Gait Comments Pt with history of B LE weakness and critical care induced neuropathy and LLE DVT and reports of weakness and trouble with range and strength PT-Balance Assessment Sitting Balance and Reactions Static Sitting Good Balance Ability Dynamic Sitting Fair Balance Ability Standing Balance and Reactions Static Standing Fair Balance Ability Dynamic Standing Fair Balance Ability Device Used RW M5 PT-IP Objective Assessments Start: 10/10/24 11:57 Freq: NEEDED Status: Active Protocol: Document 10/10/24 11:30 MB (Rec: 10/10/24 12:17 MB Desktop) Orientation Orientation/Cognition Level of Alertness Alert Orientation Name,Birthday,Month,Year,Place Safety Awareness Decreased Safety Awareness Gross Range of Motion Upper Extremity ROM Impairments Defer to OT Lower Extremity ROM Assessment Bilaterally Impaired Strength Lower Extremity Strength Assessment Bilaterally Impaired Comments Strength Comments Very limited B ankle ROM and pt does not follow range or MMT commands Coordination Assessment Gross Coordination Gross Coordination Impaired Sensation Assessment Sensation Gross Sensation Right LE Impaired,Left LE Impaired M6 PT-IP Treatment Start: 10/10/24 11:57 Freq: NEEDED Status: Active Protocol: Document 10/10/24 11:30 MB (Rec: 10/10/24 12:17 MB Desktop) Physical Therapy Treatment Education Education Provided Safety M7 PT-IP Assessment and Plan Start: 10/10/24 11:57 Freq: NEEDED Status: Active Protocol: Document 10/10/24 11:30 MB (Rec: 10/10/24 12:17 MB Desktop) PT Summary Assessment and Plan Potential Rehabilitation Fair Potential Status of Condition Evolving at Evaluation Summary Impairments Pain,ROM,Strength,Balance,Coordination,Sensation,Tone, Bed Mobility,Transfers,Gait,Activity Tolerance Assessment Summary Pt is a 74 y/o male adm with CHF and acute pulmonary changes. He has a complicated medical history including B LE weakness, LLE DVT, increased body mass and non- displaced right femoral fracture in July of 2024 for which he did not receive surgery or PT. states he has been WBAT and the hip did not bother him. Pt requires encouragement for bed mobility and scooting d/ t c/o pain with the hard surfaces of the bed and covered side rail with warm blanket. He gets to EOB with CGA and max A to scoot hips out to EOB. +2 min A for transfer and minimal stepping. Pt and state that they like their home set-up for him and would prefer to d/c back home. Recommend HHPT consult. Goals Bed Mobility Goal Standby Assistance Transfer Goal Standby Assistance,Front Wheeled Walker Gait Goal Standby Assistance,Front Wheel Walker Gait Distance 20 Days to Meet Goals 5 Frequency of Treatment Frequency Of Once a Day Treatment Treatment Plan Physical Therapy Bed Mobility Training,Transfer Training,Gait Training, Treatment Plan Therapeutic Exercise,Balance Retraining,Discharge Planning,Hot or Cold Pack,Neuromuscular Re-ed, Coordination Retraining,Manual Therapy Recommendations To Nursing Amount of Assist 2 Person Assist Needed Discharge Recommendations PT Discharge Home with 24/10 Assist Available,Home Health Recommendations Transportation Needs Private Vehicle,Wheelchair/Cabulance at Discharge - PT assist x1-2
[2024-10-10 12:42] VITALS: BP 126/82; PULSE 69; RESP 22; TEMP 35.9; O2SAT 91
--- NOTE | 2024-10-10 13:48 | OT.IP.EVAL ---
Current Diagnoses Acute on chronic systolic (congestive) heart failure (10/09/24) Past Medical History (Last Reviewed 10/09/24 @ 15:39 by Solomon Alcantara MD) Acute hypoxemic respiratory failure Acute on chronic systolic heart failure Acute respiratory failure with hypoxia Atrial fibrillation (~2014) BPH (benign prostatic hyperplasia) Chicken pox (~1959) Chronic back pain (~2009) Deep vein thrombosis (~1989) Elevated serum creatinine Foot pain (~1989) Fractures (~1989) GERD (gastroesophageal reflux disease) Hearing loss History of kidney stones History of pulmonary hypertension History of sepsis History of urinary retention Irritable bowel syndrome (~2014) Low testosterone (~1989) Measles (~1959) Morbid obesity with BMI of 50.0-59.9, adult Nonischemic cardiomyopathy Peripheral neuropathy Pneumonia Pneumonia Presence of IVC filter Pulmonary edema (06/2022) Severe muscle deconditioning Sleep apnea (~1989) Thrombocytopenia Urine retention Vision disorder Surgical History (Last Reviewed 10/09/24 @ 15:39 by Solomon Alcantara MD) AICD (automatic cardioverter/defibrillator) present (06/13/22) Anesthesia Mehdi filter in place (~1992) History of back surgery History of surgery (~2015) History of tonsillectomy Status post implantation of mitral valve leaflet clip (06/10/23) Occupational Therapy Inpatient Evaluation/Re-Eval M1 PT/OT-IP Prior Functional Status Start: 10/10/24 11:57 Freq: NEEDED Status: Active Protocol: Document 10/10/24 11:30 MB (Rec: 10/10/24 12:17 MB Desktop) Medical Review Prior Functional Status Medical History Yes Reviewed Communication Unsure baseline diet, tends to answer most questions Mobility and Gait Mod I with bariatric RW about 20' and also uses manual w/c at home Activities of Daily Paid caregiver assistance for bathing and dressing Living and IADL's daily per Social History Household Members spouse Living Arrangements House Number of Floors ( One Floor Floors) Number of Stairs To No steps to enter Enter/Railing? Home Environment High Toilet,Tub/Shower Home Equipment Front Wheel Walker,Manual Wheelchair,Power Wheelchair/ Scooter,Raised Toilet Seat w/Armrests,Shower Seat without Backrest,Hand Held Shower,Lift Recliner, Hospital Bed,Grab Bars Near Toilet,Grab Bars In Shower Additional Social Walk-in tub History Comment M1 PT/OT-IP Prior Functional Status Start: 10/10/24 13:23 Freq: NEEDED Status: Active Protocol: Document 10/10/24 12:30 [facility] (Rec: 10/10/24 13:48 [facility] Desktop) Medical Review Prior Functional Status Medical History Yes Reviewed Communication Unsure baseline diet, tends to answer most questions Mobility and Gait Mod I with bariatric RW about 20' and also uses manual w/c at home Activities of Daily Paid caregiver assistance for bathing and dressing Living and IADL's daily per . Pt's does IADl needs, but per pt assist to cook while seated in his wc. Social History Household Members spouse Living Arrangements House Number of Floors ( One Floor Floors) Number of Stairs To No steps to enter Enter/Railing? Home Environment High Toilet,Tub/Shower Home Equipment Front Wheel Walker,Manual Wheelchair,Power Wheelchair/ Scooter,Raised Toilet Seat w/Armrests,Shower Seat without Backrest,Hand Held Shower,Microbiology Lab Manager,Lift Recliner ,Hospital Bed,Grab Bars Near Toilet,Grab Bars In Shower Additional Social Walk-in tub History Comment M2 OT-IP Current Condition Start: 10/10/24 13:23 Freq: Status: Active Protocol: Document 10/10/24 12:30 [facility] (Rec: 10/10/24 13:48 [facility] Desktop) Occupational Therapy Current Condition Current Condition Evaluation Date 10/10/24 Treatment Diagnosis Acute hypoxic respiratory failure Diagnosis Onset Date 10/09/24 M3 OT- IP Subjective and Pain Start: 10/10/24 13:23 Freq: Status: Active Protocol: Document 10/10/24 12:30 [facility] (Rec: 10/10/24 13:48 [facility] Desktop) OT- Subjective Occupational Therapy Visit Type Type Initial Evaluation Visit Start Time 12:30 Visit Stop Time 13:08 Occupational Therapy Visit Comments Patient Comments Pt eating lunch but agree to work with OT. Patient/Caregiver TO go home. Goals OT Pain Assessment Pain When Pain Assessed At Rest Pain Present Pain Present Denied Pain M4 OT- IP ADL's Start: 10/10/24 13:23 Freq: Status: Active Protocol: Document 10/10/24 12:30 [facility] (Rec: 10/10/24 13:48 [facility] Desktop) OT [id number] General Evaluation Self-Feeding Ability Independent OT ADL-Grooming Comments OT Grooming Comments Not performed. OT ADL-Oral Care Comments Oral Care Comments Not performed. OT ADL-Dressing Comments OT Dressing Comments Pt has compression stocking at home and states hopefully his to bring them in. Pt gets assist but able to educated that there are devices to assist him if he is ever interested to do it on his own. OT ADL-Toileting Comments OT Toileting Pt states prior able do toileting on his own and has a Comments BSC at home. OT ADL-Bathing Comments OT Bathing Comments Pt has a walk in tub. Pt states has figured out with his caregiver to get up sinking a cushion down in the water to sit on so easier to stand. M5 OT- IP IADL's Start: 10/10/24 13:23 Freq: Status: Active Protocol: Document 10/10/24 12:30 [facility] (Rec: 10/10/24 13:48 [facility] Desktop) OT-Instrumental Activities of Daily Living Home Safety Awareness Awareness of Need Good Awareness for Assistance at Home Ability to Problem Able to Problem Solve Solve Emergency Situations Medication Management Medication Caregiver Administers Management Money Management Money Management Caregiver Provides Assistance Meal Preparation Meal Preparation Caregiver Provides Assist Hair Mixer Hair Mixer Caregiver Provides Assist M6 OT- IP Functional Cognition Start: 10/10/24 13:23 Freq: Status: Active Protocol: Document 10/10/24 12:30 [facility] (Rec: 10/10/24 13:48 [facility] Desktop) Cognitive Factors Limiting Selfcare Function Cognitive Ability Level of Alertness Alert Patient Orientation Name,Age,Birthday,Month,Date,Year,Day of Week,Place, Situation Attention Span Capable of Focused Attention,Capable of Sustained Ability Attention Ability to Follow Able to Follow One Step Commands Commands Cognitive Comments Cognitive Assessment Pt able to follow commands for ADL and mobility needs.Able to go over energy conservation techniques with pt. Comments OT- Vision and Hearing OT- Hearing Assessment OT- Hearing WFL Assessment OT- Vision Assessment Visual Acuity Glasses All The Time Visual Attentiveness WFL Occular Pursuits WFL M7 OT- IP Mobility and Balance Start: 10/10/24 13:23 Freq: Status: Active Protocol: Document 10/10/24 12:30 [facility] (Rec: 10/10/24 13:48 [facility] Desktop) OT- Bed Mobility Assessment Sit to Supine Sit to Supine Assist Standby Assistance OT-Transfer Assessment Sit to and From Stand Sit to and from Moderate Assistance,Maximum Assistance,1 Person Stand Assistance Transfers Transfer Ability Minimal Assistance Technique Transfer Destination Bed,Chair Transfer Technique Stand Step Pivot Devices Transfer Assistive Gait Belt,Front Wheeled Walker Devices Comments Mobility Comments Pt MOD/MAXA to stand and JESS after standing to transfer back to the bed. Pt able to pull himself up to the head of the bed after tilted. OT- Balance Assessment Sitting Balance and Reactions Static Sitting Good Balance Ability Dynamic Sitting Good Balance Ability Standing Balance and Reactions Static Standing Fair Balance Ability Dynamic Standing Fair Balance Ability M8 OT- IP Objective Assessments Start: 10/10/24 13:23 Freq: Status: Active Protocol: Document 10/10/24 12:30 [facility] (Rec: 10/10/24 13:48 [facility] Desktop) OT Gross Range of Motion Upper Extremity Range of Motion Assessment Bilaterally Impaired ROM Impairments Decrease at end ROM. Pt has tightness in internal rotator. Able to go over stretches with pt and able to improve his ROM. OT Strength Upper Extremity Strength Assessment Bilaterally Impaired Comments Strength Comments BUE strength 4-/5 to 4+/5. M9 OT- IP Assessment and Plan Start: 10/10/24 13:23 Freq: Status: Active Protocol: Document 10/10/24 12:30 [facility] (Rec: 10/10/24 13:48 [facility] Desktop) OT Summary Assessment and Plan Potential Rehabilitation Good Potential Analytic Complexity Moderate at Evaluation Summary OT Impairments Range of Motion,Strength,Balance,Functional Mobility, Grooming,Dressing,Toileting,Toilet Transfers,Shower Transfers,Activity Tolerance Progress Towards Progressing Toward Goals Goals Assessment Summary Pt MOD complexity and main barriers are decreased activity tolerance, strength, and needing more assist with ADl and mobility needs at this time due acute hypoxic respiratory failure. Pt to go home with assist when medically stable and have home health. Pt does have caregivers 5x/days for 4 hours at a time to assist with bathing, dressing, and IADL needs. Goals Self-Feeding Goal Independent Grooming Goal Independent Dressing Goal Moderate Assistance Toileting Goal Independent Toilet Transfer Goal Independent Days to Meet Goals 38 Frequency of Treatment Other frequency 5x/week Treatment Plan OT Treatment Plan ADL Training,Functional Mobility,Patient/Family Education,Discharge Planning Other Treatment Pt to be able to use the BSC with CGA with FWW. Recommendations and Next Treatment Focus Discharge Recommendations OT Discharge Home with 24/7 Assist Available,Home Health Recommendations Transportation Needs Private Vehicle at Discharge
--- NOTE | 2024-10-10 15:36 | CM.DANOTE ---
Initial DCP Assessment Note Pt is a 74 yo male, resident of [place], admitted for management of CHF exacerbation with resp failure. PT= Home w/HH. PCP: Matt Lopez Payer: [facility] Reviewed chart, met w/patient and spouse. Patient has 4 hours of care giving from [facility] daily. Spouse there otherwise to assist patient as needed. Patient needs help with most ADLs to some extent, patient can walk with a walker although is mostly wheelchair dependent. Patient with hx at [facility]. Discussed home health and patient/sp agreeable, [facility] preferred. Email sent to Jonathan and Shekhar at [facility] with F2F, HH order and clinical notes that were available. plan: Discharge home w/sp and [facility] is anticipated. SW team following closely for coordination. PADDY Olmos Discharge Planning/Care Management CM Discharge Assessment Start: 10/09/24 14:17 Freq: Status: Active Protocol: Document 10/10/24 15:27 ANNA (Rec: 10/10/24 15:36 ANNA [id number]) Discharge Planning Assessment Assigned Discharge PADDY Guzman Field Captain DPOA/Assigned Kennedi Duarte, spouse Designee Name Contact Information [phone] Advance Directives? Yes Advance Directives No on File History Provided By Patient,Medical Record Prior Living House Arrangements Household Members spouse Type of Relies on Others transporation used prior to admit Independent with ADL No 's Is patient alert and Yes oriented? Needs Assistance Bathing,Grooming,Meal Prep,Toileting,Managing With Medications,Home Chores / Shopping Comment Pt mostly wheelchair bound Patient/Family Home with Home Health Preference Comment Preference for [facility] Barriers to No Discharge Comment PT=Home w/HH Discharge Plan Home Transportation Spouse POV Arrangement Referrals Initiated Home Health Additional Comment Pt does pay privately for caregivers- [facility]/HH Preference [facility] Has Agency SNF been Yes contacted
[2024-10-10 18:00] VITALS: BP 132/85; PULSE 70; RESP 18; TEMP 36.2; O2SAT 91
[2024-10-10] MEDS: GABAPENTIN 300 MG CAPSULE 600 MG PO (22:00)
[2024-10-11] VITALS (7 sets, daily range): BP systolic 101–134; BP diastolic 68–90; PULSE 70–74; RESP 15–19; TEMP 35.6–36; O2SAT 93–96
[2024-10-11 05:21] LABS: Hematocrit 31.0 % (41-53); Hemoglobin 10.7 g/dL (13.5-17.5); Mean Corpuscular HGB Conc 34.3 % (30-36); Mean Corpuscular Hemoglobin 32.9 PG (26-34); Mean Corpuscular Volume 95.7 fL (80-100); Platelet Count 244 X10^3/uL (150-400)
[2024-10-11 05:36] LABS: Blood Urea Nitrogen 43 mg/dL (9-20); Calcium 9.5 mg/dL (8.4-10.2); Carbon Dioxide 35 mmol/L (22-32); Chloride 100 mmol/L (98-107); Estimated Glomerular Filt Rate 46 mL/min (>60); Glucose 96 mg/dL (70-99); HEMOLYSIS < 15 (0-50); Potassium 4.2 mmol/L (3.4-5.1); Sodium 139 mmol/L (137-145)
[2024-10-11] MEDS: FUROSEMIDE 40 MG/4 ML VIAL IV (07:01)
--- NOTE | 2024-10-11 07:43 | PM.PN.1 ---
Subjective Subjective Date Patient Seen: 10/11/24 Interval history: His creatinine is relatively stable at 1.56. The hemoglobin aditya from 10.2 up to 10.7. He has caregivers 4 hours a day already at home. He is fully oriented, quite tired. He tells me that he lives with his and follows with Dr. Lopez for PCP. Exam Vital Signs (past 8 hours): - 10/11/24 00:00 Temperature 96.6 F L Pulse Rate 72 Respiratory Rate 18 Blood Pressure 106/71 Pulse Oximetry 93 Oxygen Flow Rate 0 Oxygen Delivery Method Room Air Oxygen Flow Rate 0 Narrative Exam Narrative: Oriented x3. Quite fatigued appearing. Heart regular rate and rhythm without murmur. Lungs clear to auscultation bilaterally. Extremities have no ankle edema. Objective Labs 10/11/24 04:36 10/11/24 04:36 Labs: Laboratory Results - last 24 hr 10/11/24 04:36 WBC 4.3 L RBC 3.24 L Hgb 10.7 L Hct 31.0 L MCV 95.7 MCH 32.9 MCHC 34.3 RDW 15.4 H Plt Count 244 Sodium 139 Potassium 4.2 Chloride 100 Carbon Dioxide 35 H BUN 43 H Creatinine 1.56 H Estimated GFR 46 L BUN/Creatinine Ratio 27.6 H Glucose 96 Calcium 9.5 PFSH Medical History History of urinary retention Elevated serum creatinine History of sepsis History of kidney stones Urine retention History of pulmonary hypertension Presence of IVC filter Morbid obesity with BMI of 50.0-59.9, adult Pulmonary edema (06/2022) Peripheral neuropathy BPH (benign prostatic hyperplasia) GERD (gastroesophageal reflux disease) Thrombocytopenia Nonischemic cardiomyopathy Severe muscle deconditioning Acute respiratory failure with hypoxia Acute on chronic systolic heart failure Pneumonia Acute hypoxemic respiratory failure Pneumonia Vision disorder Hearing loss Sleep apnea (~1989) Fractures (~1989) Foot pain (~1989) Chronic back pain (~2009) Measles (~1959) Chicken pox (~1959) Irritable bowel syndrome (~2014) Low testosterone (~1989) Deep vein thrombosis (~1989) Atrial fibrillation (~2014) Surgical History Status post implantation of mitral valve leaflet clip (06/10/23) AICD (automatic cardioverter/defibrillator) present (06/13/22) Anesthesia History of back surgery History of tonsillectomy History of surgery (~2015) Mehdi filter in place (~1992) Social History household members: spouse Smoking Status: Never smoker alcohol intake: current Assessment & Plan Assessment & Plan narrative: 1. Acute hypoxic respiratory failure, present on admission and improving. 2. Acute on chronic systolic heart failure, active. 3. Nonischemic cardiomyopathy, active. 4. Permanent atrial fibrillation, stable. 5. Dilated ascending aorta, stable. 6. ICD pacemaker implant, stable. 7. Pulmonary hypertension, stable. 8. Remote pulmonary embolism, stable. On chronic anticoagulation for this and for atrial fibrillation. 9. Morbid obesity with BMI 40, active. Plan: -Decrease Lasix to 20 mg BID and follow BMP -PT evaluation to see how debilitated he is. -CPAP at night. ANTHONY: 10/12 (HH vs SNF) Full code, limited effort of 10 minutes or less. Needs another night in the hospital for ongoing diuresis and physical therapy evaluation. Time-Based Coding :: [TOTAL MINUTES] spent with patient and on the chart (including review of chart, obtaining history, exam, reviewing outside data, placing orders, documenting exam and treatment plan, and counseling patient) on [DATE]. Quality VTE Deep Vein Thrombosis/Pulmonary Embolism Present on Admission: No
[2024-10-11] MEDS: GABAPENTIN 300 MG CAPSULE PO (09:57)
[2024-10-11] MEDS: SACUBITRIL VALSARTAN 1 EACH PO ×2 (09:57→20:56)
[2024-10-11] MEDS: METOPROLOL ER 25 MG TABLET PO (09:57)
[2024-10-11] MEDS: TAMSULOSIN 0.4 MG CAPSULE 0.8 MG PO (09:57)
[2024-10-11] MEDS: LACTOBACILLUS ACIDOPHILUS TABLET 1 EACH PO ×2 (09:58→20:54)
[2024-10-11] MEDS: APIXABAN 5 MG TABLET PO ×2 (09:58→20:55)
[2024-10-11] MEDS: AMIODARONE 200 MG TABLET PO (09:58)
[2024-10-11] MEDS: PANTOPRAZOLE DR 40 MG TABLET PO (09:58)
[2024-10-11] MEDS: MULTIVITAMIN 1 TABLET 1 TAB PO (09:58)
--- NOTE | 2024-10-11 13:33 | OT.IP.TRT ---
Current Diagnoses Acute on chronic systolic (congestive) heart failure (10/09/24) Occupational Therapy Treatment Note M2 OT-IP Current Condition Start: 10/10/24 13:23 Freq: Status: Active Protocol: Document 10/10/24 12:30 [facility] (Rec: 10/10/24 13:48 [facility] Desktop) Occupational Therapy Current Condition Current Condition Evaluation Date 10/10/24 Treatment Diagnosis Acute hypoxic respiratory failure Diagnosis Onset Date 10/09/24 M3 OT- IP Subjective and Pain Start: 10/10/24 13:23 Freq: Status: Active Protocol: Document 10/11/24 14:09 [facility] (Rec: 10/11/24 14:17 [facility] Desktop) OT- Subjective Occupational Therapy Visit Type Type Treatment Note Visit Start Time 13:06 Visit Stop Time 13:33 Occupational Therapy Visit Comments Patient Comments Pt agreed to get up from the bed to the recliner, pt's present for the session. Patient/Caregiver TO go home. Goals OT Pain Assessment Pain When Pain Assessed During Mobility Pain Present Pain Present Pain Reported M4 OT- IP ADL's Start: 10/10/24 13:23 Freq: Status: Active Protocol: Document 10/10/24 12:30 [facility] (Rec: 10/10/24 13:48 [facility] Desktop) OT VAL-Rbfm-Izvopga General Evaluation Self-Feeding Ability Independent OT ADL-Grooming Comments OT Grooming Comments Not performed. OT ADL-Oral Care Comments Oral Care Comments Not performed. OT ADL-Dressing Comments OT Dressing Comments Pt has compression stocking at home and states hopefully his to bring them in. Pt gets assist but able to educated that there are devices to assist him if he is ever interested to do it on his own. OT ADL-Toileting Comments OT Toileting Pt states prior able do toileting on his own and has a Comments BSC at home. OT ADL-Bathing Comments OT Bathing Comments Pt has a walk in tub. Pt states has figured out with his caregiver to get up sinking a cushion down in the water to sit on so easier to stand. M5 OT- IP IADL's Start: 10/10/24 13:23 Freq: Status: Active Protocol: Document 10/10/24 12:30 [facility] (Rec: 10/10/24 13:48 [facility] Desktop) OT-Instrumental Activities of Daily Living Home Safety Awareness Awareness of Need Good Awareness for Assistance at Home Ability to Problem Able to Problem Solve Solve Emergency Situations Medication Management Medication Caregiver Administers Management Money Management Money Management Caregiver Provides Assistance Meal Preparation Meal Preparation Caregiver Provides Assist Cyber Workforce Developer And Manager Cyber Workforce Developer And Manager Caregiver Provides Assist M6 OT- IP Functional Cognition Start: 10/10/24 13:23 Freq: Status: Active Protocol: Document 10/11/24 14:09 [facility] (Rec: 10/11/24 14:17 [facility] Desktop) Cognitive Factors Limiting Selfcare Function Cognitive Comments Cognitive Assessment Pt intact, just needing encouragement for bed mobility Comments needs. M7 OT- IP Mobility and Balance Start: 10/10/24 13:23 Freq: Status: Active Protocol: Document 10/11/24 14:09 [facility] (Rec: 10/11/24 14:17 [facility] Desktop) OT- Bed Mobility Assessment Supine to Sit Supine to Sit Assist Contact Guard Assistance OT-Transfer Assessment Sit to and From Stand Sit to and from Contact Guard Assistance Stand Transfers Transfer Ability Standby Assistance Technique Transfer Destination Bed,Chair Transfer Technique Stand Step Pivot Devices Transfer Assistive Gait Belt,Front Wheeled Walker Devices Comments Mobility Comments Pt states his bed at home much easier to get out of. Increased time and cues to weight shift side to side so able to scoot to the edge of the bed. Having to hold the FWW in place so pt able to come to stand with CGA. Once on his feet SBA with FWW to walk in the room and pt states not wanting to do any self care needs at this time. OT- Balance Assessment Sitting Balance and Reactions Static Sitting Good Balance Ability Dynamic Sitting Good Balance Ability Standing Balance and Reactions Static Standing Fair Balance Ability Dynamic Standing Fair Balance Ability M8 OT- IP Objective Assessments Start: 10/10/24 13:23 Freq: Status: Active Protocol: Document 10/10/24 12:30 [facility] (Rec: 10/10/24 13:48 [facility] Desktop) OT Gross Range of Motion Upper Extremity Range of Motion Assessment Bilaterally Impaired ROM Impairments Decrease at end ROM. Pt has tightness in internal rotator. Able to go over stretches with pt and able to improve his ROM. OT Strength Upper Extremity Strength Assessment Bilaterally Impaired Comments Strength Comments BUE strength 4-/5 to 4+/5. M9 OT- IP Assessment and Plan Start: 10/10/24 13:23 Freq: Status: Active Protocol: Document 10/11/24 14:09 [facility] (Rec: 10/11/24 14:17 [facility] Desktop) OT Summary Assessment and Plan Potential Rehabilitation Good Potential Analytic Complexity Moderate at Evaluation Summary OT Impairments Range of Motion,Strength,Balance,Functional Mobility, Grooming,Dressing,Toileting,Toilet Transfers,Shower Transfers,Activity Tolerance Progress Towards Progressing Toward Goals Goals Assessment Summary Pt doing better today and able to get out of bed with increased time and assist to hold the FWW in place and CGA for safety to stand. The bars on the bed are covered with towel as pt complaining of pain to the back of his legs the bars are against him. Pt is still weak but both pt and refusing SNF. Pt's states they have a sit to stander if needed. Therefore pt to go home with 24/7 available assist and home health. Goals Self-Feeding Goal Independent Grooming Goal Independent Dressing Goal Moderate Assistance Toileting Goal Independent Toilet Transfer Goal Independent Days to Meet Goals 15 Frequency of Treatment Other frequency 5x/week Treatment Plan OT Treatment Plan ADL Training,Functional Mobility,Patient/Family Education,Discharge Planning Other Treatment Pt to be able to use the BSC with CGA with FWW. Recommendations and Next Treatment Focus Discharge Recommendations OT Discharge Home with 24/7 Assist Available,Home Health Recommendations Transportation Needs Private Vehicle at Discharge
--- NOTE | 2024-10-11 14:55 | CM.DPNOTE ---
DCP Cont [facility] scheduled for Sunday 10/15. Patient/sp continue to want home w/HH and therapies have cleared patient for this plan. Plan: Discharge home w/sp, [facility], care giving x4 hrs daily, patient has DME already at home. Send Nelson [facility] the DC Summary at SD. ANNA
--- NOTE | 2024-10-11 18:29 | PT.IPTN ---
Current Diagnoses Acute on chronic systolic (congestive) heart failure (10/09/24) Physical Therapy Treatment Note M2 PT-IP Current Condition Start: 10/10/24 11:57 Freq: NEEDED Status: Active Protocol: Document 10/11/24 18:20 [facility] (Rec: 10/11/24 18:29 [facility] [id number]) Physical Therapy Current Condition Current Condition Evaluation Date 10/10/24 Treatment Diagnosis CHF M3 PT-IP Subjective Start: 10/10/24 11:57 Freq: NEEDED Status: Active Protocol: Document 10/11/24 18:20 [facility] (Rec: 10/11/24 18:29 [facility] [id number]) Subjective Physical Therapy Visit Type Type Treatment Note Visit Start Time 17:08 Visit Stop Time 17:35 Number of CONTINUOUS MINER Visits 0 Physical Therapy Visit Comments Patient Comments Pt in bed finishing dinner, pleasant and agreeable to PT tx. Spouse in room. Therapy Pain Assessment Pain When Pain Assessed At Rest Pain Present Pain Present Pain Reported Location buttock Intensity 5 Scale Used Numeric (0 - 10) M4 PT-IP Mobility and Gait Start: 10/10/24 11:57 Freq: NEEDED Status: Active Protocol: Document 10/11/24 18:20 [facility] (Rec: 10/11/24 18:29 [facility] [id number]) PT-Bed Mobility Assessment Rolling Type of Rolling Roll to Left Level of Assist Standby Assistance,1 Person Assistance Supine to Sit Supine to Sit Standby Assistance,1 Person Assistance Scooting Scooting to Edge of Standby Assistance Bed PT-Transfer Assessment Sit to and From Stand Sit to and from Contact Guard Assistance Stand Equipment Transfer Assistive Front Wheeled Walker Device Transfers Transfer Destination Bedside Commode Transfer Technique Stand Step Pivot Transfer Ability Level of Assist Contact Guard Assistance Comments Mobility Comments Increased time for transfer to EOB over side bed rail, use of elevated HOB and bed rail to pull self, VC for increased lateral leaning for reciprocal scooting to EOB. PT stabilized FWW while pt pulled to stand to FWW with CGA Gait Assessment Gait Gait Assistance Contact Guard Assist Required: Distance (Feet) 50 Assistive Devices Assistive Device Gait Belt,Front Wheeled Walker Gait Deviations General Gait Pattern Decreased Feet Clearance Factors Limiting Gait Function Factors Limiting Decreased Sensation,Decreased Strength,Incoordination, Gait Function Limited Range of Motion Comments Gait Comments Amb around room, slow but steady without LOB. Decreased B foot clearance d/t poor B DF from neuropathy. PT-Balance Assessment Sitting Balance and Reactions Static Sitting Good Balance Ability Dynamic Sitting Good Balance Ability Standing Balance and Reactions Static Standing Good Balance Ability Dynamic Standing Fair Balance Ability Device Used RW M5 PT-IP Objective Assessments Start: 10/10/24 11:57 Freq: NEEDED Status: Active Protocol: Document 10/11/24 18:20 [facility] (Rec: 10/11/24 18:29 [facility] [id number]) Orientation Orientation/Cognition Level of Alertness Alert M6 PT-IP Treatment Start: 10/10/24 11:57 Freq: NEEDED Status: Active Protocol: Document 10/11/24 18:20 [facility] (Rec: 10/11/24 18:29 [facility] [id number]) Physical Therapy Treatment Other Treatments Other Treatment supine BLE x15 each: heel slides, quad sets, hip abd/ Performed add M7 PT-IP Assessment and Plan Start: 10/10/24 11:57 Freq: NEEDED Status: Active Protocol: Document 10/11/24 18:20 [facility] (Rec: 10/11/24 18:29 [facility] [id number]) PT Summary Assessment and Plan Potential Rehabilitation Good Potential Status of Condition Evolving at Evaluation Summary Impairments Pain,ROM,Strength,Balance,Coordination,Sensation,Tone, Bed Mobility,Transfers,Gait,Activity Tolerance Assessment Summary Pt tolerated session well with increased time needed but without physical assist needed aside from stabilizing FWW for sit<>stand. Pt amb around room and then transferred to [facility] where he was left per pt request, call light in reach, spouse in room, and nursing notified of pt status. Goals Bed Mobility Goal Standby Assistance Transfer Goal Standby Assistance,Front Wheeled Walker Gait Goal Standby Assistance,Front Wheel Walker Gait Distance 20 Days to Meet Goals 5 Frequency of Treatment Frequency Of Once a Day Treatment Treatment Plan Physical Therapy Bed Mobility Training,Transfer Training,Gait Training, Treatment Plan Therapeutic Exercise,Balance Retraining,Discharge Planning,Hot or Cold Pack,Neuromuscular Re-ed, Coordination Retraining,Manual Therapy Other defer further treatment to out-pt PT Recommendations and Next Treatment Focus Recommendations To Nursing Amount of Assist 1 Person Assist Needed Discharge Recommendations PT Discharge Home with 24/10 Assist Available,Home Health Recommendations Transportation Needs Private Vehicle,Wheelchair/Cabulance at Discharge - PT assist 1 person
[2024-10-11] MEDS: GABAPENTIN 300 MG CAPSULE 600 MG PO (20:55)
[2024-10-11] MEDS: FUROSEMIDE 20 MG/2 ML VIAL IV (20:57)
[2024-10-12] VITALS: BP 107/68; PULSE 70; RESP 19; TEMP 36.2; O2SAT 94
[2024-10-12 04:00] VITALS: BP 101/64; PULSE 71; RESP 19; TEMP 36.1; O2SAT 92
[2024-10-12 05:29] LABS: Blood Urea Nitrogen 49 mg/dL (9-20); Calcium 9.2 mg/dL (8.4-10.2); Carbon Dioxide 29 mmol/L (22-32); Chloride 99 mmol/L (98-107); Estimated Glomerular Filt Rate 48 mL/min (>60); Glucose 94 mg/dL (70-99); HEMOLYSIS < 15 (0-50); Potassium 3.9 mmol/L (3.4-5.1); Sodium 136 mmol/L (137-145)
[2024-10-12 09:00] VITALS: BP 98/56; BP 98/58; PULSE 56; PULSE 70; RESP 15; TEMP 35.6; O2SAT 96
[2024-10-12] MEDS: TAMSULOSIN 0.4 MG CAPSULE 0.8 MG PO (09:40)
[2024-10-12] MEDS: FUROSEMIDE 20 MG/2 ML VIAL IV (09:43)
[2024-10-12] MEDS: GABAPENTIN 300 MG CAPSULE PO (09:43)
[2024-10-12] MEDS: PANTOPRAZOLE DR 40 MG TABLET PO (09:57)
[2024-10-12] MEDS: AMIODARONE 200 MG TABLET PO (09:57)
[2024-10-12] MEDS: LACTOBACILLUS ACIDOPHILUS TABLET 1 EACH PO (09:57)
[2024-10-12] MEDS: APIXABAN 5 MG TABLET PO (09:57)
[2024-10-12] MEDS: MULTIVITAMIN 1 TABLET 1 TAB PO (09:57)
--- NOTE | 2024-10-12 10:55 | PM.DS.1 ---
History of Present Illness History of Present Illness Date Patient Seen: 10/12/24 Chief complaint: Short of Breath, weakness Narrative: Chief complaint: History of present illness: 10/09: 74-year-old male who presents with a progressive shortness a breath, and weakness. He has become bed-bound over the last day or 2 because of inability to stand up. EMS was called and at the ER he was found to be hypoxemic and have pulmonary edema on chest x-ray. He was placed on oxygen and given IV Lasix. He did diuresing improved. He came off from oxygen prior to coming up stairs. He denies pedal edema but has had orthopnea. He also uses CPAP chronically at night. He was a known history of systolic heart failure, due to a nonischemic cardiomyopathy. He had a left heart catheterization in 2014 with no obstructive CAD. EF has been as low as 20% with his most recent being 45%. He also has history of complete heart block with torsade de pointes and cardiac arrest in 2022. He was treated with an ICD. He would in addition, he was permanent atrial fibrillation and is on Eliquis as well as severe mitral regurgitation. Other medical issues include remote pulmonary embolism,, tracheocutaneous fistula history, pulmonary hypertension, CAROL, GERD, obesity, and anemia. He lives with his in [place]. He was full resuscitation but only once a short effort of less than 10 minutes. Hospital course: 10/10: He was not short of breath today but is still very weak. His is at the bedside. Does have a baseline unstable gait and uses a walker to ambulate. His notes recent dietary indiscretion with salami which may have contributed to his acute volume overload. 10/11: His creatinine is relatively stable at 1.56. The hemoglobin aditya from 10.2 up to 10.7. He has caregivers 4 hours a day already at home. He is fully oriented, quite tired. He tells me that he lives with his and follows with Dr. Lopez for PCP. 10/12: Patient asymptomatic ready to go home metoprolol and Lasix held this morning for hypotension we will start p.o. tomorrow Review of systems: Physical exam: Assessment and plan: 1. Acute hypoxic respiratory failure, present on admission and improving. 2. Acute on chronic systolic heart failure, active. 3. Nonischemic cardiomyopathy, active. 4. Permanent atrial fibrillation, stable. 5. Dilated ascending aorta, stable. 6. ICD pacemaker implant, stable. 7. Pulmonary hypertension, stable. 8. Remote pulmonary embolism, stable. On chronic anticoagulation for this and for atrial fibrillation. 9. Morbid obesity with BMI 40, active. Plan: -Decrease Lasix to 20 mg p.o. BID and follow BMP -PT evaluation to see how debilitated he is. -CPAP at night. ANTHONY: 10/12 ( vs SNF) Full code, limited effort of 10 minutes or less. Needs another night in the hospital for ongoing diuresis and physical therapy evaluation. Time-Based Coding :: 35 minutes spent with patient and on the chart (including review of chart, obtaining history, exam, reviewing outside data, placing orders, documenting exam and treatment plan, and counseling patient). Discharge Providers Provider Date of admission: 10/09/24 13:36 Discharge Date: 10/12/24 Primary care physician: Matt Lopez MD Consults: 10/10/24 10:12 Consult to Occupational Therapy Evaluate & Treat Comment: Physician Instructions: Evaluate and treat Consult to Physical Therapy Evaluate & Treat Comment: Physician Instructions: Evaluate and Treat 10/10/24 14:28 Consult to Home Health Routine Comment: Reason For Exam: Home Health at Discharge Discharge provider: Toby Pascal MD Exam Vital Signs (past 8 hours): - 10/12/24 04:00 Temperature 97.0 F L Pulse Rate 71 Respiratory Rate 19 Blood Pressure 101/64 Pulse Oximetry 92 Oxygen Delivery Method Room Air Oxygen Flow Rate 0 Objective Labs 10/11/24 04:36 10/12/24 04:35 Labs: Laboratory Results - last 24 hr 10/12/24 04:35 Sodium 136 L Potassium 3.9 Chloride 99 Carbon Dioxide 29 BUN 49 H Creatinine 1.49 H Estimated GFR 48 L BUN/Creatinine Ratio 32.9 H Glucose 94 [facility] 9.2 [facility] History History of urinary retention Elevated serum creatinine History of sepsis History of kidney stones Urine retention History of pulmonary hypertension Presence of IVC filter Morbid obesity with BMI of 50.0-59.9, adult Pulmonary edema (06/2022) Peripheral neuropathy BPH (benign prostatic hyperplasia) GERD (gastroesophageal reflux disease) Thrombocytopenia Nonischemic cardiomyopathy Severe muscle deconditioning Acute respiratory failure with hypoxia Acute on chronic systolic heart failure Pneumonia Acute hypoxemic respiratory failure Pneumonia Vision disorder Hearing loss Sleep apnea (~1989) Fractures (~1989) Foot pain (~1989) Chronic back pain (~2009) Measles (~1959) Chicken pox (~1959) Irritable bowel syndrome (~2014) Low testosterone (~1989) Deep vein thrombosis (~1989) Atrial fibrillation (~2014) Surgical History Status post implantation of mitral valve leaflet clip (06/10/23) AICD (automatic cardioverter/defibrillator) present (06/13/22) Anesthesia History of back surgery History of tonsillectomy History of surgery (~2015) Mehdi filter in place (~1992) Social History household members: spouse Smoking Status: Never smoker alcohol intake: current Discharge Plan Discharge Plan Patient Disposition: Home Discharge orders & Medications Prescriptions: New furosemide 20 mg tablet 20 mg PO BID Qty: 60 0RF Continued hydrocodone-acetaminophen 5-325 mg tablet 1 tab PO Q4-6H PRN (Reason: pain) Qty: 15 0RF cyclobenzaprine 5 mg tablet 5 mg PO TID PRN (Reason: muscle spasm) Qty: 60 0RF metoprolol succinate 25 mg tablet extended release 24 hr 25 mg PO DAILY Eliquis 5 mg tablet See Rx Instructions .ROUTE .COMPLEX Qty: 180 3RF Dose Instruction: TAKE 1 TABLET TWICE A DAY Rx Instructions: TAKE 1 TABLET TWICE A DAY Disabled Parking See Rx Instructions .ROUTE .COMPLEX Qty: 365 0RF Rx Instructions: I find this patient to be medically disabled and qualified for Disabled Parking as indicated and signed on the accompanying Disabled Parking Application for Individuals (DME) Electric wheelchair See Rx Instructions .Route .MEDSUPPLY Qty: 1 0RF Rx Instructions: As directed tamsulosin 0.4 mg capsule 0.8 mg PO DAILY Qty: 180 1RF pantoprazole 40 mg tablet,delayed release (DR/EC) 40 mg PO DAILY Qty: 90 1RF gabapentin 300 mg capsule See Rx Instructions .ROUTE .COMPLEX Qty: 270 3RF Rx Instructions: 300mg in am and 600mg at bedtime. multivit with min-folic acid 0.4 mg Tablet 1 tab PO DAILY oxycodone 5 mg tablet 5 mg PO Q6H PRN (Reason: pain) Qty: 14 0RF amiodarone 200 mg tablet 200 mg PO DAILY Entresto 49-51 mg tablet 1 tab PO BID Adult 50 Plus Probiotic 4 billion cell capsule 4,000 mmu cells PO DAILY Rx Instructions: administer with a meal melatonin 10 mg capsule 10 mg PO BEDTIME PRN (Reason: sleep) epinephrine 0.3 mg/0.3 mL auto-injector 0.3 mg IM ONCE PRN (Reason: anaphylaxis) Rx Instructions: as a single dose; may repeat once Discontinued spironolactone 25 mg tablet 12.5 mg PO DAILY PRN (Reason: chf) Qty: 30 0RF Medication counseling provided by Pharmacist: No Follow up/Referrals: Matt Lopez MD [Primary Care Provider, [facility]] Visit Report/Discharge Packet Stand Alone Forms: Patient Portal/API, Stroke Signs & Symptoms Discharge Data Primary Care Provider: Matt Lopez Quality VTE Deep Vein Thrombosis/Pulmonary Embolism Present on Admission: No
--- NOTE | 2024-10-12 12:03 | CM.DPNOTE ---
DCP note ROLLER STITCHER reviewed EMR per provider in morning rounds, dc today with spouse/CGs/HH. ROLLER STITCHER met with pt and spouse in room. pt eager to dc. [facility] denies other questions/CM needs. f2f/order previously sent. ROLLER STITCHER emailed Shekhar/[facility] at [facility] available dc summary draft. P: dc today with [facility]. CM team will continue to follow in case any additional DCP needs arise PADDY Bess
--- NOTE | 2024-10-12 13:25 | PC.NURSE ---
Pt discharged to care of his . They will follow up with Huber Lopez and Joseph. Instructions given to and Pt. IV and tele d/c'd, meds accounted for along with belongings. Pt escorted to car by Breanna RITTER.
== END 2024-10-12 13:14 | disposition home health service (06) | DRG 291 ==
LOC: ED 09:04 → AC 13:37
PROVIDERS: Family Medicine; Internal Medicine; Admitting Provider Hospitalist; Emergency Provider Family Medicine; Family Provider Family Medicine; PCP Family Medicine; Referring Provider Family Medicine; Visit Provider Hospitalist
DX: I50.23 Acute on chronic systolic (congestive) heart failure (principal); J96.01 Acute respiratory failure with hypoxia; I48.21 Permanent atrial fibrillation; I42.8 Other cardiomyopathies; Z68.41 Body mass index [BMI] 40.0-44.9, adult; I77.819 Aortic ectasia, unspecified site; I27.20 Pulmonary hypertension, unspecified; E66.01 Morbid (severe) obesity due to excess calories; I95.9 Hypotension, unspecified; K21.9 Gastro-esophageal reflux disease without esophagitis; Z86.711 Personal history of pulmonary embolism; Z86.79 Personal history of other diseases of the circulatory system; Z95.0 Presence of cardiac pacemaker; Z79.01 Long term (current) use of anticoagulants
CPT/HCPCS: 36415; 71045; 71275; 80048; 80053; 81001; 82550; 82805; 83605; 83735; 83880; 84145; 84484; 85025; 85027; 85610; 87040; 87637; 93005; 93010; 96374; 97110; 97116; 97161; 97166; 97530; 99285; J1938; Q9967